=== PATIENT | male | born 1940 | race Caucasian/White ===

== ENCOUNTER 2016-03-19 15:30 | Emergency (ER) | payer MEDICARE ==
[2016-03-19] MEDS ORDERED: FLUTICASONE 50MCG/SPRAY NASAL 16GM EA NOSTRIL STA (16:15)
--- NOTE | 2016-03-19 16:19 | ED ---
ENT HPI - General Chief complaint: ENT Stated complaint: Nose Bleed Time Seen by Provider: 03/19/16 16:05 Source: patient, RN notes reviewed Mode of arrival: ambulatory Limitations: no limitations - History of Present Illness Initial comments: 75 yo male presents to the ER with cc of epistaxis. Patient has had 2 bloody noses today. Patient is on Eliquis. Patient denies any trauma or injury. Patient denies any sickness lately. Patient was able to stop the bloody nose at home the first time but then the second one started. Patient denies any other symptoms at this time. Patient denies any recent fever, chills, shortness of breath, chest pain, back pain, abdominal pain, nausea vomiting, numbness or tingling, dysuria or hematuria, constipation or diarrhea, headaches or visual changes, or any other current symptoms. - Related Data Home Medications Medication Instructions Recorded Confirmed Carvedilol [Coreg*] 12.5 mg PO AC-BID 07/13/13 03/19/16 Isosorbide Mononitrate [Imdur] 30 mg PO BID 07/13/13 03/19/16 Simvastatin [Zocor] 20 mg PO HS 07/13/13 03/19/16 Tiotropium 18 Mcg/Puff [Spiriva] 1 cap INHALATION RT-DAILY 07/13/13 03/19/16 hydrALAZINE HCL 25 mg PO BID 07/13/13 03/19/16 Tetrahydrozoline 0.05% Ophth 1 drop BOTH EYES TID PRN 05/16/14 03/19/16 [Visine Eye Drops] Albuterol Inhaler [Ventolin Hfa 1 - 2 puff INHALATION RT-Q6H PRN 10/08/14 Inhaler] Budesonide-Formot 160-4.5 Mcg 2 puff INHALATION RT-BID 10/08/14 03/19/16 [Symbicort 160-4.5 Mcg Inhaler] Folic Acid 1 mg PO DAILY 10/08/14 03/19/16 Ipratropium-Albuterol Nebulize 3 ml INHALATION RT-QID PRN 10/08/14 03/19/16 [Duoneb 0.5 mg-3 mg/3 ml Soln] Apixaban [Eliquis] 2.5 mg PO BID 03/19/16 03/19/16 Ascorbic Acid [Vitamin C] 250 mg PO DAILY 03/19/16 03/19/16 Aspirin EC [Ecotrin Low Dose] 81 mg PO DAILY 03/19/16 03/19/16 Ferrous Sulfate [Feosol] 325 mg PO TID 03/19/16 03/19/16 Furosemide [Lasix] 40 mg PO BID 03/19/16 03/19/16 Nitroglycerin Sl Tabs [Nitrostat] 0.4 mg SUBLINGUAL Q5M PRN 03/19/16 03/19/16 Polyethylene Glycol 3350 [Miralax] 17 gm PO DAILY 03/19/16 03/19/16 Potassium Chloride ER [K-Dur 20] 20 meq PO DAILY 03/19/16 03/19/16 Previous Rx's Medication Instructions Recorded Spironolactone [Aldactone] 25 mg PO DAILY #30 tab 05/19/14 Docusate [Colace] 100 mg PO BID PRN #0 cap 10/13/14 Psyllium Husk 100% [Metamucil 6 gm PO DAILY PRN #1 10/13/14 Packet] Allergies Allergy/AdvReac Type Severity Reaction Status Date / Time No Known Allergies Allergy Verified 03/19/16 16:12 Review of Systems ROS Statement: Those systems with pertinent positive or pertinent negative responses have been documented in the HPI. ROS Other: All systems not noted in ROS Statement are negative. Past Medical History Past Medical History: Atrial Fibrillation, Coronary Artery Disease (CAD), Heart Failure, COPD, CVA/TIA, Hyperlipidemia, Hypertension, Myocardial Infarction ([place]) , Sleep Apnea/CPAP/BIPAP Additional Past Medical History / Comment(s): blood transfusion/ANEMIA, STOPPED USING HIS CPAP MACHINE YEARS AGO, CONSTIPATION, SMALL SLIDING HIATAL HERNIA AND SMALL POLYP REMOVED.,HX MILD RENAL FAILURE.PT STATED HAS BEEN TRYING TO LOSE WT DOWN FROM 250 TO 236 Last Myocardial Infarction Date:: HAD X2 LAST ONE 2002 History of Any Multi-Drug Resistant Organisms: None Reported Past Surgical History: Appendectomy, Coronary Bypass/CABG Additional Past Surgical History / Comment(s): TRIPLE BYPASS, COLONOSCOPY/EGD Additional Past Anesthesia/Blood Transfusion Reaction / Comment(s): CLAUSTERPHOBIA Past Psychological History: No Psychological Hx Reported Smoking Status: Former smoker Past Alcohol Use History: Occasional Past Drug Use History: None Reported - Past Family History Father Family Medical History: Cancer Additional Family Medical History / Comment(s): OF PANCAREATIC CANER Mother Family Medical History: Diabetes Mellitus Additional Family Medical History / Comment(s): AT AGE 90 WAS IN PRETTY GOOD HEALTH FROM OLD AGE Brother(s) Family Medical History: Diabetes Mellitus Additional Family Medical History / Comment(s): X2 BROTHERS HAVE DIABETES General Exam Limitations: no limitations General appearance: alert, in no apparent distress Head exam: Present: atraumatic, normocephalic, normal inspection ENT exam: Present: normal exam, mucous membranes moist, other (bleeding noted on Kesselbach plexus in left anterior nare) Neck exam: Present: normal inspection. Absent: tenderness, meningismus, lymphadenopathy Respiratory exam: Present: normal lung sounds bilaterally. Absent: respiratory distress, wheezes, rales, rhonchi, stridor Cardiovascular Exam: Present: regular rate Neurological exam: Present: alert, oriented X3, CN II-XII intact. Absent: motor sensory deficit Psychiatric exam: Present: normal affect, normal mood Skin exam: Present: warm, dry, intact, normal color. Absent: rash Course Vital Signs 03/19/16 15:41 Temperature 97.0 F L Pulse Rate 72 Respiratory 18 Rate Blood Pressure 108/55 O2 Sat by Pulse 97 Oximetry Medical Decision Making - Medical Decision Making 75-year-old male presents to the emergency Department chief complaint of left- sided epistaxis. This time patient undergo cleansing of the nose. At this time and the patient knows was clamped and the bleeding did subside. We discussed Follow-Up. We Discussed Return Parameters. We Discussed All the Patient's and Family's Questions. They Stated They Understood. This Time the Patient Will Be Discharged Home. Disposition Clinical Impression: Anterior epistaxis Disposition: HOME SELF-CARE Condition: Stable Instructions: Nosebleed (ED) Additional Instructions: Please use medication as discussed. Please follow up with family doctor if symptoms have not improved over the next two days. Please return to the emergency room if your symptoms increase or worsen or for any other concerns. No touching the nose blowing the nose is no picking the nose and tells Wednesday morning Apply bacitracin and Neosporin or Vaseline to the upper lip just under the nose. If you do develop another nosebleed spray Afrin up each nostril and crampyfor 15 minutes and reassessed you can plan for another 15 minutes as needed. Referrals: Nasim Thacker DO [Primary Care Provider] - 1-2 days Time of Disposition: 17:20
[2016-03-19] MEDS ORDERED: OXYMETAZOLINE 0.05% NASL SPRAY 15 ML NASAL STA (16:22)
[2016-03-19 17:32] VITALS: BP 118/58; PULSE 85; RESP 24; TEMP 97.9
== END 2016-03-19 17:31 | disposition home or self-care (01) ==
LOC: EC 15:30
DX: R04.0 Epistaxis (principal); I48.91 Unspecified atrial fibrillation; E78.5 Hyperlipidemia, unspecified; I50.9 Heart failure, unspecified; J44.9 Chronic obstructive pulmonary disease, unspecified; I10 Essential (primary) hypertension; I25.10 Atherosclerotic heart disease of native coronary artery without angina pectoris; I25.2 Old myocardial infarction; Z99.89 Dependence on other enabling machines and devices; G47.30 Sleep apnea, unspecified; Z79.899 Other long term (current) drug therapy; Z79.51 Long term (current) use of inhaled steroids; Z79.82 Long term (current) use of aspirin; Z79.01 Long term (current) use of anticoagulants; Z86.73 Personal history of transient ischemic attack (TIA), and cerebral infarction without residual deficits; Z87.891 Personal history of nicotine dependence
CPT/HCPCS: 99283

== ENCOUNTER → 2016-04-11 | Outpatient (CLI) | payer MEDICARE ==
--- NOTE | 2016-04-11 10:35 | CT ---
EXAMINATION TYPE: CT chest wo con DATE OF EXAM: 04/11/2016 10:23 AM COMPARISON: 07/14/2010 HISTORY: SOB, Abnormal finding CT DLP: 582.50 mGycm Automated exposure control for dose reduction was used. FINDINGS: The heart is enlarged. Emphysematous changes are noted. Sternotomy noted. Degenerative change of the spine. Within the right upper lobe is a spiculated lesion measuring 1.4 cm. Small malignancy not excluded. R ecommend PET scan correlation. A 6 mm nodule superior segment left lower lobe image 28 may be postinflammatory. Lack of IV contrast limits assessment for adenopathy or mass. There are numerous subpleural nodules m easuring less than centimeter are felt most likely postinflammatory. Image 53 demonstrates a 2 mm rig ht lower lobe pulmonary nodule. Right lung apex. Nonspecific nodularity adrenal glands be seen with adrenal adenoma. There is vascular calcifications and evidence of cholelithiasis. No pleural effusion or pneumothorax. Coronary artery calcification seen. Lack of contrast limits assessment for adenopathy. Calcified subcarinal adenopathy noted. IMPRESSION: COPD WITH NO ACUTE INFILTRATE. HOWEVER, THERE IS A SPICULATED 1.4 CM NODULE. ADDITIONAL TINY NODULARI TY DISCUSSED ABOVE IS TOO SMALL TO CHARACTERIZE. RECOMMEND FOLLOW-UP PET SCAN TO ASSESS FOR MALIGN ZOE. THERE IS A EXOPHYTIC LESION EXTENDING OFF MID POLE RIGHT KIDNEY MEASURING 2.6 CM AND 60 [place] UN ITS DOES NOT MEET THE CRITERIA OF A SIMPLE CYST. WOULD RECOMMEND FOLLOW-UP ULTRASOUND TO ASSESS FOR S OLID MASS.. 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
== END | disposition home or self-care (01) ==
LOC: RADCTMAIN 09:40
PROVIDERS: ATTEND Family Medicine
DX: J44.9 Chronic obstructive pulmonary disease, unspecified (principal); R91.8 Other nonspecific abnormal finding of lung field; I25.10 Atherosclerotic heart disease of native coronary artery without angina pectoris; I51.7 Cardiomegaly
CPT/HCPCS: 71250

== ENCOUNTER 2016-08-09 21:12 | Inpatient (IN) | payer OTHER, MEDICARE ==
[2016-08-09] MEDS ORDERED: MORPHINE SULFATE 2 MG/ML SYRINGE IVP ONE (21:35)
[2016-08-09] MEDS ORDERED: ONDANSETRON 4 MG/2 ML VIAL IM STA (21:35)
[2016-08-09] MEDS ORDERED: SODIUM CHLORIDE 0.9% 1,000 ML IV STA (21:36)
--- NOTE | 2016-08-09 22:05 | XR ---
EXAMINATION TYPE: XR Hip Complete RT DATE OF EXAM: 08/09/2016 9:59 PM COMPARISON: NONE HISTORY: Fell and hit pain TECHNIQUE: 3 views FINDINGS: There is a nondisplaced intratrochanteric fracture of the right femur. There is no dislocat ion. There is atherosclerotic vascular calcification. IMPRESSION: Acute intertrochanteric fracture right femur.
--- NOTE | 2016-08-09 22:07 | XR ---
EXAMINATION TYPE: XR chest 1V DATE OF EXAM: 08/09/2016 9:49 PM COMPARISON: 05/15/2014 HISTORY: Syncope TECHNIQUE: Single frontal view of the chest is obtained. FINDINGS: There is coarsening of interstitial markings. There is no heart failure. There are sternal wires. There is slight blunting of right costophrenic angle. IMPRESSION: No heart failure. Mild pulmonary fibrotic changes. Small right pleural effusion or pleural reaction. This is increased compared to last exam.
--- NOTE | 2016-08-09 22:18 | XR ---
EXAM: XR Right Knee, 1 or 2 views CLINICAL HISTORY: Reason: Status post fall TECHNIQUE: Frontal and lateral views of the right knee. COMPARISON: No relevant prior studies available. FINDINGS: Bones/joints: The bones are mildly demineralized. No acute fracture or dislocation is seen. No joint effusion. There are minor degenerative changes without significant joint space narrowing. Mild smooth, nonaggressive appearing periosteal reaction is seen along the medial margin of the proximal fibular shaft. Soft tissues: Unremarkable. Vasculature: Diffuse arterial vascular calcifications are present. Tiny pretibial phlebolith noted. IMPRESSION: No acute right knee fracture or dislocation is seen, as above. Note, acute nondisplaced fractures may initially be inapparent, and short- term follow-up could be considered if concern or symptoms persist.
[2016-08-09 22:34] LABS: Anisocytosis Slight; Basophils % (A) 0 %; CH 26.8; CHCM 30.9; Eosinophils # (A) 0.1 k/uL (0-0.7); Eosinophils % (A) 1 %; HCT 31.3 % (39.0-53.0); HDW 2.77; HGB 9.8 gm/dL (13.0-17.5); Hypochromasia Moderate; Luc # (Auto) 0.15; Luc % (Auto) 1; Lymphocytes # (A) 1.2 k/uL (1.0-4.8); Lymphocytes % (A) 11 %; MCH 27.1 pg (25.0-35.0); MCHC 31.1 g/dL (31.0-37.0); Mean Platelet Volume 8.5; Monocytes # (A) 0.5 k/uL (0-1.0); Monocytes % (A) 4 %; Neutrophils # (A) 9.4 k/uL (1.3-7.7); Neutrophils % (A) 83 %; RDW 17.2 % (11.5-15.5); WBC 11.3 k/uL (3.8-10.6); WBC (Perox) 11.59
[2016-08-09 22:39] LABS: INR 1.3 (<1.1); Prothrombin Time 12.5 sec (9.0-12.0)
[2016-08-09 22:44] LABS: Calcium 8.7 mg/dL (8.4-10.2); Potassium 4.7 mmol/L (3.5-5.1); Total Bilirubin 0.6 mg/dL (0.2-1.3); Total Protein 6.5 g/dL (6.3-8.2)
--- NOTE | 2016-08-09 23:01 | ED ---
Fall HPI - General Chief Complaint: Fall Stated Complaint: Possible Hip fx Time Seen by Provider: 08/09/16 21:17 Source: patient, EMS Mode of arrival: EMS - History of Present Illness Initial Comments: 75 years old male, got done now with his upper at his son's house in now because he was heading to his own place family dog ran towards him, patient fell and landed on the right buttocks and now complaining about excruciating pain and he has a hard time bearing weight and complaining about some pain in the right knee as he is well no head injury no loss of consciousness, it was an accident there was no prior palpitation or dizziness or chest pain which caused the fall. Review of system is negative otherwise - Related Data Home Medications Medication Instructions Recorded Confirmed Carvedilol [Coreg*] 12.5 mg PO AC-BID 07/13/13 08/09/16 Isosorbide Mononitrate [Imdur] 30 mg PO BID 07/13/13 08/09/16 Tiotropium 18 Mcg/Puff [Spiriva] 1 cap INHALATION RT-DAILY 07/13/13 08/09/16 hydrALAZINE HCL 25 mg PO BID 07/13/13 08/09/16 Albuterol Inhaler [Ventolin Hfa 1 - 2 puff INHALATION RT-Q6H PRN 10/08/14 Inhaler] Budesonide-Formot 160-4.5 Mcg 2 puff INHALATION RT-BID 10/08/14 08/09/16 [Symbicort 160-4.5 Mcg Inhaler] Folic Acid 1 mg PO DAILY 10/08/14 08/09/16 Ipratropium-Albuterol Nebulize 3 ml INHALATION RT-QID PRN 10/08/14 08/09/16 [Duoneb 0.5 mg-3 mg/3 ml Soln] Apixaban [Eliquis] 2.5 mg PO BID 03/19/16 08/09/16 Ascorbic Acid [Vitamin C] 250 mg PO DAILY 03/19/16 08/09/16 Aspirin EC [Ecotrin Low Dose] 81 mg PO DAILY 03/19/16 08/09/16 Ferrous Sulfate [Feosol] 650 mg PO TID 03/19/16 08/09/16 Furosemide [Lasix] 80 mg PO DAILY 03/19/16 08/09/16 Nitroglycerin Sl Tabs [Nitrostat] 0.4 mg SUBLINGUAL Q5M PRN 03/19/16 08/09/16 Polyethylene Glycol 3350 [Miralax] 17 gm PO DAILY 03/19/16 08/09/16 Potassium Chloride ER [K-Dur 20] 20 meq PO QID 03/19/16 08/09/16 Cyanocobalamin (Vitamin B-12) 1,000 mcg PO DAILY 08/09/16 08/09/16 [Vitamin B-12] Sennosides [Senna] 8.6 mg PO DAILY PRN 08/09/16 08/09/16 Simvastatin 40 mg PO HS 08/09/16 08/09/16 Allergies Allergy/AdvReac Type Severity Reaction Status Date / Time No Known Allergies Allergy Verified 08/09/16 21:20 Review of Systems ROS Statement: Those systems with pertinent positive or pertinent negative responses have been documented in the HPI. ROS Other: All systems not noted in ROS Statement are negative. Past Medical History Past Medical History: Atrial Fibrillation, Coronary Artery Disease (CAD), Heart Failure, COPD, CVA/TIA, Hyperlipidemia, Hypertension, Myocardial Infarction ([place]) , Sleep Apnea/CPAP/BIPAP Additional Past Medical History / Comment(s): blood transfusion/ANEMIA, STOPPED USING HIS CPAP MACHINE YEARS AGO, CONSTIPATION, SMALL SLIDING HIATAL HERNIA AND SMALL POLYP REMOVED.,HX MILD RENAL FAILURE.PT STATED HAS BEEN TRYING TO LOSE WT DOWN FROM 250 TO 236 Last Myocardial Infarction Date:: HAD X2 LAST ONE 2002 History of Any Multi-Drug Resistant Organisms: None Reported Past Surgical History: Appendectomy, Coronary Bypass/CABG Additional Past Surgical History / Comment(s): TRIPLE BYPASS, COLONOSCOPY/EGD Additional Past Anesthesia/Blood Transfusion Reaction / Comment(s): CLAUSTERPHOBIA Past Psychological History: No Psychological Hx Reported Smoking Status: Former smoker Past Alcohol Use History: Occasional Past Drug Use History: None Reported - Past Family History Father Family Medical History: Cancer Additional Family Medical History / Comment(s): OF PANCAREATIC CANER Mother Family Medical History: Diabetes Mellitus Additional Family Medical History / Comment(s): AT AGE 90 WAS IN PRETTY GOOD HEALTH FROM OLD AGE Brother(s) Family Medical History: Diabetes Mellitus Additional Family Medical History / Comment(s): X2 BROTHERS HAVE DIABETES General Exam - General Exam Comments Initial Comments: General: The patient is awake and alert, in no distress, he is in pain especially when he moves his Skin: Skin is warm and dry and no rashes or lesions are noted. Eye: Pupils are equal, round and reactive to light, extra-ocular movements are intact; there is normal conjunctiva bilaterally. Ears, nose, mouth and throat: There are moist mucous membranes and no oral lesions. Neck: The neck is supple, there is no tenderness Cardiovascular: There is a regular rate and rhythm. No murmur, rub or gallop is appreciated. The scar from his previous CABG in the sternal area Respiratory: To auscultation bilateral, decreased breath sounds really Gastrointestinal: Soft, non-distended, non-tender abdomen without masses or organomegaly noted. There is no rebound or guarding present. Bowel sounds are unremarkable. Back: There is no tenderness to palpation in the midline. There is no obvious deformity. Musculoskeletal: Right lower extremity he is rolling and external rotation, any movement causes excruciating pain distal lower extremity is intact as well as neurovascular exam is concerned his motor sensory functions are intact Neurological: CN II-XII intact, Cranial nerves III through XII are intact. There are no obvious motor or sensory deficits. Coordination appears grossly intact. Speech is normal. Psychiatric: Cooperative, appropriate mood & affect, normal judgment. Limitations: no limitations Course Vital Signs 08/09/16 21:14 Temperature 97.4 F L Pulse Rate 78 Respiratory 20 Rate Blood Pressure 103/56 O2 Sat by Pulse 97 Oximetry EKG reveals atrial fibrillation ventricular rate of 77 QRS duration is 142 QT/ QTc is 440/497 at the review of this EKG reveals some T-wave inversion in V1 also has some conduction defect in the chest leads V1 and V2 and V3 no ST elevation or ST depression noticed in this EKG Medical Decision Making - Lab Data Result diagrams: 08/09/16 22:23 08/09/16 22:23 Lab Results 08/09/16 08/09/16 08/09/16 Range/Units 22:23 22:23 22:23 WBC 11.3 H (3.8-10.6) k/uL RBC 3.60 L (4.30-5.90) m/uL Hgb 9.8 L (13.0-17.5) gm/dL Hct 31.3 L (39.0-53.0) % MCV 87.0 (80.0-100.0) fL MCH 27.1 (25.0-35.0) pg MCHC 31.1 (31.0-37.0) g/dL RDW 17.2 H (11.5-15.5) % Plt Count 240 (150-450) k/uL Neutrophils % 83 % Lymphocytes % 11 % Monocytes % 4 % Eosinophils % 1 % Basophils % 0 % Neutrophils # 9.4 H (1.3-7.7) k/uL Lymphocytes # 1.2 (1.0-4.8) k/uL Monocytes # 0.5 (0-1.0) k/uL Eosinophils # 0.1 (0-0.7) k/uL Basophils # 0.0 (0-0.2) k/uL Hypochromasia Moderate Anisocytosis Slight PT 12.5 H (9.0-12.0) sec INR 1.3 (<1.1) Sodium 137 (137-145) mmol/L Potassium 4.7 (3.5-5.1) mmol/L Chloride 105 (98-107) mmol/L Carbon Dioxide 25 (22-30) mmol/L Anion Gap 7 mmol/L BUN 23 H (9-20) mg/dL Creatinine 1.80 H (0.66-1.25) mg/dL Est GFR (MDRD) Af Amer 45 (>60 ml/min/1.73 sqM) Est GFR (MDRD) Non-Af 37 (>60 ml/min/1.73 sqM) Glucose 121 H (74-99) mg/dL Calcium 8.7 (8.4-10.2) mg/dL Total Bilirubin 0.6 (0.2-1.3) mg/dL AST 18 (17-59) U/L ALT 25 (21-72) U/L Alkaline Phosphatase 47 (38-126) U/L Total Protein 6.5 (6.3-8.2) g/dL Albumin 3.0 L (3.5-5.0) g/dL Disposition Clinical Impression: Fall, Closed right hip fracture, Contusion of right knee Disposition: ADMITTED IP TO THIS HOSP Referrals: Nasim Thacker DO [Primary Care Provider] - 1-2 days
[2016-08-09] MEDS ORDERED: HYDROmorphone 1 MG/ML 1 ML SYRINGE IV PRN (23:04)
[2016-08-09] MEDS ORDERED: NALOXONE 0.4 MG/ML 1 ML VIAL IV PRN (23:04)
[2016-08-09] MEDS ORDERED: ONDANSETRON 4 MG/2 ML VIAL IVP PRN (23:04)
[2016-08-09 23:09] LABS: Creatine Kinase MB 1.2 ng/mL (0.0-2.4); Troponin I 0.031 ng/mL (0.000-0.034)
[2016-08-09] MEDS ORDERED: ALBUTEROL NEBULIZED 2.5 MG/3 ML INHALATION PRN (23:15)
[2016-08-09] MEDS ORDERED: IPRATROPIUM-ALBUTEROL 3 ML NEB INHALATION PRN (23:15)
[2016-08-09] MEDS ORDERED: NITROGLYCERIN SL TABS 0.4 MG TAB SUBLINGUAL PRN (23:15)
[2016-08-09] MEDS ORDERED: SENNOSIDES 8.6 MG TAB PO PRN (23:15)
[2016-08-10 00:22] VITALS: BMI 27.5
[2016-08-10] MEDS: SODIUM CHLORIDE 0.9% 1,000 ML IV SCH ×2 (01:23→19:56)
[2016-08-10] MEDS: HYDROmorphone 1 MG/ML 1 ML SYRINGE IVP PRN ×3 (04:40→15:14)
[2016-08-10] MEDS: TIOTROPIUM 18 MCG/PUFF INHALER INHALATION SCH (07:18)
[2016-08-10] MEDS ORDERED: SYMBICORT 160-4.5 MCG INHALER INHALATION SCH (08:00)
[2016-08-10] MEDS: ISOSORBIDE MONONITRATE ER 30 MG TAB.ER.24H PO SCH ×2 (08:56→22:31)
[2016-08-10] MEDS: CARVEDILOL 12.5 MG TAB PO SCH ×2 (08:56→17:41)
[2016-08-10] MEDS: hydrALAZINE HCL 25 MG TAB PO SCH ×2 (08:56→22:31)
[2016-08-10] MEDS: POTASSIUM CHLORIDE ER 20 MEQ TAB.ER PO SCH ×5 (08:56→22:33)
[2016-08-10] MEDS: POLYETHYLENE GLYCOL 3350 17 GM POWD.PACK PO SCH (08:57)
--- NOTE | 2016-08-10 10:55 | P.HPOR ---
History of Present Illness H&P Date: 08/10/16 Chief Complaint: Right intertrochanteric hip fracture status post fall Patient is very pleasant 75-year-old male who seen him at the bedside for further evaluation after he sustained a fall yesterday, 08/09/2016, resulting in a right intertrochanteric hip fracture. Patient was brought to [facility] for further evaluation. Patient is seen with his family present at the bedside. Family states a dog was running towards him that he did not see. He was caught off guard, lost his balance, and fell on his buttock resulting in his fracture. Since that time he has had significant pain at the right hip. He has pain with any movement of the right lower extremity and with palpation of the right hip. He states is also had some pain towards the right knee. He has not been able to ambulate since the accident. Patient does have a history of her heart surgery including CABG and a diagnosis of atrial fibrillation. Patient is currently on Eliquis. He did take Eliquis yesterday prior to his fall. Patient also recently had right upper lobe lung surgery performed at [facility] in [place] on 06/22/2016. Family states he just returned home from rehabilitation approximately 10 days ago. Past Medical History Past Medical History: Atrial Fibrillation, Coronary Artery Disease (CAD), Heart Failure, COPD, CVA/TIA, Hyperlipidemia, Hypertension, Myocardial Infarction ([place]) , Sleep Apnea/CPAP/BIPAP Additional Past Medical History / Comment(s): blood transfusion/ANEMIA, STOPPED USING HIS CPAP MACHINE YEARS AGO, CONSTIPATION, SMALL SLIDING HIATAL HERNIA AND SMALL POLYP REMOVED.,HX MILD RENAL FAILURE. Last Myocardial Infarction Date:: HAD X2 LAST ONE 2002 History of Any Multi-Drug Resistant Organisms: None Reported Past Surgical History: Appendectomy, Coronary Bypass/CABG Additional Past Surgical History / Comment(s): TRIPLE BYPASS, COLONOSCOPY/EGD Additional Past Anesthesia/Blood Transfusion Reaction / Comment(s): CLAUSTERPHOBIA Past Psychological History: No Psychological Hx Reported Smoking Status: Former smoker Past Alcohol Use History: Occasional Past Drug Use History: None Reported - Past Family History Father Family Medical History: Cancer Additional Family Medical History / Comment(s): of pancreatic cancer Mother Family Medical History: Diabetes Mellitus Additional Family Medical History / Comment(s): AT AGE 90 WAS IN PRETTY GOOD HEALTH FROM OLD AGE Brother(s) Family Medical History: Diabetes Mellitus Additional Family Medical History / Comment(s): 2 BROTHERS HAVE DIABETES Medications and Allergies Home Medications Medication Instructions Recorded Confirmed Type Carvedilol [Coreg*] 12.5 mg PO AC-BID 07/13/13 08/09/16 History Isosorbide Mononitrate [Imdur] 30 mg PO BID 07/13/13 08/09/16 History Tiotropium 18 Mcg/Puff [Spiriva] 1 cap INHALATION RT-DAILY 07/13/13 08/09/16 History hydrALAZINE HCL 25 mg PO BID 07/13/13 08/09/16 History Albuterol Inhaler [Ventolin Hfa 1 - 2 puff INHALATION RT-Q6H PRN 10/08/14 History Inhaler] Budesonide-Formot 160-4.5 Mcg 2 puff INHALATION RT-BID 10/08/14 08/09/16 History [Symbicort 160-4.5 Mcg Inhaler] Folic Acid 1 mg PO DAILY 10/08/14 08/09/16 History Ipratropium-Albuterol Nebulize 3 ml INHALATION RT-QID PRN 10/08/14 08/09/16 History [Duoneb 0.5 mg-3 mg/3 ml Soln] Apixaban [Eliquis] 2.5 mg PO BID 03/19/16 08/09/16 History Ascorbic Acid [Vitamin C] 250 mg PO DAILY 03/19/16 08/09/16 History Aspirin EC [Ecotrin Low Dose] 81 mg PO DAILY 03/19/16 08/09/16 History Ferrous Sulfate [Feosol] 650 mg PO TID 03/19/16 08/09/16 History Furosemide [Lasix] 80 mg PO DAILY 03/19/16 08/09/16 History Nitroglycerin Sl Tabs [Nitrostat] 0.4 mg SUBLINGUAL Q5M PRN 03/19/16 08/09/16 History Polyethylene Glycol 3350 [Miralax] 17 gm PO DAILY 03/19/16 08/09/16 History Potassium Chloride ER [K-Dur 20] 20 meq PO QID 03/19/16 08/09/16 History Cyanocobalamin (Vitamin B-12) 1,000 mcg PO DAILY 08/09/16 08/09/16 History [Vitamin B-12] Sennosides [Senna] 8.6 mg PO DAILY PRN 08/09/16 08/09/16 History Simvastatin 40 mg PO HS 08/09/16 08/09/16 History Allergies Allergy/AdvReac Type Severity Reaction Status Date / Time No Known Allergies Allergy Verified 08/09/16 21:20 Physical Examination Physical exam: Patient is sleepy but arousable and is able to answer questions appropriately Vital signs stable Good chest excursion with deep inspiration and expiration; patient on O2 nasal cannula Evidence of a well-healed incision over the midline of the sternum Evidence of 3 healing incisions along the right lateral rib cage Abdomen soft nontender Right lower extremity is internally rotated Pain with palpation of the right hip Significant pain with internal and external rotation of the right hip No pain with internal and external rotation of the left hip Neurovascularly intact bilateral lower extremities Dorsiflexion, plantarflexion, and extensor hallucis longus positive sustained bilaterally Calves are soft and supple; No signs or symptoms of DVT; No calf pain Some general swelling with mild bruising of the right knee; significant pain with palpation of the right knee Patient is unable to perform active range of motion of the right knee due to right hip fracture Results Pertinent studies: Complete x-rays right hip: Acute intertrochanteric fracture of the right femur with no evidence of dislocation X-rays the right knee: No acute right knee fracture or dislocation seen; minor degenerative changes without significant joint space narrowing - Labs Labs: Abnormal Lab Results - Last 24 Hours (Table) 08/09/16 08/09/16 08/09/16 Range/Units 22:23 22:23 22:23 WBC 11.3 H (3.8-10.6) k/uL RBC 3.60 L (4.30-5.90) m/uL Hgb 9.8 L (13.0-17.5) gm/dL Hct 31.3 L (39.0-53.0) % RDW 17.2 H (11.5-15.5) % Neutrophils # 9.4 H (1.3-7.7) k/uL PT (9.0-12.0) sec BUN 23 H (9-20) mg/dL Creatinine 1.80 H (0.66-1.25) mg/dL Glucose 121 H (74-99) mg/dL Total Creatine Kinase 43 L (55-170) U/L Albumin 3.0 L (3.5-5.0) g/dL 08/09/16 Range/Units 22:23 WBC (3.8-10.6) k/uL RBC (4.30-5.90) m/uL Hgb (13.0-17.5) gm/dL Hct (39.0-53.0) % RDW (11.5-15.5) % Neutrophils # (1.3-7.7) k/uL PT 12.5 H (9.0-12.0) sec BUN (9-20) mg/dL Creatinine (0.66-1.25) mg/dL Glucose (74-99) mg/dL Total Creatine Kinase (55-170) U/L Albumin (3.5-5.0) g/dL H & H 08/09/16 Range/Units 22:23 Hgb 9.8 L (13.0-17.5) gm/dL Hct 31.3 L (39.0-53.0) % Coagulation 08/09/16 Range/Units 22:23 INR 1.3 (<1.1) Result Diagrams: 08/09/16 22:23 08/09/16 22:23 Assessment and Plan (1) Intertrochanteric fracture of right hip Status: Acute (2) History of heart bypass surgery Status: Acute (3) History of atrial fibrillation Status: Acute (4) History of lung surgery Status: Acute (5) Contusion of right knee Status: Acute (6) Fall Status: Acute Plan: Plan: 1. Patient will continue to be on bed rest and nonweightbearing on the right lower extremity following right intertrochanteric hip fracture. We'll currently planned for consultation by medicine for surgical clearance. Patient has been taking Eliquis. This medicine has been stopped while here in the hospital. If patient is able to get clearance, we'll plan for surgical intervention late tomorrow afternoon, 08/11/2016. He will become nothing by mouth status at midnight on 08/11/2016. At this time he may continue to urinate with a bedside bottle. If he is having difficulty with urination, we will plan to place a Rivera catheter. We will continue pain control with oral and IV pain medications. We'll plan on hold the oral pain medications prior to surgical intervention. He will be able to eat a heart healthy diet today, 08/10. 2. Surgical intervention was discussed in detail with the patient and his family. Upon medical clearance, we will currently planned for ORIF of the right hip with nail fixation for right intertrochanteric hip fracture. I discussed these issues with the patient at length and I answered all of their questions to the best of my ability and the patient understands. The patient would like to proceed forward with surgical intervention and will sign informed consent. 3. Medicine to follow patient in consult for surgical clearance in anticipation for right hip nail fixation for right intertrochanteric hip fracture. 4. We will continue to follow patient closely Time with Patient: Greater than 30
[2016-08-10] MEDS: FUROSEMIDE 40 MG TAB PO SCH (12:29)
--- NOTE | 2016-08-10 13:02 | XR ---
EXAMINATION TYPE: XR chest 1V portable DATE OF EXAM: 08/10/2016 12:56 PM COMPARISON: Yesterday HISTORY: Preop hip fracture TECHNIQUE: Single frontal view of the chest is obtained. FINDINGS: There is some coarsening of interstitial markings. There is no heart failure. Heart is top normal in size. There are no hilar masses. There are sternal wires. There are chest leads. IMPRESSION: There are some pulmonary fibrotic changes. No gross heart failure. No change compared to yesterday. Minimal pleural reaction is unchanged at the right lung base.
[2016-08-10 13:03] LABS: Appearance,Urine Clear (Clear); Bilirubin,Urine Negative (Negative); Glucose,Urine (UA) Negative (Negative); Ketones,Urine Negative (Negative); Leukocyte Esterase,Urine Trace (Negative); Mucus,Urine Rare /hpf; Nitrite,Urine Negative (Negative); PH, Urine 5.5 (5.0-8.0); Particle Count 2623; Protein,Urine Trace (Negative); RBC,Urine 13 /hpf (0-5); Specific Gravity,Urine 1.017 (1.001-1.035); Squamous Epithelial Cell,Urine <1 /hpf (0-4); UA Billing (MACRO vs. MICRO) MICRO; Urobilinogen,Urine <2.0 mg/dL (<2.0); WBC,Urine 2 /hpf (0-5)
[2016-08-10] MEDS ORDERED: ALPRAZolam 0.25 MG TAB PO PRN (14:39)
[2016-08-10] MEDS: IPRATROPIUM 0.5 MG/2.5 ML NEBU INHALATION SCH ×2 (14:55→19:39)
--- NOTE | 2016-08-10 15:44 | CT ---
EXAMINATION TYPE: CT hip RT wo con DATE OF EXAM: 08/10/2016 3:29 PM COMPARISON: NONE HISTORY: Right hip pain after injury. CT DLP: 1095.20 mGycm Automated exposure control for dose reduction was used. FINDINGS: There is a comminuted fracture of the right femoral neck that extends from the superior lateral aspec t of the head to the lesser trochanter. There is no dislocation. The acetabulum appears intact. There is very mild impaction. IMPRESSION: ACUTE MILDLY IMPACTED FRACTURE OF THE INTERTROCHANTERIC RIGHT FEMUR. FRACTURE LINE EXTENDS TO THE FEM ORAL HEAD. NO CHANGE IN POSITION COMPARED TO EXAM YESTERDAY.
[2016-08-10] MEDS: HYDROcodone/APAP 5-325MG 1 EACH TAB PO PRN (19:10)
--- NOTE | 2016-08-10 19:15 | CONS ---
DATE OF CONSULTATION: 08/10/2016 REASON FOR CONSULTATION: Advice regarding atrial fibrillation, chronic obstructive pulmonary disease and other multiple medical issues. Requested by Orthopedic Surgery. HISTORY OF PRESENT ILLNESS: This 75-year-old gentleman with a past medical of atrial fibrillation, CAD, COPD, history of CVA, hypertension, hyperlipidemia, myocardial infarction, appendectomy, CAD, CABG, being followed by Dr. Nasim Thacker in the outpatient setting apparently was knocked down by the dog at his son's house and the patient was subsequently noted to have a right hip fracture and the patient was admitted for further evaluation and treatment. Orthopedics is following the patient closely. There is on history of any fevers or rigors. No history of headache or loss of consciousness or seizures. No chest pain or palpitations. No hematemesis or melena at this time. The patient has seen Dr. Alysha Dunaway in the outpatient setting. The patient was taking Eliquis, the last dose was prior to his fall. The patient also recently had right lower lobe surgery apparently malignancy in the [facility] in early June. There is no history of fevers or rigors. PAST MEDICAL HISTORY: History of atrial fibrillation, history of CAD, COPD, history of CVA, TIA, hypertension, hyperlipidemia, myocardial infarction, history of blood transfusion, history of constipation, history of CAD with CABG, history of claustrophobia, recent surgery as mentioned earlier. Home medications: 1. ( ) 0.6 daily p.r.n. 2. MiraLAX 17 grams daily. 3. Spiriva 1 daily. 4. Simvastatin 40 mg at bedtime. 5. Eliquis 2.5 mg b.i.d. 6. Hydralazine 25 mg b.i.d. 7. K-Dur 20 mEq daily. 8. Imdur 30 mg p.o. daily. 9. Lasix 80 mg daily. 10. Folic acid 1 mg daily. 11. Iron sulfate 62 p.o. t.i.d. 12. Vitamin B12, 1000 mcg daily. 13. Coreg 12.5 mg b.i.d. 14. Ecotrin 8.5 mg b.i.d. 15. Nitrostat sublingual p.r.n. 16. DuoNeb q.i.d. and p.r.n. 17. ( ) 2 puffs b.i.d. 18. Vitamin C, 250 mg daily. ALLERGIES: No known drug allergies. FAMILY HISTORY: History of pancreatic cancer in the family. SOCIAL HISTORY: Previous history of smoking. Occasional alcohol. REVIEW OF SYSTEMS: ENT: No diminishing vision or hearing. CARDIOVASCULAR: As mentioned. GI: As mentioned. : No dysuria or hematuria. NERVOUS SYSTEM: No numbness or weakness. ALLERGIES/IMMUNOLOGY: None. MUSCULOSKELETAL: As mentioned earlier. HEMATOLOGY/ONCOLOGY: As mentioned. PSYCHIATRY: As mentioned. PHYSICAL EXAM: VITAL SIGNS: Alert, oriented x3. Pulse 99, blood pressure 111/64, respirations 18, temperature 98.4, pulse ox 92% on 2 L. HEENT: Conjunctivae normal. Oral mucosa moist. NECK: No JVD. No carotid bruits. CARDIOVASCULAR: S1 and S2 muffled. LUNGS: Breath sounds diminished at the bases. Few scattered rhonchi and crackles. Expiratory wheezing also present. ABDOMEN: Soft, nontender. No masses palpable. EXTREMITIES: Legs, status post right hip fracture. NERVOUS SYSTEM: Higher functions as aforementioned. Moves all extremities equally. No focal deficits. SKIN: No rashes or ulcers. LYMPHATIC: No lymph nodes palpable in the neck, axillae or groin. LABS: WBC 11, hemoglobin is 9.8, creatinine is 1.8. The hip x-ray shows right femoral fracture. ASSESSMENT: 1. Acute right femoral fracture. 2. History of recent right lower lobectomy for possible malignancy. 3. Increased WBC. 4. Anemia, normocytic. 5. Increased creatinine at 1.8, possibly chronic kidney disease stage III. 6. Hypoalbuminemia with mild to moderate protein calorie malnutrition. 7. Atrial fibrillation, on Eliquis. 8. History of coronary artery disease, coronary artery bypass grafting. 9. History of congestive heart failure, ejection fraction unknown. 10. History of chronic obstructive pulmonary disease. 11. CVA/TIA. 12. Hypertension. 13. Hypertension. 14. Myocardial infarction. 15. History of sleep apnea. 16. History of appendectomy. 17. Claustrophobia. 18. Remote history of nicotine dependency. 19. FULL CODE. RECOMMENDATIONS AND DISCUSSION: This 75-year-old gentleman who presented with multiple medical problems. We will monitor the patient closely. Continue with symptomatic treatment. Recommend a chest x-ray on a stat basis, showed some pulmonary fibrotic changes and no acute abnormalities noted. Also recommend to optimize cardiorespiratory status. I would recommend bronchodilators. Monitor creatinine closely. Repeat labs. Resume the home medications. Currently the patient is stable and will be cleared for surgery with some added risk because of the above-mentioned multiple complex medical issues. Currently the patient is stable.
[2016-08-10] MEDS: LEVALBUTEROL NEB (CONC) 1.25 MG/0.5 ML AMP INHALATION SCH (19:39)
[2016-08-10] MEDS: SYMBICORT 160-4.5 MCG INHALER INHALATION SCH (19:39)
[2016-08-10] MEDS ORDERED: TEMAZEPAM 15 MG CAP PO PRN (21:00)
[2016-08-10] MEDS: ATORVASTATIN 20 MG TAB PO SCH (22:04)
[2016-08-11] MEDS: LEVALBUTEROL NEB (CONC) 1.25 MG/0.5 ML AMP INHALATION SCH ×4 (03:41→21:00)
[2016-08-11] MEDS: HYDROmorphone 1 MG/ML 1 ML SYRINGE IVP PRN ×3 (04:32→15:16)
[2016-08-11] MEDS: SODIUM CHLORIDE 0.9% 1,000 ML IV SCH ×3 (06:12→20:09)
[2016-08-11 06:46] LABS: Anisocytosis Slight; Basophils % (A) 0 %; CH 26.1; Eosinophils # (A) 0.3 k/uL (0-0.7); Eosinophils % (A) 4 %; HDW 2.65; HGB 8.5 gm/dL (13.0-17.5); Hypochromasia Marked; Luc # (Auto) 0.17; Luc % (Auto) 2; Lymphocytes # (A) 0.9 k/uL (1.0-4.8); Lymphocytes % (A) 12 %; MCH 26.5 pg (25.0-35.0); MCHC 29.5 g/dL (31.0-37.0); MCV 90.1 fL (80.0-100.0); Mean Platelet Volume 8.6; Monocytes # (A) 0.4 k/uL (0-1.0); Monocytes % (A) 6 %; Neutrophils # (A) 5.8 k/uL (1.3-7.7); Neutrophils % (A) 76 %; RBC 3.22 m/uL (4.30-5.90); RDW 17.1 % (11.5-15.5); WBC 7.6 k/uL (3.8-10.6); WBC (Perox) 7.73
[2016-08-11 07:00] LABS: Anion Gap 4 mmol/L; Blood Urea Nitrogen 25 mg/dL (9-20); Carbon Dioxide 24 mmol/L (22-30); Chloride 108 mmol/L (98-107); Glucose 104 mg/dL (74-99); Non-African American GFR(MDRD) 54 (>60 ml/min/1.73 sqM); Potassium 4.7 mmol/L (3.5-5.1); Sodium 136 mmol/L (137-145)
[2016-08-11] MEDS: TIOTROPIUM 18 MCG/PUFF INHALER INHALATION SCH (07:11)
[2016-08-11] MEDS: IPRATROPIUM 0.5 MG/2.5 ML NEBU INHALATION SCH ×4 (07:11→21:00)
[2016-08-11] MEDS: SYMBICORT 160-4.5 MCG INHALER INHALATION SCH ×2 (07:11→21:00)
[2016-08-11] MEDS: PANTOPRAZOLE 40 MG TABLET PO SCH (09:14)
[2016-08-11] MEDS: FUROSEMIDE 40 MG TAB PO SCH (09:14)
[2016-08-11] MEDS: hydrALAZINE HCL 25 MG TAB PO SCH (09:14)
[2016-08-11] MEDS: POLYETHYLENE GLYCOL 3350 17 GM POWD.PACK PO SCH (09:14)
[2016-08-11] MEDS: POTASSIUM CHLORIDE ER 20 MEQ TAB.ER PO SCH ×4 (09:14→21:27)
[2016-08-11] MEDS: ISOSORBIDE MONONITRATE ER 30 MG TAB.ER.24H PO SCH ×2 (09:14→23:48)
--- NOTE | 2016-08-11 09:15 | P.PN ---
Subjective Principal diagnosis: Right intertrochanteric hip fracture extending into the right femoral head status post fall Patient is a pleasant 75-year-old male who is seen and examined at bedside for follow-up evaluation in regards to his right hip. Patient was seen and examined yesterday by Dr. Jarrod Prajapati as well. Since being seen exam yesterday, a CT of the right hip has been performed. Patient states his symptoms have not had any changes compared to yesterday. He continues to have significant right hip pain that is exacerbated with any movement of the right lower extremity. He continues to have some pain at the right knee but too much less degree as compared to his right hip. He remained on bedrest and nonweightbearing. We discussed we are currently planning for surgical intervention regards to his right hip either today, 08/11/2016, or tomorrow, 08/12/2016. He has been seen and examined by Dr. Gaston and medicine who states in his dictation patient is currently stable and will be cleared for surgery with some added risk because of his multiple complex medical issues. Patient was previously on Eliquis and this medication has been placed on hold. He needs remain off Eliquis for approximately 48 hours before being able to proceed forward with surgical intervention. Patient is currently nothing by mouth status in anticipation for possible surgical intervention today. Objective - Vital Signs Vital signs: Vital Signs Temp 98.0 F 08/11/16 07:00 Pulse 80 08/11/16 07:28 Resp 16 08/11/16 07:00 BP 98/54 08/11/16 07:00 Pulse Ox 98 08/11/16 07:14 Intake & Output 08/10/16 08/11/16 08/11/16 18:59 06:59 18:59 Intake Total 375 900 Output Total 600 120 Balance -225 780 Intake: IV 375 900 Sodium Chloride 0.9% 1, 375 900 000 ml @ 75 mls/hr IV . [id number] NICKOLAS Rx#:[id number] Output: Urine 600 120 Other: Voiding Method Urinal # Voids 2 1 - Exam Physical exam: Patient is sleepy but arousable and is able to answer questions appropriately Vital signs stable Good chest excursion with deep inspiration and expiration; patient on O2 nasal cannula Evidence of a well-healed incision over the midline of the sternum Evidence of 3 healing incisions along the right lateral rib cage Abdomen soft nontender Right lower extremity is internally rotated Pain with palpation of the right hip Significant pain with internal and external rotation of the right hip No pain with internal and external rotation of the left hip Neurovascularly intact bilateral lower extremities Dorsiflexion, plantarflexion, and extensor hallucis longus positive sustained bilaterally Calves are soft and supple; No signs or symptoms of DVT; No calf pain Some general swelling with mild bruising of the right knee; significant pain with palpation of the right knee Patient is unable to perform active range of motion of the right knee due to right hip fracture - Labs CBC & Chem 7: 08/11/16 06:26 08/11/16 06:26 Labs: Abnormal Lab Results - Last 24 Hours (Table) 08/10/16 08/11/16 08/11/16 Range/Units 12:50 06:26 06:26 RBC 3.22 L (4.30-5.90) m/uL Hgb 8.5 L (13.0-17.5) gm/dL Hct 29.0 L (39.0-53.0) % MCHC 29.5 L (31.0-37.0) g/dL RDW 17.1 H (11.5-15.5) % Lymphocytes # 0.9 L (1.0-4.8) k/uL Sodium 136 L (137-145) mmol/L Chloride 108 H (98-107) mmol/L BUN 25 H (9-20) mg/dL Creatinine 1.30 H (0.66-1.25) mg/dL Glucose 104 H (74-99) mg/dL Calcium 8.0 L (8.4-10.2) mg/dL Urine Protein Trace H (Negative) Urine Blood Moderate H (Negative) Ur Leukocyte Esterase Trace H (Negative) Urine RBC 13 H (0-5) /hpf Urine WBC Clumps Rare H (None) /hpf Urine Mucus Rare H (None) /hpf Microbiology - Last 24 Hours (Table) 08/10/16 12:50 Urine Culture - Preliminary Urine,Voided Assessment and Plan (1) Intertrochanteric fracture of right hip Status: Acute (2) History of heart bypass surgery Status: Acute (3) History of atrial fibrillation Status: Acute (4) History of lung surgery Status: Acute (5) Contusion of right knee Status: Acute (6) Fall Status: Acute Plan: Pertinent studies: CT of the right hip: Acute mildly impacted fracture of the intertrochanteric right femur in which the fracture line extends to the femoral head; no change in position as compared to previous x-ray study taken on 08/09/2016 Complete x-rays right hip: Acute intertrochanteric fracture of the right femur with no evidence of dislocation X-rays the right knee: No acute right knee fracture or dislocation seen; minor degenerative changes without significant joint space narrowing Assessment: Right intertrochanteric hip fracture extending into the femoral head Status post fall Recent right upper lobe surgery performed on 06/22/2016 History of heart bypass surgery History of atrial fibrillation Right knee pain Contusion of the right knee Plan: 1. Patient will continue to be on bed rest and nonweightbearing on the right lower extremity following right intertrochanteric hip fracture. Patient has been seen and examined by Dr. Gaston in medicine who states patient is currently stable and will be cleared for surgery with some added risk because of his multiple complex medical issues. Patient was previously taking Eliquis. This medicine has been stopped while here in the hospital. Must remain off this medication for least 48 hours prior to surgical intervention. Following his recent CT the right hip, we will plan to further review this imaging before deciding on proceeding forward with a definitive surgical intervention. He will continue to remain nothing by mouth status in anticipation for possible surgical intervention today. At this time he may continue to urinate with a bedside bottle. If he is having difficulty with urination, we will plan to place a Rivera catheter. We will continue pain control with oral and IV pain medications. We'll plan on hold the oral pain medications prior to surgical intervention. 2. Medicine to follow patient in consult for surgical clearance in anticipation for right hip nail fixation for right intertrochanteric hip fracture. 4. We will continue to follow patient closely Time with Patient: Less than 30
[2016-08-11] MEDS: CARVEDILOL 12.5 MG TAB PO SCH ×2 (10:52→20:15)
--- NOTE | 2016-08-11 12:42 | P.CRDCN ---
History of Present Illness Consult date: 08/11/16 History of present illness: This is a pleasant 75-year-old gentleman who sees Dr. CB Dunaway as an outpatient with a past medical history significant for chronic atrial fibrillation, CAD, hypertension, and dyslipidemia, who was admitted to the hospital after he fell and fractured his right hip. The patient did not lose his consciousness. He did not have any symptoms of chest pain or discomfort or difficulty breathing or heart racing or fluttering. Hemodynamically he continues to be in A. fib with relatively controlled heart rate. The patient was on anticoagulation with Eliquis which was stopped. From the cardiovascular standpoint of view, the patient can proceed with the surgery. I would continue the current medical treatment and continue holding the anticoagulation. We'll continue following up with him. I will obtain an echocardiogram Past Medical History Past Medical History: Atrial Fibrillation, Coronary Artery Disease (CAD), Heart Failure, COPD, CVA/TIA, Hyperlipidemia, Hypertension, Myocardial Infarction ([place]) , Sleep Apnea/CPAP/BIPAP Additional Past Medical History / Comment(s): blood transfusion/ANEMIA, STOPPED USING HIS CPAP MACHINE YEARS AGO, CONSTIPATION, SMALL SLIDING HIATAL HERNIA AND SMALL POLYP REMOVED.,HX MILD RENAL FAILURE. Last Myocardial Infarction Date:: HAD X2 LAST ONE 2002 History of Any Multi-Drug Resistant Organisms: None Reported Past Surgical History: Appendectomy, Coronary Bypass/CABG Additional Past Surgical History / Comment(s): TRIPLE BYPASS, COLONOSCOPY/EGD Additional Past Anesthesia/Blood Transfusion Reaction / Comment(s): CLAUSTERPHOBIA Past Psychological History: No Psychological Hx Reported Smoking Status: Former smoker Past Alcohol Use History: Occasional Past Drug Use History: None Reported - Past Family History Father Family Medical History: Cancer Additional Family Medical History / Comment(s): of pancreatic cancer Mother Family Medical History: Diabetes Mellitus Additional Family Medical History / Comment(s): AT AGE 90 WAS IN PRETTY GOOD HEALTH FROM OLD AGE Brother(s) Family Medical History: Diabetes Mellitus Additional Family Medical History / Comment(s): 2 BROTHERS HAVE DIABETES Medications and Allergies Home Medications Medication Instructions Recorded Confirmed Type Carvedilol [Coreg*] 12.5 mg PO AC-BID 07/13/13 08/09/16 History Isosorbide Mononitrate [Imdur] 30 mg PO BID 07/13/13 08/09/16 History Tiotropium 18 Mcg/Puff [Spiriva] 1 cap INHALATION RT-DAILY 07/13/13 08/09/16 History hydrALAZINE HCL 25 mg PO BID 07/13/13 08/09/16 History Albuterol Inhaler [Ventolin Hfa 1 - 2 puff INHALATION RT-Q6H PRN 10/08/14 History Inhaler] Budesonide-Formot 160-4.5 Mcg 2 puff INHALATION RT-BID 10/08/14 08/09/16 History [Symbicort 160-4.5 Mcg Inhaler] Folic Acid 1 mg PO DAILY 10/08/14 08/09/16 History Ipratropium-Albuterol Nebulize 3 ml INHALATION RT-QID PRN 10/08/14 08/09/16 History [Duoneb 0.5 mg-3 mg/3 ml Soln] Apixaban [Eliquis] 2.5 mg PO BID 03/19/16 08/09/16 History Ascorbic Acid [Vitamin C] 250 mg PO DAILY 03/19/16 08/09/16 History Aspirin EC [Ecotrin Low Dose] 81 mg PO DAILY 03/19/16 08/09/16 History Ferrous Sulfate [Feosol] 650 mg PO TID 03/19/16 08/09/16 History Furosemide [Lasix] 80 mg PO DAILY 03/19/16 08/09/16 History Nitroglycerin Sl Tabs [Nitrostat] 0.4 mg SUBLINGUAL Q5M PRN 03/19/16 08/09/16 History Polyethylene Glycol 3350 [Miralax] 17 gm PO DAILY 03/19/16 08/09/16 History Potassium Chloride ER [K-Dur 20] 20 meq PO QID 03/19/16 08/09/16 History Cyanocobalamin (Vitamin B-12) 1,000 mcg PO DAILY 08/09/16 08/09/16 History [Vitamin B-12] Sennosides [Senna] 8.6 mg PO DAILY PRN 08/09/16 08/09/16 History Simvastatin 40 mg PO HS 08/09/16 08/09/16 History Allergies Allergy/AdvReac Type Severity Reaction Status Date / Time No Known Allergies Allergy Verified 08/09/16 21:20 Physical Exam Vitals: Vital Signs Temp Pulse Pulse Pulse Resp BP Pulse Ox 05/30/17 12:12 82 08/11/16 11:59 82 08/11/16 07:28 80 08/11/16 07:14 86 98 08/11/16 07:00 98.0 F 78 16 98/54 98 08/11/16 00:28 98.1 F 81 16 107/53 98 08/10/16 21:51 79 104/61 08/10/16 20:00 18 08/10/16 19:50 72 08/10/16 19:40 69 97 98/60 96 08/10/16 18:58 98.3 F 83 18 108/53 95 08/10/16 15:03 80 08/10/16 15:00 98.2 F 79 18 100/63 99 08/10/16 14:55 80 Intake and Output 08/10/16 08/11/16 08/11/16 22:59 06:59 14:59 Intake Total 300 600 Output Total 720 Balance -420 600 Intake: IV 300 600 Sodium Chloride 0.9% 1, 300 600 000 ml @ 75 mls/hr IV . [id number] [facility] Rx#:[id number] Output: Urine 720 Other: Voiding Method Urinal # Voids 2 1 Weight 92.079 kg Patient Weight 08/12/16 06:59 Weight 92.079 kg - Constitutional General appearance: no acute distress - Respiratory Respiratory: bilateral: CTA - Cardiovascular Rhythm: irregularly irregular Heart sounds: normal: S1, S2 Results 08/11/16 06:26 08/11/16 06:26 CBC 08/11/16 Range/Units 06:26 WBC 7.6 (3.8-10.6) k/uL RBC 3.22 L (4.30-5.90) m/uL Hgb 8.5 L (13.0-17.5) gm/dL Hct 29.0 L (39.0-53.0) % Plt Count 196 (150-450) k/uL Comprehensive Metabolic Panel 08/11/16 Range/Units 06:26 Sodium 136 L (137-145) mmol/L Potassium 4.7 (3.5-5.1) mmol/L Chloride 108 H (98-107) mmol/L Carbon Dioxide 24 (22-30) mmol/L BUN 25 H (9-20) mg/dL Creatinine 1.30 H (0.66-1.25) mg/dL Glucose 104 H (74-99) mg/dL Calcium 8.0 L (8.4-10.2) mg/dL Current Medications Generic Name Dose Route Start Last Admin Trade Name Freq PRN Reason Stop Dose Admin Hydrocodone Bitart/Acetaminophen 1 each 08/10/16 09:53 [place] 5-325 PO Q6HR PRN Pain 4-6 Hydrocodone Bitart/Acetaminophen 2 each 08/10/16 09:58 08/10/16 19:10 [place] 5-325 PO 2 each Q6HR PRN Administration Pain 7-10 Alprazolam 0.25 mg 08/10/16 14:39 Xanax PO TID PRN Anxiety Atorvastatin Calcium 20 mg 08/10/16 21:00 08/10/16 22:04 Lipitor PO 20 mg HS NICKOLAS Administration Budesonide/Formoterol Fumarate 2 puff 08/10/16 20:00 08/11/16 07:11 Symbicort 160-4.5 Mcg Inhaler INHALATION 2 puff RT-BID NICKOLAS Administration Carvedilol 12.5 mg 08/10/16 07:30 08/11/16 10:52 Coreg PO 12.5 mg AC-BID NICKOLAS Administration Furosemide 80 mg 08/10/16 09:00 08/11/16 09:14 Lasix PO Not Given DAILY NICKOLAS Hydralazine HCl 25 mg 08/10/16 09:00 08/11/16 09:14 Apresoline PO Not Given BID NICKOLAS Hydromorphone HCl 0.5 mg 08/10/16 00:50 08/11/16 10:51 Dilaudid IVP 0.5 mg Q4HR PRN Administration Pain Sodium Chloride 1,000 mls @ 75 mls/hr 08/10/16 01:00 08/11/16 06:12 Saline 0.9% IV 75 mls/hr .[id number] NICKOLAS Administration Ipratropium Kiana 0.5 mg 08/10/16 16:00 08/11/16 11:58 Atrovent Nebulized INHALATION 0.5 mg RT-QID NICKOLAS Administration Isosorbide Mononitrate 30 mg 08/10/16 09:00 08/11/16 09:14 Imdur PO Not Given BID NICKOLAS Levalbuterol HCl 1.25 mg 08/10/16 20:00 08/11/16 11:59 Xopenex Nebulized (Conc) INHALATION 1.25 mg RT-Q6H NICKOLAS Administration Naloxone HCl 0.2 mg 08/09/16 23:04 Narcan IV Q2M PRN Opioid Reversal Nitroglycerin 0.4 mg 08/09/16 23:15 Nitrostat SUBLINGUAL Q5M PRN Chest Pain Ondansetron HCl 4 mg 08/09/16 23:04 Zofran IVP Q8HR PRN Nausea And Vomiting Pantoprazole Sodium 40 mg 08/11/16 07:30 08/11/16 09:14 Protonix PO Not Given AC-BRKFST [facility] Polyethylene Glycol 17 gm 08/10/16 09:00 08/11/16 09:14 Miralax PO Not Given DAILY [facility] Potassium Chloride 20 meq 08/10/16 09:00 08/11/16 09:14 K-Dur 20 PO Not Given QID [facility] Senna 8.6 mg 08/09/16 23:15 Senokot PO DAILY PRN Constipation Temazepam 15 mg 08/10/16 21:00 Restoril PO HS PRN Insomnia Tiotropium [place] 1 puff 08/10/16 08:00 08/11/16 07:11 Spiriva INHALATION 1 puff RT-DAILY NICKOLAS Administration Intake and Output 08/10/16 08/11/16 08/11/16 22:59 06:59 14:59 Intake Total 300 600 Output Total 720 Balance -420 600 Intake: IV 300 600 Sodium Chloride 0.9% 1, 300 600 000 ml @ 75 mls/hr IV . [id number] [facility] Rx#:[id number] Output: Urine 720 Other: Voiding Method Urinal # Voids 2 1 Weight 92.079 kg Patient Weight 08/12/16 06:59 Weight 92.079 kg 08/11/16 06:26 08/11/16 06:26 Assessment and Plan Plan: Assessment Status post fall and right hip fracture Chronic A. fib with controlled heart rate Multiple comorbid conditions Plan The patient can proceed with the surgery Continue following up with him
--- NOTE | 2016-08-11 14:37 | CDI ---
In responding to this query, please exercise your independent professional judgment. The [facility] Coding Staff and Clinical Documentation Specialists appreciate your assistance in clarifying documentation, maintaining compliance with coding guidelines, accurately documenting patients condition and capturing severity of illness. The fact that a question is asked does not imply that any particular answer is desired or expected. Communication forms are a method of clarifying documentation and are not made part of the Legal Health Record. Thank you in advance for your clarification. Last Revision, January 2015 Ann Marie Donohue [address] [place] [address] Documentation Clarification Form Date: 08/11/2016 2:29:00 PM From: Yanely Grier RN, CCDS Admit Date: 08/09/2016 11:12:00 PM Patient Name: Khanh Mahmood Visit Number: [id number] Dr. Beau Gaston A diagnosis of anemia lacks specificity to accurately reflect your patients severity of condition and clarification is needed. Patient history/risk factors: Recent right lower lobectomy for possible malignancy CKD stage 3 moderate protein calorie malnutrition Clinical Indicators: Hemoglobin: 9.8/8.5 Hematocrit: 31.3/29 Treatment: IVF @ 75 cc/hr In order to capture the severity of condition, please clarify the type of anemia and etiology if known: Acute blood loss anemia Acute on chronic blood loss anemia Chronic blood loss anemia Iron deficiency anemia Hemolytic anemia Drug induced anemia Anemia due to malignancy Nutritional anemia Anemia of chronic kidney disease Unable to determine Other, please specify Please document in your progress notes and discharge summary in order to capture severity of illness and risk of mortality. Include clinical findings that support your diagnosis. FYI: Press F11 to launch patient chart. Place X here if this finding has no clinical significance, is not applicable or if you are not able to provide any additional documentation. ELENA
[2016-08-11] MEDS ORDERED: IV FLUID CONTINUATION 1,000 ML IV ONE (15:40)
[2016-08-11] MEDS ORDERED: HYDROmorphone 1 MG/ML 1 ML SYRINGE IVP PRN ×2 (15:49→18:22)
[2016-08-11] MEDS ORDERED: LACTATED RINGERS 1,000 ML IV SCH (16:00)
[2016-08-11] MEDS ORDERED: MIDAZOLAM 2 MG/2 ML VIAL ONE (16:40)
[2016-08-11] MEDS ORDERED: KETAMINE 10 MG/ML 20 ML VIAL ONE (16:40)
[2016-08-11] MEDS ORDERED: diphenhydrAMINE 50 MG/ML 1 ML VIAL ONE (16:40)
[2016-08-11] MEDS ORDERED: fentaNYL (PF) 50 MCG/ML 2 ML AMP ONE (16:40)
[2016-08-11] MEDS ORDERED: SODIUM CHLORIDE 0.9% 50 ML with ceFAZolin 3,000 MG IV ONE ×2 (17:15)
[2016-08-11] MEDS ORDERED: ceFAZolin 3,000 MG in SODIUM CHLORIDE 0.9% IRRIGATIO 3,000 ML IRRIGATION ONE (17:31)
[2016-08-11] MEDS ORDERED: LACTATED RINGERS 1,000 ML IV ONE (17:38)
[2016-08-11] MEDS ORDERED: MAGNESIUM HYDROXIDE 2,400 MG/10 ML CUP PO PRN (18:22)
[2016-08-11] MEDS ORDERED: NALOXONE 0.4 MG/ML 1 ML VIAL IV PRN (18:22)
--- NOTE | 2016-08-11 18:31 | P.OP ---
Date of Procedure: 08/11/16 Preoperative Diagnosis: Right hip femoral intertrochanteric femur fracture with femoral neck extension, acute status post fall Postoperative Diagnosis: Same Procedure(s) Performed: Implants: Anesthesia: spinal Pathology: other (Proximal femur reaming sent to pathology) Condition: stable Disposition: PACU Indications for Procedure: Operative Findings: Description of Procedure: Preoperative diagnosis: Right Intertrochanteric femoral hip fracture with femoral neck extension, acute due to fall Postoperative diagnosis: Same Procedure: intertrochanteric hip screw placement Use of fluoroscopic guidance Closed reduction Surgeon: Dr. Alo Khan.: Sebastien Ferrara who is present that the entire the case persistence during positioning dissection exposure placement of hardware and closure Anesthesia: Spinal anesthesia Estimated blood loss: Approximately 100 mL Components implanted: Staci IM hip screw 130 short with 100 mm proximal lag screw and possible setscrew and distal 35 mm setscrew Disposition: To recovery room in good stable condition Operative indications The patient sustained a injury and suffered a hip fracture at the inter- trochanteric area of his femur which was minimally displaced and had a minimally displaced extension into the femoral neck. We were involved in the case in regard to his hip fracture. The patient has history of atrial fibrillation cardiac issues and was on eloquent which was held at the time of his admission After evaluation it was determined that they would be a candidate for hip closed reduction and internal fixation via surgical intervention with an intramedullary hip screw. This would give them the best chance of mobilization and ambulation. We discussed the range of treatment options from conservative to surgical. They elected proceed with surgical intervention. We answered their questions to the best of our ability healing which they can understand. We discussed with the patient and his family the fact that the injury to the possible femur is quite severe and carry significant morbidity area and we discussed the risks of the injury and the risks of surgical treatment and conservative treatment. We discussed the risks and, occasions including but not limited to the risk of bleeding risk and infection risk and need for further surgery risk of decreased loss of motion loss of function malunion nonunion hardware failure nerve damage decreased function decreased level of ambulation was all explained to them. They signed an informed consent. Operative summary After obtaining informed consent evaluation by anesthesia, preoperative evaluation and clearance for medical service, the patient was identified and prepped Rivera area and the surgical site was marked. There brought to the operating room where the given appropriate anesthesia by the anesthesia department in standard fashion without any complications. Once the anesthesia was established we were able to position the patient. The patient was placed on a fracture table with a well-padded perineal post. The operative side was placed in a foot stone stirrup which was well-padded well molded and placed in gentle in-line traction. The nonoperative leg was placed in a padded stirrup. C-arm was brought in and we performed a closed reduction technique at the hip. We are able to get good alignment good position of the intertrochanteric fracture with gentle reduction techniques and traction utilizing the fracture table. Once patient was well positioned lower extremity was prepped and draped in normal standard sterile fashion. An appropriate keystone protocol and timeout was completed and were able to proceed with surgery. He started point just proximal to the greater trochanter was established and a median incision approximately 2 inches in length approximately to the greater trochanter. I dissected down through the fascia and I was able to expose the tip of the greater trochanter. A sharp starting hole was established at the tip of the greater trochanter near the junction of the anterior and middle third. Positioning was confirmed with C-arm guidance. I was able to start the awl into the bone and then use a guidepin at the starting point establish down to the level of the lesser trochanter at the intramedullary space. I then used a starting reamer for the greater trochanter placed over the guidepin and reamed down appropriately under C-arm guidance. I was unable to place a guidepin into the intramedullary aspect of the femur and then reamed appropriately to the appropriate length. The positioning was confirmed on C-arm guidance. With the femur appropriately reamed I then chose the appropriate size intramedullary rick which was connected to the appropriate jig. The jig was checked for alignment. The area was copiously irrigated and suctioned dry and we're able place the rick at intramedullary space through the starting hole appropriately. It was seated down for appropriate position to align the leg pain into the femoral neck and head. A second incision was established at the site for the placement of the lag screw area and the guide was established at the lateral aspect of the femur and a guidepin was drilled into the femoral neck and head and near center center position. With this appropriate alignment and position where a reamer over the guidepin making sure not to penetrate the articular surface. The position was confirmed on C-arm guidance in AP and lateral positions. With this established we were able to place the appropriate size lag screw after measuring. Lag screw was placed into the femoral neck and head good alignment good position with excellent bony purchase. It was appropriately aligned and we placed a locking screw through the rick appropriately and checked that the position was established. With the area in good position able place a distal locking screw. We utilized the guide sleeve a separate incision was made at the skin. The guide sleeve was placed in the lateral aspect of the femur and the distal locking screw hole was established through the femur and distal locking hole of the intramedullary rick. The inferior lag screw was also placed and I was able get good compression on the leg screw at the fracture site with excellent alignment and position. I was able to drill through a separate sleeve for the distal locking screw. It was measured appropriately and a distal locking screw was placed in good alignment and good position with excellent bony purchase. The position was checked to make sure it was through the appropriate hole in the intramedullary rick. With this established we're able to remove the jig completely from the rick and final images were taken which showed excellent alignment and position of the hardware and the fracture. With the rick in place and the fracture stable, although the incision sites were copiously irrigated and suctioned dry. Good hemostasis was maintained. Deep fascial layers were closed with #1 Vicryl. Subcu tissue was closed with 2-0 Vicryl. Subcuticular tissues closed with 3-0 Vicryl. Was are cleaned and dried with dressed with Mastisol and Steri-Strips Telfa for a force and tape. Drapes were broken down, the hip was held in stable position with the post being removed safely once the positioning was stabilized. The patient was then transferred back to their hospital bed being careful to maintain the hip and C- spine alignment and airway. Once stable to patient was transferred back to the postanesthesia care unit to be readmitted for pain control and DVT prophylaxis medical management and monitoring and mobilization we will continue follow patient closely throughout their postoperative course.
--- NOTE | 2016-08-11 18:37 | XR ---
Fluoroscopy INDICATION: Pain FINDINGS: Fluoroscopy time: 30 seconds. Images obtained: 4. IMPRESSIONS: 1. Documentation of fluoroscopy.
--- NOTE | 2016-08-11 20:21 | PN ---
DATE OF SERVICE: 08/11/2016 This 75-year-old gentleman who was admitted with right femoral fracture is being closely monitored at this time. The patient had atrial fibrillation, also. The patient also had anemia, possibly anemia of chronic disease. The patient is being closely monitored. No chest pain. No palpitation. No fever. On exam, alert and oriented x2. Pulse 87, blood pressure 128/57, respiration 18, temperature 97 degrees, pulse ox 94% on 2 L. HEENT: Conjunctivae normal. Oral mucosa moist. NECK: No jugular venous distention. No carotid bruit. No lymph node enlargement. CARDIOVASCULAR SYSTEM: S1, S2 muffled. RESPIRATORY SYSTEM: Breath sounds diminished at the bases. No rhonchi. No crackles. ABDOMEN: Soft, non-tender. LEGS: Status post hip fracture. NERVOUS SYSTEM: No focal deficit. LABS: WBC 7.6, hemoglobin 8.4. Sodium 136. ASSESSMENT: 1. Acute right femoral fracture. 2. History of recent right lower lobectomy for possible malignancy. 3. Increased white count. 4. Anemia, normocytic; anemia of chronic disease and possibly dilutional as well. 5. Increased creatinine at 1.8, possibly chronic kidney disease, stage III. 6. Hypoalbuminemia with mild to moderate protein-calorie malnutrition. 7. Atrial fibrillation, paroxysmal, on Eliquis. 8. History of coronary artery disease, coronary artery bypass grafting. 9. History of congestive heart failure; ejection fraction unknown. 10. History of chronic obstructive pulmonary disease. 11. History of cerebrovascular accident, transient ischemic attack. 12. Hypertension, essential. 13. Myocardial infarction. 14. History of sleep apnea. 15. History of appendectomy. 16. Claustrophobia. 17. Remote history of nicotine dependence. 18. FULL CODE. RECOMMENDATIONS AND DISCUSSION: In this 75-year-old gentleman who presented with the multiple complex medical problems, as mentioned earlier, I would recommend continuing current medications. Continue symptomatic treatment. Recommend cardiology consultation. Otherwise, I will monitor the hemoglobin closely. The patient is cleared for surgery with some added risk. Otherwise, the patient is stable at this time. Continue to monitor. The ventricular rate is fairly controlled. Further recommendations to follow.
[2016-08-11] MEDS: ATORVASTATIN 20 MG TAB PO SCH (21:26)
[2016-08-11] MEDS: SENNOSIDES-DOCUSATE SODIUM 1 EACH TAB PO SCH (21:29)
[2016-08-11] MEDS: FERROUS SULFATE 325 MG TAB PO SCH (21:30)
[2016-08-11 22:21] LABS: Anisocytosis Slight; Basophils % (A) 0 %; CHCM 27.8; Eosinophils # (A) 0.2 k/uL (0-0.7); Eosinophils % (A) 1 %; HCT 32.9 % (39.0-53.0); HDW 2.62; HGB 9.3 gm/dL (13.0-17.5); Hypochromasia Marked; Luc # (Auto) 0.29; Luc % (Auto) 2; Lymphocytes # (A) 1.3 k/uL (1.0-4.8); Lymphocytes % (A) 10 %; MCH 26.5 pg (25.0-35.0); MCHC 28.3 g/dL (31.0-37.0); MCV 93.7 fL (80.0-100.0); Mean Platelet Volume 8.5; Monocytes # (A) 0.8 k/uL (0-1.0); Monocytes % (A) 6 %; Neutrophils # (A) 10.3 k/uL (1.3-7.7); Neutrophils % (A) 80 %; RBC 3.51 m/uL (4.30-5.90); RDW 16.9 % (11.5-15.5); WBC 12.8 k/uL (3.8-10.6); WBC (Perox) 12.58
[2016-08-12] MEDS: hydrALAZINE HCL 25 MG TAB PO SCH ×3 (01:17→10:47)
[2016-08-12] MEDS: ceFAZolin 3 GM in SODIUM CHLORIDE 0.9% 100 ML IVPB SCH ×2 (01:19→08:19)
[2016-08-12] MEDS: LEVALBUTEROL NEB (CONC) 1.25 MG/0.5 ML AMP INHALATION SCH ×5 (03:15→19:58)
[2016-08-12] MEDS: SYMBICORT 160-4.5 MCG INHALER INHALATION SCH ×2 (07:22→19:58)
[2016-08-12] MEDS: IPRATROPIUM 0.5 MG/2.5 ML NEBU INHALATION SCH ×4 (07:23→19:58)
--- NOTE | 2016-08-12 07:34 | FL ---
Fluoroscopy HISTORY: Right hip nailing 30 seconds fluoroscopy time supplied to the referring clinician. 4 intraoperative C-arm images docum ent the procedure. See dictated report from orthopedic surgery.
[2016-08-12] MEDS: HYDROcodone/APAP 5-325MG 1 EACH TAB PO PRN (08:16)
[2016-08-12] MEDS: FUROSEMIDE 40 MG TAB PO SCH (08:20)
[2016-08-12] MEDS: CARVEDILOL 12.5 MG TAB PO SCH (08:20)
[2016-08-12] MEDS: ASPIRIN 81 MG CHEW PO SCH ×2 (08:21→08:24)
[2016-08-12] MEDS: FOLIC ACID 1 MG TAB PO SCH (08:21)
[2016-08-12] MEDS: PANTOPRAZOLE 40 MG TABLET PO SCH (08:21)
[2016-08-12] MEDS: ASCORBIC ACID 500 MG TAB PO SCH (08:22)
[2016-08-12] MEDS: CYANOCOBALAMIN 500 MCG TAB PO SCH (08:24)
[2016-08-12] MEDS: FERROUS SULFATE 325 MG TAB PO SCH ×3 (08:25→21:26)
[2016-08-12] MEDS: ISOSORBIDE MONONITRATE ER 30 MG TAB.ER.24H PO SCH ×2 (08:25→10:48)
[2016-08-12] MEDS: POTASSIUM CHLORIDE ER 20 MEQ TAB.ER PO SCH ×3 (08:26→21:27)
[2016-08-12] MEDS: POLYETHYLENE GLYCOL 3350 17 GM POWD.PACK PO SCH (08:26)
[2016-08-12] MEDS: SODIUM CHLORIDE 0.9% 1,000 ML IV SCH (08:43)
--- NOTE | 2016-08-12 09:02 | P.PN ---
Subjective Principal diagnosis: Atrial fibrillation This is a pleasant 75-year-old gentleman who sees Dr. CB Dunaway as an outpatient with a past medical history significant for chronic atrial fibrillation, CAD, hypertension, and dyslipidemia, who was admitted to the hospital after he fell and fractured his right hip. The patient did not lose his consciousness. He did not have any symptoms of chest pain or discomfort or difficulty breathing or heart racing or fluttering. Hemodynamically he continues to be in A. fib with relatively controlled heart rate. The patient underwent right hip surgery yesterday which was uneventful. On follow-up with him today, he seems to be doing good and he is asymptomatic from the cardiovascular standpoint overview. He was restarted back on anticoagulation with Eliquis as well as aspirin. Objective - Vital Signs Vital signs: Vital Signs Temp 97.8 F 08/12/16 07:06 Pulse 100 08/12/16 07:37 Resp 16 08/12/16 07:06 BP 110/61 08/12/16 07:06 Pulse Ox 98 08/12/16 07:24 Intake & Output 08/11/16 08/12/16 08/12/16 18:59 06:59 18:59 Intake Total 926 275 Output Total 375 250 Balance 551 25 Weight 92.079 kg Intake: IV 926 275 Sodium Chloride 0.9% 1, 225 000 ml @ 75 mls/hr IV . [id number] [facility] Rx#:[id number] Output: Urine 300 250 Estimated Blood Loss 75 Other: Voiding Method Urinal Urinal - Constitutional General appearance: Present: no acute distress - Respiratory Respiratory: bilateral: diminished - Cardiovascular Rhythm: irregularly irregular - Labs CBC & Chem 7: 08/11/16 21:27 08/11/16 06:26 Labs: Abnormal Lab Results - Last 24 Hours (Table) 08/11/16 Range/Units 21:27 WBC 12.8 H (3.8-10.6) k/uL RBC 3.51 L (4.30-5.90) m/uL Hgb 9.3 L (13.0-17.5) gm/dL Hct 32.9 L (39.0-53.0) % MCHC 28.3 L (31.0-37.0) g/dL RDW 16.9 H (11.5-15.5) % Neutrophils # 10.3 H (1.3-7.7) k/uL Microbiology - Last 24 Hours (Table) 08/10/16 12:50 Urine Culture - Final Urine,Voided Assessment and Plan Plan: Assessment Status post fall and right hip fracture Chronic A. fib with controlled heart rate Multiple comorbid conditions Plan The patient underwent right hip surgery yesterday He is asymptomatic from a cardiovascular standpoint of view. He continues to be hemodynamically stable as well
--- NOTE | 2016-08-12 10:13 | ECHOF ---
Referral Reason:cad MEASUREMENTS -------- HEIGHT: 180.3 cm WEIGHT: 92.1 kg BP: 98/54 RVIDd: 3.4 cm (< 3.3) IVSd: 1.8 cm (0.6 - 1.1) LVIDd: 3.8 cm (3.9 - 5.3) LVPWd: 1.6 cm (0.6 - 1.1) IVSs: 1.6 cm LVIDs: 2.9 cm LVPWs: 1.5 cm LAESV Index (A-L): 24.22 ml/m Ao Diam: 3.1 cm (2.0 - 3.7) AV Cusp: 1.8 cm (1.5 - 2.6) LA Diam: 4.2 cm (2.7 - 3.8) MV EXCURSION: 17.007 mm (> 18.000) MV EF SLOPE: 104 mm/s (70 - 150) EPSS: 0.4 cm MV E Lino: 1.16 m/s MV DecT: 218 ms MV A Lino: 0.73 m/s MV E/A Ratio: 1.58 RAP: 5.00 mmHg RVSP: 38.87 mmHg FINDINGS -------- Sinus rhythm. This was a technically difficult study with suboptimal views. There is moderate concentric left ventricular hypertrophy. Overall left ventricular systolic function is mildly impaired with, an EF between 45 - 50 %. There is paradoxical/dysynergic septal motion consistent with right ventricular volume overload and/or elevated right ventricular end-diastolic pressure. Apical septum LV wall motion is hypokinetic. The right ventricle is mildly enlarged. Normal LA size by volume 22+/-6 ml/m2. The right atrium is normal in size. 1.5mg of Definity was utilized for enhancement of images Aortic valve is trileaflet and is mildly thickened. The mitral valve leaflets are mildly thickened. Mild mitral annular calcification present. Mild mitral regurgitation is present. Moderate tricuspid regurgitation present. There is mild pulmonary hypertension. The right ventricular systolic pressure, as measured by Doppler, is 38.87mmHg. Trace/mild (physiologic) pulmonic regurgitation. The aortic root size is normal. The pericardium is normal. CONCLUSIONS -------- 1. Sinus rhythm. 2. 1.5mg of Definity was utilized for enhancement of images 3. Aortic valve is trileaflet and is mildly thickened. 4. The mitral valve leaflets are mildly thickened. 5. Mild mitral annular calcification present. 6. Mild mitral regurgitation is present. 7. Moderate tricuspid regurgitation present. 8. There is mild pulmonary hypertension. 9. The right ventricular systolic pressure, as measured by Doppler, is 38.87mmHg. 10. Trace/mild (physiologic) pulmonic regurgitation. 11. The aortic root size is normal. 12. This was a technically difficult study with suboptimal views. 13. The pericardium is normal. 14. There is moderate concentric left ventricular hypertrophy. 15. Overall left ventricular systolic function is mildly impaired with, an EF between 45 - 50 %. 16. There is paradoxical/dysynergic septal motion consistent with right ventricular volume overload and/or elevated right ventricular end-diastolic pressure. 17. Apical septum LV wall motion is hypokinetic. 18. The right ventricle is mildly enlarged. 19. Normal LA size by volume 22+/-6 ml/m2. 20. The right atrium is normal in size. [employer]: Emily Montano RDCS
[2016-08-12] MEDS ORDERED: SODIUM CHLORIDE 0.9% 250 ML IV ONE (10:45)
--- NOTE | 2016-08-12 15:19 | P.PN ---
Subjective Principal diagnosis: Right intertrochanteric hip fracture extending into the right femoral head status post fall Patient is a very pleasant 75-year-old male who is seen and examined at the bedside for further evaluation for his right intertrochanteric hip fracture. He is status post right hip intertrochanteric nail fixation performed yesterday , 08/11/2069. He states he does continue to have some discomfort at the right hip but states his pain is better controlled as compared to yesterday. He is resting comfortably in a bedside chair. He has not had much of an appetite postsurgically. He does continue to eat and void without significant difficulty. He is not currently experiencing any abdominal pain. He was given 2 [place] earlier this morning for pain relief. At the time his systolic blood pressure dropped to approximately 75. Medicine and cardiology were notified. His blood pressure medication has since been adjusted. Patient currently has no new complaints. Objective - Vital Signs Vital signs: Vital Signs Temp 98.7 F 08/12/16 13:41 Pulse 95 08/12/16 13:41 Resp 16 08/12/16 13:41 BP 101/57 08/12/16 14:54 Pulse Ox 93 L 08/12/16 14:54 Intake & Output 08/11/16 08/12/16 08/12/16 18:59 06:59 18:59 Intake Total 926 275 250 Output Total 375 250 550 Balance 551 25 -300 Weight 92.079 kg Intake: IV 926 275 Sodium Chloride 0.9% 1, 225 000 ml @ 75 mls/hr IV . [id number] [facility] Rx#:[id number] Oral 250 Output: Urine 300 250 550 Estimated Blood Loss 75 Other: Voiding Method Urinal Urinal Urinal - Exam Physical Exam Intramedullary [place] for Intertrochanteric Fracture: Status post surgical day number 1 Patient is examined lying in bed Patient is awake and alert, and oriented 3 Vital signs stable Good chest excursion with deep inspiration and expiration; patient currently on O2 nasal cannula Abdomen soft nontender No signs or symptoms of DVT; no calf pain Lower extremity cuffs in place bilaterally Dressing of the right hip is clean, dry, and intact; no erythema, purulence, or signs of infection Full range of motion of ankles bilaterally Dorsiflexion, plantarflexion, and extensor hallucis longus positive sustained bilaterally Neurovascularly intact bilateral lower extremities Capillary refill less than 2 seconds bilateral lower extremities - Labs CBC & Chem 7: 08/11/16 21:27 08/11/16 06:26 Labs: Abnormal Lab Results - Last 24 Hours (Table) 08/11/16 Range/Units 21:27 WBC 12.8 H (3.8-10.6) k/uL RBC 3.51 L (4.30-5.90) m/uL Hgb 9.3 L (13.0-17.5) gm/dL Hct 32.9 L (39.0-53.0) % MCHC 28.3 L (31.0-37.0) g/dL RDW 16.9 H (11.5-15.5) % Neutrophils # 10.3 H (1.3-7.7) k/uL Microbiology - Last 24 Hours (Table) 08/10/16 12:50 Urine Culture - Final Urine,Voided Assessment and Plan (1) Intertrochanteric fracture of right hip Status: Acute (2) History of heart bypass surgery Status: Acute (3) History of atrial fibrillation Status: Acute (4) History of lung surgery Status: Acute (5) Contusion of right knee Status: Acute (6) Fall Status: Acute (7) Hypotension Status: Acute Plan: Assessment: Status post right hip reveals fixation for right intertrochanteric hip fracture with extension into the femoral neck Status post fall Hypotension Plan: 1. Patient to remain nonweightbearing on the right lower extremity; patient may work with physical therapy to increase mobility and ambulation 2. Continue pain control 3. Medicine to continue following the patient for his other medical issues; medicine to continue with anticoagulation therapy and monitoring his blood pressure 4. Patient will continue to be followed by cardiology 4. We'll continue to follow the patient. Patient will most likely need rehabilitation placement at the time of discharge. There's been some question whether he will be able to be discharged to a rehabilitation facility as nursing states he only has one day of insurance coverage left for the year at a rehabilitation facility following his recent lung surgery. 5. Patient can follow-up with Sebastien Dalal PA-C or at [facility] in 3 weeks following discharge Time with Patient: Less than 30
[2016-08-12] MEDS: CARVEDILOL 6.25 MG TAB PO SCH (18:40)
[2016-08-12] MEDS: SENNOSIDES-DOCUSATE SODIUM 1 EACH TAB PO SCH (21:26)
[2016-08-12] MEDS: APIXABAN 2.5 MG TABLET PO SCH (21:27)
[2016-08-12] MEDS: ATORVASTATIN 20 MG TAB PO SCH (21:27)
[2016-08-13] MEDS: SODIUM CHLORIDE 0.9% 1,000 ML IV SCH ×2 (01:27→16:39)
[2016-08-13] MEDS: LEVALBUTEROL NEB (CONC) 1.25 MG/0.5 ML AMP INHALATION SCH ×3 (02:34→11:20)
[2016-08-13] MEDS: HYDROcodone/APAP 5-325MG 1 EACH TAB PO PRN (02:46)
[2016-08-13] MEDS: SYMBICORT 160-4.5 MCG INHALER INHALATION SCH ×2 (08:05→20:53)
[2016-08-13] MEDS: IPRATROPIUM 0.5 MG/2.5 ML NEBU INHALATION SCH ×2 (08:05→11:20)
[2016-08-13] MEDS: CARVEDILOL 6.25 MG TAB PO SCH ×2 (08:14→16:39)
[2016-08-13] MEDS: ASCORBIC ACID 500 MG TAB PO SCH (08:15)
[2016-08-13] MEDS: CYANOCOBALAMIN 500 MCG TAB PO SCH (08:16)
[2016-08-13] MEDS: PANTOPRAZOLE 40 MG TABLET PO SCH (08:16)
[2016-08-13] MEDS: APIXABAN 2.5 MG TABLET PO SCH ×2 (08:16→23:12)
[2016-08-13] MEDS: ASPIRIN 81 MG CHEW PO SCH (08:16)
[2016-08-13] MEDS: FOLIC ACID 1 MG TAB PO SCH (08:17)
[2016-08-13] MEDS: FERROUS SULFATE 325 MG TAB PO SCH ×3 (08:17→23:12)
[2016-08-13] MEDS: POTASSIUM CHLORIDE ER 20 MEQ TAB.ER PO SCH ×4 (08:17→23:08)
[2016-08-13] MEDS: POLYETHYLENE GLYCOL 3350 17 GM POWD.PACK PO SCH (08:18)
--- NOTE | 2016-08-13 09:29 | P.PN ---
Subjective Principal diagnosis: Atrial fibrillation This is a pleasant 75-year-old gentleman who sees Dr. CB Dunaway as an outpatient with a past medical history significant for chronic atrial fibrillation, CAD, hypertension, and dyslipidemia, who was admitted to the hospital after he fell and fractured his right hip. The patient did not lose his consciousness. He did not have any symptoms of chest pain or discomfort or difficulty breathing or heart racing or fluttering. Hemodynamically he continues to be in A. fib with relatively controlled heart rate. The patient underwent right hip surgery yesterday which was uneventful. Yesterday he was slightly hypotensive. On follow-up with him today, he seems to be doing better and denies having any chest pain or discomfort. I recommended decreasing the dose of Coreg to 6.25 mg twice a day, I would stop the Imdur and hydralazine, and continue following up with him. Objective - Vital Signs Vital signs: Vital Signs Temp 98.2 F 08/13/16 07:13 Pulse 96 08/13/16 08:07 Resp 16 08/13/16 07:13 BP 117/58 08/13/16 07:13 Pulse Ox 96 08/13/16 08:07 Intake & Output 08/12/16 08/13/16 08/13/16 18:59 06:59 18:59 Intake Total 400 900 Output Total 550 300 Balance -150 600 Intake: Intake, IV Titration 900 Amount Sodium Chloride 0.9% 1, 900 000 ml @ 75 mls/hr IV . [id number] [facility] Rx#:[id number] Oral 400 Output: Urine 550 300 Other: Voiding Method Urinal - Constitutional General appearance: Present: no acute distress - Respiratory Respiratory: bilateral: diminished - Cardiovascular Rhythm: irregularly irregular - Labs CBC & Chem 7: 08/11/16 21:27 08/11/16 06:26 Assessment and Plan Plan: Assessment Status post fall and right hip fracture Chronic A. fib with controlled heart rate Multiple comorbid conditions Plan Decrease the dose of Coreg DC the Imdur DC the hydralazine Follow-up with the patient
--- NOTE | 2016-08-13 10:07 | P.PN ---
Progress Note - Text Postoperative day #2 Patient is seen and examined today at bedside. The patient has some pain around the surgical site as expected. Pain is being controlled with medication. His mobility has been limited. He remains nonweightbearing on the right lower extremity. He denies chest pain or shortness breath. He was able have a bowel movement this morning Physical Exam Afebrile with stable vital signs Abdomen is soft nontender. Chest has good excursion deep and space expiration The incision site is clean dry and intact. No erythema there is no purulence.There is some swelling around his thigh but his thighs soft as is his calf. There is no active drainage. Extremities have not had neurologic change from prior to surgery. He has sustained dorsal flexion plantarflexion and extensor hallucis longus intact. Calves and thighs were soft nontender without evidence of DVT. Assessment/Plan Postoperative day #2 status post right hip intramedullary hip screw for his intertrochanteric femur fracture with femoral neck extension. Patient is progressing as expected from the surgery. He needs to remain nonweightbearing on the right lower extremity to allow appropriate healing We will continue to increase the patient's mobilization with therapy. He is continuing management with the medical service and cardiology as well. From an orthopedic standpoint is okay for him to discharge to long-term facility. He is making arrangements for that with case management he is hoping to go to [facility]. We will continue pain control with oral or IV medications. We'll continue to follow patient closely.
--- NOTE | 2016-08-13 17:37 | P.CONS ---
History of Present Illness - Chief Complaint Walking difficulty due to right hip fracture - History of Present Illness Admitted with history of fall and right hip pain. CT demonstrated impacted intertrochanteric fracture right femur. Chest x-ray fibrotic changes. Seen by Dr. Yao taylor for surgery. Underwent IT screw placement august 11. Started therapy. PT reports two-person assistance for functional mobility. Fatigues quickly. OT reports minimal assistance for upper dressing and total for lower dressing. Maximal assistance for bathing. Total assistance to person for toileting. Previous functional history, as elicited from patient: 75-year-old right-handed white male who is lives in one form with and son. Son works. Patient retired. Describes independent with cooking, driving, sponge bath. does the laundry. Regular doctors Fernando DEWITT. He sees local billing representative, Dr. CB Dunaway. Family history of cancer in father. Review of Systems Review of systems: ENT: Denies sneezes or discharge. Eyes: Denies discharge or photophobia. Cardiac: Denies chest pain or palpitation. Pulmonary: Denies cough or shortness of breath. Gastrointestinal: Denies nausea, emesis, constipation, diarrhea. Genitourinary: Denies discharge or frequency. Musculoskeletal: Intermittent discomfort right hip and leg currently controlled. Neurologic: Denies motor or sensory change. But appears to be generally weak. Endocrine: Denies shakes or sweats. Oncology: Denies cancers. Dermatologic: Denies rash, itching, pruritus. ALLERGY/immunology: Denies sneezes, rashes. Past Medical History Past Medical History: Atrial Fibrillation, Coronary Artery Disease (CAD), Heart Failure, COPD, CVA/TIA, Hyperlipidemia, Hypertension, Myocardial Infarction ([place]) , Sleep Apnea/CPAP/BIPAP Additional Past Medical History / Comment(s): blood transfusion/ANEMIA, STOPPED USING HIS CPAP MACHINE YEARS AGO, CONSTIPATION, SMALL SLIDING HIATAL HERNIA AND SMALL POLYP REMOVED.,HX MILD RENAL FAILURE. Last Myocardial Infarction Date:: HAD X2 LAST ONE 2002 History of Any Multi-Drug Resistant Organisms: None Reported Past Surgical History: Appendectomy, Coronary Bypass/CABG Additional Past Surgical History / Comment(s): TRIPLE BYPASS, COLONOSCOPY/EGD Additional Past Anesthesia/Blood Transfusion Reaction / Comm: CLAUSTERPHOBIA Past Psychological History: No Psychological Hx Reported Smoking Status: Former smoker Past Alcohol Use History: Occasional Past Drug Use History: None Reported - Past Family History Father Family Medical History: Cancer Additional Family Medical History / Comment(s): of pancreatic cancer Mother Family Medical History: Diabetes Mellitus Additional Family Medical History / Comment(s): AT AGE 90 WAS IN PRETTY GOOD HEALTH FROM OLD AGE Brother(s) Family Medical History: Diabetes Mellitus Additional Family Medical History / Comment(s): 2 BROTHERS HAVE DIABETES Medications and Allergies Home Medications Medication Instructions Recorded Confirmed Type Carvedilol [Coreg*] 12.5 mg PO AC-BID 07/13/13 08/09/16 History Isosorbide Mononitrate [Imdur] 30 mg PO BID 07/13/13 08/09/16 History Tiotropium 18 Mcg/Puff [Spiriva] 1 cap INHALATION RT-DAILY 07/13/13 08/09/16 History hydrALAZINE HCL 25 mg PO BID 07/13/13 08/09/16 History Albuterol Inhaler [Ventolin Hfa 1 - 2 puff INHALATION RT-Q6H PRN 10/08/14 History Inhaler] Budesonide-Formot 160-4.5 Mcg 2 puff INHALATION RT-BID 10/08/14 08/09/16 History [Symbicort 160-4.5 Mcg Inhaler] Folic Acid 1 mg PO DAILY 10/08/14 08/09/16 History Ipratropium-Albuterol Nebulize 3 ml INHALATION RT-QID PRN 10/08/14 08/09/16 History [Duoneb 0.5 mg-3 mg/3 ml Soln] Apixaban [Eliquis] 2.5 mg PO BID 03/19/16 08/09/16 History Ascorbic Acid [Vitamin C] 250 mg PO DAILY 03/19/16 08/09/16 History Aspirin EC [Ecotrin Low Dose] 81 mg PO DAILY 03/19/16 08/09/16 History Ferrous Sulfate [Feosol] 650 mg PO TID 03/19/16 08/09/16 History Furosemide [Lasix] 80 mg PO DAILY 03/19/16 08/09/16 History Nitroglycerin Sl Tabs [Nitrostat] 0.4 mg SUBLINGUAL Q5M PRN 03/19/16 08/09/16 History Polyethylene Glycol 3350 [Miralax] 17 gm PO DAILY 03/19/16 08/09/16 History Potassium Chloride ER [K-Dur 20] 20 meq PO QID 03/19/16 08/09/16 History Cyanocobalamin (Vitamin B-12) 1,000 mcg PO DAILY 08/09/16 08/09/16 History [Vitamin B-12] Sennosides [Senna] 8.6 mg PO DAILY PRN 08/09/16 08/09/16 History Simvastatin 40 mg PO HS 08/09/16 08/09/16 History Allergies Allergy/AdvReac Type Severity Reaction Status Date / Time No Known Allergies Allergy Verified 08/09/16 21:20 Physical Exam Vitals: Vital Signs Temp Pulse Pulse Pulse Resp BP Pulse Ox 08/13/16 16:00 68 70 16 08/13/16 14:23 97.6 F 68 16 147/83 95 08/13/16 11:29 80 08/13/16 11:21 80 08/13/16 08:07 96 96 08/13/16 08:00 72 70 16 08/13/16 07:13 98.2 F 72 16 117/58 98 08/13/16 01:00 96.6 F L 70 16 122/55 98 08/12/16 20:13 92 08/12/16 19:58 90 08/12/16 19:55 97.9 F 84 20 100/50 98 Intake and Output 08/13/16 08/13/16 08/13/16 06:59 14:59 22:59 Intake Total 900 Output Total 300 250 Balance 600 -250 Intake: Intake, IV Titration 900 Amount Sodium Chloride 0.9% 1, 900 000 ml @ 75 mls/hr IV . [id number] [facility] Rx#:[id number] Output: Urine 300 250 Other: Voiding Method Urinal Urinal Weight 92.079 kg Patient Weight 08/14/16 06:59 Weight 92.079 kg Skin: Shiny, atrophic, turgor. General: Overweight to obese and comfortable appearance. Head: Normocephalic, atraumatic. Eyes: Symmetric. Pupils equal round. Ears: Symmetric. Hearing within normal limits. Mouth: Clear. Neck: Supple. Carotid without bruit. Cardiac: Regular rate and rhythm. Lungs: Clear anteriorly and posteriorly. Abdomen: Soft active nontender. Extremities: Normal tone. At least 1+ edema forelegs and feet. Wearing soft boots. Neurological: Mental status: Alert, cooperative, pleasant. Cranial nerves: Symmetric facial tone and trapezius. Motor: At best antigravity strength in arms and poor movement in legs. Does actively moves left ankle. Sensation: Intact throughout. DTRs: Symmetric and equal throughout. Mobility: Did not attempt to sit up on my own is obviously requires two-person assist. Results CBC & Chem 7: 08/11/16 21:27 08/11/16 06:26 Assessment and Plan Plan: Impression: 1. Walking difficulty. 2. Right hip IT fracture status post IT nail, 08/11. 3. Right knee contusion. 4. Chronic active fibrillation. 5. Hypertension. 6. Cardiac disease with History of coronary bypass and [place]. 7. Distal edema. 8. History of stroke. 9. COPD. 10. History of sleep apnea. Comments and plan: At this time PT and OT are ongoing. Patient currently multiple person assist for care. Currently fatigues as well. At this time, subacute placement appears be appropriate for a slower paced program.
[2016-08-13 18:09] LABS: Anisocytosis Slight; Basophils % (A) 0 %; CH 26.6; CHCM 31.2; Eosinophils # (A) 0.2 k/uL (0-0.7); Eosinophils % (A) 2 %; HCT 25.1 % (39.0-53.0); HDW 2.98; Hypochromasia Moderate; Luc # (Auto) 0.37; Luc % (Auto) 4; Lymphocytes # (A) 1.1 k/uL (1.0-4.8); Lymphocytes % (A) 13 %; MCH 26.7 pg (25.0-35.0); MCHC 31.2 g/dL (31.0-37.0); Mean Platelet Volume 8.8; Monocytes # (A) 0.8 k/uL (0-1.0); Monocytes % (A) 10 %; Neutrophils # (A) 6.3 k/uL (1.3-7.7); Neutrophils % (A) 72 %; RBC 2.93 m/uL (4.30-5.90); RDW 17.1 % (11.5-15.5); WBC 8.7 k/uL (3.8-10.6); WBC (Perox) 8.88
[2016-08-13 18:13] LABS: HGB 7.8 gm/dL (13.0-17.5); MCV 85.5 fL (80.0-100.0)
[2016-08-13 18:25] LABS: Magnesium 2.2 mg/dL (1.6-2.3); Potassium 5.5 mmol/L (3.5-5.1)
[2016-08-13] MEDS: IPRATROPIUM-ALBUTEROL 3 ML NEB INHALATION SCH (20:53)
[2016-08-13] MEDS ORDERED: SODIUM POLYSTYRENE SULFONATE 15 GM/60 ML BOTTLE PO ONE (21:27)
[2016-08-13] MEDS: ATORVASTATIN 20 MG TAB PO SCH (23:12)
[2016-08-14] MEDS: SENNOSIDES-DOCUSATE SODIUM 1 EACH TAB PO SCH (00:52)
[2016-08-14] MEDS: IPRATROPIUM-ALBUTEROL 3 ML NEB INHALATION SCH ×3 (02:28→15:05)
[2016-08-14] MEDS: HYDROcodone/APAP 5-325MG 1 EACH TAB PO PRN (06:11)
[2016-08-14] MEDS: SODIUM CHLORIDE 0.9% 1,000 ML IV SCH (06:15)
[2016-08-14] MEDS: SYMBICORT 160-4.5 MCG INHALER INHALATION SCH (07:29)
[2016-08-14 07:53] LABS: Anisocytosis Slight; Basophils % (A) 0 %; CH 26.1; CHCM 29.6; Eosinophils # (A) 0.1 k/uL (0-0.7); Eosinophils % (A) 2 %; HCT 23.6 % (39.0-53.0); HDW 2.92; HGB 7.1 gm/dL (13.0-17.5); Hypochromasia Marked; Luc # (Auto) 0.31; Luc % (Auto) 4; Lymphocytes % (A) 13 %; MCH 26.7 pg (25.0-35.0); MCHC 30.1 g/dL (31.0-37.0); MCV 88.6 fL (80.0-100.0); Mean Platelet Volume 9.4; Monocytes # (A) 0.6 k/uL (0-1.0); Monocytes % (A) 8 %; Neutrophils # (A) 5.5 k/uL (1.3-7.7); Neutrophils % (A) 73 %; RBC 2.67 m/uL (4.30-5.90); RDW 17.3 % (11.5-15.5); WBC 7.6 k/uL (3.8-10.6); WBC (Perox) 8.01
[2016-08-14 07:56] LABS: Anion Gap 5 mmol/L; Blood Urea Nitrogen 34 mg/dL (9-20); Calcium 7.8 mg/dL (8.4-10.2); Carbon Dioxide 20 mmol/L (22-30); Chloride 112 mmol/L (98-107); Glucose 98 mg/dL (74-99); Magnesium 2.1 mg/dL (1.6-2.3); Non-African American GFR(MDRD) >60 (>60 ml/min/1.73 sqM); Potassium 4.8 mmol/L (3.5-5.1); Sodium 137 mmol/L (137-145)
[2016-08-14] MEDS: CARVEDILOL 6.25 MG TAB PO SCH (08:10)
[2016-08-14] MEDS: APIXABAN 2.5 MG TABLET PO SCH (08:11)
[2016-08-14] MEDS: PANTOPRAZOLE 40 MG TABLET PO SCH (08:11)
[2016-08-14] MEDS: ASPIRIN 81 MG CHEW PO SCH (08:11)
[2016-08-14] MEDS: CYANOCOBALAMIN 500 MCG TAB PO SCH (08:11)
[2016-08-14] MEDS: FERROUS SULFATE 325 MG TAB PO SCH (08:12)
[2016-08-14] MEDS: FOLIC ACID 1 MG TAB PO SCH (08:12)
[2016-08-14] MEDS: ASCORBIC ACID 500 MG TAB PO SCH (08:12)
[2016-08-14] MEDS: POLYETHYLENE GLYCOL 3350 17 GM POWD.PACK PO SCH (08:13)
--- NOTE | 2016-08-14 09:07 | P.DS ---
Providers Date of admission: 08/09/16 23:12 Expected date of discharge: 08/14/16 Attending physician: Jalil Prajapati Consults: 08/09/16 23:04 Consult Physician Stat Consulting Provider: Beau Gaston Consult Reason/Comments: Medical clearance for right hip surgery Do you want consulting provider notified?: Yes 08/11/16 10:57 Consult Physician Routine Consulting Provider: Augustine Samayoa Consult Reason/Comments: Afib Do you want consulting provider notified?: Yes 08/13/16 12:32 Consult Physician Routine Consulting Provider: Samuel Travis Consult Reason/Comments: Acute rehab eval Do you want consulting provider notified?: Yes Primary care physician: Nasim Thacker - Discharge Diagnosis(es) (1) Intertrochanteric fracture of right hip Current Visit: Yes Status: Acute (2) History of heart bypass surgery Current Visit: Yes Status: Acute (3) History of atrial fibrillation Current Visit: Yes Status: Acute (4) History of lung surgery Current Visit: Yes Status: Acute (5) Contusion of right knee Current Visit: Yes Status: Acute (6) Fall Current Visit: Yes Status: Acute (7) Hypotension Current Visit: Yes Status: Acute Hospital Course: This is a pleasant 75-year-old male who presented with right intertrochanteric hip fracture with extension into the femoral neck status post fall. He admitted for right hip intramedullary nail fixation for right intertrochanteric hip fracture. The patient tolerated the procedure well and did well postoperatively. He did have some difficulty with hypotension postsurgically. He continues to be seen by medicine and cardiology. His medications have been adjusted and his hypotension has improved. He states his pain has been well- controlled. He is remain nonweightbearing on the right lower extremity. He was seen and examined yesterday by Dr. Travis for rehab placement. This seems to have been approved. Patient will most [facility] be [facility] to [facility]. Condition on day of discharge stable. Patient was cleared preoperatively for surgery by Dr. Gaston. Patient currently denies any nausea, vomiting, fever, or chills. Patient is eating and voiding freely without difficulty. He was able to have a bowel movement yesterday. He'll be clear for discharge once cleared by medicine and cardiology. We'll plan for medicine to complete the patient's med rec prior to discharge to rehab. If patient's incision sites over the right hip continue to remain clean, dry, and intact with the next 72 hours, patient may shower without a dressing at that time. He will remain nonweightbearing on the right lower extremity. Patient will be given a prescription for [place] 5 mg/325 mg 1 tablet every 6 hours as needed for pain. Anticoagulation therapy will continue to be monitored and controlled by medicine and cardiology. Patient currently on Eliquis. Patient has a history of atrial fibrillation and previous CABG. Patient also has a history of recent right upper lobe lung surgery performed on 07/02/2016. Physical Exam Intramedullary [place] for Intertrochanteric Fracture: Status post surgical day number 3 Patient is examined lying in bed Patient is awake and alert, and oriented 3 Vital signs stable Good chest excursion with deep inspiration and expiration; patient currently on O2 nasal cannula Abdomen soft nontender No signs or symptoms of DVT; no calf pain Lower extremity cuffs in place bilaterally; abductor pillow intact Dressing of the right hip is clean, dry, and intact; no erythema, purulence, or signs of infection Full range of motion of ankles bilaterally Dorsiflexion, plantarflexion, and extensor hallucis longus positive sustained bilaterally Neurovascularly intact bilateral lower extremities Capillary refill less than 2 seconds bilateral lower extremities Procedures: Right intramedullary nail fixation for right intertrochanteric hip fracture Patient Condition at Discharge: Stable Plan - Discharge Summary New Discharge Prescriptions: New HYDROcodone/APAP 5-325MG [[place] 5] 1 each PO Q6HR PRN #90 tab PRN Reason: Pain No Action Tiotropium 18 Mcg/Puff [Spiriva] 1 cap INHALATION RT-DAILY hydrALAZINE HCL 25 mg PO BID Isosorbide Mononitrate [Imdur] 30 mg PO BID Carvedilol [Coreg*] 12.5 mg PO AC-BID Folic Acid 1 mg PO DAILY Albuterol Inhaler [Ventolin Hfa Inhaler] 1 - 2 puff INHALATION RT-Q6H PRN PRN Reason: Shortness Of Breath Ipratropium-Albuterol Nebulize [Duoneb 0.5 mg-3 mg/3 ml Soln] 3 ml INHALATION RT-QID PRN PRN Reason: Shortness Of Breath Budesonide-Formot 160-4.5 Mcg [Symbicort 160-4.5 Mcg Inhaler] 2 puff INHALATION RT-BID Aspirin EC [Ecotrin Low Dose] 81 mg PO DAILY Furosemide [Lasix] 80 mg PO DAILY Polyethylene Glycol 3350 [Miralax] 17 gm PO DAILY Nitroglycerin Sl Tabs [Nitrostat] 0.4 mg SUBLINGUAL Q5M PRN PRN Reason: Chest Pain Ferrous Sulfate [Feosol] 650 mg PO TID Ascorbic Acid [Vitamin C] 250 mg PO DAILY Apixaban [Eliquis] 2.5 mg PO BID Potassium Chloride ER [K-Dur 20] 20 meq PO QID Simvastatin 40 mg PO HS Cyanocobalamin (Vitamin B-12) [Vitamin B-12] 1,000 mcg PO DAILY Sennosides [Senna] 8.6 mg PO DAILY PRN PRN Reason: Constipation Discharge Medication List Carvedilol [Coreg*] 12.5 mg PO AC-BID 07/13/13 [History] Isosorbide Mononitrate [Imdur] 30 mg PO BID 07/13/13 [History] Tiotropium 18 Mcg/Puff [Spiriva] 1 cap INHALATION RT-DAILY 07/13/13 [History] hydrALAZINE HCL 25 mg PO BID 07/13/13 [History] Albuterol Inhaler [Ventolin Hfa Inhaler] 1 - 2 puff INHALATION RT-Q6H PRN [History] Budesonide-Formot 160-4.5 Mcg [Symbicort 160-4.5 Mcg Inhaler] 2 puff INHALATION RT-BID 10/08/14 [History] Folic Acid 1 mg PO DAILY 10/08/14 [History] Ipratropium-Albuterol Nebulize [Duoneb 0.5 mg-3 mg/3 ml Soln] 3 ml INHALATION RT -QID PRN 10/08/14 [History] Apixaban [Eliquis] 2.5 mg PO BID 03/19/16 [History] Ascorbic Acid [Vitamin C] 250 mg PO DAILY 03/19/16 [History] Aspirin EC [Ecotrin Low Dose] 81 mg PO DAILY 03/19/16 [History] Ferrous Sulfate [Feosol] 650 mg PO TID 03/19/16 [History] Furosemide [Lasix] 80 mg PO DAILY 03/19/16 [History] Nitroglycerin Sl Tabs [Nitrostat] 0.4 mg SUBLINGUAL Q5M PRN 03/19/16 [History] Polyethylene Glycol 3350 [Miralax] 17 gm PO DAILY 03/19/16 [History] Potassium Chloride ER [K-Dur 20] 20 meq PO QID 03/19/16 [History] Cyanocobalamin (Vitamin B-12) [Vitamin B-12] 1,000 mcg PO DAILY 08/09/16 [ History] Sennosides [Senna] 8.6 mg PO DAILY PRN 08/09/16 [History] Simvastatin 40 mg PO HS 08/09/16 [History] HYDROcodone/APAP 5-325MG [[place] 5] 1 each PO Q6HR PRN #90 tab 08/14/16 [Rx] Follow up Appointment(s)/Referral(s): Sebastien Dalal, NAVIN [PHYSICIAN ENGINEERING PROGRAMMER] - 2 Weeks (Patient may follow-up with Sebastien Dalal PA-C or Dr. Jarrod Prajapati at [facility] in 2-3 weeks following discharge. ) Nasim Thacker, [Primary Care Provider] - 1-2 days Activity/Diet/Wound Care/Special Instructions: 1. Remain nonweightbearing on right lower extremity 2. Keep dressing over the right hip clean, dry, intact 3. Apply ice over the incision site as needed for comfort 4. Do not soak in tub 5. If incisions over the right hip remain clean, dry, and intact, patient may shower in 72 hours without dressing over the incisions at that time. Discharge Disposition: TRANSFER TO SNF/ECF
--- NOTE | 2016-08-14 12:59 | P.PN ---
Progress Note - Text This is a pleasant 75-year-old gentleman with chronic atrial fibrillation, CAD, hypertension, and dyslipidemia, who was admitted to the hospital after he fell and fractured his right hip. The patient did not lose his consciousness. He did not have any symptoms of chest pain or discomfort or difficulty breathing or heart racing or fluttering. Hemodynamically he continues to be in A. fib with relatively controlled heart rate. The patient underwent right hip surgery yesterday which was uneventful. On follow-up with him today, he seems to be doing better and denies having any chest pain or discomfort. From the cardiovascular standpoint of view, the patient can be discharged into an extended-care facility for rehab.
[2016-08-14 14:02] VITALS: BP 124/75; RESP 15; TEMP 97.5
[2016-08-14 15:10] VITALS: PULSE 84
--- NOTE | 2016-08-14 20:22 | PN ---
This patient is a 75-year-old admitted with right femoral fracture. Patient was evaluated by Dr. Gaston from medicine perspective. Patient is otherwise clinically doing well; does have a history of atrial fibrillation, minimally depressed ejection fraction. Patient is clinically fairly stable to be discharged to subacute rehabilitation today. I did review the medication reconciliation and changed it accordingly. Patient's hemoglobin is 7.1. Patient is on 2 L of oxygen at this point of time. REVIEW OF SYSTEMS: CARDIOVASCULAR: No chest pain, no orthopnea, no PND, no palpitations. PULMONARY: Denied any shortness of breath. No cough or hemoptysis. GASTROINTESTINAL: No diarrhea, nausea or vomiting. No abdominal pain. Normoactive bowel sounds. NEUROLOGIC: No headaches, no weakness, no numbness. Medications were reviewed. Medication reconciliation was reviewed as well. Appropriate changes were made. PHYSICAL EXAMINATION: VITAL SIGNS: Temperature 97.5, pulse of 84, respiratory rate of 15, blood pressure 124/75. Saturating at 100% on 3 L of oxygen by nasal cannula, which we can cut down. GENERAL: The patient is alert and oriented x3, not in any acute distress. Well developed, well nourished. HEENT: Pupils are round and equally reacting to light. EOMI. No scleral icterus. No conjunctival pallor. Normocephalic, atraumatic. No pharyngeal erythema. No thyromegaly. CARDIOVASCULAR: S1 and S2 present. No murmurs, rubs, or gallops. PULMONARY: Chest is clear to auscultation, no wheezing or crackles. ABDOMEN: Soft, nontender, nondistended, normoactive bowel sounds. No palpable organomegaly. MUSCULOSKELETAL: No joint swelling or deformity. EXTREMITIES: No cyanosis, clubbing, or pedal edema. NEUROLOGICAL: Gross neurological examination did not reveal any focal deficits. SKIN: No rashes. FINAL DIAGNOSES: 1. Right femoral fracture, status post surgical correction. Management as per primary service. Patient is on Eliquis for atrial fibrillation, anticoagulation. 2. Anemia; anemia of chronic disease. 3. Chronic kidney disease, stage II, secondary to hypertensive nephrosclerosis. 4. Paroxysmal atrial fibrillation, rate controlled. 5. Coronary artery disease. 6. Congestive heart failure. Minimally decreased ejection fraction. Not in acute exacerbation. Patient is being discharged on 80 mg of Lasix daily. 7. Hypertension. 8. Myocardial infarction. 9. Sleep apnea. Patient is okay to be discharged from a medical perspective. Thank you for letting me participate in this patient's care. Will sign off at this point of time.
== END 2016-08-14 15:43 | DRG 481 ==
LOC: EC 21:12 → 3SUR 23:12
PROVIDERS: ADMIT Orthopaedic Surgery Orthopaedic Surgery of the Spine; ATTEND Orthopaedic Surgery Orthopaedic Surgery of the Spine
PROC: 0QS606Z Reposition Right Upper Femur with Intramedullary Internal Fixation Device, Open Approach (ICD-10-PCS; principal; 2016-08-11 07:30)
DX: S72.141A Displaced intertrochanteric fracture of right femur, initial encounter for closed fracture (principal); E44.0 Moderate protein-calorie malnutrition; I95.9 Hypotension, unspecified; I13.0 Hypertensive heart and chronic kidney disease with heart failure and stage 1 through stage 4 chronic kidney disease, or unspecified chronic kidney disease; E88.09 Other disorders of plasma-protein metabolism, not elsewhere classified; J44.9 Chronic obstructive pulmonary disease, unspecified; I50.9 Heart failure, unspecified; I48.0 Paroxysmal atrial fibrillation; I48.2 Chronic atrial fibrillation; D63.8 Anemia in other chronic diseases classified elsewhere; S80.01XA Contusion of right knee, initial encounter; N18.3 Chronic kidney disease, stage 3 (moderate); I25.2 Old myocardial infarction; I25.10 Atherosclerotic heart disease of native coronary artery without angina pectoris; E78.5 Hyperlipidemia, unspecified; T50.905A Adverse effect of unspecified drugs, medicaments and biological substances, initial encounter; D72.829 Elevated white blood cell count, unspecified; K59.00 Constipation, unspecified; G47.30 Sleep apnea, unspecified; F40.240 Claustrophobia; K44.9 Diaphragmatic hernia without obstruction or gangrene; R26.2 Difficulty in walking, not elsewhere classified; Z79.01 Long term (current) use of anticoagulants; Z83.3 Family history of diabetes mellitus; Z80.0 Family history of malignant neoplasm of digestive organs; Z86.010 Personal history of colon polyps; Z85.118 Personal history of other malignant neoplasm of bronchus and lung; Z90.2 Acquired absence of lung [part of]; Z90.49 Acquired absence of other specified parts of digestive tract; Z95.1 Presence of aortocoronary bypass graft; Z87.891 Personal history of nicotine dependence; Z79.51 Long term (current) use of inhaled steroids; Z79.899 Other long term (current) drug therapy; Z86.73 Personal history of transient ischemic attack (TIA), and cerebral infarction without residual deficits; Z79.82 Long term (current) use of aspirin; Z71.3 Dietary counseling and surveillance; Z68.27 Body mass index [BMI] 27.0-27.9, adult; W01.0XXA Fall on same level from slipping, tripping and stumbling without subsequent striking against object, initial encounter
CPT/HCPCS: 36415; 71010; 73502; 80048; 80053; 81001; 82550; 82553; 83735; 84132; 84484; 85025; 85610; 86850; 86900; 86901; 87086; 88304; 88311; 93005; 93306; 94640; 94760

== ENCOUNTER 2016-10-02 21:05 | Inpatient (IN) | payer MEDICARE, OTHER ==
[2016-10-02 22:26] LABS: Appearance,Urine Clear (Clear); Bilirubin,Urine Negative (Negative); Glucose,Urine (UA) Negative (Negative); Ketones,Urine Negative (Negative); Leukocyte Esterase,Urine Negative (Negative); Nitrite,Urine Negative (Negative); Particle Count 238; Protein,Urine Negative (Negative); RBC,Urine 6 /hpf (0-5); Specific Gravity,Urine 1.005 (1.001-1.035); UA Billing (MACRO vs. MICRO) MICRO; Urobilinogen,Urine <2.0 mg/dL (<2.0)
[2016-10-02 22:28] LABS: ALT 28 U/L (21-72); AST 13 U/L (17-59); Alkaline Phosphatase 54 U/L (38-126); Anion Gap 8 mmol/L; Blood Urea Nitrogen 20 mg/dL (9-20); Calcium 8.4 mg/dL (8.4-10.2); Carbon Dioxide 30 mmol/L (22-30); Chloride 105 mmol/L (98-107); Glucose 96 mg/dL (74-99); Magnesium 2.1 mg/dL (1.6-2.3); Non-African American GFR(MDRD) >60 (>60 ml/min/1.73 sqM); Potassium 4.2 mmol/L (3.5-5.1); Sodium 143 mmol/L (137-145); Total Bilirubin 0.5 mg/dL (0.2-1.3); Total Protein 6.6 g/dL (6.3-8.2)
[2016-10-02 22:35] LABS: Basophils % (A) 0 %; CH 28.8; CHCM 30.5; Eosinophils # (A) 0.3 k/uL (0-0.7); Eosinophils % (A) 3 %; HCT 30.9 % (39.0-53.0); HDW 2.62; Hypochromasia Moderate; INR 1.2 (<1.2); Luc # (Auto) 0.26; Luc % (Auto) 3; Lymphocytes # (A) 1.1 k/uL (1.0-4.8); Lymphocytes % (A) 13 %; MCH 29.4 pg (25.0-35.0); MCV 94.6 fL (80.0-100.0); Mean Platelet Volume 8.4; Monocytes # (A) 0.6 k/uL (0-1.0); Monocytes % (A) 7 %; Neutrophils # (A) 6.2 k/uL (1.3-7.7); Neutrophils % (A) 74 %; Partial Thromboplastin Time 24.7 sec (22.0-30.0); Prothrombin Time 12.2 sec (9.0-12.0); RBC 3.26 m/uL (4.30-5.90); RDW 15.7 % (11.5-15.5); WBC 8.4 k/uL (3.8-10.6); WBC (Perox) 8.38
--- NOTE | 2016-10-02 22:35 | XR ---
EXAM: XR Chest, 2 Views CLINICAL HISTORY: Reason: difficulty breathing TECHNIQUE: Frontal and lateral views of the chest. COMPARISON: No relevant prior studies available. FINDINGS: Lungs: Small right pleural effusion. Mild vascular congestion. Diffuse interstitial prominence may represent pulmonary edema. Diffuse interstitial thickening. No dense consolidation, other pleural effusion or pneumothorax. Pleural space: See above. Heart: Suggestion of mild cardiomegaly. Mediastinum: Unremarkable. Bones/joints: Evidence of prior coronary artery revascularization surgery. Intact sternotomy wires. No unusual lytic or sclerotic lesions of bone. IMPRESSION: Findings may represent mild congestive heart failure exacerbation In the right clinical setting. No other evidence for acute cardiopulmonary disease.
[2016-10-02 22:36] LABS: Creatine Kinase <20 U/L (55-170); HGB 9.6 gm/dL (13.0-17.5)
[2016-10-02 22:50] LABS: Creatine Kinase MB 0.9 ng/mL (0.0-2.4); Troponin I 0.033 ng/mL (0.000-0.034)
[2016-10-02] MEDS ORDERED: FUROSEMIDE 10 MG/ML 4 ML VIAL IV STA (23:53)
[2016-10-02] MEDS ORDERED: ASPIRIN 325 MG TAB PO STA (23:53)
[2016-10-02] MEDS ORDERED: NALOXONE 0.4 MG/ML 1 ML VIAL IV PRN (23:54)
--- NOTE | 2016-10-03 00:04 | ED ---
General Adult HPI - General Chief complaint: Shortness of Breath Stated complaint: RAYMON Time Seen by Provider: 10/02/16 21:14 Source: patient, family, RN notes reviewed Mode of arrival: EMS Limitations: no limitations - History of Present Illness Initial comments: 75-year-old male with history of itchy fibrillation, coronary artery disease, congestive heart failure, and CVA presents with three-day history of worsening bilateral lower extremity swelling and shortness of breath. Patient denies chest pain. States he has had a mild cough with yellow sputum. Denies fever. Patient is currently on Lasix and spironolactone for congestive heart failure and lower extremity swelling. He is also on our requests for atrial fibrillation. Denies any recent medication changes. Denies significant salt intake. Denies nausea vomiting or diarrhea. - Related Data Home Medications Medication Instructions Recorded Confirmed Isosorbide Mononitrate [Imdur] 30 mg PO BID 07/13/13 10/02/16 Tiotropium 18 Mcg/Puff [Spiriva] 1 cap INHALATION RT-DAILY 07/13/13 10/02/16 hydrALAZINE HCL 25 mg PO BID 07/13/13 10/02/16 Albuterol Inhaler [Ventolin Hfa 1 - 2 puff INHALATION RT-Q6H PRN 10/08/14 Inhaler] Budesonide-Formot 160-4.5 Mcg 2 puff INHALATION RT-BID 10/08/14 10/02/16 [Symbicort 160-4.5 Mcg Inhaler] Folic Acid 1 mg PO DAILY 10/08/14 10/02/16 Apixaban [Eliquis] 2.5 mg PO BID 03/19/16 10/02/16 Ascorbic Acid [Vitamin C] 250 mg PO DAILY 03/19/16 10/02/16 Aspirin EC [Ecotrin Low Dose] 81 mg PO DAILY 03/19/16 10/02/16 Ferrous Sulfate [Feosol] 325 mg PO TID 03/19/16 10/02/16 Furosemide [Lasix] 80 mg PO DAILY 03/19/16 10/02/16 Nitroglycerin Sl Tabs [Nitrostat] 0.4 mg SUBLINGUAL Q5M PRN 03/19/16 10/02/16 Polyethylene Glycol 3350 [Miralax] 17 gm PO DAILY 03/19/16 10/02/16 Potassium Chloride ER [K-Dur 20] 20 meq PO QID 03/19/16 10/02/16 Cyanocobalamin (Vitamin B-12) 1,000 mcg PO DAILY 08/09/16 10/02/16 [Vitamin B-12] Sennosides [Senna] 8.6 mg PO DAILY PRN 08/09/16 10/02/16 Simvastatin 40 mg PO HS 08/09/16 10/02/16 Allergies Allergy/AdvReac Type Severity Reaction Status Date / Time No Known Allergies Allergy Verified 10/02/16 22:46 Review of Systems ROS Statement: Those systems with pertinent positive or pertinent negative responses have been documented in the HPI. ROS Other: All systems not noted in ROS Statement are negative. Past Medical History Past Medical History: Atrial Fibrillation, Coronary Artery Disease (CAD), Heart Failure, COPD, CVA/TIA, Hyperlipidemia, Hypertension, Myocardial Infarction ([place]) , Sleep Apnea/CPAP/BIPAP Additional Past Medical History / Comment(s): blood transfusion/ANEMIA, STOPPED USING HIS CPAP MACHINE YEARS AGO, CONSTIPATION, SMALL SLIDING HIATAL HERNIA AND SMALL POLYP REMOVED.,HX MILD RENAL FAILURE. Last Myocardial Infarction Date:: HAD X2 LAST ONE 2002 History of Any Multi-Drug Resistant Organisms: None Reported Past Surgical History: Appendectomy, Coronary Bypass/CABG Additional Past Surgical History / Comment(s): TRIPLE BYPASS, COLONOSCOPY/EGD Additional Past Anesthesia/Blood Transfusion Reaction / Comment(s): CLAUSTERPHOBIA Past Psychological History: No Psychological Hx Reported Smoking Status: Former smoker Past Alcohol Use History: Occasional Past Drug Use History: None Reported - Past Family History Father Family Medical History: Cancer Additional Family Medical History / Comment(s): of pancreatic cancer Mother Family Medical History: Diabetes Mellitus Additional Family Medical History / Comment(s): AT AGE 90 WAS IN PRETTY GOOD HEALTH FROM OLD AGE Brother(s) Family Medical History: Diabetes Mellitus Additional Family Medical History / Comment(s): 2 BROTHERS HAVE DIABETES General Exam Limitations: no limitations General appearance: alert, in no apparent distress Head exam: Present: atraumatic, normocephalic Eye exam: Present: normal appearance, PERRL ENT exam: Present: mucous membranes moist Neck exam: Present: normal inspection, full ROM Respiratory exam: Present: rales Cardiovascular Exam: Present: regular rate, irregular rhythm GI/Abdominal exam: Present: soft. Absent: distended, tenderness Extremities exam: Present: pedal edema (3+ pitting edema bilaterally) Neurological exam: Present: alert, oriented X3 Psychiatric exam: Present: normal affect, normal mood Skin exam: Present: warm, dry. Absent: cyanosis Course Vital Signs 10/02/16 10/02/16 21:06 23:21 Temperature 97.8 F Pulse Rate 61 87 Respiratory 24 18 Rate Blood Pressure 101/51 114/60 O2 Sat by Pulse 97 99 Oximetry EKG Findings - EKG Comments: EKG Findings:: EKG shows atrial fibrillation with PVCs, ventricular rate of 77, QRS duration 128, QTC is 502 Medical Decision Making - Medical Decision Making 75-year-old male presenting with worsening bilateral lower artery swelling and difficult to breathing. Patient does have a history of congestive heart failure. Denies any medication changes. Denies chest pain. He is on eliqus for atrial fibrillation. Chest x-ray shows pulmonary vascular congestion, pulmonary auscultation does reveal bilateral Rales, there is 3+ pitting edema in the lower extremities. Patient will be admitted for further diuresis and cardiology evaluation. Diagnosis: Congestive heart failure exacerbation - Lab Data Result diagrams: 10/02/16 22:02 10/02/16 22:02 Lab Results 10/02/16 10/02/16 10/02/16 Range/Units 22:02 22:02 22:02 WBC 8.4 (3.8-10.6) k/uL RBC 3.26 L (4.30-5.90) m/uL Hgb 9.6 L D (13.0-17.5) gm/dL Hct 30.9 L (39.0-53.0) % MCV 94.6 (80.0-100.0) fL MCH 29.4 (25.0-35.0) pg MCHC 31.0 (31.0-37.0) g/dL RDW 15.7 H (11.5-15.5) % Plt Count 256 (150-450) k/uL Neutrophils % 74 % Lymphocytes % 13 % Monocytes % 7 % Eosinophils % 3 % Basophils % 0 % Neutrophils # 6.2 (1.3-7.7) k/uL Lymphocytes # 1.1 (1.0-4.8) k/uL Monocytes # 0.6 (0-1.0) k/uL Eosinophils # 0.3 (0-0.7) k/uL Basophils # 0.0 (0-0.2) k/uL Hypochromasia Moderate PT (9.0-12.0) sec INR (<1.2) APTT (22.0-30.0) sec Sodium 143 (137-145) mmol/L Potassium 4.2 (3.5-5.1) mmol/L Chloride 105 (98-107) mmol/L Carbon Dioxide 30 (22-30) mmol/L Anion Gap 8 mmol/L BUN 20 (9-20) mg/dL Creatinine 1.10 (0.66-1.25) mg/dL Est GFR (MDRD) Af Amer >60 (>60 ml/min/1.73 sqM) Est GFR (MDRD) Non-Af >60 (>60 ml/min/1.73 sqM) Glucose 96 (74-99) mg/dL Calcium 8.4 (8.4-10.2) mg/dL Magnesium 2.1 (1.6-2.3) mg/dL Total Bilirubin 0.5 (0.2-1.3) mg/dL AST 13 L (17-59) U/L ALT 28 (21-72) U/L Alkaline Phosphatase 54 (38-126) U/L Total Creatine Kinase <20 L (55-170) U/L CK-MB (CK-2) 0.9 (0.0-2.4) ng/mL CK-MB (CK-2) Rel Index 0.0 Troponin I 0.033 (0.000-0.034) ng/mL NT-Pro-B Natriuret Pep pg/mL Total Protein 6.6 (6.3-8.2) g/dL Albumin 2.9 L (3.5-5.0) g/dL Urine Color Urine Appearance (Clear) Urine pH (5.0-8.0) Ur Specific Harrison (1.001-1.035) Urine Protein (Negative) Urine Glucose (UA) (Negative) Urine Ketones (Negative) Urine Blood (Negative) Urine Nitrite (Negative) Urine Bilirubin (Negative) Urine Urobilinogen (<2.0) mg/dL Ur Leukocyte Esterase (Negative) Urine RBC (0-5) /hpf Hyaline Casts (0-2) /lpf 10/02/16 10/02/16 10/02/16 Range/Units 22:02 22:02 22:02 WBC (3.8-10.6) k/uL RBC (4.30-5.90) m/uL Hgb (13.0-17.5) gm/dL Hct (39.0-53.0) % MCV (80.0-100.0) fL MCH (25.0-35.0) pg MCHC (31.0-37.0) g/dL RDW (11.5-15.5) % Plt Count (150-450) k/uL Neutrophils % % Lymphocytes % % Monocytes % % Eosinophils % % Basophils % % Neutrophils # (1.3-7.7) k/uL Lymphocytes # (1.0-4.8) k/uL Monocytes # (0-1.0) k/uL Eosinophils # (0-0.7) k/uL Basophils # (0-0.2) k/uL Hypochromasia PT 12.2 H (9.0-12.0) sec INR 1.2 H (<1.2) APTT 24.7 (22.0-30.0) sec Sodium (137-145) mmol/L Potassium (3.5-5.1) mmol/L Chloride (98-107) mmol/L Carbon Dioxide (22-30) mmol/L Anion Gap mmol/L BUN (9-20) mg/dL Creatinine (0.66-1.25) mg/dL Est GFR (MDRD) Af Amer (>60 ml/min/1.73 sqM) Est GFR (MDRD) Non-Af (>60 ml/min/1.73 sqM) Glucose (74-99) mg/dL Calcium (8.4-10.2) mg/dL Magnesium (1.6-2.3) mg/dL Total Bilirubin (0.2-1.3) mg/dL AST (17-59) U/L ALT (21-72) U/L Alkaline Phosphatase (38-126) U/L Total Creatine Kinase (55-170) U/L CK-MB (CK-2) (0.0-2.4) ng/mL CK-MB (CK-2) Rel Index Troponin I (0.000-0.034) ng/mL NT-Pro-B Natriuret Pep 997 pg/mL Total Protein (6.3-8.2) g/dL Albumin (3.5-5.0) g/dL Urine Color Colorless Urine Appearance Clear (Clear) Urine pH 7.0 (5.0-8.0) Ur Specific Harrison 1.005 (1.001-1.035) Urine Protein Negative (Negative) Urine Glucose (UA) Negative (Negative) Urine Ketones Negative (Negative) Urine Blood Small H (Negative) Urine Nitrite Negative (Negative) Urine Bilirubin Negative (Negative) Urine Urobilinogen <2.0 (<2.0) mg/dL Ur Leukocyte Esterase Negative (Negative) Urine RBC 6 H (0-5) /hpf Hyaline Casts 1 (0-2) /lpf Disposition Clinical Impression: Congestive heart failure Disposition: ADMITTED IP TO THIS [facility] Condition: Stable Referrals: Nasim Thacker DO [Primary Care Provider] - 1-2 days Decision to Admit Reason: Admit from EC Decision Date: 10/03/16 Decision Time: 00:04
[2016-10-03 02:05] VITALS: BMI 30.6
[2016-10-03 04:56] LABS: Basophils % (A) 0 %; CH 28.3; CHCM 29.8; Eosinophils # (A) 0.2 k/uL (0-0.7); Eosinophils % (A) 3 %; HCT 28.6 % (39.0-53.0); HDW 2.59; HGB 8.9 gm/dL (13.0-17.5); Hypochromasia Marked; Luc # (Auto) 0.23; Luc % (Auto) 4; Lymphocytes # (A) 0.9 k/uL (1.0-4.8); Lymphocytes % (A) 15 %; MCH 29.6 pg (25.0-35.0); MCV 95.3 fL (80.0-100.0); Mean Platelet Volume 7.7; Monocytes # (A) 0.4 k/uL (0-1.0); Monocytes % (A) 7 %; Neutrophils # (A) 4.5 k/uL (1.3-7.7); Neutrophils % (A) 71 %; RDW 15.7 % (11.5-15.5); WBC 6.3 k/uL (3.8-10.6); WBC (Perox) 7.04
[2016-10-03 05:06] LABS: Anion Gap 8 mmol/L; Blood Urea Nitrogen 19 mg/dL (9-20); Calcium 8.1 mg/dL (8.4-10.2); Carbon Dioxide 28 mmol/L (22-30); Chloride 106 mmol/L (98-107); Glucose 84 mg/dL (74-99); Non-African American GFR(MDRD) >60 (>60 ml/min/1.73 sqM); Sodium 142 mmol/L (137-145)
[2016-10-03 05:16] LABS: Creatine Kinase <20 U/L (55-170)
[2016-10-03 05:30] LABS: Creatine Kinase MB 0.7 ng/mL (0.0-2.4); Troponin I 0.018 ng/mL (0.000-0.034)
[2016-10-03] MEDS: APIXABAN 2.5 MG TABLET PO SCH ×2 (08:50→20:11)
[2016-10-03] MEDS: FUROSEMIDE 10 MG/ML 2 ML VIAL IV SCH ×2 (08:50→20:12)
--- NOTE | 2016-10-03 09:46 | P.CRDCN ---
History of Present Illness Consult date: 10/03/16 Requesting physician: Anne Marie Powers Consult reason: congestive heart failure Chief complaint: Shortness of breath and bilateral leg swelling History of present illness: This is a 75-year-old gentleman who follows regularly with Dr. Rossana Dunaway in the office. He has a known history of coronary artery disease with prior bypass surgery, hypertension, hyperlipidemia, sleep apnea, prior CVA, chronic anemia, chronic persistent atrial fibrillation, most recent echocardiogram with Doppler study was performed in July of this year which revealed an ejection fraction of 45-50%. He presents to the hospital with symptoms of 3-4 day duration of worsening shortness of breath and worsening bilateral peripheral edema. Positive PND, denies any orthopnea, he states he sleeps in a lazy boy chair. Chest x-ray on admission reveals mild congestive heart failure exacerbation. EKG shows atrial fibrillation with a controlled ventricular response. Blood pressure 103/50 with a heart rate in the 60s. 97% on 2 L of oxygen. Hemoglobin 8.9, platelet count 222, calcium 4.0, BUN 19, creatinine 1.0. Troponin 0.033, 0.018. BNP 997. Patient was initiated on IV Lasix in the emergency room, diuresed 1700 through the night last night. At the time of my examination this morning, he does state that his breathing is mildly improved this morning, continues to have significant bilateral peripheral edema. Collins wraps in place. Past Medical History Past Medical History: Atrial Fibrillation, Coronary Artery Disease (CAD), Heart Failure, COPD, CVA/TIA, Hyperlipidemia, Hypertension, Myocardial Infarction ([place]) , Sleep Apnea/CPAP/BIPAP Additional Past Medical History / Comment(s): blood transfusion/ANEMIA, STOPPED USING HIS CPAP MACHINE YEARS AGO, CONSTIPATION, SMALL SLIDING HIATAL HERNIA AND SMALL POLYP REMOVED.,HX MILD RENAL FAILURE. Last Myocardial Infarction Date:: HAD X2 LAST ONE 2002 History of Any Multi-Drug Resistant Organisms: None Reported Past Surgical History: Appendectomy, Coronary Bypass/CABG, Orthopedic Surgery Additional Past Surgical History / Comment(s): TRIPLE BYPASS, COLONOSCOPY/EGD, R hip sx Additional Past Anesthesia/Blood Transfusion Reaction / Comment(s): CLAUSTERPHOBIA Past Psychological History: No Psychological Hx Reported Smoking Status: Former smoker Past Alcohol Use History: Occasional Past Drug Use History: None Reported - Past Family History Father Family Medical History: Cancer Additional Family Medical History / Comment(s): of pancreatic cancer Mother Family Medical History: Diabetes Mellitus Additional Family Medical History / Comment(s): AT AGE 90 WAS IN PRETTY GOOD HEALTH FROM OLD AGE Brother(s) Family Medical History: Diabetes Mellitus Additional Family Medical History / Comment(s): 2 BROTHERS HAVE DIABETES Medications and Allergies Home Medications Medication Instructions Recorded Confirmed Type Isosorbide Mononitrate [Imdur] 30 mg PO BID 07/13/13 10/02/16 History Tiotropium 18 Mcg/Puff [Spiriva] 1 cap INHALATION RT-DAILY 07/13/13 10/02/16 History hydrALAZINE HCL 25 mg PO BID 07/13/13 10/02/16 History Albuterol Inhaler [Ventolin Hfa 1 - 2 puff INHALATION RT-Q6H PRN 10/08/14 History Inhaler] Budesonide-Formot 160-4.5 Mcg 2 puff INHALATION RT-BID 10/08/14 10/02/16 History [Symbicort 160-4.5 Mcg Inhaler] Folic Acid 1 mg PO DAILY 10/08/14 10/02/16 History Apixaban [Eliquis] 2.5 mg PO BID 03/19/16 10/02/16 History Ascorbic Acid [Vitamin C] 250 mg PO DAILY 03/19/16 10/02/16 History Aspirin EC [Ecotrin Low Dose] 81 mg PO DAILY 03/19/16 10/02/16 History Ferrous Sulfate [Feosol] 325 mg PO TID 03/19/16 10/02/16 History Furosemide [Lasix] 80 mg PO DAILY 03/19/16 10/02/16 History Nitroglycerin Sl Tabs [Nitrostat] 0.4 mg SUBLINGUAL Q5M PRN 03/19/16 10/02/16 History Polyethylene Glycol 3350 [Miralax] 17 gm PO DAILY 03/19/16 10/02/16 History Potassium Chloride ER [K-Dur 20] 20 meq PO QID 03/19/16 10/02/16 History Cyanocobalamin (Vitamin B-12) 1,000 mcg PO DAILY 08/09/16 10/02/16 History [Vitamin B-12] Sennosides [Senna] 8.6 mg PO DAILY PRN 08/09/16 10/02/16 History Simvastatin 40 mg PO HS 08/09/16 10/02/16 History Allergies Allergy/AdvReac Type Severity Reaction Status Date / Time No Known Allergies Allergy Verified 10/02/16 22:46 Physical Exam Vitals: Vital Signs Temp Pulse Pulse Resp BP BP Pulse Ox 10/03/16 08:47 97.8 F 66 20 103/55 97 10/03/16 04:00 72 18 110/53 99 10/03/16 01:37 97.2 F L 67 20 108/52 99 10/03/16 01:00 72 18 99/50 99 10/02/16 23:21 87 18 114/60 99 10/02/16 21:06 97.8 F 61 24 101/51 97 Intake and Output 10/02/16 10/03/16 10/03/16 22:59 06:59 14:59 Output Total 1750 Balance -1750 Output: Urine 1750 Other: # Voids 1 Weight 95.254 kg 102.5 kg PHYSICAL EXAMINATION: HEENT: Head is atraumatic, normocephalic. Pupils equal, round. Neck is supple. There is no elevated jugular venous pressure. HEART EXAMINATION: S1 and S2 irregularly irregular systolic murmur is heard. CHEST EXAMINATION: Circulation with mild diminished air entry to bilateral bases. ABDOMEN: Soft, nontender. Bowel sounds are heard. No organomegaly noted. EXTREMITIES: 1+ peripheral pulses with 2+ evidence of peripheral edema and no calf tenderness noted. NEUROLOGIC patient is awake, alert and oriented -3. . Results 10/03/16 04:46 10/03/16 04:46 Cardiac Enzymes 10/02/16 10/02/16 10/03/16 Range/Units 22:02 22:02 04:46 AST 13 L (17-59) U/L CK-MB (CK-2) 0.9 0.7 (0.0-2.4) ng/mL Troponin I 0.033 0.018 (0.000-0.034) ng/mL Coagulation 10/02/16 Range/Units 22:02 PT 12.2 H (9.0-12.0) sec APTT 24.7 (22.0-30.0) sec CBC 10/02/16 10/03/16 Range/Units 22:02 04:46 WBC 8.4 6.3 (3.8-10.6) k/uL RBC 3.26 L 3.00 L (4.30-5.90) m/uL Hgb 9.6 L D 8.9 L (13.0-17.5) gm/dL Hct 30.9 L 28.6 L (39.0-53.0) % Plt Count 256 222 (150-450) k/uL Comprehensive Metabolic Panel 10/02/16 10/03/16 Range/Units 22:02 04:46 Sodium 143 142 (137-145) mmol/L Potassium 4.2 4.0 (3.5-5.1) mmol/L Chloride 105 106 (98-107) mmol/L Carbon Dioxide 30 28 (22-30) mmol/L BUN 20 19 (9-20) mg/dL Creatinine 1.10 1.02 (0.66-1.25) mg/dL Glucose 96 84 (74-99) mg/dL Calcium 8.4 8.1 L (8.4-10.2) mg/dL AST 13 L (17-59) U/L ALT 28 (21-72) U/L Alkaline Phosphatase 54 (38-126) U/L Total Protein 6.6 (6.3-8.2) g/dL Albumin 2.9 L (3.5-5.0) g/dL Current Medications Generic Name Dose Route Start Last Admin Trade Name Freq PRN Reason Stop Dose Admin Apixaban 2.5 mg 10/03/16 09:00 10/03/16 08:50 Eliquis PO 2.5 mg BID NICKOLAS Administration Atorvastatin Calcium 20 mg 10/03/16 21:00 Lipitor PO HS NICKOLAS Furosemide 20 mg 10/03/16 09:00 10/03/16 08:50 Lasix IV 20 mg Q12HR NICKOLAS Administration Hydralazine HCl 25 mg 10/03/16 09:00 Apresoline PO BID NICKOLAS Naloxone HCl 0.2 mg 10/02/16 23:54 Narcan IV Q2M PRN Opioid Reversal Intake and Output 10/02/16 10/03/16 10/03/16 22:59 06:59 14:59 Output Total 1750 Balance -1750 Output: Urine 1750 Other: # Voids 1 Weight 95.254 kg 102.5 kg 10/03/16 04:46 10/03/16 04:46 EKG Interpretations (text) EKG shows atrial fibrillation with a controlled ventricular response. Assessment and Plan Plan: Assessment and plan #1 diastolic congestive heart failure acute on chronic #2 chronic persistent atrial fibrillation, on Eliquis for anticoagulation #3 known history of coronary artery disease and prior bypass surgery #4 history of hypertension # 5 hyperlipidemia #6 sleep apnea #7 mildly COPD #8 chronic anemia Plan We will continue current dose of IV Lasix. Add beta everton, COLLINS inhibitor, and Aldactone to the medication regime. Monitor intake and output and daily weights. Patient did recently have an echo performed in July we will not repeat an echo on this admission. Further recommendations to follow. DNP note has been reviewed, I agree with a documented findings and plan of care. Patient was seen and examined.
[2016-10-03 12:05] LABS: Creatine Kinase <20 U/L (55-170)
[2016-10-03] MEDS: hydrALAZINE HCL 25 MG TAB PO SCH ×2 (12:11→23:02)
[2016-10-03] MEDS: CARVEDILOL 3.125 MG TAB PO SCH ×2 (12:12→18:44)
[2016-10-03] MEDS: SPIRONOLACTONE 25 MG TAB PO SCH (12:12)
[2016-10-03 12:17] LABS: Creatine Kinase MB 0.8 ng/mL (0.0-2.4); Troponin I 0.026 ng/mL (0.000-0.034)
[2016-10-03] MEDS ORDERED: SENNOSIDES 8.6 MG TAB PO PRN (14:59)
--- NOTE | 2016-10-03 14:59 | P.HPIM ---
History of Present Illness H&P Date: 10/03/16 Chief Complaint: Difficulty breathing This is a 75-year-old gentleman with known history of congestive heart failure with ejection fraction around 45-50%, the hospital with progressive worsening of lower extremity edema and worsening in shortness of breath. Patient states that he does have PND and orthopnea. Patient also has a history of atrial fibrillation currently maintained on and multiple anticoagulant Patient was noted to have fluid overload on chest x-ray. Patient also was noted to have elevated BNP around 97. Patient was given a dose of IV Lasix Patient was brought in to the hospital for ongoing care This morning patient was noted to have a nosebleed which is controlled 5 denies having any headaches blurry vision nausea vomiting abdominal pain diarrhea urinary urgency or frequency at this time Review of Systems All systems: negative (Noted in HPI) Past Medical History Past Medical History: Atrial Fibrillation, Coronary Artery Disease (CAD), Heart Failure, COPD, CVA/TIA, Hyperlipidemia, Hypertension, Myocardial Infarction ([place]) , Sleep Apnea/CPAP/BIPAP Additional Past Medical History / Comment(s): blood transfusion/ANEMIA, STOPPED USING HIS CPAP MACHINE YEARS AGO, CONSTIPATION, SMALL SLIDING HIATAL HERNIA AND SMALL POLYP REMOVED.,HX MILD RENAL FAILURE. Last Myocardial Infarction Date:: HAD X2 LAST ONE 2002 History of Any Multi-Drug Resistant Organisms: None Reported Past Surgical History: Appendectomy, Coronary Bypass/CABG, Orthopedic Surgery Additional Past Surgical History / Comment(s): TRIPLE BYPASS, COLONOSCOPY/EGD, R hip sx Additional Past Anesthesia/Blood Transfusion Reaction / Comment(s): CLAUSTERPHOBIA Past Psychological History: No Psychological Hx Reported Smoking Status: Former smoker Past Alcohol Use History: Occasional Past Drug Use History: None Reported - Past Family History Father Family Medical History: Cancer Additional Family Medical History / Comment(s): of pancreatic cancer Mother Family Medical History: Diabetes Mellitus Additional Family Medical History / Comment(s): AT AGE 90 WAS IN PRETTY GOOD HEALTH FROM OLD AGE Brother(s) Family Medical History: Diabetes Mellitus Additional Family Medical History / Comment(s): 2 BROTHERS HAVE DIABETES Medications and Allergies Home Medications Medication Instructions Recorded Confirmed Type Isosorbide Mononitrate [Imdur] 30 mg PO BID 07/13/13 10/02/16 History Tiotropium 18 Mcg/Puff [Spiriva] 1 cap INHALATION RT-DAILY 07/13/13 10/02/16 History hydrALAZINE HCL 25 mg PO BID 07/13/13 10/02/16 History Albuterol Inhaler [Ventolin Hfa 1 - 2 puff INHALATION RT-Q6H PRN 10/08/14 History Inhaler] Budesonide-Formot 160-4.5 Mcg 2 puff INHALATION RT-BID 10/08/14 10/02/16 History [Symbicort 160-4.5 Mcg Inhaler] Folic Acid 1 mg PO DAILY 10/08/14 10/02/16 History Apixaban [Eliquis] 2.5 mg PO BID 03/19/16 10/02/16 History Ascorbic Acid [Vitamin C] 250 mg PO DAILY 03/19/16 10/02/16 History Aspirin EC [Ecotrin Low Dose] 81 mg PO DAILY 03/19/16 10/02/16 History Ferrous Sulfate [Feosol] 325 mg PO TID 03/19/16 10/02/16 History Furosemide [Lasix] 80 mg PO DAILY 03/19/16 10/02/16 History Nitroglycerin Sl Tabs [Nitrostat] 0.4 mg SUBLINGUAL Q5M PRN 03/19/16 10/02/16 History Polyethylene Glycol 3350 [Miralax] 17 gm PO DAILY 03/19/16 10/02/16 History Potassium Chloride ER [K-Dur 20] 20 meq PO QID 03/19/16 10/02/16 History Cyanocobalamin (Vitamin B-12) 1,000 mcg PO DAILY 08/09/16 10/02/16 History [Vitamin B-12] Sennosides [Senna] 8.6 mg PO DAILY PRN 08/09/16 10/02/16 History Simvastatin 40 mg PO HS 08/09/16 10/02/16 History Allergies Allergy/AdvReac Type Severity Reaction Status Date / Time No Known Allergies Allergy Verified 10/02/16 22:46 Physical Exam Vitals: Vital Signs Temp Pulse Pulse Resp BP BP Pulse Ox 10/03/16 12:00 97.3 F L 68 16 121/60 100 10/03/16 08:47 97.8 F 66 20 103/55 97 10/03/16 04:00 72 18 110/53 99 10/03/16 01:37 97.2 F L 67 20 108/52 99 10/03/16 01:00 72 18 99/50 99 10/02/16 23:21 87 18 114/60 99 10/02/16 21:06 97.8 F 61 24 101/51 97 Intake and Output 10/02/16 10/03/16 10/03/16 22:59 06:59 14:59 Output Total 1750 300 Balance -1750 -300 Output: Urine 1750 300 Other: Voiding Method Urinal # Voids 1 Weight 95.254 kg 102.5 kg Physical exam Gen. appearance oriented 3 in no distress Neck is supple no JVD Lungs movement is noted crackles at the bases Nose dried blood in the left nostril 2+ pitting edema in the lower extremities Heart S1-S2 heard regular rate and rhythm no murmurs appreciated Abdomen is soft nontender no organomegaly bowel sounds are intact Neurologically cranial nerves II-12 grossly intact no focal motor or sensory deficits noted Skin no abnormalities appreciated Results CBC & Chem 7: 10/03/16 04:46 10/03/16 04:46 Labs: Abnormal Lab Results - Last 24 Hours (Table) 10/02/16 10/02/16 10/02/16 Range/Units 22:02 22:02 22:02 RBC 3.26 L (4.30-5.90) m/uL Hgb 9.6 L D (13.0-17.5) gm/dL Hct 30.9 L (39.0-53.0) % RDW 15.7 H (11.5-15.5) % Lymphocytes # (1.0-4.8) k/uL PT (9.0-12.0) sec INR (<1.2) Calcium (8.4-10.2) mg/dL AST 13 L (17-59) U/L Total Creatine Kinase <20 L (55-170) U/L Albumin 2.9 L (3.5-5.0) g/dL Urine Blood (Negative) Urine RBC (0-5) /hpf 10/02/16 10/02/16 10/03/16 Range/Units 22:02 22:02 04:46 RBC (4.30-5.90) m/uL Hgb (13.0-17.5) gm/dL Hct (39.0-53.0) % RDW (11.5-15.5) % Lymphocytes # (1.0-4.8) k/uL PT 12.2 H (9.0-12.0) sec INR 1.2 H (<1.2) Calcium (8.4-10.2) mg/dL AST (17-59) U/L Total Creatine Kinase <20 L (55-170) U/L Albumin (3.5-5.0) g/dL Urine Blood Small H (Negative) Urine RBC 6 H (0-5) /hpf 10/03/16 10/03/16 10/03/16 Range/Units 04:46 04:46 10:49 RBC 3.00 L (4.30-5.90) m/uL Hgb 8.9 L (13.0-17.5) gm/dL Hct 28.6 L (39.0-53.0) % RDW 15.7 H (11.5-15.5) % Lymphocytes # 0.9 L (1.0-4.8) k/uL PT (9.0-12.0) sec INR (<1.2) Calcium 8.1 L (8.4-10.2) mg/dL AST (17-59) U/L Total Creatine Kinase <20 L (55-170) U/L Albumin (3.5-5.0) g/dL Urine Blood (Negative) Urine RBC (0-5) /hpf Thrombosis Risk Factor Assmnt - Choose All That Apply Any of the Below Risk Factors Present?: Yes Each Factor Represents 1 point: Swollen legs (current) Each Risk Factor Represents 3 Points: Age 75 years or older Thrombosis Risk Factor Assessment Total Risk Factor Score: 4 Thrombosis Risk Factor Assessment Level: Moderate Risk Assessment and Plan Plan: 1 acute exacerbation of diastolic heart failure #2 COPD that is stable #3 CAD #4 acute nosebleed which is controlled #5 essential hypertension #6 chronic atrial fibrillation #7 obstructive sleep apnea #8 chronic anemia due to chronic disease #9 dyslipidemia Plan Continue diuretics Strict I's and O's Daily weights Discontinue oxygen If needed use oxygen with humidity Continue current medication
[2016-10-03] MEDS ORDERED: FUROSEMIDE 10 MG/ML 4 ML VIAL IV STA (15:00)
[2016-10-03] MEDS: FERROUS SULFATE 325 MG TAB PO SCH (15:57)
[2016-10-03] MEDS: SYMBICORT 160-4.5 MCG INHALER INHALATION SCH (19:11)
[2016-10-03] MEDS ORDERED: ATORVASTATIN 20 MG TAB PO SCH (21:00)
[2016-10-04 06:35] LABS: Anisocytosis Slight; Aty Lym Flag Slight; Basophils % (A) 1 %; CH 29.1; CHCM 30.2; Eosinophils # (A) 0.2 k/uL (0-0.7); Eosinophils % (A) 3 %; HGB 8.7 gm/dL (13.0-17.5); Hypochromasia Marked; Luc # (Auto) 0.25; Luc % (Auto) 5; Lymphocytes # (A) 0.9 k/uL (1.0-4.8); Lymphocytes % (A) 17 %; MCV 96.7 fL (80.0-100.0); Mean Platelet Volume 8.2; Monocytes # (A) 0.4 k/uL (0-1.0); Monocytes % (A) 7 %; Neutrophils # (A) 3.6 k/uL (1.3-7.7); Neutrophils % (A) 68 %; RBC 2.89 m/uL (4.30-5.90); RDW 16.2 % (11.5-15.5); WBC 5.3 k/uL (3.8-10.6); WBC (Perox) 5.72
[2016-10-04 06:58] LABS: ALT 22 U/L (21-72); AST 20 U/L (17-59); Alkaline Phosphatase 42 U/L (38-126); Anion Gap 7 mmol/L; Blood Urea Nitrogen 21 mg/dL (9-20); Calcium 7.9 mg/dL (8.4-10.2); Carbon Dioxide 28 mmol/L (22-30); Chloride 103 mmol/L (98-107); Glucose 76 mg/dL (74-99); Non-African American GFR(MDRD) >60 (>60 ml/min/1.73 sqM); Sodium 138 mmol/L (137-145); Total Bilirubin 0.7 mg/dL (0.2-1.3); Total Protein 5.8 g/dL (6.3-8.2)
[2016-10-04] MEDS: CARVEDILOL 3.125 MG TAB PO SCH (07:10)
[2016-10-04] MEDS: FUROSEMIDE 10 MG/ML 2 ML VIAL IV SCH (08:52)
[2016-10-04] MEDS: SPIRONOLACTONE 25 MG TAB PO SCH (08:52)
[2016-10-04] MEDS: APIXABAN 2.5 MG TABLET PO SCH (08:52)
[2016-10-04] MEDS: FERROUS SULFATE 325 MG TAB PO SCH (08:52)
[2016-10-04] MEDS: POLYETHYLENE GLYCOL 3350 17 GM POWD.PACK PO SCH ×2 (08:53→12:38)
[2016-10-04] MEDS ORDERED: ASPIRIN 81 MG CHEW PO SCH (09:00)
[2016-10-04] MEDS ORDERED: FOLIC ACID 1 MG TAB PO SCH (12:00)
[2016-10-04] MEDS ORDERED: FUROSEMIDE 10 MG/ML 4 ML VIAL IV STA (12:08)
[2016-10-04] MEDS: hydrALAZINE HCL 25 MG TAB PO SCH (12:15)
[2016-10-04 12:16] VITALS: BP 111/53; PULSE 64; RESP 16; TEMP 97.2
[2016-10-04] MEDS: SYMBICORT 160-4.5 MCG INHALER INHALATION SCH (13:36)
--- NOTE | 2016-10-04 14:55 | P.DS ---
Providers Date of admission: 10/02/16 23:54 Attending physician: Anne Marie Powers Consults: 10/02/16 23:55 Consult Physician Urgent Consulting Provider: Saad Hair Consult Reason/Comments: Congestive heart failure Do you want consulting provider notified?: Yes, Notify in am Primary care physician: [place] [facility] Course: This is a 75-year-old gentleman with known history of congestive heart failure with ejection fraction around 45-50%, the hospital with progressive worsening of lower extremity edema and worsening in shortness of breath. Patient states that he does have PND and orthopnea. Patient also has a history of atrial fibrillation currently maintained on and multiple anticoagulant Patient was noted to have fluid overload on chest x-ray. Patient also was noted to have elevated BNP around 97. Patient was given a dose of IV Lasix Patient was brought in to the hospital for ongoing care This morning patient was noted to have a nosebleed which is controlled 5 denies having any headaches blurry vision nausea vomiting abdominal pain diarrhea urinary urgency or frequency at this time 10/04/2016 Patient states to be doing significantly better As orthopnea, PND, chest pain, difficulty breathing, nausea, vomiting, diarrhea , lower extremity edema is significantly improved \ Physical exam Gen. appearance oriented 3 in no distress Neck is supple no JVD Lungs movement is noted crackles at the bases Nose dried blood in the left nostril 1+ pitting edema in the lower extremities Heart S1-S2 heard regular rate and rhythm no murmurs appreciated Abdomen is soft nontender no organomegaly bowel sounds are intact Neurologically cranial nerves II-12 grossly intact no focal motor or sensory deficits noted Skin no abnormalities appreciated Assessment and Plan Plan: 1 acute exacerbation of diastolic heart failure, improved #2 COPD that is stable #3 CAD #4 acute nosebleed which is controlled #5 essential hypertension #6 chronic atrial fibrillation #7 obstructive sleep apnea #8 chronic anemia due to chronic disease #9 dyslipidemia We'll discharge the patient on oral diuretics and metolazone 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 Carvedilol [Coreg] 3.125 mg PO BID-W/MEALS #60 tab Furosemide [Lasix] 40 mg PO BID@0900,1600 #60 tab Lisinopril [Prinivil] 5 mg PO DAILY #30 tablet Spironolactone [Aldactone] 25 mg PO DAILY #30 tab Metolazone [Zaroxolyn] 2.5 mg PO DAILY #30 tablet No Action Tiotropium 18 Mcg/Puff [Spiriva] 1 cap INHALATION RT-DAILY hydrALAZINE HCL 25 mg PO BID Isosorbide Mononitrate [Imdur] 30 mg PO BID Folic Acid 1 mg PO DAILY Albuterol Inhaler [Ventolin Hfa Inhaler] 1 - 2 puff INHALATION RT-Q6H PRN PRN Reason: Shortness Of Breath Budesonide-Formot 160-4.5 Mcg [Symbicort 160-4.5 Mcg Inhaler] 2 puff INHALATION RT-BID Aspirin EC [Ecotrin Low Dose] 81 mg PO DAILY Furosemide [Lasix] 80 mg PO DAILY Polyethylene Glycol 3350 [Miralax] 17 gm PO DAILY Nitroglycerin Sl Tabs [Nitrostat] 0.4 mg SUBLINGUAL Q5M PRN PRN Reason: Chest Pain Ferrous Sulfate [Feosol] 325 mg PO TID Ascorbic Acid [Vitamin C] 250 mg PO DAILY Apixaban [Eliquis] 2.5 mg PO BID Potassium Chloride ER [K-Dur 20] 20 meq PO QID Simvastatin 40 mg PO HS Cyanocobalamin (Vitamin B-12) [Vitamin B-12] 1,000 mcg PO DAILY Sennosides [Senna] 8.6 mg PO DAILY PRN PRN Reason: Constipation Discharge Medication List Isosorbide Mononitrate [Imdur] 30 mg PO BID 07/13/13 [History] Tiotropium 18 Mcg/Puff [Spiriva] 1 cap INHALATION RT-DAILY 07/13/13 [History] hydrALAZINE HCL 25 mg PO BID 07/13/13 [History] Albuterol Inhaler [Ventolin Hfa Inhaler] 1 - 2 puff INHALATION RT-Q6H PRN [History] Budesonide-Formot 160-4.5 Mcg [Symbicort 160-4.5 Mcg Inhaler] 2 puff INHALATION RT-BID 10/08/14 [History] Folic Acid 1 mg PO DAILY 10/08/14 [History] Apixaban [Eliquis] 2.5 mg PO BID 03/19/16 [History] Ascorbic Acid [Vitamin C] 250 mg PO DAILY 03/19/16 [History] Aspirin EC [Ecotrin Low Dose] 81 mg PO DAILY 03/19/16 [History] Ferrous Sulfate [Feosol] 325 mg PO TID 03/19/16 [History] Furosemide [Lasix] 80 mg PO DAILY 03/19/16 [History] Nitroglycerin Sl Tabs [Nitrostat] 0.4 mg SUBLINGUAL Q5M PRN 03/19/16 [History] Polyethylene Glycol 3350 [Miralax] 17 gm PO DAILY 03/19/16 [History] Potassium Chloride ER [K-Dur 20] 20 meq PO QID 03/19/16 [History] Cyanocobalamin (Vitamin B-12) [Vitamin B-12] 1,000 mcg PO DAILY 08/09/16 [ History] Sennosides [Senna] 8.6 mg PO DAILY PRN 08/09/16 [History] Simvastatin 40 mg PO HS 08/09/16 [History] Aspirin [Adult Low Dose Aspirin EC] 81 mg PO DAILY #30 tablet. 10/04/16 [Rx] Carvedilol [Coreg] 3.125 mg PO BID-W/MEALS #60 tab 10/04/16 [Rx] Furosemide [Lasix] 40 mg PO BID@0900,1600 #60 tab 10/04/16 [Rx] Lisinopril [Prinivil] 5 mg PO DAILY #30 tablet 10/04/16 [Rx] Metolazone [Zaroxolyn] 2.5 mg PO DAILY #30 tablet 10/04/16 [Rx] Spironolactone [Aldactone] 25 mg PO DAILY #30 tab 10/04/16 [Rx] Follow up Appointment(s)/Referral(s): Nasim Thacker DO [Primary Care Provider] - 1-2 days (PLEASE CALL WEDNESDAY AM TO OBTAIN APPOINTMENT TIME) Priyank Chamorro MD [STAFF PHYSICIAN] - 1 Week (PLEASE CALL WEDNESDAY AM TO OBTAIN APPOINTMENT TIME) Patient Instructions/Handouts: Heart Failure ([place]) Discharge Disposition: HOME SELF-CARE
[2016-10-04] MEDS ORDERED: FUROSEMIDE 40 MG TAB PO SCH (16:00)
--- NOTE | 2016-10-05 12:04 | PN ---
Mr. Mahmood is a 75 -year-old gentleman with history of coronary artery disease with previous bypass surgery, hypertension, hyperlipidemia, prior CVA, chronic anemia and also persistent atrial fibrillation who was admitted to the hospital with complaints of increasing shortness of breath and peripheral edema. His chest x-ray was suggestive of mild CHF. BNP is mildly elevated. The patient was treated with IV Lasix along with Aldactone. The patient responded very well. He seemed to be much more comfortable and in fact wants to go home today. His blood pressure is about 100/53. Pulse rate is 64. Afebrile. Respirations 16. His lab values showed hemoglobin 8.7, electrolytes are normal. Physical examination showed no JVD. Lungs appear to be clear. Heart is irregular. FINAL IMPRESSION: 1. Congestive heart failure exacerbation which seems to be responding very well. 2. Anemia, chronic. 3. Atrial fibrillation. 4. Coronary artery disease. 5. Mild Cardiomyopathy. PLAN: Continue current medical therapy. Increase activity. Possible discharge within the next 24 to 48 hours. MTDD
== END 2016-10-04 15:37 | disposition home health service (06) | DRG 292 ==
LOC: EC 21:05 → 6SEL 23:54
PROVIDERS: ADMIT Internal Medicine; ATTEND Internal Medicine
DX: I11.0 Hypertensive heart disease with heart failure (principal); I48.1 Persistent atrial fibrillation; I42.9 Cardiomyopathy, unspecified; I50.33 Acute on chronic diastolic (congestive) heart failure; J44.9 Chronic obstructive pulmonary disease, unspecified; D63.8 Anemia in other chronic diseases classified elsewhere; R04.0 Epistaxis; I25.10 Atherosclerotic heart disease of native coronary artery without angina pectoris; Z86.73 Personal history of transient ischemic attack (TIA), and cerebral infarction without residual deficits; E78.5 Hyperlipidemia, unspecified; I25.2 Old myocardial infarction; G47.33 Obstructive sleep apnea (adult) (pediatric); K59.00 Constipation, unspecified; K44.9 Diaphragmatic hernia without obstruction or gangrene; F40.240 Claustrophobia; Z79.01 Long term (current) use of anticoagulants; Z79.82 Long term (current) use of aspirin; Z79.51 Long term (current) use of inhaled steroids; Z79.899 Other long term (current) drug therapy; Z95.1 Presence of aortocoronary bypass graft; Z87.891 Personal history of nicotine dependence
CPT/HCPCS: 36415; 71020; 80048; 80053; 81001; 82550; 82553; 83735; 83880; 84484; 85025; 85610; 85730; 93005; 94640; 96374; 99285

== ENCOUNTER → 2016-10-14 | Outpatient (CLI) | payer MEDICARE, OTHER ==
[2016-10-14 13:18] LABS: Calcium 8.8 mg/dL (8.4-10.2); Potassium 4.4 mmol/L (3.5-5.1)
== END | disposition home or self-care (01) ==
LOC: LABWHC1 12:04
PROVIDERS: ATTEND Nurse Practitioner Adult Health
DX: I50.22 Chronic systolic (congestive) heart failure (principal)
CPT/HCPCS: 36415; 80048

== ENCOUNTER → 2016-11-09 | Outpatient (CLI) | payer MEDICARE, OTHER ==
[2016-11-09 11:32] LABS: Anisocytosis Slight; CH 29.8; CHCM 30.9; HCT 25.7 % (39.0-53.0); HDW 2.51; HGB 7.7 gm/dL (13.0-17.5); Hypochromasia Slight; MCV 96.9 fL (80.0-100.0); Macrocytosis Slight; Mean Platelet Volume 8.2; RBC 2.65 m/uL (4.30-5.90); RDW 16.4 % (11.5-15.5); WBC 8.6 k/uL (3.8-10.6)
[2016-11-09 12:04] LABS: Calcium 8.4 mg/dL (8.4-10.2)
== END | disposition home or self-care (01) ==
LOC: LABWHC1 10:54
PROVIDERS: ATTEND Nurse Practitioner Adult Health
DX: I48.2 Chronic atrial fibrillation (principal); I50.32 Chronic diastolic (congestive) heart failure
CPT/HCPCS: 36415; 80048; 85027

== ENCOUNTER 2016-11-20 11:49 | Inpatient (IN) | payer OTHER, MEDICARE ==
--- NOTE | 2016-11-20 12:21 | ED ---
General Adult HPI - General Chief complaint: Recheck/Abnormal Lab/Rx Stated complaint: Hypotension. Sent by Time Seen by Provider: 11/20/16 11:55 Source: patient, family, RN notes reviewed Mode of arrival: wheelchair Limitations: no limitations - History of Present Illness Initial comments: This is a 76-year-old male who presents to the emergency department because he is weak and lightheaded. Patient had his blood pressure taken today at home by a visiting nurse and his blood pressure was systolic 84. Patient states he felt lightheaded but did not have any near syncopal episodes. Patient states he is been drinking water enough recently but is not eating and has lost quite a bit of weight since he had his hip surgery in July. Patient states this weakness is been since July and has been getting progressively worse. Patient also states they did find one small area of lung cancer last year on biopsy. Patient denies any chest pain difficulty breathing or shortness of breath. Patient denies any palpitations. Patient states she does have a history of atrial fibrillation. Patient denies any abdominal pain patient denies nausea vomiting or diarrhea. Patient denies any black or bloody stools. Patient denies any recent injury or fall. - Related Data Home Medications Medication Instructions Recorded Confirmed Tiotropium 18 Mcg/Puff [Spiriva] 1 cap INHALATION RT-DAILY 07/13/13 11/20/16 Albuterol Inhaler [Ventolin Hfa 1 - 2 puff INHALATION RT-Q6H PRN 10/08/14 Inhaler] Budesonide-Formot 160-4.5 Mcg 2 puff INHALATION RT-BID 10/08/14 11/20/16 [Symbicort 160-4.5 Mcg Inhaler] Folic Acid 1 mg PO DAILY 10/08/14 11/20/16 Apixaban [Eliquis] 2.5 mg PO BID 03/19/16 11/20/16 Ascorbic Acid [Vitamin C] 250 mg PO DAILY 03/19/16 11/20/16 Aspirin EC [Ecotrin Low Dose] 81 mg PO DAILY 03/19/16 11/20/16 Ferrous Sulfate [Feosol] 325 mg PO TID 03/19/16 11/20/16 Nitroglycerin Sl Tabs [Nitrostat] 0.4 mg SUBLINGUAL Q5M PRN 03/19/16 11/20/16 Polyethylene Glycol 3350 [Miralax] 17 gm PO DAILY 03/19/16 11/20/16 Potassium Chloride ER [K-Dur 20] 20 meq PO QID 03/19/16 11/20/16 Cyanocobalamin (Vitamin B-12) 1,000 mcg PO DAILY 08/09/16 11/20/16 [Vitamin B-12] Sennosides [Senna] 8.6 mg PO DAILY PRN 08/09/16 11/20/16 Simvastatin 40 mg PO HS 08/09/16 11/20/16 Lisinopril [Prinivil] 2.5 mg PO DAILY 11/20/16 11/20/16 Previous Rx's Medication Instructions Recorded Carvedilol [Coreg] 3.125 mg PO BID-W/MEALS #60 tab 10/04/16 Furosemide [Lasix] 40 mg PO BID@0900,1600 #60 tab 10/04/16 Metolazone [Zaroxolyn] 2.5 mg PO DAILY #30 tablet 10/04/16 Spironolactone [Aldactone] 25 mg PO DAILY #30 tab 10/04/16 Allergies Allergy/AdvReac Type Severity Reaction Status Date / Time No Known Allergies Allergy Verified 11/20/16 12:41 Review of Systems ROS Statement: Those systems with pertinent positive or pertinent negative responses have been documented in the HPI. ROS Other: All systems not noted in ROS Statement are negative. Past Medical History Past Medical History: Atrial Fibrillation, Coronary Artery Disease (CAD), Heart Failure, COPD, CVA/TIA, Hyperlipidemia, Hypertension, Myocardial Infarction ([place]) , Sleep Apnea/CPAP/BIPAP Additional Past Medical History / Comment(s): blood transfusion/ANEMIA, STOPPED USING HIS CPAP MACHINE YEARS AGO, CONSTIPATION, SMALL SLIDING HIATAL HERNIA AND SMALL POLYP REMOVED.,HX MILD RENAL FAILURE. Last Myocardial Infarction Date:: HAD X2 LAST ONE 2002 History of Any Multi-Drug Resistant Organisms: None Reported Past Surgical History: Appendectomy, Coronary Bypass/CABG, Orthopedic Surgery Additional Past Surgical History / Comment(s): TRIPLE BYPASS, COLONOSCOPY/EGD, R hip sx Additional Past Anesthesia/Blood Transfusion Reaction / Comment(s): CLAUSTERPHOBIA Past Psychological History: No Psychological Hx Reported Smoking Status: Former smoker Past Alcohol Use History: Occasional Past Drug Use History: None Reported - Past Family History Father Family Medical History: Cancer Additional Family Medical History / Comment(s): of pancreatic cancer Mother Family Medical History: Diabetes Mellitus Additional Family Medical History / Comment(s): AT AGE 90 WAS IN PRETTY GOOD HEALTH FROM OLD AGE Brother(s) Family Medical History: Diabetes Mellitus Additional Family Medical History / Comment(s): 2 BROTHERS HAVE DIABETES General Exam - General Exam Comments Initial Comments: GENERAL: Patient is well-developed and well-nourished. Patient is nontoxic and well- hydrated and is in mild distress. ENT: Neck is soft and supple. No significant lymphadenopathy is noted. Oropharynx is clear. Moist mucous membranes. Neck has full range of motion without eliciting any pain. EYES: The sclera were anicteric and conjunctiva were pink and moist. Extraocular movements were intact and pupils were equal round and reactive to light. Eyelids were unremarkable. PULMONARY: Unlabored respirations. Good breath sounds bilaterally. No audible rales rhonchi or wheezing was noted. CARDIOVASCULAR: There is a regular rate and rhythm without any murmurs gallops or rubs. ABDOMEN: Soft and nontender with normal bowel sounds. No palpable organomegaly was noted. There is no palpable pulsatile mass. SKIN: Skin is clear with no lesions or rashes and otherwise unremarkable. NEUROLOGIC: Patient is alert and oriented x3. Cranial nerves II through XII are grossly intact. Motor and sensory are also intact. Normal speech, volume and content. Symmetrical smile. MUSCULOSKELETAL: Normal extremities with adequate strength and full range of motion. No lower extremity swelling or edema. No calf tenderness. LYMPHATICS: No significant lymphadenopathy is noted PSYCHIATRIC: Normal psychiatric evaluation. Normal interpersonal interactions appears functionally intact in deals appropriately with others. Limitations: no limitations Course Vital Signs 11/20/16 11/20/16 11/20/16 11:52 13:01 14:40 Temperature 98.0 F 97.0 F L Pulse Rate 81 79 Pulse Rate [ 75 Sitting] Pulse Rate [ 85 Standing] Pulse Rate [ 75 Supine] Respiratory 20 17 17 Rate Blood Pressure 86/50 118/80 Blood Pressure 96/48 [Sitting] Blood Pressure 93/43 [Standing] Blood Pressure 84/43 [Supine] O2 Sat by Pulse 98 100 97 Oximetry 11/20/16 15:05 Temperature Pulse Rate 86 Pulse Rate [ Sitting] Pulse Rate [ Standing] Pulse Rate [ Supine] Respiratory 17 Rate Blood Pressure 90/54 Blood Pressure [Sitting] Blood Pressure [Standing] Blood Pressure [Supine] O2 Sat by Pulse 100 Oximetry Medical Decision Making - Medical Decision Making EKG shows atrial fibrillation at 70 bpm QRS 106 QT interval 438 QTC is 499. EKG was compared to an old EKG no new changes was noted. A right bundle branch block - Lab Data Result diagrams: 11/20/16 12:10 11/20/16 12:10 Lab Results 11/20/16 11/20/16 11/20/16 Range/Units 12:10 12:10 12:10 WBC 9.0 (3.8-10.6) k/uL RBC 2.56 L (4.30-5.90) m/uL Hgb 7.7 L (13.0-17.5) gm/dL Hct 24.3 L (39.0-53.0) % MCV 94.9 (80.0-100.0) fL MCH 30.2 (25.0-35.0) pg MCHC 31.8 (31.0-37.0) g/dL RDW 17.0 H (11.5-15.5) % Plt Count 240 (150-450) k/uL Neutrophils % 75 % Lymphocytes % 15 % Monocytes % 6 % Eosinophils % 1 % Basophils % 0 % Neutrophils # 6.7 (1.3-7.7) k/uL Lymphocytes # 1.3 (1.0-4.8) k/uL Monocytes # 0.5 (0-1.0) k/uL Eosinophils # 0.1 (0-0.7) k/uL Basophils # 0.0 (0-0.2) k/uL Hypochromasia Slight Anisocytosis Slight PT (9.0-12.0) sec INR (<1.2) APTT (22.0-30.0) sec Sodium 136 L (137-145) mmol/L Potassium 4.9 (3.5-5.1) mmol/L Chloride 105 (98-107) mmol/L Carbon Dioxide 20 L (22-30) mmol/L Anion Gap 11 mmol/L BUN 31 H (9-20) mg/dL Creatinine 1.62 H (0.66-1.25) mg/dL Est GFR (MDRD) Af Amer 50 (>60 ml/min/1.73 sqM) Est GFR (MDRD) Non-Af 42 (>60 ml/min/1.73 sqM) Glucose 103 H (74-99) mg/dL Calcium 8.6 (8.4-10.2) mg/dL Magnesium 2.1 (1.6-2.3) mg/dL Total Bilirubin 0.4 (0.2-1.3) mg/dL AST 14 L (17-59) U/L ALT 15 L (21-72) U/L Alkaline Phosphatase 39 (38-126) U/L Total Creatine Kinase <20 L (55-170) U/L CK-MB (CK-2) 0.9 (0.0-2.4) ng/mL CK-MB (CK-2) Rel Index Troponin I 0.025 (0.000-0.034) ng/mL Total Protein 6.4 (6.3-8.2) g/dL Albumin 3.2 L (3.5-5.0) g/dL Urine Color Urine Appearance (Clear) Urine pH (5.0-8.0) Ur Specific [place] (1.001-1.035) Urine Protein (Negative) Urine Glucose (UA) (Negative) Urine Ketones (Negative) Urine Blood (Negative) Urine Nitrite (Negative) Urine Bilirubin (Negative) Urine Urobilinogen (<2.0) mg/dL Ur Leukocyte Esterase (Negative) Urine RBC (0-5) /hpf Urine WBC (0-5) /hpf Urine Bacteria (None) /hpf Hyaline Casts (0-2) /lpf 11/20/16 11/20/16 Range/Units 12:10 14:30 WBC (3.8-10.6) k/uL RBC (4.30-5.90) m/uL Hgb (13.0-17.5) gm/dL Hct (39.0-53.0) % MCV (80.0-100.0) fL MCH (25.0-35.0) pg MCHC (31.0-37.0) g/dL RDW (11.5-15.5) % Plt Count (150-450) k/uL Neutrophils % % Lymphocytes % % Monocytes % % Eosinophils % % Basophils % % Neutrophils # (1.3-7.7) k/uL Lymphocytes # (1.0-4.8) k/uL Monocytes # (0-1.0) k/uL Eosinophils # (0-0.7) k/uL Basophils # (0-0.2) k/uL Hypochromasia Anisocytosis PT 11.5 (9.0-12.0) sec INR 1.2 H (<1.2) APTT 21.8 L (22.0-30.0) sec Sodium (137-145) mmol/L Potassium (3.5-5.1) mmol/L Chloride (98-107) mmol/L Carbon Dioxide (22-30) mmol/L Anion Gap mmol/L BUN (9-20) mg/dL Creatinine (0.66-1.25) mg/dL Est GFR (MDRD) Af Amer (>60 ml/min/1.73 sqM) Est GFR (MDRD) Non-Af (>60 ml/min/1.73 sqM) Glucose (74-99) mg/dL Calcium (8.4-10.2) mg/dL Magnesium (1.6-2.3) mg/dL Total Bilirubin (0.2-1.3) mg/dL AST (17-59) U/L ALT (21-72) U/L Alkaline Phosphatase (38-126) U/L Total Creatine Kinase (55-170) U/L CK-MB (CK-2) (0.0-2.4) ng/mL CK-MB (CK-2) Rel Index Troponin I (0.000-0.034) ng/mL Total Protein (6.3-8.2) g/dL Albumin (3.5-5.0) g/dL Urine Color Yellow Urine Appearance Clear (Clear) Urine pH 5.5 (5.0-8.0) Ur Specific [place] 1.007 (1.001-1.035) Urine Protein Negative (Negative) Urine Glucose (UA) Negative (Negative) Urine Ketones Negative (Negative) Urine Blood Small H (Negative) Urine Nitrite Negative (Negative) Urine Bilirubin Negative (Negative) Urine Urobilinogen <2.0 (<2.0) mg/dL Ur Leukocyte Esterase Negative (Negative) Urine RBC 11 H (0-5) /hpf Urine WBC <1 (0-5) /hpf Urine Bacteria Rare H (None) /hpf Hyaline Casts 7 H (0-2) /lpf Disposition Clinical Impression: Anemia, Renal insufficiency, Hypotension Disposition: ADMITTED IP TO THIS HOSP Referrals: Nasim Thacker DO [Primary Care Provider] - 1-2 days Time of Disposition: 15:25
[2016-11-20 12:37] LABS: Anisocytosis Slight; Basophils % (A) 0 %; CH 30.4; CHCM 32.3; Eosinophils # (A) 0.1 k/uL (0-0.7); Eosinophils % (A) 1 %; HCT 24.3 % (39.0-53.0); HDW 2.84; HGB 7.7 gm/dL (13.0-17.5); Hypochromasia Slight; Luc # (Auto) 0.28; Luc % (Auto) 3; Lymphocytes # (A) 1.3 k/uL (1.0-4.8); Lymphocytes % (A) 15 %; MCH 30.2 pg (25.0-35.0); MCHC 31.8 g/dL (31.0-37.0); MCV 94.9 fL (80.0-100.0); Mean Platelet Volume 8.4; Monocytes # (A) 0.5 k/uL (0-1.0); Monocytes % (A) 6 %; Neutrophils # (A) 6.7 k/uL (1.3-7.7); Neutrophils % (A) 75 %; RBC 2.56 m/uL (4.30-5.90); WBC (Perox) 8.83
[2016-11-20 12:47] LABS: Calcium 8.6 mg/dL (8.4-10.2); Magnesium 2.1 mg/dL (1.6-2.3); Potassium 4.9 mmol/L (3.5-5.1); Total Bilirubin 0.4 mg/dL (0.2-1.3); Total Protein 6.4 g/dL (6.3-8.2)
--- NOTE | 2016-11-20 12:48 | XR ---
EXAMINATION TYPE: XR chest 2V DATE OF EXAM: 11/20/2016 COMPARISON: Chest x-ray October 02, 2016. CT chest April 11, 2016. HISTORY: Weakness and hypoxia. TECHNIQUE: Frontal and lateral views of the chest are obtained. FINDINGS: Post CABG changes with mediastinal clips and sternal wires is redemonstrated. Underlying em physematous change is present. There is persistent small right pleural effusion. There is new patchy left basilar atelectasis and/or infiltrate. No sizable pneumothorax is seen bilaterally. The cardiac silhouette size is stable and upper limits of normal. Degenerative change bilateral acromioclavicular joints is present. IMPRESSION: Underlying emphysematous change and small right pleural effusion are redemonstrated. Ther e is new patchy left basilar atelectasis and/or infiltrate noted.
[2016-11-20 12:55] LABS: INR 1.2 (<1.2); Prothrombin Time 11.5 sec (9.0-12.0)
[2016-11-20 13:06] LABS: Creatine Kinase <20 U/L (55-170)
[2016-11-20 13:09] LABS: Partial Thromboplastin Time 21.8 sec (22.0-30.0)
[2016-11-20 13:17] LABS: Creatine Kinase MB 0.9 ng/mL (0.0-2.4); Troponin I 0.025 ng/mL (0.000-0.034)
[2016-11-20] MEDS ORDERED: SODIUM CHLORIDE 0.9% 500 ML IV STA (14:09)
[2016-11-20 14:41] LABS: Appearance,Urine Clear (Clear); Bacteria,Urine Rare /hpf; Bilirubin,Urine Negative (Negative); Glucose,Urine (UA) Negative (Negative); Ketones,Urine Negative (Negative); Leukocyte Esterase,Urine Negative (Negative); Nitrite,Urine Negative (Negative); PH, Urine 5.5 (5.0-8.0); Particle Count 1641; Protein,Urine Negative (Negative); RBC,Urine 11 /hpf (0-5); Specific Gravity,Urine 1.007 (1.001-1.035); UA Billing (MACRO vs. MICRO) MICRO; Urobilinogen,Urine <2.0 mg/dL (<2.0); WBC,Urine <1 /hpf (0-5)
[2016-11-20] MEDS ORDERED: SODIUM CHLORIDE 0.9% 1,000 ML IV ONE (15:25)
[2016-11-20 16:08] LABS: Anisocytosis Slight; Basophils % (A) 0 %; CH 30.2; CHCM 32.3; Eosinophils # (A) 0.1 k/uL (0-0.7); Eosinophils % (A) 1 %; HCT 22.7 % (39.0-53.0); HDW 2.86; HGB 7.2 gm/dL (13.0-17.5); Hypochromasia Slight; Luc # (Auto) 0.23; Luc % (Auto) 3; Lymphocytes # (A) 1.3 k/uL (1.0-4.8); Lymphocytes % (A) 15 %; MCH 29.9 pg (25.0-35.0); MCHC 31.8 g/dL (31.0-37.0); MCV 94.1 fL (80.0-100.0); Mean Platelet Volume 8.2; Monocytes # (A) 0.5 k/uL (0-1.0); Monocytes % (A) 6 %; Neutrophils # (A) 6.6 k/uL (1.3-7.7); Neutrophils % (A) 75 %; RBC 2.41 m/uL (4.30-5.90); RDW 16.7 % (11.5-15.5); WBC 8.8 k/uL (3.8-10.6); WBC (Perox) 8.98
[2016-11-20 17:43] VITALS: BMI 57.6
[2016-11-20] MEDS ORDERED: SENNOSIDES 8.6 MG TAB PO PRN (18:08)
[2016-11-20] MEDS ORDERED: NITROGLYCERIN SL TABS 0.4 MG TAB SUBLINGUAL PRN (18:08)
[2016-11-20] MEDS ORDERED: ALBUTEROL NEBULIZED 2.5 MG/3 ML INHALATION PRN (18:08)
[2016-11-20] MEDS ORDERED: ALPRAZolam 0.25 MG TAB PO PRN (18:15)
[2016-11-20] MEDS: SODIUM CHLORIDE 0.9% 1,000 ML IV SCH (20:26)
[2016-11-20] MEDS: HYDROcodone/APAP 5-325MG 1 EACH TAB PO PRN (20:26)
[2016-11-20 20:29] LABS: Glucose,Whole Blood 126 mg/dL (75-99)
[2016-11-20] MEDS: PANTOPRAZOLE 40 MG/10 ML VIAL IVP SCH (20:29)
[2016-11-20] MEDS: ATORVASTATIN 20 MG TAB PO SCH (20:34)
[2016-11-20] MEDS: POTASSIUM CHLORIDE ER 20 MEQ TAB.ER PO SCH (20:34)
[2016-11-20] MEDS: MELATONIN 3 MG TABLET PO SCH (20:34)
[2016-11-20] MEDS: SYMBICORT 160-4.5 MCG INHALER INHALATION SCH (21:14)
[2016-11-21 02:37] LABS: Anisocytosis Slight; Basophils % (A) 0 %; CH 29.1; CHCM 30.2; Eosinophils # (A) 0.1 k/uL (0-0.7); Eosinophils % (A) 2 %; HCT 21.3 % (39.0-53.0); Hypochromasia Marked; Luc # (Auto) 0.24; Luc % (Auto) 4; Lymphocytes # (A) 1.2 k/uL (1.0-4.8); Lymphocytes % (A) 19 %; MCH 30.1 pg (25.0-35.0); MCHC 31.1 g/dL (31.0-37.0); MCV 96.9 fL (80.0-100.0); Macrocytosis Slight; Monocytes # (A) 0.4 k/uL (0-1.0); Monocytes % (A) 6 %; Neutrophils # (A) 4.4 k/uL (1.3-7.7); Neutrophils % (A) 69 %; RBC 2.19 m/uL (4.30-5.90); RDW 16.3 % (11.5-15.5); WBC 6.4 k/uL (3.8-10.6); WBC (Perox) 6.74
[2016-11-21 02:45] LABS: HGB 6.6 gm/dL (13.0-17.5)
[2016-11-21] MEDS: HYDROcodone/APAP 5-325MG 1 EACH TAB PO PRN ×3 (05:30→20:28)
[2016-11-21] MEDS: CYANOCOBALAMIN 500 MCG TAB PO SCH (07:30)
[2016-11-21] MEDS: POTASSIUM CHLORIDE ER 20 MEQ TAB.ER PO SCH ×4 (07:30→21:07)
[2016-11-21] MEDS: CARVEDILOL 3.125 MG TAB PO SCH ×3 (07:30→12:03)
[2016-11-21] MEDS: PANTOPRAZOLE 40 MG/10 ML VIAL IVP SCH ×2 (07:30→21:07)
[2016-11-21] MEDS: POLYETHYLENE GLYCOL 3350 17 GM POWD.PACK PO SCH (07:31)
[2016-11-21] MEDS ORDERED: LISINOPRIL 2.5 MG TAB PO SCH (09:00)
[2016-11-21] MEDS ORDERED: SPIRONOLACTONE 25 MG TAB PO SCH (09:00)
[2016-11-21] MEDS ORDERED: METOLAZONE 2.5 MG TAB PO SCH (09:00)
[2016-11-21] MEDS ORDERED: FUROSEMIDE 40 MG TAB PO SCH (09:00)
[2016-11-21] MEDS: SYMBICORT 160-4.5 MCG INHALER INHALATION SCH ×2 (09:06→20:02)
[2016-11-21] MEDS: TIOTROPIUM 18 MCG/PUFF INHALER INHALATION SCH (09:06)
[2016-11-21 09:29] LABS: Anisocytosis Slight; Basophils % (A) 0 %; CH 28.4; CHCM 30.1; Eosinophils # (A) 0.2 k/uL (0-0.7); Eosinophils % (A) 2 %; HCT 23.3 % (39.0-53.0); HDW 2.86; HGB 7.3 gm/dL (13.0-17.5); Hypochromasia Marked; Luc # (Auto) 0.27; Luc % (Auto) 4; Lymphocytes # (A) 1.2 k/uL (1.0-4.8); Lymphocytes % (A) 19 %; MCH 29.8 pg (25.0-35.0); MCHC 31.3 g/dL (31.0-37.0); MCV 95.3 fL (80.0-100.0); Mean Platelet Volume 7.5; Monocytes # (A) 0.5 k/uL (0-1.0); Monocytes % (A) 8 %; Neutrophils # (A) 4.1 k/uL (1.3-7.7); Neutrophils % (A) 66 %; RBC 2.45 m/uL (4.30-5.90); RDW 16.9 % (11.5-15.5); WBC 6.2 k/uL (3.8-10.6); WBC (Perox) 6.74
--- NOTE | 2016-11-21 10:55 | P.CRDCN ---
History of Present Illness Consult date: 11/21/16 Consult reason: atrial fibrillation History of present illness: 76-year-old gentleman with history of coronary artery disease chronic atrial fibrillation and anemia comes in to Hospital with severe symptomatic anemia. He had a physiotherapist at home over found that he was on well sent him to Hospital where his CBC revealed profound anemia patient underwent blood transfusion in his symptoms have improved. He is an anticoagulant for his atrial fibrillation. The exact source for his blood loss is unclear. I'm going to hold anticoagulant at this time. Patient is otherwise doing well denies chest pain difficulty in breathing palpitations Review of Systems Constitutional: Denies chills. Denies fever. Patient feels fatigued and tired Eyes: Denies blurred vision. Denies pain. Ears, nose, mouth and throat: Denies headache. Denies sore throat. Cardiovascular: Denies chest pain. Denies shortness of breath. Respiratory: Denies cough. Gastrointestinal: Denies abdominal pain. Denies diarrhea. Denies nausea. Denies vomiting. Musculoskeletal: Denies myalgias. Integumentary: Denies pruritus. Denies rash. Neurological: Denies numbness. Denies weakness. Psychiatric: Denies anxiety. Denies depression. Endocrine: Denies fatigue. Denies weight change. Genitourinary: Denies burning, hematuria, frequency of urination. Hematological: acute anemia or excess bleeding. Past Medical History Past Medical History: Atrial Fibrillation, Coronary Artery Disease (CAD), Heart Failure, COPD, CVA/TIA, Hyperlipidemia, Hypertension, Myocardial Infarction ([place]) , Sleep Apnea/CPAP/BIPAP Additional Past Medical History / Comment(s): blood transfusion/ANEMIA, STOPPED USING HIS CPAP MACHINE YEARS AGO, CONSTIPATION, SMALL SLIDING HIATAL HERNIA AND SMALL POLYP REMOVED.,HX MILD RENAL FAILURE. Last Myocardial Infarction Date:: HAD X2 LAST ONE 2002 History of Any Multi-Drug Resistant Organisms: None Reported Past Surgical History: Appendectomy, Coronary Bypass/CABG, Orthopedic Surgery Additional Past Surgical History / Comment(s): TRIPLE BYPASS, COLONOSCOPY/EGD, R hip sx Additional Past Anesthesia/Blood Transfusion Reaction / Comment(s): CLAUSTERPHOBIA Past Psychological History: No Psychological Hx Reported Smoking Status: Former smoker Past Alcohol Use History: Occasional Past Drug Use History: None Reported - Past Family History Father Family Medical History: Cancer Additional Family Medical History / Comment(s): of pancreatic cancer Mother Family Medical History: Diabetes Mellitus Additional Family Medical History / Comment(s): AT AGE 90 WAS IN PRETTY GOOD HEALTH FROM OLD AGE Brother(s) Family Medical History: Diabetes Mellitus Additional Family Medical History / Comment(s): 2 BROTHERS HAVE DIABETES Medications and Allergies Home Medications Medication Instructions Recorded Confirmed Type Tiotropium 18 Mcg/Puff [Spiriva] 1 cap INHALATION RT-DAILY 07/13/13 11/20/16 History Albuterol Inhaler [Ventolin Hfa 1 - 2 puff INHALATION RT-Q6H PRN 10/08/14 History Inhaler] Budesonide-Formot 160-4.5 Mcg 2 puff INHALATION RT-BID 10/08/14 11/20/16 History [Symbicort 160-4.5 Mcg Inhaler] Folic Acid 1 mg PO DAILY 10/08/14 11/20/16 History Apixaban [Eliquis] 2.5 mg PO BID 03/19/16 11/20/16 History Ascorbic Acid [Vitamin C] 250 mg PO DAILY 03/19/16 11/20/16 History Aspirin EC [Ecotrin Low Dose] 81 mg PO DAILY 03/19/16 11/20/16 History Ferrous Sulfate [Feosol] 325 mg PO TID 03/19/16 11/20/16 History Nitroglycerin Sl Tabs [Nitrostat] 0.4 mg SUBLINGUAL Q5M PRN 03/19/16 11/20/16 History Polyethylene Glycol 3350 [Miralax] 17 gm PO DAILY 03/19/16 11/20/16 History Potassium Chloride ER [K-Dur 20] 20 meq PO QID 03/19/16 11/20/16 History Cyanocobalamin (Vitamin B-12) 1,000 mcg PO DAILY 08/09/16 11/20/16 History [Vitamin B-12] Sennosides [Senna] 8.6 mg PO DAILY PRN 08/09/16 11/20/16 History Simvastatin 40 mg PO HS 08/09/16 11/20/16 History Carvedilol [Coreg] 3.125 mg PO BID-W/MEALS #60 tab 10/04/16 11/20/16 Rx Furosemide [Lasix] 40 mg PO BID@0900,1600 #60 tab 10/04/16 11/20/16 Rx Metolazone [Zaroxolyn] 2.5 mg PO DAILY #30 tablet 10/04/16 11/20/16 Rx Spironolactone [Aldactone] 25 mg PO DAILY #30 tab 10/04/16 11/20/16 Rx Lisinopril [Prinivil] 2.5 mg PO DAILY 11/20/16 11/20/16 History Allergies Allergy/AdvReac Type Severity Reaction Status Date / Time No Known Allergies Allergy Verified 11/20/16 12:41 Physical Exam Vitals: Vital Signs Temp Pulse Pulse Pulse Pulse Pulse Resp 11/21/16 09:09 11/21/16 08:37 98.1 F 67 16 11/21/16 06:51 98.2 F 69 16 11/21/16 05:18 98.3 F 69 16 11/21/16 05:08 98 F 70 16 11/21/16 04:48 98.1 F 69 16 11/21/16 04:38 98.1 F 65 16 11/21/16 03:41 81 16 11/20/16 23:00 97.2 F L 73 16 11/20/16 19:45 97 F L 87 89 73 16 11/20/16 17:22 97.1 F L 79 18 11/20/16 16:44 74 17 11/20/16 15:05 86 17 11/20/16 14:40 79 17 11/20/16 13:01 97.0 F L 75 85 75 17 11/20/16 11:52 98.0 F 81 20 BP BP BP BP Pulse Ox 11/21/16 09:09 98 11/21/16 08:37 95/54 96 11/21/16 06:51 104/52 96 11/21/16 05:18 92/52 96 11/21/16 05:08 103/51 98 11/21/16 04:48 95/48 98 11/21/16 04:38 95/49 95 11/21/16 03:41 85/45 97 11/20/16 23:00 94/50 99 11/20/16 19:45 99/50 102/43 107/46 100 11/20/16 17:22 94/52 93 L 11/20/16 16:44 95/46 95 11/20/16 15:05 90/54 100 11/20/16 14:40 118/80 97 11/20/16 13:01 96/48 93/43 84/43 100 11/20/16 11:52 86/50 98 Intake and Output 11/20/16 11/21/16 11/21/16 22:59 06:59 14:59 Intake Total 1400 550 310 Balance 1400 550 310 Intake: Amount of Fluid Infused ( 800 ml) Intake, IV Titration 400 400 Amount Sodium Chloride 0.9% 1, 400 400 000 ml @ 50 mls/hr IV . Q20H [facility] Rx#:[id number] Oral 200 Blood Product 150 310 Rc As-1 Unit 0 310 [id number] Other: # Voids 1 1 Weight 86.5 kg 201 kg General: The patient is awake and alert, in no distress, and does not appear acutely ill. Skin: Skin is warm and dry and no rashes or lesions are noted. Eye: Pupils are equal, round and reactive to light, extra-ocular movements are intact; there is normal conjunctiva bilaterally. Ears, nose, mouth and throat: There are moist mucous membranes and no oral lesions. Neck: The neck is supple, there is no tenderness or JVD. Cardiovascular: Irregular systolic murmur at the apex Respiratory: Lungs are clear to auscultation, respirations are non-labored, breath sounds are equal. Gastrointestinal: Soft, non-distended, non-tender abdomen without masses or organomegaly noted. There is no rebound or guarding present. Bowel sounds are unremarkable. Back: There is no tenderness to palpation in the midline. There is no obvious deformity. Musculoskeletal: Normal ROM, no tenderness, There is no pedal edema. There is no calf tenderness or swelling. Extremities: Mild edema Vascular: Femoral pulse is normal. Posterior tibial pulses are normal .Dorsalis pedis is palpable. Neurological: CN II-XII intact. There are no obvious motor or sensory deficits. Speech is normal. Psychiatric: Cooperative, appropriate mood & affect, normal judgment. Results 11/21/16 09:11/20/16 12:10 Cardiac Enzymes 11/20/16 11/20/16 Range/Units 12:10 12:10 AST 14 L (17-59) U/L CK-MB (CK-2) 0.9 (0.0-2.4) ng/mL Troponin I 0.025 (0.000-0.034) ng/mL Coagulation 11/20/16 Range/Units 12:10 PT 11.5 (9.0-12.0) sec APTT 21.8 L (22.0-30.0) sec CBC 11/20/16 11/20/16 11/21/16 Range/Units 12:10 15:58 02:22 WBC 9.0 8.8 6.4 (3.8-10.6) k/uL RBC 2.56 L 2.41 L 2.19 L (4.30-5.90) m/uL Hgb 7.7 L 7.2 L 6.6 L* (13.0-17.5) gm/dL Hct 24.3 L 22.7 L 21.3 L (39.0-53.0) % Plt Count 240 243 195 (150-450) k/uL 11/21/16 Range/Units 09:17 WBC 6.2 (3.8-10.6) k/uL RBC 2.45 L (4.30-5.90) m/uL Hgb 7.3 L (13.0-17.5) gm/dL Hct 23.3 L (39.0-53.0) % Plt Count 193 (150-450) k/uL Comprehensive Metabolic Panel 11/20/16 Range/Units 12:10 Sodium 136 L (137-145) mmol/L Potassium 4.9 (3.5-5.1) mmol/L Chloride 105 (98-107) mmol/L Carbon Dioxide 20 L (22-30) mmol/L BUN 31 H (9-20) mg/dL Creatinine 1.62 H (0.66-1.25) mg/dL Glucose 103 H (74-99) mg/dL Calcium 8.6 (8.4-10.2) mg/dL AST 14 L (17-59) U/L ALT 15 L (21-72) U/L Alkaline Phosphatase 39 (38-126) U/L Total Protein 6.4 (6.3-8.2) g/dL Albumin 3.2 L (3.5-5.0) g/dL Current Medications Generic Name Dose Route Start Last Admin Trade Name Freq PRN Reason Stop Dose Admin Hydrocodone Bitart/Acetaminophen 1 each 11/20/16 19:58 11/21/16 05:30 [place] 5-325 PO 1 each Q6HR PRN Administration Moderate Pain Albuterol Sulfate 2.5 mg 11/20/16 18:08 Ventolin Nebulized INHALATION RT-Q6H PRN Shortness Of Breath Alprazolam 0.25 mg 11/20/16 18:15 Xanax PO TID PRN Anxiety Atorvastatin Calcium 20 mg 11/20/16 21:00 11/20/16 20:34 Lipitor PO 20 mg HS [facility] Administration Budesonide/Formoterol Fumarate 2 puff 11/20/16 20:00 11/21/16 09:06 Symbicort 160-4.5 Mcg Inhaler INHALATION 2 puff RT-BID [facility] Administration Carvedilol 3.125 mg 11/21/16 07:30 11/21/16 07:38 Coreg PO Not Given BID-W/MEALS [facility] Cyanocobalamin 1,000 mcg 11/21/16 09:00 11/21/16 07:30 Vitamin B-12 PO 1,000 mcg DAILY [facility] Administration Folic Acid 1 mg 11/21/16 12:00 Folic Acid PO DAILY@1200 [facility] Sodium Chloride 1,000 mls @ 50 mls/hr 11/20/16 18:15 11/20/16 20:26 Saline 0.9% IV 50 mls/hr .Q20H [facility] Administration Melatonin 3 mg 11/20/16 21:00 11/20/16 20:34 Melatonin PO 3 mg HS [facility] Administration Nitroglycerin 0.4 mg 11/20/16 18:08 Nitrostat SUBLINGUAL Q5M PRN Chest Pain Pantoprazole Sodium 40 mg 11/20/16 21:00 11/21/16 07:30 Protonix IVP 40 mg BID [facility] Administration Polyethylene Glycol 17 gm 11/21/16 09:00 11/21/16 07:31 Miralax PO 17 gm DAILY [facility] Administration Potassium Chloride 20 meq 11/20/16 22:00 11/21/16 07:30 K-Dur 20 PO 20 meq QID [facility] Administration Senna 8.6 mg 11/20/16 18:08 Senokot PO DAILY PRN Constipation Tiotropium [place] 1 puff 11/21/16 08:00 11/21/16 09:06 Spiriva INHALATION 1 puff RT-DAILY [facility] Administration Intake and Output 11/20/16 11/21/16 11/21/16 22:59 06:59 14:59 Intake Total 1400 550 310 Balance 1400 550 310 Intake: Amount of Fluid Infused ( 800 ml) Intake, IV Titration 400 400 Amount Sodium Chloride 0.9% 1, 400 400 000 ml @ 50 mls/hr IV . Q20H [facility] Rx#:[id number] Oral 200 Blood Product 150 310 Rc As-1 Unit 0 310 [id number] Other: # Voids 1 1 Weight 86.5 kg 201 kg 11/21/16 09:17 11/20/16 12:10 EKG Interpretations (text) Atrial fibrillation with nonspecific ST-T wave changes Assessment and Plan Plan: Chronic atrial fibrillation Coronary artery disease Symptomatic anemia I will stop the anticoagulant. etiology for anemia is unclear but does not seem to be related to blood loss. MCV is elevated. I will continue the Coreg and Lipitor at this time. Given the anticoagulant once he anywhere issues improve
--- NOTE | 2016-11-21 11:03 | HP ---
HISTORY AND PHYSICAL DATE OF SERVICE: 11/20/2016 CHIEF COMPLAINT: Weakness and hypotension. HISTORY OF PRESENT ILLNESS: This 76-year-old gentleman with a past medical history of multiple medical problems including atrial fibrillation, history of CAD, COPD, CVA, TIA, hypertension, history myocardial infarction, history of blood transfusion, anemia being followed by Dr. Thacker and [facility] was noted to have tiredness and weakness by the visiting nurse and the PT, OT. The patient was found to have hypotension with blood pressure in the 80s and the patient was taken to [facility] for evaluation and treatment. Patient had some dehydration. Creatinine is only 1.62. The baseline creatinine values were fluctuating between 1.06 and 1.50. The patient was also taking less p.o. food especially because of lack of appetite at this time. There is no history of fever or rigors. No history of headache, loss of consciousness or seizure. The hemoglobin is 7.2 at this time. PAST MEDICAL HISTORY: History of atrial fibrillation, history of CHF, history of CVA, TIA, hypertension, hyperlipidemia, myocardial infarction, blood transfusion because of anemia. MEDICATIONS: Medications prior to admission include medications are: 1. Spiriva 1 puff a day. 2. Aldactone 25 mg p.o. daily. 3. Simvastatin 40 mg q.h.s. 4. Senna 8.6 mg daily p.r.n. 5. K-Dur 20 mEq q.i.d. 6. MiraLAX 17 grams daily. 7. Nitrostat 0.4 sublingual q5 p.r.n. 8. Zaroxolyn 2.5 mg daily. 9. Prinivil 2.5 mg. 10.Lasix 40 mg p.o. b.i.d. 11.Folic acid 1 mg p.o. daily. 12.Iron sulfate 325 mg daily. 13.Vitamin B12, 1000 mcg p.o. daily. 14.Coreg 3.125 mg b.i.d. 15.Symbicort 160/4.5 two puffs b.i.d. 16.Ecotrin 81 mg p.o. daily. 17.Vitamin C 250 mg p.o. daily. 18.Eliquis 2.5 mg b.i.d. 19.Albuterol 1 to 2 puffs q.6 p.r.n. ALLERGIES: None. FAMILY HISTORY: History of pancreatic cancer. SOCIAL HISTORY: Previous history of smoking, no history of alcohol intake. REVIEW OF SYSTEMS: ENT: Diminished hearing and diminished vision. CARDIOVASCULAR: No angina. RESPIRATORY: As mentioned earlier. GI: No nausea. : No dysuria. NERVOUS SYSTEM: No numbness otherwise as mentioned earlier. ALLERGIES/IMMUNOLOGY: No asthma or hayfever. MUSCULOSKELETAL: As mentioned earlier. HEMATOLOGY/ONCOLOGY: As mentioned earlier anemia. ENDOCRINE: No history of diabetes mellitus and/or hypothyroidism. CONSTITUTIONAL: As mentioned earlier. DERMATOLOGY: Negative. RHEUMATOLOGY: Negative. PSYCHIATRY: As mentioned earlier. PHYSICAL EXAMINATION: The patient is alert and oriented x3. Pulse is 79, blood pressure 94/52, respiration 18, temperature 97.1, pulse ox 92% on room air. HEENT: Conjunctivae pale. Oral mucosa moist. Neck is no jugular venous distention. No carotid bruit. No lymphadenopathy. CARDIOVASCULAR: S1 and S2 muffled. Ejection systolic murmur. RESPIRATORY: Breath sounds diminished at the bases. A few scattered rhonchi, no crackles. ABDOMEN: Soft, nontender. No mass palpable. LEGS: Minimal bilateral leg edema. NERVOUS SYSTEM: Higher function as mentioned. Moves all 4 limbs. No focal motor or sensory deficit. LYMPHATICS: No lymphadenopathy of the neck, axillae or groin. SKIN: No ulcers, rashes or bleeding. LABS: WBC 9, hemoglobin 7.7. INR 1.2. Creatinine 1.62. ASSESSMENT: 1. Weakness and hypotension. 2. Dehydration. 3. Acute on chronic renal failure with baseline chronic kidney disease stage 2. 4. Anemia normocytic anemia of chronic disease, rule out acute gastrointestinal bleed. 5. Atrial fibrillation. 6. History of congestive heart failure with chronic diastolic dysfunction. 7. History of chronic obstructive pulmonary disease. 8. History of cerebrovascular accident, transient ischemic attack. 9. Hypertension. 10.Hyperlipidemia. 11.Sleep apnea. 12.History of coronary artery disease, CABG. 13.History of claustrophobia. RECOMMENDATION AND DISCUSSION: This 76-year-old gentleman who presented with multiple complex medical issues. Will monitor the patient closely. Continue the current medications. Continue symptomatic treatment. Otherwise at this time I would recommend to continue with current medications. We will monitor blood pressure closely, hemoglobin closely, GI consultation and cardiology consultation. Guarded prognosis because of multiple complex medical issues. Further recommendations to follow. Copy of dictation forwarded to Dr. Thacker who is the primary physician. See orders for further details. MMODL / IJN: [id number] /
[2016-11-21] MEDS: FOLIC ACID 1 MG TAB PO SCH (12:04)
[2016-11-21] MEDS: SODIUM CHLORIDE 0.9% 1,000 ML IV SCH (12:43)
--- NOTE | 2016-11-21 14:36 | P.CONS ---
History of Present Illness - Reason for Consult Consult date: 11/21/16 - History of Present Illness The patient is a 76-year-old male with history of coronary artery disease, chronic atrial fibrillation and anemia was admitted to the hospital with severe symptomatic anemia. He is on anticoagulant for his atrial fibrillation. The patient was evaluated by our service in May 2014 because of symptomatic anemia. An upper endoscopy showed small sliding hiatal hernia and mild gastritis and duodenitis and his colonoscopy showed a small polyp in the right colon which was snared but no large polyps or cancer. At that time his Hemoccult was negative and asked why we kept capsule endoscopy as a contingency based on his course. Other medical history includes prior myocardial infarction , congestive heart failure, CVA as well as as obstructive sleep apnea. He denied any abdominal symptoms, change in bowel habits or any overt bleeding. Review of Systems Constitutional: Denies fever, chills, sweats, weight gain, or loss. HEENT: Negative for migraines, blurred vision or loss, earaches, drainage, tinnitus, oral mucosal lesions, dysphagia, or odynophagia. Cardiac: See PI above. Respiratory: Negative for shortness of breath, hemoptysis, cough, or sputum production. Has history of obstructive sleep apnea. Gastrointestinal: See HPI for pertinent findings. Genitourinary: Negative for hematuria, urgency, frequency, polyuria, dysuria, or penile discharge. Musculoskeletal: Negative for muscle aches, swelling, arthritis, and arthralgias. Neurologic: See PI above. Endocrine: Negative for thyroid problems. Skin: Negative for rash or itching. Psychiatric: Negative history for depression and anxiety Past Medical History Past Medical History: Atrial Fibrillation, Coronary Artery Disease (CAD), Heart Failure, COPD, CVA/TIA, Hyperlipidemia, Hypertension, Myocardial Infarction ([place]) , Sleep Apnea/CPAP/BIPAP Additional Past Medical History / Comment(s): blood transfusion/ANEMIA, STOPPED USING HIS CPAP MACHINE YEARS AGO, CONSTIPATION, SMALL SLIDING HIATAL HERNIA AND SMALL POLYP REMOVED.,HX MILD RENAL FAILURE. Last Myocardial Infarction Date:: HAD X2 LAST ONE 2002 History of Any Multi-Drug Resistant Organisms: None Reported Past Surgical History: Appendectomy, Coronary Bypass/CABG, Orthopedic Surgery Additional Past Surgical History / Comment(s): TRIPLE BYPASS, COLONOSCOPY/EGD, R hip sx Additional Past Anesthesia/Blood Transfusion Reaction / Comm: CLAUSTERPHOBIA Past Psychological History: No Psychological Hx Reported Smoking Status: Former smoker Past Alcohol Use History: Occasional Past Drug Use History: None Reported - Past Family History Father Family Medical History: Cancer Additional Family Medical History / Comment(s): of pancreatic cancer Mother Family Medical History: Diabetes Mellitus Additional Family Medical History / Comment(s): AT AGE 90 WAS IN PRETTY GOOD HEALTH FROM OLD AGE Brother(s) Family Medical History: Diabetes Mellitus Additional Family Medical History / Comment(s): 2 BROTHERS HAVE DIABETES Medications and Allergies Home Medications Medication Instructions Recorded Confirmed Type Tiotropium 18 Mcg/Puff [Spiriva] 1 cap INHALATION RT-DAILY 07/13/13 11/20/16 History Albuterol Inhaler [Ventolin Hfa 1 - 2 puff INHALATION RT-Q6H PRN 10/08/14 History Inhaler] Budesonide-Formot 160-4.5 Mcg 2 puff INHALATION RT-BID 10/08/14 11/20/16 History [Symbicort 160-4.5 Mcg Inhaler] Folic Acid 1 mg PO DAILY 10/08/14 11/20/16 History Apixaban [Eliquis] 2.5 mg PO BID 03/19/16 11/20/16 History Ascorbic Acid [Vitamin C] 250 mg PO DAILY 03/19/16 11/20/16 History Aspirin EC [Ecotrin Low Dose] 81 mg PO DAILY 03/19/16 11/20/16 History Ferrous Sulfate [Feosol] 325 mg PO TID 03/19/16 11/20/16 History Nitroglycerin Sl Tabs [Nitrostat] 0.4 mg SUBLINGUAL Q5M PRN 03/19/16 11/20/16 History Polyethylene Glycol 3350 [Miralax] 17 gm PO DAILY 03/19/16 11/20/16 History Potassium Chloride ER [K-Dur 20] 20 meq PO QID 03/19/16 11/20/16 History Cyanocobalamin (Vitamin B-12) 1,000 mcg PO DAILY 08/09/16 11/20/16 History [Vitamin B-12] Sennosides [Senna] 8.6 mg PO DAILY PRN 08/09/16 11/20/16 History Simvastatin 40 mg PO HS 08/09/16 11/20/16 History Carvedilol [Coreg] 3.125 mg PO BID-W/MEALS #60 tab 10/04/16 11/20/16 Rx Furosemide [Lasix] 40 mg PO BID@0900,1600 #60 tab 10/04/16 11/20/16 Rx Metolazone [Zaroxolyn] 2.5 mg PO DAILY #30 tablet 10/04/16 11/20/16 Rx Spironolactone [Aldactone] 25 mg PO DAILY #30 tab 10/04/16 11/20/16 Rx Lisinopril [Prinivil] 2.5 mg PO DAILY 11/20/16 11/20/16 History Allergies Allergy/AdvReac Type Severity Reaction Status Date / Time No Known Allergies Allergy Verified 11/20/16 12:41 Physical Exam Vitals: Vital Signs Temp Pulse Pulse Pulse Pulse Pulse Resp 11/21/16 09:09 11/21/16 08:37 98.1 F 67 16 11/21/16 06:51 98.2 F 69 16 11/21/16 05:18 98.3 F 69 16 11/21/16 05:08 98 F 70 16 11/21/16 04:48 98.1 F 69 16 11/21/16 04:38 98.1 F 65 16 11/21/16 03:41 81 16 11/20/16 23:00 97.2 F L 73 16 11/20/16 19:45 97 F L 87 89 73 16 11/20/16 17:22 97.1 F L 79 18 11/20/16 16:44 74 17 11/20/16 15:05 86 17 11/20/16 14:40 79 17 BP BP BP BP Pulse Ox 11/21/16 09:09 98 11/21/16 08:37 95/54 96 11/21/16 06:51 104/52 96 11/21/16 05:18 92/52 96 11/21/16 05:08 103/51 98 11/21/16 04:48 95/48 98 11/21/16 04:38 95/49 95 11/21/16 03:41 85/45 97 11/20/16 23:00 94/50 99 11/20/16 19:45 99/50 102/43 107/46 100 11/20/16 17:22 94/52 93 L 11/20/16 16:44 95/46 95 11/20/16 15:05 90/54 100 11/20/16 14:40 118/80 97 Intake and Output 11/20/16 11/21/16 11/21/16 22:59 06:59 14:59 Intake Total 1400 550 710 Output Total 900 Balance 1400 550 -190 Intake: Amount of Fluid Infused ( 800 ml) Intake, IV Titration 400 400 400 Amount Sodium Chloride 0.9% 1, 400 400 400 000 ml @ 50 mls/hr IV . Q20H NIKCOLAS Rx#:[id number] Oral 200 Blood Product 150 310 Rc As-1 Unit 0 310 [id number] Output: Urine 900 Other: # Voids 1 1 Weight 86.5 kg 201 kg General appearance: The patient is alert, oriented, in no acute distress. HET: Head is normocephalic and atraumatic. Pupils are equal and reactive. Sclerae anicteric. Oropharynx is clear without lesions. Neck: Supple without lymphadenopathy. Trachea midline. Heart: Irregular. No abnormal sounds murmurs or friction rubs. Lungs: No crackles or wheezes are heard. Abdomen: Soft, nondistended with bowel sounds. No peritoneal signs. No palpable organomegaly or masses. Extremities: Normal skin color and turgor. No cyanosis, rash, ulceration, clubbing, or edema. Radial and pedal pulses are 2/4 bilaterally. Neurological: No focal deficits. Strength and sensation are grossly intact. Results CBC & Chem 7: 11/21/16 09:11/20/16 12:10 Labs: Abnormal Lab Results - Last 24 Hours (Table) 11/20/16 11/20/16 11/20/16 Range/Units 14:30 15:58 20:23 RBC 2.41 L (4.30-5.90) m/uL Hgb 7.2 L (13.0-17.5) gm/dL Hct 22.7 L (39.0-53.0) % RDW 16.7 H (11.5-15.5) % POC Glucose (mg/dL) 126 H (75-99) mg/dL Urine Blood Small H (Negative) Urine RBC 11 H (0-5) /hpf Urine Bacteria Rare H (None) /hpf Hyaline Casts 7 H (0-2) /lpf Crossmatch 11/21/16 11/21/16 11/21/16 Range/Units 02:22 02:22 09:17 RBC 2.19 L 2.45 L (4.30-5.90) m/uL Hgb 6.6 L* 7.3 L (13.0-17.5) gm/dL Hct 21.3 L 23.3 L (39.0-53.0) % RDW 16.3 H 16.9 H (11.5-15.5) % POC Glucose (mg/dL) (75-99) mg/dL Urine Blood (Negative) Urine RBC (0-5) /hpf Urine Bacteria (None) /hpf Hyaline Casts (0-2) /lpf Crossmatch See Detail Assessment and Plan Plan: 76-year-old male with symptomatic anemia but no overt bleeding. His Coumadin has been held by cardiology after admission. Prior GI workup as noted above. Consideration can be given for repeat workup including capsule endoscopy especially if we find evidence of occult blood in his stools. I will discuss with you and follow with you with interest. I did not schedule any studies at this time yet.
--- NOTE | 2016-11-21 18:15 | PN ---
PROGRESS NOTE DATE OF SERVICE: 11/21/2016 This 76-year-old gentleman who was admitted with weakness and hypotension also had some dehydration. Patient is on IV fluids. The patient also had acute renal failure. Patient's hemoglobin went down to 6.6. The creatinine was found to be 1.62. Dr. Klein has seen the patient and recommend a capsule endoscopy at this time. No chest pain or palpitation. PAST MEDICAL HISTORY: Reviewed. REVIEW OF SYSTEMS: CARDIOVASCULAR: No angina. RESPIRATORY: As mentioned earlier. GI: As mentioned earlier. : No dysuria. NERVOUS SYSTEM: As mentioned earlier. MEDICATIONS: Current medications are reviewed and include: 1. Maurice 5 mg q.6 p.r.n. 2. Ventolin. 3. Xanax 0.25 t.i.d. 4. Lipitor. 5. Symbicort 160/4.5 b.i.d. 6. Coreg 3.125 mg b.i.d. 7. Vitamin B12. 8. Folic acid. 9. Melatonin. 10.Nitrostat. 11.Protonix. 12.MiraLAX. 13.Senokot. 14.Spiriva. PHYSICAL EXAM: Patient is alert, oriented x3. Pulse is 80, blood pressure is 102/56, respiration 18, temperature 98 degrees, pulse ox 100% on room air. HEENT: Conjunctivae pale. Oral mucosa moist. Neck is no jugular venous distention. No thyroid enlargement. No carotid bruit. No lymph node enlargement. CARDIOVASCULAR SYSTEM: S1, S2 muffled. No S3, no S4. RESPIRATORY: Breath sounds diminished at the bases. No rhonchi, no crackles. ABDOMEN: Soft, nontender. No mass palpable. LEGS: No edema. No swelling. NERVOUS SYSTEM: Higher functions as mentioned. Moves all 4 limbs. No focal motor deficits. LYMPHATICS: No lymphadenopathy of the neck, axillae or groin. SKIN: No ulcers, rashes or mass. LABS: WBC 6.4, hemoglobin 6.6, and creatinine was 1.62. ASSESSMENT: 1. Weakness and hypotension possibly secondary to possibly gastrointestinal bleed and acute blood loss anemia and possibly medication induced. 2. Dehydration, present on admission. 3. Acute on chronic renal failure with baseline chronic kidney disease stage 2, possible secondary to dehydration, prerenal factors and acute tubular necrosis. 4. Anemia possibly acute gastrointestinal bleed. 5. Atrial fibrillation. 6. Was on Coumadin, off Coumadin now. 7. History of congestive heart failure with chronic diastolic dysfunction. 8. History of chronic obstructive pulmonary disease. 9. Cerebrovascular accident, transient ischemic attack. 10.Hypertension, history. 11.Hyperlipidemia. 12.History of sleep apnea. 13.History of coronary artery disease, CABG. 14.History of claustrophobia. 15.FULL CODE. RECOMMENDATION AND DISCUSSION: Recommend to continue current medications, continue with monitoring and symptomatic treatment. Otherwise, at this time transfusion has been arranged. The patient will be off Eliquis at this time. Will hold the Eliquis per cardiology recommendations. Otherwise repeat labs. No antiplatelets or NSAIDs. possible capsule endoscopy. Continue the rest of the medications. Repeat labs and monitor renal functions closely. Further recommendations to follow. Prognosis guarded. ARJUN / KATE: [id number] / ELENA
[2016-11-21] MEDS: ATORVASTATIN 20 MG TAB PO SCH (20:22)
[2016-11-21] MEDS: MELATONIN 3 MG TABLET PO SCH (21:07)
[2016-11-22 06:53] LABS: Anisocytosis Slight; Basophils % (A) 0 %; CH 29.1; CHCM 30.5; Eosinophils # (A) 0.2 k/uL (0-0.7); Eosinophils % (A) 3 %; HCT 24.7 % (39.0-53.0); HDW 2.98; HGB 7.6 gm/dL (13.0-17.5); Hypochromasia Marked; Luc # (Auto) 0.18; Luc % (Auto) 3; Lymphocytes % (A) 14 %; MCH 29.4 pg (25.0-35.0); MCHC 30.5 g/dL (31.0-37.0); MCV 96.3 fL (80.0-100.0); Macrocytosis Slight; Mean Platelet Volume 8.2; Monocytes # (A) 0.6 k/uL (0-1.0); Monocytes % (A) 8 %; Neutrophils # (A) 5.4 k/uL (1.3-7.7); Neutrophils % (A) 73 %; RBC 2.57 m/uL (4.30-5.90); RDW 17.5 % (11.5-15.5); WBC 7.3 k/uL (3.8-10.6); WBC (Perox) 7.06
[2016-11-22] MEDS: SYMBICORT 160-4.5 MCG INHALER INHALATION SCH ×2 (07:26→21:11)
[2016-11-22] MEDS: TIOTROPIUM 18 MCG/PUFF INHALER INHALATION SCH (07:27)
[2016-11-22 07:41] LABS: Anion Gap 6 mmol/L; Blood Urea Nitrogen 23 mg/dL (9-20); Carbon Dioxide 16 mmol/L (22-30); Chloride 113 mmol/L (98-107); Glucose 81 mg/dL (74-99); Non-African American GFR(MDRD) 59 (>60 ml/min/1.73 sqM); Potassium 5.8 mmol/L (3.5-5.1); Sodium 135 mmol/L (137-145)
[2016-11-22] MEDS: POLYETHYLENE GLYCOL 3350 17 GM POWD.PACK PO SCH (08:13)
[2016-11-22] MEDS: CYANOCOBALAMIN 500 MCG TAB PO SCH (08:13)
[2016-11-22] MEDS: PANTOPRAZOLE 40 MG/10 ML VIAL IVP SCH ×2 (08:13→20:43)
[2016-11-22] MEDS: POTASSIUM CHLORIDE ER 20 MEQ TAB.ER PO SCH (08:13)
[2016-11-22] MEDS: SODIUM CHLORIDE 0.9% 1,000 ML IV SCH (08:14)
[2016-11-22 12:46] LABS: Potassium 5.7 mmol/L (3.5-5.1)
[2016-11-22] MEDS: FOLIC ACID 1 MG TAB PO SCH (12:52)
[2016-11-22] MEDS: HYDROcodone/APAP 5-325MG 1 EACH TAB PO PRN (12:58)
--- NOTE | 2016-11-22 13:52 | ECHOF ---
Referral Reason:CAD MEASUREMENTS -------- HEIGHT: 182.9 cm WEIGHT: 87.1 kg BP: RVIDd: 3.4 cm (< 3.3) IVSd: 1.2 cm (0.6 - 1.1) LVIDd: 4.5 cm (3.9 - 5.3) LVPWd: 1.3 cm (0.6 - 1.1) IVSs: 1.5 cm LVIDs: 3.1 cm LVPWs: 1.6 cm LA Diam: 4.8 cm (2.7 - 3.8) LAESV Index (A-L): 55.67 ml/m Ao Diam: 3.3 cm (2.0 - 3.7) AV Cusp: 1.5 cm (1.5 - 2.6) LA Diam: 5.3 cm (2.7 - 3.8) MV EXCURSION: 23.948 mm (> 18.000) MV EF SLOPE: 78 mm/s (70 - 150) EPSS: 0.3 cm MV E Lino: 0.85 m/s MV DecT: 148 ms MV A Lino: 0.34 m/s MV E/A Ratio: 2.48 RAP: 5.00 mmHg RVSP: 63.43 mmHg FINDINGS -------- Undetermined rhythm. There is mild concentric left ventricular hypertrophy. Overall left ventricular systolic function is low-normal with, an EF between 50 - 55 %. The right ventricle is normal in size. The right ventricular septal wall is flattened in diastole and systole which is consistent with right ventricular volume and pressure overload. LA is severely dilated >40 ml/m2 The right atrial size is normal. 1.5MG OF DEFINITY UTLIZED: 2 OR MORE WALL SEGMENTS NOT VISUALIZED. There is mild aortic valve sclerosis. There is no evidence of aortic regurgitation. Mild mitral annular calcification present. Mild mitral regurgitation is present. Mild tricuspid regurgitation present. There is moderate pulmonary hypertension. The right ventricular systolic pressure, as measured by Doppler, is 63.43mmHg. There is no pulmonic regurgitation present. The aortic root size is normal. IVC Not well visulized. There is no pericardial effusion. CONCLUSIONS -------- 1. There is mild concentric left ventricular hypertrophy. 2. There is moderate pulmonary hypertension. 3. The right ventricular systolic pressure, as measured by Doppler, is 63.43mmHg. 4. There is no pulmonic regurgitation present. 5. IVC Not well visulized. 6. There is no pericardial effusion. 7. Overall left ventricular systolic function is low-normal with, an EF between 50 - 55 %. 8. The right ventricular septal wall is flattened in diastole and systole which is consistent with right ventricular volume and pressure overload. 9. LA is severely dilated >40 ml/m2 10. 1.5MG OF DEFINITY UTLIZED: 2 OR MORE WALL SEGMENTS NOT VISUALIZED. 11. There is mild aortic valve sclerosis. 12. Mild mitral annular calcification present. 13. Mild mitral regurgitation is present. 14. Mild tricuspid regurgitation present. MARKETING DATABASE ANALYST: Zara Evans RDCS
[2016-11-22] MEDS ORDERED: SODIUM POLYSTYRENE SULFONATE 15 GM/60 ML BOTTLE PO ONE (17:23)
[2016-11-22] MEDS: ATORVASTATIN 20 MG TAB PO SCH (20:43)
[2016-11-22] MEDS: MELATONIN 3 MG TABLET PO SCH (20:44)
--- NOTE | 2016-11-22 21:12 | PN ---
PROGRESS NOTE DATE OF SERVICE: 11/22/2006 This is a progress note. INTERVAL HISTORY: This 76-year-old gentleman who was admitted with hypertension, also had a suspected GI bleed. The patient had multiple evaluations previously. Eliquis is on hold at this time. Capsule endoscopy has been suggested by gastroenterology. No chest pain. No palpitations. No fever. EXAM: Alert and oriented times three. Pulse 88, blood pressure 130/60, pulse 67, not much orthostatic changes. Pulse ox 99% on room air. HEENT: Conjunctivae normal. Neck no jugular venous distention. Cardiovascular : S1, S2 muffled. Respiratory: Breath sounds diminished in the bases. A few scattered rhonchi. No crackles. ABDOMEN: Soft, nontender. No mass palpable. Legs are no edema. No swelling. central nervous system: No focal deficits. LABS: WBC 7.2, hemoglobin 7.7, potassium 5.7. ASSESSMENT: 1. Weakness and hypotension possibly secondary to gastrointestinal bleed and acute blood loss anemia with possibly medication induced as well hypotension. 2. Dehydration present on admission. 3. Acute on chronic renal failure with baseline chronic kidney disease stage 2. 4. Possibly secondary dehydration prerenal factors acute tubular necrosis. 5. Anemia possibly acute gastrointestinal bleed. 6. Atrial fibrillation proximal. 7. elaquis_is off now. 8. History of congestive heart failure with chronic diastolic dysfunction. 9. History of chronic obstructive pulmonary disease. 10.Cerebrovascular accident, transient ischemic attack. 11.History of hypertension. 12.Hyperlipidemia. 13.Sleep apnea. 14.History of coronary artery disease, coronary artery bypass grafting. 15.History of claustrophobia. 16.FULL CODE. RECOMMENDATIONS AND DISCUSSION: Recommend to continue current management, continue current medications, symptomatic treatment. Otherwise at this time I recommend continue with current medications. Continue symptomatic treatment. Monitor hemoglobin closely. Follow closely with Gastroenterology. Monitor blood pressure closely. The prognosis guarded because of multiple complex medical issues. Further recommendations to follow. MMODL / IJN: [id number] / MTDD
[2016-11-23 07:18] LABS: Anisocytosis Slight; Basophils % (A) 0 %; CH 29.4; CHCM 31.5; Eosinophils # (A) 0.1 k/uL (0-0.7); Eosinophils % (A) 2 %; HCT 23.3 % (39.0-53.0); HDW 2.86; HGB 7.2 gm/dL (13.0-17.5); Hypochromasia Slight; Luc # (Auto) 0.15; Luc % (Auto) 2; Lymphocytes # (A) 0.9 k/uL (1.0-4.8); Lymphocytes % (A) 14 %; MCHC 30.8 g/dL (31.0-37.0); Mean Platelet Volume 9.4; Monocytes # (A) 0.5 k/uL (0-1.0); Monocytes % (A) 7 %; Neutrophils # (A) 4.9 k/uL (1.3-7.7); Neutrophils % (A) 75 %; RBC 2.48 m/uL (4.30-5.90); WBC 6.5 k/uL (3.8-10.6); WBC (Perox) 6.78
[2016-11-23 07:38] LABS: Anion Gap 6 mmol/L; Blood Urea Nitrogen 18 mg/dL (9-20); Calcium 7.9 mg/dL (8.4-10.2); Carbon Dioxide 21 mmol/L (22-30); Chloride 111 mmol/L (98-107); Glucose 86 mg/dL (74-99); Non-African American GFR(MDRD) >60 (>60 ml/min/1.73 sqM); Potassium 4.9 mmol/L (3.5-5.1); Sodium 138 mmol/L (137-145)
[2016-11-23] MEDS: PANTOPRAZOLE 40 MG/10 ML VIAL IVP SCH (08:13)
[2016-11-23] MEDS: POLYETHYLENE GLYCOL 3350 17 GM POWD.PACK PO SCH (08:13)
[2016-11-23] MEDS: CYANOCOBALAMIN 500 MCG TAB PO SCH (08:13)
--- NOTE | 2016-11-23 09:59 | P.PN ---
Subjective This is a 76-year-old male with history of CAD with chronic atrial fibrillation on terminal manager anticoagulation with Eliquis, COPD, HTN, HLD and anemia. He presented to the hospital with symptomatic anemia. He underwent blood transfusion and has only showed mild improvement. He follows regularly with Dr. CB Dunaway as an outpatient. Echocardiogram done on this admission indicates low- normal EF 50-55%, severely dilated LA, mild aortic valve sclerosis, mild LVH, moderated pulmonary hypertension, RV septal wall flattened consistent with right ventricular volume and pressure overload. His eliquis has been on hold since admission. He is currently in atrial fibrillation with a controlled ventricular response. Hgb today 7.2, platelets 177, potassium 4.9, BUN 18, Cr 1.17. Objective - Vital Signs Vital signs: Vital Signs Temp 98.2 F 11/23/16 07:00 Pulse 78 11/23/16 09:37 Resp 16 11/23/16 08:00 BP 93/45 11/23/16 09:37 Pulse Ox 96 11/23/16 07:00 Intake & Output 11/22/16 11/23/16 11/23/16 18:59 06:59 18:59 Intake Total 400 640 Output Total 540 400 Balance -140 240 Weight 95 kg Intake: Intake, IV Titration 400 400 Amount Sodium Chloride 0.9% 1, 400 400 000 ml @ 50 mls/hr IV . Q20H NICKOLAS Rx#:[id number] Oral 240 Output: Urine 540 400 Other: # Voids 2 3 # Bowel Movements 1 - Exam GENERAL: Well-appearing, well-nourished and in no acute distress. NECK: Supple without JVD or thyromegaly. LUNGS: Breath sounds clear to auscultation bilaterally. Respiration equal and unlabored. No wheezes, rales or rhonchi. HEART: Irregular rate and rhythm with systolic ejection murmur at the base, no rubs or gallops. S1 and S2 heard. EXTREMITIES: Normal range of motion, no edema. No clubbing or cyanosis. Peripheral pulses intact and strong. - Labs CBC & Chem 7: 11/23/16 06:55 11/23/16 06:55 Labs: Abnormal Lab Results - Last 24 Hours (Table) 11/22/16 11/23/16 11/23/16 Range/Units 12:19 06:55 06:55 RBC 2.48 L (4.30-5.90) m/uL Hgb 7.2 L (13.0-17.5) gm/dL Hct 23.3 L (39.0-53.0) % MCHC 30.8 L (31.0-37.0) g/dL RDW 17.0 H (11.5-15.5) % Lymphocytes # 0.9 L (1.0-4.8) k/uL Sodium 133 L (137-145) mmol/L Potassium 5.7 H (3.5-5.1) mmol/L Chloride 108 H 111 H (98-107) mmol/L Carbon Dioxide 19 L 21 L (22-30) mmol/L Calcium 7.9 L (8.4-10.2) mg/dL Assessment and Plan Plan: ASSESSMENT 1. Chronic persistent atrial fibrillation 2. Stable coronary artery disease 3. Symptomatic anemia 4. HTN 5. HLD PLAN Continue to hold anticoagulation until medically appropriate. Consult hematology Dr. Reyes to evaluate source of anemia. We will continue to see this pt on an as needed basis. Thank you kindly for this consultation. Please feel free to call with any questions or concerns moving forward. Nurse Practitioner note has been reviewed, I agree with a documented findings and plan of care. Patient was seen and examined.
[2016-11-23] MEDS: FOLIC ACID 1 MG TAB PO SCH (12:24)
[2016-11-23] MEDS: SYMBICORT 160-4.5 MCG INHALER INHALATION SCH (12:46)
[2016-11-23] MEDS: TIOTROPIUM 18 MCG/PUFF INHALER INHALATION SCH (12:46)
[2016-11-23] MEDS ORDERED: FUROSEMIDE 10 MG/ML 2 ML VIAL IV ONE (14:42)
[2016-11-23 14:51] VITALS: RESP 18
[2016-11-23 15:17] VITALS: BP 106/52; PULSE 84; TEMP 97.9
--- NOTE | 2016-11-23 15:58 | P.DS ---
Providers Date of admission: 11/20/16 15:25 Attending physician: Beau Gaston Consults: 11/20/16 18:14 Consult Physician Routine Consulting Provider: Bertha Chamorro Consult Reason/Comments: anemia, anorexia-peptic ulcer? Do you want consulting provider notified?: Yes 11/20/16 18:15 Consult Physician Routine Consulting Provider: Saad aHir Consult Reason/Comments: cad Do you want consulting provider notified?: Yes 11/23/16 09:22 Consult Physician Routine Consulting Provider: Dick Reyes Consult Reason/Comments: non blood loss anemia Do you want consulting provider notified?: Yes Primary care physician: [facility] Course: This 76-year-old gentleman was admitted with weakness and hypotension and features of acute GI bleed. Patient treated with the blood transfusions. Patient also had hypotension which is also improved with the treatment. Patient also has some dehydration pressure admission. Patient was also seen by gastroneurology during the hospitalization for consult. GI recommended the outpatient capsule enteroscopy since the patient already had EGD and colonoscopy done recently. Patient improved significantly. Patient be discharged in a stable condition with guarded prognosis On exam vitals stable. S1-S2 normal. Respirator system. Prostration. Abdomen soft nontender. Final diagnosis 1. Weakness hypotension possibly secondary to acute GI bleed with acute blood loss anemia as well as secondary to medications causing hypotension. 2. Dehydration present on admission improved. 3. Acute on chronic renal failure with baseline chronic kidney disease stage II. Possibly secondary to dehydration prerenal factors and acute tubular necrosis. 4. Anemia possibly acute GI bleed. Next in 5. Atrial fibrillation proximal. 6. eloqius is off now. 7. History of CHF with chronic basilar dysfunction. 8. History of COPD. 9. History of CVA TIA. 10. History of hypertension. 7. Hyperlipidemia. 12. Sleep apnea. 13. History of CAD CABG. 14. History of claustrophobia. 15. Full code. . Plan - Discharge Summary New Discharge Prescriptions: No Action Tiotropium 18 Mcg/Puff [Spiriva] 1 cap INHALATION RT-DAILY Folic Acid 1 mg PO DAILY Albuterol Inhaler [Ventolin Hfa Inhaler] 1 - 2 puff INHALATION RT-Q6H PRN PRN Reason: Shortness Of Breath Budesonide-Formot 160-4.5 Mcg [Symbicort 160-4.5 Mcg Inhaler] 2 puff INHALATION RT-BID Aspirin EC [Ecotrin Low Dose] 81 mg PO DAILY Polyethylene Glycol 3350 [Miralax] 17 gm PO DAILY Nitroglycerin Sl Tabs [Nitrostat] 0.4 mg SUBLINGUAL Q5M PRN PRN Reason: Chest Pain Ferrous Sulfate [Feosol] 325 mg PO TID Ascorbic Acid [Vitamin C] 250 mg PO DAILY Apixaban [Eliquis] 2.5 mg PO BID Potassium Chloride ER [K-Dur 20] 20 meq PO QID Simvastatin 40 mg PO HS Cyanocobalamin (Vitamin B-12) [Vitamin B-12] 1,000 mcg PO DAILY Sennosides [Senna] 8.6 mg PO DAILY PRN PRN Reason: Constipation Carvedilol [Coreg] 3.125 mg PO BID-W/MEALS #60 tab Furosemide [Lasix] 40 mg PO BID@0900,1600 #60 tab Spironolactone [Aldactone] 25 mg PO DAILY #30 tab Metolazone [Zaroxolyn] 2.5 mg PO DAILY #30 tablet Lisinopril [Prinivil] 2.5 mg PO DAILY Discharge Medication List Tiotropium 18 Mcg/Puff [Spiriva] 1 cap INHALATION RT-DAILY 07/13/13 [History] Albuterol Inhaler [Ventolin Hfa Inhaler] 1 - 2 puff INHALATION RT-Q6H PRN [History] Budesonide-Formot 160-4.5 Mcg [Symbicort 160-4.5 Mcg Inhaler] 2 puff INHALATION RT-BID 10/08/14 [History] Folic Acid 1 mg PO DAILY 10/08/14 [History] Apixaban [Eliquis] 2.5 mg PO BID 03/19/16 [History] Ascorbic Acid [Vitamin C] 250 mg PO DAILY 03/19/16 [History] Aspirin EC [Ecotrin Low Dose] 81 mg PO DAILY 03/19/16 [History] Ferrous Sulfate [Feosol] 325 mg PO TID 03/19/16 [History] Nitroglycerin Sl Tabs [Nitrostat] 0.4 mg SUBLINGUAL Q5M PRN 03/19/16 [History] Polyethylene Glycol 3350 [Miralax] 17 gm PO DAILY 03/19/16 [History] Potassium Chloride ER [K-Dur 20] 20 meq PO QID 03/19/16 [History] Cyanocobalamin (Vitamin B-12) [Vitamin B-12] 1,000 mcg PO DAILY 08/09/16 [ History] Sennosides [Senna] 8.6 mg PO DAILY PRN 08/09/16 [History] Simvastatin 40 mg PO HS 08/09/16 [History] Carvedilol [Coreg] 3.125 mg PO BID-W/MEALS #60 tab 10/04/16 [Rx] Furosemide [Lasix] 40 mg PO BID@0900,1600 #60 tab 10/04/16 [Rx] Metolazone [Zaroxolyn] 2.5 mg PO DAILY #30 tablet 10/04/16 [Rx] Spironolactone [Aldactone] 25 mg PO DAILY #30 tab 10/04/16 [Rx] Lisinopril [Prinivil] 2.5 mg PO DAILY 11/20/16 [History] Follow up Appointment(s)/Referral(s): Dick Reyes MD [STAFF PHYSICIAN] - 1 Week Morris Klein MD [STAFF PHYSICIAN] - 1 Week (Endoscopy capsule) Shaan Brown MD [STAFF PHYSICIAN] - 1 Week ( please schedule appointment prior to DC( if hematuria persists)) Nasim Thacker DO [Primary Care Provider] - 3 Days Priyank Chamorro MD [STAFF PHYSICIAN] - 1 Week
--- NOTE | 2016-11-23 20:09 | P.PN ---
Subjective The patient is a 76-year-old male with history of coronary artery disease, chronic atrial fibrillation and anemia was admitted to the hospital with severe symptomatic anemia. He is on anticoagulant for his atrial fibrillation. The patient was evaluated by our service in May 2014 because of symptomatic anemia. An upper endoscopy showed small sliding hiatal hernia and mild gastritis and duodenitis and his colonoscopy showed a small polyp in the right colon which was snared but no large polyps or cancer. At that time his Hemoccult was negative and asked why we kept capsule endoscopy as a contingency based on his course. Other medical history includes prior myocardial infarction , congestive heart failure, CVA as well as as obstructive sleep apnea. Patient feels fine today. He denied any abdominal symptoms, change in bowel habits or any overt bleeding. Hb 7.3 after transfusing 1 unit of packed cells. Today 7.2 Objective - Vital Signs Vital signs: Vital Signs Temp 98.2 F 11/23/16 07:00 Pulse 78 11/23/16 09:37 Resp 16 11/23/16 08:00 BP 93/45 11/23/16 09:37 Pulse Ox 96 11/23/16 07:00 Intake & Output 11/22/16 11/23/16 11/23/16 18:59 06:59 18:59 Intake Total 400 640 Output Total 540 400 200 Balance -140 240 -200 Weight 95 kg Intake: Intake, IV Titration 400 400 Amount Sodium Chloride 0.9% 1, 400 400 000 ml @ 50 mls/hr IV . [facility] Rx#:[id number] Oral 240 Output: Urine 540 400 200 Other: # Voids 2 3 # Bowel Movements 1 - Exam General appearance: The patient is alert, oriented, in no acute distress. HET: Head is normocephalic and atraumatic. Pupils are equal and reactive. Sclerae anicteric. Oropharynx is clear without lesions. Neck: Supple without lymphadenopathy. Trachea midline. Heart: Irregular. No abnormal sounds murmurs or friction rubs. Lungs: No crackles or wheezes are heard. Abdomen: Soft, nondistended with bowel sounds. No peritoneal signs. No palpable organomegaly or masses. Extremities: Normal skin color and turgor. No cyanosis, rash, ulceration, clubbing, or edema. Radial and pedal pulses are 2/4 bilaterally. Neurological: No focal deficits. Strength and sensation are grossly intact. - Labs CBC & Chem 7: 11/23/16 06:55 11/23/16 06:55 Labs: Abnormal Lab Results - Last 24 Hours (Table) 11/21/16 11/23/16 11/23/16 Range/Units 02:22 06:55 06:55 RBC 2.48 L (4.30-5.90) m/uL Hgb 7.2 L (13.0-17.5) gm/dL Hct 23.3 L (39.0-53.0) % MCHC 30.8 L (31.0-37.0) g/dL RDW 17.0 H (11.5-15.5) % Lymphocytes # 0.9 L (1.0-4.8) k/uL Chloride 111 H (98-107) mmol/L Carbon Dioxide 21 L (22-30) mmol/L Calcium 7.9 L (8.4-10.2) mg/dL Crossmatch See Detail Assessment and Plan Plan: 76-year-old male with symptomatic anemia but no overt bleeding. His Coumadin has been held by cardiology after admission. Prior GI workup as noted above. Discussed with Dr. Gaston today. We will proceed and schedule for capsule endoscopy as outpatient. Further plans will then be made based on his findings.
== END 2016-11-23 18:35 | disposition home or self-care (01) | DRG 683 ==
LOC: EC 11:49 → 5MS5E 15:25
PROVIDERS: ADMIT Hospitalist; ATTEND Hospitalist
PROC: 30233N1 Transfusion of Nonautologous Red Blood Cells into Peripheral Vein, Percutaneous Approach (ICD-10-PCS; principal; 2016-11-21)
DX: N17.0 Acute kidney failure with tubular necrosis (principal); I48.1 Persistent atrial fibrillation; I27.2 Other secondary pulmonary hypertension; D62 Acute posthemorrhagic anemia; I13.0 Hypertensive heart and chronic kidney disease with heart failure and stage 1 through stage 4 chronic kidney disease, or unspecified chronic kidney disease; I50.32 Chronic diastolic (congestive) heart failure; E86.0 Dehydration; I48.2 Chronic atrial fibrillation; K92.2 Gastrointestinal hemorrhage, unspecified; I95.2 Hypotension due to drugs; J44.9 Chronic obstructive pulmonary disease, unspecified; D63.8 Anemia in other chronic diseases classified elsewhere; I25.10 Atherosclerotic heart disease of native coronary artery without angina pectoris; T50.905A Adverse effect of unspecified drugs, medicaments and biological substances, initial encounter; N18.2 Chronic kidney disease, stage 2 (mild); E78.5 Hyperlipidemia, unspecified; G47.33 Obstructive sleep apnea (adult) (pediatric); I25.2 Old myocardial infarction; I35.8 Other nonrheumatic aortic valve disorders; K29.70 Gastritis, unspecified, without bleeding; K44.9 Diaphragmatic hernia without obstruction or gangrene; H54.7 Unspecified visual loss; H91.90 Unspecified hearing loss, unspecified ear; R63.4 Abnormal weight loss; K59.00 Constipation, unspecified; K29.80 Duodenitis without bleeding; I45.10 Unspecified right bundle-branch block; F40.240 Claustrophobia; Z95.1 Presence of aortocoronary bypass graft; Z86.73 Personal history of transient ischemic attack (TIA), and cerebral infarction without residual deficits; Z79.899 Other long term (current) drug therapy; Z79.51 Long term (current) use of inhaled steroids; Z79.01 Long term (current) use of anticoagulants; Z87.891 Personal history of nicotine dependence; Z80.0 Family history of malignant neoplasm of digestive organs; Z83.3 Family history of diabetes mellitus; Z79.82 Long term (current) use of aspirin; Z90.49 Acquired absence of other specified parts of digestive tract; Z86.010 Personal history of colon polyps; Z85.118 Personal history of other malignant neoplasm of bronchus and lung; Z91.19 Patient's noncompliance with other medical treatment and regimen
CPT/HCPCS: 36415; 71020; 80048; 80051; 80053; 81001; 82550; 82553; 83735; 84484; 85025; 85610; 85730; 86850; 86900; 86901; 86920; 93005; 93306; 94640; 94760; 96360; 96361; 99285

== ENCOUNTER 2016-12-16 12:32 | Emergency (ER) | payer MEDICARE, OTHER ==
--- NOTE | 2016-12-16 13:06 | ED ---
General Adult HPI - General Chief complaint: Dizziness Stated complaint: Low Blood Pressure Time Seen by Provider: 12/16/16 12:55 Source: patient, family, RN notes reviewed Mode of arrival: wheelchair Limitations: no limitations - History of Present Illness Initial comments: Patient is a pleasant 76-year-old male presenting to the emergency Department with concerns regarding blood pressure. Patient did recently have his blood pressure medication decreased. Patient states normally his blood pressure is around 120. Patient did have his therapist called today and check blood pressure at 73. Patient does have occasional dizziness however this is somewhat chronic for him and essentially unchanged. Patient has no specific acute complaints. Patient did have right hip surgery done 5 months ago. - Related Data Home Medications Medication Instructions Recorded Confirmed Tiotropium 18 Mcg/Puff [Spiriva] 1 cap INHALATION RT-DAILY 07/13/13 12/16/16 Albuterol Inhaler [Ventolin Hfa 1 - 2 puff INHALATION RT-Q6H PRN 10/08/14 Inhaler] Budesonide-Formot 160-4.5 Mcg 2 puff INHALATION RT-BID 10/08/14 12/16/16 [Symbicort 160-4.5 Mcg Inhaler] Folic Acid 1 mg PO DAILY 10/08/14 12/16/16 Ascorbic Acid [Vitamin C] 250 mg PO DAILY 03/19/16 12/16/16 Nitroglycerin Sl Tabs [Nitrostat] 0.4 mg SUBLINGUAL Q5M PRN 03/19/16 12/16/16 Polyethylene Glycol 3350 [Miralax] 17 gm PO DAILY 03/19/16 12/16/16 Cyanocobalamin (Vitamin B-12) 1,000 mcg PO DAILY 08/09/16 12/16/16 [Vitamin B-12] Sennosides [Senna] 8.6 mg PO DAILY PRN 08/09/16 12/16/16 Simvastatin 40 mg PO HS 08/09/16 12/16/16 Carvedilol [Coreg] 1.56 mg PO BID-W/MEALS 12/16/16 12/16/16 Lisinopril [Zestril] 1.25 mg PO DAILY 12/16/16 12/16/16 Previous Rx's Medication Instructions Recorded Furosemide [Lasix] 40 mg PO DAILY #60 tab 11/23/16 Pantoprazole Sodium [Protonix] 40 mg PO DAILY #30 tablet. 11/23/16 Allergies Allergy/AdvReac Type Severity Reaction Status Date / Time No Known Allergies Allergy Verified 12/16/16 13:00 Review of Systems ROS Statement: Those systems with pertinent positive or pertinent negative responses have been documented in the HPI. ROS Other: All systems not noted in ROS Statement are negative. Constitutional: Denies: fever Eyes: Denies: eye pain ENT: Denies: ear pain Respiratory: Denies: cough Cardiovascular: Denies: chest pain Endocrine: Denies: fatigue Gastrointestinal: Denies: abdominal pain Genitourinary: Denies: dysuria Musculoskeletal: Denies: back pain Skin: Denies: rash Neurological: Denies: weakness Past Medical History Past Medical History: Atrial Fibrillation, Coronary Artery Disease (CAD), Heart Failure, COPD, CVA/TIA, Hyperlipidemia, Hypertension, Myocardial Infarction (ID) , Sleep Apnea/CPAP/BIPAP Additional Past Medical History / Comment(s): blood transfusion/ANEMIA, STOPPED USING HIS CPAP MACHINE YEARS AGO, CONSTIPATION, SMALL SLIDING HIATAL HERNIA AND SMALL POLYP REMOVED.,HX MILD RENAL FAILURE. Last Myocardial Infarction Date:: HAD X2 LAST ONE 2002 History of Any Multi-Drug Resistant Organisms: None Reported Past Surgical History: Appendectomy, Coronary Bypass/CABG, Orthopedic Surgery Additional Past Surgical History / Comment(s): TRIPLE BYPASS, COLONOSCOPY/EGD, R hip sx Additional Past Anesthesia/Blood Transfusion Reaction / Comment(s): CLAUSTERPHOBIA Past Psychological History: No Psychological Hx Reported Smoking Status: Former smoker Past Alcohol Use History: Occasional Past Drug Use History: None Reported - Past Family History Father Family Medical History: Cancer Additional Family Medical History / Comment(s): of pancreatic cancer Mother Family Medical History: Diabetes Mellitus Additional Family Medical History / Comment(s): AT AGE 90 WAS IN PRETTY GOOD HEALTH FROM OLD AGE Brother(s) Family Medical History: Diabetes Mellitus Additional Family Medical History / Comment(s): 2 BROTHERS HAVE DIABETES General Exam Limitations: no limitations General appearance: alert, in no apparent distress Head exam: Present: atraumatic Eye exam: Present: normal appearance, PERRL ENT exam: Present: normal oropharynx Neck exam: Present: normal inspection Respiratory exam: Present: normal lung sounds bilaterally Cardiovascular Exam: Present: regular rate, irregular rhythm Expanded Peripheral pulses: 0: Radial (L) (Previous arterial graft), 2+: Radial (R), Posterior Tibialis (R), Posterior Tibialis (L) GI/Abdominal exam: Present: soft. Absent: tenderness Extremities exam: Present: normal inspection. Absent: pedal edema, calf tenderness Neurological exam: Present: alert, CN II-XII intact. Absent: motor sensory deficit Expanded Motor strength exam: RUE: 5, LUE: 5, RLE: 5, LLE: 5 Psychiatric exam: Present: normal affect, normal mood Skin exam: Present: normal color Course Vital Signs 12/16/16 12/16/16 12/16/16 12:37 13:00 14:54 Temperature 97.2 F L 97.8 F Pulse Rate 90 69 Respiratory 18 17 Rate Blood Pressure 89/51 101/55 Blood Pressure 103/59 [Left Arm] Blood Pressure 105/51 [Right Arm Sitting] O2 Sat by Pulse 100 99 Oximetry 12/16/16 16:20 Temperature Pulse Rate 69 Respiratory 16 Rate Blood Pressure 102/54 Blood Pressure [Left Arm] Blood Pressure [Right Arm Sitting] O2 Sat by Pulse 100 Oximetry EKG Findings - EKG Comments: EKG Findings:: A. fib with rate of 75. QRS 140. QTc 440. QTc 491. Left axis. Right bundle branch block. Left anterior fascicular block. Q wave in lead V2 and V3. No acute ST change. Medical Decision Making - Medical Decision Making Patient reexamined and symptom-free. Blood pressure stable. Patient provided small fluid bolus. Patient requesting discharge home. Patient updated on results and need for follow-up. - Lab Data Result diagrams: 12/16/16 13:55 12/16/16 13:55 Lab Results 12/16/16 12/16/16 12/16/16 Range/Units 13:55 13:55 13:55 WBC 9.5 (3.8-10.6) k/uL RBC 3.62 L (4.30-5.90) m/uL Hgb 10.2 L D (13.0-17.5) gm/dL Hct 33.0 L (39.0-53.0) % MCV 91.0 (80.0-100.0) fL MCH 28.1 (25.0-35.0) pg MCHC 30.8 L (31.0-37.0) g/dL RDW 15.8 H (11.5-15.5) % Plt Count 255 (150-450) k/uL Neutrophils % 74 % Lymphocytes % 15 % Monocytes % 6 % Eosinophils % 2 % Basophils % 0 % Neutrophils # 7.0 (1.3-7.7) k/uL Lymphocytes # 1.4 (1.0-4.8) k/uL Monocytes # 0.6 (0-1.0) k/uL Eosinophils # 0.2 (0-0.7) k/uL Basophils # 0.0 (0-0.2) k/uL Hypochromasia Moderate PT (9.0-12.0) sec INR (<1.2) APTT (22.0-30.0) sec Sodium 134 L (137-145) mmol/L Potassium 5.2 H (3.5-5.1) mmol/L Chloride 99 (98-107) mmol/L Carbon Dioxide 25 (22-30) mmol/L Anion Gap 10 mmol/L BUN 35 H (9-20) mg/dL Creatinine 2.10 H (0.66-1.25) mg/dL Est GFR (MDRD) Af Amer 37 (>60 ml/min/1.73 sqM) Est GFR (MDRD) Non-Af 31 (>60 ml/min/1.73 sqM) Glucose 94 (74-99) mg/dL Calcium 8.7 (8.4-10.2) mg/dL Total Bilirubin 0.4 (0.2-1.3) mg/dL AST 17 (17-59) U/L ALT 18 L (21-72) U/L Alkaline Phosphatase 43 (38-126) U/L Total Creatine Kinase <20 L (55-170) U/L CK-MB (CK-2) 0.9 (0.0-2.4) ng/mL CK-MB (CK-2) Rel Index Troponin I 0.032 (0.000-0.034) ng/mL Total Protein 6.9 (6.3-8.2) g/dL Albumin 3.2 L (3.5-5.0) g/dL Urine Color Urine Appearance (Clear) Urine pH (5.0-8.0) Ur Specific [place] (1.001-1.035) Urine Protein (Negative) Urine Glucose (UA) (Negative) Urine Ketones (Negative) Urine Blood (Negative) Urine Nitrite (Negative) Urine Bilirubin (Negative) Urine Urobilinogen (<2.0) mg/dL Ur Leukocyte Esterase (Negative) Urine RBC (0-5) /hpf Urine WBC (0-5) /hpf Hyaline Casts (0-2) /lpf Urine Mucus (None) /hpf 12/16/16 12/16/16 Range/Units 13:55 15:27 WBC (3.8-10.6) k/uL RBC (4.30-5.90) m/uL Hgb (13.0-17.5) gm/dL Hct (39.0-53.0) % MCV (80.0-100.0) fL MCH (25.0-35.0) pg MCHC (31.0-37.0) g/dL RDW (11.5-15.5) % Plt Count (150-450) k/uL Neutrophils % % Lymphocytes % % Monocytes % % Eosinophils % % Basophils % % Neutrophils # (1.3-7.7) k/uL Lymphocytes # (1.0-4.8) k/uL Monocytes # (0-1.0) k/uL Eosinophils # (0-0.7) k/uL Basophils # (0-0.2) k/uL Hypochromasia PT 11.1 (9.0-12.0) sec INR 1.1 (<1.2) APTT 22.8 (22.0-30.0) sec Sodium (137-145) mmol/L Potassium (3.5-5.1) mmol/L Chloride (98-107) mmol/L Carbon Dioxide (22-30) mmol/L Anion Gap mmol/L BUN (9-20) mg/dL Creatinine (0.66-1.25) mg/dL Est GFR (MDRD) Af Amer (>60 ml/min/1.73 sqM) Est GFR (MDRD) Non-Af (>60 ml/min/1.73 sqM) Glucose (74-99) mg/dL Calcium (8.4-10.2) mg/dL Total Bilirubin (0.2-1.3) mg/dL AST (17-59) U/L ALT (21-72) U/L Alkaline Phosphatase (38-126) U/L Total Creatine Kinase (55-170) U/L CK-MB (CK-2) (0.0-2.4) ng/mL CK-MB (CK-2) Rel Index Troponin I (0.000-0.034) ng/mL Total Protein (6.3-8.2) g/dL Albumin (3.5-5.0) g/dL Urine Color Yellow Urine Appearance Clear (Clear) Urine pH 6.5 (5.0-8.0) Ur Specific [place] 1.007 (1.001-1.035) Urine Protein Trace H (Negative) Urine Glucose (UA) Negative (Negative) Urine Ketones Negative (Negative) Urine Blood Large H (Negative) Urine Nitrite Negative (Negative) Urine Bilirubin Negative (Negative) Urine Urobilinogen <2.0 (<2.0) mg/dL Ur Leukocyte Esterase Negative (Negative) Urine RBC 46 H (0-5) /hpf Urine WBC 3 (0-5) /hpf Hyaline Casts 6 H (0-2) /lpf Urine Mucus Rare H (None) /hpf - Radiology Data Radiology results: image reviewed (Chest x-ray shows chronic changes. Patchy atelectasis versus early infiltrate) Disposition Clinical Impression: Dehydration Disposition: HOME SELF-CARE Condition: Stable Instructions: Dehydration (ED) Additional Instructions: Please follow-up with your doctor this week. Return for low blood pressure, weakness, worsening symptoms or other concerns. Referrals: Nasim Thacker DO [Primary Care Provider] - 1-2 days Time of Disposition: 17:37
[2016-12-16] MEDS ORDERED: SODIUM CHLORIDE 0.9% 1,000 ML IV STA (14:11)
[2016-12-16 14:32] LABS: Calcium 8.7 mg/dL (8.4-10.2); Potassium 5.2 mmol/L (3.5-5.1); Total Bilirubin 0.4 mg/dL (0.2-1.3); Total Protein 6.9 g/dL (6.3-8.2)
[2016-12-16 14:34] LABS: Basophils % (A) 0 %; CH 27.6; CHCM 30.4; Eosinophils # (A) 0.2 k/uL (0-0.7); Eosinophils % (A) 2 %; HDW 2.68; Hypochromasia Moderate; Luc % (Auto) 3; Lymphocytes # (A) 1.4 k/uL (1.0-4.8); Lymphocytes % (A) 15 %; MCH 28.1 pg (25.0-35.0); MCHC 30.8 g/dL (31.0-37.0); Mean Platelet Volume 7.9; Monocytes # (A) 0.6 k/uL (0-1.0); Monocytes % (A) 6 %; Neutrophils % (A) 74 %; RBC 3.62 m/uL (4.30-5.90); RDW 15.8 % (11.5-15.5); WBC 9.5 k/uL (3.8-10.6); WBC (Perox) 9.63
[2016-12-16 14:37] LABS: INR 1.1 (<1.2)
--- NOTE | 2016-12-16 14:38 | XR ---
EXAMINATION TYPE: XR chest 2V DATE OF EXAM: 12/16/2016 COMPARISON: 11/20/2016 HISTORY: 76-year-old male with weakness TECHNIQUE: AP and lateral views FINDINGS: The heart is normal size. At this chronic arch calcifications. Median sternotomy wires with post-CABG clips. There is a staple line along the right upper lobe suggesting prior wedge resection. Interstit ial prominence and mild hyperinflation. Some subtle patchy peripheral right midlung opacity. No pleur al effusion. IMPRESSION: 1. Chronic changes, possible underlying COPD. There appears to be prior wedge resection in the right upper lobe. 2. Some subtle patchy atelectasis or early infiltrate at the peripheral right midlung.
[2016-12-16 14:39] LABS: HGB 10.2 gm/dL (13.0-17.5)
[2016-12-16] MEDS ORDERED: SODIUM CHLORIDE 0.9% 500 ML IV STA (14:40)
[2016-12-16 14:41] LABS: Prothrombin Time 11.1 sec (9.0-12.0)
[2016-12-16 14:42] LABS: Partial Thromboplastin Time 22.8 sec (22.0-30.0)
[2016-12-16 14:47] LABS: Creatine Kinase <20 U/L (55-170)
[2016-12-16 14:55] VITALS: TEMP 97.8
[2016-12-16 15:00] LABS: Creatine Kinase MB 0.9 ng/mL (0.0-2.4); Troponin I 0.032 ng/mL (0.000-0.034)
[2016-12-16 15:38] LABS: Appearance,Urine Clear (Clear); Bilirubin,Urine Negative (Negative); Glucose,Urine (UA) Negative (Negative); Ketones,Urine Negative (Negative); Leukocyte Esterase,Urine Negative (Negative); Mucus,Urine Rare /hpf; Nitrite,Urine Negative (Negative); PH, Urine 6.5 (5.0-8.0); Particle Count 1229; Protein,Urine Trace (Negative); RBC,Urine 46 /hpf (0-5); Specific Gravity,Urine 1.007 (1.001-1.035); UA Billing (MACRO vs. MICRO) MICRO; Urobilinogen,Urine <2.0 mg/dL (<2.0); WBC,Urine 3 /hpf (0-5)
[2016-12-16 17:33] VITALS: BP 101/51; PULSE 74; RESP 17
== END 2016-12-16 17:57 | disposition home or self-care (01) ==
LOC: EC 12:32
DX: E86.0 Dehydration (principal); I48.91 Unspecified atrial fibrillation; I25.10 Atherosclerotic heart disease of native coronary artery without angina pectoris; I11.0 Hypertensive heart disease with heart failure; I50.9 Heart failure, unspecified; J44.9 Chronic obstructive pulmonary disease, unspecified; E78.5 Hyperlipidemia, unspecified; I25.2 Old myocardial infarction; Z87.891 Personal history of nicotine dependence; Z79.01 Long term (current) use of anticoagulants; Z79.51 Long term (current) use of inhaled steroids; Z79.899 Other long term (current) drug therapy
CPT/HCPCS: 36415; 71020; 80053; 81001; 82550; 82553; 84484; 85025; 85610; 85730; 93005; 96360; 96361; 99284

== ENCOUNTER → 2017-04-12 | Outpatient (CLI) | payer MEDICARE ==
[2017-04-12 14:41] LABS: Calcium 9.4 mg/dL (8.4-10.2); Potassium 3.1 mmol/L (3.5-5.1)
== END | disposition home or self-care (01) ==
LOC: LABWHC1 13:43
PROVIDERS: ATTEND Nurse Practitioner Adult Health
DX: I50.33 Acute on chronic diastolic (congestive) heart failure (principal)
CPT/HCPCS: 36415; 80048

== ENCOUNTER → 2017-04-30 | Outpatient (CLI) | payer MEDICARE ==
[2017-04-30 14:19] LABS: HCT 38.7 % (39.0-53.0); HGB 11.9 gm/dL (13.0-17.5); MCH 30.4 pg (25.0-35.0); MCHC 30.7 g/dL (31.0-37.0); Mean Platelet Volume 7.2; Platelet Count 203 k/uL (150-450); RBC 3.91 m/uL (4.30-5.90); WBC 6.4 k/uL (3.8-10.6)
[2017-04-30 14:40] LABS: Calcium 8.9 mg/dL (8.4-10.2); Potassium 3.2 mmol/L (3.5-5.1)
== END | disposition home or self-care (01) ==
LOC: LABWHC1 13:53
PROVIDERS: ATTEND Internal Medicine Interventional Cardiology
DX: I25.10 Atherosclerotic heart disease of native coronary artery without angina pectoris (principal); I50.9 Heart failure, unspecified
CPT/HCPCS: 36415; 80048; 85027

== ENCOUNTER → 2017-05-20 | Outpatient (CLI) | payer MEDICARE ==
[2017-05-20 12:27] LABS: Calcium 9.1 mg/dL (8.4-10.2)
[2017-05-20 12:44] LABS: Potassium 2.9 mmol/L (3.5-5.1)
== END | disposition home or self-care (01) ==
LOC: LABWHC1 11:26
PROVIDERS: ATTEND Internal Medicine Interventional Cardiology
DX: E87.6 Hypokalemia (principal)
CPT/HCPCS: 36415; 80048

== ENCOUNTER → 2017-05-31 | Outpatient (CLI) | payer MEDICARE ==
[2017-05-31 12:23] LABS: Calcium 8.9 mg/dL (8.4-10.2); Potassium 4.7 mmol/L (3.5-5.1)
== END | disposition home or self-care (01) ==
LOC: LABWHC1 11:20
PROVIDERS: ATTEND Internal Medicine Interventional Cardiology
DX: I48.2 Chronic atrial fibrillation (principal)
CPT/HCPCS: 36415; 80048

== ENCOUNTER 2017-11-09 19:09 | Emergency (ER) | payer MEDICARE, OTHER ==
[2017-11-09 19:15] VITALS: TEMP 98.1
[2017-11-09] MEDS ORDERED: SODIUM CHLORIDE 0.9% 1,000 ML IV STA (19:32)
--- NOTE | 2017-11-09 19:36 | ED ---
General Adult HPI - General Chief complaint: Weakness Stated complaint: lethargic Time Seen by Provider: 11/09/17 19:27 Source: patient, family, RN notes reviewed Mode of arrival: wheelchair Limitations: no limitations - History of Present Illness Initial comments: Patient is a pleasant 77-year-old male presenting to the emergency Department with complaints of drowsiness. Patient has been sleeping more more over the past couple of weeks. Patient states he feels like he can sleep all the time. Patient does get good sleep when he is sleeping. Patient does not wake up short of breath or choking. has not noticed abnormal sleep patterns. No confusion. No weakness. Patient has been somewhat fatigued. Patient did have similar symptoms many years ago associated with anemia. Patient denies any bleeding or lack tarry stools. - Related Data Home Medications Medication Instructions Recorded Confirmed Tiotropium 18 Mcg/Puff [Spiriva] 1 cap INHALATION RT-DAILY 07/13/13 11/09/17 Albuterol Inhaler [Ventolin Hfa 1 - 2 puff INHALATION RT-Q6H PRN 10/08/14 Inhaler] Budesonide-Formot 160-4.5 Mcg 2 puff INHALATION RT-BID 10/08/14 11/09/17 [Symbicort 160-4.5 Mcg Inhaler] Folic Acid 1 mg PO DAILY 10/08/14 11/09/17 Ascorbic Acid [Vitamin C] 250 mg PO DAILY 03/19/16 11/09/17 Nitroglycerin Sl Tabs [Nitrostat] 0.4 mg SUBLINGUAL Q5M PRN 03/19/16 11/09/17 Simvastatin 40 mg PO HS 08/09/16 11/09/17 Carvedilol [Coreg] 6.25 mg PO BID 11/09/17 11/09/17 Colchicine 0.6 mg PO DAILY PRN 11/09/17 11/09/17 Cyanocobalamin 100mcg 100 mcg PO DAILY 11/09/17 11/09/17 Docusate [Colace] 100 mg PO BID 11/09/17 11/09/17 Ferrous Sulfate [Iron] 325 mg PO TID 11/09/17 11/09/17 Ipratropium-Albuterol Nebulize 3 ml INHALATION RT-QID 11/09/17 11/09/17 [Duoneb 0.5 mg-3 mg/3 ml Soln] Isosorbide Mononitrate [Isosorbide 30 mg PO DAILY 11/09/17 11/09/17 Mononitrate ER] Metolazone [Zaroxolyn] 2.5 mg PO DAILY 11/09/17 11/09/17 Potassium Chloride [Klor-Con 20] 20 meq PO QID 11/09/17 11/09/17 Tamsulosin [Flomax] 0.4 mg PO DAILY 11/09/17 11/09/17 Previous Rx's Medication Instructions Recorded Furosemide [Lasix] 40 mg PO DAILY #60 tab 11/23/16 Pantoprazole Sodium [Protonix] 40 mg PO DAILY #30 tablet. 11/23/16 Allergies Allergy/AdvReac Type Severity Reaction Status Date / Time No Known Allergies Allergy Verified 11/09/17 19:39 Review of Systems ROS Statement: Those systems with pertinent positive or pertinent negative responses have been documented in the HPI. ROS Other: All systems not noted in ROS Statement are negative. Constitutional: Denies: fever Eyes: Denies: eye pain ENT: Denies: ear pain Respiratory: Denies: cough Cardiovascular: Denies: chest pain Endocrine: Reports: fatigue Gastrointestinal: Denies: abdominal pain Genitourinary: Denies: dysuria Musculoskeletal: Denies: back pain Skin: Denies: rash Neurological: Denies: headache Past Medical History Past Medical History: Atrial Fibrillation, Coronary Artery Disease (CAD), Heart Failure, COPD, CVA/TIA, Hyperlipidemia, Hypertension, Myocardial Infarction ([place]) , Sleep Apnea/CPAP/BIPAP Additional Past Medical History / Comment(s): blood transfusion/ANEMIA, STOPPED USING HIS CPAP MACHINE YEARS AGO, CONSTIPATION, SMALL SLIDING HIATAL HERNIA AND SMALL POLYP REMOVED.,HX MILD RENAL FAILURE. Last Myocardial Infarction Date:: HAD X2 LAST ONE 2002 History of Any Multi-Drug Resistant Organisms: None Reported Past Surgical History: Appendectomy, Coronary Bypass/CABG, Orthopedic Surgery Additional Past Surgical History / Comment(s): TRIPLE BYPASS, COLONOSCOPY/EGD, R hip sx Additional Past Anesthesia/Blood Transfusion Reaction / Comment(s): CLAUSTERPHOBIA Past Psychological History: No Psychological Hx Reported Smoking Status: Former smoker Past Alcohol Use History: None Reported Past Drug Use History: None Reported - Past Family History Father Family Medical History: Cancer Additional Family Medical History / Comment(s): of pancreatic cancer Mother Family Medical History: Diabetes Mellitus Additional Family Medical History / Comment(s): AT AGE 90 WAS IN PRETTY GOOD HEALTH FROM OLD AGE Brother(s) Family Medical History: Diabetes Mellitus Additional Family Medical History / Comment(s): 2 BROTHERS HAVE DIABETES General Exam Limitations: no limitations General appearance: alert, in no apparent distress Head exam: Present: atraumatic Eye exam: Present: normal appearance, PERRL, EOMI. Absent: nystagmus ENT exam: Present: normal oropharynx Neck exam: Present: normal inspection. Absent: tenderness, meningismus Respiratory exam: Present: normal lung sounds bilaterally Cardiovascular Exam: Present: regular rate, irregular rhythm GI/Abdominal exam: Present: soft. Absent: distended, tenderness, guarding, rebound, rigid, pulsatile mass Extremities exam: Present: normal inspection, full ROM. Absent: pedal edema, calf tenderness Neurological exam: Present: alert, oriented X3, CN II-XII intact. Absent: motor sensory deficit Expanded Neurological exam: Present: protecting the airway Patient oriented to: Present: person, place, time Speech: Present: fluid speech Cranial nerves: EOM's Intact: Normal, Facial Sensation: Normal Sensory exam: Upper Extremity Light Touch: Normal, Lower Extremity Light Touch: Normal Motor strength exam: RUE: 5, LUE: 5, RLE: 5, LLE: 5 Eye Response: (4) open spontaneously Motor Response: (6) obeys commands Verbal Response: (5) oriented Psychiatric exam: Present: normal affect, normal mood Skin exam: Present: normal color Course Vital Signs 11/09/17 11/09/17 19:12 21:02 Temperature 98.1 F Pulse Rate 69 61 Respiratory 18 16 Rate Blood Pressure 137/61 111/59 O2 Sat by Pulse 95 96 Oximetry EKG Findings - EKG Comments: EKG Findings:: A. fib with rate of 64. QRS 152. QT 458. QTC 472. [place] indeterminate. Right bundle branch block. No acute ST change. Medical Decision Making - Medical Decision Making Patient reevaluated and resting comfortably in bed. Patient is alert and appropriate. Patient and family updated on results and need for follow-up. - Lab Data Result diagrams: 11/09/17 19:55 11/09/17 19:55 Lab Results 11/09/17 11/09/17 11/09/17 Range/Units 19:55 19:55 19:55 WBC 7.2 (3.8-10.6) k/uL RBC 4.11 L (4.30-5.90) m/uL Hgb 12.8 L (13.0-17.5) gm/dL Hct 40.1 (39.0-53.0) % MCV 97.5 (80.0-100.0) fL MCH 31.2 (25.0-35.0) pg MCHC 32.0 (31.0-37.0) g/dL RDW 14.0 (11.5-15.5) % Plt Count 178 (150-450) k/uL Neutrophils % 68 % Lymphocytes % 19 % Monocytes % 6 % Eosinophils % 4 % Basophils % 0 % Neutrophils # 4.9 (1.3-7.7) k/uL Lymphocytes # 1.4 (1.0-4.8) k/uL Monocytes # 0.5 (0-1.0) k/uL Eosinophils # 0.3 (0-0.7) k/uL Basophils # 0.0 (0-0.2) k/uL PT (9.0-12.0) sec INR (<1.2) APTT (22.0-30.0) sec Sodium 140 (137-145) mmol/L Potassium 4.4 (3.5-5.1) mmol/L Chloride 107 (98-107) mmol/L Carbon Dioxide 26 (22-30) mmol/L Anion Gap 7 mmol/L BUN 25 H (9-20) mg/dL Creatinine 1.20 (0.66-1.25) mg/dL Est GFR (CKD-EPI)AfAm 67 (>60 ml/min/1.73 sqM) Est GFR (CKD-EPI)NonAf 58 (>60 ml/min/1.73 sqM) Glucose 115 H (74-99) mg/dL Plasma Lactic Acid [place] (0.7-2.0) mmol/L Calcium 8.6 (8.4-10.2) mg/dL Magnesium 2.0 (1.6-2.3) mg/dL Total Bilirubin 0.8 (0.2-1.3) mg/dL AST 21 (17-59) U/L ALT 23 (21-72) U/L Alkaline Phosphatase 33 L (38-126) U/L Total Creatine Kinase <20 L (55-170) U/L CK-MB (CK-2) 0.8 (0.0-2.4) ng/mL CK-MB (CK-2) Rel Index Troponin I 0.026 (0.000-0.034) ng/mL Total Protein 6.4 (6.3-8.2) g/dL Albumin 3.1 L (3.5-5.0) g/dL TSH 1.820 (0.465-4.680) mIU/L Free T4 1.27 (0.78-2.19) ng/dL Free T3 pg/mL 3.7 (2.8-5.3) pg/ml Urine Color Urine Appearance (Clear) Urine pH (5.0-8.0) Ur Specific [place] (1.001-1.035) Urine Protein (Negative) Urine Glucose (UA) (Negative) Urine Ketones (Negative) Urine Blood (Negative) Urine Nitrite (Negative) Urine Bilirubin (Negative) Urine Urobilinogen (<2.0) mg/dL Ur Leukocyte Esterase (Negative) 11/09/17 11/09/17 11/09/17 Range/Units 19:55 19:55 21:39 WBC (3.8-10.6) k/uL RBC (4.30-5.90) m/uL Hgb (13.0-17.5) gm/dL Hct (39.0-53.0) % MCV (80.0-100.0) fL MCH (25.0-35.0) pg MCHC (31.0-37.0) g/dL RDW (11.5-15.5) % Plt Count (150-450) k/uL Neutrophils % % Lymphocytes % % Monocytes % % Eosinophils % % Basophils % % Neutrophils # (1.3-7.7) k/uL Lymphocytes # (1.0-4.8) k/uL Monocytes # (0-1.0) k/uL Eosinophils # (0-0.7) k/uL Basophils # (0-0.2) k/uL PT 11.6 (9.0-12.0) sec INR 1.2 H (<1.2) APTT 24.2 (22.0-30.0) sec Sodium (137-145) mmol/L Potassium (3.5-5.1) mmol/L Chloride (98-107) mmol/L Carbon Dioxide (22-30) mmol/L Anion Gap mmol/L BUN (9-20) mg/dL Creatinine (0.66-1.25) mg/dL Est GFR (CKD-EPI)AfAm (>60 ml/min/1.73 sqM) Est GFR (CKD-EPI)NonAf (>60 ml/min/1.73 sqM) Glucose (74-99) mg/dL Plasma Lactic Acid [place] 1.3 (0.7-2.0) mmol/L Calcium (8.4-10.2) mg/dL Magnesium (1.6-2.3) mg/dL Total Bilirubin (0.2-1.3) mg/dL AST (17-59) U/L ALT (21-72) U/L Alkaline Phosphatase (38-126) U/L Total Creatine Kinase (55-170) U/L CK-MB (CK-2) (0.0-2.4) ng/mL CK-MB (CK-2) Rel Index Troponin I (0.000-0.034) ng/mL Total Protein (6.3-8.2) g/dL Albumin (3.5-5.0) g/dL TSH (0.465-4.680) mIU/L Free T4 (0.78-2.19) ng/dL Free T3 pg/mL (2.8-5.3) pg/ml Urine Color Yellow Urine Appearance Clear (Clear) Urine pH 6.5 (5.0-8.0) Ur Specific [place] 1.017 (1.001-1.035) Urine Protein Negative (Negative) Urine Glucose (UA) Negative (Negative) Urine Ketones Negative (Negative) Urine Blood Negative (Negative) Urine Nitrite Negative (Negative) Urine Bilirubin Negative (Negative) Urine Urobilinogen 2.0 (<2.0) mg/dL Ur Leukocyte Esterase Negative (Negative) - Radiology Data Radiology results: report reviewed (Computed tomography scan of the brain shows atrophy and chronic small vessel ischemia. No acute intercranial abnormality.) , image reviewed (Chest x-ray shows COPD, no acute process) Disposition Clinical Impression: Fatigue Disposition: HOME SELF-CARE Condition: Stable Instructions: Fatigue (ED) Additional Instructions: Please follow-up with primary care physician in the next day or 2 for recheck. Please also consider following up with your grab operator. Return for confusion , weakness, fevers, worsening or change in symptoms or other concerns. Is patient prescribed a controlled substance at d/c from ED?: No Referrals: [facility],Clinic [Primary Care Provider] - 1-2 days Time of Disposition: 22:00
[2017-11-09 20:13] LABS: Basophils % (A) 0 %; Eosinophils # (A) 0.3 k/uL (0-0.7); Eosinophils % (A) 4 %; HCT 40.1 % (39.0-53.0); HGB 12.8 gm/dL (13.0-17.5); Lymphocytes # (A) 1.4 k/uL (1.0-4.8); Lymphocytes % (A) 19 %; MCH 31.2 pg (25.0-35.0); MCV 97.5 fL (80.0-100.0); Mean Platelet Volume 7.5; Monocytes # (A) 0.5 k/uL (0-1.0); Monocytes % (A) 6 %; Neutrophils # (A) 4.9 k/uL (1.3-7.7); Neutrophils % (A) 68 %; Platelet Count 178 k/uL (150-450); RBC 4.11 m/uL (4.30-5.90); WBC 7.2 k/uL (3.8-10.6)
[2017-11-09 20:14] LABS: INR 1.2 (<1.2); Partial Thromboplastin Time 24.2 sec (22.0-30.0); Prothrombin Time 11.6 sec (9.0-12.0)
[2017-11-09 20:15] LABS: Albumin 3.1 g/dL (3.5-5.0); Calcium 8.6 mg/dL (8.4-10.2); Potassium 4.4 mmol/L (3.5-5.1); Total Bilirubin 0.8 mg/dL (0.2-1.3); Total Protein 6.4 g/dL (6.3-8.2)
[2017-11-09 20:19] LABS: Creatine Kinase <20 U/L (55-170)
[2017-11-09 20:31] LABS: T4, Free (Free Thyroxine) 1.27 ng/dL (0.78-2.19)
[2017-11-09 20:32] LABS: Creatine Kinase MB 0.8 ng/mL (0.0-2.4); Troponin I 0.026 ng/mL (0.000-0.034)
--- NOTE | 2017-11-09 20:46 | XR ---
EXAMINATION TYPE: XR chest 2V DATE OF EXAM: 11/09/2017 COMPARISON: 12/16/2016 HISTORY: 77-year-old male with weakness TECHNIQUE: PA and lateral views FINDINGS: The heart is normal size. Aorta within normal limits. Some stranding and scarring redemonstrated julio pheral right upper lobe. Diffuse interstitial prominence is unchanged. Hyperinflation with flattening of the hemidiaphragms. Some patchy density at the right apex is also unchanged suggesting scarring. IMPRESSION: COPD with chronic parenchymal changes. No acute process seen.
--- NOTE | 2017-11-09 21:03 | CT ---
EXAMINATION TYPE: CT brain wo con DATE OF EXAM: 11/09/2017 COMPARISON: None HISTORY: 77-year-old male with WEAKNESS TECHNIQUE: Examination was done in axial plane without intravenous contrast. Coronal and sagittal r econstructions performed. CT DLP: 1153 mGycm Automated exposure control for dose reduction was used. FINDINGS: There is no evidence of acute intracranial hemorrhage, acute ischemic changes, mass, mass-effect, or extra-axial fluid collection. There is no effacement of cerebral sulci or basal subarachnoid cister ns. There is no hydrocephalus. There is no midline shift. Grover-white matter distinction is preserv ed. Moderate generalized supratentorial volume loss. Mild patchy periventricular white matter hypodensity suggests changes of chronic small vessel ischemic disease. Paranasal sinuses and mastoid air cells well pneumatized. Orbits and globes are intact. IMPRESSION: Mild generalized atrophy and changes of chronic small vessel ischemic disease. No acute intracranial abnormality seen.
[2017-11-09 21:04] VITALS: RESP 16
[2017-11-09 21:46] LABS: Appearance,Urine Clear (Clear); Bilirubin,Urine Negative (Negative); Blood,Urine Negative (Negative); Color,Urine Yellow; Glucose,Urine (UA) Negative (Negative); Ketones,Urine Negative (Negative); Leukocyte Esterase,Urine Negative (Negative); Nitrite,Urine Negative (Negative); PH, Urine 6.5 (5.0-8.0); Protein,Urine Negative (Negative); Specific Gravity,Urine 1.017 (1.001-1.035)
[2017-11-09 22:10] VITALS: BP 125/58; PULSE 55
== END 2017-11-09 22:11 | disposition home or self-care (01) ==
LOC: EC 19:09
DX: R53.83 Other fatigue (principal); R40.0 Somnolence; I48.91 Unspecified atrial fibrillation; I25.10 Atherosclerotic heart disease of native coronary artery without angina pectoris; J44.9 Chronic obstructive pulmonary disease, unspecified; I11.0 Hypertensive heart disease with heart failure; I50.9 Heart failure, unspecified; I25.2 Old myocardial infarction; D64.9 Anemia, unspecified; Z86.73 Personal history of transient ischemic attack (TIA), and cerebral infarction without residual deficits; Z87.891 Personal history of nicotine dependence; Z95.1 Presence of aortocoronary bypass graft; Z90.49 Acquired absence of other specified parts of digestive tract; Z98.890 Other specified postprocedural states; Z79.51 Long term (current) use of inhaled steroids; Z79.899 Other long term (current) drug therapy
CPT/HCPCS: 36415; 70450; 71046; 80053; 81003; 82550; 82553; 83605; 83735; 84439; 84443; 84481; 84484; 85025; 85610; 85730; 96360; 96361; 99285

== ENCOUNTER → 2017-12-13 | Outpatient (CLI) | payer MEDICARE, OTHER ==
[2017-12-13 13:46] LABS: Calcium 8.4 mg/dL (8.4-10.2); Potassium 4.1 mmol/L (3.5-5.1)
== END | disposition home or self-care (01) ==
LOC: LABWHC1 11:31
PROVIDERS: ATTEND Internal Medicine Interventional Cardiology
DX: I50.32 Chronic diastolic (congestive) heart failure (principal)
CPT/HCPCS: 36415; 80048

== ENCOUNTER 2018-01-01 14:33 | Emergency (ER) | payer MEDICARE, OTHER ==
[2018-01-01 14:45] VITALS: RESP 18; TEMP 97.8
--- NOTE | 2018-01-01 14:45 | ED ---
Fall HPI - General Stated Complaint: Fall Time Seen by Provider: 01/01/18 14:38 - History of Present Illness Initial Comments: This is a 77-year-old male the ER for evaluation. Patient has presented today for evaluation of pain after falling. Patient a fall from standing mechanical fall. Patient is on blood thinners. Patient does have left upper extremity abrasion some knee pain he did hit his head denies headache or neck pain. No loss of consciousness noted. MD Complaint: fall -: hour(s) (1) Fall From: standing When Fall Occurred: unsure Fall Witnessed: no Place Fall Occurred: home Loss of Consciousness: none Prolonged Down Time?: no Symptoms Prior to Fall: none Location: head Location - Extremities: Left: Arm, Knee Severity: moderate Severity scale (1-10): 1 Quality: burning Context: tripped/slipped Associated Symptoms: denies - Related Data Home Medications Medication Instructions Recorded Confirmed Tiotropium 18 Mcg/Puff [Spiriva] 1 cap INHALATION RT-DAILY 07/13/13 01/01/18 Albuterol Inhaler [Ventolin Hfa 1 - 2 puff INHALATION RT-Q6H PRN 10/08/14 Inhaler] Budesonide-Formot 160-4.5 Mcg 2 puff INHALATION RT-BID 10/08/14 01/01/18 [Symbicort 160-4.5 Mcg Inhaler] Folic Acid 1 mg PO DAILY 10/08/14 01/01/18 Ascorbic Acid [Vitamin C] 250 mg PO DAILY 03/19/16 01/01/18 Nitroglycerin Sl Tabs [Nitrostat] 0.4 mg SUBLINGUAL Q5M PRN 03/19/16 01/01/18 Carvedilol [Coreg] 6.25 mg PO BID 11/09/17 01/01/18 Colchicine 0.6 mg PO DAILY PRN 11/09/17 01/01/18 Cyanocobalamin 100mcg 100 mcg PO DAILY 11/09/17 01/01/18 Docusate [Colace] 100 mg PO BID 11/09/17 01/01/18 Ferrous Sulfate [Iron] 325 mg PO TID 11/09/17 01/01/18 Ipratropium-Albuterol Nebulize 3 ml INHALATION RT-QID 11/09/17 01/01/18 [Duoneb 0.5 mg-3 mg/3 ml Soln] Isosorbide Mononitrate [Isosorbide 30 mg PO BID 11/09/17 01/01/18 Mononitrate ER] Tamsulosin [Flomax] 0.4 mg PO DAILY 11/09/17 01/01/18 Simvastatin [Zocor] 20 mg PO HS 01/01/18 01/01/18 Previous Rx's Medication Instructions Recorded Furosemide [Lasix] 40 mg PO DAILY #60 tab 11/23/16 Pantoprazole Sodium [Protonix] 40 mg PO DAILY #30 tablet. 11/23/16 Allergies Allergy/AdvReac Type Severity Reaction Status Date / Time No Known Allergies Allergy Verified 01/01/18 15:36 Review of Systems ROS Statement: Those systems with pertinent positive or pertinent negative responses have been documented in the HPI. ROS Other: All systems not noted in ROS Statement are negative. Past Medical History Past Medical History: Atrial Fibrillation, Coronary Artery Disease (CAD), Heart Failure, COPD, CVA/TIA, Hyperlipidemia, Hypertension, Myocardial Infarction ([place]) , Sleep Apnea/CPAP/BIPAP Additional Past Medical History / Comment(s): blood transfusion/ANEMIA, STOPPED USING HIS CPAP MACHINE YEARS AGO, CONSTIPATION, SMALL SLIDING HIATAL HERNIA AND SMALL POLYP REMOVED.,HX MILD RENAL FAILURE. Last Myocardial Infarction Date:: HAD X2 LAST ONE 2002 History of Any Multi-Drug Resistant Organisms: None Reported Past Surgical History: Appendectomy, Coronary Bypass/CABG, Orthopedic Surgery Additional Past Surgical History / Comment(s): TRIPLE BYPASS, COLONOSCOPY/EGD, R hip sx Additional Past Anesthesia/Blood Transfusion Reaction / Comment(s): CLAUSTERPHOBIA Past Psychological History: No Psychological Hx Reported Smoking Status: Former smoker Past Alcohol Use History: None Reported Past Drug Use History: None Reported - Past Family History Father Family Medical History: Cancer Additional Family Medical History / Comment(s): of pancreatic cancer Mother Family Medical History: Diabetes Mellitus Additional Family Medical History / Comment(s): AT AGE 90 WAS IN PRETTY GOOD HEALTH FROM OLD AGE Brother(s) Family Medical History: Diabetes Mellitus Additional Family Medical History / Comment(s): 2 BROTHERS HAVE DIABETES General Exam - General Exam Comments Initial Comments: Left upper extremity abrasion General appearance: alert, in no apparent distress Head exam: Present: atraumatic, normocephalic, normal inspection Eye exam: Present: normal appearance, PERRL, EOMI. Absent: scleral icterus, conjunctival injection, periorbital swelling ENT exam: Present: normal exam, mucous membranes moist Neck exam: Present: normal inspection. Absent: tenderness, meningismus, lymphadenopathy Respiratory exam: Present: normal lung sounds bilaterally. Absent: respiratory distress, wheezes, rales, rhonchi, stridor Cardiovascular Exam: Present: regular rate, normal rhythm, normal heart sounds. Absent: systolic murmur, diastolic murmur, rubs, gallop, clicks GI/Abdominal exam: Present: soft, normal bowel sounds. Absent: distended, tenderness, guarding, rebound, rigid Extremities exam: Present: normal inspection, full ROM, normal capillary refill. Absent: tenderness, pedal edema, joint swelling, calf tenderness Back exam: Present: normal inspection Neurological exam: Present: alert, oriented X3, CN II-XII intact Psychiatric exam: Present: normal affect, normal mood Skin exam: Present: warm, dry, intact, normal color. Absent: rash Course Vital Signs 01/01/18 14:38 Temperature 97.8 F Pulse Rate 82 Respiratory 18 Rate Blood Pressure 122/78 O2 Sat by Pulse 96 Oximetry - Reevaluation(s) Reevaluation #1: 01/01/18 16:00 Medical record is reviewed Reevaluation #2: 01/01/18 16:00 Abrasion is cleaned and bandaged Medical Decision Making - Medical Decision Making 77 male the ER status post fall. Patient has left upper extremity abrasion CT brain C-spine and x-rays are negative for traumatic injury - Radiology Data Radiology results: report reviewed (ET brain C-spine x-ray elbow knee are negative for acute disease), image reviewed Disposition Clinical Impression: Fall, Head injury, Abrasion Disposition: ADMITTED IP TO THIS [facility] Condition: Good Instructions: Fall Prevention for Older Adults (ED) Is patient prescribed a controlled substance at d/c from ED?: No Referrals: [facility],Clinic [Primary Care Provider] - 1-2 days
--- NOTE | 2018-01-01 15:39 | CT ---
EXAMINATION TYPE: CT brain [place] wo con DATE OF EXAM: 01/01/2018 COMPARISON: Brain 11/09/2017 HISTORY: 77-year-old male with pain after Fall. CT DLP: 976 mGycm Automated exposure control for dose reduction was used. Technique: Examination of the head was done in axial plane without intravenous contrast. Coronal and sagittal reconstructions performed. CT of the cervical spine was obtained in axial plane without intravenous injection of contrast mater ial. Coronal and sagittal reformatted images were obtained from the axial views for evaluation of f ractures, spinal alignment and canal. FINDINGS: Head: There is no evidence of acute intracranial hemorrhage, acute ischemic changes, mass, mass-effect, or extra-axial fluid collection. There is no effacement of cerebral sulci or basal subarachnoid cister ns. There is no hydrocephalus. There is no midline shift. Grover-white matter distinction is preserv ed. Redemonstrated mild generalized supratentorial volume loss. Mild patchy periventricular white matter hypodensities. Paranasal sinuses and mastoid air cells are well pneumatized. Orbits and globes are intact. No calvar ial fracture. Cervical spine: Emphysematous change visualized upper lungs. No craniocervical junction abnormality, predental space widening, or prevertebral soft tissue swellin g. Preserved alignment of the cervical spine. No acute fracture identified. Posterior discussed effect complexes are present at C3-C4 and C5-C6 mildly narrowing the spinal canal . Additional facet arthropathy particularly on the right. At C3-C4, changes result in moderate right and mild left neural foraminal stenosis. At C5-C6, changes result in mild to moderate right neuroforaminal stenosis. Sagittal and coronal reformatted images confirm above findings. COMBINED IMPRESSION: 1. Stable brain with mild atrophy and changes of chronic small vessel ischemic disease. No acute intr acranial abnormality seen. 2. Mild to moderate multilevel spondylotic changes of the cervical spine. No acute fracture or malali gnment.
--- NOTE | 2018-01-01 15:55 | XR ---
EXAMINATION TYPE: XR elbow complete 3 views LT, XR knee complete 3 views LT DATE OF EXAM: 01/01/2018 COMPARISON: NONE HISTORY: 77-year-old male pain after fall today FINDINGS: Left elbow: Some bony spurring is present at both medial and lateral epicondyles. Surgical clips along the proxim al volar forearm. Vascular calcifications underlying diabetes and her chronic kidney disease. No elbo w joint effusion. No acute fracture, subluxation, or dislocation seen. Left knee: Mild tricompartmental degenerative spurring. Extensor mechanism is intact. No significant knee joint effusion. Atherosclerotic arterial calcifications posteriorly. No acute fracture, subluxation, or dis location. IMPRESSION: Left elbow and knee without acute osseous abnormality seen. There are bony changes at the elbow sugge sting chronic common extensor and flexor tendinopathy. Mild tricompartmental degenerative spurring at the knee.
[2018-01-01 16:34] VITALS: BP 117/82; PULSE 68
== END 2018-01-01 16:33 | disposition other institution (70) ==
LOC: EC 14:33
DX: S40.812A Abrasion of left upper arm, initial encounter (principal); S09.90XA Unspecified injury of head, initial encounter; M25.562 Pain in left knee; J44.9 Chronic obstructive pulmonary disease, unspecified; I48.91 Unspecified atrial fibrillation; E78.5 Hyperlipidemia, unspecified; I25.10 Atherosclerotic heart disease of native coronary artery without angina pectoris; I11.0 Hypertensive heart disease with heart failure; I50.9 Heart failure, unspecified; D64.9 Anemia, unspecified; I25.2 Old myocardial infarction; Z87.891 Personal history of nicotine dependence; Z79.01 Long term (current) use of anticoagulants; Z79.51 Long term (current) use of inhaled steroids; Z79.899 Other long term (current) drug therapy; Z95.1 Presence of aortocoronary bypass graft; W01.0XXA Fall on same level from slipping, tripping and stumbling without subsequent striking against object, initial encounter; Y92.838 Other recreation area as the place of occurrence of the external cause
CPT/HCPCS: 70450; 72125; 99285

== ENCOUNTER 2018-01-04 14:21 | Emergency (ER) | payer OTHER, MEDICARE ==
[2018-01-04 14:48] VITALS: BP 100/50; PULSE 68; RESP 18; TEMP 98.5
--- NOTE | 2018-01-04 15:35 | ED ---
Wound/Laceration HPI - General Chief Complaint: Wound/Laceration Stated Complaint: Fall, bleeding Elbow, on blood thiners Time Seen by Provider: 01/04/18 14:59 Source: patient, RN notes reviewed Mode of arrival: wheelchair Limitations: no limitations - History of Present Illness Initial Comments: This is a 77-year-old male who presents to the emergency department with chief complaint of bleeding wound. Patient was seen here on January 01 after a fall. Patient sustained a skin tear to the left elbow. He states that since Wednesday it has continued to bleed. He is on Eliquis. Patient is accompanied by his . She states that patient did not take his dose of Eliquis this morning. She states that she was able to buy Coban and bandage it up. She states that he has been continuing to bleed through the bandages. He does have a follow-up appointment scheduled with his primary care provider on . Patient denies any fevers or chills, chest pain or shortness of breath, abdominal pain, nausea or vomiting. - Related Data Home Medications Medication Instructions Recorded Confirmed Tiotropium 18 Mcg/Puff [Spiriva] 1 cap INHALATION RT-DAILY 07/13/13 01/01/18 Albuterol Inhaler [Ventolin Hfa 1 - 2 puff INHALATION RT-Q6H PRN 10/08/14 Inhaler] Budesonide-Formot 160-4.5 Mcg 2 puff INHALATION RT-BID 10/08/14 01/01/18 [Symbicort 160-4.5 Mcg Inhaler] Folic Acid 1 mg PO DAILY 10/08/14 01/01/18 Ascorbic Acid [Vitamin C] 250 mg PO DAILY 03/19/16 01/01/18 Nitroglycerin Sl Tabs [Nitrostat] 0.4 mg SUBLINGUAL Q5M PRN 03/19/16 01/01/18 Carvedilol [Coreg] 6.25 mg PO BID 11/09/17 01/01/18 Colchicine 0.6 mg PO DAILY PRN 11/09/17 01/01/18 Cyanocobalamin 100mcg 100 mcg PO DAILY 11/09/17 01/01/18 Docusate [Colace] 100 mg PO BID 11/09/17 01/01/18 Ferrous Sulfate [Iron] 325 mg PO TID 11/09/17 01/01/18 Ipratropium-Albuterol Nebulize 3 ml INHALATION RT-QID 11/09/17 01/01/18 [Duoneb 0.5 mg-3 mg/3 ml Soln] Isosorbide Mononitrate [Isosorbide 30 mg PO BID 11/09/17 01/01/18 Mononitrate ER] Tamsulosin [Flomax] 0.4 mg PO DAILY 11/09/17 01/01/18 Simvastatin [Zocor] 20 mg PO HS 01/01/18 01/01/18 Previous Rx's Medication Instructions Recorded Furosemide [Lasix] 40 mg PO DAILY #60 tab 11/23/16 Pantoprazole Sodium [Protonix] 40 mg PO DAILY #30 tablet. 11/23/16 Cephalexin [Keflex] 500 mg PO Q12HR #10 cap 01/04/18 Allergies Allergy/AdvReac Type Severity Reaction Status Date / Time No Known Allergies Allergy Verified 01/04/18 14:48 Review of Systems ROS Statement: Those systems with pertinent positive or pertinent negative responses have been documented in the HPI. ROS Other: All systems not noted in ROS Statement are negative. Past Medical History Past Medical History: Atrial Fibrillation, Coronary Artery Disease (CAD), Heart Failure, COPD, CVA/TIA, Hyperlipidemia, Hypertension, Myocardial Infarction ([place]) , Sleep Apnea/CPAP/BIPAP Additional Past Medical History / Comment(s): blood transfusion/ANEMIA, STOPPED USING HIS CPAP MACHINE YEARS AGO, CONSTIPATION, SMALL SLIDING HIATAL HERNIA AND SMALL POLYP REMOVED.,HX MILD RENAL FAILURE. Last Myocardial Infarction Date:: HAD X2 LAST ONE 2002 History of Any Multi-Drug Resistant Organisms: None Reported Past Surgical History: Appendectomy, Coronary Bypass/CABG, Orthopedic Surgery Additional Past Surgical History / Comment(s): TRIPLE BYPASS, COLONOSCOPY/EGD, R hip sx Additional Past Anesthesia/Blood Transfusion Reaction / Comment(s): CLAUSTERPHOBIA Past Psychological History: No Psychological Hx Reported Smoking Status: Former smoker Past Alcohol Use History: None Reported Past Drug Use History: None Reported - Past Family History Father Family Medical History: Cancer Additional Family Medical History / Comment(s): of pancreatic cancer Mother Family Medical History: Diabetes Mellitus Additional Family Medical History / Comment(s): AT AGE 90 WAS IN PRETTY GOOD HEALTH FROM OLD AGE Brother(s) Family Medical History: Diabetes Mellitus Additional Family Medical History / Comment(s): 2 BROTHERS HAVE DIABETES General Exam - General Exam Comments Initial Comments: General: Awake and alert, well-developed; in no apparent distress. is at bedside. HEENT: Head atraumatic, normocephalic. Pupils are equal, round and reactive to light. Extraocular movements intact. Oropharynx moist without erythema or exudate. Neck: Supple. Normal ROM. Cardiovascular: Regular rate and rhythm. No murmurs, rubs or gallops. Chest symmetrical. Respiratory: Lungs clear to auscultation bilaterally. No wheezes, rales or rhonchi. Normal respiratory effort with no use of accessory muscles. Musculoskeletal: Generalized ecchymosis of the left forearm. Patient does have normal range of motion of the left upper extremity. Sensation is intact. Radial pulses are 2+ equal and palpable bilaterally. Skin: Linear skin tear with underlying swelling to the left elbow. No evidence of infection, no significant erythema or warmth. Minimal bleeding is noted. Neurological: Alert and oriented x3. CN II-XII grossly intact. Speech is fluent and answers are appropriate. No focal neuro deficits. Psychiatric: Normal mood and affect. No overt signs of depression or anxiety noted. Limitations: no limitations Course Vital Signs 01/04/18 14:44 Temperature 98.5 F Pulse Rate 68 Respiratory 18 Rate Blood Pressure 100/50 O2 Sat by Pulse 95 Oximetry Medical Decision Making - Medical Decision Making This is a 77-year-old male who presents to the emergency department with chief complaint of wound bleeding. Patient sustained a skin tear on Wednesday after a fall. The wound was bandaged and patient was discharged home. Patient is currently on Eliquis. Since Wednesday the wound has continued to bleed. On physical examination, there is a linear skin tear to the left elbow with underlying swelling. No evidence of infection. Patient is neurovascularly intact. The wound was cleansed and a new bandage was placed using Coban. Recommended that patient's primary care provider reevaluate the wound on during his follow-up appointment. Patient will be started on a short course of Keflex in case of any infection, although there are no significant signs at this time. It is difficult to assess for surrounding erythema as the entire left forearm is diffusely purple with ecchymosis. Patient's vital signs are stable and he is in no acute distress. He will be discharged home at this time. He is in agreement with plan and voices understanding. All questions have been answered. Disposition Clinical Impression: Skin tear Disposition: HOME SELF-CARE Condition: Good Instructions: Abrasion (ED), Skin Tear (ED) Additional Instructions: As discussed, please have your primary care provider reevaluate the abrasion during follow-up appointment on . Please take medications as prescribed. Please follow up with primary care provider within 1-2 days. Return to emergency department if symptoms should worsen or any concerns arise. Prescriptions: Cephalexin [Keflex] 500 mg PO Q12HR #10 cap Is patient prescribed a controlled substance at d/c from ED?: No Referrals: [facility],Clinic [Primary Care Provider] - 1-2 days Time of Disposition: 15:37
== END 2018-01-04 15:48 | disposition home or self-care (01) ==
LOC: EC 14:21
DX: S51.012D Laceration without foreign body of left elbow, subsequent encounter (principal); I48.91 Unspecified atrial fibrillation; I25.10 Atherosclerotic heart disease of native coronary artery without angina pectoris; I11.0 Hypertensive heart disease with heart failure; I50.9 Heart failure, unspecified; J44.9 Chronic obstructive pulmonary disease, unspecified; E78.5 Hyperlipidemia, unspecified; I25.2 Old myocardial infarction; G47.30 Sleep apnea, unspecified; Z99.89 Dependence on other enabling machines and devices; Z86.73 Personal history of transient ischemic attack (TIA), and cerebral infarction without residual deficits; Z87.448 Personal history of other diseases of urinary system; Z79.51 Long term (current) use of inhaled steroids; Z79.899 Other long term (current) drug therapy; Z79.01 Long term (current) use of anticoagulants; Z95.1 Presence of aortocoronary bypass graft; W19.XXXD Unspecified fall, subsequent encounter
CPT/HCPCS: 99282

== ENCOUNTER 2018-01-12 20:43 | Emergency (ER) | payer MEDICARE, OTHER ==
[2018-01-12 20:53] VITALS: BP 140/62; PULSE 82; RESP 18; TEMP 98.3
--- NOTE | 2018-01-12 21:08 | ED ---
Upper Extremity HPI - General Chief Complaint: Extremity Injury, Upper Stated Complaint: Poss Blood clot Time Seen by Provider: 01/12/18 20:54 Source: patient Mode of arrival: wheelchair Limitations: no limitations - History of Present Illness Initial Comments: 77-year-old male past medical history of atrial fibrillation, [place], lung cancer presenting today for hard bump on hands b/l. Pt states that he feel last week, he was evaluated here where all imaging was negative he was put on antibiotics for abrasion of the left forearm. Pt had significant bruising following the fall because he is on eliquis. Pt states that the abrasion is healing well, there is no surrounding erythema, drainage, warmth or increasing pain. Pt states that he was examining his hands with his grandkids who were looking at the bruising when they noticed hard knot like small bump mid hand in line with index fingers, pt denies any pain, warmth or redness of the area but he was concerned that the bump were blood clots and presented for evaluation. Pt states that he does miss a dose of his eliquis. Patient denies any recent fever , chills, shortness of breath, chest pain, back pain, calf pain, abdominal pain , nausea or vomiting, numbness or tingling, dysuria or hematuria, constipation or diarrhea, headaches or visual changes, or any other complaints. Pt vs within acceptable limits upon arrival at the ER this evening, pt appears well. - Related Data Home Medications Medication Instructions Recorded Confirmed Tiotropium 18 Mcg/Puff [Spiriva] 1 cap INHALATION RT-DAILY 07/13/13 01/04/18 Albuterol Inhaler [Ventolin Hfa 1 - 2 puff INHALATION RT-Q6H PRN 10/08/14 Inhaler] Budesonide-Formot 160-4.5 Mcg 2 puff INHALATION RT-BID 10/08/14 01/04/18 [Symbicort 160-4.5 Mcg Inhaler] Folic Acid 1 mg PO DAILY 10/08/14 01/04/18 Ascorbic Acid [Vitamin C] 250 mg PO DAILY 03/19/16 01/04/18 Nitroglycerin Sl Tabs [Nitrostat] 0.4 mg SUBLINGUAL Q5M PRN 03/19/16 01/04/18 Carvedilol [Coreg] 6.25 mg PO BID 11/09/17 01/04/18 Colchicine 0.6 mg PO DAILY PRN 11/09/17 01/04/18 Cyanocobalamin 100mcg 100 mcg PO DAILY 11/09/17 01/04/18 Docusate [Colace] 100 mg PO BID 11/09/17 01/04/18 Ferrous Sulfate [Iron] 325 mg PO TID 11/09/17 01/04/18 Ipratropium-Albuterol Nebulize 3 ml INHALATION RT-QID 11/09/17 01/04/18 [Duoneb 0.5 mg-3 mg/3 ml Soln] Isosorbide Mononitrate [Isosorbide 30 mg PO BID 11/09/17 01/04/18 Mononitrate ER] Tamsulosin [Flomax] 0.4 mg PO DAILY 11/09/17 01/04/18 Simvastatin [Zocor] 20 mg PO HS 01/01/18 01/04/18 Apixaban [Eliquis] 2.5 mg PO BID 01/04/18 01/04/18 Previous Rx's Medication Instructions Recorded Furosemide [Lasix] 40 mg PO DAILY #60 tab 11/23/16 Pantoprazole Sodium [Protonix] 40 mg PO DAILY #30 tablet. 11/23/16 Cephalexin [Keflex] 500 mg PO Q12HR #10 cap 01/04/18 Allergies Allergy/AdvReac Type Severity Reaction Status Date / Time No Known Allergies Allergy Verified 01/12/18 20:53 Review of Systems ROS Statement: Those systems with pertinent positive or pertinent negative responses have been documented in the HPI. ROS Other: All systems not noted in ROS Statement are negative. Constitutional: Denies: fever, chills, night sweats ENT: Denies: ear pain, throat pain Respiratory: Denies: cough, dyspnea Cardiovascular: Denies: chest pain, palpitations Endocrine: Denies: fatigue Gastrointestinal: Denies: abdominal pain, nausea, vomiting, diarrhea, constipation Genitourinary: Denies: as per HPI, urgency, dysuria Musculoskeletal: Denies: back pain Skin: Reports: as per HPI (knot like small bumps on the hands b/l in same position, they are mid hand in line with the index finger) Neurological: Denies: as per HPI, headache, weakness, numbness, paresthesias, confusion Psychiatric: Denies: anxiety, depression Past Medical History Past Medical History: Atrial Fibrillation, Coronary Artery Disease (CAD), Heart Failure, COPD, CVA/TIA, Hyperlipidemia, Hypertension, Myocardial Infarction ([place]) , Sleep Apnea/CPAP/BIPAP Additional Past Medical History / Comment(s): blood transfusion/ANEMIA, STOPPED USING HIS CPAP MACHINE YEARS AGO, CONSTIPATION, SMALL SLIDING HIATAL HERNIA AND SMALL POLYP REMOVED.,HX MILD RENAL FAILURE. Last Myocardial Infarction Date:: HAD X2 LAST ONE 2002 History of Any Multi-Drug Resistant Organisms: None Reported Past Surgical History: Appendectomy, Coronary Bypass/CABG, Orthopedic Surgery Additional Past Surgical History / Comment(s): TRIPLE BYPASS, COLONOSCOPY/EGD, R hip sx Additional Past Anesthesia/Blood Transfusion Reaction / Comment(s): CLAUSTERPHOBIA Past Psychological History: No Psychological Hx Reported Smoking Status: Former smoker Past Alcohol Use History: None Reported Past Drug Use History: None Reported - Past Family History Father Family Medical History: Cancer Additional Family Medical History / Comment(s): of pancreatic cancer Mother Family Medical History: Diabetes Mellitus Additional Family Medical History / Comment(s): AT AGE 90 WAS IN PRETTY GOOD HEALTH FROM OLD AGE Brother(s) Family Medical History: Diabetes Mellitus Additional Family Medical History / Comment(s): 2 BROTHERS HAVE DIABETES General Exam - General Exam Comments Initial Comments: General: The patient is awake and alert, in no distress, and does not appear acutely ill. Eye: Pupils are equal, round and reactive to light, extra-ocular movements are intact. No nystagmus. There is normal conjunctiva bilaterally. No signs of icterus. Ears, nose, mouth and throat: There are moist mucous membranes and no oral lesions. Neck: The neck is supple, there is no tenderness or JVD. Cardiovascular: There is a regular rate and rhythm. No murmur, rub or gallop is appreciated. Respiratory: Lungs are clear to auscultation, respirations are non-labored, breath sounds are equal. No wheezes, stridor, rales, or rhonchi. Musculoskeletal: Normal inspection of the hands b/l no swelling, erythema, ecchymosis, warmth or masses noted. Hands are equal bilaterally Normal ROM at the MCP, DIP and PIP joints, no tenderness to palpation of the hands. Patient has palpable flexor tendon of the index fingers, when palpated there is flexion of the index finger (pt states that is that bump he feels) Strength 5/5. Sensation intact. Radial and ulnar pulses equal bilaterally 2+. Neurological: A&O x 3. CN II-XII intact, There are no obvious motor or sensory deficits. Coordination appears grossly intact. Speech is normal. Skin: Skin is warm and dry and no rashes or lesions are noted. Psychiatric: Cooperative, appropriate mood & affect, normal judgment. Limitations: no limitations Course Vital Signs 01/12/18 20:48 Temperature 98.3 F Pulse Rate 82 Respiratory 18 Rate Blood Pressure 140/62 O2 Sat by Pulse 99 Oximetry Medical Decision Making - Medical Decision Making Knots that patient stated that he was palpating in the hands bilaterally were his flexor tendons, there is flexion of the index finger with palpation of the tendon. Patient denies any other associated symptoms. I explained all findings with patient stating that this is a normal physical exam finding. He verbalized understanding. There are no signs of superficial vasculitis at this time. There is no hand swelling concerning for deep venous thrombosis. There is no pain along the deep venous systems of the arms bilaterally. Patient is complaining of this eliquis. Patient does have bruising along the left upper extremity, patient states this resolving. The abrasion of the left foot proximal forearm appears to be healing well, no signs of secondary infection at this time. Patient is on an antibiotic for infection prophylaxis. At this time I feel patient exam findings are normal, patient denies any other complaints. Patient is stable for discharge. All findings were discussed with Dr. Rajput who agrees with impression and plan. Patient was discharged in stable condition. Patient was instructed to follow-up with primary care provider for any additional concerns. Disposition Clinical Impression: Ecchymosis on examination, Normal exam Disposition: HOME SELF-CARE Condition: Good Instructions: Ecchymosis (ED) Additional Instructions: Please follow-up with family doctor in the next 2 days for any additional concerns. Please return to emergency room if the symptoms increase or worsen or for any other concerns. Is patient prescribed a controlled substance at d/c from ED?: No Referrals: [facility],Clinic [Primary Care Provider] - 1-2 days Time of Disposition: 21:07
== END 2018-01-12 21:15 | disposition home or self-care (01) ==
LOC: EC 20:43
DX: S40.022D Contusion of left upper arm, subsequent encounter (principal); S90.812D Abrasion, left foot, subsequent encounter; S50.812D Abrasion of left forearm, subsequent encounter; R22.31 Localized swelling, mass and lump, right upper limb; I48.91 Unspecified atrial fibrillation; E78.5 Hyperlipidemia, unspecified; I11.0 Hypertensive heart disease with heart failure; I50.9 Heart failure, unspecified; I25.10 Atherosclerotic heart disease of native coronary artery without angina pectoris; I25.2 Old myocardial infarction; J44.9 Chronic obstructive pulmonary disease, unspecified; D64.9 Anemia, unspecified; Z87.891 Personal history of nicotine dependence; Z79.01 Long term (current) use of anticoagulants; Z79.51 Long term (current) use of inhaled steroids; Z79.899 Other long term (current) drug therapy; Z86.73 Personal history of transient ischemic attack (TIA), and cerebral infarction without residual deficits; Z87.19 Personal history of other diseases of the digestive system; Z95.1 Presence of aortocoronary bypass graft; W19.XXXD Unspecified fall, subsequent encounter
CPT/HCPCS: 99283

== ENCOUNTER 2018-03-22 17:14 | Inpatient (IN) | payer OTHER, MEDICARE ==
[2018-03-22] MEDS ORDERED: IPRATROPIUM-ALBUTEROL 3 ML NEB INHALATION STA (17:35)
[2018-03-22] MEDS ORDERED: FUROSEMIDE 10 MG/ML 4 ML VIAL IV STA (17:35)
--- NOTE | 2018-03-22 17:41 | ED ---
SOB HPI - General Chief Complaint: Shortness of Breath Stated Complaint: RAYMON, SWELLING IN FEET Time Seen by Provider: 03/22/18 17:30 Source: patient Mode of arrival: wheelchair Limitations: no limitations - History of Present Illness Initial Comments: This is a 77-year-old male history of A. fib CHF COPD who presents today with complaints of shortness of breath which is been going on for past for 5 days getting progressively worse he has exertional dyspnea orthopnea no overt fevers chills or sweats. He states his feet are getting more swollen. He has gained weight from about 200 pounds at 215 pounds in that period time. He denies any chest pain at this time but states he did have some pain to the left chest 3/10 severity but he points to his left costochondral margin. no fevers again no chills no phlegm production when he coughs. Complaint: shortness of breath - Related Data Home Medications Medication Instructions Recorded Confirmed Tiotropium 18 Mcg/Puff [Spiriva] 1 cap INHALATION RT-DAILY 07/13/13 03/22/18 Albuterol Inhaler [Ventolin Hfa 1 - 2 puff INHALATION RT-Q6H PRN 10/08/14 Inhaler] Budesonide-Formot 160-4.5 Mcg 2 puff INHALATION RT-BID 10/08/14 03/22/18 [Symbicort 160-4.5 Mcg Inhaler] Folic Acid 1 mg PO DAILY 10/08/14 03/22/18 Nitroglycerin Sl Tabs [Nitrostat] 0.4 mg SUBLINGUAL Q5M PRN 03/19/16 03/22/18 Cyanocobalamin 100mcg 100 mcg PO DAILY 11/09/17 03/22/18 Docusate [Colace] 100 mg PO BID 11/09/17 03/22/18 Ferrous Sulfate [Iron] 325 mg PO TID 11/09/17 03/22/18 Isosorbide Mononitrate [Isosorbide 30 mg PO BID 11/09/17 03/22/18 Mononitrate ER] Tamsulosin [Flomax] 0.4 mg PO DAILY 11/09/17 03/22/18 Simvastatin [Zocor] 20 mg PO HS 01/01/18 03/22/18 Apixaban [Eliquis] 2.5 mg PO BID 01/04/18 03/22/18 Ascorbic Acid [Vitamin C] 250 mg PO DAILY 03/22/18 03/22/18 Carvedilol [Coreg] 12.5 mg PO BID 03/22/18 03/22/18 Furosemide [Lasix] 80 mg PO BID 03/22/18 03/22/18 Ipratropium-Albuterol Nebulize 3 ml INHALATION RT-QID 03/22/18 03/22/18 [Duoneb 0.5 mg-3 mg/3 ml Soln] Sennosides [Senna] 8.6 mg PO BID PRN 03/22/18 03/22/18 Warfarin [Coumadin] 5 mg PO HS 03/22/18 03/22/18 Previous Rx's Medication Instructions Recorded Pantoprazole Sodium [Protonix] 40 mg PO DAILY #30 tablet. 11/23/16 Allergies Allergy/AdvReac Type Severity Reaction Status Date / Time No Known Allergies Allergy Verified 03/22/18 18:40 Review of Systems ROS Statement: Those systems with pertinent positive or pertinent negative responses have been documented in the HPI. ROS Other: All systems not noted in ROS Statement are negative. Past Medical History Past Medical History: Atrial Fibrillation, Coronary Artery Disease (CAD), Heart Failure, COPD, CVA/TIA, Hyperlipidemia, Hypertension, Myocardial Infarction (OR) , Sleep Apnea/CPAP/BIPAP Additional Past Medical History / Comment(s): blood transfusion/ANEMIA, STOPPED USING HIS CPAP MACHINE YEARS AGO, CONSTIPATION, SMALL SLIDING HIATAL HERNIA AND SMALL POLYP REMOVED.,HX MILD RENAL FAILURE. Last Myocardial Infarction Date:: HAD X2 LAST ONE 2002 History of Any Multi-Drug Resistant Organisms: None Reported Past Surgical History: Appendectomy, Coronary Bypass/CABG, Orthopedic Surgery Additional Past Surgical History / Comment(s): TRIPLE BYPASS, COLONOSCOPY/EGD, R hip sx Additional Past Anesthesia/Blood Transfusion Reaction / Comment(s): CLAUSTERPHOBIA Past Psychological History: No Psychological Hx Reported Smoking Status: Former smoker Past Alcohol Use History: None Reported Past Drug Use History: None Reported - Past Family History Father Family Medical History: Cancer Additional Family Medical History / Comment(s): of pancreatic cancer Mother Family Medical History: Diabetes Mellitus Additional Family Medical History / Comment(s): AT AGE 90 WAS IN PRETTY GOOD HEALTH FROM OLD AGE Brother(s) Family Medical History: Diabetes Mellitus Additional Family Medical History / Comment(s): 2 BROTHERS HAVE DIABETES General Exam - General Exam Comments Initial Comments: This a well-developed well-nourished awake alert oriented 3 male Limitations: no limitations General appearance: alert, in distress Head exam: Present: atraumatic, normocephalic, normal inspection Eye exam: Present: normal appearance, PERRL, EOMI. Absent: scleral icterus, conjunctival injection, periorbital swelling ENT exam: Present: normal exam, mucous membranes moist Neck exam: Present: normal inspection, other (No strider equivocal JVD). Absent : tenderness, meningismus, lymphadenopathy Respiratory exam: Present: respiratory distress, rales, chest wall tenderness, accessory muscle use, decreased breath sounds. Absent: wheezes, rhonchi, stridor Cardiovascular Exam: Present: irregular rhythm. Absent: systolic murmur, diastolic murmur, rubs, gallop, clicks GI/Abdominal exam: Present: soft, normal bowel sounds. Absent: distended, tenderness, guarding, rebound, rigid Extremities exam: Present: normal inspection, full ROM, normal capillary refill , pedal edema (Bilateral edema). Absent: tenderness, joint swelling, calf tenderness Back exam: Present: normal inspection Neurological exam: Present: alert, oriented X3, CN II-XII intact Psychiatric exam: Present: normal affect, normal mood Skin exam: Present: warm, dry, intact, normal color. Absent: rash Course Vital Signs 03/22/18 03/22/18 03/22/18 17:17 18:34 18:40 Temperature 97.7 F Pulse Rate 70 73 72 Respiratory 18 Rate Blood Pressure 126/67 O2 Sat by Pulse 90 L Oximetry 03/22/18 19:03 Temperature Pulse Rate 74 Respiratory 17 Rate Blood Pressure 124/70 O2 Sat by Pulse 95 Oximetry - Reevaluation(s) Reevaluation #1: 03/22/18 20:12 Minimal improvement from the initial treatment thus far. I did discuss findings with the patient and his family as well as with Dr. Maurice who was in the emergency department. Patient will be admitted Medical Decision Making - Medical Decision Making I did discuss findings with patient family patient be admitted he does have evidence pneumonia as well as clinical evidence of CHF and COPD exacerbation. Patient will be placed on treatment for the above - Lab Data Result diagrams: 03/22/18 17:51 03/22/18 17:51 Lab Results 03/22/18 03/22/18 03/22/18 Range/Units 17:51 17:51 17:51 WBC 10.5 (3.8-10.6) k/uL RBC 3.99 L (4.30-5.90) m/uL Hgb 12.6 L (13.0-17.5) gm/dL Hct 39.1 (39.0-53.0) % MCV 98.1 (80.0-100.0) fL MCH 31.7 (25.0-35.0) pg MCHC 32.3 (31.0-37.0) g/dL RDW 14.4 (11.5-15.5) % Plt Count 168 (150-450) k/uL Neutrophils % 83 % Lymphocytes % 8 % Monocytes % 6 % Eosinophils % 1 % Basophils % 0 % Neutrophils # 8.7 H (1.3-7.7) k/uL Lymphocytes # 0.8 L (1.0-4.8) k/uL Monocytes # 0.6 (0-1.0) k/uL Eosinophils # 0.1 (0-0.7) k/uL Basophils # 0.0 (0-0.2) k/uL PT (9.0-12.0) sec INR (<1.2) APTT (22.0-30.0) sec Sodium 140 (137-145) mmol/L Potassium 3.9 (3.5-5.1) mmol/L Chloride 105 (98-107) mmol/L Carbon Dioxide 28 (22-30) mmol/L Anion Gap 7 mmol/L BUN 32 H (9-20) mg/dL Creatinine 1.28 H (0.66-1.25) mg/dL Est GFR (CKD-EPI)AfAm 62 (>60 ml/min/1.73 sqM) Est GFR (CKD-EPI)NonAf 54 (>60 ml/min/1.73 sqM) Glucose 100 H (74-99) mg/dL Calcium 8.4 (8.4-10.2) mg/dL Magnesium 2.2 (1.6-2.3) mg/dL Total Bilirubin 1.8 H (0.2-1.3) mg/dL AST 17 (17-59) U/L ALT 18 L (21-72) U/L Alkaline Phosphatase 38 (38-126) U/L Total Creatine Kinase 24 L (55-170) U/L CK-MB (CK-2) 0.9 (0.0-2.4) ng/mL CK-MB (CK-2) Rel Index 3.8 Troponin I 0.034 (0.000-0.034) ng/mL NT-Pro-B Natriuret Pep pg/mL Total Protein 6.4 (6.3-8.2) g/dL Albumin 3.0 L (3.5-5.0) g/dL 03/22/18 03/22/18 Range/Units 17:51 17:51 WBC (3.8-10.6) k/uL RBC (4.30-5.90) m/uL Hgb (13.0-17.5) gm/dL Hct (39.0-53.0) % MCV (80.0-100.0) fL MCH (25.0-35.0) pg MCHC (31.0-37.0) g/dL RDW (11.5-15.5) % Plt Count (150-450) k/uL Neutrophils % % Lymphocytes % % Monocytes % % Eosinophils % % Basophils % % Neutrophils # (1.3-7.7) k/uL Lymphocytes # (1.0-4.8) k/uL Monocytes # (0-1.0) k/uL Eosinophils # (0-0.7) k/uL Basophils # (0-0.2) k/uL PT 12.2 H (9.0-12.0) sec INR 1.2 H (<1.2) APTT 27.9 (22.0-30.0) sec Sodium (137-145) mmol/L Potassium (3.5-5.1) mmol/L Chloride (98-107) mmol/L Carbon Dioxide (22-30) mmol/L Anion Gap mmol/L BUN (9-20) mg/dL Creatinine (0.66-1.25) mg/dL Est GFR (CKD-EPI)AfAm (>60 ml/min/1.73 sqM) Est GFR (CKD-EPI)NonAf (>60 ml/min/1.73 sqM) Glucose (74-99) mg/dL Calcium (8.4-10.2) mg/dL Magnesium (1.6-2.3) mg/dL Total Bilirubin (0.2-1.3) mg/dL AST (17-59) U/L ALT (21-72) U/L Alkaline Phosphatase (38-126) U/L Total Creatine Kinase (55-170) U/L CK-MB (CK-2) (0.0-2.4) ng/mL CK-MB (CK-2) Rel Index Troponin I (0.000-0.034) ng/mL NT-Pro-B Natriuret Pep 829 pg/mL Total Protein (6.3-8.2) g/dL Albumin (3.5-5.0) g/dL - EKG Data -: EKG Interpreted by Me (Atrial flutter with variable AV block rate was 77 QRS 158 QT since QTC 448/) - Radiology Data Radiology results: report reviewed (I did review the imaging and report or is evidence of bilateral lower lobe infiltrates suggestive of pneumonia.), image reviewed Critical Care Time Critical Care Time: Yes Critical Care Time: The patient has critical care time 39 minutes which includes initial presentation with history physical labs x-rays multiple reevaluation the patient discussed with the patient and family regarding the findings discussed with the beta physician admission orders and documentation of the above this also includes review of old charting that was available Disposition Clinical Impression: Pneumonia, Congestive heart failure (CHF), Acute exacerbation of chronic obstructive airways disease, Adult respiratory distress syndrome, Peripheral edema Disposition: ADMITTED IP TO THIS HOSP Condition: Serious Referrals: [facility],Clinic [Primary Care Provider] - 1-2 days
[2018-03-22 18:20] LABS: Basophils % (A) 0 %; Eosinophils # (A) 0.1 k/uL (0-0.7); Eosinophils % (A) 1 %; HCT 39.1 % (39.0-53.0); HGB 12.6 gm/dL (13.0-17.5); Lymphocytes # (A) 0.8 k/uL (1.0-4.8); Lymphocytes % (A) 8 %; MCH 31.7 pg (25.0-35.0); MCHC 32.3 g/dL (31.0-37.0); MCV 98.1 fL (80.0-100.0); Mean Platelet Volume 8.4; Monocytes # (A) 0.6 k/uL (0-1.0); Monocytes % (A) 6 %; Neutrophils # (A) 8.7 k/uL (1.3-7.7); Neutrophils % (A) 83 %; Platelet Count 168 k/uL (150-450); RBC 3.99 m/uL (4.30-5.90); RDW 14.4 % (11.5-15.5); WBC 10.5 k/uL (3.8-10.6)
[2018-03-22 18:22] LABS: INR 1.2 (<1.2); Partial Thromboplastin Time 27.9 sec (22.0-30.0); Prothrombin Time 12.2 sec (9.0-12.0)
[2018-03-22 18:30] LABS: Calcium 8.4 mg/dL (8.4-10.2); Magnesium 2.2 mg/dL (1.6-2.3); Potassium 3.9 mmol/L (3.5-5.1); Total Bilirubin 1.8 mg/dL (0.2-1.3); Total Protein 6.4 g/dL (6.3-8.2)
[2018-03-22 18:55] LABS: Creatine Kinase MB 0.9 ng/mL (0.0-2.4); Troponin I 0.034 ng/mL (0.000-0.034)
--- NOTE | 2018-03-22 20:02 | XR ---
EXAMINATION: XR chest 2V DATE AND TIME: 03/22/2018 6:16 PM CLINICAL INDICATION: PHH; difficulty breathing TECHNIQUE: Departmental protocol COMPARISON: 11/09/2017 FINDINGS: The lungs show bibasilar infiltrative opacity, right greater than left. These findings suggest bibasi lar bronchopneumonia. The pleural spaces are negative. The cardiac silhouette is mildly enlarged. Sternal sutures and mediastinal clips and EKG leads noted. The remainder of the mediastinal silhouette is unremarkable. The skeletal structures and soft tissues are negative for acute findings. IMPRESSION: FINDINGS SUGGEST BIBASILAR BRONCHOPNEUMONIA, RIGHT GREATER LEFT. Six-week follow-up radiographs recommended to prove resolution of the findings.
[2018-03-22] MEDS ORDERED: PNEUMONIA PROTOCOL UTILIZED 1 EACH MISC PO PRN (20:16)
[2018-03-22] MEDS ORDERED: methylPREDNISolone SOD SUCCI 125 MG/2 ML VIAL IV STA (20:16)
[2018-03-22] MEDS ORDERED: AZITHROMYCIN 500 MG in SODIUM CHLORIDE 0.9% 250 ML IVPB STA (20:16)
[2018-03-22] MEDS ORDERED: NITROGLYCERIN SL TABS 0.4 MG TAB SUBLINGUAL PRN (20:18)
[2018-03-22] MEDS ORDERED: SENNOSIDES 8.6 MG TAB PO PRN (20:18)
[2018-03-22] MEDS ORDERED: FUROSEMIDE 40 MG TAB PO SCH (21:00)
[2018-03-22] MEDS ORDERED: WARFARIN 5 MG TAB PO SCH (21:00)
[2018-03-22] MEDS: ATORVASTATIN 10 MG TAB PO SCH (22:24)
[2018-03-22] MEDS: DOCUSATE 100 MG CAP PO SCH (22:24)
[2018-03-22] MEDS: FERROUS SULFATE 325 MG TAB PO SCH (22:24)
[2018-03-22] MEDS: ISOSORBIDE MONONITRATE ER 30 MG TAB.ER.24H PO SCH (22:24)
[2018-03-22] MEDS: FUROSEMIDE 10 MG/ML 4 ML VIAL IV SCH (22:25)
[2018-03-22] MEDS: APIXABAN 2.5 MG TABLET PO SCH (22:25)
--- NOTE | 2018-03-22 22:52 | P.HPIM ---
History of Present Illness H&P Date: 03/22/18 Chief Complaint: Shortness of breath Patient is a 77-year-old male with a known history of chronic atrial fibrillation on anticoagulation, and coronary artery disease, obstructive sleep apnea currently not using CPAP, hypertension, hyperlipidemia, history of CABG and CA came to ER with complaints of shortness of breath getting worse for the past 1 week. The patient has been having worsening leg swelling, orthopnea and shortness of breath. Patient otherwise denied any history of congestive heart failure. No fever no chills. Patient did complain of sharp costochondral chest pain with deep breathing as well. No fever no chills. No cough or sputum production. Denied any recent illnesses. No recent travel. No sick contacts at home. Patient says that he gained weight from about 200 pounds at 215 pounds in that period time. Patient does have a history of smoking. Chest x-ray showed findings suggestive of bibasilar bronchopneumonia. Right greater than left. EKG showed atrial fibrillation BNP 829 Troponin 1 negative Review of Systems Constitutional: Patient denies any fever or chills . No generalized weakness or weight loss. Abdomen: Patient denied nausea vomiting and diarrhea and abdominal pain. Cardiovascular: Patient denied any chest pain. Patient does have shortness of breath and leg swelling. No palpitations.. Respiratory: patient denied any cough is from production. No shortness of breath Neurologic: Patient denied any numbness or tingling headache. Musculoskeletal: Patient denies any complaints of joint swelling or deformity. Skin: Negative Psychiatric: Negative Endocrine: No heat or cold intolerance. No recent weight gain. Genitourinary: No dysuria or hematuria. All other 14 point ROS negative except the above Past Medical History Past Medical History: Atrial Fibrillation, Coronary Artery Disease (CAD), Heart Failure, COPD, CVA/TIA, Hyperlipidemia, Hypertension, Myocardial Infarction ([place]) , Sleep Apnea/CPAP/BIPAP Additional Past Medical History / Comment(s): blood transfusion/ANEMIA, STOPPED USING HIS CPAP MACHINE YEARS AGO, CONSTIPATION, SMALL SLIDING HIATAL HERNIA AND SMALL POLYP REMOVED.,HX MILD RENAL FAILURE. Last Myocardial Infarction Date:: HAD X2 LAST ONE 2002 History of Any Multi-Drug Resistant Organisms: None Reported Past Surgical History: Appendectomy, Coronary Bypass/CABG, Orthopedic Surgery Additional Past Surgical History / Comment(s): TRIPLE BYPASS, COLONOSCOPY/EGD, R hip sx Additional Past Anesthesia/Blood Transfusion Reaction / Comment(s): CLAUSTERPHOBIA Past Psychological History: No Psychological Hx Reported Smoking Status: Former smoker Past Alcohol Use History: None Reported Past Drug Use History: None Reported - Past Family History Father Family Medical History: Cancer Additional Family Medical History / Comment(s): of pancreatic cancer Mother Family Medical History: Diabetes Mellitus Additional Family Medical History / Comment(s): AT AGE 90 WAS IN PRETTY GOOD HEALTH FROM OLD AGE Brother(s) Family Medical History: Diabetes Mellitus Additional Family Medical History / Comment(s): 2 BROTHERS HAVE DIABETES Medications and Allergies Home Medications Medication Instructions Recorded Confirmed Type Tiotropium 18 Mcg/Puff [Spiriva] 1 cap INHALATION RT-DAILY 07/13/13 03/22/18 History Albuterol Inhaler [Ventolin Hfa 1 - 2 puff INHALATION RT-Q6H PRN 10/08/14 History Inhaler] Budesonide-Formot 160-4.5 Mcg 2 puff INHALATION RT-BID 10/08/14 03/22/18 History [Symbicort 160-4.5 Mcg Inhaler] Folic Acid 1 mg PO DAILY 10/08/14 03/22/18 History Nitroglycerin Sl Tabs [Nitrostat] 0.4 mg SUBLINGUAL Q5M PRN 03/19/16 03/22/18 History Pantoprazole Sodium [Protonix] 40 mg PO DAILY #30 tablet. 11/23/16 03/22/18 Rx Cyanocobalamin 100mcg 100 mcg PO DAILY 11/09/17 03/22/18 History Docusate [Colace] 100 mg PO BID 11/09/17 03/22/18 History Ferrous Sulfate [Iron] 325 mg PO TID 11/09/17 03/22/18 History Isosorbide Mononitrate [Isosorbide 30 mg PO BID 11/09/17 03/22/18 History Mononitrate ER] Tamsulosin [Flomax] 0.4 mg PO DAILY 11/09/17 03/22/18 History Simvastatin [Zocor] 20 mg PO HS 01/01/18 03/22/18 History Apixaban [Eliquis] 2.5 mg PO BID 01/04/18 03/22/18 History Ascorbic Acid [Vitamin C] 250 mg PO DAILY 03/22/18 03/22/18 History Carvedilol [Coreg] 12.5 mg PO BID 03/22/18 03/22/18 History Furosemide [Lasix] 80 mg PO BID 03/22/18 03/22/18 History Ipratropium-Albuterol Nebulize 3 ml INHALATION RT-QID 03/22/18 03/22/18 History [Duoneb 0.5 mg-3 mg/3 ml Soln] Sennosides [Senna] 8.6 mg PO BID PRN 03/22/18 03/22/18 History Allergies Allergy/AdvReac Type Severity Reaction Status Date / Time No Known Allergies Allergy Verified 03/22/18 18:40 Physical Exam Vitals: Vital Signs Temp Pulse Resp BP Pulse Ox 03/22/18 21:05 87 18 129/66 88 L 03/22/18 19:03 74 17 124/70 95 03/22/18 18:40 72 03/22/18 18:34 73 03/22/18 17:17 97.7 F 70 18 126/67 90 L Intake and Output 03/22/18 03/22/18 03/22/18 06:59 14:59 22:59 Other: Weight 97.522 kg PHYSICAL EXAMINATION: Patient is lying in the bed comfortably, no acute distress, awake alert and oriented.. HEENT: Normocephalic. Neck is supple. Pupils reactive. Nostrils clear. Oral cavity is moist. Ears reveal no drainage. Neck reveals no JVD, carotid bruits, or thyromegaly. CHEST EXAMINATION: Trachea is central. Symmetrical expansion. Bibasilar crackles and rhonchi. Diminished air entry and no wheezing. CARDIAC: Normal S1, S2 with no gallops. No murmurs ABDOMEN: Soft. Bowel sounds normal. No organomegaly. No abdominal bruits. Extremities: 2+ pitting edema. No clubbing or cyanosis Neurologically awake, alert, oriented x3 with well-coordinated movements. No focal deficits noted Skin: No rash or skin lesions. Psychiatric: Coperative. Nonsuicidal Musculoskeletal: No joint swelling or deformity. Normal range of motion. Results CBC & Chem 7: 03/22/18 17:51 03/22/18 17:51 Labs: Abnormal Lab Results - Last 24 Hours (Table) 03/22/18 03/22/18 03/22/18 Range/Units 17:51 17:51 17:51 RBC 3.99 L (4.30-5.90) m/uL Hgb 12.6 L (13.0-17.5) gm/dL Neutrophils # 8.7 H (1.3-7.7) k/uL Lymphocytes # 0.8 L (1.0-4.8) k/uL PT (9.0-12.0) sec INR (<1.2) BUN 32 H (9-20) mg/dL Creatinine 1.28 H (0.66-1.25) mg/dL Glucose 100 H (74-99) mg/dL Total Bilirubin 1.8 H (0.2-1.3) mg/dL ALT 18 L (21-72) U/L Total Creatine Kinase 24 L (55-170) U/L Albumin 3.0 L (3.5-5.0) g/dL 03/22/18 Range/Units 17:51 RBC (4.30-5.90) m/uL Hgb (13.0-17.5) gm/dL Neutrophils # (1.3-7.7) k/uL Lymphocytes # (1.0-4.8) k/uL PT 12.2 H (9.0-12.0) sec INR 1.2 H (<1.2) BUN (9-20) mg/dL Creatinine (0.66-1.25) mg/dL Glucose (74-99) mg/dL Total Bilirubin (0.2-1.3) mg/dL ALT (21-72) U/L Total Creatine Kinase (55-170) U/L Albumin (3.5-5.0) g/dL Assessment and Plan Assessment: Acute CHF with ejection fraction unknown Bibasilar bronchopneumonia Chronic atrial fibrillation on anticoagulation with Eliquis. Coronary artery disease and history of CABG History of CVA/TIA COPD. Not in exacerbation Previous history of smoking Hypertension Hyperlipidemia History of CA Obstructive sleep apnea not on CPAP at home. Patient stopped using. Small hiatal hernia Chronic kidney disease stage III BPH continue with Coreg and statins. Cardiology was consulted. Plan: Patient will be continued on IV diuresis with Lasix 40 mg twice a day. Continue with antibiotics in the form of ceftriaxone and azithromycin. Cardiology will be consulted. We will order 2-D echocardiogram. Denied current management and further recommendations based on the clinical course. Prognosis is guarded with multiple medical problems and comorbid conditions. Monitor renal function. Discussed with the family in detail at bedside. Past Drug Use History: None Reported Time with Patient: Greater than 30
[2018-03-22] MEDS ORDERED: IPRATROPIUM-ALBUTEROL 3 ML NEB ONE (23:58)
[2018-03-23] MEDS: IPRATROPIUM-ALBUTEROL 3 ML NEB INHALATION SCH ×6 (06:26→20:27)
--- NOTE | 2018-03-23 08:53 | XR ---
EXAMINATION TYPE: XR chest 2V DATE OF EXAM: 03/23/2018 COMPARISON: 03/22/2018 TECHNIQUE: PA and lateral views submitted. HISTORY: Cough possible pneumonia FINDINGS: The lungs show bibasilar infiltrative opacity, right greater than left. These findings suggest bibasi lar bronchopneumonia. The pleural spaces are negative. The cardiac silhouette is mildly enlarged. Jeramie rnal sutures and mediastinal clips and EKG leads noted. The remainder of the mediastinal silhouette i s unremarkable. Arthropathy of the shoulders and hypertrophic change of the spine. IMPRESSION: 1. Diffuse interstitial pattern with small bilateral effusion and basilar infiltrate. 2. There is a nodular appearing density at the right lung base. Measures 2.4 cm. This may represent i ntrapulmonary mass. Recommend CT scan chest. Report called to patient's nurse.
[2018-03-23 08:58] LABS: Basophils % (A) 0 %; Eosinophils % (A) 0 %; HCT 38.8 % (39.0-53.0); HGB 12.6 gm/dL (13.0-17.5); Lymphocytes # (A) 0.5 k/uL (1.0-4.8); Lymphocytes % (A) 5 %; MCH 32.2 pg (25.0-35.0); MCHC 32.5 g/dL (31.0-37.0); Mean Platelet Volume 8.3; Monocytes # (A) 0.2 k/uL (0-1.0); Monocytes % (A) 2 %; Neutrophils # (A) 8.2 k/uL (1.3-7.7); Neutrophils % (A) 92 %; Platelet Count 177 k/uL (150-450); RBC 3.92 m/uL (4.30-5.90); RDW 14.3 % (11.5-15.5); WBC 8.9 k/uL (3.8-10.6)
[2018-03-23 09:27] LABS: Calcium 8.3 mg/dL (8.4-10.2); Potassium 4.4 mmol/L (3.5-5.1)
[2018-03-23] MEDS: TAMSULOSIN 0.4 MG CAP.ER.24H PO SCH (10:51)
[2018-03-23] MEDS: DOCUSATE 100 MG CAP PO SCH ×2 (10:51→22:33)
[2018-03-23] MEDS: ISOSORBIDE MONONITRATE ER 30 MG TAB.ER.24H PO SCH ×2 (10:51→22:34)
[2018-03-23] MEDS: FOLIC ACID 1 MG TAB PO SCH (10:51)
[2018-03-23] MEDS: CYANOCOBALAMIN 500 MCG TAB PO SCH (10:51)
[2018-03-23] MEDS: ASCORBIC ACID 500 MG TAB PO SCH (10:52)
[2018-03-23] MEDS: CARVEDILOL 12.5 MG TAB PO SCH ×2 (10:55→18:40)
[2018-03-23] MEDS: FERROUS SULFATE 325 MG TAB PO SCH ×3 (10:55→22:33)
[2018-03-23] MEDS: APIXABAN 2.5 MG TABLET PO SCH ×2 (10:55→22:34)
[2018-03-23] MEDS: PANTOPRAZOLE 40 MG TABLET PO SCH (10:55)
[2018-03-23] MEDS: FUROSEMIDE 10 MG/ML 4 ML VIAL IV SCH ×2 (10:56→22:34)
[2018-03-23] MEDS ORDERED: VANCOMYCIN 1,000 MG in SODIUM CHLORIDE 0.9% 250 ML IVPB STA (17:10)
[2018-03-23] MEDS ORDERED: VANCOMYCIN IV PER PHARMACY 1 EACH MISC MISCELLANE PRN (17:13)
--- NOTE | 2018-03-23 17:16 | CONS ---
CONSULTATION PULMONARY CRITICAL CARE CONSULTATION: DATE OF SERVICE: 03/23/2018 This is a 77-year-old male with a history of atrial fibrillation, heart failure , COPD, who presented to the emergency room on March 22 with complaints of increasing shortness of breath going on for the last 4 or 5 days prior to admission. It got progressively worse. He had exertional dyspnea. He had orthopnea. He was not coughing or producing any phlegm. No fever or chills, although he did state he always feels cold. He blames that on the fact that he is on blood thinners. He also states that his feet were getting more and more swollen and he gained about 15 pounds over that course of time. He was seen in the emergency room and admitted with a diagnosis of congestive heart failure. In addition, his chest x-ray suggested the possibility of lower lobe pneumonia, but he does not appear to have pneumonic symptoms. Finally, he did mention to us that a year or so ago he had a limited resection of the right lung; I think right upper lobe; maybe a segmentectomy or a wedge resection for lung cancer. He did not require any chemotherapy or radiation therapy. Anyway, currently he is feeling a bit better, less short of breath. Still short of breath, though, and the swelling is still present. He is in the room with his and daughter. HOME MEDICATIONS: His home medications include: 1. Spiriva Handihaler. 2. Albuterol. 3. Symbicort. 4. Folic acid. 5. Nitroglycerin. 6. Vitamin B12. 7. Colace. 8. Iron. 9. Imdur. 10.Flomax. 11.Zocor. 12.Eliquis. 13.Vitamin C. 14.Coreg. 15.Lasix. 16.DuoNeb. 17.Senna. 18.Coumadin. 19.He also was on Protonix at some time. ALLERGIES: DENIED. PAST MEDICAL HISTORY: His past medical history includes: 1. Chronic atrial fibrillation, for which he is on medication and anticoagulation. 2. CAD. 3. Heart failure. 4. COPD. 5. CVA, TIA. 6. Hyperlipidemia. 7. Hypertension. 8. Myocardial infarction. 9. Sleep apnea, currently on CPAP. 10.Anemia. 11.Constipation. 12.Small hiatal hernia. 13.Some mild renal insufficiency. SURGICAL HISTORY: His surgical history includes, among other things: 1. Appendectomy. 2. Bypass grafting. 3. Right hip surgery. 4. Some other orthopedic procedures. SOCIAL HISTORY: Positive for previous heavy tobacco use. He does not smoke currently. Denies any alcohol use or illicit drug use. FAMILY HISTORY: Positive for pancreatic cancer and diabetes. REVIEW OF SYSTEMS: CONSTITUTIONAL: Weakness and fatigue. NEUROLOGIC: Negative. HEENT: Negative. CARDIOVASCULAR: Negative. PULMONARY: Shortness of breath, chest congestion. GI/: Negative. RHEUMATOLOGIC/IMMUNOLOGIC: Negative. DERMATOLOGIC: Negative. ENDOCRINOLOGIC: Negative. PHYSICAL EXAMINATION: Current vital signs are reviewed. Temperature 98.4, heart rate 72, respiratory rate 20, blood pressure 130/66, mean 87, room-air saturation 94%. Two-liter saturation 97 %. Appears in no acute distress. HEENT examination is grossly unremarkable. Mucous membranes are moist. Nasal oxygen noted. NECK: Supple. Full range of motion. No adenopathy or thyromegaly. Neck veins are flat. Cardiovascular examination reveals a regular rhythm and rate. Heart rate in the 80s. S1, S2 normal. No distinct murmur noted. LUNGS: Some bibasilar crackles. No wheezes. A few scattered coarse rhonchi are noted. Breath sounds are diminished throughout. ABDOMEN: Soft. Bowel sounds are heard. Extremities are intact. There is no cyanosis or clubbing. There is 2+ pedal and pretibial edema. Skin is without rash. There are multiple areas of ecchymoses. Neurologic examination is brief but nonfocal. IMAGING: Chest x-ray shows a diffuse interstitial pattern and small bilateral effusions consistent with fluid overload. There is also a nodular-appearing density at the right lung base. It measures 2.4 cm. Given his previous history of lung cancer, this will have to be eventually evaluated. LABS: Reviewed. White count 8.9, hemoglobin 12.6, hematocrit 38.8, platelet count 177 ,000. PT 12.2, INR 1.2, PTT 27.9. Sodium, potassium, chloride, CO2 all normal. Anion gap normal. BUN and creatinine were 35 and 1.28. The patient's N-terminal proBNP was 829. The patient's troponin was 0.034. Albumin 3. Microbiology is negative. Assessment 1. Acute hypoxemic respiratory failure secondary to acute CHF 2. History of atrial fibrillation 3. CAD 4. COPD 5. Hyperlipidemia 6. Hypertension 7. Myocardial Infarction 8. OSAS 9. Possible acute pneumonia Medications are reviewed. The patient is on Zithromax and Rocephin. The patient is also on updrafts. The patient is not on Symbicort. I will add back Symbicort. I do not believe the patient needs steroids. He is currently not on any. Additional recommendations and suggestions are forthcoming. Cardiology should be consulted. No additional recommendations are made. Will make sure that once he is discharged from the hospital, we continue to work up the potential lesion in the right lower lobe. A CT scan at this time would be risky, given his BUN and creatinine. Again, this is not an emergency. His heart failure needs to be addressed initially. Additional recommendations and suggestions are forthcoming. Prognosis is guarded. ARJUN / KAROLN: [id number] / MTDD
[2018-03-23] MEDS ORDERED: VANCOMYCIN 2,000 MG in SODIUM CHLORIDE 0.9% 500 ML 500 ML IVPB ONE (18:00)
[2018-03-23] MEDS: SYMBICORT 160-4.5 MCG INHALER INHALATION SCH (20:27)
[2018-03-23] MEDS: ATORVASTATIN 10 MG TAB PO SCH (22:33)
[2018-03-23] MEDS: AZITHROMYCIN 500 MG TAB PO SCH (22:43)
--- NOTE | 2018-03-23 23:21 | P.PN ---
Subjective Progress Note Date: 03/23/18 Principal diagnosis: Bilateral basilar pneumonia Acute CHF with ejection fraction unknown Patient is a 77-year-old male with a known history of chronic atrial fibrillation on anticoagulation, and coronary artery disease, obstructive sleep apnea currently not using CPAP, hypertension, hyperlipidemia, history of CABG and [place] came to ER with complaints of shortness of breath getting worse for the past 1 week. The patient has been having worsening leg swelling, orthopnea and shortness of breath. Patient otherwise denied any history of congestive heart failure. No fever no chills. Patient did complain of sharp costochondral chest pain with deep breathing as well. No fever no chills. No cough or sputum production. Denied any recent illnesses. No recent travel. No sick contacts at home. Patient says that he gained weight from about 200 pounds at 215 pounds in that period time. Patient does have a history of smoking. Chest x-ray showed findings suggestive of bibasilar bronchopneumonia. Right greater than left. EKG showed atrial fibrillation BNP 829 Troponin 1 negative 03/23/2018 Patient says that his breathing is better today. Patient is being continued on IV Lasix 40 mg twice daily. Patient had repeat chest x-ray showed possible underlying pulmonary nodule. CT chest with contrast as outpatient was heart failure recently stabilized.. Pulmonary and cardiology is following. 2-D echo was done as well. No complains of fever or chills. No nausea vomiting or abdominal pain. No diarrhea. No cough plus of chest pain. No other acute overnight issues. Pro-Calcitonin 0.71 elevated. Chest x-ray showed diffuse interstitial pattern with small bilateral effusion and basilar infiltrate. There is nodular appearing density at the right lung base. 2.4 cm may represent intrapulmonary mass. Current medications. Active Medications Albuterol/Ipratropium (Duoneb 0.5 Mg-3 Mg/3 Ml Soln) 3 ml INHALATION RT-Q4H [facility] Last Admin: 03/23/18 20:27 Dose: 3 ml Apixaban (Eliquis) 2.5 mg PO BID [facility] Last Admin: 03/23/18 22:34 Dose: 2.5 mg Ascorbic Acid (Vitamin C) 250 mg PO DAILY [facility] Last Admin: 03/23/18 10:52 Dose: 250 mg Atorvastatin Calcium (Lipitor) 10 mg PO HS [facility] Last Admin: 03/23/18 22:33 Dose: 10 mg Azithromycin (Zithromax) 500 mg PO Q24H [facility] Last Admin: 03/23/18 22:43 Dose: 500 mg Budesonide/Formoterol Fumarate (Symbicort 160-4.5 Mcg Inhaler) 2 puff INHALATION RT-BID [facility] Last Admin: 03/23/18 20:27 Dose: 2 puff Carvedilol (Coreg) 12.5 mg PO BID-W/MEALS [facility] Last Admin: 03/23/18 18:40 Dose: 12.5 mg Cyanocobalamin (Vitamin B-12) 250 mcg PO DAILY [facility] Last Admin: 03/23/18 10:51 Dose: 250 mcg Docusate Sodium (Colace) 100 mg PO BID [facility] Last Admin: 03/23/18 22:33 Dose: 100 mg Ferrous Sulfate (Feosol) 325 mg PO TID [facility] Last Admin: 03/23/18 22:33 Dose: 325 mg Folic Acid (Folic Acid) 1 mg PO DAILY@1200 [facility] Last Admin: 03/23/18 10:51 Dose: 1 mg Furosemide (Lasix) 40 mg IV Q12HR [facility] Last Admin: 03/23/18 22:34 Dose: 40 mg Ceftriaxone Sodium 1,000 mg/ (Sodium Chloride) 50 mls @ 100 mls/hr IVPB Q24HR [facility] Stop: 03/26/18 09:01 Last Admin: 03/23/18 15:16 Dose: 100 mls/hr Vancomycin HCl 1,750 mg/ (Sodium Chloride) 500 mls @ 167 mls/hr IVPB Q16H [facility] Isosorbide Mononitrate (Imdur) 30 mg PO BID [facility] Last Admin: 03/23/18 22:34 Dose: 30 mg Miscellaneous Information (Pneumonia Protocol Utilized) 1 each PO ONCE PRN PRN Reason: Per Protocol Miscellaneous Information (Pharmacy To Dose Iv Vancomycin) 1 each MISCELLANE DIRECTED PRN PRN Reason: Per Protocol Nitroglycerin (Nitrostat) 0.4 mg SUBLINGUAL Q5M PRN PRN Reason: Chest Pain Pantoprazole Sodium (Protonix) 40 mg PO AC-BRKFST [facility] Last Admin: 03/23/18 10:55 Dose: 40 mg Senna (Senokot) 8.6 mg PO BID PRN PRN Reason: Constipation Tamsulosin HCl (Flomax) 0.4 mg PO DAILY [facility] Last Admin: 03/23/18 10:51 Dose: 0.4 mg Objective - Vital Signs Vital signs: Vital Signs Temp 98.4 F 03/23/18 20:28 Pulse 72 03/23/18 20:39 Resp 16 03/23/18 20:39 BP 125/66 03/23/18 20:28 Pulse Ox 94 L 03/23/18 20:28 Intake & Output 03/23/18 03/23/18 03/24/18 06:59 18:59 06:59 Intake Total 350 Output Total 425 425 Balance -75 -425 Intake: Intake, IV Titration 300 Amount Azithromycin 500 mg In 250 Sodium Chloride 0.9% 250 ml @ 250 mls/hr IVPB ONCE STA Rx#:[id number] cefTRIAXone 1,000 mg In 50 Sodium Chloride 0.9% 50 ml @ 100 mls/hr IVPB Q24HR [facility] Rx#:[id number] Oral 50 Output: Urine 425 425 Other: Voiding Method Urinal # Voids 3 - Exam PHYSICAL EXAMINATION: Patient is lying in the bed comfortably, no acute distress, awake alert and oriented.. HEENT: Normocephalic. Neck is supple. Pupils reactive. Nostrils clear. Oral cavity is moist. Ears reveal no drainage. Neck reveals no JVD, carotid bruits, or thyromegaly. CHEST EXAMINATION: Trachea is central. Symmetrical expansion. Bibasilar crackles and coarse breath sounds.. CARDIAC: Normal S1, S2 with no gallops. No murmurs ABDOMEN: Soft. Bowel sounds normal. No organomegaly. No abdominal bruits. Extremities: 2+ edema. No clubbing or cyanosis Neurologically awake, alert, oriented x3 with well-coordinated movements. No focal deficits noted Skin: No rash or skin lesions. Psychiatric: Coperative. Nonsuicidal Musculoskeletal: No joint swelling or deformity. Normal range of motion. - Labs CBC & Chem 7: 03/23/18 08:02 03/23/18 08:02 Labs: Abnormal Lab Results - Last 24 Hours (Table) 03/23/18 03/23/18 03/23/18 Range/Units 08:02 08:02 08:02 RBC 3.92 L (4.30-5.90) m/uL Hgb 12.6 L (13.0-17.5) gm/dL Hct 38.8 L (39.0-53.0) % Neutrophils # 8.2 H (1.3-7.7) k/uL Lymphocytes # 0.5 L (1.0-4.8) k/uL BUN 35 H (9-20) mg/dL Creatinine 1.28 H (0.66-1.25) mg/dL Glucose 148 H (74-99) mg/dL Calcium 8.3 L (8.4-10.2) mg/dL Procalcitonin 0.71 H (0.02-0.09) ng/mL Microbiology - Last 24 Hours (Table) 03/22/18 21:15 Blood Culture Gram Stain - Preliminary Blood 03/22/18 21:15 Blood Culture - Final Blood Assessment and Plan Assessment: Acute CHF with ejection fraction unknown Bibasilar bronchopneumonia Right lower lung suspect lung nodule per chest x-ray. CT chest as outpatient. Chronic atrial fibrillation on anticoagulation with Eliquis. Coronary artery disease and history of CABG History of CVA/TIA COPD. Not in exacerbation Previous history of smoking Hypertension Hyperlipidemia History of [place] Obstructive sleep apnea not on CPAP at home. Patient stopped using. Small hiatal hernia Chronic kidney disease stage III BPH continue with Coreg and statins. Cardiology was consulted. Plan: Patient will be continued on IV diuresis with Lasix 40 mg twice a day. Continue with antibiotics in the form of ceftriaxone and azithromycin. Cardiology and pulmonary is following. o2-D echocardiogram was done.. Continue current management and further recommendations based on the clinical course. Prognosis is guarded with multiple medical problems and comorbid conditions. Monitor renal function. Discussed with the family in detail at bedside. Time with Patient: Greater than 30
[2018-03-24] MEDS: IPRATROPIUM-ALBUTEROL 3 ML NEB INHALATION SCH ×7 (01:18→23:52)
[2018-03-24] MEDS ORDERED: VANCOMYCIN 1,750 MG in SODIUM CHLORIDE 0.9% 500 ML 500 ML IVPB SCH (08:00)
[2018-03-24] MEDS: SYMBICORT 160-4.5 MCG INHALER INHALATION SCH ×2 (08:25→20:51)
[2018-03-24 08:44] LABS: Potassium 4.2 mmol/L (3.5-5.1)
[2018-03-24] MEDS: APIXABAN 2.5 MG TABLET PO SCH ×2 (09:44→21:10)
[2018-03-24] MEDS: FUROSEMIDE 10 MG/ML 4 ML VIAL IV SCH (09:44)
[2018-03-24] MEDS: ISOSORBIDE MONONITRATE ER 30 MG TAB.ER.24H PO SCH ×2 (09:44→21:10)
[2018-03-24] MEDS: CYANOCOBALAMIN 500 MCG TAB PO SCH (09:44)
[2018-03-24] MEDS: ASCORBIC ACID 500 MG TAB PO SCH (09:45)
[2018-03-24] MEDS: TAMSULOSIN 0.4 MG CAP.ER.24H PO SCH (09:48)
[2018-03-24] MEDS: FERROUS SULFATE 325 MG TAB PO SCH ×3 (09:48→21:10)
[2018-03-24] MEDS: PANTOPRAZOLE 40 MG TABLET PO SCH (09:49)
[2018-03-24] MEDS: DOCUSATE 100 MG CAP PO SCH ×2 (09:49→21:10)
[2018-03-24] MEDS: CARVEDILOL 12.5 MG TAB PO SCH ×2 (09:49→16:57)
--- NOTE | 2018-03-24 09:58 | P.CRDCN ---
History of Present Illness History of present illness: This is a pleasant 77-year-old male past medical history significant for coronary artery disease status post bypass grafting with KNOWLES to LAD, KATY to RCA and free radial to OM performed in 1999, chronic persistent atrial fibrillation on long-term anticoagulation, ischemic cardiomyopathy, chronic systolic heart failure, hypertension, dyslipidemia and COPD. He follows with Dr. Dunaway in the office. We have asked to see him in consultation secondary to shortness of breath. He presented to the hospital with complaints of increased shortness of breath, lower extremity edema and a 15 pound weight gain over the previous 7-10 days. Chest x-ray on admission reveals bibasilar bronchopneumonia right greater than left. He has been started on IV antibiotics as well as IV Lasix and IV steroids. Repeat chest x-ray this morning reveals diffuse interstitial pattern with small bilateral effusions and basilar infiltrates there is also a nodular-appearing density at the right lung base measuring 2.4 cm possibly representing an intrapulmonary mass recommend computed tomography scan of the chest. EKG reveals atrial fibrillation right bundle branch block heart rate of 77. Laboratory data reviewed, WBC 10.5, hemoglobin 12.6, platelets 168, sodium 140, potassium 3.9, creatinine 1.28, magnesium 2.2, cardiac enzymes negative 1, NT proBNP 829. Current cardiac medications include Lasix 80 mg twice a day, Imdur 30 mg twice a day, simvastatin 20 mg daily, Eliquis 2.5 mg twice a day and carvedilol 12.5 mg twice a day. Most recent echocardiogram obtained in the office November 2016 reveals ejection fraction 52%, mild tricuspid regurgitation mild atrial regurgitation, right ventricular septal wall flattening in diastole and systole consistent with right ventricular volume and pressure overload. At the time of my exam: CONSTITUTIONAL: Denies fever. Denies chills. EYES: Denies blurred vision. Denies vision changes. Denies eye pain. EARS, NOSE, MOUTH & THROAT: Denies headache. Denies sore throat. Denies ear pain. CARDIOVASCULAR: Denies chest pain. Complains of shortness of breath. Denies orthopnea. Denies PND. Denies palpitations. RESPIRATORY: Denies cough. GASTROINTESTINAL: Denies abdominal pain. Denies diarrhea. Denies constipation. Denies nausea. Denies vomiting. MUSCULOSKELETAL: Denies myalgias. INTEGUMENTARY: Denies pruitis. Denies rash. NEUROLOGIC: Denies numbness. Denies tingling. Denies weakness. PSYCHIATRIC: Denies anxiety. Denies depression. ENDOCRINE: Denies fatigue. Denies weight change. Denies polydipsia. Denies polyurina. GENITOURINARY: Denies burning, hematuria or urgency with micturation. HEMATOLOGIC: Denies history of anemia. Denies bleeding. Blood pressure 125/68 heart rate 86 afebrile maintaining oxygen saturation on nasal cannula GENERAL: This is a 77-year-old male in no apparent distress at the time of my examination. HEENT: Head is atraumatic, normocephalic. Pupils are equal, round. Sclerae anicteric. Conjunctivae are clear. Mucous membranes of the mouth are moist. Neck is supple. There is no jugular venous distention. No carotid bruit is heard. LUNGS: Diminished bilaterally. No chest wall tenderness is noted on palpation or with deep breathing. Course rhonchi noted throughout with faint expiratory wheezes. No rales. HEART: Irregular rate and rhythm without murmurs, rubs or gallops. S1 and S2 heard. ABDOMEN: Soft, nontender. Bowel sounds are heard. No organomegaly noted. EXTREMITIES: Trace lower extremity non-pitting of peripheral edema and no calf tenderness noted. VASCULAR: Radial and dorsalis pedis pulses palpated, no evidence of clubbing. NEUROLOGIC: Patient is awake, alert and oriented x3. ASSESSMENT Shortness of breath, multi-factorial due to pneumonia, COPD and bacteremia. No heart failure clinically with normal BNP. Chronic persistent atrial fibrillation on long-term anticoagulation History of coronary artery disease status post bypass grafting, ischemic cardiomyopathy History of systolic heart failure, currently euvolemic Hypertension Dyslipidemia COPD PLAN Obtain 2-D echocardiogram and Doppler study to assess cardiac structure and function. Continue with antibiotics. Place on home dose of lasix [address] to follow up on xray reports of possible lung nodule. Thank you kindly for this consultation. Nurse Practitioner note has been reviewed, I agree with a documented findings and plan of care. Patient was seen and examined. Past Medical History Past Medical History: Atrial Fibrillation, Coronary Artery Disease (CAD), Heart Failure, COPD, CVA/TIA, Hyperlipidemia, Hypertension, Myocardial Infarction (IA) , Sleep Apnea/CPAP/BIPAP Additional Past Medical History / Comment(s): blood transfusion/ANEMIA, STOPPED USING HIS CPAP MACHINE YEARS AGO, CONSTIPATION, SMALL SLIDING HIATAL HERNIA AND SMALL POLYP REMOVED.,HX MILD RENAL FAILURE. Last Myocardial Infarction Date:: HAD X2 LAST ONE 2002 History of Any Multi-Drug Resistant Organisms: None Reported Past Surgical History: Appendectomy, Coronary Bypass/CABG, Orthopedic Surgery Additional Past Surgical History / Comment(s): TRIPLE BYPASS, COLONOSCOPY/EGD, R hip sx Additional Past Anesthesia/Blood Transfusion Reaction / Comment(s): CLAUSTERPHOBIA Past Psychological History: No Psychological Hx Reported Smoking Status: Former smoker Past Alcohol Use History: None Reported Past Drug Use History: None Reported - Past Family History Father Family Medical History: Cancer Additional Family Medical History / Comment(s): of pancreatic cancer Mother Family Medical History: Diabetes Mellitus Additional Family Medical History / Comment(s): AT AGE 90 WAS IN PRETTY GOOD HEALTH FROM OLD AGE Brother(s) Family Medical History: Diabetes Mellitus Additional Family Medical History / Comment(s): 2 BROTHERS HAVE DIABETES Medications and Allergies Home Medications Medication Instructions Recorded Confirmed Type Tiotropium 18 Mcg/Puff [Spiriva] 1 cap INHALATION RT-DAILY 07/13/13 03/22/18 History Albuterol Inhaler [Ventolin Hfa 1 - 2 puff INHALATION RT-Q6H PRN 10/08/14 History Inhaler] Budesonide-Formot 160-4.5 Mcg 2 puff INHALATION RT-BID 10/08/14 03/22/18 History [Symbicort 160-4.5 Mcg Inhaler] Folic Acid 1 mg PO DAILY 10/08/14 03/22/18 History Nitroglycerin Sl Tabs [Nitrostat] 0.4 mg SUBLINGUAL Q5M PRN 03/19/16 03/22/18 History Pantoprazole Sodium [Protonix] 40 mg PO DAILY #30 tablet. 11/23/16 03/22/18 Rx Cyanocobalamin 100mcg 100 mcg PO DAILY 11/09/17 03/22/18 History Docusate [Colace] 100 mg PO BID 11/09/17 03/22/18 History Ferrous Sulfate [Iron] 325 mg PO TID 11/09/17 03/22/18 History Isosorbide Mononitrate [Isosorbide 30 mg PO BID 11/09/17 03/22/18 History Mononitrate ER] Tamsulosin [Flomax] 0.4 mg PO DAILY 11/09/17 03/22/18 History Simvastatin [Zocor] 20 mg PO HS 01/01/18 03/22/18 History Apixaban [Eliquis] 2.5 mg PO BID 01/04/18 03/22/18 History Ascorbic Acid [Vitamin C] 250 mg PO DAILY 03/22/18 03/22/18 History Carvedilol [Coreg] 12.5 mg PO BID 03/22/18 03/22/18 History Furosemide [Lasix] 80 mg PO BID 03/22/18 03/22/18 History Ipratropium-Albuterol Nebulize 3 ml INHALATION RT-QID 03/22/18 03/22/18 History [Duoneb 0.5 mg-3 mg/3 ml Soln] Sennosides [Senna] 8.6 mg PO BID PRN 03/22/18 03/22/18 History Allergies Allergy/AdvReac Type Severity Reaction Status Date / Time No Known Allergies Allergy Verified 03/22/18 18:40 Physical Exam Vitals: Vital Signs Temp Pulse Pulse Resp BP BP Pulse Ox 03/23/18 08:38 80 03/23/18 08:29 84 03/23/18 00:50 18 03/22/18 21:52 99.3 F 86 20 125/68 98 03/22/18 21:05 87 18 129/66 88 L 03/22/18 19:03 74 17 124/70 95 03/22/18 18:40 72 03/22/18 18:34 73 03/22/18 17:17 97.7 F 70 18 126/67 90 L Intake and Output 03/22/18 03/23/18 03/23/18 22:59 06:59 14:59 Intake Total 50 300 Output Total 425 Balance -375 300 Intake: Intake, IV Titration 50 250 Amount Azithromycin 500 mg In 250 Sodium Chloride 0.9% 250 ml @ 250 mls/hr IVPB ONCE STA Rx#:[id number] cefTRIAXone 1,000 mg In 50 Sodium Chloride 0.9% 50 ml @ 100 mls/hr IVPB Q24HR NICKOL[facility] Rx#:[id number] Oral 50 Output: Urine 425 Other: Voiding Method Urinal # Voids 2 3 Weight 97.522 kg Results 03/23/18 08:02 03/24/18 07:19 Cardiac Enzymes 03/22/18 03/22/18 Range/Units 17:51 17:51 AST 17 (17-59) U/L CK-MB (CK-2) 0.9 (0.0-2.4) ng/mL Troponin I 0.034 (0.000-0.034) ng/mL Coagulation 03/22/18 Range/Units 17:51 PT 12.2 H (9.0-12.0) sec APTT 27.9 (22.0-30.0) sec CBC 03/22/18 Range/Units 17:51 WBC 10.5 (3.8-10.6) k/uL RBC 3.99 L (4.30-5.90) m/uL Hgb 12.6 L (13.0-17.5) gm/dL Hct 39.1 (39.0-53.0) % Plt Count 168 (150-450) k/uL Comprehensive Metabolic Panel 03/22/18 Range/Units 17:51 Sodium 140 (137-145) mmol/L Potassium 3.9 (3.5-5.1) mmol/L Chloride 105 (98-107) mmol/L Carbon Dioxide 28 (22-30) mmol/L BUN 32 H (9-20) mg/dL Creatinine 1.28 H (0.66-1.25) mg/dL Glucose 100 H (74-99) mg/dL Calcium 8.4 (8.4-10.2) mg/dL AST 17 (17-59) U/L ALT 18 L (21-72) U/L Alkaline Phosphatase 38 (38-126) U/L Total Protein 6.4 (6.3-8.2) g/dL Albumin 3.0 L (3.5-5.0) g/dL Current Medications Generic Name Dose Route Start Last Admin Trade Name Freq PRN Reason Stop Dose Admin Albuterol/Ipratropium 3 ml 03/23/18 00:00 03/23/18 08:29 Duoneb 0.5 Mg-3 Mg/3 Ml Soln INHALATION 3 ml RT-Q4H NICKOLAS Administration Apixaban 2.5 mg 03/22/18 21:00 03/22/18 22:25 Eliquis PO 2.5 mg BID [facility] Administration Ascorbic Acid 250 mg 03/23/18 09:00 Vitamin C PO DAILY [facility] Atorvastatin Calcium 10 mg 03/22/18 21:00 03/22/18 22:24 Lipitor PO 10 mg HS [facility] Administration Azithromycin 500 mg 03/23/18 18:00 Zithromax PO Q24H [facility] Carvedilol 12.5 mg 03/23/18 07:30 Coreg PO BID-W/MEALS [facility] Cyanocobalamin 250 mcg 03/23/18 09:00 Vitamin B-12 PO DAILY [facility] Docusate Sodium 100 mg 03/22/18 21:00 03/22/18 22:24 Colace PO 100 mg BID [facility] Administration Ferrous Sulfate 325 mg 03/22/18 22:00 03/22/18 22:24 Feosol PO 325 mg TID [facility] Administration Folic Acid 1 mg 03/23/18 12:00 Folic Acid PO DAILY@1200 [facility] Furosemide 40 mg 03/22/18 21:00 03/22/18 22:25 Lasix IV 40 mg Q12HR [facility] Administration Ceftriaxone Sodium 1,000 mg/ 50 mls @ 100 mls/hr 03/23/18 09:00 Sodium Chloride IVPB 03/26/18 09:01 Q24HR [facility] Isosorbide Mononitrate 30 mg 03/22/18 21:00 03/22/18 22:24 Imdur PO 30 mg BID [facility] Administration Miscellaneous Information 1 each 03/22/18 20:16 Pneumonia Protocol Utilized PO ONCE PRN Per Protocol Nitroglycerin 0.4 mg 03/22/18 20:18 Nitrostat SUBLINGUAL Q5M PRN Chest Pain Pantoprazole Sodium 40 mg 03/23/18 07:30 Protonix PO AC-BRKFST [facility] Senna 8.6 mg 03/22/18 20:18 Senokot PO BID PRN Constipation Tamsulosin HCl 0.4 mg 03/23/18 09:00 Flomax PO DAILY [facility] Intake and Output 03/22/18 03/23/18 03/23/18 22:59 06:59 14:59 Intake Total 50 300 Output Total 425 Balance -375 300 Intake: Intake, IV Titration 50 250 Amount Azithromycin 500 mg In 250 Sodium Chloride 0.9% 250 ml @ 250 mls/hr IVPB ONCE STA Rx#:[id number] cefTRIAXone 1,000 mg In 50 Sodium Chloride 0.9% 50 ml @ 100 mls/hr IVPB Q24HR [facility] Rx#:[id number] Oral 50 Output: Urine 425 Other: Voiding Method Urinal # Voids 2 3 Weight 97.522 kg 03/22/18 17:51 03/22/18 17:51
[2018-03-24] MEDS: FOLIC ACID 1 MG TAB PO SCH (11:54)
--- NOTE | 2018-03-24 12:26 | ECHOF ---
Referral Reason:sob, hx ischem cm MEASUREMENTS -------- HEIGHT: 182.9 cm WEIGHT: 97.5 kg BP: 125/68 RVIDd: 3.2 cm (< 3.3) IVSd: 1.4 cm (0.6 - 1.1) LVIDd: 4.6 cm (3.9 - 5.3) LVPWd: 1.2 cm (0.6 - 1.1) IVSs: 1.7 cm LVIDs: 2.7 cm LVPWs: 1.8 cm LA Diam: 5.4 cm (2.7 - 3.8) LAESV Index (A-L): 55.62 ml/m Ao Diam: 3.0 cm (2.0 - 3.7) AV Cusp: 1.9 cm (1.5 - 2.6) LA Diam: 6.0 cm (2.7 - 3.8) MV EXCURSION: 24.338 mm (> 18.000) MV EF SLOPE: 58 mm/s (70 - 150) EPSS: 0.3 cm MV E Lino: 1.16 m/s MV DecT: 182 ms MV A Lino: 0.38 m/s MV E/A Ratio: 3.04 RAP: 5.00 mmHg RVSP: 34.93 mmHg FINDINGS -------- Sinus rhythm. This was a techncally difficult study with suboptimal views, , Lumason utilized for enhancement of im ages. The left ventricular size is normal. There is mild concentric left ventricular hypertrophy. Overa ll left ventricular systolic function is mildly impaired with, an EF between 45 - 50 %. Apical sept um LV wall motion is hypokinetic. Septal Hypokinesis The right ventricle is normal in size. The left atrium is markedly dilated. LA is severely dilated >40 ml/m2 The right atrial size is normal. 5.0mg OF Lumason UTLIZED: 2 OR MORE WALL SEGMENTS NOT VISUALIZED. The aortic valve is trileaflet, and appears structurally normal. No aortic stenosis or regurgitation. Mild mitral annular calcification present. Mild mitral regurgitation is present. Mild tricuspid regurgitation present. There is mild pulmonary hypertension. The right ventricular systolic pressure, as measured by Doppler, is 34.93mmHg. There is no pulmonic regurgitation present. The aortic root size is normal. There is no pericardial effusion. CONCLUSIONS -------- 1. This was a techncally difficult study with suboptimal views, , Lumason utilized for enhancement of images. 2. The left ventricular size is normal. 3. There is mild concentric left ventricular hypertrophy. 4. Apical septum LV wall motion is hypokinetic. 5. Septal Hypokinesis 6. The right ventricle is normal in size. 7. The left atrium is markedly dilated. 8. LA is severely dilated >40 ml/m2 9. The right atrial size is normal. 10. 5.0mg OF Lumason UTLIZED: 2 OR MORE WALL SEGMENTS NOT VISUALIZED. 11. The aortic valve is trileaflet, and appears structurally normal. No aortic stenosis or regurgitat ion. 12. Mild mitral annular calcification present. 13. Mild mitral regurgitation is present. 14. Mild tricuspid regurgitation present. 15. There is mild pulmonary hypertension. 16. The right ventricular systolic pressure, as measured by Doppler, is 34.93mmHg. 17. There is no pulmonic regurgitation present. 18. The aortic root size is normal. 19. There is no pericardial effusion. DOCUMENTATION LIAISON: Zara Evans RDCS
--- NOTE | 2018-03-24 12:55 | P.PN ---
Subjective This is a pleasant 77-year-old male past medical history significant for coronary artery disease status post bypass grafting with KNOWLES to LAD, KATY to RCA and free radial to OM performed in 1999, chronic persistent atrial fibrillation on long-term anticoagulation, ischemic cardiomyopathy, chronic systolic heart failure, hypertension, dyslipidemia and COPD. He follows with Dr. Dunaway in the office. Echocardiogram obtained reveals mildly impaired left ventricular systolic function with ejection fraction 45-50%, severely dilated left atrium, mild tricuspid regurgitation, mild mitral regurgitation and mild pulmonary hypertension with an RVSP of 34 mmHg. Blood pressure 124/66 heart rate 57 afebrile maintaining oxygen saturation on nasal cannula. Laboratory data reviewed, sodium 143, potassium 4.2, creatinine 1.23. He continues to be maintained on vancomycin and rocephin as well as breathing treatments. He continues to feel short of breath at rest with little improvement since admission. He denies chest pain, dizziness or palpitaiton. IV lasix has been changed to oral. GENERAL: This is a 77-year-old male in no apparent distress at the time of my examination. HEENT: Head is atraumatic, normocephalic. Pupils are equal, round. Sclerae anicteric. Conjunctivae are clear. Mucous membranes of the mouth are moist. Neck is supple. There is no jugular venous distention. No carotid bruit is heard. LUNGS: Diminished bilaterally. No chest wall tenderness is noted on palpation or with deep breathing. Course rhonchi noted throughout with faint expiratory wheezes. No rales. HEART: Irregular rate and rhythm without murmurs, rubs or gallops. S1 and S2 heard. EXTREMITIES: Trace lower extremity non-pitting of peripheral edema and no calf tenderness noted. ASSESSMENT Shortness of breath, multi-factorial due to pneumonia, COPD and bacteremia. No heart failure clinically with normal BNP. Chronic persistent atrial fibrillation on long-term anticoagulation History of coronary artery disease status post bypass grafting, ischemic cardiomyopathy History of systolic heart failure, currently euvolemic Hypertension Dyslipidemia COPD PLAN Clinically no overt heart failure appreciated. Ongoing medical management. We will continue to follow as needed, please feel free to call with further questions or concerns. Follow up with Dr. Dunaway upon discharge. Nurse Practitioner note has been reviewed, I agree with a documented findings and plan of care. Patient was seen and examined. Objective - Vital Signs Vital signs: Vital Signs Temp 97.8 F 03/24/18 06:58 Pulse 76 03/24/18 12:02 Resp 16 03/24/18 06:58 BP 124/66 03/24/18 06:58 Pulse Ox 95 03/24/18 06:58 Intake & Output 03/23/18 03/24/18 03/24/18 18:59 06:59 18:59 Intake Total 390 Output Total 425 950 250 Balance -425 -950 140 Intake: Oral 390 Output: Urine 425 950 250 Other: Voiding Method Urinal - Labs CBC & Chem 7: 03/23/18 08:02 03/24/18 07:19 Labs: Abnormal Lab Results - Last 24 Hours (Table) 03/23/18 03/24/18 Range/Units 08:02 07:19 Chloride 108 H (98-107) mmol/L BUN 39 H (9-20) mg/dL Glucose 120 H (74-99) mg/dL Calcium 8.0 L (8.4-10.2) mg/dL Procalcitonin 0.71 H (0.02-0.09) ng/mL Microbiology - Last 24 Hours (Table) 03/22/18 21:15 Blood Culture Gram Stain - Preliminary Blood Blood Culture - Preliminary Coagulase Negative Staph 03/22/18 21:15 Blood Culture - Final Blood
[2018-03-24 15:23] VITALS: BMI 29.1
--- NOTE | 2018-03-24 15:26 | P.PN ---
Subjective Progress Note Date: 03/24/18 Principal diagnosis: Shortness of breath, orthopnea, extremity swelling. This is a 77-year-old white male patient [facility] [place], with past medical history of atrial fibrillation, congestive heart failure, COPD, previous history of CVA, hypertension, hyperlipidemia, previous episode of myocardial infarction, sleep apnea on CPAP therapy, chronic anemia, small hiatal hernia, chronic kidney disease, was admitted to the hospital on 03/22/2018 after he came in for evaluation of worsening shortness of breath, orthopnea, exertional dyspnea, and increasing swelling in his lower extremities. He denied any cough, or phlegm production, denied any fever or chills. He was was feeling cold, but she blamed it on that his blood thinners. She did have a weight gain of about 15 pounds in the short course of time. Patient had a previous wedge resection in his right upper lobe for lung cancer, reportedly in June 2017 at a [facility] in [place]. Patient denied getting any radiation or chemotherapy afterward. We requested those records from Dr. Thacker's office, and were told those records about his right upper lobe wedge resection were not available from there, and the [facility] to [facility] [place]. Awaiting response. Admission chest x- ray showed bibasilar bronchopneumonia, right greater than left. She also has previous history of bypass grafting in 1999, ischemic cardiomyopathy, chronic systolic heart failure, follows with Dr. CB Duna[facility]. ProBNP was 829, troponin was 0.034. Was seen by cardiology who did not feel he is in overt heart failure. Her calcitonin came back elevated at 0.71, suggesting bacterial infection. Blood culture from a 03/22/2018 showed coagulase-negative staph, click contaminated specimen. Lab work has been negative for leukocytosis, patient hasn't had any fever or chills, his labs have been reviewed, and showed sodium of 143, potassium is 4.2, Court is 108, BUN is 39 creatinine is 1.23. Antibiotics include Zithromax, and Rocephin. She has not been able to produce a sputum specimen for culture, we started him on nebulized bronchodilators, Symbicort. Vancomycin was added to his antibiotics today. He is on oral Lasix 8080 mg twice daily. He is feeling better today, yesterday's chest x-ray was reviewed with Dr. Herring, showed diffuse interstitial pattern with small bilateral effusions and basilar infiltrates, and nodular appearing density at the right lung base measuring 2.4 cm, possibly representing intrapulmonary mass. Patient is maintaining good oxygenation on 2 L per nasal cannula his pulse ox is 95%, he is afebrile. Objective - Vital Signs Vital signs: Vital Signs Temp 97.8 F 03/24/18 06:58 Pulse 76 03/24/18 12:02 Resp 16 03/24/18 06:58 BP 124/66 03/24/18 06:58 Pulse Ox 95 03/24/18 06:58 Intake & Output 03/23/18 03/24/18 03/24/18 18:59 06:59 18:59 Intake Total 670 Output Total 425 950 250 Balance -425 -950 420 Intake: Oral 670 Output: Urine 425 950 250 Other: Voiding Method Urinal - Exam GENERAL EXAM: Alert, pleasant, 77-year-old white male, currently on 2 L per nasal cannula, with a pulse ox of 95% comfortable in no apparent distress. HEAD: Normocephalic/atraumatic. EYES: Normal reaction of pupils, equal size. Conjunctiva pink, sclera white. NOSE: Clear with pink turbinates. THROAT: No erythema or exudates. NECK: No masses, no JVD, no thyroid enlargement, no adenopathy. CHEST: No chest wall deformity. Symmetrical expansion. LUNGS: Diminished breath sounds bilaterally, with a few scattered rhonchi, and end expiratory wheezes CVS: Regular rate and rhythm, normal S1 and S2, no gallops, no murmurs, no rubs ABDOMEN: Soft, nontender. No hepatosplenomegaly, normal bowel sounds, no guarding or rigidity. EXTREMITIES: No clubbing, no edema, no cyanosis, 2+ pulses and upper and lower extremities. MUSCULOSKELETAL: Muscle strength and tone normal. SPINE: No scoliosis or deformity SKIN: No rashes CENTRAL NERVOUS SYSTEM: Alert and oriented -3. No focal deficits, tone is normal in all 4 extremities. PSYCHIATRIC: Alert and oriented -3. Appropriate affect. Intact judgment and insight. - Labs CBC & Chem 7: 03/23/18 08:02 03/24/18 07:19 Labs: Abnormal Lab Results - Last 24 Hours (Table) 03/23/18 03/24/18 Range/Units 08:02 07:19 Chloride 108 H (98-107) mmol/L BUN 39 H (9-20) mg/dL Glucose 120 H (74-99) mg/dL Calcium 8.0 L (8.4-10.2) mg/dL Procalcitonin 0.71 H (0.02-0.09) ng/mL Microbiology - Last 24 Hours (Table) 03/22/18 21:15 Blood Culture Gram Stain - Preliminary Blood Blood Culture - Preliminary Coagulase Negative Staph 03/22/18 21:15 Blood Culture - Final Blood Assessment and Plan Plan: Assessment: #1. Acute hypoxemic respiratory failure, secondary to acute exacerbation of chronic congestive heart failure, although proBNP was within normal limits, chest x-ray showed diffuse interstitial pattern and small bilateral pleural effusions consistent with fluid overload. #2. Elevated pro-calcitonin suggesting possibility of bacterial infection, could be related to underlying pneumonia, community acquired #3. History of chronic and persistent atrial fibrillation on chronic anticoagulation #4. COPD #5. History of right upper lobe wedge resection according to the patient, was done in June 2017 for lung cancer, and the details are not available to us at this time, request was sent to the [facility] in [place]. Patient did not receive any chemo or radiation following the resection #6. Hypertension, hyperlipidemia #7. Previous myocardial infarction #8. Obstructive sleep apnea, on CPAP therapy #9. Coronary artery disease, with history of previous bypass surgery Plan: Continue with current antibiotic coverage, continue with nebulized bronchodilators, CPAP at his home settings, procalcitonin level was noted, could be related to underlying pneumonia. Although patient clinically presented with symptoms more consistent with acute exacerbation of congestive heart failure, has no cough, no phlegm production, no fever or chills no leukocytosis. Awaiting records from the [facility] facility in [place] regarding his right upper lobe wedge resection for history of lung cancer. Continue nebulized bronchodilators, steroids, we'll continue to follow I performed a history & physical examination of the patient and discussed their management with my nurse practitioner, Marie Mahmood. I reviewed the nurse practitioner's note and agree with the documented findings and plan of care. Lung sounds are few scattered end expiratory wheezes, and rhonchi. The findings and the impression was discussed with the patient. I attest to the documentation by the nurse practitioner. Time with Patient: Less than 30
[2018-03-24] MEDS: FUROSEMIDE 80 MG TAB PO SCH (16:57)
[2018-03-24] MEDS: AZITHROMYCIN 500 MG TAB PO SCH (17:48)
[2018-03-24 20:22] LABS: Glucose,Whole Blood 119 mg/dL (75-99)
[2018-03-24] MEDS: ATORVASTATIN 10 MG TAB PO SCH (21:10)
--- NOTE | 2018-03-24 23:58 | CONS ---
CONSULTATION DATE OF SERVICE: 03/24/2018. REASON FOR CONSULTATION: 1. Positive blood culture. 2. Pneumonia. HISTORY OF PRESENT ILLNESS: The patient is a 77-year-old male presenting to the ER at [facility] 03/22/2018 with chief complaint of increasing shortness of breath has been progressively getting worse over the last 5 days before he presented to the hospital. The patient denies having any chest pain. He did have some cough which is dry in nature. Denies having any URI symptoms. Some chills but denies any high-grade fever or rigors. No nausea, vomiting, abdominal pain or any diarrhea. With these symptoms, the patient was evaluated by the ER physician. The patient did have a chest x-ray on presentation, which showed bronchopneumonia, right greater than the left. Patient has been admitted to the hospital. The patient did not have any high-grade fever. Highest temperature has been 99.3. His white count has been normal at 10.5. His procalcitonin level is elevated at 0.71. The patient has been treated with Rocephin and Zithromax. He did have blood cultures drawn, which came back positive gram-positive cocci the prompted this infectious diseases consultation. Vancomycin has been added, however, the patient did mention overall improvement in his breathing. No nausea, vomiting, and no diarrhea. REVIEW OF SYSTEMS: Positive points have been mentioned in HPI. The rest of his systems have been negative. PAST MEDICAL HISTORY: Atrial fibrillation, coronary artery disease, heart failure, COPD, CVA, TIA, hypertension, hyperlipidemia, NH, sleep apnea. PAST SURGICAL HISTORY: Coronary artery bypass grafting, appendectomy, colonoscopy, EGD. SOCIAL HISTORY: Remote history of smoking. No drinking or drug use. FAMILY HISTORY: Father is of pancreatic cancer. Mother with diabetes mellitus. ALLERGIES: No known drug allergies. MEDICATIONS: Medications include the patient is currently on: 1. Vancomycin 1750 every 6 hours. 2. Flomax. 3. Senokot. 4. Protonix. 5. Nitrostat. 6. Imdur. 7. Lasix. 8. Folic acid. 9. Iron sulfate. 10.Colace. 11.Rocephin 1 g daily. 12.Coreg. 13.Zithromax. 14.Lipitor. 15.Vitamins C. 16.Eliquis. 17.DuoNeb. PHYSICAL EXAMINATION: Blood pressure is 122/61 with a pulse of 69, temperature 97.4, he is 97% on room air. GENERAL DESCRIPTION: An elderly male up in the chair in no distress. No tachypnea or accessory muscle of respiration use. HEENT: Shows no pallor or scleral icterus. Oral mucosa is dry. No pharyngeal erythema or thrush. NECK: Trachea central. No thyromegaly. LUNGS: Unlabored breathing. Decreased breath sounds. No wheeze. HEART: S1, S2. Regular rate and rhythm. ABDOMEN: Soft, no tenderness. No guarding or rigidity. EXTREMITIES: No edema of the feet. SKIN: No rash or mass palpable. NEUROLOGIC: The patient is awake, alert, oriented x3. Mood and affect normal. LABS: BUN of 39, creatinine is 1.23, white count of 8.9, hemoglobin of 12.6, 0.71. Blood culture 1 out of 2 positive organisms. . Chest x-ray report as mentioned above. DIAGNOSTIC IMPRESSION AND PLAN: 1. Patient with a positive blood culture with coagulase-negative staphylococcus, likely skin contamination. Clinically doubt source of any infection. Would recommend to discontinue vancomycin to decrease risk of toxicity. 2. The patient with increasing shortness of breath, which is likely multifactorial, underlying pneumonia not entirely excluded, likely community-acquired. PLAN: 1. Discontinue vancomycin. 2. Will try to obtain sputum for Gram stain, culture and sensitivity. 3. Patient to continue with Rocephin 1 g daily and Zithromax. Will follow clinical condition. Will continue to further adjust medication as needed. Thank you for this consultation. Will follow this patient along with you. MMODL / IJN: [id number] /
--- NOTE | 2018-03-25 00:08 | P.PN ---
Subjective Progress Note Date: 03/24/18 Principal diagnosis: Bilateral basilar pneumonia Acute CHF with ejection fraction unknown Patient is a 77-year-old male with a known history of chronic atrial fibrillation on anticoagulation, and coronary artery disease, obstructive sleep apnea currently not using CPAP, hypertension, hyperlipidemia, history of CABG and AR came to ER with complaints of shortness of breath getting worse for the past 1 week. The patient has been having worsening leg swelling, orthopnea and shortness of breath. Patient otherwise denied any history of congestive heart failure. No fever no chills. Patient did complain of sharp costochondral chest pain with deep breathing as well. No fever no chills. No cough or sputum production. Denied any recent illnesses. No recent travel. No sick contacts at home. Patient says that he gained weight from about 200 pounds at 215 pounds in that period time. Patient does have a history of smoking. Chest x-ray showed findings suggestive of bibasilar bronchopneumonia. Right greater than left. EKG showed atrial fibrillation BNP 829 Troponin 1 negative 03/23/2018 Patient says that his breathing is better today. Patient is being continued on IV Lasix 40 mg twice daily. Patient had repeat chest x-ray showed possible underlying pulmonary nodule. CT chest with contrast as outpatient was heart failure recently stabilized.. Pulmonary and cardiology is following. 2-D echo was done as well. No complains of fever or chills. No nausea vomiting or abdominal pain. No diarrhea. No cough plus of chest pain. No other acute overnight issues. Pro-Calcitonin 0.71 elevated. Chest x-ray showed diffuse interstitial pattern with small bilateral effusion and basilar infiltrate. There is nodular appearing density at the right lung base. 2.4 cm may represent intrapulmonary mass. 03/24/2018 Patient is currently sitting in the chair comfortably. Leg swelling is much improved. Patient was started back on home dose of Lasix 80 mg twice a day. Patient was found have positive blood cultures and which grew coagulase- negative staph aureus. Vancomycin has been discontinued. ID has seen the patient as well. Patient is symptomatically improving otherwise. No fever no chills. Still requiring O2 via nausea cannula. Continued on antibiotics in the form of ceftriaxone and azithromycin for pneumonia. Anticipate discharge in next 24 hours with more clinical improvement. No other acute overnight issues. Current medications. Active Medications Active Medications Albuterol/Ipratropium (Duoneb 0.5 Mg-3 Mg/3 Ml Soln) 3 ml INHALATION RT-Q4H [facility] Last Admin: 03/24/18 23:52 Dose: 3 ml Apixaban (Eliquis) 2.5 mg PO BID [facility] Last Admin: 03/24/18 21:10 Dose: 2.5 mg Ascorbic Acid (Vitamin C) 250 mg PO DAILY [facility] Last Admin: 03/24/18 09:45 Dose: 250 mg Atorvastatin Calcium (Lipitor) 10 mg PO HS [facility] Last Admin: 03/24/18 21:10 Dose: 10 mg Azithromycin (Zithromax) 500 mg PO Q24H [facility] Last Admin: 03/24/18 17:48 Dose: 500 mg Budesonide/Formoterol Fumarate (Symbicort 160-4.5 Mcg Inhaler) 2 puff INHALATION RT-BID [facility] Last Admin: 03/24/18 20:51 Dose: 2 puff Carvedilol (Coreg) 12.5 mg PO BID-W/MEALS [facility] Last Admin: 03/24/18 16:57 Dose: 12.5 mg Cyanocobalamin (Vitamin B-12) 250 mcg PO DAILY [facility] Last Admin: 03/24/18 09:44 Dose: 250 mcg Docusate Sodium (Colace) 100 mg PO BID [facility] Last Admin: 03/24/18 21:10 Dose: 100 mg Ferrous Sulfate (Feosol) 325 mg PO TID [facility] Last Admin: 03/24/18 21:10 Dose: 325 mg Folic Acid (Folic Acid) 1 mg PO DAILY@1200 [facility] Last Admin: 03/24/18 11:54 Dose: 1 mg Furosemide (Lasix) 80 mg PO BID@0900,1600 [facility] Last Admin: 03/24/18 16:57 Dose: 80 mg Ceftriaxone Sodium 1,000 mg/ (Sodium Chloride) 50 mls @ 100 mls/hr IVPB Q24HR [facility] Stop: 03/26/18 09:01 Last Admin: 03/24/18 13:30 Dose: 100 mls/hr Isosorbide Mononitrate (Imdur) 30 mg PO BID [facility] Last Admin: 03/24/18 21:10 Dose: 30 mg Miscellaneous Information (Pneumonia Protocol Utilized) 1 each PO ONCE PRN PRN Reason: Per Protocol Nitroglycerin (Nitrostat) 0.4 mg SUBLINGUAL Q5M PRN PRN Reason: Chest Pain Pantoprazole Sodium (Protonix) 40 mg PO AC-BRKFST [facility] Last Admin: 03/24/18 09:49 Dose: 40 mg Senna (Senokot) 8.6 mg PO BID PRN PRN Reason: Constipation Tamsulosin HCl (Flomax) 0.4 mg PO DAILY [facility] Last Admin: 03/24/18 09:48 Dose: 0.4 mg Objective - Vital Signs Vital signs: Vital Signs Temp 97.4 F L 03/24/18 15:00 Pulse 78 03/24/18 20:59 Resp 16 03/24/18 16:10 BP 122/61 03/24/18 15:00 Pulse Ox 97 03/24/18 16:13 Intake & Output 03/24/18 03/24/18 03/25/18 06:59 18:59 06:59 Intake Total 1266 Output Total 950 250 Balance -950 1016 Weight 97.522 kg Intake: Oral 1266 Output: Urine 950 250 Other: Voiding Method Urinal - Exam PHYSICAL EXAMINATION: Patient is lying in the bed comfortably, no acute distress, awake alert and oriented.. HEENT: Normocephalic. Neck is supple. Pupils reactive. Nostrils clear. Oral cavity is moist. Ears reveal no drainage. Neck reveals no JVD, carotid bruits, or thyromegaly. CHEST EXAMINATION: Trachea is central. Symmetrical expansion. Bibasilar coarse breath sounds. No wheezing crackles.. CARDIAC: Normal S1, S2 with no gallops. No murmurs ABDOMEN: Soft. Bowel sounds normal. No organomegaly. No abdominal bruits. Extremities: Trace edema. No clubbing or cyanosis Neurologically awake, alert, oriented x3 with well-coordinated movements. No focal deficits noted Skin: No rash or skin lesions. Psychiatric: Coperative. Nonsuicidal Musculoskeletal: No joint swelling or deformity. Normal range of motion. - Labs CBC & Chem 7: 03/23/18 08:02 03/24/18 07:19 Labs: Abnormal Lab Results - Last 24 Hours (Table) 03/24/18 03/24/18 Range/Units 07:19 20:21 Chloride 108 H (98-107) mmol/L BUN 39 H (9-20) mg/dL Glucose 120 H (74-99) mg/dL POC Glucose (mg/dL) 119 H (75-99) mg/dL Calcium 8.0 L (8.4-10.2) mg/dL Microbiology - Last 24 Hours (Table) 03/22/18 21:15 Blood Culture Gram Stain - Preliminary Blood Blood Culture - Preliminary Coagulase Negative Staph 03/22/18 21:15 Blood Culture - Final Blood Assessment and Plan Assessment: Acute CHF with systolic dysfunction. Ejection fraction mildly reduced 45-50% Bibasilar bronchopneumonia Coagulase-negative staph bacteremia. Possible contaminant. Vancomycin has been discontinued. Right lower lung suspect lung nodule per chest x-ray. CT chest as outpatient. History of wedge resection right lung lobe. Obtain records from [facility] Chronic atrial fibrillation on anticoagulation with Eliquis. Coronary artery disease and history of CABG History of CVA/TIA COPD. Not in exacerbation Previous history of smoking Hypertension Hyperlipidemia History of AR Obstructive sleep apnea not on CPAP at home. Patient stopped using. Small hiatal hernia Chronic kidney disease stage III BPH continue with Coreg and statins. Cardiology was consulted. Plan: Patient was continued on IV Lasix 40 mg twice a day. Changed back to Lasix 80 mg twice a day by mouth.. Continue with antibiotics in the form of ceftriaxone and azithromycin. Cardiology and pulmonary is following. o2-D echocardiogram was done.. Continue current management and further recommendations based on the clinical course. Prognosis is guarded with multiple medical problems and comorbid conditions. Monitor renal function. Discussed with the family in detail at bedside. Time with Patient: Greater than 30
[2018-03-25] MEDS: IPRATROPIUM-ALBUTEROL 3 ML NEB INHALATION SCH ×4 (03:18→16:07)
[2018-03-25] MEDS: SYMBICORT 160-4.5 MCG INHALER INHALATION SCH (06:53)
[2018-03-25 07:45] VITALS: BP 119/63; RESP 18; TEMP 98.7
[2018-03-25 08:33] LABS: Basophils % (A) 0 %; Eosinophils # (A) 0.1 k/uL (0-0.7); Eosinophils % (A) 1 %; HCT 37.9 % (39.0-53.0); HGB 12.3 gm/dL (13.0-17.5); Lymphocytes # (A) 0.8 k/uL (1.0-4.8); Lymphocytes % (A) 9 %; MCH 32.1 pg (25.0-35.0); MCHC 32.3 g/dL (31.0-37.0); MCV 99.2 fL (80.0-100.0); Mean Platelet Volume 8.2; Monocytes # (A) 0.7 k/uL (0-1.0); Monocytes % (A) 8 %; Neutrophils # (A) 6.6 k/uL (1.3-7.7); Neutrophils % (A) 79 %; Platelet Count 192 k/uL (150-450); RBC 3.83 m/uL (4.30-5.90); RDW 13.9 % (11.5-15.5); WBC 8.3 k/uL (3.8-10.6)
[2018-03-25 08:43] LABS: Potassium 3.8 mmol/L (3.5-5.1)
[2018-03-25] MEDS: ASCORBIC ACID 500 MG TAB PO SCH (10:15)
[2018-03-25] MEDS: APIXABAN 2.5 MG TABLET PO SCH (10:15)
[2018-03-25] MEDS: FERROUS SULFATE 325 MG TAB PO SCH (10:15)
[2018-03-25] MEDS: TAMSULOSIN 0.4 MG CAP.ER.24H PO SCH (10:16)
[2018-03-25] MEDS: FOLIC ACID 1 MG TAB PO SCH (10:16)
[2018-03-25] MEDS: PANTOPRAZOLE 40 MG TABLET PO SCH (10:16)
[2018-03-25] MEDS: CARVEDILOL 12.5 MG TAB PO SCH (10:16)
[2018-03-25] MEDS: FUROSEMIDE 80 MG TAB PO SCH (10:16)
[2018-03-25] MEDS: CYANOCOBALAMIN 500 MCG TAB PO SCH (10:16)
[2018-03-25] MEDS: DOCUSATE 100 MG CAP PO SCH (10:16)
[2018-03-25] MEDS: ISOSORBIDE MONONITRATE ER 30 MG TAB.ER.24H PO SCH (10:16)
[2018-03-25 11:02] VITALS: PULSE 64
--- NOTE | 2018-03-25 15:38 | PN ---
PROGRESS NOTE DATE OF SERVICE: 03/25/2018 REASON FOR FOLLOWUP: 1. Leukocytosis, possible. 2. Pneumonia. INTERVAL HISTORY: The patient is currently afebrile. He is breathing more comfortably. Denies having any chest pain. Occasional cough. No abdominal pain and no diarrhea. PHYSICAL EXAMINATION: Blood pressure is 119/53, pulse of 52, temperature 98.7, he is 93% on room air. The patient is a elderly male, up in the bed in no distress. RESPIRATORY SYSTEM: Unlabored breathing clear to auscultation anteriorly. HEART: S1, S2. Regular rate and rhythm. ABDOMEN: Soft, no tenderness. LABS: Hemoglobin 12.2, white count 8.3 with a BUN of 36, creatinine 1.08. Blood culture repeat has been negative. DIAGNOSTIC IMPRESSION AND PLAN: 1. Patient with a positive blood culture with Escherichia coli. 2. Likely skin contamination, no need for any therapy for the same. 3. Patient with pneumonia, possible community-acquired, overall improvement also with the patient to finish therapy with a course of oral Ceftin 500 mg b.i.d. for about 5 days. Plan of care was discussed with the admitting physician. MMANNALISEL / KATE: [id number] /
--- NOTE | 2018-03-25 22:16 | P.DS ---
Providers Date of admission: 03/22/18 20:16 Expected date of discharge: 03/25/18 Attending physician: Bridget Maurice Consults: 03/22/18 20:16 Consult Physician Routine Consulting Provider: Ravi Dunaway Consult Reason/Comments: CHF, atrial flutter Do you want consulting provider notified?: Yes 03/23/18 17:29 Consult Physician Routine Consulting Provider: Fior Olivo Consult Reason/Comments: POSITIVE BLOOD CULTURE Do you want consulting provider notified?: Yes Primary care physician: [facility] Hospital Course: Discharge diagnosis Acute CHF with systolic dysfunction. Ejection fraction mildly reduced 45-50%. Given IV Lasix. Bibasilar bronchopneumonia Coagulase-negative staph bacteremia. Possible contaminant. Vancomycin has been discontinued. Right lower lung suspect lung nodule per chest x-ray. CT chest as outpatient. History of wedge resection right lung lobe. Obtain records from [facility] Chronic atrial fibrillation on anticoagulation with Eliquis. Coronary artery disease and history of CABG History of CVA/TIA COPD. Not in exacerbation Previous history of smoking Hypertension Hyperlipidemia History of IA Obstructive sleep apnea not on CPAP at home. Patient stopped using. Small hiatal hernia Chronic kidney disease stage III BPH Hospital course Patient is a 77-year-old male with a known history of chronic atrial fibrillation on anticoagulation, and coronary artery disease, obstructive sleep apnea currently not using CPAP, hypertension, hyperlipidemia, history of CABG and IA came to ER with complaints of shortness of breath getting worse for the past 1 week. The patient has been having worsening leg swelling, orthopnea and shortness of breath. Patient otherwise denied any history of congestive heart failure. No fever no chills. Patient did complain of sharp costochondral chest pain with deep breathing as well. No fever no chills. No cough or sputum production. Denied any recent illnesses. No recent travel. No sick contacts at home. Patient says that he gained weight from about 200 pounds at 215 pounds in that period time. Patient does have a history of smoking. Chest x-ray showed findings suggestive of bibasilar bronchopneumonia. Right greater than left. EKG showed atrial fibrillation BNP 829 Troponin 1 negative 03/23/2018 Patient says that his breathing is better today. Patient is being continued on IV Lasix 40 mg twice daily. Patient had repeat chest x-ray showed possible underlying pulmonary nodule. CT chest with contrast as outpatient was heart failure recently stabilized.. Pulmonary and cardiology is following. 2-D echo was done as well. No complains of fever or chills. No nausea vomiting or abdominal pain. No diarrhea. No cough plus of chest pain. No other acute overnight issues. Pro-Calcitonin 0.71 elevated. Chest x-ray showed diffuse interstitial pattern with small bilateral effusion and basilar infiltrate. There is nodular appearing density at the right lung base. 2.4 cm may represent intrapulmonary mass. 03/24/2018 Patient is currently sitting in the chair comfortably. Leg swelling is much improved. Patient was started back on home dose of Lasix 80 mg twice a day. Patient was found have positive blood cultures and which grew coagulase- negative staph aureus. Vancomycin has been discontinued. ID has seen the patient as well. Patient is symptomatically improving otherwise. No fever no chills. Still requiring O2 via nausea cannula. Continued on antibiotics in the form of ceftriaxone and azithromycin for pneumonia. Anticipate discharge in next 24 hours with more clinical improvement. 03/25/2018 Patient denied a complaints of chest pain or shortness of breath today. No fever no chills. No acute overnight issues. Symptomatically much improved. Stable to be discharged home. Patient was recommended to follow with [facility] for further management. Discharge physical examination was done PHYSICAL EXAMINATION: Patient is lying in the bed comfortably, no acute distress, awake alert and oriented.. HEENT: Normocephalic. Neck is supple. Pupils reactive. Nostrils clear. Oral cavity is moist. Ears reveal no drainage. Neck reveals no JVD, carotid bruits, or thyromegaly. CHEST EXAMINATION: Trachea is central. Symmetrical expansion. Bibasilar coarse breath sounds. No wheezing crackles.. CARDIAC: Normal S1, S2 with no gallops. No murmurs ABDOMEN: Soft. Bowel sounds normal. No organomegaly. No abdominal bruits. Extremities: Trace edema. No clubbing or cyanosis Neurologically awake, alert, oriented x3 with well-coordinated movements. No focal deficits noted Skin: No rash or skin lesions. Psychiatric: Coperative. Nonsuicidal Musculoskeletal: No joint swelling or deformity. Normal range of motion. Vital Signs - 24 hr 03/24/18 03/24/18 03/25/18 23:05 23:55 00:07 Temperature 97.7 F Pulse Rate 70 70 Pulse Rate [ 61 Pulse Oximetery ] Respiratory 17 Rate Blood Pressure 128/70 [Left Arm] O2 Sat by Pulse 96 Oximetry 03/25/18 03/25/18 03/25/18 00:20 06:53 07:07 Temperature Pulse Rate 63 68 Pulse Rate [ 61 Pulse Oximetery ] Respiratory Rate Blood Pressure [Left Arm] O2 Sat by Pulse 93 L Oximetry 03/25/18 03/25/18 03/25/18 07:37 10:55 11:06 Temperature 98.7 F Pulse Rate 64 64 Pulse Rate [ 62 Pulse Oximetery ] Respiratory 17 Rate Blood Pressure 119/63 [Left Arm] O2 Sat by Pulse 93 L Oximetry Patient Condition at Discharge: Serious Plan - Discharge Summary Discharge Rx Participant: No New Discharge Prescriptions: New Cefuroxime Axetil [Ceftin] 500 mg PO BID 4 Days #8 tab Continue Tiotropium 18 Mcg/Puff [Spiriva] 1 cap INHALATION RT-DAILY Folic Acid 1 mg PO DAILY Albuterol Inhaler [Ventolin Hfa Inhaler] 1 - 2 puff INHALATION RT-Q6H PRN PRN Reason: Shortness Of Breath Budesonide-Formot 160-4.5 Mcg [Symbicort 160-4.5 Mcg Inhaler] 2 puff INHALATION RT-BID Nitroglycerin Sl Tabs [Nitrostat] 0.4 mg SUBLINGUAL Q5M PRN PRN Reason: Chest Pain Pantoprazole Sodium [Protonix] 40 mg PO DAILY #30 tablet.dr Docusate [Colace] 100 mg PO BID Ferrous Sulfate [Iron] 325 mg PO TID Isosorbide Mononitrate [Isosorbide Mononitrate ER] 30 mg PO BID Tamsulosin [Flomax] 0.4 mg PO DAILY Cyanocobalamin 100mcg 100 mcg PO DAILY Simvastatin [Zocor] 20 mg PO HS Apixaban [Eliquis] 2.5 mg PO BID Ascorbic Acid [Vitamin C] 250 mg PO DAILY Sennosides [Senna] 8.6 mg PO BID PRN PRN Reason: Constipation Ipratropium-Albuterol Nebulize [Duoneb 0.5 mg-3 mg/3 ml Soln] 3 ml INHALATION RT-QID Furosemide [Lasix] 80 mg PO BID Carvedilol [Coreg] 12.5 mg PO BID Discharge Medication List Tiotropium 18 Mcg/Puff [Spiriva] 1 cap INHALATION RT-DAILY 07/13/13 [History] Albuterol Inhaler [Ventolin Hfa Inhaler] 1 - 2 puff INHALATION RT-Q6H PRN [History] Budesonide-Formot 160-4.5 Mcg [Symbicort 160-4.5 Mcg Inhaler] 2 puff INHALATION RT-BID 10/08/14 [History] Folic Acid 1 mg PO DAILY 10/08/14 [History] Nitroglycerin Sl Tabs [Nitrostat] 0.4 mg SUBLINGUAL Q5M PRN 03/19/16 [History] Pantoprazole Sodium [Protonix] 40 mg PO DAILY #30 tablet. 11/23/16 [Rx] Cyanocobalamin 100mcg 100 mcg PO DAILY 11/09/17 [History] Docusate [Colace] 100 mg PO BID 11/09/17 [History] Ferrous Sulfate [Iron] 325 mg PO TID 11/09/17 [History] Isosorbide Mononitrate [Isosorbide Mononitrate ER] 30 mg PO BID 11/09/17 [ History] Tamsulosin [Flomax] 0.4 mg PO DAILY 11/09/17 [History] Simvastatin [Zocor] 20 mg PO HS 01/01/18 [History] Apixaban [Eliquis] 2.5 mg PO BID 01/04/18 [History] Ascorbic Acid [Vitamin C] 250 mg PO DAILY 03/22/18 [History] Carvedilol [Coreg] 12.5 mg PO BID 03/22/18 [History] Furosemide [Lasix] 80 mg PO BID 03/22/18 [History] Ipratropium-Albuterol Nebulize [Duoneb 0.5 mg-3 mg/3 ml Soln] 3 ml INHALATION RT -QID 03/22/18 [History] Sennosides [Senna] 8.6 mg PO BID PRN 03/22/18 [History] Cefuroxime Axetil [Ceftin] 500 mg PO BID 4 Days #8 tab 03/25/18 [Rx] Follow up Appointment(s)/Referral(s): Ravi Dunaway MD [STAFF PHYSICIAN] - 2 Weeks (Please call and schedule per family request.) [facility] [Primary Care Provider] - 03/31/18 3:00 pm (had existing appointment) Patient Instructions/Handouts: Pneumonia (DC) Discharge Disposition: HOME SELF-CARE
== END 2018-03-25 16:09 | disposition home or self-care (01) | DRG 291 ==
LOC: EC 17:14 → 4SSUR 20:16
PROVIDERS: ADMIT Internal Medicine; ATTEND Internal Medicine
DX: I13.0 Hypertensive heart and chronic kidney disease with heart failure and stage 1 through stage 4 chronic kidney disease, or unspecified chronic kidney disease (principal); I50.23 Acute on chronic systolic (congestive) heart failure; J18.0 Bronchopneumonia, unspecified organism; J96.01 Acute respiratory failure with hypoxia; I48.1 Persistent atrial fibrillation; I48.92 Unspecified atrial flutter; J44.0 Chronic obstructive pulmonary disease with (acute) lower respiratory infection; J44.1 Chronic obstructive pulmonary disease with (acute) exacerbation; E78.5 Hyperlipidemia, unspecified; G47.33 Obstructive sleep apnea (adult) (pediatric); I25.2 Old myocardial infarction; I25.10 Atherosclerotic heart disease of native coronary artery without angina pectoris; I27.20 Pulmonary hypertension, unspecified; I45.10 Unspecified right bundle-branch block; I48.2 Chronic atrial fibrillation; K44.9 Diaphragmatic hernia without obstruction or gangrene; K59.00 Constipation, unspecified; N18.3 Chronic kidney disease, stage 3 (moderate); N40.0 Benign prostatic hyperplasia without lower urinary tract symptoms; Z79.01 Long term (current) use of anticoagulants; Z79.51 Long term (current) use of inhaled steroids; Z79.899 Other long term (current) drug therapy; Z80.0 Family history of malignant neoplasm of digestive organs; Z83.3 Family history of diabetes mellitus; Z85.118 Personal history of other malignant neoplasm of bronchus and lung; Z86.73 Personal history of transient ischemic attack (TIA), and cerebral infarction without residual deficits; Z87.891 Personal history of nicotine dependence; Z95.1 Presence of aortocoronary bypass graft; I25.5 Ischemic cardiomyopathy; I08.3 Combined rheumatic disorders of mitral, aortic and tricuspid valves; R91.1 Solitary pulmonary nodule; Z90.2 Acquired absence of lung [part of]; Z86.010 Personal history of colon polyps
CPT/HCPCS: 36415; 71046; 80048; 80053; 82550; 82553; 83735; 83880; 84145; 84484; 85025; 85610; 85730; 87040; 93005; 93306; 94640; 94760; 96374; 96375; 99291

== ENCOUNTER → 2018-05-21 | Outpatient (CLI) | payer OTHER, MEDICARE ==
--- NOTE | 2018-05-23 16:19 | PE ---
EXAMINATION TYPE: PET CT fusion skull to thigh DATE OF EXAM: 05/21/2018 COMPARISON: Chest x-ray dated 03/23/2018 HISTORY: Lung cancer. Surgical resection for right sided lung cancer. No chemotherapy or radiation tr eatment. TECHNIQUE: Following the intravenous administration of 14.67 mCi of F-18 FDG, whole body images are performed from the skull base to the midthigh. Images are reviewed on the computer in the coronal, a xial, and sagittal planes. Reconstructed rotating images are created on independent workstation and reviewed on the computer. A localization and attenuation correction CT is performed in conjunction with the PET scan. SCAN: Initial treatment strategy. FINDINGS: Thoracic background: 2.32 Abdominal background: 3.55 SKULL BASE AND NECK: No suspicious hypermetabolic uptake. CHEST, MEDIASTINUM, AND HILAR REGION: No suspicious hypermetabolic uptake. ABDOMEN AND PELVIS: No suspicious hypermetabolic uptake. OSSEOUS STRUCTURES: Multifocal uptake is not above mediastinal background OTHER CT: Mild centrilobular emphysematous changes are noted. There has been surgical resection with partial lobectomy of the right upper lobe. Punctate 2 mm pulmonary nodule along the right upper lobe anteriorly on series 3 image 90 is below the threshold of PET CT. The previously suspected mass on th e recent chest radiograph does not persist. Multifocal subsegmental atelectasis is noted. Pleural par enchymal thickening posteriorly along the left lower lobe is not hypermetabolic. Post-CABG changes the chest are noted. Extensive calcific atheromatous change of the thoracic aorta i s present. The pulmonary arteries are enlarged, that may clinically correlate with underlying pulmona ry arterial hypertension. Moderate hiatal hernia is noted. There is a nodular contour of the liver with suspected underlying hepatocellular disease. Cholelithia sis is noted. Numerous colonic diverticula are present without pericolonic fat stranding. Right renal cyst is exophytic. Smaller left regional lesion is too small to accurately characterize. Extensive a therosclerosis is seen of the abdominal aorta and its branches. Right postsurgical change of the righ t hip creates spray artifact and partially obscures direct surrounding visualization. There is a nonspecific right iliac sclerotic focus and degenerative changes of the spine. IMPRESSION: 1. Partial lobectomy of the right upper lobe. No hypermetabolic activity to suggest metastasis within the chest, abdomen, or pelvis. 2. Nodular contour the liver is seen with suspicion for underlying hepatocellular disease. 3. 2 mm right upper lobe pulmonary nodule is below the threshold of PET CT and short-term surveillanc e in this high-risk patient is recommended in 6 months.
== END | disposition home or self-care (01) ==
LOC: RADPETMAIN 11:10
PROVIDERS: ATTEND Physician Assistant Medical
DX: C34.91 Malignant neoplasm of unspecified part of right bronchus or lung (principal); Z98.890 Other specified postprocedural states
CPT/HCPCS: 78815; A9552

== ENCOUNTER 2018-06-03 09:49 | Emergency (ER) | payer OTHER, MEDICARE ==
[2018-06-03] MEDS ORDERED: MORPHINE SULFATE 4 MG/ML SYRINGE IM STA (10:16)
--- NOTE | 2018-06-03 10:42 | ED ---
General Adult HPI - General Chief complaint: Abdominal Pain Stated complaint: Abd Pain-constipated Time Seen by Provider: 06/03/18 10:00 Source: patient, RN notes reviewed, old records reviewed Mode of arrival: wheelchair Limitations: no limitations - History of Present Illness Initial comments: 77-year-old male with multiple medical problems presenting for evaluation of constipation, decreased stool output and rectal pain. Patient's states that over the past 3 days he has had no bowel movement. Prior to this he had difficulty passing stool. He does report some mild lower anterior abdominal pain associated with this. No dysuria or hematuria. No vomiting. No fever or chills. Pain is predominantly located to his rectum. He denies any testicular pain or swelling. - Related Data Home Medications Medication Instructions Recorded Confirmed Tiotropium 18 Mcg/Puff [Spiriva] 1 cap INHALATION RT-DAILY 07/13/13 06/03/18 Albuterol Inhaler [Ventolin Hfa 1 - 2 puff INHALATION RT-Q6H PRN 10/08/14 06/03/18 Inhaler] Budesonide-Formot 160-4.5 Mcg 2 puff INHALATION RT-BID 10/08/14 06/03/18 [Symbicort 160-4.5 Mcg Inhaler] Folic Acid 1 mg PO DAILY 10/08/14 06/03/18 Nitroglycerin Sl Tabs [Nitrostat] 0.4 mg SUBLINGUAL Q5M PRN 03/19/16 06/03/18 Cyanocobalamin 100mcg 100 mcg PO DAILY 11/09/17 06/03/18 Ferrous Sulfate [Iron] 325 mg PO TID 11/09/17 06/03/18 Isosorbide Mononitrate [Isosorbide 30 mg PO BID 11/09/17 06/03/18 Mononitrate ER] Simvastatin [Zocor] 20 mg PO HS 01/01/18 06/03/18 Ascorbic Acid [Vitamin C] 250 mg PO DAILY 03/22/18 06/03/18 Carvedilol [Coreg] 12.5 mg PO BID 03/22/18 06/03/18 Furosemide [Lasix] 80 mg PO BID 03/22/18 06/03/18 Ipratropium-Albuterol Nebulize 3 ml INHALATION RT-QID 03/22/18 06/03/18 [Duoneb 0.5 mg-3 mg/3 ml Soln] Sennosides [Senna] 8.6 mg PO BID PRN 03/22/18 06/03/18 Metolazone [Zaroxolyn] 2.5 mg PO Q48H 06/03/18 06/03/18 Warfarin [Coumadin] 5 mg PO DAILY 06/03/18 06/03/18 Previous Rx's Medication Instructions Recorded Docusate [Colace] 100 mg PO BID #60 capsule 06/03/18 Allergies Allergy/AdvReac Type Severity Reaction Status Date / Time No Known Allergies Allergy Verified 06/03/18 10:33 Review of Systems ROS Statement: Those systems with pertinent positive or pertinent negative responses have been documented in the HPI. ROS Other: All systems not noted in ROS Statement are negative. Past Medical History Past Medical History: Atrial Fibrillation, Coronary Artery Disease (CAD), Heart Failure, COPD, CVA/TIA, Hyperlipidemia, Hypertension, Myocardial Infarction (AR), Sleep Apnea/CPAP/BIPAP Additional Past Medical History / Comment(s): blood transfusion/ANEMIA, STOPPED USING HIS CPAP MACHINE YEARS AGO, CONSTIPATION, SMALL SLIDING HIATAL HERNIA AND SMALL POLYP REMOVED.,HX MILD RENAL FAILURE. Last Myocardial Infarction Date:: HAD X2 LAST ONE 2002 History of Any Multi-Drug Resistant Organisms: None Reported Past Surgical History: Appendectomy, Coronary Bypass/CABG, Orthopedic Surgery Additional Past Surgical History / Comment(s): TRIPLE BYPASS, COLONOSCOPY/EGD, R hip sx Additional Past Anesthesia/Blood Transfusion Reaction / Comment(s): CLAUSTERPHOBIA Past Psychological History: No Psychological Hx Reported Smoking Status: Former smoker Past Alcohol Use History: None Reported Past Drug Use History: None Reported - Past Family History Father Family Medical History: Cancer Additional Family Medical History / Comment(s): of pancreatic cancer Mother Family Medical History: Diabetes Mellitus Additional Family Medical History / Comment(s): AT AGE 90 WAS IN PRETTY GOOD HEALTH FROM OLD AGE Brother(s) Family Medical History: Diabetes Mellitus Additional Family Medical History / Comment(s): 2 BROTHERS HAVE DIABETES General Exam Limitations: no limitations General appearance: alert, in no apparent distress Head exam: Present: atraumatic, normocephalic Eye exam: Present: normal appearance, PERRL ENT exam: Present: normal exam Neck exam: Present: normal inspection. Absent: tenderness, meningismus Respiratory exam: Present: normal lung sounds bilaterally. Absent: respiratory distress, wheezes Cardiovascular Exam: Present: regular rate, normal rhythm GI/Abdominal exam: Present: soft, distended (Mild generalized tenderness to palpation, no rebound or guarding). Absent: tenderness, guarding, rebound Rectal exam: Present: normal inspection, normal rectal tone. Absent: fecal impaction, hemorrhoids Neurological exam: Present: alert, oriented X3. Absent: motor sensory deficit Psychiatric exam: Present: normal affect, normal mood Course Vital Signs 06/03/18 09:55 Temperature 97.9 F Pulse Rate 75 Respiratory 16 Rate Blood Pressure 144/69 O2 Sat by Pulse 96 Oximetry Medical Decision Making - Medical Decision Making 77-year-old male presenting with chief complaint constipation and rectal pain. There is no stool in the rectal vault on examination. Patient given an enema in the emergency department. Has basketball sized bowel movement. He feels completely better, no pain. Patient is eager for discharge. Disposition Clinical Impression: Constipation Disposition: HOME SELF-CARE Condition: Good Instructions (If sedation given, give patient instructions): Constipation (ED) Prescriptions: Docusate [Colace] 100 mg PO BID #60 capsule Is patient prescribed a controlled substance at d/c from ED?: No Referrals: [facility] [Primary Care Provider] - 1-2 days Time of Disposition: 11:57
[2018-06-03 12:17] VITALS: BP 142/86; PULSE 73; RESP 18; TEMP 97.2
== END 2018-06-03 12:17 | disposition home or self-care (01) ==
LOC: EC 09:49
DX: K59.00 Constipation, unspecified (principal); K62.89 Other specified diseases of anus and rectum; I48.91 Unspecified atrial fibrillation; I25.10 Atherosclerotic heart disease of native coronary artery without angina pectoris; I11.0 Hypertensive heart disease with heart failure; I50.9 Heart failure, unspecified; J44.9 Chronic obstructive pulmonary disease, unspecified; I25.2 Old myocardial infarction; D64.9 Anemia, unspecified; Z87.891 Personal history of nicotine dependence; Z79.01 Long term (current) use of anticoagulants; Z79.51 Long term (current) use of inhaled steroids; Z79.899 Other long term (current) drug therapy; Z86.73 Personal history of transient ischemic attack (TIA), and cerebral infarction without residual deficits; Z90.49 Acquired absence of other specified parts of digestive tract; Z95.1 Presence of aortocoronary bypass graft; Z86.010 Personal history of colon polyps; Z98.890 Other specified postprocedural states; Z80.0 Family history of malignant neoplasm of digestive organs
CPT/HCPCS: 99284; 96372; J2270

== ENCOUNTER → 2018-06-14 | Outpatient (CLI) | payer MEDICARE ==
--- NOTE | 2018-06-14 08:30 | US ---
EXAMINATION TYPE: US liver DATE OF EXAM: 06/14/2018 COMPARISON: PET CLINICAL HISTORY: K76.9 abnormal finding of liver disease; patient stated has lung CA EXAM MEASUREMENTS: US imaging is technically limited due to overlying bowel gas Liver Length: 12.1 cm Gallbladder Wall: 0.6 cm CBD: 0.3 cm Right Kidney: 10.5 x 6.3 x 4.9 cm Pancreas: Limited by overlying bowel gas Liver: limitedly seen in supine, LLD and intercostal assessments Gallbladder: abnormally thickened wall, fundal wall polyp noted = 0.4 x 0.3 x 0.3cm; multiple, hyper echoic, shadowing foci seen in neck of gallbladder in supine position. Evidence for sonographic Oakes's sign: no CBD: wnl Right Kidney: No hydronephrosis or masses seen; exophytic cyst not seen due to above limitations. IMPRESSION: 1. Limited exam demonstrates a thickened gallbladder wall measuring 6 mm. Gallbladder polyp noted the re are multiple gallstones. Correlate for cholelithiasis with cholecystitis.
== END | disposition home or self-care (01) ==
LOC: RADUSWWP 07:28
DX: K80.20 Calculus of gallbladder without cholecystitis without obstruction (principal); K82.8 Other specified diseases of gallbladder
CPT/HCPCS: 76705

== ENCOUNTER 2018-09-27 20:18 | Observation (INO) | payer OTHER, MEDICARE ==
[2018-09-27] MEDS ORDERED: ASPIRIN 81 MG PO STA (21:09)
[2018-09-27 21:20] LABS: Basophils % (A) 0 %; Eosinophils # (A) 0.3 k/uL (0-0.7); Eosinophils % (A) 3 %; HCT 40.2 % (39.0-53.0); HGB 13.2 gm/dL (13.0-17.5); Lymphocytes # (A) 1.1 k/uL (1.0-4.8); Lymphocytes % (A) 13 %; MCH 31.1 pg (25.0-35.0); MCHC 32.8 g/dL (31.0-37.0); MCV 95.1 fL (80.0-100.0); Mean Platelet Volume 8.2; Monocytes # (A) 0.5 k/uL (0-1.0); Monocytes % (A) 6 %; Neutrophils # (A) 6.4 k/uL (1.3-7.7); Neutrophils % (A) 75 %; Platelet Count 153 k/uL (150-450); RBC 4.23 m/uL (4.30-5.90); RDW 14.7 % (11.5-15.5); WBC 8.5 k/uL (3.8-10.6)
--- NOTE | 2018-09-27 21:33 | XR ---
EXAMINATION: XR chest 2V DATE AND TIME: 09/27/2018 9:26 PM CLINICAL INDICATION: PHH; Pain TECHNIQUE: Departmental protocol COMPARISON: 03/23/2018 FINDINGS: Sternal sutures and mediastinal clips and EKG leads noted. The lungs are clear. The pleural spaces are negative. The cardiac silhouette is mildly enlarged. The remainder of the mediastinal silhouette is unremarkabl e. The skeletal structures and soft tissues are negative for acute findings. IMPRESSION: NO ACUTE PROCESS.
[2018-09-27 21:57] LABS: Calcium 9.1 mg/dL (8.4-10.2)
--- NOTE | 2018-09-27 22:09 | ED ---
SOB HPI - General Chief Complaint: Shortness of Breath Stated Complaint: SOB Time Seen by Provider: 09/27/18 20:55 Source: patient Mode of arrival: wheelchair Limitations: physical limitation - History of Present Illness Initial Comments: Patient is a 77-year-old male presents with a chief complaint of shortness of breath. Patient states that this happened suddenly while at a grocery store. He states his symptoms are worse with exertion, alleviated with rest. Timing is constant. Patient cannot identify inciting incident. He states that he has had this before but never this abrupt. - Related Data Home Medications Medication Instructions Recorded Confirmed Tiotropium 18 Mcg/Puff [Spiriva] 1 cap INHALATION RT-DAILY 07/13/13 09/27/18 Albuterol Inhaler [Ventolin Hfa 1 - 2 puff INHALATION RT-Q6H PRN 10/08/14 09/27/18 Inhaler] Budesonide-Formot 160-4.5 Mcg 2 puff INHALATION RT-BID 10/08/14 09/27/18 [Symbicort 160-4.5 Mcg Inhaler] Folic Acid 1 mg PO DAILY 10/08/14 09/27/18 Nitroglycerin Sl Tabs [Nitrostat] 0.4 mg SUBLINGUAL Q5M PRN 03/19/16 09/27/18 Cyanocobalamin 100mcg 100 mcg PO DAILY 11/09/17 09/27/18 Ferrous Sulfate [Iron] 325 mg PO TID 11/09/17 09/27/18 Isosorbide Mononitrate [Isosorbide 30 mg PO BID 11/09/17 09/27/18 Mononitrate ER] Simvastatin [Zocor] 20 mg PO HS 01/01/18 09/27/18 Ascorbic Acid [Vitamin C] 250 mg PO DAILY 03/22/18 09/27/18 Carvedilol [Coreg] 6.25 mg PO BID 03/22/18 09/27/18 Furosemide [Lasix] 80 mg PO BID 03/22/18 09/27/18 Ipratropium-Albuterol Nebulize 3 ml INHALATION RT-QID 03/22/18 09/27/18 [Duoneb 0.5 mg-3 mg/3 ml Soln] Sennosides [Senna] 8.6 mg PO BID PRN 03/22/18 09/27/18 Metolazone [Zaroxolyn] 2.5 mg PO Q48H 06/03/18 09/27/18 Apixaban [Eliquis] 2.5 mg PO BID 09/27/18 09/27/18 Allergies Allergy/AdvReac Type Severity Reaction Status Date / Time No Known Allergies Allergy Verified 09/27/18 20:50 Review of Systems ROS Statement: Those systems with pertinent positive or pertinent negative responses have been documented in the HPI. ROS Other: All systems not noted in ROS Statement are negative. Cardiovascular: Reports: dyspnea on exertion Past Medical History Past Medical History: Atrial Fibrillation, Coronary Artery Disease (CAD), Heart Failure, COPD, CVA/TIA, Hyperlipidemia, Hypertension, Myocardial Infarction ([place]), Sleep Apnea/CPAP/BIPAP Additional Past Medical History / Comment(s): blood transfusion/ANEMIA, STOPPED USING HIS CPAP MACHINE YEARS AGO, CONSTIPATION, SMALL SLIDING HIATAL HERNIA AND SMALL POLYP REMOVED.,HX MILD RENAL FAILURE. Last Myocardial Infarction Date:: HAD X2 LAST ONE 2002 History of Any Multi-Drug Resistant Organisms: None Reported Past Surgical History: Appendectomy, Coronary Bypass/CABG, Orthopedic Surgery Additional Past Surgical History / Comment(s): TRIPLE BYPASS, COLONOSCOPY/EGD, R hip sx Additional Past Anesthesia/Blood Transfusion Reaction / Comment(s): CLAUSTERPHOBIA Past Psychological History: No Psychological Hx Reported Smoking Status: Former smoker Past Alcohol Use History: None Reported Past Drug Use History: None Reported - Past Family History Father Family Medical History: Cancer Additional Family Medical History / Comment(s): of pancreatic cancer Mother Family Medical History: Diabetes Mellitus Additional Family Medical History / Comment(s): AT AGE 90 WAS IN PRETTY GOOD HEALTH FROM OLD AGE Brother(s) Family Medical History: Diabetes Mellitus Additional Family Medical History / Comment(s): 2 BROTHERS HAVE DIABETES General Exam Limitations: physical limitation General appearance: alert, in no apparent distress Head exam: Present: atraumatic, normocephalic Eye exam: Present: normal appearance, PERRL ENT exam: Present: normal exam Neck exam: Present: normal inspection Respiratory exam: Present: decreased breath sounds. Absent: respiratory distress, wheezes Cardiovascular Exam: Present: regular rate, normal rhythm GI/Abdominal exam: Present: soft, distended. Absent: tenderness Rectal exam: Present: deferred Extremities exam: Present: pedal edema Back exam: Present: normal inspection, full ROM Neurological exam: Present: alert, oriented X3 Psychiatric exam: Present: normal affect, normal mood Skin exam: Present: warm, dry, intact Course Vital Signs 09/27/18 09/27/18 09/27/18 20:34 21:07 21:08 Temperature 97.9 F Pulse Rate 66 65 Respiratory 18 22 22 Rate Blood Pressure 149/68 126/62 O2 Sat by Pulse 95 98 Oximetry 09/27/18 22:39 Temperature 98 F Pulse Rate 52 L Respiratory 20 Rate Blood Pressure 133/64 O2 Sat by Pulse 99 Oximetry Medical Decision Making - Medical Decision Making Patient presents with a chief complaint of shortness of breath. On initial evaluation, vital signs are stable, patient is in no acute distress. He is currently on 2 L of oxygen normally does not wear any at home. Patient states that his symptoms came on abruptly, he says he takes eliquis twice daily, PE as a cause of his symptoms don't be less likely. EKG performed at 2056 shows atrial fibrillation with a right bundle branch block, ventricular rate 67 bpm, segments are otherwise within normal limits. Compared to previous EKG performed on March 22 of this year, patient was in atrial flutter but right bundle branch block was present at that time. Waveforms are not significantly different. Patient to be evaluated with basic labs including cardiac enzymes and chest x-ray. 11:11 PM Evaluation this patient is unremarkable, chest x-ray shows no acute process. On reevaluation, the patient remains comfortable, is in no distress. Case is discussed with Dr. Powers who accepts admission for further cardiac evaluation. Dr. Dunaway placed on consult. Patient family are agreeable with this care plan. - Lab Data Result diagrams: 09/27/18 21:03 09/27/18 21:03 Lab Results 09/27/18 09/27/18 09/27/18 Range/Units 21:03 21: 21:03 WBC 8.5 (3.8-10.6) k/uL RBC 4.23 L (4.30-5.90) m/uL Hgb 13.2 (13.0-17.5) gm/dL Hct 40.2 (39.0-53.0) % MCV 95.1 (80.0-100.0) fL MCH 31.1 (25.0-35.0) pg MCHC 32.8 (31.0-37.0) g/dL RDW 14.7 (11.5-15.5) % Plt Count 153 (150-450) k/uL Neutrophils % 75 % Lymphocytes % 13 % Monocytes % 6 % Eosinophils % 3 % Basophils % 0 % Neutrophils # 6.4 (1.3-7.7) k/uL Lymphocytes # 1.1 (1.0-4.8) k/uL Monocytes # 0.5 (0-1.0) k/uL Eosinophils # 0.3 (0-0.7) k/uL Basophils # 0.0 (0-0.2) k/uL Sodium 141 (137-145) mmol/L Potassium 4.0 (3.5-5.1) mmol/L Chloride 103 (98-107) mmol/L Carbon Dioxide 29 (22-30) mmol/L Anion Gap 9 mmol/L BUN 23 H (9-20) mg/dL Creatinine 1.32 H (0.66-1.25) mg/dL Est GFR (CKD-EPI)AfAm 60 (>60 ml/min/1.73 sqM) Est GFR (CKD-EPI)NonAf 52 (>60 ml/min/1.73 sqM) Glucose 120 H (74-99) mg/dL Calcium 9.1 (8.4-10.2) mg/dL Troponin I (0.000-0.034) ng/mL NT-Pro-B Natriuret Pep 1280 pg/mL 09/27/18 Range/Units 21:03 WBC (3.8-10.6) k/uL RBC (4.30-5.90) m/uL Hgb (13.0-17.5) gm/dL Hct (39.0-53.0) % MCV (80.0-100.0) fL MCH (25.0-35.0) pg MCHC (31.0-37.0) g/dL RDW (11.5-15.5) % Plt Count (150-450) k/uL Neutrophils % % Lymphocytes % % Monocytes % % Eosinophils % % Basophils % % Neutrophils # (1.3-7.7) k/uL Lymphocytes # (1.0-4.8) k/uL Monocytes # (0-1.0) k/uL Eosinophils # (0-0.7) k/uL Basophils # (0-0.2) k/uL Sodium (137-145) mmol/L Potassium (3.5-5.1) mmol/L Chloride (98-107) mmol/L Carbon Dioxide (22-30) mmol/L Anion Gap mmol/L BUN (9-20) mg/dL Creatinine (0.66-1.25) mg/dL Est GFR (CKD-EPI)AfAm (>60 ml/min/1.73 sqM) Est GFR (CKD-EPI)NonAf (>60 ml/min/1.73 sqM) Glucose (74-99) mg/dL Calcium (8.4-10.2) mg/dL Troponin I 0.018 (0.000-0.034) ng/mL NT-Pro-B Natriuret Pep pg/mL Disposition Clinical Impression: Shortness of breath, Moderate risk chest pain, Dyspnea on exertion, LORRAINE (acute kidney injury) Disposition: ADMITTED IP TO THIS HOSP Condition: Good Referrals: [facility],Clinic [Primary Care Provider] - 1-2 days Decision to Admit Reason: Admit from EC - Out of Hospital Transfer - Req. Specs Out of Hospital Transfer - Requested Specifics: Telemetry Unit
[2018-09-27] MEDS ORDERED: NALOXONE 0.4 MG/ML 1 ML VIAL IV PRN (23:08)
[2018-09-28 05:36] LABS: Basophils % (A) 0 %; Eosinophils # (A) 0.3 k/uL (0-0.7); Eosinophils % (A) 3 %; HCT 39.1 % (39.0-53.0); HGB 12.7 gm/dL (13.0-17.5); Lymphocytes # (A) 1.1 k/uL (1.0-4.8); Lymphocytes % (A) 15 %; MCH 30.9 pg (25.0-35.0); MCHC 32.3 g/dL (31.0-37.0); MCV 95.7 fL (80.0-100.0); Mean Platelet Volume 8.1; Monocytes # (A) 0.4 k/uL (0-1.0); Monocytes % (A) 5 %; Neutrophils # (A) 5.5 k/uL (1.3-7.7); Neutrophils % (A) 74 %; Platelet Count 133 k/uL (150-450); RBC 4.09 m/uL (4.30-5.90); RDW 14.7 % (11.5-15.5); WBC 7.4 k/uL (3.8-10.6)
[2018-09-28 05:45] LABS: Calcium 8.6 mg/dL (8.4-10.2); Potassium 4.2 mmol/L (3.5-5.1)
[2018-09-28] MEDS ORDERED: FUROSEMIDE 10 MG/ML 10 ML VIAL IV STA (08:46)
[2018-09-28] MEDS ORDERED: FUROSEMIDE 40 MG TAB PO SCH (09:00)
[2018-09-28] MEDS ORDERED: METOLAZONE 2.5 MG TAB PO SCH (09:00)
[2018-09-28] MEDS: CARVEDILOL 6.25 MG TAB PO SCH ×2 (09:31→17:29)
[2018-09-28] MEDS: ISOSORBIDE MONONITRATE ER 30 MG TAB.ER.24H PO SCH ×2 (09:31→19:50)
[2018-09-28] MEDS: APIXABAN 2.5 MG TABLET PO SCH ×2 (09:31→19:50)
[2018-09-28] MEDS ORDERED: ALBUTEROL NEBULIZED 2.5 MG/3 ML INHALATION PRN (11:35)
[2018-09-28] MEDS ORDERED: SENNOSIDES 8.6 MG TAB PO PRN (11:35)
[2018-09-28] MEDS ORDERED: NITROGLYCERIN SL TABS 0.4 MG TAB SUBLINGUAL PRN (11:35)
--- NOTE | 2018-09-28 12:14 | ECHOF ---
Referral Reason:sob MEASUREMENTS -------- HEIGHT: 182.9 cm WEIGHT: 95.3 kg BP: 136/74 RVIDd: 3.3 cm (< 3.3) IVSd: 1.5 cm (0.6 - 1.1) LVIDd: 4.3 cm (3.9 - 5.3) LVPWd: 1.5 cm (0.6 - 1.1) IVSs: 1.7 cm LVIDs: 2.9 cm LVPWs: 1.7 cm LA Diam: 4.2 cm (2.7 - 3.8) LAESV Index (A-L): 36.18 ml/m Ao Diam: 2.8 cm (2.0 - 3.7) AV Cusp: 1.8 cm (1.5 - 2.6) MV EXCURSION: 14.642 mm (> 18.000) MV EF SLOPE: 81 mm/s (70 - 150) EPSS: 0.4 cm MV E Lino: 1.70 m/s MV DecT: 125 ms MV A Lino: 0.50 m/s MV E/A Ratio: 3.41 AV maxP.86 mmHg AV meanP.04 mmHg RAP: 5.00 mmHg RVSP: 69.53 mmHg FINDINGS -------- Undetermined rhythm. This was a technically difficult study with suboptimal views. The left ventricular size is normal. There is moderate concentric left ventricular hypertrophy. O verall left ventricular systolic function is mildly impaired with, an EF between 45 - 50 %. Apical anterior LV wall motion is hypokinetic. 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 LA is moderately dilated 34-39 ml/m2 The right atrium was not well visualized. 5 ml of Lumason was utilized for enhancement of images. Interatrial and interventricular septum intact. There is mild aortic valve sclerosis. The mitral valve leaflets are mildly thickened. Mild mitral annular calcification present. Mild m itral regurgitation is present. Moderate tricuspid regurgitation present. There is severe pulmonary hypertension. The right ventr icular systolic pressure, as measured by Doppler, is 69.53mmHg. Moderate pulmonic regurgitation. The aortic root size is normal. The inferior vena cava is dilated with no significant inspiratory collapse which is consistent estima latia right atrial pressure of >15 mmHg. There is no pericardial effusion. CONCLUSIONS -------- 1. Undetermined rhythm. 2. This was a technically difficult study with suboptimal views. 3. The left ventricular size is normal. 4. There is moderate concentric left ventricular hypertrophy. 5. Overall left ventricular systolic function is mildly impaired with, an EF between 45 - 50 %. 6. Apical anterior LV wall motion is hypokinetic. 7. 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 The right ventricle is mildly enlarged. 9. LA is moderately dilated 34-39 ml/m2 10. The right atrium was not well visualized. 11. 5 ml of Lumason was utilized for enhancement of images. 12. Interatrial and interventricular septum intact. 13. There is mild aortic valve sclerosis. 14. The mitral valve leaflets are mildly thickened. 15. Mild mitral annular calcification present. 16. Mild mitral regurgitation is present. 17. Moderate tricuspid regurgitation present. 18. There is severe pulmonary hypertension. 19. The right ventricular systolic pressure, as measured by Doppler, is 69.53mmHg. 20. Moderate pulmonic regurgitation. 21. The aortic root size is normal. 22. The inferior vena cava is dilated with no significant inspiratory collapse which is consistent es timated right atrial pressure of >15 mmHg. 23. There is no pericardial effusion. PNEUMATIC TOOL REPAIRER: Delmi Jang RDCS
--- NOTE | 2018-09-28 12:40 | P.HPIM ---
History of Present Illness 77-year-old pleasant male came in with compensative shortness of breath exertional. Denied any chest pain. Troponins are negative EKG did not show any significant abnormality patient does have orthopnea proximal nocturnal dyspnea a nd patient is supposed to take Lasix at home. Taking Lasix Prevacid patient had normal ejection fraction the past present echocardiac demonstrated ejection fraction of around 45-50% BNP is not highly elevated. Although patient is obese. BNP is around 400. Patient does have pedal edema does have elevated JVD is found to have a pulmonary hypertension moderate to severe. Patient is also noncompliant with diet and patient is any fever chills denied any cough d-dimer is negative Review of Systems REVIEW OF SYSTEMS: CONSTITUTIONAL: No fever, no malaise, no fatigue. HEENT: No recent visual problems or hearing problems. Denied any sore throat. CARDIOVASCULAR: No chest pain, no palpitations, no syncope. PULMONARY: no cough, no hemoptysis. GASTROINTESTINAL: No diarrhea, no nausea, no vomiting, no abdominal pain. NEUROLOGICAL: No headaches, no weakness, no numbness. HEMATOLOGICAL: Denies any bleeding or petechiae. GENITOURINARY: Denies any burning micturition, frequency, or urgency. MUSCULOSKELETAL/RHEUMATOLOGICAL: Denies any joint pain, swelling, or any muscle pain. ENDOCRINE: Denies any polyuria or polydipsia. The rest of the 14-point review of systems is negative. Past Medical History Past Medical History: Atrial Fibrillation, Coronary Artery Disease (CAD), Heart Failure, COPD, CVA/TIA, Hyperlipidemia, Hypertension, Myocardial Infarction ([place]), Sleep Apnea/CPAP/BIPAP Additional Past Medical History / Comment(s): blood transfusion/ANEMIA, STOPPED USING HIS CPAP MACHINE YEARS AGO, CONSTIPATION, SMALL SLIDING HIATAL HERNIA AND SMALL POLYP REMOVED.,HX MILD RENAL FAILURE. Last Myocardial Infarction Date:: HAD X2 LAST ONE 2002 History of Any Multi-Drug Resistant Organisms: None Reported Past Surgical History: Appendectomy, Coronary Bypass/CABG, Orthopedic Surgery Additional Past Surgical History / Comment(s): TRIPLE BYPASS, COLONOSCOPY/EGD, R hip sx Additional Past Anesthesia/Blood Transfusion Reaction / Comment(s): CLAUSTERPHOBIA Smoking Status: Former smoker - Past Family History Father Family Medical History: Cancer Additional Family Medical History / Comment(s): of pancreatic cancer Mother Family Medical History: Diabetes Mellitus Additional Family Medical History / Comment(s): AT AGE 90 WAS IN PRETTY GOOD HEALTH FROM OLD AGE Brother(s) Family Medical History: Diabetes Mellitus Additional Family Medical History / Comment(s): 2 BROTHERS HAVE DIABETES Medications and Allergies Home Medications Medication Instructions Recorded Confirmed Type Tiotropium 18 Mcg/Puff [Spiriva] 1 cap INHALATION RT-DAILY 07/13/13 09/27/18 History Albuterol Inhaler [Ventolin Hfa 1 - 2 puff INHALATION RT-Q6H PRN 10/08/14 09/27/18 History Inhaler] Budesonide-Formot 160-4.5 Mcg 2 puff INHALATION RT-BID 10/08/14 09/27/18 History [Symbicort 160-4.5 Mcg Inhaler] Folic Acid 1 mg PO DAILY 10/08/14 09/27/18 History Nitroglycerin Sl Tabs [Nitrostat] 0.4 mg SUBLINGUAL Q5M PRN 03/19/16 09/27/18 History Cyanocobalamin 100mcg 100 mcg PO DAILY 11/09/17 09/27/18 History Ferrous Sulfate [Iron] 325 mg PO TID 11/09/17 09/27/18 History Isosorbide Mononitrate [Isosorbide 30 mg PO BID 11/09/17 09/27/18 History Mononitrate ER] Simvastatin [Zocor] 20 mg PO HS 01/01/18 09/27/18 History Ascorbic Acid [Vitamin C] 250 mg PO DAILY 03/22/18 09/27/18 History Carvedilol [Coreg] 6.25 mg PO BID 03/22/18 09/27/18 History Furosemide [Lasix] 80 mg PO BID 03/22/18 09/27/18 History Ipratropium-Albuterol Nebulize 3 ml INHALATION RT-QID 03/22/18 09/27/18 History [Duoneb 0.5 mg-3 mg/3 ml Soln] Sennosides [Senna] 8.6 mg PO BID PRN 03/22/18 09/27/18 History Metolazone [Zaroxolyn] 2.5 mg PO Q48H 06/03/18 09/27/18 History Apixaban [Eliquis] 2.5 mg PO BID 09/27/18 09/27/18 History Allergies Allergy/AdvReac Type Severity Reaction Status Date / Time aspirin Allergy Swelling Verified 09/28/18 00:13 Physical Exam Vitals: Vital Signs Temp Pulse Pulse Resp BP BP BP 09/28/18 10:11 125/65 09/28/18 10:08 119/54 09/28/18 10:04 09/28/18 07:40 98.6 F 65 18 09/28/18 03:23 97.9 F 61 16 09/28/18 03:10 18 09/28/18 00:10 97.5 F L 62 18 09/28/18 00:00 18 09/27/18 22:39 98 F 52 L 20 133/64 09/27/18 21:08 22 09/27/18 21:07 65 22 126/62 09/27/18 20:34 97.9 F 66 18 149/68 BP BP Pulse Ox 09/28/18 10:11 09/28/18 10:08 09/28/18 10:04 110/57 09/28/18 07:40 136/74 100 09/28/18 03:23 131/62 99 09/28/18 03:10 09/28/18 00:10 136/70 98 09/28/18 00:00 09/27/18 22:39 99 09/27/18 21:08 09/27/18 21:07 98 09/27/18 20:34 95 Intake and Output 09/27/18 09/28/18 09/28/18 22:59 06:59 14:59 Intake Total 300 Output Total 1325 Balance -1025 Intake: Oral 300 Output: Urine 1325 Other: Voiding Method Urinal # Voids 4 Weight 95.254 kg PHYSICAL EXAMINATION: GENERAL: The patient is alert and oriented x3, not in any acute distress. Well developed, well nourished. HEENT: Pupils are round and equally reacting to light. EOMI. No scleral icterus. No conjunctival pallor. Normocephalic, atraumatic. No pharyngeal erythema. No thyromegaly. CARDIOVASCULAR: S1 and S2 present. No murmurs, rubs, or gallops. Does have elevated JVD PULMONARY: Chest is clear to auscultation, no wheezing or crackles. ABDOMEN: Soft, nontender, nondistended, normoactive bowel sounds. No palpable organomegaly. MUSCULOSKELETAL: No joint swelling or deformity. EXTREMITIES: No cyanosis, clubbing, or does have 2+ pitting pedal edema extending above the ankles NEUROLOGICAL: Gross neurological examination did not reveal any focal deficits. SKIN: No rashes. Results CBC & Chem 7: 09/28/18 05:16 09/28/18 05:16 Labs: Abnormal Lab Results - Last 24 Hours (Table) 09/27/18 09/27/18 09/28/18 Range/Units 21:03 21:03 05:16 RBC 4.23 L 4.09 L (4.30-5.90) m/uL Hgb 12.7 L (13.0-17.5) gm/dL Plt Count 133 L (150-450) k/uL BUN 23 H (9-20) mg/dL Creatinine 1.32 H (0.66-1.25) mg/dL Glucose 120 H (74-99) mg/dL 09/28/18 Range/Units 05:16 RBC (4.30-5.90) m/uL Hgb (13.0-17.5) gm/dL Plt Count (150-450) k/uL BUN 23 H (9-20) mg/dL Creatinine 1.27 H (0.66-1.25) mg/dL Glucose 101 H (74-99) mg/dL Thrombosis Risk Factor Assmnt - Choose All That Apply Each Risk Factor Represents 3 Points: Age 75 years or older Thrombosis Risk Factor Assessment Total Risk Factor Score: 3 Thrombosis Risk Factor Assessment Level: Moderate Risk Assessment and Plan Plan: Shortness of breath probably secondary to heart failure chronic diastolic dysfunction with contribution from some systolic dysfunction along with the right-sided heart failure from cor pulmonale and pulmonary hypertension, continue with IV Lasix dietary counseling will be provided ideation will be consulted I's and O's. Check BMP tomorrow morning. -COPD without any acute exacerbation patient will be resumed on the inhaled steroids and inhalational treatments. -Severe pulmonary hypertension -Acute renal failure with baseline creatinine around 1, probably secondary to prerenal azotemia from congestive heart failure -Hyperlipidemia -Coronary artery disease -Hypertension -Sleep apnea and uses CPAP machine at home -Atrial fibrillation presently rate controlled on anticoagulation with the Eliquis which will be continued
--- NOTE | 2018-09-28 12:57 | P.CRDCN ---
History of Present Illness History of present illness: This is a pleasant 77-year-old male past medical history significant for coronary artery disease status post bypass grafting with KNOWLES to LAD, KATY to RCA and free radial to OM performed in 1999, chronic persistent atrial fibrillation on long-term anticoagulation, ischemic cardiomyopathy, chronic systolic heart failure, hypertension, dyslipidemia and COPD. He follows in the office with Dr. Dunaway. We've been asked to see him in consultation secondary to shortness of breath. He states he was shopping at the store with his when it to the bathroom to urinate and upon exiting he came up he felt extremely lightheaded like he was going to pass out. He he also became acutely short of breath. He sat down in a chair that was return talked with him play of the store for about 10 minutes until he started to feel better. He was able to walk to his car his was waiting she drove him to the emergency department. He denies any associated chest discomfort, palpitations, nausea, vomiting or diaphoresis. He is seen and examined and mildly dyspneic. He states he is s omewhat noncompliant with his diuretic secondary to increased urination. EKG reveals right bundle branch block pattern with nonspecific ST abnormalities in lateral leads. Chest x-ray is negative for acute cardiopulmonary process. Laboratory data reviewed, WBC 7.4, hemoglobin 12.7, platelets 133, d-dimer 0.35, sodium 140, potassium 4.2, creatinine 1.27, cardiac enzymes negative 3, proBNP 1280. Current cardiac medications include Eliquis 2.5 mg twice a day, carvedilol 6.25 mg twice a day, Lasix 80 mg by mouth twice a day, Imdur 30 mg twice a day, Zaroxolyn 2.5 mg every other day and simvastatin 20 mg daily. Most recent echocardiogram change in urinary 2019 reveals impaired LV systolic function with ejection fraction 45-50%, apical septal LV wall motion hypokinesia, severely dilated left atrium, mild mitral regurgitation, mild tricuspid regurgitation and mild pulmonary hypertension with an RVSP of 34 mmHg. At the time of my exam: CONSTITUTIONAL: Denies fever. Denies chills. EYES: Denies blurred vision. Denies vision changes. Denies eye pain. EARS, NOSE, MOUTH & THROAT: Denies headache. Denies sore throat. Denies ear pain. CARDIOVASCULAR: Denies chest pain. Denies shortness of breath. Denies orthopnea. Denies PND. Denies palpitations. RESPIRATORY: Denies cough. GASTROINTESTINAL: Denies abdominal pain. Denies diarrhea. Denies constipation. Denies nausea. Denies vomiting. MUSCULOSKELETAL: Denies myalgias. INTEGUMENTARY: Denies pruitis. Denies rash. NEUROLOGIC: Denies numbness. Denies tingling. Denies weakness. PSYCHIATRIC: Denies anxiety. Denies depression. ENDOCRINE: Denies fatigue. Denies weight change. Denies polydipsia. Denies polyurina. GENITOURINARY: Denies burning, hematuria or urgency with micturation. HEMATOLOGIC: Denies history of anemia. Denies bleeding. Blood pressure 125/65 heart rate 65 afebrile maintaining oxygen saturation on nasal cannula GENERAL: This is a 77-year-old male in mild respiratory distress at the time of my examination. HEENT: Head is atraumatic, normocephalic. Pupils are equal, round. Sclerae anicteric. Conjunctivae are clear. Mucous membranes of the mouth are moist. Neck is supple. There is no jugular venous distention. No carotid bruit is heard. LUNGS: Bibasilar rales, no wheezes or rhonchi. No chest wall tenderness is noted on palpation or with deep breathing. HEART: Irregular rate and rhythm without murmurs, rubs or gallops. S1 and S2 heard. ABDOMEN: Soft, nontender. Bowel sounds are heard. No organomegaly noted. EXTREMITIES: 1+ bilateral lower extremity pitting edema and no calf tenderness noted. VASCULAR: Radial and dorsalis pedis pulses palpated, no evidence of clubbing. NEUROLOGIC: Patient is awake, alert and oriented x3. ASSESSMENT Acute on chronic systolic heart failure Pulmonary hypertension, severe RVSP 69 Tricuspid regurgitation, moderate Chronic ischemic cardiomyopathy History of coronary artery disease status post bypass grafting Chronic kidney disease, stage IIIa Hypertension Chronic atrial fibrillation on long-term anticoagulation Dyslipidemia COPD Noncompliance with diuretic therapy and diet PLAN An acute coronary event has been ruled out. Initiate on Lasix 60 mg IV twice a day. Repeat 2-D echocardiogram and Doppler study to assess cardiac structure and function. D-dimer requested and obtained. Check for orthostatic changes. Document intake and output every shift along with daily weight. Follow kidney function and electrolytes in the morning. We will continue to follow make recommendations accordingly. Thank you kindly for this consultation. Nurse Practitioner note has been reviewed, I agree with a documented findings and plan of care. Patient was seen and examined. Past Medical History Past Medical History: Atrial Fibrillation, Coronary Artery Disease (CAD), Heart Failure, COPD, CVA/TIA, Hyperlipidemia, Hypertension, Myocardial Infarction (CT), Sleep Apnea/CPAP/BIPAP Additional Past Medical History / Comment(s): blood transfusion/ANEMIA, STOPPED USING HIS CPAP MACHINE YEARS AGO, CONSTIPATION, SMALL SLIDING HIATAL HERNIA AND SMALL POLYP REMOVED.,HX MILD RENAL FAILURE. Last Myocardial Infarction Date:: HAD X2 LAST ONE 2002 History of Any Multi-Drug Resistant Organisms: None Reported Past Surgical History: Appendectomy, Coronary Bypass/CABG, Orthopedic Surgery Additional Past Surgical History / Comment(s): TRIPLE BYPASS, COLONOSCOPY/EGD, R hip sx Additional Past Anesthesia/Blood Transfusion Reaction / Comment(s): CLAUSTERPHOBIA Smoking Status: Former smoker - Past Family History Father Family Medical History: Cancer Additional Family Medical History / Comment(s): of pancreatic cancer Mother Family Medical History: Diabetes Mellitus Additional Family Medical History / Comment(s): AT AGE 90 WAS IN PRETTY GOOD HEALTH FROM OLD AGE Brother(s) Family Medical History: Diabetes Mellitus Additional Family Medical History / Comment(s): 2 BROTHERS HAVE DIABETES Medications and Allergies Home Medications Medication Instructions Recorded Confirmed Type Tiotropium 18 Mcg/Puff [Spiriva] 1 cap INHALATION RT-DAILY 07/13/13 09/27/18 History Albuterol Inhaler [Ventolin Hfa 1 - 2 puff INHALATION RT-Q6H PRN 10/08/14 09/27/18 History Inhaler] Budesonide-Formot 160-4.5 Mcg 2 puff INHALATION RT-BID 10/08/14 09/27/18 History [Symbicort 160-4.5 Mcg Inhaler] Folic Acid 1 mg PO DAILY 10/08/14 09/27/18 History Nitroglycerin Sl Tabs [Nitrostat] 0.4 mg SUBLINGUAL Q5M PRN 03/19/16 09/27/18 History Cyanocobalamin 100mcg 100 mcg PO DAILY 11/09/17 09/27/18 History Ferrous Sulfate [Iron] 325 mg PO TID 11/09/17 09/27/18 History Isosorbide Mononitrate [Isosorbide 30 mg PO BID 11/09/17 09/27/18 History Mononitrate ER] Simvastatin [Zocor] 20 mg PO HS 01/01/18 09/27/18 History Ascorbic Acid [Vitamin C] 250 mg PO DAILY 03/22/18 09/27/18 History Carvedilol [Coreg] 6.25 mg PO BID 03/22/18 09/27/18 History Furosemide [Lasix] 80 mg PO BID 03/22/18 09/27/18 History Ipratropium-Albuterol Nebulize 3 ml INHALATION RT-QID 03/22/18 09/27/18 History [Duoneb 0.5 mg-3 mg/3 ml Soln] Sennosides [Senna] 8.6 mg PO BID PRN 03/22/18 09/27/18 History Metolazone [Zaroxolyn] 2.5 mg PO Q48H 06/03/18 09/27/18 History Apixaban [Eliquis] 2.5 mg PO BID 09/27/18 09/27/18 History Allergies Allergy/AdvReac Type Severity Reaction Status Date / Time aspirin Allergy Swelling Verified 09/28/18 00:13 Physical Exam Vitals: Vital Signs Temp Pulse Pulse Resp BP BP Pulse Ox 09/28/18 07:40 98.6 F 65 18 136/74 100 09/28/18 03:23 97.9 F 61 16 131/62 99 09/28/18 03:10 18 09/28/18 00:10 97.5 F L 62 18 136/70 98 09/28/18 00:00 18 09/27/18 22:39 98 F 52 L 20 133/64 99 09/27/18 21:08 22 09/27/18 21:07 65 22 126/62 98 09/27/18 20:34 97.9 F 66 18 149/68 95 Intake and Output 09/27/18 09/28/18 09/28/18 22:59 06:59 14:59 Other: Weight 95.254 kg Results 09/28/18 05:16 09/28/18 05:16 Cardiac Enzymes 09/27/18 09/28/18 09/28/18 Range/Units 21:03 01:08 05:16 Troponin I 0.018 0.023 0.026 (0.000-0.034) ng/mL CBC 09/27/18 09/28/18 Range/Units 21:03 05:16 WBC 8.5 7.4 (3.8-10.6) k/uL RBC 4.23 L 4.09 L (4.30-5.90) m/uL Hgb 13.2 12.7 L (13.0-17.5) gm/dL Hct 40.2 39.1 (39.0-53.0) % Plt Count 153 133 L (150-450) k/uL Comprehensive Metabolic Panel 09/27/18 09/28/18 Range/Units 21:03 05:16 Sodium 141 140 (137-145) mmol/L Potassium 4.0 4.2 (3.5-5.1) mmol/L Chloride 103 104 (98-107) mmol/L Carbon Dioxide 29 30 (22-30) mmol/L BUN 23 H 23 H (9-20) mg/dL Creatinine 1.32 H 1.27 H (0.66-1.25) mg/dL Glucose 120 H 101 H (74-99) mg/dL Calcium 9.1 8.6 (8.4-10.2) mg/dL Current Medications Generic Name Dose Route Start Last Admin Trade Name Kevinq PRN Reason Stop Dose Admin Naloxone HCl 0.2 mg 09/27/18 23:08 Narcan IV Q2M PRN Opioid Reversal Intake and Output 09/27/18 09/28/18 09/28/18 22:59 06:59 14:59 Other: Weight 95.254 kg 09/28/18 05:16 09/28/18 05:16
[2018-09-28 14:21] VITALS: BMI 28.5
[2018-09-28] MEDS: SYMBICORT 160-4.5 MCG INHALER INHALATION SCH (18:35)
[2018-09-28] MEDS: FUROSEMIDE 10 MG/ML 10 ML VIAL IV SCH (19:50)
[2018-09-28] MEDS ORDERED: ATORVASTATIN 10 MG TAB PO SCH (21:00)
[2018-09-29 06:11] LABS: Calcium 9.3 mg/dL (8.4-10.2); Potassium 3.2 mmol/L (3.5-5.1)
[2018-09-29] MEDS ORDERED: POTASSIUM CHLORIDE ER 20 MEQ TAB.ER PO STA (07:21)
[2018-09-29] MEDS: IPRATROPIUM 0.5 MG/2.5 ML NEBU INHALATION SCH ×2 (07:37→11:06)
[2018-09-29] MEDS: SYMBICORT 160-4.5 MCG INHALER INHALATION SCH (07:37)
[2018-09-29] MEDS: APIXABAN 2.5 MG TABLET PO SCH (08:20)
[2018-09-29] MEDS: CARVEDILOL 6.25 MG TAB PO SCH (08:20)
[2018-09-29] MEDS: ISOSORBIDE MONONITRATE ER 30 MG TAB.ER.24H PO SCH (08:20)
[2018-09-29] MEDS: FUROSEMIDE 10 MG/ML 10 ML VIAL IV SCH (08:20)
[2018-09-29] MEDS ORDERED: CYANOCOBALAMIN 500 MCG TAB PO SCH (09:00)
[2018-09-29] MEDS ORDERED: SPIRONOLACTONE 25 MG TAB PO SCH (10:30)
[2018-09-29 11:58] VITALS: BP 103/62; PULSE 66; TEMP 98.3
[2018-09-29 12:25] VITALS: RESP 18
--- NOTE | 2018-09-29 13:31 | P.DS ---
Providers Date of admission: 09/27/18 23:08 Attending physician: Anne Marie Powers Consults: 09/27/18 23:09 Consult Physician Routine Consulting Provider: Ravi Dunaway Consult Reason/Comments: acute dyspnea on exertion, Do you want consulting provider notified?: Yes Primary care physician: [facility] Course: 77-year-old pleasant male came in with compensative shortness of breath exer tional. Denied any chest pain. Troponins are negative EKG did not show any significant abnormality patient does have orthopnea proximal nocturnal dyspnea and patient is supposed to take Lasix at home. Taking Lasix Prevacid patient had normal ejection fraction the past present echocardiac demonstrated ejection fraction of around 45-50% BNP is not highly elevated. Although patient is obese. BNP is around 400. Patient does have pedal edema does have elevated JVD is found to have a pulmonary hypertension moderate to severe. Patient is also noncompliant with diet and patient is any fever chills denied any cough d-dimer is negative. 09/21/2018 Patient's patient's symptoms of shortness of breath improved significantly after Lasix patient will resume the Lasix at counseling was provided patient will be discharged today. PHYSICAL EXAMINATION: GENERAL: The patient is alert and oriented x3, not in any acute distress. Well developed, well nourished. HEENT: Pupils are round and equally reacting to light. EOMI. No scleral icterus. No conjunctival pallor. Normocephalic, atraumatic. No pharyngeal erythema. No thyromegaly. CARDIOVASCULAR: S1 and S2 present. No murmurs, rubs, or gallops. Improved JVD PULMONARY: Chest is clear to auscultation, no wheezing or crackles. ABDOMEN: Soft, nontender, nondistended, normoactive bowel sounds. No palpable organomegaly. MUSCULOSKELETAL: No joint swelling or deformity. EXTREMITIES: No cyanosis, clubbing, improved pedal edema NEUROLOGICAL: Gross neurological examination did not reveal any focal deficits. SKIN: No rashes. Assessment and Plan Plan: Shortness of breath probably secondary to heart failure chronic diastolic dysfunction with contribution from some systolic dysfunction along with the right-sided heart failure from cor pulmonale and pulmonary hypertension, -COPD without any acute exacerbation patient will be resumed on the inhaled steroids and inhalational treatments. -Severe pulmonary hypertension -Acute renal failure with baseline creatinine around 1, probably secondary to prerenal azotemia from congestive heart failure -Hyperlipidemia -Coronary artery disease -Hypertension -Sleep apnea and uses CPAP machine at home -Atrial fibrillation presently rate controlled on anticoagulation with the Eliquis which will be continued Patient Condition at Discharge: Good Plan - Discharge Summary New Discharge Prescriptions: New Spironolactone [Aldactone] 12.5 mg PO DAILY #30 tab Continue Tiotropium 18 Mcg/Puff [Spiriva] 1 cap INHALATION RT-DAILY Folic Acid 1 mg PO DAILY Albuterol Inhaler [Ventolin Hfa Inhaler] 1 - 2 puff INHALATION RT-Q6H PRN PRN Reason: Shortness Of Breath Budesonide-Formot 160-4.5 Mcg [Symbicort 160-4.5 Mcg Inhaler] 2 puff INHALATION RT-BID Nitroglycerin Sl Tabs [Nitrostat] 0.4 mg SUBLINGUAL Q5M PRN PRN Reason: Chest Pain Ferrous Sulfate [Iron] 325 mg PO TID Isosorbide Mononitrate [Isosorbide Mononitrate ER] 30 mg PO BID Cyanocobalamin 100mcg 100 mcg PO DAILY Simvastatin [Zocor] 20 mg PO HS Ascorbic Acid [Vitamin C] 250 mg PO DAILY Sennosides [Senna] 8.6 mg PO BID PRN PRN Reason: Constipation Ipratropium-Albuterol Nebulize [Duoneb 0.5 mg-3 mg/3 ml Soln] 3 ml INHALATION RT-QID Furosemide [Lasix] 80 mg PO BID Carvedilol [Coreg] 6.25 mg PO BID Metolazone [Zaroxolyn] 2.5 mg PO Q48H Apixaban [Eliquis] 2.5 mg PO BID Discharge Medication List Tiotropium 18 Mcg/Puff [Spiriva] 1 cap INHALATION RT-DAILY 07/13/13 [History] Albuterol Inhaler [Ventolin Hfa Inhaler] 1 - 2 puff INHALATION RT-Q6H PRN 10/08/14 [History] Budesonide-Formot 160-4.5 Mcg [Symbicort 160-4.5 Mcg Inhaler] 2 puff INHALATION RT-BID 10/08/14 [History] Folic Acid 1 mg PO DAILY 10/08/14 [History] Nitroglycerin Sl Tabs [Nitrostat] 0.4 mg SUBLINGUAL Q5M PRN 03/19/16 [History] Cyanocobalamin 100mcg 100 mcg PO DAILY 11/09/17 [History] Ferrous Sulfate [Iron] 325 mg PO TID 11/09/17 [History] Isosorbide Mononitrate [Isosorbide Mononitrate ER] 30 mg PO BID 11/09/17 [History] Simvastatin [Zocor] 20 mg PO HS 01/01/18 [History] Ascorbic Acid [Vitamin C] 250 mg PO DAILY 03/22/18 [History] Carvedilol [Coreg] 6.25 mg PO BID 03/22/18 [History] Furosemide [Lasix] 80 mg PO BID 03/22/18 [History] Ipratropium-Albuterol Nebulize [Duoneb 0.5 mg-3 mg/3 ml Soln] 3 ml INHALATION RT-QID 03/22/18 [History] Sennosides [Senna] 8.6 mg PO BID PRN 03/22/18 [History] Metolazone [Zaroxolyn] 2.5 mg PO Q48H 06/03/18 [History] Apixaban [Eliquis] 2.5 mg PO BID 09/27/18 [History] Spironolactone [Aldactone] 12.5 mg PO DAILY #30 tab 09/29/18 [Rx] Follow up Appointment(s)/Referral(s): Ravi Dunaway MD [STAFF PHYSICIAN] - 10/10/18 2:00 pm [facility],Clinic [Primary Care Provider] - 3 Days Ambulatory/Diagnostic Orders: Basic Metabolic Panel [LAB.AMB] Time Frame: 3 Days, Location: None Selected Patient Instructions/Handouts: Heart Failure (GEN) Discharge Disposition: HOME SELF-CARE
--- NOTE | 2018-09-29 13:43 | P.PN ---
Subjective This is a pleasant 77-year-old male past medical history significant for coronary artery disease status post bypass grafting with KNOWLES to LAD, KATY to RCA and free radial to OM performed in 1999, chronic persistent atrial fibrillation on long-term anticoagulation, ischemic cardiomyopathy, chronic systolic heart failure, hypertension, dyslipidemia and COPD. He follows in the office with Dr. Dunaway. We've been asked to see him in consultation secondary to shortness of breath. He states he was shopping at the store with his when it to the bathroom to urinate and upon exiting he came up he felt extremely lightheaded like he was going to pass out. He he also became acutely short of breath. He sat down in a chair that was return talked with him play of the store for about 10 minutes until he started to feel better. He was able to walk to his car his was waiting she drove him to the emergency department. He denies any associated chest discomfort, palpitations, nausea, vomiting or diaphoresis. He is seen and examined and mildly dyspneic. He states he is somewhat noncompliant with his diuretic secondary to increased urination. 09/29/2018 Pt is seen and examined sitting up in bed in no acute distress. He states he is feeling better from a breathing aspect but not completely back to baseline. He is not requiring oxygen. He has been using the urinal and hasn't been up out of bed much since admission. Maintaining a negative fluid balance. Blood pressure 103/62 heart rate 66. Laboratory data reviewed, sodium 139, potassium 3.2, creatinine 1.36. GENERAL: This is a 77-year-old male in mild respiratory distress at the time of my examination. HEENT: Head is atraumatic, normocephalic. Pupils are equal, round. Sclerae anicteric. Conjunctivae are clear. Mucous membranes of the mouth are moist. Neck is supple. There is no jugular venous distention. No carotid bruit is heard. LUNGS: Bibasilar rales, no wheezes or rhonchi. No chest wall tenderness is noted on palpation or with deep breathing. HEART: Irregular rate and rhythm without murmurs, rubs or gallops. S1 and S2 heard. EXTREMITIES: 1+ bilateral lower extremity pitting edema and no calf tenderness noted. ASSESSMENT Acute on chronic systolic heart failure Pulmonary hypertension, severe RVSP 69 Tricuspid regurgitation, moderate Chronic ischemic cardiomyopathy History of coronary artery disease status post bypass grafting Chronic kidney disease, stage IIIa Hypertension Chronic atrial fibrillation on long-term anticoagulation Dyslipidemia COPD Noncompliance with diuretic therapy and diet PLAN Replace potassium. Initiate on small dose of aldactone. Repeat renal function in the morning. Nurse Practitioner note has been reviewed, I agree with a documented findings and plan of care. Patient was seen and examined. Objective - Vital Signs Vital signs: Vital Signs Temp 98.3 F 09/29/18 11:56 Pulse 66 09/29/18 11:56 Resp 18 09/29/18 12:00 BP 103/62 09/29/18 11:56 Pulse Ox 91 L 09/29/18 11:56 Intake & Output 09/28/18 09/29/18 09/29/18 18:59 06:59 18:59 Intake Total 1000 420 Output Total 2925 1925 825 Balance -1925 -1925 -405 Weight 95.254 kg Intake: Oral 1000 420 Output: Urine 2925 1925 825 Other: Voiding Method Urinal Urinal Urinal # Voids 1 1 - Labs CBC & Chem 7: 09/28/18 05:16 09/29/18 05:42 Labs: Abnormal Lab Results - Last 24 Hours (Table) 09/29/18 Range/Units 05:42 Potassium 3.2 L (3.5-5.1) mmol/L Chloride 96 L (98-107) mmol/L Carbon Dioxide 35 H (22-30) mmol/L BUN 28 H (9-20) mg/dL Creatinine 1.36 H (0.66-1.25) mg/dL Glucose 101 H (74-99) mg/dL
[2018-09-30] MEDS ORDERED: SPIRONOLACTONE 25 MG TAB PO SCH (09:00)
== END 2018-09-29 01:17 | disposition home or self-care (01) ==
LOC: EC 20:18 → 1SOBS 23:08
PROVIDERS: ADMIT Internal Medicine; ATTEND Internal Medicine
DX: R06.02 Shortness of breath (principal); I50.43 Acute on chronic combined systolic (congestive) and diastolic (congestive) heart failure; I27.29 Other secondary pulmonary hypertension; N17.9 Acute kidney failure, unspecified; I50.810 Right heart failure, unspecified; I27.81 Cor pulmonale (chronic); I13.0 Hypertensive heart and chronic kidney disease with heart failure and stage 1 through stage 4 chronic kidney disease, or unspecified chronic kidney disease; N18.3 Chronic kidney disease, stage 3 (moderate); J44.9 Chronic obstructive pulmonary disease, unspecified; I45.10 Unspecified right bundle-branch block; I48.1 Persistent atrial fibrillation; E78.5 Hyperlipidemia, unspecified; I25.5 Ischemic cardiomyopathy; I25.10 Atherosclerotic heart disease of native coronary artery without angina pectoris; G47.30 Sleep apnea, unspecified; Z99.89 Dependence on other enabling machines and devices; Z91.11 Patient's noncompliance with dietary regimen; Z91.14 Patient's other noncompliance with medication regimen; I48.2 Chronic atrial fibrillation; I08.3 Combined rheumatic disorders of mitral, aortic and tricuspid valves; F40.240 Claustrophobia; K59.00 Constipation, unspecified; K44.9 Diaphragmatic hernia without obstruction or gangrene; D64.9 Anemia, unspecified; E66.9 Obesity, unspecified; Z68.28 Body mass index [BMI] 28.0-28.9, adult; Z79.51 Long term (current) use of inhaled steroids; Z79.01 Long term (current) use of anticoagulants; Z79.899 Other long term (current) drug therapy; Z86.73 Personal history of transient ischemic attack (TIA), and cerebral infarction without residual deficits; I25.2 Old myocardial infarction; Z95.1 Presence of aortocoronary bypass graft; Z90.49 Acquired absence of other specified parts of digestive tract; Z87.891 Personal history of nicotine dependence; Z83.3 Family history of diabetes mellitus; Z80.0 Family history of malignant neoplasm of digestive organs
CPT/HCPCS: 96374; 96376 ×2; 99285; 36415; 94640 ×3; 94760; 93005; 93306; 85379; 83880; 80048 ×3; 84484 ×2; 85025 ×2; 71046; G0378 ×3; J1940 ×2; Q9950

== ENCOUNTER 2018-11-08 12:36 | Emergency (ER) | payer OTHER, MEDICARE ==
[2018-11-08 13:09] VITALS: BP 89/48; PULSE 51; RESP 16; TEMP 98.3
[2018-11-08] MEDS ORDERED: Acetaminophen-Codeine 300-30mg TAB PO STA (13:30)
[2018-11-08] MEDS ORDERED: SODIUM CHLORIDE 0.9% 1,000 ML IV STA (13:50)
--- NOTE | 2018-11-08 14:07 | XR ---
EXAMINATION TYPE: XR shoulder complete RT DATE OF EXAM: 11/08/2018 CLINICAL HISTORY: Pain. TECHNIQUE: Three views of the right shoulder are obtained. COMPARISON: PET CT May 21, 2018. FINDINGS: Demineralization is present. There is no acute fracture/dislocation evident in the right sh oulder. Moderate to severe narrowing with mild to moderate spurring acromioclavicular joint. Glenohum eral joint is maintained. The visualized ribs are intact and unremarkable. Surgical shiva in the [facility] upper lung are redemonstrated. IMPRESSION: As above.
--- NOTE | 2018-11-08 14:08 | XR ---
EXAMINATION TYPE: XR cervical spine comp DATE OF EXAM: 11/08/2018 TECHNIQUE: Frontal, lateral, oblique, and open mouth view of the cervical spine are obtained. HISTORY: Pain COMPARISON: PET/CT May 21, 2018. FINDINGS: The cervical spine is visualized in its entirety from C1 thru the top of T1 level,. There is exaggerated cervical curvature without evidence of acute fracture or dislocation. The pre-vertebr al soft tissue appears within normal limits. The C1-C2 articulation is within normal limits on the o pen mouth view. Vertebral body heights and disc space heights are fairly well maintained . The obliqu e images are within normal limits. Moderate to severe vascular calcification bilateral carotid bulb l evel is redemonstrated. Partial visualization of sternal wires and mediastinal clips. IMPRESSION: As above.
--- NOTE | 2018-11-08 14:58 | ED ---
General Adult HPI - General Chief complaint: Extremity Injury, Upper Stated complaint: right shoulder / neck pain Time Seen by Provider: 11/08/18 13:16 Source: patient Mode of arrival: ambulatory Limitations: no limitations - History of Present Illness Initial comments: Patient is 78-year-old male presents emergency Department with a chief complaint right shoulder pain. Patient reports the symptoms gradually started on 4 days ago and has since increased in severity. Patient denies trauma to the shoulder. Patient reports pain with abduction of her shoulder above 90. Patient denies any numbness or tingling. Patient reports the pain is an 8 and sharp in nature. Patient reports the pain exacerbated with palpation as well. Patient reports resting the arm an adducted position alleviates the pain. Patient reports taking Tylenol minimal improvement. Patient denies chest pain, shortness of breath, nausea vomiting, blurry vision, dizziness or lightheadedness. Patient reports going to the chiropractor 2 days ago which temporarily improved his symptoms but has since increased in severity. - Related Data Home Medications Medication Instructions Recorded Confirmed Tiotropium 18 Mcg/Puff [Spiriva] 1 cap INHALATION RT-DAILY 07/13/13 11/08/18 Albuterol Inhaler [Ventolin Hfa 1 - 2 puff INHALATION RT-Q6H PRN 10/08/14 11/08/18 Inhaler] Budesonide-Formot 160-4.5 Mcg 2 puff INHALATION RT-BID 10/08/14 11/08/18 [Symbicort 160-4.5 Mcg Inhaler] Folic Acid 1 mg PO DAILY 10/08/14 11/08/18 Nitroglycerin Sl Tabs [Nitrostat] 0.4 mg SUBLINGUAL Q5M PRN 03/19/16 11/08/18 Ferrous Sulfate [Iron] 325 mg PO TID 11/09/17 11/08/18 Isosorbide Mononitrate [Isosorbide 30 mg PO BID 11/09/17 11/08/18 Mononitrate ER] Simvastatin [Zocor] 20 mg PO HS 01/01/18 11/08/18 Ascorbic Acid [Vitamin C] 250 mg PO DAILY 03/22/18 11/08/18 Carvedilol [Coreg] 6.25 mg PO BID 03/22/18 11/08/18 Furosemide [Lasix] 80 mg PO BID 03/22/18 11/08/18 Ipratropium-Albuterol Nebulize 3 ml INHALATION RT-QID 03/22/18 11/08/18 [Duoneb 0.5 mg-3 mg/3 ml Soln] Sennosides [Senna] 8.6 mg PO BID PRN 03/22/18 11/08/18 Metolazone [Zaroxolyn] 2.5 mg PO Q48H 06/03/18 11/08/18 Apixaban [Eliquis] 2.5 mg PO BID 09/27/18 11/08/18 Cyanocobalamin (Vitamin B-12) 1,000 mcg PO DAILY 11/08/18 11/08/18 [Vitamin B-12] Previous Rx's Medication Instructions Recorded Potassium Chloride ER [K-Dur 20] 20 meq PO DAILY #30 tab 09/29/18 Spironolactone [Aldactone] 12.5 mg PO DAILY #30 tab 09/29/18 Allergies Allergy/AdvReac Type Severity Reaction Status Date / Time aspirin Allergy Swelling Verified 11/08/18 13:23 Review of Systems ROS Statement: Those systems with pertinent positive or pertinent negative responses have been documented in the HPI. ROS Other: All systems not noted in ROS Statement are negative. Past Medical History Past Medical History: Atrial Fibrillation, Coronary Artery Disease (CAD), Heart Failure, COPD, CVA/TIA, Hyperlipidemia, Hypertension, Myocardial Infarction ([place]), Sleep Apnea/CPAP/BIPAP Additional Past Medical History / Comment(s): blood transfusion/ANEMIA, STOPPED USING HIS CPAP MACHINE YEARS AGO, CONSTIPATION, SMALL SLIDING HIATAL HERNIA AND SMALL POLYP REMOVED.,HX MILD RENAL FAILURE. Last Myocardial Infarction Date:: HAD X2 LAST ONE 2002 History of Any Multi-Drug Resistant Organisms: None Reported Past Surgical History: Appendectomy, Coronary Bypass/CABG, Orthopedic Surgery Additional Past Surgical History / Comment(s): TRIPLE BYPASS, COLONOSCOPY/EGD, R hip sx Additional Past Anesthesia/Blood Transfusion Reaction / Comment(s): CLAUSTERPHOBIA Past Psychological History: No Psychological Hx Reported Smoking Status: Former smoker Past Alcohol Use History: None Reported Past Drug Use History: None Reported - Past Family History Father Family Medical History: Cancer Additional Family Medical History / Comment(s): of pancreatic cancer Mother Family Medical History: Diabetes Mellitus Additional Family Medical History / Comment(s): AT AGE 90 WAS IN PRETTY GOOD HEALTH FROM OLD AGE Brother(s) Family Medical History: Diabetes Mellitus Additional Family Medical History / Comment(s): 2 BROTHERS HAVE DIABETES General Exam Limitations: no limitations General appearance: alert, in no apparent distress Head exam: Present: atraumatic, normocephalic, normal inspection Eye exam: Present: normal appearance, PERRL, EOMI Pupils: Present: normal accommodation ENT exam: Present: normal exam, mucous membranes moist, normal external ear exam Neck exam: Present: normal inspection, tenderness (Tenderness along the right trapezius with palpation. No cervical spine tenderness.), full ROM. Absent: lymphadenopathy Respiratory exam: Present: normal lung sounds bilaterally Cardiovascular Exam: Present: regular rate, normal rhythm, normal heart sounds GI/Abdominal exam: Present: soft, normal bowel sounds. Absent: tenderness, guarding Extremities exam: Present: normal inspection, tenderness (Tenderness along the lateral aspect of her right shoulder), normal capillary refill, other (+2 ulnar radial pulses bilaterally.). Absent: full ROM (A range of motion with abduction above 90 and right shoulder.) Back exam: Present: normal inspection, full ROM. Absent: tenderness, CVA tenderness (R), CVA tenderness (L) Neurological exam: Present: alert, oriented X3 Psychiatric exam: Present: normal affect, normal mood Skin exam: Present: warm, intact, normal color Course Vital Signs 11/08/18 13:03 Temperature 98.3 F Pulse Rate 51 L Respiratory 16 Rate Blood Pressure 89/48 O2 Sat by Pulse 95 Oximetry Medical Decision Making - Medical Decision Making Patient is 70-year-old male presents emergency Department with chief complaint right shoulder pain. X-ray shoulder is negative for acute fracture or dislocations. X-ray of cervical spine is unremarkable. based on physical examination patient appears to have tenderness along the right trapezius and right shoulder. I suspect the patient to have suffered right shoulder strain. Patient advised to alternate between Tylenol and ibuprofen for pain control. Patient given a Tylenol 3 starter pack. Patient also given a Tylenol 3 dose here patient reports he feels better on discharge. Repeat vitals reveal a blood pressure within normal limits. Patient was to follow with orthopedics if symptoms do not improve. Strict return parameters were thoroughly discussed the patient is understanding and agreeable. Case discussed with physician. Disposition Clinical Impression: Shoulder pain, right Disposition: HOME SELF-CARE Condition: Stable Instructions (If sedation given, give patient instructions): Shoulder Sprain (ED) Additional Instructions: Please follow with orthopedics. Please see prescribe medication as directed. Do not drive or operate heavy machinery when taking medication. Please return to emergency department if symptoms worsen. Is patient prescribed a controlled substance at d/c from ED?: No Referrals: [facility],Clinic [Primary Care Provider] - 1-2 days Gabriel Oakes MD [STAFF PHYSICIAN] - 1-2 days Time of Disposition: 14:55
[2018-11-08] MEDS ORDERED: ACET/COD 300 MG/30 MG STARTER PACK 6 TAB BTL PO STA (15:18)
== END 2018-11-08 15:40 | disposition home or self-care (01) ==
LOC: EC 12:36
DX: M25.511 Pain in right shoulder (principal); I48.91 Unspecified atrial fibrillation; I25.10 Atherosclerotic heart disease of native coronary artery without angina pectoris; I11.0 Hypertensive heart disease with heart failure; I50.9 Heart failure, unspecified; I25.2 Old myocardial infarction; E78.5 Hyperlipidemia, unspecified; J44.9 Chronic obstructive pulmonary disease, unspecified; Z79.51 Long term (current) use of inhaled steroids; Z79.02 Long term (current) use of antithrombotics/antiplatelets; Z79.01 Long term (current) use of anticoagulants; Z79.899 Other long term (current) drug therapy; Z88.6 Allergy status to analgesic agent; Z87.891 Personal history of nicotine dependence; Z95.1 Presence of aortocoronary bypass graft; Z86.73 Personal history of transient ischemic attack (TIA), and cerebral infarction without residual deficits
CPT/HCPCS: 72050; 99283

== ENCOUNTER 2018-11-18 17:45 | Emergency (ER) | payer OTHER, MEDICARE ==
[2018-11-18 17:52] VITALS: BP 147/78; PULSE 69; RESP 18; TEMP 97.4
[2018-11-18] MEDS ORDERED: methylPREDNISolone SOD SUCCI 125 MG/2 ML VIAL IM ONE (18:26)
[2018-11-18] MEDS ORDERED: ACET/COD 300 MG/30 MG STARTER PACK 6 TAB BTL PO STA (18:26)
--- NOTE | 2018-11-18 18:29 | ED ---
Upper Extremity HPI - General Source: patient Mode of arrival: ambulatory Limitations: no limitations <Jenise Cody - Last Filed: 11/18/18 18:58> <Svetlana Andrade - Last Filed: 11/21/18 23:55> - General Chief Complaint: Extremity Injury, Upper Stated Complaint: shoulder pain Time Seen by Provider: 11/18/18 18:05 - History of Present Illness Initial Comments: 78-year-old male patient presents to the emergency department today for evaluation of right shoulder pain. Patient states he has had this pain for a little over a week. Denies any known injury. States he woke from sleep and the pain was present. Patient states he has increased pain with movement of the right shoulder. States the pain worsens at approximately 90 abduction. Patient states the pain improves any rest and an abducted position. Denies any numbness or tingling in the arm or hand. States the pain travels up into his neck and down to about his elbow. Patient states he has had similar symptoms in the past and had receive a joint injection. Patient denies fever or chills. Denies chest pain or shortness of breath. Patient denies any headache, back pain, dizziness, weakness, abdominal pain, nausea, vomiting, or difficulties with bowel movements or urination. (Jenise Cody) - Related Data Home Medications Medication Instructions Recorded Confirmed Tiotropium 18 Mcg/Puff [Spiriva] 1 cap INHALATION RT-DAILY 07/13/13 11/08/18 Albuterol Inhaler [Ventolin Hfa 1 - 2 puff INHALATION RT-Q6H PRN 10/08/14 11/08/18 Inhaler] Budesonide-Formot 160-4.5 Mcg 2 puff INHALATION RT-BID 10/08/14 11/08/18 [Symbicort 160-4.5 Mcg Inhaler] Folic Acid 1 mg PO DAILY 10/08/14 11/08/18 Nitroglycerin Sl Tabs [Nitrostat] 0.4 mg SUBLINGUAL Q5M PRN 03/19/16 11/08/18 Ferrous Sulfate [Iron] 325 mg PO TID 11/09/17 11/08/18 Isosorbide Mononitrate [Isosorbide 30 mg PO BID 11/09/17 11/08/18 Mononitrate ER] Simvastatin [Zocor] 20 mg PO HS 01/01/18 11/08/18 Ascorbic Acid [Vitamin C] 250 mg PO DAILY 03/22/18 11/08/18 Carvedilol [Coreg] 6.25 mg PO BID 03/22/18 11/08/18 Furosemide [Lasix] 80 mg PO BID 03/22/18 11/08/18 Ipratropium-Albuterol Nebulize 3 ml INHALATION RT-QID 03/22/18 11/08/18 [Duoneb 0.5 mg-3 mg/3 ml Soln] Sennosides [Senna] 8.6 mg PO BID PRN 03/22/18 11/08/18 Metolazone [Zaroxolyn] 2.5 mg PO Q48H 06/03/18 11/08/18 Apixaban [Eliquis] 2.5 mg PO BID 09/27/18 11/08/18 Cyanocobalamin (Vitamin B-12) 1,000 mcg PO DAILY 11/08/18 11/08/18 [Vitamin B-12] Previous Rx's Medication Instructions Recorded Potassium Chloride ER [K-Dur 20] 20 meq PO DAILY #30 tab 09/29/18 Spironolactone [Aldactone] 12.5 mg PO DAILY #30 tab 09/29/18 Acetaminophen-Codeine 300-30mg 1 tab PO Q6H PRN #12 tablet 11/18/18 [Tylenol #3] predniSONE 50 mg PO DAILY #5 tablet 11/18/18 Allergies Allergy/AdvReac Type Severity Reaction Status Date / Time No Known Allergies Allergy Verified 11/18/18 18:59 Review of Systems ROS Other: All systems not noted in ROS Statement are negative. <Jenise Cody - Last Filed: 11/18/18 18:58> ROS Other: All systems not noted in ROS Statement are negative. <Svetlana Andrade - Last Filed: 11/21/18 23:55> ROS Statement: Those systems with pertinent positive or pertinent negative responses have been documented in the HPI. Past Medical History Past Medical History: Atrial Fibrillation, Coronary Artery Disease (CAD), Heart Failure, COPD, CVA/TIA, Hyperlipidemia, Hypertension, Myocardial Infarction ([place]), Sleep Apnea/CPAP/BIPAP Additional Past Medical History / Comment(s): blood transfusion/ANEMIA, STOPPED USING HIS CPAP MACHINE YEARS AGO, CONSTIPATION, SMALL SLIDING HIATAL HERNIA AND SMALL POLYP REMOVED.,HX MILD RENAL FAILURE. Last Myocardial Infarction Date:: HAD X2 LAST ONE 2002 History of Any Multi-Drug Resistant Organisms: None Reported Past Surgical History: Appendectomy, Coronary Bypass/CABG, Orthopedic Surgery Additional Past Surgical History / Comment(s): TRIPLE BYPASS, COLONOSCOPY/EGD, R hip sx Additional Past Anesthesia/Blood Transfusion Reaction / Comment(s): CLAUSTERPHOBIA Past Psychological History: No Psychological Hx Reported Smoking Status: Former smoker Past Alcohol Use History: None Reported Past Drug Use History: None Reported - Past Family History Father Family Medical History: Cancer Additional Family Medical History / Comment(s): of pancreatic cancer Mother Family Medical History: Diabetes Mellitus Additional Family Medical History / Comment(s): AT AGE 90 WAS IN PRETTY GOOD HEALTH FROM OLD AGE Brother(s) Family Medical History: Diabetes Mellitus Additional Family Medical History / Comment(s): 2 BROTHERS HAVE DIABETES <Jenise Cody M - Last Filed: 11/18/18 18:58> General Exam Limitations: no limitations General appearance: alert, in no apparent distress, other Eye exam: Present: normal appearance, PERRL, EOMI. Absent: scleral icterus, con junctival injection, periorbital swelling ENT exam: Present: normal exam, normal oropharynx, mucous membranes moist Respiratory exam: Present: normal lung sounds bilaterally. Absent: respiratory distress, wheezes, rales, rhonchi, stridor Cardiovascular Exam: Present: regular rate, normal rhythm, normal heart sounds. Absent: systolic murmur, diastolic murmur, rubs, gallop, clicks GI/Abdominal exam: Present: soft, normal bowel sounds. Absent: distended, tenderness, guarding, rebound, rigid Extremities exam: Present: full ROM (Increased pain with movement), normal capillary refill, other (Skin to the right upper extremity is pink, warm, dry. Cap refills less than 3 seconds. Radial pulses 2+ and equal bilaterally.). Absent: normal inspection, tenderness, pedal edema, joint swelling, calf tenderness Neurological exam: Present: alert, oriented X3, CN II-XII intact Psychiatric exam: Present: normal affect, normal mood Skin exam: Present: warm, dry, intact, normal color. Absent: rash <Jenise Cody - Last Filed: 11/18/18 18:58> Course Vital Signs 11/18/18 17:49 Temperature 97.4 F L Pulse Rate 69 Respiratory 18 Rate Blood Pressure 147/78 O2 Sat by Pulse 97 Oximetry Medical Decision Making <Jenise Cody - Last Filed: 11/18/18 18:58> <Svetlana Andrade - Last Filed: 11/21/18 23:55> - Medical Decision Making 78-year-old male patient presents to the emergency department today for evaluation of right shoulder pain. Physical examination is unremarkable. Skin is intact with no erythema or swelling. No fever or chills. No chest pain or shortness of breath. Neurovascular status is intact. Patient's of his are consistent with arthritis exacerbation. Patient will be given a prescription for steroids. Fozia for pain medication. Is instructed to follow-up with orthopedics in his primary care physician on Wednesday. Return parameters were discussed in detail. He verbalizes understanding and agrees with this plan. (Jenise Cody) I was available for consultation in the emergency department. The history and physical exam was done by the midlevel provider. I was consulted for this patient's care. I reviewed the case with the midlevel provider and based on their presentation of the patient, I agree with the assessment, medical decision making and plan of care as documented. (Svetlana Andrade) Disposition Is patient prescribed a controlled substance at d/c from ED?: Yes When asked, does pt state using other controlled substances?: No If prescribed controlled substance>3 days was MAPS reviewed?: Prescribed <3 Days If opioid is for acute pain is fill amount 7 days or less?: Yes If Rx opioid, was Start Talking consent form obtained?: Yes Time of Disposition: 18:29 <Jenise Cody - Last Filed: 11/18/18 18:58> <Svetlana Andrade - Last Filed: 11/21/18 23:55> Clinical Impression: Degenerative arthritis of right shoulder region Disposition: HOME SELF-CARE Condition: Good Instructions (If sedation given, give patient instructions): Osteoarthritis (ED), Shoulder Pain (ED) Additional Instructions: Try applying warm moist heat to the right shoulder. Take medications as directed. Apply pain cream three times daily to the right shoulder (approximately every 8 hours). Call aviation operations specialist for an appointment on Wednesday. Follow up with your primary care physician for recheck in 1-2 days. Return to the emergency department immediately for any new, worsening, or concerning symptoms. Prescriptions: predniSONE 50 mg PO DAILY #5 tablet Acetaminophen-Codeine 300-30mg [Tylenol #3] 1 tab PO Q6H PRN #12 tablet PRN Reason: Pain Referrals: [facility],Clinic [Primary Care Provider] - 1-2 days Derian Christianson MD [STAFF PHYSICIAN] - 1-2 days
[2018-11-18] MEDS ORDERED: DICLOFENAC SODIUM GEL 100 GM TUBE TOPICAL STA (18:31)
== END 2018-11-18 19:03 | disposition home or self-care (01) ==
LOC: EC 17:45
DX: M19.011 Primary osteoarthritis, right shoulder (principal); M54.2 Cervicalgia; M25.521 Pain in right elbow; I48.91 Unspecified atrial fibrillation; I25.10 Atherosclerotic heart disease of native coronary artery without angina pectoris; I11.0 Hypertensive heart disease with heart failure; I50.9 Heart failure, unspecified; J44.9 Chronic obstructive pulmonary disease, unspecified; E78.5 Hyperlipidemia, unspecified; I25.2 Old myocardial infarction; D64.9 Anemia, unspecified; Z87.891 Personal history of nicotine dependence; Z79.01 Long term (current) use of anticoagulants; Z79.51 Long term (current) use of inhaled steroids; Z79.899 Other long term (current) drug therapy; Z86.73 Personal history of transient ischemic attack (TIA), and cerebral infarction without residual deficits; Z87.448 Personal history of other diseases of urinary system; Z95.1 Presence of aortocoronary bypass graft
CPT/HCPCS: 99283; 96372; J2930

== ENCOUNTER → 2019-01-30 | Outpatient (CLI) | payer OTHER ==
--- NOTE | 2019-01-30 17:52 | CT ---
EXAMINATION TYPE: CT chest wo con DATE OF EXAM: 01/30/2019 COMPARISON: 04/11/2016 HISTORY: Difficulty breathing. History of lung cancer. CT DLP: [address] of the chest was performed with lung and mediastinal window settings submitted. The la ck of contrast limits evaluation of the vascular, mediastinal and parenchymal structures including th e upper abdomen. LUNGS: Partial right upper lobe lobectomy noted. Previously noted spiculated nodule has been removed. Parenchymal scarring and pleural parenchymal density right upper lobe without evidence for recurrent mass. No concerning nodule or mass is appreciated. Hyperinflation compatible with COPD. MEDIASTINUM/SHANNON: Thoracic aorta is of normal caliber with limited evaluation given lack of contrast . The heart is not enlarged. No evidence for mediastinal mass. No lymph nodes greater than 1cm. UPPER ABDOMEN: Simple appearing cyst right kidney 3.2 cm. Gallstones identified. OTHER: No significant other abnormality. IMPRESSION: 1. Postsurgical changes right upper lobe. No concerning nodule or pulmonary mass.
== END | disposition home or self-care (01) ==
LOC: RADCTMAIN 16:45
PROVIDERS: ATTEND Internal Medicine Pulmonary Disease
DX: J44.9 Chronic obstructive pulmonary disease, unspecified (principal); I48.91 Unspecified atrial fibrillation; E66.9 Obesity, unspecified; G47.33 Obstructive sleep apnea (adult) (pediatric); K21.9 Gastro-esophageal reflux disease without esophagitis; Z98.890 Other specified postprocedural states
CPT/HCPCS: 71250

== ENCOUNTER 2019-03-21 21:15 | Emergency (ER) | payer OTHER ==
[2019-03-21 21:31] VITALS: BP 139/74; PULSE 85; RESP 18; TEMP 98
[2019-03-21] MEDS ORDERED: LIDOCAINE URO-JET JELLY 2% 5 ML KIT URETHRAL ONE (22:19)
--- NOTE | 2019-03-21 22:23 | ED ---
Male Urogenital HPI - General Chief complaint: Urogenital Stated complaint: UTI Time Seen by Provider: 03/21/19 21:47 Source: patient, EMS Mode of arrival: EMS - History of Present Illness Initial comments: This patient is a 78-year-old man who presents with complaint that "since yesterday morning I can't pee." The patient states that he feels he has urge to urinate. He feels suprapubic pressure. Complaint: other (Urinary retention) Onset/Timin -: hour(s) Location: abdomen Radiation: none Severity: moderate Quality: other (Pressure) Consistency: constant Improves with: none Worsens with: none Reports: urinary retention - Related Data Home Medications Medication Instructions Recorded Confirmed Tiotropium 18 Mcg/Puff [Spiriva] 1 cap INHALATION RT-DAILY 07/13/13 03/21/19 Nitroglycerin Sl Tabs [Nitrostat] 0.4 mg SUBLINGUAL Q5M PRN 03/19/16 03/21/19 Ferrous Sulfate [Iron] 325 mg PO TID 11/09/17 03/21/19 Isosorbide Mononitrate [Isosorbide 30 mg PO BID 11/09/17 03/21/19 Mononitrate ER] Simvastatin [Zocor] 20 mg PO HS 01/01/18 03/21/19 Carvedilol [Coreg] 12.5 mg PO BID 03/22/18 03/21/19 Furosemide [Lasix] 80 mg PO DAILY 03/22/18 03/21/19 Ipratropium-Albuterol Nebulize 3 ml INHALATION RT-QID 03/22/18 03/21/19 [Duoneb 0.5 mg-3 mg/3 ml Soln] Metolazone [Zaroxolyn] 2.5 mg PO DAILY 06/03/18 03/21/19 Apixaban [Eliquis] 2.5 mg PO BID 09/27/18 03/21/19 Cholecalciferol (Vitamin D3) 2,000 unit PO DAILY 03/21/19 03/21/19 [Vitamin D3] Previous Rx's Medication Instructions Recorded Potassium Chloride ER [K-Dur 20] 20 meq PO DAILY #30 tab 09/29/18 Ciprofloxacin HCl [Cipro] 500 mg PO Q12HR 7 Days #14 tab 03/25/19 Allergies Allergy/AdvReac Type Severity Reaction Status Date / Time No Known Allergies Allergy Verified 03/27/19 14:10 Review of Systems ROS Statement: Those systems with pertinent positive or pertinent negative responses have been documented in the HPI. ROS Other: All systems not noted in ROS Statement are negative. Constitutional: Denies: fever, chills Respiratory: Denies: cough, dyspnea Cardiovascular: Denies: chest pain, palpitations, edema Gastrointestinal: Reports: as per HPI, abdominal pain. Denies: nausea, vomiting, diarrhea, constipation Genitourinary: Reports: dysuria, other (Urinary retention). Denies: frequency, hematuria, discharge, testicular pain, testicular mass Musculoskeletal: Denies: back pain Skin: Denies: rash Neurological: Denies: headache Past Medical History Past Medical History: Atrial Fibrillation, Coronary Artery Disease (CAD), Heart Failure, COPD, CVA/TIA, Hyperlipidemia, Hypertension, Myocardial Infarction ([place]), Sleep Apnea/CPAP/BIPAP Additional Past Medical History / Comment(s): blood transfusion/ANEMIA, STOPPED USING HIS CPAP MACHINE YEARS AGO, CONSTIPATION, SMALL SLIDING HIATAL HERNIA AND SMALL POLYP REMOVED.,HX MILD RENAL FAILURE. Last Myocardial Infarction Date:: HAD X2 LAST ONE 2002 History of Any Multi-Drug Resistant Organisms: None Reported Past Surgical History: Appendectomy, Coronary Bypass/CABG, Orthopedic Surgery Additional Past Surgical History / Comment(s): TRIPLE BYPASS, COLONOSCOPY/EGD, R hip sx Additional Past Anesthesia/Blood Transfusion Reaction / Comment(s): CLAUSTERPHOBIA Past Psychological History: No Psychological Hx Reported Smoking Status: Former smoker Past Alcohol Use History: None Reported Past Drug Use History: None Reported - Past Family History Father Family Medical History: Cancer Additional Family Medical History / Comment(s): of pancreatic cancer Mother Family Medical History: Diabetes Mellitus Additional Family Medical History / Comment(s): AT AGE 90 WAS IN PRETTY GOOD HEALTH FROM OLD AGE Brother(s) Family Medical History: Diabetes Mellitus Additional Family Medical History / Comment(s): 2 BROTHERS HAVE DIABETES General Exam General appearance: alert, in no apparent distress Head exam: Present: atraumatic, normocephalic Respiratory exam: Present: normal lung sounds bilaterally. Absent: respiratory distress, wheezes, rales, rhonchi, stridor Cardiovascular Exam: Present: regular rate, normal rhythm, normal heart sounds. Absent: systolic murmur, diastolic murmur, rubs, gallop GI/Abdominal exam: Present: soft, tenderness (Suprapubic, mild tenderness), guarding (Suprapubic), mass (There is fullness in the suprapubic area). Absent: distended, rebound, rigid, pulsatile mass, hernia exam: Present: normal inspection Back exam: Present: normal inspection. Absent: CVA tenderness (R), CVA ten derness (L) Neurological exam: Present: alert Skin exam: Present: warm, dry, intact, normal color. Absent: rash Course Vital Signs 03/21/19 21:27 Temperature 98 F Pulse Rate 85 Respiratory 18 Rate Blood Pressure 139/74 O2 Sat by Pulse 96 Oximetry Medical Decision Making - Medical Decision Making Patient is 78-year-old man presenting to be evaluated for urinary retention. He did have a Rivera catheter placement by nursing staff with drainage of moderate amount of urine. Patient to follow with his physician/urology. Discussed return parameters - Lab Data Lab Results 03/21/19 Range/Units 22:53 Urine Color Yellow Urine Appearance Clear (Clear) Urine pH 6.5 (5.0-8.0) Ur Specific [place] 1.017 (1.001-1.035) Urine Protein Negative (Negative) Urine Glucose (UA) Negative (Negative) Urine Ketones Negative (Negative) Urine Blood Negative (Negative) Urine Nitrite Negative (Negative) Urine Bilirubin Negative (Negative) Urine Urobilinogen 4.0 (<2.0) mg/dL Ur Leukocyte Esterase Negative (Negative) Disposition Clinical Impression: Urinary retention Disposition: HOME SELF-CARE Condition: Good Instructions (If sedation given, give patient instructions): Urinary Retention in Men (ED) Is patient prescribed a controlled substance at d/c from ED?: No Referrals: Nasim Thacker DO [Primary Care Provider] - 1-2 days Ebenezer Montague MD [STAFF PHYSICIAN] - 1-2 days
[2019-03-21 23:24] LABS: Appearance,Urine Clear (Clear); Bilirubin,Urine Negative (Negative); Blood,Urine Negative (Negative); Color,Urine Yellow; Glucose,Urine (UA) Negative (Negative); Ketones,Urine Negative (Negative); Leukocyte Esterase,Urine Negative (Negative); Nitrite,Urine Negative (Negative); PH, Urine 6.5 (5.0-8.0); Protein,Urine Negative (Negative); Specific Gravity,Urine 1.017 (1.001-1.035)
== END 2019-03-22 00:30 | disposition home or self-care (01) ==
LOC: EC 21:15
DX: R33.9 Retention of urine, unspecified (principal); R10.30 Lower abdominal pain, unspecified; I48.91 Unspecified atrial fibrillation; I25.10 Atherosclerotic heart disease of native coronary artery without angina pectoris; I11.0 Hypertensive heart disease with heart failure; I50.9 Heart failure, unspecified; I25.2 Old myocardial infarction; E78.5 Hyperlipidemia, unspecified; J44.9 Chronic obstructive pulmonary disease, unspecified; G47.30 Sleep apnea, unspecified; Z79.01 Long term (current) use of anticoagulants; Z79.02 Long term (current) use of antithrombotics/antiplatelets; Z79.899 Other long term (current) drug therapy; Z79.51 Long term (current) use of inhaled steroids; Z87.891 Personal history of nicotine dependence; Z95.1 Presence of aortocoronary bypass graft; Z86.73 Personal history of transient ischemic attack (TIA), and cerebral infarction without residual deficits; Z99.89 Dependence on other enabling machines and devices
CPT/HCPCS: 51702; 81003; 99283

== ENCOUNTER 2019-03-23 16:19 | Emergency (ER) | payer OTHER ==
[2019-03-23 16:51] VITALS: BP 101/57; PULSE 82; RESP 20; TEMP 97.5
--- NOTE | 2019-03-23 18:02 | ED ---
Recheck HPI - General Chief Complaint: Recheck/Abnormal Lab/Rx Stated Complaint: plugged catheter Time Seen by Provider: 03/23/19 16:59 Source: patient Mode of arrival: ambulatory Limitations: no limitations - History of Present Illness Initial Comments: Patient is 78-year-old male presenting to the emergency department with a chief complaint of obstructed Rivera catheter. Patient states she was in the ED yesterday for urinary obstruction and was administered a Rivera catheter. Patient reports he felt great relief after was inserted. Patient reports today he was able to drain a bag with urine. He reports waking up in the morning patient states he went to follow-up with his primary care at the [facility] who told him to come back to the ED for a possible Rivera malfunction. Patient states there is urine in the catheter, however the bag is now following up. Denies increased urinary, bladder pressure. - Related Data Home Medications Medication Instructions Recorded Confirmed Tiotropium 18 Mcg/Puff [Spiriva] 1 cap INHALATION RT-DAILY 07/13/13 03/21/19 Nitroglycerin Sl Tabs [Nitrostat] 0.4 mg SUBLINGUAL Q5M PRN 03/19/16 03/21/19 Ferrous Sulfate [Iron] 325 mg PO TID 11/09/17 03/21/19 Isosorbide Mononitrate [Isosorbide 30 mg PO BID 11/09/17 03/21/19 Mononitrate ER] Simvastatin [Zocor] 20 mg PO HS 01/01/18 03/21/19 Carvedilol [Coreg] 12.5 mg PO BID 03/22/18 03/21/19 Furosemide [Lasix] 80 mg PO DAILY 03/22/18 03/21/19 Ipratropium-Albuterol Nebulize 3 ml INHALATION RT-QID 03/22/18 03/21/19 [Duoneb 0.5 mg-3 mg/3 ml Soln] Metolazone [Zaroxolyn] 2.5 mg PO DAILY 06/03/18 03/21/19 Apixaban [Eliquis] 2.5 mg PO BID 09/27/18 03/21/19 Cholecalciferol (Vitamin D3) 2,000 unit PO DAILY 03/21/19 03/21/19 [Vitamin D3] Previous Rx's Medication Instructions Recorded Potassium Chloride ER [K-Dur 20] 20 meq PO DAILY #30 tab 09/29/18 Allergies Allergy/AdvReac Type Severity Reaction Status Date / Time No Known Allergies Allergy Verified 03/23/19 16:51 Review of Systems ROS Statement: Those systems with pertinent positive or pertinent negative responses have been documented in the HPI. ROS Other: All systems not noted in ROS Statement are negative. Past Medical History Past Medical History: Atrial Fibrillation, Coronary Artery Disease (CAD), Heart Failure, COPD, CVA/TIA, Hyperlipidemia, Hypertension, Myocardial Infarction ([place]), Sleep Apnea/CPAP/BIPAP Additional Past Medical History / Comment(s): blood transfusion/ANEMIA, STOPPED USING HIS CPAP MACHINE YEARS AGO, CONSTIPATION, SMALL SLIDING HIATAL HERNIA AND SMALL POLYP REMOVED.,HX MILD RENAL FAILURE. Last Myocardial Infarction Date:: HAD X2 LAST ONE 2002 History of Any Multi-Drug Resistant Organisms: None Reported Past Surgical History: Appendectomy, Coronary Bypass/CABG, Orthopedic Surgery Additional Past Surgical History / Comment(s): TRIPLE BYPASS, COLONOSCOPY/EGD, R hip sx Additional Past Anesthesia/Blood Transfusion Reaction / Comment(s): CLAUSTERPHOBIA Past Psychological History: No Psychological Hx Reported Smoking Status: Former smoker Past Alcohol Use History: None Reported Past Drug Use History: None Reported - Past Family History Father Family Medical History: Cancer Additional Family Medical History / Comment(s): of pancreatic cancer Mother Family Medical History: Diabetes Mellitus Additional Family Medical History / Comment(s): AT AGE 90 WAS IN PRETTY GOOD HEALTH FROM OLD AGE Brother(s) Family Medical History: Diabetes Mellitus Additional Family Medical History / Comment(s): 2 BROTHERS HAVE DIABETES General Exam Limitations: no limitations General appearance: alert, in no apparent distress Head exam: Present: atraumatic, normocephalic, normal inspection Eye exam: Present: normal appearance, PERRL, EOMI Pupils: Present: normal accommodation ENT exam: Present: normal exam, normal oropharynx, mucous membranes moist, TM's normal bilaterally, normal external ear exam Neck exam: Present: normal inspection, full ROM Respiratory exam: Present: normal lung sounds bilaterally Cardiovascular Exam: Present: regular rate, normal rhythm, normal heart sounds GI/Abdominal exam: Present: soft, tenderness (Suprapubic tenderness, mild.). Absent: guarding, rebound exam: Present: normal inspection Extremities exam: Present: normal inspection, full ROM Back exam: Present: normal inspection, full ROM Neurological exam: Present: alert, oriented X3 Psychiatric exam: Present: normal affect, normal mood Skin exam: Present: warm, dry, intact, normal color Course Vital Signs 03/23/19 16:47 Temperature 97.5 F L Pulse Rate 82 Respiratory 20 Rate Blood Pressure 101/57 O2 Sat by Pulse 99 Oximetry Medical Decision Making - Medical Decision Making Patient is 78-year-old male presenting to emergency Department with a chief complaint of urinary obstruction. Patient had a Rivera catheter inserted yesterday in the ED. On physical examination it appears the bag is not draining urine although there is urine in the catheter. I suspect it could be a possible blockage at that catheter bag junction. The bag was replaced and the patient had full urine flow afterwards. Bladder scan indicates 57 mL. Strict return p arameters were thoroughly discussed patient was understanding and agreeable. Patient advised to follow-up with a urologist. Case discussed with physician. Disposition Clinical Impression: Malfunction of Rivera catheter Disposition: HOME SELF-CARE Condition: Stable Instructions (If sedation given, give patient instructions): Rivera Catheter Placement and Care (ED) Additional Instructions: Please follow with the urologist. Please return to emergency department if symptoms worsen. Follow proper Rivera care. Is patient prescribed a controlled substance at d/c from ED?: No Referrals: [facility],Clinic [Primary Care Provider] - 1-2 days Ebenezer Montague MD [STAFF PHYSICIAN] - 1-2 days Time of Disposition: 18:02
== END 2019-03-23 18:12 | disposition home or self-care (01) ==
LOC: EC 16:19
DX: T83.098A Other mechanical complication of other urinary catheter, initial encounter (principal); I48.91 Unspecified atrial fibrillation; I25.10 Atherosclerotic heart disease of native coronary artery without angina pectoris; I11.0 Hypertensive heart disease with heart failure; I50.9 Heart failure, unspecified; J44.9 Chronic obstructive pulmonary disease, unspecified; E78.5 Hyperlipidemia, unspecified; I25.2 Old myocardial infarction; D64.9 Anemia, unspecified; G47.30 Sleep apnea, unspecified; Z99.89 Dependence on other enabling machines and devices; Z86.73 Personal history of transient ischemic attack (TIA), and cerebral infarction without residual deficits; Z95.1 Presence of aortocoronary bypass graft; Z87.891 Personal history of nicotine dependence; Z79.01 Long term (current) use of anticoagulants; Z79.899 Other long term (current) drug therapy
CPT/HCPCS: 99283

== ENCOUNTER 2019-03-25 13:11 | Emergency (ER) | payer MEDICARE, OTHER ==
[2019-03-25 13:17] VITALS: BP 140/73; PULSE 66; RESP 16; TEMP 97.5
[2019-03-25] MEDS ORDERED: LIDOCAINE URO-JET JELLY 2% 5 ML KIT URETHRAL ONE (14:03)
[2019-03-25] MEDS ORDERED: CIPROFLOXACIN HCL 500 MG TAB PO STA (15:09)
--- NOTE | 2019-03-25 15:09 | ED ---
Male Urogenital HPI - General Chief complaint: Urogenital Stated complaint: Urogenital Time Seen by Provider: 03/25/19 13:35 Source: patient, RN notes reviewed, old records reviewed Mode of arrival: ambulatory Limitations: no limitations - History of Present Illness Initial comments: This Patient is a 78-year-old male presents emergency department today with urethral meatus pain. Patient reports that he had a Hopkins catheter placed for acute urinary retention after taking the decongestant medicine earlier this past week. [facility] the Hopkins next week but do not know when the hopkins is to be removed. Patient reports that he has some darker urine coming from the Hopkins bag as of today but he has not been drinking as much and was only been drinking soda NT. Patient states that he has no back pain. Denies any fevers or chills. - Related Data Home Medications Medication Instructions Recorded Confirmed Tiotropium 18 Mcg/Puff [Spiriva] 1 cap INHALATION RT-DAILY 07/13/13 03/21/19 Nitroglycerin Sl Tabs [Nitrostat] 0.4 mg SUBLINGUAL Q5M PRN 03/19/16 03/21/19 Ferrous Sulfate [Iron] 325 mg PO TID 11/09/17 03/21/19 Isosorbide Mononitrate [Isosorbide 30 mg PO BID 11/09/17 03/21/19 Mononitrate ER] Simvastatin [Zocor] 20 mg PO HS 01/01/18 03/21/19 Carvedilol [Coreg] 12.5 mg PO BID 03/22/18 03/21/19 Furosemide [Lasix] 80 mg PO DAILY 03/22/18 03/21/19 Ipratropium-Albuterol Nebulize 3 ml INHALATION RT-QID 03/22/18 03/21/19 [Duoneb 0.5 mg-3 mg/3 ml Soln] Metolazone [Zaroxolyn] 2.5 mg PO DAILY 06/03/18 03/21/19 Apixaban [Eliquis] 2.5 mg PO BID 09/27/18 03/21/19 Cholecalciferol (Vitamin D3) 2,000 unit PO DAILY 03/21/19 03/21/19 [Vitamin D3] Previous Rx's Medication Instructions Recorded Potassium Chloride ER [K-Dur 20] 20 meq PO DAILY #30 tab 09/29/18 Ciprofloxacin HCl [Cipro] 500 mg PO Q12HR 7 Days #14 tab 03/25/19 Allergies Allergy/AdvReac Type Severity Reaction Status Date / Time No Known Allergies Allergy Verified 03/23/19 16:51 Review of Systems ROS Statement: Those systems with pertinent positive or pertinent negative responses have been documented in the HPI. ROS Other: All systems not noted in ROS Statement are negative. Past Medical History Past Medical History: Atrial Fibrillation, Coronary Artery Disease (CAD), Heart Failure, COPD, CVA/TIA, Hyperlipidemia, Hypertension, Myocardial Infarction ([place]), Sleep Apnea/CPAP/BIPAP Additional Past Medical History / Comment(s): blood transfusion/ANEMIA, STOPPED USING HIS CPAP MACHINE YEARS AGO, CONSTIPATION, SMALL SLIDING HIATAL HERNIA AND SMALL POLYP REMOVED.,HX MILD RENAL FAILURE. Last Myocardial Infarction Date:: HAD X2 LAST ONE 2002 History of Any Multi-Drug Resistant Organisms: None Reported Past Surgical History: Appendectomy, Coronary Bypass/CABG, Orthopedic Surgery Additional Past Surgical History / Comment(s): TRIPLE BYPASS, COLONOSCOPY/EGD, R hip sx Additional Past Anesthesia/Blood Transfusion Reaction / Comment(s): CLAUSTERPHOBIA Past Psychological History: No Psychological Hx Reported Smoking Status: Former smoker Past Alcohol Use History: None Reported Past Drug Use History: None Reported - Past Family History Father Family Medical History: Cancer Additional Family Medical History / Comment(s): of pancreatic cancer Mother Family Medical History: Diabetes Mellitus Additional Family Medical History / Comment(s): AT AGE 90 WAS IN PRETTY GOOD HEALTH FROM OLD AGE Brother(s) Family Medical History: Diabetes Mellitus Additional Family Medical History / Comment(s): 2 BROTHERS HAVE DIABETES General Exam - General Exam Comments Initial Comments: Alert and oriented 78-year-old male. No significant distress. Here with his . Limitations: no limitations General appearance: alert, in no apparent distress Head exam: Present: atraumatic, normocephalic, normal inspection Eye exam: Present: normal appearance, PERRL, EOMI. Absent: scleral icterus, conjunctival injection, periorbital swelling ENT exam: Present: normal exam, mucous membranes moist Neck exam: Present: normal inspection. Absent: tenderness, meningismus, lymphadenopathy Respiratory exam: Present: normal lung sounds bilaterally. Absent: respiratory distress, wheezes, rales, rhonchi, stridor Cardiovascular Exam: Present: regular rate, normal rhythm, normal heart sounds. Absent: systolic murmur, diastolic murmur, rubs, gallop, clicks exam: Present: normal inspection. Absent: urethral discharge (Patient has some erythema around the urethral meatus.Discharge. Indwelling Hopkins catheter is noted. Patient reports tenderness to palpation over the urethral meatus. ) Extremities exam: Present: normal inspection, full ROM, normal capillary refill. Absent: tenderness, pedal edema, joint swelling, calf tenderness Back exam: Present: normal inspection Neurological exam: Present: alert, oriented X3, CN II-XII intact Psychiatric exam: Present: normal affect, normal mood Course Vital Signs 03/25/19 13:13 Temperature 97.5 F L Pulse Rate 66 Respiratory 16 Rate Blood Pressure 140/73 O2 Sat by Pulse 93 L Oximetry Medical Decision Making - Medical Decision Making Patient is a 70-year-old male who presents with urethral meatus pain from indwelling Hopkins catheter. This time he does have some tenderness, and erythema around the urethral meatus. Patient has no significant discharge. A urine sample was completed from his Hopkins catheter does show some concern for infection. He states he does have an upcoming appointment to have the catheter removed. He had a small amount of Urojet applied to the end of the urethral meatus and did have improvement of his discomfort and symptoms. Patient was offered to remove the Hopkins bag, but he would have recurrent retention discussed. Asked to place another Hopkins in. He stated that that was very painful and he does not want to have it removed unless a urologist or the appropriate follow-up with urology to have the Hopkins removed. I discussed that he can have the Hopkins in and follow-up with urology early next week as scheduled and to contact the CT for his appointment times for the Hopkins removal. In the meantime urinalysis did show some concern for infection with numerous red blood cells likely from the traumatic cath as well as some white blood cells were noted. Urine culture will be completed. Did start the Patient on Cipro and w ill continue this course. - Lab Data Lab Results 03/25/19 Range/Units 14:02 Urine Color Dark Brown Urine Appearance Turbid (Clear) Urine pH 5.5 (5.0-8.0) Ur Specific [place] 1.023 (1.001-1.035) Urine Protein 1+ H (Negative) Urine Glucose (UA) Negative (Negative) Urine Ketones Negative (Negative) Urine Blood Large H (Negative) Urine Nitrite Negative (Negative) Urine Bilirubin Negative (Negative) Urine Urobilinogen 2.0 (<2.0) mg/dL Ur Leukocyte Esterase Small H (Negative) Urine RBC >182 H (0-5) /hpf Urine WBC 57 H (0-5) /hpf Urine Bacteria Rare H (None) /hpf Urine Mucus Many H (None) /hpf Disposition Clinical Impression: Urethral meatus pain, UTI (urinary tract infection), Indwelling Hopkins catheter present Disposition: HOME SELF-CARE Condition: Good Instructions (If sedation given, give patient instructions): Urinary Tract Infection in Men (ED) Additional Instructions: Patient condition continues a thin amount of the Urojet to the tip of the urethral meatus. Patient advised to a follow-up with urology on Wednesday to have the catheter removed. Take the medication as prescribed. Prescriptions: Ciprofloxacin HCl [Cipro] 500 mg PO Q12HR 7 Days #14 tab Is patient prescribed a controlled substance at d/c from ED?: No Referrals: [facility],Clinic [Primary Care Provider] - 1-2 days Ebenezer Montague MD [STAFF PHYSICIAN] - 1-2 days Time of Disposition: 15:09
[2019-03-25 15:15] LABS: Appearance,Urine Turbid (Clear); Bacteria,Urine Rare /hpf; Bilirubin,Urine Negative (Negative); Blood,Urine Large (Negative); Color,Urine Dark Brown; Glucose,Urine (UA) Negative (Negative); Ketones,Urine Negative (Negative); Leukocyte Esterase,Urine Small (Negative); Mucus,Urine Many /hpf; Nitrite,Urine Negative (Negative); PH, Urine 5.5 (5.0-8.0); Protein,Urine 1+ (Negative); RBC,Urine >182 /hpf (0-5); Specific Gravity,Urine 1.023 (1.001-1.035); WBC,Urine 57 /hpf (0-5)
== END 2019-03-25 15:44 | disposition home or self-care (01) ==
LOC: EC 13:11
DX: T83.518A Infection and inflammatory reaction due to other urinary catheter, initial encounter (principal); N39.0 Urinary tract infection, site not specified; I48.91 Unspecified atrial fibrillation; I25.10 Atherosclerotic heart disease of native coronary artery without angina pectoris; I11.0 Hypertensive heart disease with heart failure; I50.9 Heart failure, unspecified; J44.9 Chronic obstructive pulmonary disease, unspecified; E78.5 Hyperlipidemia, unspecified; I25.2 Old myocardial infarction; D64.9 Anemia, unspecified; Z87.891 Personal history of nicotine dependence; Z79.01 Long term (current) use of anticoagulants; Z79.899 Other long term (current) drug therapy; Z95.1 Presence of aortocoronary bypass graft; Z53.29 Procedure and treatment not carried out because of patient's decision for other reasons
CPT/HCPCS: 81001; 87077; 87086; 87186; 99284

== ENCOUNTER 2019-03-27 14:07 | Emergency (ER) | payer MEDICARE, OTHER ==
[2019-03-27 14:13] VITALS: BP 130/68; PULSE 72; RESP 18; TEMP 97.8
--- NOTE | 2019-03-27 15:46 | ED ---
Recheck HPI - General Source: patient Mode of arrival: ambulatory Limitations: no limitations <Ana Luisa Camacho - Last Filed: 03/27/19 16:39> <Tam Tirado - Last Filed: 03/27/19 16:48> - General Chief Complaint: Recheck/Abnormal Lab/Rx Stated Complaint: Catheter removal Time Seen by Provider: 03/27/19 14:15 - History of Present Illness Initial Comments: 78-year-old male presenting today for chief complaint of catheter removal. Patient stated urinary retention one week ago and he had a Hopkins catheter placed. He attempted to make follow-up by urology however they stated they could not get the patient in right away he states he is having irritation at the meatus and would like this removed. Patient denies any fevers denies abdominal pain and has no other complaints denies any blood in the urinary catheter bag. Patient presented to the ER as rectal examination by the outpatient neurology clinic for removal of Hopkins catheter. Patient appears well on arrival no signs of acute distress afebrile nontoxic in appearance (Ana Luisa Camacho) - Related Data Home Medications Medication Instructions Recorded Confirmed Tiotropium 18 Mcg/Puff [Spiriva] 1 cap INHALATION RT-DAILY 07/13/13 03/21/19 Nitroglycerin Sl Tabs [Nitrostat] 0.4 mg SUBLINGUAL Q5M PRN 03/19/16 03/21/19 Ferrous Sulfate [Iron] 325 mg PO TID 11/09/17 03/21/19 Isosorbide Mononitrate [Isosorbide 30 mg PO BID 11/09/17 03/21/19 Mononitrate ER] Simvastatin [Zocor] 20 mg PO HS 01/01/18 03/21/19 Carvedilol [Coreg] 12.5 mg PO BID 03/22/18 03/21/19 Furosemide [Lasix] 80 mg PO DAILY 03/22/18 03/21/19 Ipratropium-Albuterol Nebulize 3 ml INHALATION RT-QID 03/22/18 03/21/19 [Duoneb 0.5 mg-3 mg/3 ml Soln] Metolazone [Zaroxolyn] 2.5 mg PO DAILY 06/03/18 03/21/19 Apixaban [Eliquis] 2.5 mg PO BID 09/27/18 03/21/19 Cholecalciferol (Vitamin D3) 2,000 unit PO DAILY 03/21/19 03/21/19 [Vitamin D3] Previous Rx's Medication Instructions Recorded Potassium Chloride ER [K-Dur 20] 20 meq PO DAILY #30 tab 09/29/18 Ciprofloxacin HCl [Cipro] 500 mg PO Q12HR 7 Days #14 tab 03/25/19 Allergies Allergy/AdvReac Type Severity Reaction Status Date / Time No Known Allergies Allergy Verified 03/27/19 14:10 Review of Systems ROS Other: All systems not noted in ROS Statement are negative. <Ana Luisa Camacho - Last Filed: 03/27/19 16:39> ROS Other: All systems not noted in ROS Statement are negative. <Tam Tirado - Last Filed: 03/27/19 16:48> ROS Statement: Those systems with pertinent positive or pertinent negative responses have been documented in the HPI. Past Medical History Past Medical History: Atrial Fibrillation, Coronary Artery Disease (CAD), Heart Failure, COPD, CVA/TIA, Hyperlipidemia, Hypertension, Myocardial Infarction ([place]), Sleep Apnea/CPAP/BIPAP Additional Past Medical History / Comment(s): blood transfusion/ANEMIA, STOPPED USING HIS CPAP MACHINE YEARS AGO, CONSTIPATION, SMALL SLIDING HIATAL HERNIA AND SMALL POLYP REMOVED.,HX MILD RENAL FAILURE. Last Myocardial Infarction Date:: HAD X2 LAST ONE 2002 History of Any Multi-Drug Resistant Organisms: None Reported Past Surgical History: Appendectomy, Coronary Bypass/CABG, Orthopedic Surgery Additional Past Surgical History / Comment(s): TRIPLE BYPASS, COLONOSCOPY/EGD, R hip sx Additional Past Anesthesia/Blood Transfusion Reaction / Comment(s): CLAUSTERPHOBIA Past Psychological History: No Psychological Hx Reported Smoking Status: Former smoker Past Alcohol Use History: None Reported Past Drug Use History: None Reported - Past Family History Father Family Medical History: Cancer Additional Family Medical History / Comment(s): of pancreatic cancer Mother Family Medical History: Diabetes Mellitus Additional Family Medical History / Comment(s): AT AGE 90 WAS IN PRETTY GOOD HEALTH FROM OLD AGE Brother(s) Family Medical History: Diabetes Mellitus Additional Family Medical History / Comment(s): 2 BROTHERS HAVE DIABETES <Ana Luisa Camacho - Last Filed: 03/27/19 16:39> General Exam Limitations: no limitations <Ana Luisa Camacho Last Filed: 03/27/19 16:39> - General Exam Comments Initial Comments: General: The patient is awake and alert, in no distress, and does not appear acutely ill. Eye: +3 mm pupils are equal, round and reactive to light, extra-ocular movements are intact. No nystagmus. There is normal conjunctiva bilaterally. No signs of icterus. Cardiovascular: There is a regular rate and rhythm. No murmur, rub or gallop is appreciated. Respiratory: Lungs are clear to auscultation, respirations are non-labored, breath sounds are equal. No wheezes, stridor, rales, or rhonchi. Gastrointestinal: Soft, non-distended, non-tender abdomen without masses or organomegaly noted. There is no rebound or guarding present. Circumcised penis, hopkins catheter in place. Musculoskeletal: Normal ROM, no tenderness. Strength 5/5. Sensation intact. Pulses equal bilaterally 2+. Neurological: A&O x 3. CN II-XII intact grossly, There are no obvious motor or sensory deficits. Coordination appears grossly intact. Speech is normal. Skin: Skin is warm and dry and no rashes or lesions are noted. Psychiatric: Cooperative, appropriate mood & affect, normal judgment. (Ana Luisa Camacho) Course <Tam Tirado - Last Filed: 03/27/19 16:48> Vital Signs 03/27/19 03/27/19 14:10 16:45 Temperature 97.8 F Pulse Rate 72 Respiratory 18 18 Rate Blood Pressure 130/68 O2 Sat by Pulse 95 Oximetry - Reevaluation(s) Reevaluation #1: 03/27/19 16:48 PA supervision: I personally evaluate this case and observe the patient patient is here and does have his catheter removed. He is instructed to follow-up and return if needed. I do agree with the assessment and plan. (Tam Tirado) Medical Decision Making <Ana Luisa Camacho - Last Filed: 03/27/19 16:39> - Medical Decision Making 78yo male presenting for catheter removal. Patient was instructed by urology to come for removal. Patient has only 180 mL on bladder scan. He stated tonight to attempt void at home. Patient denies abdominal pain denies any other complaints. Patient appears well. Return parameters including abdominal distention or inability to urinate by this evening were discussed he must return for reinsertion of Hopkins catheter. Patient verbalized understanding was discharged appearing well. Discussed case attending provider Dr. Tirado who is agreeable to plan at discharge at this time. (Ana Luisa Camacho) Disposition Is patient prescribed a controlled substance at d/c from ED?: No Time of Disposition: 16:34 <Ana Luisa Camacho - Last Filed: 03/27/19 16:39> <Tam Tirado - Last Filed: 03/27/19 16:48> Clinical Impression: Encounter for Hopkins catheter removal Disposition: HOME SELF-CARE Condition: Good Additional Instructions: Please use medication as discussed. Please follow-up with family doctor in the next 2 days, and urology in next week. Please return to emergency room if the symptoms increase or worsen or for any other concerns. Referrals: [facility],Clinic [Primary Care Provider] - 1-2 days Shaan Brown MD [STAFF PHYSICIAN] - 1-2 days
== END 2019-03-27 16:45 | disposition home or self-care (01) ==
LOC: EC 14:07
DX: Z46.6 Encounter for fitting and adjustment of urinary device (principal); I48.91 Unspecified atrial fibrillation; I25.10 Atherosclerotic heart disease of native coronary artery without angina pectoris; I11.0 Hypertensive heart disease with heart failure; I50.9 Heart failure, unspecified; J44.9 Chronic obstructive pulmonary disease, unspecified; E78.5 Hyperlipidemia, unspecified; I25.2 Old myocardial infarction; D64.9 Anemia, unspecified; Z87.891 Personal history of nicotine dependence; Z79.01 Long term (current) use of anticoagulants; Z79.899 Other long term (current) drug therapy; Z86.73 Personal history of transient ischemic attack (TIA), and cerebral infarction without residual deficits; Z95.1 Presence of aortocoronary bypass graft
CPT/HCPCS: 99283

== ENCOUNTER 2019-09-02 17:02 | Emergency (ER) | payer OTHER, MEDICARE ==
[2019-09-02] MEDS ORDERED: DIPH,PERTUS(ACELL)TETVAC-LF 0.5 ML VIAL IM ONE (17:07)
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
[2019-09-02 17:30] VITALS: TEMP 97.6
[2019-09-02 17:44] LABS: Basophils % (A) 0 %; Eosinophils # (A) 0.1 k/uL (0-0.7); Eosinophils % (A) 2 %; HCT 40.7 % (39.0-53.0); HGB 13.7 gm/dL (13.0-17.5); Lymphocytes # (A) 1.2 k/uL (1.0-4.8); Lymphocytes % (A) 16 %; MCH 32.7 pg (25.0-35.0); MCHC 33.5 g/dL (31.0-37.0); MCV 97.7 fL (80.0-100.0); Mean Platelet Volume 8.2; Monocytes # (A) 0.5 k/uL (0-1.0); Monocytes % (A) 7 %; Neutrophils # (A) 5.5 k/uL (1.3-7.7); Neutrophils % (A) 73 %; Platelet Count 174 k/uL (150-450); RBC 4.17 m/uL (4.30-5.90); RDW 13.7 % (11.5-15.5); WBC 7.5 k/uL (3.8-10.6)
[2019-09-02 17:59] LABS: Albumin 3.1 g/dL (3.5-5.0); Calcium 8.8 mg/dL (8.4-10.2); Total Bilirubin 1.3 mg/dL (0.2-1.3); Total Protein 6.8 g/dL (6.3-8.2)
[2019-09-02 18:00] LABS: INR 1.2 (<1.2); Partial Thromboplastin Time 24.2 sec (22.0-30.0); Prothrombin Time 12.3 sec (9.0-12.0)
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
[2019-09-02] MEDS ORDERED: POTASSIUM CHLORIDE ER 20 MEQ TAB.ER PO STA (19:49)
[2019-09-02 20:40] VITALS: BP 121/51; PULSE 66; RESP 20
== END 2019-09-02 20:37 | disposition home or self-care (01) ==
LOC: EC 17:02
DX: S20.219A Contusion of unspecified front wall of thorax, initial encounter (principal); S80.02XA Contusion of left knee, initial encounter; S80.01XA Contusion of right knee, initial encounter; S51.011A Laceration without foreign body of right elbow, initial encounter; S61.512A Laceration without foreign body of left wrist, initial encounter; M54.2 Cervicalgia; E87.6 Hypokalemia; I48.91 Unspecified atrial fibrillation; I25.10 Atherosclerotic heart disease of native coronary artery without angina pectoris; I11.0 Hypertensive heart disease with heart failure; I50.9 Heart failure, unspecified; J44.9 Chronic obstructive pulmonary disease, unspecified; E78.5 Hyperlipidemia, unspecified; I25.2 Old myocardial infarction; G47.30 Sleep apnea, unspecified; Z86.73 Personal history of transient ischemic attack (TIA), and cerebral infarction without residual deficits; Z99.89 Dependence on other enabling machines and devices; Z95.1 Presence of aortocoronary bypass graft; Z87.891 Personal history of nicotine dependence; Z79.01 Long term (current) use of anticoagulants; Z79.899 Other long term (current) drug therapy; Z53.8 Procedure and treatment not carried out for other reasons; V43.52XA Car driver injured in collision with other type car in traffic accident, initial encounter; Y92.410 Unspecified street and highway as the place of occurrence of the external cause
CPT/HCPCS: 99285; 36415; 93005; 80053; 84484; 85025; 85610; 85730; 73562; 72125; 70450; 71260; 74177; Q9967

== ENCOUNTER 2019-09-25 17:48 | Inpatient (IN) | payer OTHER, MEDICARE ==
--- NOTE | 2019-09-25 18:30 | ED ---
Recheck HPI - General Chief Complaint: Extremity Problem,Nontraumatic Stated Complaint: leg swelling sent by pcp Time Seen by Provider: 09/25/19 18:06 Source: patient, RN notes reviewed, old records reviewed Mode of arrival: wheelchair Limitations: physical limitation - History of Present Illness Initial Comments: this is a 70-year-old male DF for evaluation of significant bilateral lower extremity edema worse on the right than the left significant redness and drainage on the right states legs are both very itchy states his problems been going on for about a year but is progressively worsening, denying chest pain shortness of breath no abdominal pain. Patient states he was sent in by his primary care for further evaluation management MD Complaint: other (Recheck of lower extremity edema, swelling, right lower extremity redness) -: year(s) Returns Today for: cellulitis follow-up, persistent/worsening pain related to initial visit Symptoms Since Prior Visit: worsening pain, worsening swelling, worsening redness Associated Symptoms: none - Related Data Home Medications Medication Instructions Recorded Confirmed Tiotropium 18 Mcg/Puff [Spiriva] 1 cap INHALATION RT-DAILY 07/13/13 03/21/19 Nitroglycerin Sl Tabs [Nitrostat] 0.4 mg SUBLINGUAL Q5M PRN 03/19/16 03/21/19 Ferrous Sulfate [Iron] 325 mg PO TID 11/09/17 03/21/19 Isosorbide Mononitrate [Isosorbide 30 mg PO BID 11/09/17 03/21/19 Mononitrate ER] Simvastatin [Zocor] 20 mg PO HS 01/01/18 03/21/19 Carvedilol [Coreg] 12.5 mg PO BID 03/22/18 03/21/19 Furosemide [Lasix] 80 mg PO DAILY 03/22/18 03/21/19 Ipratropium-Albuterol Nebulize 3 ml INHALATION RT-QID 03/22/18 03/21/19 [Duoneb 0.5 mg-3 mg/3 ml Soln] Metolazone [Zaroxolyn] 2.5 mg PO DAILY 06/03/18 03/21/19 Apixaban [Eliquis] 2.5 mg PO BID 09/27/18 03/21/19 Cholecalciferol (Vitamin D3) 2,000 unit PO DAILY 03/21/19 03/21/19 [Vitamin D3] Previous Rx's Medication Instructions Recorded Potassium Chloride ER [K-Dur 20] 20 meq PO DAILY #30 tab 09/29/18 Ciprofloxacin HCl [Cipro] 500 mg PO Q12HR 7 Days #14 tab 03/25/19 Allergies Allergy/AdvReac Type Severity Reaction Status Date / Time No Known Allergies Allergy Verified 09/25/19 17:58 Review of Systems ROS Statement: Those systems with pertinent positive or pertinent negative responses have been documented in the HPI. ROS Other: All systems not noted in ROS Statement are negative. Past Medical History Past Medical History: Atrial Fibrillation, Coronary Artery Disease (CAD), Heart Failure, COPD, CVA/TIA, Hyperlipidemia, Hypertension, Myocardial Infarction ([place]), Sleep Apnea/CPAP/BIPAP Additional Past Medical History / Comment(s): blood transfusion/ANEMIA, STOPPED USING HIS CPAP MACHINE YEARS AGO, CONSTIPATION, SMALL SLIDING HIATAL HERNIA AND SMALL POLYP REMOVED.,HX MILD RENAL FAILURE. Last Myocardial Infarction Date:: HAD X2 LAST ONE 2002 History of Any Multi-Drug Resistant Organisms: None Reported Past Surgical History: Appendectomy, Coronary Bypass/CABG, Orthopedic Surgery Additional Past Surgical History / Comment(s): TRIPLE BYPASS, COLONOSCOPY/EGD, R hip sx Additional Past Anesthesia/Blood Transfusion Reaction / Comment(s): CLAUST ERPHOBIA Past Psychological History: No Psychological Hx Reported Smoking Status: Former smoker Past Alcohol Use History: None Reported Past Drug Use History: None Reported - Past Family History Father Family Medical History: Cancer Additional Family Medical History / Comment(s): of pancreatic cancer Mother Family Medical History: Diabetes Mellitus Additional Family Medical History / Comment(s): AT AGE 90 WAS IN PRETTY GOOD HEALTH FROM OLD AGE Brother(s) Family Medical History: Diabetes Mellitus Additional Family Medical History / Comment(s): 2 BROTHERS HAVE DIABETES General Exam Limitations: physical limitation General appearance: alert, in no apparent distress Head exam: Present: atraumatic, normocephalic, normal inspection Eye exam: Present: normal appearance, PERRL, EOMI. Absent: scleral icterus, conjunctival injection, periorbital swelling ENT exam: Present: normal exam, mucous membranes moist Neck exam: Present: normal inspection. Absent: tenderness, meningismus, lymphadenopathy Respiratory exam: Present: normal lung sounds bilaterally. Absent: respiratory distress, wheezes, rales, rhonchi, stridor Cardiovascular Exam: Present: regular rate, normal rhythm, normal heart sounds. Absent: systolic murmur, diastolic murmur, rubs, gallop, clicks GI/Abdominal exam: Present: soft, normal bowel sounds. Absent: distended, tenderness, guarding, rebound, rigid Extremities exam: Present: normal inspection, full ROM, normal capillary refill. Absent: tenderness, pedal edema, joint swelling, calf tenderness Back exam: Present: normal inspection Neurological exam: Present: alert, oriented X3, CN II-XII intact Psychiatric exam: Present: normal affect, normal mood Skin exam: Present: warm, dry, intact, normal color. Absent: rash Course Vital Signs 09/25/19 09/25/19 09/25/19 17:55 19:01 19:26 Temperature 98.2 F 97.7 F Pulse Rate 72 65 72 Respiratory 18 16 18 Rate Blood Pressure 104/54 115/58 119/53 O2 Sat by Pulse 97 98 98 Oximetry - Reevaluation(s) Reevaluation #1: 09/25/19 18:34 Medical records reviewed Reevaluation #2: 09/25/19 19:45 Patient with no significant improvement still pain in both legs weeping from the right leg - Consultations Consultation #1: Spoke with PMH were agreeable to admit patient Medical Decision Making - Medical Decision Making 70 male DF for evaluation of significant lower extremity edema, patient was placed on diuresis as well as antibiotics for significant right low salicylate is drainage, patient will be admitted for further evaluation management - Lab Data Result diagrams: 09/25/19 18:38 09/25/19 18:38 Lab Results 09/25/19 09/25/19 09/25/19 Range/Units 18:38 18:38 18:38 WBC 7.0 (3.8-10.6) k/uL RBC 3.34 L (4.30-5.90) m/uL Hgb 11.7 L (13.0-17.5) gm/dL Hct 33.2 L (39.0-53.0) % MCV 99.5 (80.0-100.0) fL MCH 35.0 (25.0-35.0) pg MCHC 35.2 (31.0-37.0) g/dL RDW 14.2 (11.5-15.5) % Plt Count 173 (150-450) k/uL Neutrophils % 74 % Lymphocytes % 12 % Monocytes % 9 % Eosinophils % 2 % Basophils % 0 % Neutrophils # 5.1 (1.3-7.7) k/uL Lymphocytes # 0.8 L (1.0-4.8) k/uL Monocytes # 0.6 (0-1.0) k/uL Eosinophils # 0.2 (0-0.7) k/uL Basophils # 0.0 (0-0.2) k/uL Sodium 137 (137-145) mmol/L Potassium 3.4 L (3.5-5.1) mmol/L Chloride 99 (98-107) mmol/L Carbon Dioxide 30 (22-30) mmol/L Anion Gap 8 mmol/L BUN 21 H (9-20) mg/dL Creatinine 1.07 (0.66-1.25) mg/dL Est GFR (CKD-EPI)AfAm 77 (>60 ml/min/1.73 sqM) Est GFR (CKD-EPI)NonAf 67 (>60 ml/min/1.73 sqM) Glucose 109 H (74-99) mg/dL Calcium 8.2 L (8.4-10.2) mg/dL Phosphorus 2.9 (2.5-4.5) mg/dL Magnesium 1.9 (1.6-2.3) mg/dL Total Bilirubin 1.6 H (0.2-1.3) mg/dL AST 29 (17-59) U/L ALT 13 (4-49) U/L Alkaline Phosphatase 60 (38-126) U/L Troponin I 0.025 (0.000-0.034) ng/mL NT-Pro-B Natriuret Pep pg/mL Total Protein 5.9 L (6.3-8.2) g/dL Albumin 2.9 L (3.5-5.0) g/dL 09/25/19 Range/Units 18:38 WBC (3.8-10.6) k/uL RBC (4.30-5.90) m/uL Hgb (13.0-17.5) gm/dL Hct (39.0-53.0) % MCV (80.0-100.0) fL MCH (25.0-35.0) pg MCHC (31.0-37.0) g/dL RDW (11.5-15.5) % Plt Count (150-450) k/uL Neutrophils % % Lymphocytes % % Monocytes % % Eosinophils % % Basophils % % Neutrophils # (1.3-7.7) k/uL Lymphocytes # (1.0-4.8) k/uL Monocytes # (0-1.0) k/uL Eosinophils # (0-0.7) k/uL Basophils # (0-0.2) k/uL Sodium (137-145) mmol/L Potassium (3.5-5.1) mmol/L Chloride (98-107) mmol/L Carbon Dioxide (22-30) mmol/L Anion Gap mmol/L BUN (9-20) mg/dL Creatinine (0.66-1.25) mg/dL Est GFR (CKD-EPI)AfAm (>60 ml/min/1.73 sqM) Est GFR (CKD-EPI)NonAf (>60 ml/min/1.73 sqM) Glucose (74-99) mg/dL Calcium (8.4-10.2) mg/dL Phosphorus (2.5-4.5) mg/dL Magnesium (1.6-2.3) mg/dL Total Bilirubin (0.2-1.3) mg/dL AST (17-59) U/L ALT (4-49) U/L Alkaline Phosphatase (38-126) U/L Troponin I (0.000-0.034) ng/mL NT-Pro-B Natriuret Pep 707 pg/mL Total Protein (6.3-8.2) g/dL Albumin (3.5-5.0) g/dL - EKG Data -: EKG Interpreted by Me (EKG is A. fib 63 QRS 156 QTC 499) - Radiology Data Radiology results: report reviewed (Chest x-ray is negative for acute disease), image reviewed Disposition Clinical Impression: Congestive heart failure, Peripheral edema, Cellulitis of right leg Disposition: ADMITTED IP TO THIS HOSP Condition: Fair Is patient prescribed a controlled substance at d/c from ED?: No Referrals: [facility],Clinic [Primary Care Provider] - 1-2 days
[2019-09-25 18:59] LABS: Basophils % (A) 0 %; Eosinophils # (A) 0.2 k/uL (0-0.7); Eosinophils % (A) 2 %; HCT 33.2 % (39.0-53.0); HGB 11.7 gm/dL (13.0-17.5); Lymphocytes # (A) 0.8 k/uL (1.0-4.8); Lymphocytes % (A) 12 %; MCHC 35.2 g/dL (31.0-37.0); MCV 99.5 fL (80.0-100.0); Mean Platelet Volume 8.2; Monocytes # (A) 0.6 k/uL (0-1.0); Monocytes % (A) 9 %; Neutrophils # (A) 5.1 k/uL (1.3-7.7); Neutrophils % (A) 74 %; Platelet Count 173 k/uL (150-450); RBC 3.34 m/uL (4.30-5.90); RDW 14.2 % (11.5-15.5)
[2019-09-25 19:14] LABS: Albumin 2.9 g/dL (3.5-5.0); Calcium 8.2 mg/dL (8.4-10.2); Magnesium 1.9 mg/dL (1.6-2.3); Phosphorus 2.9 mg/dL (2.5-4.5); Potassium 3.4 mmol/L (3.5-5.1); Total Bilirubin 1.6 mg/dL (0.2-1.3); Total Protein 5.9 g/dL (6.3-8.2)
[2019-09-25] MEDS: FUROSEMIDE 10 MG/ML 4 ML VIAL IV SCH (20:03)
--- NOTE | 2019-09-25 20:23 | XR ---
EXAMINATION TYPE: XR chest 2V DATE OF EXAM: 09/25/2019 COMPARISON: Chest x-ray September 27, 2018. CT September 02, 2019. HISTORY: Shortness of breath and CHF. TECHNIQUE: Frontal and lateral views of the chest are obtained. FINDINGS: There is chronic emphysematous change without suspicious new focal air space opacity, pleu ral effusion, or pneumothorax seen. The cardiac silhouette size is stable and within normal limits. Overlying sternal wires and mediastinal clips are redemonstrated The osseous structures remains some what demineralized.. IMPRESSION: Cardiomegaly and chronic emphysematous change without acute pulmonary process. No new pl eural effusions..
[2019-09-26] MEDS: FUROSEMIDE 10 MG/ML 4 ML VIAL IV SCH ×4 (03:39→23:36)
[2019-09-26] MEDS ORDERED: NITROGLYCERIN SL TABS 0.4 MG TAB SUBLINGUAL PRN (13:01)
--- NOTE | 2019-09-26 14:26 | P.HPIM ---
History of Present Illness This is a pleasant 70-year-old male came in with bilateral lower extremity edema has been worsening patient have significant redness particularly in the right leg. Patient has an was having pain denied any fever chills patient does have local is of temperature patient appears to have some colitis in that leg. Patient does have history of heart failure with EF of around 45-50% along with moderate concentric left ventricular hypertrophy, possible diastolic dysfunction and severe pulmonary hypertension. Patient uses 80 mg of Lasix twice a day along with metolazone. Patient denied any shortness of breath orthopnea or proximal nocturnal dyspnea patient lives at home with his . Patient doesn't have any fever or leukocytosis denied any cough. Chest x-ray did not show any pulmonary edema pneumonia Review of Systems REVIEW OF SYSTEMS: CONSTITUTIONAL: No fever, no malaise, no fatigue. HEENT: No recent visual problems or hearing problems. Denied any sore throat. CARDIOVASCULAR: No chest pain, orthopnea, PND, no palpitations, no syncope. PULMONARY: No shortness of breath, no cough, no hemoptysis. GASTROINTESTINAL: No diarrhea, no nausea, no vomiting, no abdominal pain. NEUROLOGICAL: No headaches, no weakness, no numbness. HEMATOLOGICAL: Denies any bleeding or petechiae. GENITOURINARY: Denies any burning micturition, frequency, or urgency. MUSCULOSKELETAL/RHEUMATOLOGICAL: Denies any joint pain, swelling, or any muscle pain. ENDOCRINE: Denies any polyuria or polydipsia. The rest of the 14-point review of systems is negative. Past Medical History Past Medical History: Atrial Fibrillation, Coronary Artery Disease (CAD), Cancer, Heart Failure, COPD, Hyperlipidemia, Hypertension, Myocardial Infarction ([place]), Renal Disease, Sleep Apnea/CPAP/BIPAP Additional Past Medical History / Comment(s): R lung cancer with wedge resection, severe pulmonary HTN, pt denies PERCY as documented in previous medical record, CKD stage III, anemia, pt denies BPH as documented in previous medical record, pt denies CVA/tia as documented in previous medical record, hiatal hernia, constipation/benign polyp, bradycardia. Last Myocardial Infarction Date:: 2002 History of Any Multi-Drug Resistant Organisms: None Reported Past Surgical History: Appendectomy, Coronary Bypass/CABG, Heart Catheterization, Orthopedic Surgery Additional Past Surgical History / Comment(s): 2002 CABG 3 vessel, cardiac angioplasty, R lung wedge resection, R hip closed reduction/ORIF with IT nail, EGD, colonoscopies/polypectgomies. Additional Past Anesthesia/Blood Transfusion Reaction / Comment(s): CLAUSTERPHOBIA. Pt has received blood in past without reaction. Smoking Status: Former smoker - Past Family History Father Family Medical History: Cancer Additional Family Medical History / Comment(s): of pancreatic cancer Mother Family Medical History: Diabetes Mellitus Additional Family Medical History / Comment(s): AT AGE 90 WAS IN [facility] FROM OLD AGE Brother(s) Family Medical History: Diabetes Mellitus Additional Family Medical History / Comment(s): 2 BROTHERS HAVE DIABETES Medications and Allergies Home Medications Medication Instructions Recorded Confirmed Type Tiotropium 18 Mcg/Puff [Spiriva] 1 cap INHALATION RT-DAILY 07/13/13 09/25/19 History Nitroglycerin Sl Tabs [Nitrostat] 0.4 mg SUBLINGUAL Q5M PRN 03/19/16 09/25/19 History Ferrous Sulfate [Iron] 325 mg PO TID 11/09/17 09/25/19 History Isosorbide Mononitrate [Isosorbide 30 mg PO BID 11/09/17 09/25/19 History Mononitrate ER] Simvastatin [Zocor] 20 mg PO HS 01/01/18 09/25/19 History Carvedilol [Coreg] 12.5 mg PO BID 03/22/18 09/25/19 History Furosemide [Lasix] 80 mg PO BID 03/22/18 09/25/19 History Ipratropium-Albuterol Nebulize 3 ml INHALATION RT-QID 03/22/18 09/25/19 History [Duoneb 0.5 mg-3 mg/3 ml Soln] Metolazone [Zaroxolyn] 2.5 mg PO Q48H 06/03/18 09/25/19 History Apixaban [Eliquis] 2.5 mg PO BID 09/27/18 09/25/19 History Cholecalciferol (Vitamin D3) 2,000 unit PO DAILY 03/21/19 09/25/19 History [Vitamin D3] Ascorbic Acid 25mg 250 mg PO DAILY 09/25/19 09/25/19 History Budesonide-Formot 160-4.5 Mcg 2 puff INHALATION RT-BID 09/25/19 09/25/19 History [Symbicort 160-4.5 Mcg Inhaler] Folic Acid 1 mg PO DAILY 09/25/19 09/25/19 History Allergies Allergy/AdvReac Type Severity Reaction Status Date / Time No Known Allergies Allergy Verified 09/25/19 19:54 Physical Exam Vitals: Vital Signs Temp Pulse Pulse Resp BP BP Pulse Ox 09/26/19 07:00 97.5 F L 70 18 103/55 92 L 09/26/19 02:10 67 15 115/67 97 09/26/19 01:04 97.4 F L 67 18 116/57 99 09/25/19 20:00 63 18 120/53 97 09/25/19 19:26 97.7 F 72 18 119/53 98 09/25/19 19:01 65 16 115/58 98 09/25/19 17:55 98.2 F 72 18 104/54 97 Intake and Output 09/25/19 09/26/19 09/26/19 22:59 06:59 14:59 Output Total 950 400 Balance -950 -400 Output: Urine 950 400 Other: Voiding Method Urinal # Voids 1 Weight 88.904 kg 88.904 kg PHYSICAL EXAMINATION: GENERAL: The patient is alert and oriented x3, not in any acute distress. Well developed, well nourished. HEENT: Pupils are round and equally reacting to light. EOMI. No scleral icterus. No conjunctival pallor. Normocephalic, atraumatic. No pharyngeal erythema. No thyromegaly. CARDIOVASCULAR: S1 and S2 present. No murmurs, rubs, or gallops. Does have elevated JVD PULMONARY: Chest is clear to auscultation, no wheezing or crackles. ABDOMEN: Soft, nontender, nondistended, normoactive bowel sounds. No palpable organomegaly. MUSCULOSKELETAL: No joint swelling or deformity. EXTREMITIES: No cyanosis, clubbing, as have 3+ pitting pedal edema extending up to the midthigh area NEUROLOGICAL: Gross neurological examination did not reveal any focal deficits. 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 Results CBC & Chem 7: 09/25/19 18:38 09/25/19 18:38 Labs: Abnormal Lab Results - Last 24 Hours (Table) 09/25/19 09/25/19 Range/Units 18:38 18:38 RBC 3.34 L (4.30-5.90) m/uL Hgb 11.7 L (13.0-17.5) gm/dL Hct 33.2 L (39.0-53.0) % Lymphocytes # 0.8 L (1.0-4.8) k/uL Potassium 3.4 L (3.5-5.1) mmol/L BUN 21 H (9-20) mg/dL Glucose 109 H (74-99) mg/dL Calcium 8.2 L (8.4-10.2) mg/dL Total Bilirubin 1.6 H (0.2-1.3) mg/dL Total Protein 5.9 L (6.3-8.2) g/dL Albumin 2.9 L (3.5-5.0) g/dL Thrombosis Risk Factor Assmnt - Choose All That Apply Any of the Below Risk Factors Present?: Yes Each Factor Represents 1 point: Acute LA, History of:, Swollen legs (current) Other Risk Factors: Yes Each Risk Factor Represents 2 Points: Malignancy Each Risk Factor Represents 3 Points: Age 75 years or older Other congenital or acquired thrombophilia - If yes, enter type in comment: No Thrombosis Risk Factor Assessment Total Risk Factor Score: 8 Thrombosis Risk Factor Assessment Level: High Risk Assessment and Plan Plan: -Excessive bilateral lower limb edema: Patient to possibly has heart failure exacerbation predominantly right-sided heart failure there may be some diastolic dysfunction as well as systolic dysfunction with acute exacerbation patient was started on Lasix 80 mg 3 times daily which will be continued. Continue to monitor his kidney function and electrolytes closely cardiology was consulted. -Cellulitis of the right lower extremity with some small ulcerations: Patient will be started on ceftezole and infectious disease will be consulted -COPD without any acute exacerbation -Hyperlipidemia -Could not disease -Hypertension -Sleep apnea uses CPAP machine at home -Atrial fibrillation presently rate controlled on Eliquis which will be continue d
[2019-09-26] MEDS: IPRATROPIUM-ALBUTEROL 3 ML NEB INHALATION SCH ×2 (15:44→20:48)
[2019-09-26] MEDS: CARVEDILOL 12.5 MG TAB PO SCH (16:36)
[2019-09-26] MEDS: SYMBICORT 160-4.5 MCG INHALER INHALATION SCH (20:48)
[2019-09-26] MEDS ORDERED: ATORVASTATIN 10 MG TAB PO SCH (21:00)
[2019-09-26] MEDS: ISOSORBIDE MONONITRATE ER 30 MG TAB.ER.24H PO SCH (21:29)
[2019-09-26] MEDS: APIXABAN 2.5 MG TABLET PO SCH (21:30)
[2019-09-26 23:01] VITALS: RESP 18
[2019-09-27 07:46] LABS: Calcium 8.5 mg/dL (8.4-10.2)
[2019-09-27 07:55] LABS: Potassium 2.6 mmol/L (3.5-5.1)
[2019-09-27] MEDS ORDERED: NON FORMULARY DRUG (Tiotropium 18 Mcg/Puff 1 CAP) INHALATION SCH (08:00)
[2019-09-27] MEDS ORDERED: Potassium Replacement Protocol 1 EACH MISC MISCELLANE PRN ×2 (08:07→08:09)
[2019-09-27] MEDS ORDERED: POTASSIUM CHLORIDE ER 20 MEQ TAB.ER PO STA ×2 (08:10→15:18)
[2019-09-27] MEDS: ISOSORBIDE MONONITRATE ER 30 MG TAB.ER.24H PO SCH (08:34)
[2019-09-27] MEDS: APIXABAN 2.5 MG TABLET PO SCH (08:34)
[2019-09-27] MEDS: CARVEDILOL 12.5 MG TAB PO SCH (08:34)
[2019-09-27] MEDS ORDERED: FOLIC ACID 1 MG TAB PO SCH (09:00)
[2019-09-27] MEDS: IPRATROPIUM-ALBUTEROL 3 ML NEB INHALATION SCH ×3 (09:00→15:31)
[2019-09-27] MEDS: SYMBICORT 160-4.5 MCG INHALER INHALATION SCH (09:00)
--- NOTE | 2019-09-27 10:07 | P.CONS ---
History of Present Illness - Reason for Consult Consult date: 09/26/19 right leg cellulitis Requesting physician: Anne Marie Powers - Chief Complaint swelling and redness to legs x few days - History of Present Illness Patient is a 78-year-old male presenting to the ER last evening with chief complaints of increasing bilateral lower extremity swelling which has been worse on the right than on the left leg patient symptom has been going on for few days before presentation to the hospital patient complaining of more redness to the right leg and is also complaining of pain to the leg to be more of a dull aching at times sharp about 5 out of 10 no radiation patient currently do not have any skin breakdown or any drainage did have some chills but denies high- grade fever with this symptom the patient was evaluated by the ER physician on arrival to the ER the patient has been afebrile patient did have a normal white count: scott PCR was negative blood cultures so far negative he did have a chest x-ray which shows cardiomegaly with chronic emphysematous changes without acute pulmonary process patient has been diagnosed with right lower extremity cellulitis patient received a dose of Rocephin in the ER subsequently biotic has been switched over to cefepime cefazolin 2 g every 8 hourly infectious he was consulted for further management of antibiotic therapy. Review of Systems Positive point has been mentioned HPI rest of the systems negative Past Medical History Past Medical History: Atrial Fibrillation, Coronary Artery Disease (CAD), Cancer, Heart Failure, COPD, Hyperlipidemia, Hypertension, Myocardial Infarction ([place]), Renal Disease, Sleep Apnea/CPAP/BIPAP Additional Past Medical History / Comment(s): R lung cancer with wedge resection, severe pulmonary HTN, pt denies PERCY as documented in previous medical record, CKD stage III, anemia, pt denies BPH as documented in previous medical record, pt denies CVA/tia as documented in previous medical record, hiatal hernia, constipation/benign polyp, bradycardia. Last Myocardial Infarction Date:: 2002 History of Any Multi-Drug Resistant Organisms: None Reported Past Surgical History: Appendectomy, Coronary Bypass/CABG, Heart Catheterization, Orthopedic Surgery Additional Past Surgical History / Comment(s): 2002 CABG 3 vessel, cardiac angioplasty, R lung wedge resection, R hip closed reduction/ORIF with IT nail, EGD, colonoscopies/polypectgomies. Additional Past Anesthesia/Blood Transfusion Reaction / Comm: CLAUSTERPHOBIA. Pt has received blood in past without reaction. Smoking Status: Former smoker - Past Family History Father Family Medical History: Cancer Additional Family Medical History / Comment(s): of pancreatic cancer Mother Family Medical History: Diabetes Mellitus Additional Family Medical History / Comment(s): AT AGE 90 [facility] OLD AGE Brother(s) Family Medical History: Diabetes Mellitus Additional Family Medical History / Comment(s): 2 BROTHERS HAVE DIABETES Medications and Allergies Home Medications Medication Instructions Recorded Confirmed Type Tiotropium 18 Mcg/Puff [Spiriva] 1 cap INHALATION RT-DAILY 07/13/13 09/25/19 History Nitroglycerin Sl Tabs [Nitrostat] 0.4 mg SUBLINGUAL Q5M PRN 03/19/16 09/25/19 History Ferrous Sulfate [Iron] 325 mg PO TID 11/09/17 09/25/19 History Isosorbide Mononitrate [Isosorbide 30 mg PO BID 11/09/17 09/25/19 History Mononitrate ER] Simvastatin [Zocor] 20 mg PO HS 01/01/18 09/25/19 History Carvedilol [Coreg] 12.5 mg PO BID 03/22/18 09/25/19 History Furosemide [Lasix] 80 mg PO BID 03/22/18 09/25/19 History Ipratropium-Albuterol Nebulize 3 ml INHALATION RT-QID 03/22/18 09/25/19 History [Duoneb 0.5 mg-3 mg/3 ml Soln] Metolazone [Zaroxolyn] 2.5 mg PO Q48H 06/03/18 09/25/19 History Apixaban [Eliquis] 2.5 mg PO BID 09/27/18 09/25/19 History Cholecalciferol (Vitamin D3) 2,000 unit PO DAILY 03/21/19 09/25/19 History [Vitamin D3] Ascorbic Acid 25mg 250 mg PO DAILY 09/25/19 09/25/19 History Budesonide-Formot 160-4.5 Mcg 2 puff INHALATION RT-BID 09/25/19 09/25/19 History [Symbicort 160-4.5 Mcg Inhaler] Folic Acid 1 mg PO DAILY 09/25/19 09/25/19 History Allergies Allergy/AdvReac Type Severity Reaction Status Date / Time No Known Allergies Allergy Verified 09/25/19 19:54 Physical Exam Vitals: Vital Signs Temp Pulse Pulse Resp BP BP Pulse Ox 09/26/19 07:00 97.5 F L 70 18 103/55 92 L 09/26/19 02:10 67 15 115/67 97 09/26/19 01:04 97.4 F L 67 18 116/57 99 09/25/19 20:00 63 18 120/53 97 09/25/19 19:26 97.7 F 72 18 119/53 98 09/25/19 19:01 65 16 115/58 98 09/25/19 17:55 98.2 F 72 18 104/54 97 Intake and Output 09/25/19 09/26/19 09/26/19 22:59 06:59 14:59 Output Total 950 400 Balance -950 -400 Output: Urine 950 400 Other: Voiding Method Urinal # Voids 1 Weight 88.904 kg 88.904 kg GENERAL DESCRIPTION: Elderly male lying in bed, no distress. No tachypnea or accessory muscle of respiration use. HEENT: Shows Pallor , no scleral icterus. Oral mucous membrane is dry. No pharyngeal erythema or thrush NECK: Trachea central, no thyromegaly. LUNGS: Unlabored breathing. Clear to auscultation anteriorly. No wheeze or crackle. HEART: S1, S2, regular rate and rhythm. No loud murmur ABDOMEN: Soft, no tenderness , guarding or rigidity, no organomegaly EXTREMITIES: Diffuse swelling bilateral extremity right greater than left with erythema slightly warm to touch no drainage. SKIN: No rash, no masses palpable. NEUROLOGICAL: The patient is awake, alert, oriented x3, mood and affect normal. Results CBC & Chem 7: 09/25/19 18:38 09/27/19 06:34 Labs: Abnormal Lab Results - Last 24 Hours (Table) 09/25/19 09/25/19 Range/Units 18:38 18:38 RBC 3.34 L (4.30-5.90) m/uL Hgb 11.7 L (13.0-17.5) gm/dL Hct 33.2 L (39.0-53.0) % Lymphocytes # 0.8 L (1.0-4.8) k/uL Potassium 3.4 L (3.5-5.1) mmol/L BUN 21 H (9-20) mg/dL Glucose 109 H (74-99) mg/dL Calcium 8.2 L (8.4-10.2) mg/dL Total Bilirubin 1.6 H (0.2-1.3) mg/dL Total Protein 5.9 L (6.3-8.2) g/dL Albumin 2.9 L (3.5-5.0) g/dL Assessment and Plan Assessment: -patient with acute right lower extremity cellulitis in this patient did have diffuse swelling to both lower extremity with more swelling to the right leg likely representing streptococcal cellulitis clinically doubt MRSA or gram- negative infection (1) Cellulitis of right leg Current Visit: Yes Status: Acute Code(s): L03.115 - CELLULITIS OF RIGHT LOWER LIMB SNOMED Code(s): 093408195 Plan: 1-cefazolin 2 g every 8 hour 2-light Collins wrap to the leg from just above the toe to below the knee We will follow on clinical condition and cultures to further adjust medication if needed Thank you for this consultation will follow this patient along with you
[2019-09-27] MEDS: POTASSIUM CHLORIDE ER 20 MEQ TAB.ER PO SCH ×3 (10:14→15:17)
[2019-09-27] MEDS: FUROSEMIDE 10 MG/ML 4 ML VIAL IV SCH (10:14)
[2019-09-27 10:42] VITALS: BMI 25.2
[2019-09-27 14:36] VITALS: BP 109/64; TEMP 97.5
--- NOTE | 2019-09-27 15:21 | PN ---
PROGRESS NOTE DATE OF SERVICE: 09/27/2019 REASON FOR FOLLOWUP: Right lower extremity cellulitis. INTERVAL HISTORY: The patient is currently afebrile. The patient is breathing comfortably. The patient denies having any chest pain or shortness of breath or cough. Overall swelling and redness of the right leg have decreased. PHYSICAL EXAMINATION: Blood pressure 108/57, pulse of 77, temperature 98.4. He is 97% on room air. General description is an elderly male lying in bed in no distress. RESPIRATORY SYSTEM: Unlabored breathing. Clear to auscultation anteriorly. HEART: S1, S2. Regular rate and rhythm. ABDOMEN: Soft. No tenderness. Right leg swelling and redness have slightly decreased. LABS: White count 7.0. Creatinine is 1.11. DIAGNOSTIC IMPRESSION AND PLAN: Patient with acute right lower extremity cellulitis with diffuse tenderness. Patient is clinically responding to the cefazolin; to continue along with Collins wrap, finishing therapy with oral Keflex. Continue with supportive care. MMODL / IJN: [id number] /
--- NOTE | 2019-09-27 15:23 | P.DS ---
Providers Date of admission: 09/27/19 10:14 Attending physician: Beau Gaston Consults: 09/26/19 14:22 Consult Physician Routine Consulting Provider: Fior Olivo Consult Reason/Comments: Cellultis Do you want consulting provider notified?: Yes Primary care physician: [facility] Course: 70-year-old male came in with bilateral lower extremity edema has been worsening patient have significant redness particularly in the right leg. Patient has an was having pain denied any fever chills patient does have local is of temperature patient appears to have some colitis in that leg. Patient does have history of heart failure with EF of around 45-50% along with moderate concentric left ventricular hypertrophy, possible diastolic dysfunction and severe pulmonary hypertension. Patient uses 80 mg of Lasix twice a day along with metolazone. Patient denied any shortness of breath orthopnea or proximal nocturnal dyspnea patient lives at home with his . Patient doesn't have any fever or leukocytosis denied any cough. Chest x-ray did not show any pulmonary edema pneumonia. 09/27/2019 Patient swelling since pain improved. Patient's allied as improved as well patient will be discharged on Keflex today. She and potassium is extremely low which will be replaced before his discharge and patient will be given discussion for potassium as well. PHYSICAL EXAMINATION: GENERAL: The patient is alert and oriented x3, not in any acute distress. Well developed, well nourished. HEENT: Pupils are round and equally reacting to light. EOMI. No scleral icterus. No conjunctival pallor. Normocephalic, atraumatic. No pharyngeal erythema. No thyromegaly. CARDIOVASCULAR: S1 and S2 present. No murmurs, rubs, or gallops. Does have elevated JVD PULMONARY: Chest is clear to auscultation, no wheezing or crackles. ABDOMEN: Soft, nontender, nondistended, normoactive bowel sounds. No palpable organomegaly. MUSCULOSKELETAL: No joint swelling or deformity. EXTREMITIES: No cyanosis, clubbing, as have 3+ pitting pedal edema extending up to the midthigh area NEUROLOGICAL: Gross neurological examination did not reveal any focal deficits. 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 Assessment and Plan Plan: -Bilateral lower extremity edema: Patient to possibly has heart failure exacerbation predominantly right-sided heart failure there may be some diastolic dysfunction as well as systolic dysfunction with acute exacerbation improved now. Patient kidney for she is bit worse -Cellulitis of the right lower extremity with some small ulcerations: Patient will need wound care patient will be discharged on Keflex for 7 days -COPD without any acute exacerbation -Hyperlipidemia -Could not disease -Hypertension -Sleep apnea uses CPAP machine at home -Atrial fibrillation presently rate controlled on Eliquis which will be continued Patient Condition at Discharge: Fair Plan - Discharge Summary Discharge Rx Participant: No New Discharge Prescriptions: New Potassium Chloride ER [K-Dur 20] 20 meq PO BID #60 tab Cephalexin [Keflex] 500 mg PO Q8HR 7 Days #21 cap Continue Tiotropium 18 Mcg/Puff [Spiriva] 1 cap INHALATION RT-DAILY Nitroglycerin Sl Tabs [Nitrostat] 0.4 mg SUBLINGUAL Q5M PRN PRN Reason: Chest Pain Ferrous Sulfate [Iron] 325 mg PO TID Isosorbide Mononitrate [Isosorbide Mononitrate ER] 30 mg PO BID Simvastatin [Zocor] 20 mg PO HS Ipratropium-Albuterol Nebulize [Duoneb 0.5 mg-3 mg/3 ml Soln] 3 ml INHALATION RT-QID Furosemide [Lasix] 80 mg PO BID Carvedilol [Coreg] 12.5 mg PO BID Metolazone [Zaroxolyn] 2.5 mg PO Q48H Apixaban [Eliquis] 2.5 mg PO BID Cholecalciferol (Vitamin D3) [Vitamin D3] 2,000 unit PO DAILY Budesonide-Formot 160-4.5 Mcg [Symbicort 160-4.5 Mcg Inhaler] 2 puff I NHALATION RT-BID Ascorbic Acid 25mg 250 mg PO DAILY Folic Acid 1 mg PO DAILY Discharge Medication List Tiotropium 18 Mcg/Puff [Spiriva] 1 cap INHALATION RT-DAILY 07/13/13 [History] Nitroglycerin Sl Tabs [Nitrostat] 0.4 mg SUBLINGUAL Q5M PRN 03/19/16 [History] Ferrous Sulfate [Iron] 325 mg PO TID 11/09/17 [History] Isosorbide Mononitrate [Isosorbide Mononitrate ER] 30 mg PO BID 11/09/17 [History] Simvastatin [Zocor] 20 mg PO HS 01/01/18 [History] Carvedilol [Coreg] 12.5 mg PO BID 03/22/18 [History] Furosemide [Lasix] 80 mg PO BID 03/22/18 [History] Ipratropium-Albuterol Nebulize [Duoneb 0.5 mg-3 mg/3 ml Soln] 3 ml INHALATION RT-QID 03/22/18 [History] Metolazone [Zaroxolyn] 2.5 mg PO Q48H 06/03/18 [History] Apixaban [Eliquis] 2.5 mg PO BID 09/27/18 [History] Cholecalciferol (Vitamin D3) [Vitamin D3] 2,000 unit PO DAILY 03/21/19 [History] Ascorbic Acid 25mg 250 mg PO DAILY 09/25/19 [History] Budesonide-Formot 160-4.5 Mcg [Symbicort 160-4.5 Mcg Inhaler] 2 puff INHALATION RT-BID 09/25/19 [History] Folic Acid 1 mg PO DAILY 09/25/19 [History] Cephalexin [Keflex] 500 mg PO Q8HR 7 Days #21 cap 09/27/19 [Rx] Potassium Chloride ER [K-Dur 20] 20 meq PO BID #60 tab 09/27/19 [Rx] Follow up Appointment(s)/Referral(s): Fior Olivo MD [STAFF PHYSICIAN] - 1 Week [facility],Clinic [Primary Care Provider] - 3 Days Ambulatory/Diagnostic Orders: Basic Metabolic Panel [LAB.AMB] Time Frame: 3 Days, Location: None Selected Patient Instructions/Handouts: Heart Failure (DC), Cellulitis (DC) Discharge Disposition: HOME WITH HOME HEALTH SERVICES
[2019-09-27] MEDS ORDERED: FUROSEMIDE 40 MG TAB PO SCH (16:00)
[2019-09-27 17:17] VITALS: PULSE 72
[2019-09-28] MEDS ORDERED: METOLAZONE 2.5 MG TAB PO SCH (08:30)
--- NOTE | 2019-09-28 10:49 | CDI ---
Documentation Clarification Form Date: 09/28/19 From: Lisa Parada CCS Phone: If you have a question about this query, please contact Di Haddad, [place] at [phone] between 8am and 5pm. Admit Date: 09/27/19 Discharge Date:09/27/19 Patient Name: Khanh Mahmood Visit Number: [id number] ATTENTION: The Clinical Documentation Specialists (CDI) and [facility] Coding Staff appreciate your assistance in clarifying documentation. Please respond to the clarification below the line at the bottom and electronically sign. The CDI & [facility] Coding staff will review the response and follow-up if needed. Please note: Queries are made part of the Legal Health Record. If you have any questions, please contact the author of this message via ITS. Dear Dr. Powers, Atrial Fibrillation is documented in the ED, H&P, Consult, DS. History/Risk Factors: CAD, CHF, HTN, CKD Clinical Indicators: AFIB EKG/telemetry: AFIB, RBBB Treatment: Eliquis 2.5 mg PO BID In your professional opinion, can you please clarify the type of Atrial Fibrillation, if known? Chronic/Permanent Paroxysmal Persistent Other, please specify Unable to determine Unable to determine MTDD
== END 2019-09-27 16:47 | disposition home health service (06) | DRG 291 ==
LOC: EC 17:48 → 4SSUR 19:43 → OBSVTOIN 09-27 10:14
PROVIDERS: ADMIT Hospitalist; ATTEND Hospitalist
DX: I13.0 Hypertensive heart and chronic kidney disease with heart failure and stage 1 through stage 4 chronic kidney disease, or unspecified chronic kidney disease (principal); I50.43 Acute on chronic combined systolic (congestive) and diastolic (congestive) heart failure; L03.115 Cellulitis of right lower limb; L97.919 Non-pressure chronic ulcer of unspecified part of right lower leg with unspecified severity; Z11.59 Encounter for screening for other viral diseases; I27.29 Other secondary pulmonary hypertension; D63.1 Anemia in chronic kidney disease; N18.3 Chronic kidney disease, stage 3 (moderate); Z79.01 Long term (current) use of anticoagulants; Z95.1 Presence of aortocoronary bypass graft; J44.9 Chronic obstructive pulmonary disease, unspecified; I48.91 Unspecified atrial fibrillation; I25.10 Atherosclerotic heart disease of native coronary artery without angina pectoris; G47.30 Sleep apnea, unspecified; E78.5 Hyperlipidemia, unspecified; K44.9 Diaphragmatic hernia without obstruction or gangrene; I87.2 Venous insufficiency (chronic) (peripheral); I25.2 Old myocardial infarction; Z71.3 Dietary counseling and surveillance; Z79.51 Long term (current) use of inhaled steroids; Z79.899 Other long term (current) drug therapy; Z86.73 Personal history of transient ischemic attack (TIA), and cerebral infarction without residual deficits; Z86.010 Personal history of colon polyps; Z90.49 Acquired absence of other specified parts of digestive tract; Z87.891 Personal history of nicotine dependence; Z98.890 Other specified postprocedural states; Z85.118 Personal history of other malignant neoplasm of bronchus and lung; Z90.2 Acquired absence of lung [part of]; Z80.0 Family history of malignant neoplasm of digestive organs; Z83.3 Family history of diabetes mellitus
CPT/HCPCS: 36415; 71046; 80048; 80053; 83735; 83880; 84100; 84132; 84484; 85025; 87040; 93005; 94640; 96365; 96366; 96375; 96376; 99285

== ENCOUNTER 2019-12-06 08:31 | Day surgery (SDC) | payer MEDICARE, OTHER ==
[~2019-12-06 08:31] MED LIST: DEXAMETHASONE SOD PHOSPHATE 10 MG/ML 1 ML VIAL IV ONE; LACTATED RINGERS 1,000 ML IV SCH; MOXIFLOXACIN HCL 0.5% DROPS 3 ML BTL OP ONE; ONDANSETRON 4 MG/2 ML VIAL IVP ONE; TETRACAINE 0.5% OPHTH (PF) DROPS 4 ML BTL OP ONE; TIMOLOL 0.5% OPHTH DROPS 5 ML BTL OP ONE; fentaNYL (PF) 50 MCG/ML 2 ML AMP IV PRN; fentaNYL (PF) 50 MCG/ML 2 ML AMP IVP PRN
[2019-12-06 09:03] VITALS: RESP 16; TEMP 97.5
[2019-12-06] MEDS: CYCLOPENTOLATE 1% OPHTH SOLN 2 ML BTL OP ONE ×3 (09:07→09:23)
[2019-12-06] MEDS: PHENYLEPHRINE 2.5% OPHTH DRP 2ML OP NR ×3 (09:10→09:26)
[2019-12-06] MEDS ORDERED: LIDOCAINE 1% (10MG/ML) FOR IV START INTRADERMA ONE (09:19)
[2019-12-06] MEDS ORDERED: IV FLUID CONTINUATION 1,000 ML IV ONE (09:36)
[2019-12-06] MEDS ORDERED: EPINEPHrine (PF) 0.3 ML in BALANCED SALT IRRIG SOLN COMB2 500 ML IRRIGATION ONE (09:40)
[2019-12-06] MEDS ORDERED: LIDOCAINE 1% (PF) 10MG/ML VIAL SQ ONE (09:59)
[2019-12-06] MEDS ORDERED: DUOVISC KIT (GREEN BOX) INTRAOCULA ONE (09:59)
[2019-12-06] MEDS ORDERED: BALANCED SALT IRRIG SOLN COMB2 15 ML IRRIG.SOLN IRRIGATION ONE (09:59)
--- NOTE | 2019-12-06 10:04 | P.OP ---
Date of Procedure: 12/06/19 Preoperative Diagnosis: NS & cs Postoperative Diagnosis: same Procedure(s) Performed: PIOL OS Implants: MX60 24.00 Anesthesia: MAC Surgeon: Charanjit Hernández Pathology: none sent Condition: stable Disposition: same day Indications for Procedure: blurry vision Operative Findings: No complications
[2019-12-06 10:33] VITALS: BP 116/63; PULSE 69
--- NOTE | 2019-12-07 06:33 | OP ---
OPERATIVE REPORT DATE OF SERVICE: 12/06/2019 PREOPERATIVE DIAGNOSIS: Nuclear sclerosis and cortical sclerosis. POSTOPERATIVE DIAGNOSIS: Nuclear sclerosis and cortical sclerosis. OPERATION: Phacoemulsification of cataract and Bausch and Lomb implant of the left eye. NARRATIVE: After obtaining the appropriate consent, the patient was brought to the operating room. There the patient was placed under cardiac monitoring, prepped and draped in the usual sterile manner. The patient was approached from the left temporal side. The mm Yin ring inked in gentian davy was placed centrally on the cornea. At the 11 o'clock position, a 1.1 mm keratome was used to create a paracentesis port. Through this opening, 1% Xylocaine MPF 50/50 mix with balanced salt solution was injected into the anterior chamber. This was followed by stabilization of the anterior chamber with Duovisc viscoelastic. At the 9 o'clock position, a 2.75 mm amanda keratome was used to create a self-scaling corneal flap incision in a Langerman fashion. Through this opening, a cystotome was introduced to begin a continuous tear capsulorrhexis which was completed using the Utrata forceps. Care was taken to ensure that the capsulorrhexis was at least the size of the oriana on the anterior cornea. Hydrodissection and hydrodelineation of the lens was accomplished with balanced salt solution. Phacoemulsification of the lens utilizing phaco chop was accomplished in 21.12 Seconds at 19% power. Addition Xylocaine MPF was instilled into the anterior chamber. This was followed by removal of the remaining cortex under irrigation and aspiration along with careful polishing of the posterior capsule in a capsule vacuum mode. Additional Duovisc viscoelastic was then used to stabilize the capsular bag, and the Bausch and Lomb [id number] 24.0 diopters intraocular lens was injected into the capsular bag without difficulty. The lens was rotated 270 degrees so that the haptics resided at the 6 and 12 o'clock positions, and all remaining viscoelastic was then removed from within the capsular bag and around the anterior chamber. The eye was brought to normal intraocular pressure through the paracentesis port along with slight hydration of the incision sites. Watertight integrity was confirmed using a fluorescein strip. The patient then received 2 drops of 0.5% timolol followed by 2 drops of Vigamox and 2 drops of 1% atropine. The patient was then lightly patched and shielded in the usual manner. There was no complications from the procedure. The patient tolerated the procedure well and was returned to outpatient recovery in good condition. ARJUN / KATE: [id number] /
== END 2019-12-06 10:59 | disposition home or self-care (01) ==
LOC: OR 08:31
PROVIDERS: ATTEND Ophthalmology
DX: H25.13 Age-related nuclear cataract, bilateral (principal); H25.013 Cortical age-related cataract, bilateral; H16.143 Punctate keratitis, bilateral; H52.03 Hypermetropia, bilateral; H52.223 Regular astigmatism, bilateral; H52.4 Presbyopia; I25.10 Atherosclerotic heart disease of native coronary artery without angina pectoris; I48.91 Unspecified atrial fibrillation; M35.01 Sjogren syndrome with keratoconjunctivitis; G47.33 Obstructive sleep apnea (adult) (pediatric); J43.9 Emphysema, unspecified; Z85.118 Personal history of other malignant neoplasm of bronchus and lung; Z79.02 Long term (current) use of antithrombotics/antiplatelets; Z79.01 Long term (current) use of anticoagulants; Z79.899 Other long term (current) drug therapy; Z95.1 Presence of aortocoronary bypass graft; Z90.49 Acquired absence of other specified parts of digestive tract; I10 Essential (primary) hypertension; Z83.3 Family history of diabetes mellitus; Z82.49 Family history of ischemic heart disease and other diseases of the circulatory system; Z83.518 Family history of other specified eye disorder; Z97.3 Presence of spectacles and contact lenses
CPT/HCPCS: 66984; C1780; J0171; J2001

== ENCOUNTER 2019-12-27 08:28 | Day surgery (SDC) | payer OTHER ==
[2019-12-26 14:03] VITALS: BMI 25.3
[~2019-12-27 08:28] MED LIST changes: -DEXAMETHASONE SOD PHOSPHATE 10 MG/ML 1 ML VIAL IV ONE; +LIDOCAINE 1% (10MG/ML) FOR IV START INTRADERMA PRN; -MOXIFLOXACIN HCL 0.5% DROPS 3 ML BTL OP ONE; -ONDANSETRON 4 MG/2 ML VIAL IVP ONE; -TIMOLOL 0.5% OPHTH DROPS 5 ML BTL OP ONE; -fentaNYL (PF) 50 MCG/ML 2 ML AMP IV PRN; -fentaNYL (PF) 50 MCG/ML 2 ML AMP IVP PRN
[2019-12-27] MEDS: CYCLOPENTOLATE 1% OPHTH SOLN 2 ML BTL OP ONE ×3 (09:39→10:00)
[2019-12-27] MEDS: PHENYLEPHRINE 2.5% OPHTH DRP 2ML OP NR ×3 (09:47→10:06)
[2019-12-27 10:15] VITALS: TEMP 97.2
[2019-12-27] MEDS: TIMOLOL 0.5% OPHTH DROPS 5 ML BTL OP ONE ×2 (10:20→11:08)
[2019-12-27] MEDS: MOXIFLOXACIN HCL 0.5% DROPS 3 ML BTL OP ONE ×2 (10:20→11:08)
[2019-12-27] MEDS ORDERED: HYALURONATE SODIUM INTRAOCULAR 1 EACH SYRINGE (12MG/ML) INTRAOCULA ONE ×2 (10:20→11:07)
[2019-12-27] MEDS ORDERED: BALANCED SALT IRRIG SOLN COMB2 15 ML IRRIG.SOLN IRRIGATION ONE ×2 (10:20→11:07)
[2019-12-27] MEDS ORDERED: LIDOCAINE 1% (PF) 10MG/ML VIAL MISCELLANE ONE ×2 (10:20→11:08)
[2019-12-27] MEDS ORDERED: MIDAZOLAM 2 MG/2 ML VIAL ONE (10:41)
[2019-12-27] MEDS ORDERED: fentaNYL (PF) 50 MCG/ML 2 ML AMP ONE (10:41)
[2019-12-27] MEDS ORDERED: DUOVISC KIT (GREEN BOX) INTRAOCULA ONE ×2 (10:42→11:08)
[2019-12-27] MEDS ORDERED: EPINEPHrine (PF) 0.3 ML in BALANCED SALT IRRIG SOLN COMB2 500 ML IRRIGATION ONE (11:06)
--- NOTE | 2019-12-27 11:16 | P.OP ---
Date of Procedure: 12/27/19 Preoperative Diagnosis: NS Postoperative Diagnosis: same Procedure(s) Performed: PIOL, OD Implants: MC60 24.00 Anesthesia: MAC Surgeon: Charanjit Hernández Pathology: none sent Condition: stable Disposition: same day Indications for Procedure: blurry vision Operative Findings: no complications
[2019-12-27 11:35] VITALS: BP 144/63; PULSE 62; RESP 18
--- NOTE | 2019-12-27 17:32 | OP ---
OPERATIVE REPORT DATE OF SURGERY: 12/27/2019 PROCEDURES: Phacoemulsification of cataract and intraocular lens implant of the right eye. PREOPERATIVE DIAGNOSIS: Nuclear sclerosis and cortical sclerosis. ESTIMATED BLOOD LOSS: Zero. SPECIMEN TAKEN: None. NARRATIVE: After obtaining the appropriate consent, the patient was brought to the Operating Room where the patient was placed under cardiac monitoring and prepped and draped in the usual sterile manner. At the 11 o'clock position a 15 degree super sharp blade was used to create a paracentesis followed by instillation of 1% Xylocaine MPF 50:50 mix with BSS into the anterior chamber. This was followed by Duovisc to stabilize the anterior chamber. At the 9 o'clock position a self-sealing corneal flap incision was created using 2.8 mm amanda keratome. A cystotome was used to initiate a continuous tear capsulorrhexis which was completed with the Utrata forceps. A Binkhorst cannula was used to hydrodissect the lens nucleus followed by hydrodelineation. Phacoemulsification of the lens was performed utilizing phacochop in 19.87 seconds at 15% power. The remaining cortical material was removed using the irrigation aspiration mode followed by additional 1% Xylocaine MPF into the anterior chamber followed by viscoelastic to stabilize the capsular bag. A Bausch and Lomb MX 60 E 24.0 diopters posterior chamber lens was placed into the capsular bag without difficulty. The remaining viscoelastic material was removed from the anterior chamber with the irrigation/aspiration. Balanced salt solution was used to normalize the intraocular pressure. The incision was checked for watertight integrity. The patient then received two drops of 0.5% timolol followed by two drops Vigamox, was lightly patched and shielded in the usual manner. There were no complications from the procedure. The patient tolerated the procedure well and was returned to recovery in good condition. MMODL / IJN: [id number] /
== END 2019-12-27 12:11 | disposition home or self-care (01) ==
LOC: OR 08:28
PROVIDERS: ATTEND Ophthalmology
DX: H25.11 Age-related nuclear cataract, right eye (principal); H25.011 Cortical age-related cataract, right eye; Z98.42 Cataract extraction status, left eye; Z96.1 Presence of intraocular lens; M35.01 Sjogren syndrome with keratoconjunctivitis; H16.143 Punctate keratitis, bilateral; H52.03 Hypermetropia, bilateral; H52.4 Presbyopia; H52.223 Regular astigmatism, bilateral; I11.0 Hypertensive heart disease with heart failure; I50.9 Heart failure, unspecified; I48.91 Unspecified atrial fibrillation; I25.10 Atherosclerotic heart disease of native coronary artery without angina pectoris; J43.9 Emphysema, unspecified; Z79.01 Long term (current) use of anticoagulants; Z79.899 Other long term (current) drug therapy; Z97.3 Presence of spectacles and contact lenses; Z83.3 Family history of diabetes mellitus; Z82.49 Family history of ischemic heart disease and other diseases of the circulatory system; Z83.518 Family history of other specified eye disorder
CPT/HCPCS: 66984; C1780; J2250; J0171; J3010; J2001

== ENCOUNTER 2020-02-09 10:10 | Inpatient (IN) | payer OTHER, MEDICARE ==
[2020-02-09] MEDS ORDERED: MORPHINE SULFATE 4 MG/ML SYRINGE IVP STA (11:19)
[2020-02-09] MEDS ORDERED: PIPERACILLIN-TAZOBACTAM 3.375 GM in SODIUM CHLORIDE 0.9% 100 ML IVPB STA (11:19)
--- NOTE | 2020-02-09 11:24 | ED ---
Abdominal Pain HPI - General Chief Complaint: Abdominal Pain Stated Complaint: Pain in rectum Time Seen by Provider: 02/09/20 10:33 Source: patient, RN notes reviewed, old records reviewed Mode of arrival: wheelchair Limitations: physical limitation - History of Present Illness Initial Comments: This patient's a 79-year-old male who presents emergency department today after being dropped off by and daughter. He complains of pain in his rectum and buttocks. Patient is a general poor historian and I did contact patient's son. Patient reportedly has some visiting home nurses who been seeing him for multiple reasons. His son reports that he seems to be extremely difficult to motivated to get out of his chair at home and also states that he's been taking laxatives and sitting in his stool in his chair. Patient reports that he had a bowel movement today. Patient has a history of CHF. Reportedly Patient has been quite mean and aggressive towards his whom dropped him off to ER and is not available for discussion. - Related Data Home Medications Medication Instructions Recorded Confirmed Tiotropium 18 Mcg/Puff [Spiriva] 1 cap INHALATION RT-DAILY 07/13/13 02/09/20 Nitroglycerin Sl Tabs [Nitrostat] 0.4 mg SUBLINGUAL Q5M PRN 03/19/16 02/09/20 Ferrous Sulfate [Iron] 325 mg PO TID 11/09/17 02/09/20 Isosorbide Mononitrate [Isosorbide 30 mg PO BID 11/09/17 02/09/20 Mononitrate ER] Simvastatin [Zocor] 20 mg PO HS 01/01/18 02/09/20 Carvedilol [Coreg] 12.5 mg PO BID 03/22/18 02/09/20 Furosemide [Lasix] 80 mg PO BID 03/22/18 02/09/20 Ipratropium-Albuterol Nebulize 3 ml INHALATION RT-QID PRN 03/22/18 02/09/20 [Duoneb 0.5 mg-3 mg/3 ml Soln] metOLazone [Zaroxolyn] 2.5 mg PO Q48H 06/03/18 02/09/20 Apixaban [Eliquis] 2.5 mg PO BID 09/27/18 02/09/20 Budesonide-Formot 160-4.5 Mcg 2 puff INHALATION RT-BID 09/25/19 02/09/20 [Symbicort 160-4.5 Mcg Inhaler] Folic Acid 1 mg PO DAILY 09/25/19 02/09/20 Ascorbic Acid [Vitamin C] 250 mg PO DAILY 02/09/20 02/09/20 Multivitamins, Thera [Multivitamin 1 tab PO DAILY 02/09/20 02/09/20 (formulary)] Potassium Chloride ER [K-Dur 20] 20 meq PO DAILY 02/09/20 02/09/20 cycloSPORINE 0.05% OPHTH SOLN 1 applicator BOTH EYES Q12H 02/09/20 02/09/20 [Restasis] Allergies Allergy/AdvReac Type Severity Reaction Status Date / Time No Known Allergies Allergy Verified 02/09/20 11:20 Review of Systems ROS Statement: Those systems with pertinent positive or pertinent negative responses have been documented in the HPI. ROS Other: All systems not noted in ROS Statement are negative. Past Medical History Past Medical History: Atrial Fibrillation, Coronary Artery Disease (CAD), Cancer, Heart Failure, COPD, Hyperlipidemia, Hypertension, Myocardial Infarction (CA), Renal Disease Additional Past Medical History / Comment(s): R lung cancer with wedge resection-no chemo or radiation, severe pulmonary HTN, CKD stage III, anemia,hiatal hernia, constipation/benign polyp, bradycardia. Last Myocardial Infarction Date:: 2002 History of Any Multi-Drug Resistant Organisms: None Reported Past Surgical History: Appendectomy, Coronary Bypass/CABG, Heart Catheterization, Orthopedic Surgery Additional Past Surgical History / Comment(s): 2002 CABG 3 vessel, cardiac angioplasty, R lung wedge resection, R hip closed reduction/ORIF, EGD, colonoscopies/polypectgomies. Past Anesthesia/Blood Transfusion Reactions: No Reported Reaction Additional Past Anesthesia/Blood Transfusion Reaction / Comment(s): CLAUSTERPHOBIA. Pt has received blood in past without reaction. Past Psychological History: No Psychological Hx Reported Smoking Status: Former smoker - Past Family History Father Family Medical History: Cancer Additional Family Medical History / Comment(s): of pancreatic cancer Mother Family Medical History: Diabetes Mellitus Additional Family Medical History / Comment(s): AT AGE 90 WAS IN PRETTY GOOD HEALTH FROM OLD AGE Brother(s) Family Medical History: Diabetes Mellitus Additional Family Medical History / Comment(s): 2 BROTHERS HAVE DIABETES General Exam - General Exam Comments Initial Comments: 79-year-old male. Limitations: physical limitation General appearance: alert, in no apparent distress Head exam: Present: atraumatic, normocephalic, normal inspection Eye exam: Present: normal appearance, PERRL, EOMI. Absent: scleral icterus, conjunctival injection, periorbital swelling ENT exam: Present: normal exam, mucous membranes moist Neck exam: Present: normal inspection. Absent: tenderness, meningismus, lymphadenopathy Respiratory exam: Present: normal lung sounds bilaterally. Absent: respiratory distress, wheezes, rales, rhonchi, stridor Cardiovascular Exam: Present: regular rate, normal rhythm, normal heart sounds. Absent: systolic murmur, diastolic murmur, rubs, gallop, clicks GI/Abdominal exam: Present: soft Rectal exam: Present: other ( has ulcerations as described and back exam. He was covered in dried stool. ) Extremities exam: Present: normal inspection, full ROM, normal capillary refill, other (Bilateral peripheral edema). Absent: tenderness, pedal edema, joint swelling, calf tenderness Back exam: Present: normal inspection, other (Patient has a large this stage II pressure ulcer over the sacrum and coccyx. There is areas of skin breakdown leading to stage 3 ulceration.) Neurological exam: Present: alert, oriented X3, CN II-XII intact Psychiatric exam: Present: normal affect, normal mood Skin exam: Present: warm, dry, intact, normal color. Absent: rash Course Vital Signs 02/09/20 02/09/20 10:26 11:27 Temperature 97.2 F L Pulse Rate 52 L 42 L Respiratory 18 16 Rate Blood Pressure 119/49 136/49 O2 Sat by Pulse 99 96 Oximetry Medical Decision Making - Medical Decision Making 79-year-old male with multiple comorbidities including CHF since returned today with complaints of rectal pain. He has been sitting in dried stool and has evidence of a stage II and stage III decubitus ulcer. When contacting patient's son son states that he is unable to take care of himself at home and has poor motivation to get up out of the chair. Patient was cleaned and was started on IV Zosyn for the concern for secondary infection from wound. Patient labwork obtained. This time be hypokalemic. Patient was started on potassium replacement protocol. EKG did show A. fib with slow ventricular sounds heart rates of 5244 and beats per minute. Patient denies any chest pain. I discussed the case with Dr. Tirado and discuss these with Dr. she agrees to admit the Patient. I did discuss the Patient will likely need long-term rehab placement for a decubitus wound. [facility] at in the past. - Lab Data Result diagrams: 02/09/20 11:02/09/20 11: Lab Results 02/09/20 02/09/20 02/09/20 Range/Units 11: 11: 11: WBC 8.6 (3.8-10.6) k/uL RBC 4.17 L (4.30-5.90) m/uL Hgb 12.6 L (13.0-17.5) gm/dL Hct 39.9 (39.0-53.0) % MCV 95.7 (80.0-100.0) fL MCH 30.2 (25.0-35.0) pg MCHC 31.5 (31.0-37.0) g/dL RDW 15.2 (11.5-15.5) % Plt Count 211 (150-450) k/uL MPV 8.3 Neutrophils % 78 % Lymphocytes % 13 % Monocytes % 6 % Eosinophils % 1 % Basophils % 0 % Neutrophils # 6.7 (1.3-7.7) k/uL Lymphocytes # 1.1 (1.0-4.8) k/uL Monocytes # 0.5 (0-1.0) k/uL Eosinophils # 0.1 (0-0.7) k/uL Basophils # 0.0 (0-0.2) k/uL Sodium 141 (137-145) mmol/L Potassium 2.7 L* (3.5-5.1) mmol/L Chloride 105 (98-107) mmol/L Carbon Dioxide 29 (22-30) mmol/L Anion Gap 7 mmol/L BUN 19 (9-20) mg/dL Creatinine 1.08 (0.66-1.25) mg/dL Est GFR (CKD-EPI)AfAm 75 (>60 ml/min/1.73 sqM) Est GFR (CKD-EPI)NonAf 65 (>60 ml/min/1.73 sqM) Glucose 111 H (74-99) mg/dL Calcium 8.8 (8.4-10.2) mg/dL Magnesium (1.6-2.3) mg/dL Urine Color Urine Appearance (Clear) Urine pH (5.0-8.0) Ur Specific Wal[place] (1.001-1.035) Urine Protein (Negative) Urine Glucose (UA) (Negative) Urine Ketones (Negative) Urine Blood (Negative) Urine Nitrite (Negative) Urine Bilirubin (Negative) Urine Urobilinogen (<2.0) mg/dL Ur Leukocyte Esterase (Negative) Stool Occult Blood Positive (Negative) 02/09/20 02/09/20 Range/Units 11:29 11:30 WBC (3.8-10.6) k/uL RBC (4.30-5.90) m/uL Hgb (13.0-17.5) gm/dL Hct (39.0-53.0) % MCV (80.0-100.0) fL MCH (25.0-35.0) pg MCHC (31.0-37.0) g/dL RDW (11.5-15.5) % Plt Count (150-450) k/uL MPV Neutrophils % % Lymphocytes % % Monocytes % % Eosinophils % % Basophils % % Neutrophils # (1.3-7.7) k/uL Lymphocytes # (1.0-4.8) k/uL Monocytes # (0-1.0) k/uL Eosinophils # (0-0.7) k/uL Basophils # (0-0.2) k/uL Sodium (137-145) mmol/L Potassium (3.5-5.1) mmol/L Chloride (98-107) mmol/L Carbon Dioxide (22-30) mmol/L Anion Gap mmol/L BUN (9-20) mg/dL Creatinine (0.66-1.25) mg/dL Est GFR (CKD-EPI)AfAm (>60 ml/min/1.73 sqM) Est GFR (CKD-EPI)NonAf (>60 ml/min/1.73 sqM) Glucose (74-99) mg/dL Calcium (8.4-10.2) mg/dL Magnesium 2.0 (1.6-2.3) mg/dL Urine Color Dark Yellow Urine Appearance Clear (Clear) Urine pH 5.5 (5.0-8.0) Ur Specific [place] 1.027 (1.001-1.035) Urine Protein Trace H (Negative) Urine Glucose (UA) Negative (Negative) Urine Ketones Negative (Negative) Urine Blood Negative (Negative) Urine Nitrite Negative (Negative) Urine Bilirubin 1+ H (Negative) Urine Urobilinogen 6.0 (<2.0) mg/dL Ur Leukocyte Esterase Negative (Negative) Stool Occult Blood (Negative) 02/09/20 12:31 EKG shows atrial fibrillation with slow ventricular response. Right bundle branch block. Left anterior fascicular block. Septal infarct age- indeterminate. Possible lateral infarct age undetermined. T-wave and medicated sterile inferior ischemia. Ventricular rate of 44 bpm. Verbal noninjected. Respirations 154 ms. QT QTc 6:30/538 ms. - Radiology Data Radiology results: report reviewed Emphysematous change. No focal airspace opacity. Disposition Clinical Impression: Decubitus ulcer of sacral area, Debilitated patient, Hypokalemia, Bradycardia Disposition: ADMITTED IP TO THIS HOSP Condition: Stable Is patient prescribed a controlled substance at d/c from ED?: No Referrals: [facility],Clinic [Primary Care Provider] - 1-2 days
[2020-02-09 11:46] LABS: Appearance,Urine Clear (Clear); Bilirubin,Urine 1+ (Negative); Blood,Urine Negative (Negative); Color,Urine Dark Yellow; Glucose,Urine (UA) Negative (Negative); Ketones,Urine Negative (Negative); Leukocyte Esterase,Urine Negative (Negative); Nitrite,Urine Negative (Negative); PH, Urine 5.5 (5.0-8.0); Protein,Urine Trace (Negative); Specific Gravity,Urine 1.027 (1.001-1.035)
[2020-02-09 11:49] LABS: Basophils % (A) 0 %; Eosinophils # (A) 0.1 k/uL (0-0.7); Eosinophils % (A) 1 %; HCT 39.9 % (39.0-53.0); HGB 12.6 gm/dL (13.0-17.5); Lymphocytes # (A) 1.1 k/uL (1.0-4.8); Lymphocytes % (A) 13 %; MCH 30.2 pg (25.0-35.0); MCHC 31.5 g/dL (31.0-37.0); MCV 95.7 fL (80.0-100.0); Mean Platelet Volume 8.3; Monocytes # (A) 0.5 k/uL (0-1.0); Monocytes % (A) 6 %; Neutrophils # (A) 6.7 k/uL (1.3-7.7); Neutrophils % (A) 78 %; Platelet Count 211 k/uL (150-450); RBC 4.17 m/uL (4.30-5.90); RDW 15.2 % (11.5-15.5); WBC 8.6 k/uL (3.8-10.6)
[2020-02-09 11:53] LABS: Calcium 8.8 mg/dL (8.4-10.2)
[2020-02-09 12:06] LABS: Potassium 2.7 mmol/L (3.5-5.1)
[2020-02-09] MEDS ORDERED: POTASSIUM CHLORIDE ER 20 MEQ TAB.ER PO STA (12:13)
[2020-02-09] MEDS ORDERED: Potassium Replacement Protocol 1 EACH MISC MISCELLANE PRN ×2 (12:30→15:39)
[2020-02-09] MEDS ORDERED: MAGNESIUM SULFATE-D5W PMX 1 GM in DEXTROSE/WATER 1 100ML.BAG IVPB ONE (13:02)
--- NOTE | 2020-02-09 13:04 | XR ---
EXAMINATION TYPE: XR chest 1V DATE OF EXAM: 02/09/2020 CLINICAL HISTORY: pain. TECHNIQUE: Portable frontal view of the chest. COMPARISON: 09/25/[address] chest 09/02/2019. FINDINGS: Sternotomy wires. The cardiomediastinal silhouette is within normal limits for size. Promi nent right pulmonary artery redemonstrated, which may represent pulmonary arterial hypertension. Coar sened interstitial lung markings and emphysematous changes appear similar to 09/25/2019. There is no f ocal air space opacity, pleural effusion, or pneumothorax seen. No displaced osseous fracture seen. IMPRESSION: 1. Emphysematous change. 2. No focal airspace opacity.
[2020-02-09] MEDS: POTASSIUM CHLORIDE 10 MEQ in WATER FOR INJECTION 1 100ML.BAG IVPB SCH ×6 (13:10→22:12)
[2020-02-09] MEDS ORDERED: NALOXONE 0.4 MG/ML 1 ML VIAL IV PRN (13:47)
[2020-02-09] MEDS ORDERED: MORPHINE SULFATE 4 MG/ML SYRINGE IV PRN (13:47)
[2020-02-09] MEDS ORDERED: IBUPROFEN 400 MG TAB PO PRN (13:47)
[2020-02-09] MEDS ORDERED: LORazepam 2 MG/ML INJ IV PRN (13:47)
[2020-02-09] MEDS ORDERED: ACETAMINOPHEN TAB 325 MG TAB PO PRN (13:47)
[2020-02-09] MEDS ORDERED: IPRATROPIUM-ALBUTEROL 3 ML NEB INHALATION PRN (13:49)
[2020-02-09] MEDS ORDERED: NITROGLYCERIN SL TABS 0.4 MG TAB SUBLINGUAL PRN ×2 (13:49→14:12)
[2020-02-09] MEDS: SODIUM CHLORIDE 0.9% 1,000 ML IV SCH (14:28)
[2020-02-09 14:56] LABS: INR 1.2 (<1.2); Partial Thromboplastin Time 23.6 sec (22.0-30.0); Prothrombin Time 12.3 sec (9.0-12.0)
[2020-02-09] MEDS ORDERED: Magnesium Replacement Protocol 1 EACH MISC MISCELLANE PRN (15:39)
[2020-02-09] MEDS: carvediloL 12.5 MG TAB PO SCH (15:46)
[2020-02-09] MEDS: FUROSEMIDE 80 MG TAB PO SCH (15:54)
[2020-02-09] MEDS: FERROUS SULFATE 325 MG TAB PO SCH (15:54)
[2020-02-09 17:39] LABS: Albumin 2.8 g/dL (3.5-5.0); Calcium 8.3 mg/dL (8.4-10.2); Potassium 3.3 mmol/L (3.5-5.1); Total Bilirubin 1.8 mg/dL (0.2-1.3); Total Protein 6.5 g/dL (6.3-8.2)
[2020-02-09] MEDS ORDERED: ALPRAZolam 0.25 MG TAB PO PRN (19:19)
--- NOTE | 2020-02-09 20:13 | HP ---
HISTORY AND PHYSICAL DATE OF SERVICE: 02/09/2020 CHIEF COMPLAINTS: Abdominal pain and back pain. HISTORY OF PRESENT ILLNESS: This 79-year-old gentleman with a past medical history of multiple medical problems, including atrial fibrillation, CAD, CHF, COPD, hypertension, hyperlipidemia, being followed by Dr. Thacker in the [facility], was living living with family. Apparently the patient is lazy and does not move from the chair, according to the family. The patient was getting progressively weak and developed ulcers and sores in the buttock area and the rectum area. The patient was complaining of severe pain. Patient also some poor hygiene and the patient is a poor historian. Patient was taken to [facility] and was admitted for evaluation and treatment. There is no history of any fever, rigor, chills. There is no history of trauma. A detailed history could not be taken from the patient. Most of the history is taken from my discussion with staff and discussion with the ER physician and review of the chart at this time. The patient also had atrial fibrillation with bradycardia on telemetry. PAST MEDICAL HISTORY: History of atrial fibrillation, CAD, CHF, COPD, hypertension, hyperlipidemia, history of myocardial infarction. HOME MEDICATIONS: Cyclosporin, multivitamins, Spiriva, Zocor, K-Dur, Lasix, folic acid, Coreg, vitamin C, Zaroxolyn, Nitrostat, Imdur, DuoNeb, iron, Symbicort, Eliquis. ALLERGIES: NONE. FAMILY HISTORY: History of pancreatic cancer. SOCIAL HISTORY: History of occasional alcohol previously. Previous history of nicotine dependence. REVIEW OF SYSTEMS: ENT: Diminished hearing. Diminished vision. CARDIOVASCULAR SYSTEM: No angina, palpitations. RESPIRATORY SYSTEM: As mentioned earlier. GI: As mentioned earlier. : As mentioned earlier. NERVOUS SYSTEM: As mentioned earlier. ALLERGY/IMMUNOLOGY: No asthma, hayfever. MUSCULOSKELETAL: As mentioned earlier. HEMATOLOGY/ONCOLOGY: No history of anemia. ENDOCRINE: As mentioned earlier. CONSTITUTIONAL: As mentioned earlier. DERMATOLOGY: Negative. RHEUMATOLOGY: Negative. PSYCHIATRY: As mentioned earlier. PHYSICAL EXAMINATION: Patient alert and oriented x2. Pulse is 40. Blood pressure 120/52, respirations 16, temperature normal, pulse ox 96% on room air. HEENT: Conjunctivae normal. Oral mucosa moist. NECK: No jugular venous distention. CARDIOVASCULAR SYSTEM: S1, S2 irregular and bradycardic. RESPIRATORY SYSTEM: Breath sounds diminished at the bases. A few scattered rhonchi and crackles. Expiratory wheezing. ABDOMEN: Soft, non-tender. No mass palpable. LEGS: No edema. No swelling. NERVOUS SYSTEM: Higher functions as mentioned earlier. Moves all 4 limbs. No focal motor or sensory deficit. LYMPHATICS: No lymph node palpable in neck, axillae or groin. SKIN: No ulcer, rash, bleeding. JOINTS: No active deforming arthropathy. LABS: Hemoglobin 12.6, potassium 2.7. Magnesium is 2. Troponin 0.073 and 0.066. ASSESSMENT: 1. Multiple sacral decubitus ulcers with severe pain and surrounding cellulitis. 2. Change in mental status, acute metabolic encephalopathy, multifactorial, with possible sepsis. 3. Atrial fibrillation with bradycardia. 4. Severe hypokalemia. 5. Generalized asthenia. 6. Gait dysfunction. 7. Troponin 0.073; rule out acute [id number]-elevation myocardial infarction. 8. Hypokalemia. 9. Increased bilirubin. 10.Anemia, normocytic; possibly nutritional. 11.History of atrial fibrillation, chronic. 12.History of coronary artery disease. 13.History of congestive heart failure. 14.Chronic obstructive pulmonary disease. 15.Hypertension. 16.Hyperlipidemia. 17.History of myocardial infarction. 18.History of right lung cancer with wedge resection. 19.Severe pulmonary hypertension. 20.Chronic kidney disease, stage 3. 21.History of coronary artery disease, coronary artery bypass grafting. 22.Claustrophobia. 23.Remote history of nicotine dependence. 24.FULL CODE. RECOMMENDATIONS AND DISCUSSION: In this 79-year-old gentleman who presented with multiple complex medical issues, we will monitor the patient closely, continue the current medications, continue with symptomatic treatment. Otherwise at this time I would initiate broad-spectrum IV antibiotics and dietary consultation for nutrition, and will limit the IV fluids. The chest x-ray was reviewed personally by me and showed some increased bronchovascular markings. Otherwise, the NT proBNP is only 954. I would also recommend PT/OT evaluation and work with the case management social worker and case management social worker team to evaluate the home situation and arrange for possible ECF rehab. Prognosis is extremely guarded because of multiple complex medical issues, as mentioned earlier. Further recommendations to follow. A copy of this dictation is being forwarded to Dr. Thacker, who is the primary physician. Stool OB is positive. MMODL / IJN: [id number] /
[2020-02-09] MEDS: ISOSORBIDE MONONITRATE ER 30 MG TAB.ER.24H PO SCH (23:17)
[2020-02-09] MEDS: ATORVASTATIN 10 MG TAB PO SCH (23:17)
[2020-02-09] MEDS: APIXABAN 2.5 MG TABLET PO SCH (23:18)
[2020-02-10] MEDS: FERROUS SULFATE 325 MG TAB PO SCH ×4 (00:57→21:20)
[2020-02-10] MEDS: HYDROcodone/APAP 5-325MG 1 EACH TAB PO PRN (00:57)
[2020-02-10] MEDS: PIPERACILLIN-TAZOBACTAM 3.375 GM in SODIUM CHLORIDE 0.9% 100 ML IVPB SCH ×4 (00:59→23:19)
[2020-02-10] MEDS: SODIUM CHLORIDE 0.9% 1,000 ML IV SCH ×2 (01:09→15:51)
[2020-02-10] MEDS: cycloSPORINE 0.05% OPHTH 0.4 ML DROPERETTE BOTH EYES SCH ×3 (01:27→21:20)
[2020-02-10] MEDS: HYDROmorphone 0.5 MG/0.5 ML SYRINGE IVP PRN ×2 (04:44→12:15)
[2020-02-10] MEDS: carvediloL 12.5 MG TAB PO SCH (06:31)
[2020-02-10] MEDS: POTASSIUM CHLORIDE ER 20 MEQ TAB.ER PO SCH ×4 (08:09→16:29)
[2020-02-10] MEDS: PANTOPRAZOLE 40 MG/10 ML VIAL IV SCH (08:09)
[2020-02-10] MEDS: APIXABAN 2.5 MG TABLET PO SCH ×2 (08:09→21:20)
[2020-02-10] MEDS: IPRATROPIUM 0.5 MG/2.5 ML NEBU INHALATION SCH ×4 (08:09→19:45)
[2020-02-10] MEDS: FOLIC ACID 1 MG TAB PO SCH (08:09)
[2020-02-10] MEDS: FUROSEMIDE 80 MG TAB PO SCH ×2 (08:09→16:29)
[2020-02-10] MEDS: ASCORBIC ACID 500 MG TAB PO SCH (08:09)
[2020-02-10] MEDS: ISOSORBIDE MONONITRATE ER 30 MG TAB.ER.24H PO SCH ×2 (08:09→21:20)
[2020-02-10] MEDS: SYMBICORT 160-4.5 MCG INHALER INHALATION SCH ×4 (08:09→19:45)
[2020-02-10] MEDS: MULTIVITAMINS, THERA 1 EACH TAB PO SCH (08:09)
[2020-02-10] MEDS ORDERED: metOLazone 2.5 MG TAB PO SCH (08:30)
[2020-02-10 09:22] LABS: Basophils % (A) 0 %; Eosinophils # (A) 0.1 k/uL (0-0.7); Eosinophils % (A) 1 %; HCT 33.6 % (39.0-53.0); HGB 10.7 gm/dL (13.0-17.5); Lymphocytes # (A) 0.9 k/uL (1.0-4.8); Lymphocytes % (A) 10 %; MCH 31.1 pg (25.0-35.0); MCHC 31.9 g/dL (31.0-37.0); MCV 97.5 fL (80.0-100.0); Mean Platelet Volume 8.4; Monocytes # (A) 0.4 k/uL (0-1.0); Monocytes % (A) 5 %; Neutrophils # (A) 7.3 k/uL (1.3-7.7); Neutrophils % (A) 82 %; Platelet Count 195 k/uL (150-450); RBC 3.45 m/uL (4.30-5.90); RDW 15.2 % (11.5-15.5); WBC 8.9 k/uL (3.8-10.6)
[2020-02-10 09:31] LABS: African American GFR (CKD) >90 (>60 ml/min/1.73 sqM); Anion Gap 4 mmol/L; Blood Urea Nitrogen 15 mg/dL (9-20); Carbon Dioxide 22 mmol/L (22-30); Chloride 116 mmol/L (98-107); Cholesterol 63 mg/dL (<200); Glucose 109 mg/dL (74-99); HDL Cholesterol 21 mg/dL (40-60); LDL Cholesterol,Calculated 33 mg/dL (0-99); Magnesium 1.4 mg/dL (1.6-2.3); Non-African American GFR(CKD) 83 (>60 ml/min/1.73 sqM); Sodium 142 mmol/L (137-145); Triglycerides 45 mg/dL (<150)
[2020-02-10 10:07] LABS: Calcium 5.7 mg/dL (8.4-10.2); Potassium 2.9 mmol/L (3.5-5.1)
[2020-02-10] MEDS ORDERED: Potassium Replacement Protocol 1 EACH MISC MISCELLANE PRN ×2 (10:13→10:21)
[2020-02-10] MEDS ORDERED: CALCIUM GLUCONATE 1 GM in SODIUM CHLORIDE 0.9% 100 ML IVPB ONE (11:00)
[2020-02-10] MEDS: THIAMINE 100 MG TAB PO SCH (12:17)
[2020-02-10 13:06] LABS: Potassium 3.5 mmol/L (3.5-5.1)
--- NOTE | 2020-02-10 13:39 | P.CRDCN ---
History of Present Illness Consult date: 02/10/20 History of present illness: CHIEF COMPLAINT: Bradycardia HISTORY OF PRESENT ILLNESS: This is a 79-year old male with a past medical history significant for atrial fibrillation, COPD, hypertension, hyperlipidemia, and coronary artery disease with previous CABG 3 in 2002. It is unknown if the patient follows with a finish carpenter. We have been asked to see the patient in consultation for bradycardia and elevated troponin. Patient examined this morning at the bedside. Patient denies chest pain or pressure. He reports mild shortness of breath. Denies dizziness or lightheadedness. Patient's EKG upon arrival revealed atrial fibrillation with a heart rate in the 40s. Patient is prescribed Coreg 12.5 mg twice a day at home. DIAGNOSTICS: EKG reveals atrial fibrillation. Heart rate 44 Chest xray emphysematous change. No focal airspace opacity. Laboratory data: W BC 8.9. Hemoglobin 10.7. Platelet count 195. Sodium 140. Potassium 3.5. BUN 15. Creatinine 0.84. Magnesium 1.4. Troponin 0.073. 0.066. 0.066. Current home cardiac medications include Zocor 20 mg daily, Lasix 80 mg twice a day, Coreg 12.5mg twice a day, Zaroxolyn 2.5 mg every 48 hours, Imdur 30 mg twice a day, and Eliquis 2.5 mg twice a day Echocardiogram completed in 2019 reveals EF 45-50%, moderate tricuspid regurgit ation and severe pulmonary hypertension REVIEW OF SYSTEMS: At the time of my exam: CONSTITUTIONAL: Denies fever or chills. HEENT: Denies blurred vision, vision changes, or eye pain. Denies hemoptysis CARDIOVASCULAR: Denies chest pain, orthopnea, PND or palpitations RESPIRATORY: No shortness of breath. GASTROINTESTINAL: Denies abdominal pain. Denies nausea or vomiting. HEMATOLOGIC: Denies bleeding disorders. GENITOURINARY: Denies any blood in urine. SKIN: Denies pruitis. Denies rash. PHYSICAL EXAM: VITAL SIGNS: Reviewed. GENERAL: Well-developed in no acute distress. HEENT: Head is normocephalic. Pupils are equal, round. Sclerae anicteric. Mucous membranes of the mouth are moist. Neck supple. No JVD or thyromegaly LUNGS: Respirations even and unlabored. Lungs essentially clear to auscultation bilaterally. HEART: Bradycardic. Irregular rate and rhythm. S1 and S2 heard. ABDOMEN: Soft. Nondistended. Nontender. EXTREMITIES: Normal range of motion. No clubbing or cyanosis. Peripheral pulses intact. No lower extremity edema NEUROLOGIC: Awake and alert. Oriented x 2. ASSESSMENT: Asymptomatic bradycardia Hypokalemia Hypomagnesemia Chronic persistent atrial fibrillation Elevated troponins, no evidence of acute coronary syndrome Chronic diastolic congestive heart failure, EF 50% Coronary artery disease with previous CABG 3 Hypertension Hyperlipidemia COPD PLAN: Resume home cardiac medications Replace potassium and magnesium per protocol Obtain 2-D echo to assess cardiac structure and function Resume beta everton. However decreased dose to 3.125 mg twice a day and hold for heart rate less than 50 Further recommendations pending patient's course Nurse practitioner note has been reviewed by physician. Signing provider agrees with the documented findings, assessment, and plan of care. Past Medical History Past Medical History: Atrial Fibrillation, Coronary Artery Disease (CAD), Cancer, Heart Failure, COPD, Hyperlipidemia, Hypertension, Myocardial Infarction ([place]), Renal Disease Additional Past Medical History / Comment(s): R lung cancer with wedge resection-no chemo or radiation, severe pulmonary HTN, CKD stage III, anemia,hiatal hernia, constipation/benign polyp, bradycardia. Last Myocardial Infarction Date:: 2002 History of Any Multi-Drug Resistant Organisms: None Reported Past Surgical History: Appendectomy, Coronary Bypass/CABG, Heart Catheterization, Orthopedic Surgery Additional Past Surgical History / Comment(s): 2002 CABG 3 vessel, cardiac angioplasty, R lung wedge resection, R hip closed reduction/ORIF, EGD, colonoscopies/polypectgomies. Past Anesthesia/Blood Transfusion Reactions: No Reported Reaction Additional Past Anesthesia/Blood Transfusion Reaction / Comment(s): CLAUSTERPHOBIA. Pt has received blood in past without reaction. Smoking Status: Former smoker - Past Family History Father Family Medical History: Cancer Additional Family Medical History / Comment(s): of pancreatic cancer Mother Family Medical History: Diabetes Mellitus Additional Family Medical History / Comment(s): AT AGE 90 WAS IN PRETTY GOOD HEALTH FROM OLD AGE Brother(s) Family Medical History: Diabetes Mellitus Additional Family Medical History / Comment(s): 2 BROTHERS HAVE DIABETES Medications and Allergies Home Medications Medication Instructions Recorded Confirmed Type Tiotropium 18 Mcg/Puff [Spiriva] 1 cap INHALATION RT-DAILY 07/13/13 02/09/20 History Nitroglycerin Sl Tabs [Nitrostat] 0.4 mg SUBLINGUAL Q5M PRN 03/19/16 02/09/20 History Ferrous Sulfate [Iron] 325 mg PO TID 11/09/17 02/09/20 History Isosorbide Mononitrate [Isosorbide 30 mg PO BID 11/09/17 02/09/20 History Mononitrate ER] Simvastatin [Zocor] 20 mg PO HS 01/01/18 02/09/20 History Carvedilol [Coreg] 12.5 mg PO BID 03/22/18 02/09/20 History Furosemide [Lasix] 80 mg PO BID 03/22/18 02/09/20 History Ipratropium-Albuterol Nebulize 3 ml INHALATION RT-QID PRN 03/22/18 02/09/20 History [Duoneb 0.5 mg-3 mg/3 ml Soln] metOLazone [Zaroxolyn] 2.5 mg PO Q48H 06/03/18 02/09/20 History Apixaban [Eliquis] 2.5 mg PO BID 09/27/18 02/09/20 History Budesonide-Formot 160-4.5 Mcg 2 puff INHALATION RT-BID 09/25/19 02/09/20 History [Symbicort 160-4.5 Mcg Inhaler] Folic Acid 1 mg PO DAILY 09/25/19 02/09/20 History Ascorbic Acid [Vitamin C] 250 mg PO DAILY 02/09/20 02/09/20 History Multivitamins, Thera [Multivitamin 1 tab PO DAILY 02/09/20 02/09/20 History (formulary)] Potassium Chloride ER [K-Dur 20] 20 meq PO DAILY 02/09/20 02/09/20 History cycloSPORINE 0.05% OPHTH SOLN 1 applicator BOTH EYES Q12H 02/09/20 02/09/20 History [Restasis] Allergies Allergy/AdvReac Type Severity Reaction Status Date / Time No Known Allergies Allergy Verified 02/09/20 11:20 Physical Exam Vitals: Vital Signs Temp Pulse Pulse Pulse Resp BP BP 02/10/20 11:04 97.5 F L 64 20 135/98 02/10/20 08:15 98 F 44 L 18 119/55 02/10/20 08:10 40 L 02/10/20 04:00 97.5 F L 54 L 18 122/60 02/09/20 23:43 97.3 F L 48 L 16 145/56 02/09/20 22:00 44 L 16 131/54 02/09/20 20:00 97.7 F 48 L 48 L 18 128/60 02/09/20 19:00 50 L 137/62 02/09/20 18:00 52 L 16 02/09/20 17:00 49 L 16 02/09/20 15:58 40 L 16 129/52 02/09/20 15:00 39 L 16 112/60 02/09/20 14:00 43 L 16 92/74 Pulse Ox 02/10/20 11:04 93 L 02/10/20 08:15 95 02/10/20 08:10 02/10/20 04:00 93 L 02/09/20 23:43 95 02/09/20 22:00 95 02/09/20 20:00 94 L 02/09/20 19:00 96 02/09/20 18:00 96 02/09/20 17:00 96 02/09/20 15:58 96 02/09/20 15:00 96 02/09/20 14:00 96 Intake and Output 02/09/20 02/10/20 02/10/20 22:59 06:59 14:59 Intake Total 520 Output Total 250 Balance 270 Intake: Intake, IV Titration 500 Amount Piperacillin-Tazobactam 3 100 .375 gm In Sodium Chloride 0.9% 100 ml @ 25 mls/hr IVPB Q8HR [facility] Rx# :[id number] Sodium Chloride 0.9% 1, 400 000 ml @ 100 mls/hr IV . Q10H [facility] Rx#:[id number] Oral 20 Output: Urine 250 Other: Voiding Method Urinal Urinal Urinal # Voids 1 # Bowel Movements 1 Weight 85.7 kg 85.7 kg Results 02/10/20 08:03 02/10/20 12:25 Cardiac Enzymes 02/09/20 02/09/20 02/09/20 Range/Units 11:29 14:51 17:09 AST (17-59) U/L Troponin I 0.073 H* 0.066 H* 0.066 H* (0.000-0.034) ng/mL 02/09/20 Range/Units 17:09 AST 30 (17-59) U/L Troponin I (0.000-0.034) ng/mL Coagulation 02/09/20 Range/Units 14:28 PT 12.3 H (9.0-12.0) sec APTT 23.6 (22.0-30.0) sec Lipids 02/10/20 Range/Units 08:03 Triglycerides 45 (<150) mg/dL Cholesterol 63 (<200) mg/dL HDL Cholesterol 21 L (40-60) mg/dL CBC 02/10/20 Range/Units 08:03 WBC 8.9 (3.8-10.6) k/uL RBC 3.45 L (4.30-5.90) m/uL Hgb 10.7 L (13.0-17.5) gm/dL Hct 33.6 L (39.0-53.0) % Plt Count 195 (150-450) k/uL Comprehensive Metabolic Panel 02/09/20 02/10/20 02/10/20 Range/Units 17:09 08:03 12:25 Sodium 137 142 140 (137-145) mmol/L Potassium 3.3 L 2.9 L 3.5 (3.5-5.1) mmol/L Chloride 104 116 H 103 (98-107) mmol/L Carbon Dioxide 27 22 31 H (22-30) mmol/L BUN 19 15 (9-20) mg/dL Creatinine 1.08 0.84 (0.66-1.25) mg/dL Glucose 123 H 109 H (74-99) mg/dL Calcium 8.3 L 5.7 L* (8.4-10.2) mg/dL AST 30 (17-59) U/L ALT 14 (4-49) U/L Alkaline Phosphatase 35 L (38-126) U/L Total Protein 6.5 (6.3-8.2) g/dL Albumin 2.8 L (3.5-5.0) g/dL Current Medications Generic Name Dose Route Start Last Admin Trade Name Freq PRN Reason Stop Dose Admin Acetaminophen 650 mg 02/09/20 13:47 Acetaminophen Tab 325 Mg Tab PO Q6HR PRN Mild Pain or Fever > 100.5 Hydrocodone Bitart/Acetaminophen 1 each 02/09/20 19:19 02/10/20 00:57 Hydrocodone/Apap 5-325mg 1 Each Tab PO 1 each Q6HR PRN Administration Pain Albuterol/Ipratropium 3 ml 02/09/20 13:49 Ipratropium-Albuterol 3 Ml Neb INHALATION RT-QID PRN Shortness Of Breath Alprazolam 0.25 mg 02/09/20 19:19 Alprazolam 0.25 Mg Tab PO TID PRN Anxiety Apixaban 2.5 mg 02/09/20 21:00 02/10/20 08:09 Apixaban 2.5 Mg Tablet PO 2.5 mg BID [facility] Administration Ascorbic Acid 250 mg 02/10/20 09:00 02/10/20 08:09 Ascorbic Acid 500 Mg Tab PO 250 mg DAILY [facility] Administration Atorvastatin Calcium 10 mg 02/09/20 21:00 02/09/20 23:17 Atorvastatin 10 Mg Tab PO 10 mg HS [facility] Administration Budesonide/Formoterol Fumarate 2 puff 02/09/20 20:00 02/10/20 00:00 Symbicort 160-4.5 Mcg Inhaler INHALATION Not Given RT-BID [facility] Carvedilol 3.125 mg 02/10/20 17:30 Carvedilol 3.125 Mg Tab PO BID-W/MEALS [facility] Cyclosporine 1 drops 02/09/20 21:00 02/10/20 08:10 Cyclosporine 0.05% Ophth 0.4 Ml [place] BOTH EYES 1 drops Q12HR [facility] Administration Ferrous Sulfate 325 mg 02/09/20 16:00 02/10/20 08:09 Ferrous Sulfate 325 Mg Tab PO 325 mg TID [facility] Administration Folic Acid 1 mg 02/10/20 09:00 02/10/20 08:09 Folic Acid 1 Mg Tab PO 1 mg DAILY [facility] Administration Furosemide 80 mg 02/09/20 16:00 02/10/20 08:09 Furosemide 80 Mg Tab PO 80 mg BID@0900,1600 [facility] Administration Hydromorphone HCl 0.5 mg 02/09/20 13:47 02/10/20 12:15 Hydromorphone 0.5 Mg/0.5 Ml Syringe IVP 0.5 mg Q3HR PRN Administration Moderate Pain Sodium Chloride 1,000 mls @ 100 mls/hr 02/09/20 14:00 02/10/20 01:09 Saline 0.9% IV 100 mls/hr .Q10H [facility] Administration Piperacillin Sod/Tazobactam 100 mls @ 25 mls/hr 02/10/20 00:00 02/10/20 08:10 Sod 3.375 gm/ Sodium Chloride IVPB 25 mls/hr Q8HR [facility] Administration Ibuprofen 400 mg 02/09/20 13:47 Ibuprofen 400 Mg Tab PO Q6HR PRN Mild Pain or Fever > 100.5 Ipratropium [place] 0.5 mg 02/10/20 08:00 02/10/20 08:09 Ipratropium 0.5 Mg/2.5 Ml Nebu INHALATION 0.5 mg RT-QID [facility] Administration Isosorbide Mononitrate 30 mg 02/09/20 21:00 02/10/20 08:09 Isosorbide Mononitrate Er 30 Mg Tab.Er.24h PO 30 mg BID [facility] Administration Lorazepam 0.5 mg 02/09/20 13:47 Lorazepam 2 Mg/Ml Inj IV Q6HR PRN Anxiety Metolazone 2.5 mg 02/10/20 08:30 02/10/20 08:10 Metolazone 2.5 Mg Tab PO 2.5 mg Q48H [facility] Administration Miscellaneous Information 1 each 02/09/20 12:30 Potassium Replacement Protocol 1 Each Misc MISCELLANE DAILY PRN Per Protocol Protocol Miscellaneous Information 1 each 02/09/20 15:39 Magnesium Replacement Protocol 1 Each Misc MISCELLANE DAILY PRN Per Protocol Protocol Miscellaneous Information 1 each 02/09/20 15:39 Potassium Replacement Protocol 1 Each Misc MISCELLANE DAILY PRN Per Protocol Protocol Miscellaneous Information 1 each 02/10/20 10:13 Potassium Replacement Protocol 1 Each Misc MISCELLANE DAILY PRN Per Protocol Protocol Miscellaneous Information 1 each 02/10/20 10:21 Potassium Replacement Protocol 1 Each Misc MISCELLANE DAILY PRN Per Protocol Protocol Morphine Sulfate 4 mg 02/09/20 13:47 Morphine Sulfate 4 Mg/Ml Syringe IV Q4HR PRN Severe Pain Multivitamins 1 each 02/10/20 09:00 02/10/20 08:09 Multivitamins, Thera 1 Each Tab PO 1 each DAILY [facility] Administration Naloxone HCl 0.2 mg 02/09/20 13:47 Naloxone 0.4 Mg/Ml 1 Ml Vial IV Q2M PRN Opioid Reversal Nitroglycerin 0.4 mg 02/09/20 13:49 Nitroglycerin Sl Tabs 0.4 Mg Tab SUBLINGUAL Q5M PRN Chest Pain Pantoprazole Sodium 40 mg 02/10/20 09:00 02/10/20 08:09 Pantoprazole 40 Mg/10 Ml Vial IV 40 mg DAILY [facility] Administration Potassium Chloride 20 meq 02/10/20 09:00 02/10/20 08:09 Potassium Chloride Er 20 Meq Tab.Er PO 20 meq DAILY [facility] Administration Thiamine HCl 100 mg 02/10/20 12:00 02/10/20 12:17 Thiamine 100 Mg Tab PO 100 mg DAILY@1200 [facility] Administration Intake and Output 02/09/20 02/10/20 02/10/20 22:59 06:59 14:59 Intake Total 520 Output Total 250 Balance 270 Intake: Intake, IV Titration 500 Amount Piperacillin-Tazobactam 3 100 .375 gm In Sodium Chloride 0.9% 100 ml @ 25 mls/hr IVPB Q8HR [facility] Rx# :[id number] Sodium Chloride 0.9% 1, 400 000 ml @ 100 mls/hr IV . Q10H [facility] Rx#:[id number] Oral 20 Output: Urine 250 Other: Voiding Method Urinal Urinal Urinal # Voids 1 # Bowel Movements 1 Weight 85.7 kg 85.7 kg Patient Weight 02/11/20 06:59 Weight 85.7 kg 02/10/20 08:03 02/10/20 12:25
[2020-02-10] MEDS: carvediloL 3.125 MG TAB PO SCH (16:36)
[2020-02-10] MEDS: ATORVASTATIN 10 MG TAB PO SCH (21:20)
--- NOTE | 2020-02-10 21:58 | PN ---
PROGRESS NOTE DATE OF SERVICE: 02/10/2020 This 79-year-old gentleman admitted with significant multiple sacral decubitus ulcers also has significant hypokalemia also. The patient was also seen by Cardiology for bradycardia which is asymptomatic. A 2D echo with Doppler has been recommended. No chest pain. No palpitations. PAST MEDICAL HISTORY: Reviewed. REVIEW OF SYSTEMS: CARDIOVASCULAR: As mentioned earlier. RESPIRATORY: As mentioned earlier. GI: As mentioned earlier. : No dysuria. NERVOUS SYSTEM: No numbness or weakness. CURRENT MEDICATIONS: Include Tylenol, [place] 5 mg, DuoNeb, Xanax, Eliquis, vitamin C, Lipitor, Symbicort, Coreg. Doses reviewed. PHYSICAL EXAM: Patient is alert, oriented x3. Pulse is 46, blood pressure 111/57, respiration 18, temperature 97.7 cm. HEENT: Conjunctivae normal. Oral mucosa moist. NECK: No jugular venous distention. No lymph node enlargement. CARDIOVASCULAR: S1, S2, muffled. No S3, no S4, RESPIRATORY: Diminished breath sounds at the bases. Bilateral scattered rhonchi and crackles. ABDOMEN: Soft, nontender. LEGS: No edema, no swelling. NERVOUS SYSTEM: No focal motor or sensory deficits. LABS: WBC 8.2, hemoglobin 10.7. Potassium is 2.9 and 3.5 and calcium is 5.7 and HCT is 21. ASSESSMENT: 1. Multiple sacral decubitus ulcers with severe pain and surrounding cellulitis. 2. Change in mental status, acute metabolic encephalopathy, multifactorial with possible sepsis. 3. Gait dysfunction. 4. Atrial fibrillation with bradycardia. 5. Severe hypokalemia. 6. Generalized asthenia. 7. Gait dysfunction. 8. Troponin 0.07. Rule out acute sgy-GH-wiwezla-elevation myocardial infarction. 9. Hypokalemia. 10.Increased bilirubin. 11.Anemia, normocytic, possibly nutrition. 12.History atrial fibrillation chronic. 13.History of CAD. 14.History of CHF. 15.History of COPD. 16.Hypertension. 17.Hyperlipidemia. 18.History of myocardial infarction. 19.History of right lung cancer with wedge resection. 20.Severe pulmonary hypertension. 21.Chronic kidney stage 3. 22.History of coronary artery disease, coronary artery bypass grafting. 23.Claustrophobia. 24.Remote history of nicotine dependence. 25.FULL CODE. RECOMMENDATIONS AND DISCUSSION: Recommend to continue current management and symptomatic treatment. Otherwise, closely follow with Cardiology, antibiotics, replace potassium, recheck lytes. Guarded prognosis because of multiple complex medical issues. Further recommendations to follow. MMODL / IJN: [id number] /
[2020-02-11] MEDS: carvediloL 3.125 MG TAB PO SCH (06:25)
[2020-02-11] MEDS: IPRATROPIUM 0.5 MG/2.5 ML NEBU INHALATION SCH ×4 (07:25→19:52)
[2020-02-11] MEDS: SYMBICORT 160-4.5 MCG INHALER INHALATION SCH ×2 (07:25→19:52)
[2020-02-11 08:09] LABS: Basophils # (A) 0.1 k/uL (0-0.2); Basophils % (A) 1 %; Eosinophils # (A) 0.1 k/uL (0-0.7); Eosinophils % (A) 1 %; HCT 38.9 % (39.0-53.0); HGB 12.8 gm/dL (13.0-17.5); Lymphocytes # (A) 1.1 k/uL (1.0-4.8); Lymphocytes % (A) 9 %; MCH 31.2 pg (25.0-35.0); MCV 94.6 fL (80.0-100.0); Mean Platelet Volume 8.1; Monocytes # (A) 0.9 k/uL (0-1.0); Monocytes % (A) 7 %; Neutrophils # (A) 9.9 k/uL (1.3-7.7); Neutrophils % (A) 80 %; Platelet Count 209 k/uL (150-450); RBC 4.11 m/uL (4.30-5.90); RDW 14.7 % (11.5-15.5); WBC 12.3 k/uL (3.8-10.6)
[2020-02-11] MEDS ORDERED: VANCOMYCIN IV PER PHARMACY 1 EACH MISC MISCELLANE PRN (08:21)
[2020-02-11 08:22] LABS: Potassium 3.3 mmol/L (3.5-5.1)
[2020-02-11 08:24] LABS: Calcium 8.8 mg/dL (8.4-10.2)
[2020-02-11] MEDS: PANTOPRAZOLE 40 MG/10 ML VIAL IV SCH (08:49)
[2020-02-11] MEDS: PIPERACILLIN-TAZOBACTAM 3.375 GM in SODIUM CHLORIDE 0.9% 100 ML IVPB SCH ×3 (08:49→23:18)
[2020-02-11] MEDS: ASCORBIC ACID 500 MG TAB PO SCH (08:49)
[2020-02-11] MEDS: FOLIC ACID 1 MG TAB PO SCH (08:50)
[2020-02-11] MEDS: FERROUS SULFATE 325 MG TAB PO SCH ×3 (08:50→21:16)
[2020-02-11] MEDS: APIXABAN 2.5 MG TABLET PO SCH ×2 (08:50→21:16)
[2020-02-11] MEDS: POTASSIUM CHLORIDE ER 20 MEQ TAB.ER PO SCH ×3 (08:50→13:11)
[2020-02-11] MEDS: ISOSORBIDE MONONITRATE ER 30 MG TAB.ER.24H PO SCH ×2 (08:50→21:16)
[2020-02-11] MEDS: MULTIVITAMINS, THERA 1 EACH TAB PO SCH (08:50)
[2020-02-11] MEDS: FUROSEMIDE 80 MG TAB PO SCH (08:50)
[2020-02-11] MEDS: cycloSPORINE 0.05% OPHTH 0.4 ML DROPERETTE BOTH EYES SCH ×2 (08:51→21:16)
[2020-02-11] MEDS ORDERED: Potassium Replacement Protocol 1 EACH MISC MISCELLANE PRN (09:19)
[2020-02-11] MEDS ORDERED: VANCOMYCIN 1,750 MG in SODIUM CHLORIDE 0.9% 500 ML 500 ML IVPB ONE (10:00)
[2020-02-11] MEDS: THIAMINE 100 MG TAB PO SCH (11:19)
--- NOTE | 2020-02-11 11:20 | ECHOF ---
Referral Reason:lv function, elevated troponin MEASUREMENTS -------- HEIGHT: 177.8 cm WEIGHT: 85.3 kg BP: IVSd: 1.2 cm (0.6 - 1.1) LVIDd: 4.3 cm (3.9 - 5.3) LVPWd: 1.3 cm (0.6 - 1.1) EDV(Teich): 82 ml IVSs: 1.7 cm LVIDs: 2.3 cm LVPWs: 1.9 cm %IVS Thck: 38 % ESV(Teich): 18 ml EF(Teich): 77 % %FS: 46 % SV(Teich): 63 ml Ao Diam: 2.6 cm (2.0 - 3.7) LA Diam: 3.0 cm (2.7 - 3.8) AV Cusp: 1.2 cm (1.5 - 2.6) MV E Lino: 1.10 m/s MV DecT: 185 ms MV Dec [place]: 5.9 m/s MV A Lino: 0.43 m/s MV E/A Ratio: 2.57 MV PHT: 54 ms MR Vmax: 1.90 m/s MR maxP.39 mmHg AV Vmax: 0.89 m/s AV maxP.15 mmHg TR Vmax: 1.21 m/s TR maxP.82 mmHg RAP: 5.00 mmHg RVSP: 10.82 mmHg FINDINGS -------- This was a technically difficult study with suboptimal views. The left ventricular size is normal. There is mild concentric left ventricular hypertrophy. Overa ll left ventricular systolic function is low-normal with, an EF between 50 - 55 %. The RV was not well visualized. The left atrium was not well visualized. The right atrium was not well visualized. Lumason used The aortic valve was not well visualized. The mitral valve was not well visualized. The tricuspid valve was not well visualized. Trace tricuspid regurgitation present. Right ventric ular systolic pressure is normal at < 35 mmHg. The pulmonic valve was not well visualized. IVC Not well visulized. CONCLUSIONS -------- 1. The left ventricular size is normal. 2. There is mild concentric left ventricular hypertrophy. 3. Overall left ventricular systolic function is low-normal with, an EF between 50 - 55 %. 4. Trace tricuspid regurgitation present. RN PRIMARY CARE: Emily Montano RDCS
[2020-02-11] MEDS: HYDROcodone/APAP 5-325MG 1 EACH TAB PO PRN (11:50)
[2020-02-11] MEDS: IOPAMIDOL CONTRAST (ORAL USE) VIAL PO PRN ×2 (13:58→15:11)
--- NOTE | 2020-02-11 14:35 | P.PN ---
Subjective Progress Note Date: 02/11/20 CHIEF COMPLAINT: Bradycardia HISTORY OF PRESENT ILLNESS: This is a 79-year old male with a past medical history significant for atrial fibrillation, COPD, hypertension, hyperlipidemia, and coronary artery disease with previous CABG 3 in 2002. 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 We have been asked to see the patient in consultation for bradycardia and elevated troponin. Patient examined this morning at the bedside. Patient denies chest pain or pressure. He reports mild shortness of breath. Denies dizziness or lightheadedness. Patient's EKG upon arrival revealed atrial fibrillation with a heart rate in the 40s. Patient is prescribed Coreg 12.5 mg twice a day at home. 02/11/2020 Patient examined this morning at the bedside. He denies chest pain or pressure. Denies shortness of breath. Denies dizziness or lightheadedness. Patient's heart rate remains in the 30s and 40s. Echocardiogram reveals EF 50-55%. Creatinine 1.50. PHYSICAL EXAM: VITAL SIGNS: Reviewed. GENERAL: Well-developed in no acute distress. HEENT: Head is normocephalic. Pupils are equal, round. Sclerae anicteric. Mucous membranes of the mouth are moist. Neck supple. No JVD or thyromegaly LUNGS: Respirations even and unlabored. Lungs essentially clear to auscultation bilaterally. HEART: Bradycardic. Irregular rate and rhythm. S1 and S2 heard. ABDOMEN: Soft. Nondistended. Nontender. EXTREMITIES: Normal range of motion. No clubbing or cyanosis. Peripheral pulses intact. No lower extremity edema NEUROLOGIC: Awake and alert. Oriented x 2. ASSESSMENT: Asymptomatic bradycardia Hypokalemia Hypomagnesemia Chronic persistent atrial fibrillation Elevated troponins, no evidence of acute coronary syndrome Chronic diastolic congestive heart failure, EF 50% Coronary artery disease with previous CABG 3 Hypertension Hyperlipidemia COPD Acute kidney injury PLAN: Continue to hold beta blockers Discontinue IV Lasix. Begin oral Lasix 40 mg twice a day Patient not a candidate for PPM per Dr. Hair Further recommendations pending patient's course Nurse practitioner note has been reviewed by physician. Signing provider agrees with the documented findings, assessment, and plan of care. Objective - Vital Signs Vital signs: Vital Signs Temp 97.3 F L 02/11/20 11:53 Pulse 38 L 02/11/20 11:53 Resp 18 02/11/20 11:53 BP 109/80 02/11/20 11:53 Pulse Ox 95 02/11/20 11:53 Intake & Output 02/10/20 02/11/20 02/11/20 18:59 06:59 18:59 Intake Total 660 Output Total 250 900 Balance 410 -900 Weight 85.7 kg 83.7 kg Intake: Intake, IV Titration 500 Amount Piperacillin-Tazobactam 3 100 .375 gm In Sodium Chloride 0.9% 100 ml @ 25 mls/hr IVPB Q8HR [facility] Rx# :[id number] Sodium Chloride 0.9% 1, 400 000 ml @ 100 mls/hr IV . Q10H [facility] Rx#:[id number] Oral 160 Output: Urine 250 900 Other: Voiding Method Urinal Urinal Urinal # Voids 4 5 # Bowel Movements 2 - Labs CBC & Chem 7: 02/11/20 07:49 02/11/20 07:49 Labs: Abnormal Lab Results - Last 24 Hours (Table) 02/11/20 02/11/20 Range/Units 07:49 07:49 WBC 12.3 H (3.8-10.6) k/uL RBC 4.11 L (4.30-5.90) m/uL Hgb 12.8 L (13.0-17.5) gm/dL Hct 38.9 L (39.0-53.0) % Neutrophils # 9.9 H (1.3-7.7) k/uL Potassium 3.3 L (3.5-5.1) mmol/L Carbon Dioxide 34 H (22-30) mmol/L BUN 22 H (9-20) mg/dL Creatinine 1.50 H (0.66-1.25) mg/dL Glucose 130 H (74-99) mg/dL Microbiology - Last 24 Hours (Table) 02/09/20 11:48 Blood Culture - Preliminary Blood No Growth after 48 hours 02/10/20 04:00 Gram Stain - Preliminary Buttock Wound Culture - Preliminary Presumptive MRSA
[2020-02-11] MEDS: FUROSEMIDE 40 MG TAB PO SCH (15:12)
--- NOTE | 2020-02-11 16:10 | CT ---
EXAMINATION TYPE: CT abdomen pelvis wo con DATE OF EXAM: 02/11/2020 COMPARISON: 09/02/2019 HISTORY: Abdomnal pain CT DLP: 654.5 mGycm Automated exposure control for dose reduction was used. Lung bases are clear of consolidation. There is no pleural effusion. There is small hiatal hernia. He art size is normal. Liver is intact. The bile ducts are not dilated. There are multiple small calcified gallstones. Splee n is intact. There is no pancreatic mass. There is no adrenal mass. Kidneys have normal size. There is no hydronephrosis. There is 3 cm cortica l cyst lateral right kidney. The ureters are not dilated. There is no retroperitoneal adenopathy. Abd ominal aorta is atheromatous. Bladder distends smoothly. Prostate is enlarged and measures 5.3 cm. There is no inguinal hernia. There is retained fecal materi al in the rectum that measures 8 cm. There is no mesenteric edema. There is no ascites or free air. There is no intestinal wall thickening . There is L5 spondylolysis with minimal first-degree L5-S1 spondylolisthesis. There is no lumbar compr ession fracture. There is no evidence of any significant lumbar spinal stenosis. There is osteopenia. There is right hip nailing. I see no acute fracture. The pelvic ring is intact. Appendix is not seen . There is no sign of thickened appendix. IMPRESSION: Small hiatal hernia increased compared to old exam. Cholelithiasis unchanged. Atherosclerotic vascular disease. Rectal fecal impaction appears increased compared to old exam.
--- NOTE | 2020-02-11 16:11 | PN ---
PROGRESS NOTE DATE OF SERVICE: 02/11/2020 This 79-year-old gentleman who was admitted with multiple sacral decubitus ulcers is also complaining of rectal pain. The patient has some change in mental status. Patient also had some gait dysfunction. The patient being closely monitored. The patient also had hypokalemia. Multiple consultants are following the patient including Cardiology. 2 D echo with Doppler was done which showed ejection fraction about 50-55 percent and multiple chambers are not well visualized. Past medical history reviewed. REVIEW OF SYSTEMS: Cardiovascular system: S1, S2 muffled. GI: As mentioned earlier. no dysuria. NERVOUS SYSTEM: No numbness or weakness. CURRENT MEDICATIONS: Reviewed and include: Tylenol, [place], DuoNeb, Xanax, Eliquis, vitamin C, Lipitor, Symbicort, cyclosporine, iron sulfate, folic acid, Lasix, Dilaudid, Motrin. PHYSICAL EXAM: Patient is alert, oriented x3. Pulse is 38, blood pressure 109/80, respirations 18, temperature 99, pulse ox 94% on room air. HEENT: Conjunctivae normal. NECK: No JVD. CARDIOVASCULAR: S1, S2 muffled. RESPIRATORY SYSTEM: Breath sounds diminished at the bases. A few scattered rhonchi. ABDOMEN: Soft, nontender. LEGS are no edema, no swelling. NERVOUS SYSTEM: No focal deficits. LAB STUDIES: WBC 12.5, hemoglobin 12.8, sodium 143, potassium 3.3, calcium is 8.8 today. ASSESSMENT: 1. Multiple sacral decubitus with severe pain and surrounding cellulitis. 2. Rectal pain. 3. Change in mental status acute metabolic encephalopathy multifactorial with possible sepsis. 4. Gait dysfunction. 5. Atrial fibrillation with bradycardia. 6. Severe hypokalemia. 7. Generalized asthenia. 8. Troponin 0.07, rule out acute pbf-[id number]-vsrdiaa-elevation myocardial infarction. 9. Hypokalemia. 10.Increased bilirubin. 11.Anemia, normocytic possibly nutritional. 12.History of atrial fibrillation, chronic. 13.History of coronary artery disease. 14.History of congestive heart failure with chronic diastolic dysfunction. 15.History of chronic obstructive pulmonary disease, asthma. 16.History of hypertension. 17.Hyperlipidemia. 18.History of myocardial infarction. 19.History of right lung cancer with wedge resection. 20.History of severe pulmonary hypertension. 21.Chronic kidney stage 3. 22.History of coronary artery disease, coronary artery bypass grafting. 23.Claustrophobia. 24.Remote history of nicotine dependence. 25.Acute renal failure. 26.FULL CODE. RECOMMENDATIONS AND DISCUSSION: Recommend to continue current medications, symptomatic treatment. Otherwise at this time. I would also recommend a CT scan of the abdomen and pelvis to complete the workup. Creatinine has worsened to 1.5. I would recommend monitor creatinine closely. Coreg has been stopped per Cardiology. We will closely continue to monitor. Monitor creatinine closely. Guarded prognosis because of multiple complex medical issues. The calcium is improved significantly. Obtain the CT scan without any IV contrast. Further recommendations to follow. MMODL / IJN: [id number] /
[2020-02-11] MEDS: ATORVASTATIN 10 MG TAB PO SCH (21:16)
[2020-02-12] MEDS: VANCOMYCIN 1,500 MG in SODIUM CHLORIDE 0.9% 250 ML IVPB SCH ×2 (02:26→18:04)
--- NOTE | 2020-02-12 05:19 | XR ---
EXAM: XR Chest, 1 View CLINICAL HISTORY: ITS.REASON XR Reason: decreased O2 sats, diminished lungs, SOB TECHNIQUE: Frontal view of the chest. COMPARISON: 02/09/2020 FINDINGS: Lungs: No focal consolidation. The pulmonary vasculature demonstrates no significant radiographic abnormality. Pleural space: Unremarkable. No pneumothorax. No large pleural effusion. Heart: Cardiac silhouette is within normal limits. Mediastinum: Extensive mediastinal clips are stable from the previous examination. No tracheal deviation. Stable at this chronic calcification of the aorta without aortic enlargement. Bones/joints: Intact sternotomy wires. No acute osseous abnormality. IMPRESSION: No focal consolidation, acute cardiopulmonary process or significant alteration from the previous examination.
[2020-02-12] MEDS: FUROSEMIDE 40 MG TAB PO SCH (08:29)
[2020-02-12] MEDS: MULTIVITAMINS, THERA 1 EACH TAB PO SCH (08:29)
[2020-02-12] MEDS: PANTOPRAZOLE 40 MG TABLET PO SCH (08:29)
[2020-02-12] MEDS: APIXABAN 2.5 MG TABLET PO SCH ×2 (08:30→20:33)
[2020-02-12] MEDS: FOLIC ACID 1 MG TAB PO SCH (08:30)
[2020-02-12] MEDS: ISOSORBIDE MONONITRATE ER 30 MG TAB.ER.24H PO SCH ×2 (08:30→20:33)
[2020-02-12] MEDS: FERROUS SULFATE 325 MG TAB PO SCH ×3 (08:30→20:33)
[2020-02-12] MEDS: ASCORBIC ACID 500 MG TAB PO SCH (08:30)
[2020-02-12] MEDS: PIPERACILLIN-TAZOBACTAM 3.375 GM in SODIUM CHLORIDE 0.9% 100 ML IVPB SCH ×3 (08:30→23:29)
[2020-02-12] MEDS: cycloSPORINE 0.05% OPHTH 0.4 ML DROPERETTE BOTH EYES SCH ×2 (08:31→20:33)
[2020-02-12] MEDS: POTASSIUM CHLORIDE ER 20 MEQ TAB.ER PO SCH ×4 (08:35→23:29)
[2020-02-12] MEDS: SYMBICORT 160-4.5 MCG INHALER INHALATION SCH ×2 (08:49→20:16)
[2020-02-12] MEDS: IPRATROPIUM 0.5 MG/2.5 ML NEBU INHALATION SCH ×4 (08:49→20:16)
[2020-02-12 09:10] LABS: Basophils % (A) 0 %; Eosinophils # (A) 0.1 k/uL (0-0.7); Eosinophils % (A) 1 %; HCT 37.4 % (39.0-53.0); HGB 12.4 gm/dL (13.0-17.5); Lymphocytes # (A) 1.4 k/uL (1.0-4.8); Lymphocytes % (A) 9 %; MCH 31.1 pg (25.0-35.0); MCHC 33.1 g/dL (31.0-37.0); MCV 94.1 fL (80.0-100.0); Mean Platelet Volume 8.4; Monocytes % (A) 6 %; Neutrophils % (A) 82 %; Platelet Count 194 k/uL (150-450); RBC 3.98 m/uL (4.30-5.90); RDW 14.9 % (11.5-15.5); WBC 15.8 k/uL (3.8-10.6)
[2020-02-12 09:30] LABS: Calcium 8.3 mg/dL (8.4-10.2)
[2020-02-12] MEDS ORDERED: Potassium Replacement Protocol 1 EACH MISC MISCELLANE PRN (10:00)
[2020-02-12] MEDS ORDERED: Magnesium Replacement Protocol 1 EACH MISC MISCELLANE PRN (10:01)
[2020-02-12] MEDS: POTASSIUM CHLORIDE 10 MEQ in WATER FOR INJECTION 1 100ML.BAG IVPB SCH ×4 (10:06→15:42)
[2020-02-12] MEDS: THEOPHYLLINE 24 HOUR 200 MG CAP.ER.24H PO SCH (10:09)
[2020-02-12] MEDS: MAGNESIUM SULFATE-D5W PMX 1 GM in DEXTROSE/WATER 1 100ML.BAG IVPB SCH ×3 (11:12→15:09)
[2020-02-12] MEDS: THIAMINE 100 MG TAB PO SCH (11:14)
--- NOTE | 2020-02-12 12:55 | P.CONS ---
History of Present Illness - Reason for Consult Consult date: 02/12/20 wound care - History of Present Illness his is a 79-year-old pleasant gentleman who lives at home with his . Being seen by the wound care center for a nonhealing ulceration to the right gluteus. Patient states that the ulceration has been there for approximately 3 weeks. patient's past medical history significant for atrial fibrillation, coronary artery disease, COPD, hypertension, hyperlipidemia, right lung cancer with wedge resection and chemoradiation, severe pulmonary hypertension, chronic kidney disease stage III. Review of Systems Review Of Systems: Constitutional: No fever, no chills, no night sweats. No weight change. No weakness, fatigue or lethargy. No daytime sleepiness. Integumentary:reports wounds, no lesions. No rash or pruritus. No unusual brui sing. No change in hair or nails. Past Medical History Past Medical History: Atrial Fibrillation, Coronary Artery Disease (CAD), Cancer, Heart Failure, COPD, Hyperlipidemia, Hypertension, Myocardial Infarction (DC), Renal Disease Additional Past Medical History / Comment(s): R lung cancer with wedge resection-no chemo or radiation, severe pulmonary HTN, CKD stage III, anemia,hiatal hernia, constipation/benign polyp, bradycardia. Last Myocardial Infarction Date:: 2002 History of Any Multi-Drug Resistant Organisms: None Reported Past Surgical History: Appendectomy, Coronary Bypass/CABG, Heart Catheterization, Orthopedic Surgery Additional Past Surgical History / Comment(s): 2002 CABG 3 vessel, cardiac angioplasty, R lung wedge resection, R hip closed reduction/ORIF, EGD, colonoscopies/polypectgomies. Past Anesthesia/Blood Transfusion Reactions: No Reported Reaction Additional Past Anesthesia/Blood Transfusion Reaction / Comm: CLAUSTERPHOBIA. Pt has received blood in past without reaction. Smoking Status: Former smoker - Past Family History Father Family Medical History: Cancer Additional Family Medical History / Comment(s): of pancreatic cancer Mother Family Medical History: Diabetes Mellitus Additional Family Medical History / Comment(s): AT AGE 90 WAS IN [facility] FROM OLD AGE Brother(s) Family Medical History: Diabetes Mellitus Additional Family Medical History / Comment(s): 2 BROTHERS HAVE DIABETES Medications and Allergies Home Medications Medication Instructions Recorded Confirmed Type Tiotropium 18 Mcg/Puff [Spiriva] 1 cap INHALATION RT-DAILY 07/13/13 02/09/20 History Nitroglycerin Sl Tabs [Nitrostat] 0.4 mg SUBLINGUAL Q5M PRN 03/19/16 02/09/20 History Ferrous Sulfate [Iron] 325 mg PO TID 11/09/17 02/09/20 History Isosorbide Mononitrate [Isosorbide 30 mg PO BID 11/09/17 02/09/20 History Mononitrate ER] Simvastatin [Zocor] 20 mg PO HS 01/01/18 02/09/20 History Carvedilol [Coreg] 12.5 mg PO BID 03/22/18 02/09/20 History Furosemide [Lasix] 80 mg PO BID 03/22/18 02/09/20 History Ipratropium-Albuterol Nebulize 3 ml INHALATION RT-QID PRN 03/22/18 02/09/20 History [Duoneb 0.5 mg-3 mg/3 ml Soln] metOLazone [Zaroxolyn] 2.5 mg PO Q48H 06/03/18 02/09/20 History Apixaban [Eliquis] 2.5 mg PO BID 09/27/18 02/09/20 History Budesonide-Formot 160-4.5 Mcg 2 puff INHALATION RT-BID 09/25/19 02/09/20 History [Symbicort 160-4.5 Mcg Inhaler] Folic Acid 1 mg PO DAILY 09/25/19 02/09/20 History Ascorbic Acid [Vitamin C] 250 mg PO DAILY 02/09/20 02/09/20 History Multivitamins, Thera [Multivitamin 1 tab PO DAILY 02/09/20 02/09/20 History (formulary)] Potassium Chloride ER [K-Dur 20] 20 meq PO DAILY 02/09/20 02/09/20 History cycloSPORINE 0.05% OPHTH SOLN 1 applicator BOTH EYES Q12H 02/09/20 02/09/20 Hi story [Restasis] Allergies Allergy/AdvReac Type Severity Reaction Status Date / Time No Known Allergies Allergy Verified 02/09/20 11:20 Physical Exam Vitals: Vital Signs Temp Pulse Pulse Pulse Resp BP Pulse Ox 02/12/20 12:15 20 02/12/20 11:34 97.5 F L 37 L 20 113/55 100 02/12/20 08:57 48 L 11/30/20 08:51 45 L 02/12/20 08:25 97.9 F 42 L 18 121/71 99 02/12/20 08:00 18 02/12/20 04:15 94 L 02/12/20 04:00 45 L 18 91/65 88 L 02/12/20 02:00 45 L 18 02/12/20 00:00 97.7 F 39 L 18 112/43 99 02/11/20 20:02 59 L 02/11/20 20:00 97.3 F L 45 L 18 121/56 96 02/11/20 19:54 56 L 02/11/20 16:17 54 L 02/11/20 16:08 56 L 02/11/20 15:25 97.3 F L 52 L 16 125/64 94 L 02/11/20 14:00 16 Intake and Output 02/11/20 02/12/20 02/12/20 22:59 06:59 14:59 Intake Total 60 0 Output Total 400 945 450 Balance -340 -945 -450 Intake: Oral 60 0 Output: Urine 400 945 450 Other: Voiding Method Urinal Urinal Urinal # Voids 1 3 # Bowel Movements 1 Weight 83.3 kg Physical exam: General Appearance: Alert, cooperative, no distress, appears stated age. Skin: full thickness pressure ulcer stage II the right gluteus measuring approximately 0.2 x 0.2 x 0.1 cm granulation seen throughout the wound bed with minimal slough, periwound shows maceration all other Skin color, texture, tugor normal, no rashes or lesions. Neurologic: Alert oriented x3 Results CBC & Chem 7: 02/12/20 08:29 02/12/20 08:29 Labs: Abnormal Lab Results - Last 24 Hours (Table) 02/12/20 02/12/20 02/12/20 Range/Units 08:29 08:29 08:29 WBC 15.8 H (3.8-10.6) k/uL RBC 3.98 L (4.30-5.90) m/uL Hgb 12.4 L (13.0-17.5) gm/dL Hct 37.4 L (39.0-53.0) % Neutrophils # 13.0 H (1.3-7.7) k/uL Potassium 3.0 L (3.5-5.1) mmol/L Carbon Dioxide 33 H (22-30) mmol/L BUN 26 H (9-20) mg/dL Creatinine 1.54 H (0.66-1.25) mg/dL Calcium 8.3 L (8.4-10.2) mg/dL Magnesium 1.5 L (1.6-2.3) mg/dL Microbiology - Last 24 Hours (Table) 02/10/20 04:00 Gram Stain - Final Buttock Wound Culture - Final Methicillin resist S. aureus 02/09/20 11:48 Blood Culture - Preliminary Blood No Growth after 48 hours Assessment and Plan (1) Pressure ulcer of sacral region, stage 2 Current Visit: Yes Status: Acute Code(s): L89.152 - PRESSURE ULCER OF SACRAL REGION, STAGE 2 SNOMED Code(s): 728948524 Plan: apply zinc barrier cream to the site daily. Thank you for the consultation any questions please contact the wound care center DNP note has been reviewed and discussed with Dr. Lemus and the impression and plan of care has been directed as dictated.
--- NOTE | 2020-02-12 13:00 | P.GSCN ---
History of Present Illness Consult date: 02/12/20 History of present illness: CHIEF COMPLAINT: Rectal pain and fecal impaction HISTORY OF PRESENT ILLNESS: This is a 79-year-old male with a past medical history of atrial fibrillation, coronary artery disease status post CABG, CHF, COPD, hypertension, hyperlipidemia. Patient presented to the emergency room with complaints of abdominal pain and back pain. He had been weak and developed ulcers and sores on his buttocks and rectum area. He has been complaining of re ctal pain. Patient is being followed by wound care service in regards to his sacral decubitus ulcers. Patient is also followed by cardiology in regards to bradycardia. Apparently heart rate is running in the 30s to 40s. Per cardiology patient is not a candidate for pacemaker placement. We have been consulted in regards to patient's fecal impaction. He had a computed tomography scan of the abdomen and pelvis showing a small hiatal hernia increased compared to old exam. Cholelithiasis unchanged. Atherosclerotic vascular disease. Rectal fecal impaction appears increased compared to old exam. PAST MEDICAL HISTORY: See list. PAST SURGICAL HISTORY: See list. MEDICATIONS: See list. ALLERGIES: See list. SOCIAL HISTORY: No illicit drug use. REVIEW OF SYSTEMS: CONSTITUTIONAL: Denies fever or chills. HEENT: Denies blurred vision, vision changes, or eye pain. Denies hemoptysis CARDIOVASCULAR: Denies chest pain or pressure. RESPIRATORY: No shortness of breath. GASTROINTESTINAL: See HPI for pertinent findings HEMATOLOGIC: Denies bleeding disorders. GENITOURINARY: Denies any blood in urine or increased urinary frequency. SKIN: Denies pruitis. Denies rash. PHYSICAL EXAM: VITAL SIGNS: Reviewed GENERAL: Well-developed in no acute distress. HEENT: No sclera icterus. Extraocular movements grossly intact. Moist buccal mucosa. Head is atraumatic, normocephalic. No nasal drainage. ABDOMEN: Soft. Nontender. Nondistended. NEUROLOGIC: Alert and oriented. Cranial nerves II through XII grossly intact. LABORATORY DATA: WBC 15.8 hemoglobin 12.4 platelets 194 sodium 142 potassium 3.0 creatinine 1.54 TSH 0.853 IMAGING: computed tomography scan of the abdomen and pelvis showing a small hiatal hernia increased compared to old exam. Cholelithiasis unchanged. Atherosclerotic vascular disease. Rectal fecal impaction appears increased compared to old exam. ASSESSMENT: 1. Rectal fecal impaction with rectal pain 2. Multiple sacral decubitus ulcers followed by wound care service 3. Bradycardia followed by cardiology 4. Acute kidney injury PLAN: -We'll give soapsuds enemas 3 and monitor for rectal fecal impaction -Continue supportive care Thank you for this consultation Physician Brim Curler note has been reviewed by physician. Signing provider agrees with the documented findings, assessment, and plan of care. Past Medical History Past Medical History: Atrial Fibrillation, Coronary Artery Disease (CAD), Ca ncer, Heart Failure, COPD, Hyperlipidemia, Hypertension, Myocardial Infarction (SD), Renal Disease Additional Past Medical History / Comment(s): R lung cancer with wedge resec tion-no chemo or radiation, severe pulmonary HTN, CKD stage III, anemia,hiatal hernia, constipation/benign polyp, bradycardia. Last Myocardial Infarction Date:: 2002 History of Any Multi-Drug Resistant Organisms: None Reported Past Surgical History: Appendectomy, Coronary Bypass/CABG, Heart Catheterization, Orthopedic Surgery Additional Past Surgical History / Comment(s): 2002 CABG 3 vessel, cardiac angioplasty, R lung wedge resection, R hip closed reduction/ORIF, EGD, colonoscopies/polypectgomies. Past Anesthesia/Blood Transfusion Reactions: No Reported Reaction Additional Past Anesthesia/Blood Transfusion Reaction / Comm: CLAUSTERPHOBIA. P t has received blood in past without reaction. Smoking Status: Former smoker - Past Family History Father Family Medical History: Cancer Additional Family Medical History / Comment(s): of pancreatic cancer Mother Family Medical History: Diabetes Mellitus Additional Family Medical History / Comment(s): AT AGE 90 WAS IN [facility] FROM OLD AGE Brother(s) Family Medical History: Diabetes Mellitus Additional Family Medical History / Comment(s): 2 BROTHERS HAVE DIABETES Medications and Allergies Home Medications Medication Instructions Recorded Confirmed Type Tiotropium 18 Mcg/Puff [Spiriva] 1 cap INHALATION RT-DAILY 07/13/13 02/09/20 History Nitroglycerin Sl Tabs [Nitrostat] 0.4 mg SUBLINGUAL Q5M PRN 03/19/16 02/09/20 History Ferrous Sulfate [Iron] 325 mg PO TID 11/09/17 02/09/20 History Isosorbide Mononitrate [Isosorbide 30 mg PO BID 11/09/17 02/09/20 History Mononitrate ER] Simvastatin [Zocor] 20 mg PO HS 01/01/18 02/09/20 History Carvedilol [Coreg] 12.5 mg PO BID 03/22/18 02/09/20 History Furosemide [Lasix] 80 mg PO BID 03/22/18 02/09/20 History Ipratropium-Albuterol Nebulize 3 ml INHALATION RT-QID PRN 03/22/18 02/09/20 History [Duoneb 0.5 mg-3 mg/3 ml Soln] metOLazone [Zaroxolyn] 2.5 mg PO Q48H 06/03/18 02/09/20 History Apixaban [Eliquis] 2.5 mg PO BID 09/27/18 02/09/20 History Budesonide-Formot 160-4.5 Mcg 2 puff INHALATION RT-BID 09/25/19 02/09/20 History [Symbicort 160-4.5 Mcg Inhaler] Folic Acid 1 mg PO DAILY 09/25/19 02/09/20 History Ascorbic Acid [Vitamin C] 250 mg PO DAILY 02/09/20 02/09/20 History Multivitamins, Thera [Multivitamin 1 tab PO DAILY 02/09/20 02/09/20 History (formulary)] Potassium Chloride ER [K-Dur 20] 20 meq PO DAILY 02/09/20 02/09/20 History cycloSPORINE 0.05% OPHTH SOLN 1 applicator BOTH EYES Q12H 02/09/20 02/09/20 History [Restasis] Allergies Allergy/AdvReac Type Severity Reaction Status Date / Time No Known Allergies Allergy Verified 02/09/20 11:20 Surgical - Exam Vital Signs Temp Pulse Resp BP Pulse Ox 97.2 F L 52 L 18 119/49 99 02/09/20 10:26 02/09/20 10:26 02/09/20 10:26 02/09/20 10:26 02/09/20 10:26 Results - Labs 02/12/20 08:29 02/12/20 08:29 Abnormal Lab Results - Last 24 Hours (Table) 02/12/20 02/12/20 02/12/20 Range/Units 08:29 08:29 08:29 WBC 15.8 H (3.8-10.6) k/uL RBC 3.98 L (4.30-5.90) m/uL Hgb 12.4 L (13.0-17.5) gm/dL Hct 37.4 L (39.0-53.0) % Neutrophils # 13.0 H (1.3-7.7) k/uL Potassium 3.0 L (3.5-5.1) mmol/L Carbon Dioxide 33 H (22-30) mmol/L BUN 26 H (9-20) mg/dL Creatinine 1.54 H (0.66-1.25) mg/dL Calcium 8.3 L (8.4-10.2) mg/dL Magnesium 1.5 L (1.6-2.3) mg/dL Microbiology - Last 24 Hours (Table) 02/10/20 04:00 Gram Stain - Final Buttock Wound Culture - Final Methicillin resist S. aureus 02/09/20 11:48 Blood Culture - Preliminary Blood No Growth after 48 hours Diabetes panel 02/12/20 Range/Units 08:29 Sodium 142 (137-145) mmol/L Potassium 3.0 L (3.5-5.1) mmol/L Chloride 101 (98-107) mmol/L Carbon Dioxide 33 H (22-30) mmol/L BUN 26 H (9-20) mg/dL Creatinine 1.54 H (0.66-1.25) mg/dL Glucose 99 (74-99) mg/dL Calcium 8.3 L (8.4-10.2) mg/dL Thyroid panel 02/12/20 Range/Units 08:29 TSH 0.853 (0.465-4.680) mIU/L Calcium panel 02/12/20 Range/Units 08:29 Calcium 8.3 L (8.4-10.2) mg/dL Pituitary panel 02/12/20 Range/Units 08:29 Sodium 142 (137-145) mmol/L Potassium 3.0 L (3.5-5.1) mmol/L Chloride 101 (98-107) mmol/L Carbon Dioxide 33 H (22-30) mmol/L BUN 26 H (9-20) mg/dL Creatinine 1.54 H (0.66-1.25) mg/dL Glucose 99 (74-99) mg/dL Calcium 8.3 L (8.4-10.2) mg/dL TSH 0.853 (0.465-4.680) mIU/L Adrenal panel 02/12/20 Range/Units 08:29 Sodium 142 (137-145) mmol/L Potassium 3.0 L (3.5-5.1) mmol/L Chloride 101 (98-107) mmol/L Carbon Dioxide 33 H (22-30) mmol/L BUN 26 H (9-20) mg/dL Creatinine 1.54 H (0.66-1.25) mg/dL Glucose 99 (74-99) mg/dL Calcium 8.3 L (8.4-10.2) mg/dL
[2020-02-12] MEDS ORDERED: RX INFO: IV CONTRAST WAS GIVEN 1 EACH MISC MISCELLANE PRN (14:37)
[2020-02-12] MEDS ORDERED: MAGNESIUM OXIDE 400 MG TAB PO SCH (14:37)
--- NOTE | 2020-02-12 16:59 | PN ---
PROGRESS NOTE DATE OF SERVICE: 02/12/2020 This is a 79-year-old gentleman who was admitted with multiple sacral decubitus ulcers, also had rectal pain. The patient is found to have significant constipation. The patient also had multiple episodes of ventricular tachycardia, also the patient will be closely monitored. Cardiology following the patient closely. Cholelithiasis noted in the CAT scan. The patient is also seen in the wound care and as well as surgical consultation, also. The patient also has some bradycardia. The patient is being closely monitored. Patient continues to be mildly confused. PAST MEDICAL HISTORY: Reviewed. REVIEW OF SYSTEM: Could not be taken. CURRENT MEDICATIONS: Reviewed and include: Tylenol, [place] 10 mg., DuoNeb, Xanax, Eliquis, vitamin C, Lipitor, Symbicort, cyclosporine, folic acid, Dilaudid, Imdur, Ativan replacement protocol. PHYSICAL EXAM: Patient is alert and oriented x3, pulse is 48, blood pressure 113/50, respiration 20, temperature is 97.2, pulse ox 100% on 2 L. HEENT: Conjunctivae normal. NECK: No jugular venous distension. CARDIOVASCULAR: S1, S2, muffled. RESPIRATION: Breath sounds diminished a the bases, a few scattered rhonchi, no crackles. ABDOMEN: Soft, nontender. LEGS: No edema, swelling. NERVOUS SYSTEM: No focal deficits. LABS: At this time shows WBC 15.8, hemoglobin 12.4, sodium 142, potassium 3, magnesium is 1.5. ASSESSMENT: 1. Multiple sacral decubitus with severe pain with surrounding cellulitis. 2. Atrial fibrillation with bradycardia. 3. Nonsustained ventricular tachycardia. 4. Rectal pain and fecal impaction. 5. Change in mental status with acute metabolic encephalopathy, multifactorial with possible sepsis. 6. Gait dysfunction. 7. Atrial fibrillation with bradycardia. 8. Severe hypokalemia. 9. Severe hypomagnesemia. 10.Generalized asthenia. 11.Troponin 0.07, rule out acute min-PC-lhhjdvy-elevation myocardial infarction. 12.Hypokalemia. 13.Increased bilirubin. 14.Anemia, normocytic possibly nutritional. 15.History of atrial fibrillation, chronic. 16.CAD. 17.CHF with chronic diastolic dysfunction. 18.COPD. 19.Asthma. 20.Hypertension. 21.Hyperlipidemia. 22.History of myocardial infarction. 23.History of right lung cancer with wedge resection. 24.History of severe pulmonary hypertension. 25.Chronic kidney disease, stage 3. 26.History of CAD, CABG. 27.Claustrophobia. 28.Remote history of nicotine dependence. 29.Acute renal failure. 30.FULL CODE. RECOMMENDATION: In this 79-year-old gentleman who presented with multiple complex medical issues, at this time I recommend to continue the current management and symptomatic treatment. Otherwise, at this time, supplement potassium, magnesium and repeat labs. Calcium is improved at this time. Closely follow with Cardiology. Guarded prognosis because will put around the clock magnesium as well. Otherwise, follow closely with Cardiology. Antibiotics. Surgical evaluation. Guarded prognosis. Further recommendations to follow. Patient has PT, OT evaluation, to evaluate for ECF rehab. Overall prognosis extremely guarded because of multiple complex medical issues as detailed above. MMODL / IJN: [id number] /
--- NOTE | 2020-02-12 17:06 | P.PN ---
Subjective Progress Note Date: 02/12/20 This is a 79-year-old gentleman with history of ischemic heart disease and previous bypass surgery was dropped off by family because patient was aggressive and difficult to manage at home. He is also has history of atrial fibrillation. He was on beta evreton in the form of Coreg. Coreg was held and patient continued to have bradycardia arrhythmias with rates in the range of 35-45. Patient is not having any dizziness or syncopal episodes. He is having significant sacral ulcers and diabetes, ulcers. In view of ongoing infections, etc. felt that patient is not a good candidate for permanent pacemaker. Today patient has been having episodes of nonsustained V. tach in the form of polymorphic V. tach. His QT interval is prolonged. His potassium levels are low, in spite of potassium replacement. Magnesium level is slightly low. I discussed briefly with the patient about pacemaker. Patient doesn't want to have any pacemaker. If patient continues to have these nonsustained polymorphic V. tach in spite of potassium and magnesium supplements, may consider temporary pacemaker. However, his prognosis is poor, considering multiple issues. Patient is also suffering from fecal impaction and has been sitting on the toilet most of the time. Objective - Vital Signs Vital signs: Vital Signs Temp 98.0 F 02/12/20 16:00 Pulse 35 L 02/12/20 16:00 Resp 20 02/12/20 16:00 BP 114/42 02/12/20 16:00 Pulse Ox 100 02/12/20 16:00 Intake & Output 02/11/20 02/12/20 02/12/20 18:59 06:59 18:59 Intake Total 530 0 Output Total 350 1345 450 Balance 180 -1345 -450 Weight 83.3 kg Intake: Intake, IV Titration 350 Amount Piperacillin-Tazobactam 3 100 .375 gm In Sodium Chloride 0.9% 100 ml @ 25 mls/hr IVPB Q8HR [facility] Rx# :[id number] Vancomycin 1,500 mg In 250 Sodium Chloride 0.9% 250 ml @ 125 mls/hr IVPB Q16H [facility] Rx#:[id number] Oral 180 0 Output: Urine 350 1345 450 Other: Voiding Method Urinal Urinal Urinal # Voids 3 # Bowel Movements 1 - Exam GENERAL EXAM: Patient is alert and oriented and appears to be in distress because of abdominal discomfort. HEENT: Normocephalic. NECK: No masses, no nuchal rigidity. CHEST: No chest wall deformity. LUNGS: Equal air entry with no crackles or wheeze. HEART: S1 and S2 normal. Regular heart sounds ABDOMEN: As per surgical exam SKIN: No rashes CENTRAL NERVOUS SYSTEM: No focal deficits. EXTREMITIES: No cyanosis, clubbing or edema. - Labs CBC & Chem 7: 02/12/20 08:29 02/12/20 08:29 Labs: Abnormal Lab Results - Last 24 Hours (Table) 02/12/20 02/12/20 02/12/20 Range/Units 08:29 08:29 08:29 WBC 15.8 H (3.8-10.6) k/uL RBC 3.98 L (4.30-5.90) m/uL Hgb 12.4 L (13.0-17.5) gm/dL Hct 37.4 L (39.0-53.0) % Neutrophils # 13.0 H (1.3-7.7) k/uL Potassium 3.0 L (3.5-5.1) mmol/L Carbon Dioxide 33 H (22-30) mmol/L BUN 26 H (9-20) mg/dL Creatinine 1.54 H (0.66-1.25) mg/dL Calcium 8.3 L (8.4-10.2) mg/dL Magnesium 1.5 L (1.6-2.3) mg/dL Microbiology - Last 24 Hours (Table) 02/09/20 11:48 Blood Culture - Preliminary Blood No Growth after 72 hours 02/10/20 04:00 Gram Stain - Final Buttock Wound Culture - Final Methicillin resist S. aureus Assessment and Plan (1) Fecal impaction Current Visit: Yes Status: Acute Code(s): K56.41 - FECAL IMPACTION SNOMED Code(s): 33853155 (2) Bradycardia Current Visit: Yes Status: Acute Code(s): R00.1 - BRADYCARDIA, UNSPECIFIED SNOMED Code(s): 59417222 (3) Debilitated patient Current Visit: Yes Status: Acute Code(s): R53.81 - OTHER MALAISE SNOMED Code(s): 84728680 (4) Decubitus ulcer of sacral area Current Visit: Yes Status: Acute Code(s): L89.159 - PRESSURE ULCER OF SACRAL REGION, UNSPECIFIED STAGE SNOMED Code(s): 363334921 (5) Hypokalemia Current Visit: Yes Status: Acute Code(s): E87.6 - HYPOKALEMIA SNOMED Code(s): 05559300 (6) Ventricular tachycardia Current Visit: Yes Status: Acute Code(s): I47.2 - VENTRICULAR TACHYCARDIA SNOMED Code(s): 60722766 Plan: This patient is having significant problem with fecal impaction. He is also having significant hypokalemia. I is continued IV diuretics and also metolazone. We will continue to replace potassium and magnesium. Hopefully, that will correct his QT prolongation and stop the nonsustained V. tach which are polymorphic. If necessary, may consider temporary pacemaker. Patient is not a good candidate for permanent pacemaker because of decubitus ulcers and infection. Patient however doesn't want to have a pacemaker. Prognosis is poor.
--- NOTE | 2020-02-12 18:40 | CT ---
EXAMINATION TYPE: CT brain wo con DATE OF EXAM: 02/12/2020 COMPARISON: Prior CT brain 09/02/2019 HISTORY: Weakness and altered mental status. Abnormal head CT CT DLP: 1178.4 mGycm Automated exposure control for dose reduction was used. FINDINGS: Periventricular white matter shows patchy low attenuation. Focal low attenuation in the head of the c audate is again noted. Ventricles show a stable appearance. There is no hemorrhage. Calvarium is inta ct. Cortical atrophy again seen. IMPRESSION: NO ACUTE ABNORMALITY. AGE-RELATED CHANGES OF ATROPHY AND CHRONIC SMALL VESSEL ISCHEMIA. Consider brai n MRI.
[2020-02-12 20:23] LABS: Magnesium 2.4 mg/dL (1.6-2.3)
[2020-02-12] MEDS: ATORVASTATIN 10 MG TAB PO SCH (20:33)
[2020-02-12] MEDS: MAGNESIUM OXIDE 400 MG TAB PO SCH (20:33)
[2020-02-13] MEDS: IPRATROPIUM 0.5 MG/2.5 ML NEBU INHALATION SCH ×4 (08:03→20:24)
[2020-02-13] MEDS: SYMBICORT 160-4.5 MCG INHALER INHALATION SCH ×2 (08:03→20:24)
[2020-02-13] MEDS: FOLIC ACID 1 MG TAB PO SCH (08:17)
[2020-02-13] MEDS: MULTIVITAMINS, THERA 1 EACH TAB PO SCH (08:17)
[2020-02-13] MEDS: ISOSORBIDE MONONITRATE ER 30 MG TAB.ER.24H PO SCH ×2 (08:17→20:40)
[2020-02-13] MEDS: POTASSIUM CHLORIDE ER 20 MEQ TAB.ER PO SCH ×2 (08:17→20:39)
[2020-02-13] MEDS: FERROUS SULFATE 325 MG TAB PO SCH ×3 (08:17→20:39)
[2020-02-13] MEDS: APIXABAN 2.5 MG TABLET PO SCH ×2 (08:17→20:40)
[2020-02-13] MEDS: MAGNESIUM OXIDE 400 MG TAB PO SCH ×2 (08:17→20:39)
[2020-02-13] MEDS: THEOPHYLLINE 24 HOUR 200 MG CAP.ER.24H PO SCH (08:18)
[2020-02-13] MEDS: cycloSPORINE 0.05% OPHTH 0.4 ML DROPERETTE BOTH EYES SCH ×2 (08:18→20:39)
[2020-02-13] MEDS: PANTOPRAZOLE 40 MG TABLET PO SCH (08:18)
[2020-02-13] MEDS: ASCORBIC ACID 500 MG TAB PO SCH (08:18)
[2020-02-13] MEDS: PIPERACILLIN-TAZOBACTAM 3.375 GM in SODIUM CHLORIDE 0.9% 100 ML IVPB SCH ×3 (08:19→23:35)
[2020-02-13] MEDS ORDERED: VANCOMYCIN TROUGH DUE 1 EACH MISC MISCELLANE ONE (09:00)
[2020-02-13 09:03] LABS: Magnesium 2.2 mg/dL (1.6-2.3); Potassium 3.2 mmol/L (3.5-5.1)
[2020-02-13] MEDS: THIAMINE 100 MG TAB PO SCH (11:19)
[2020-02-13] MEDS: SPIRONOLACTONE 25 MG TAB PO SCH (11:19)
--- NOTE | 2020-02-13 11:23 | P.PN ---
Subjective Progress Note Date: 02/13/20 This is a 79-year-old gentleman with history of ischemic heart disease and prior bypass surgery, who was initially dropped off at the hospital because of aggressive behavior, and being difficult to manage at home. Patient does have a history of atrial fibrillation and was on beta everton in the form of Coreg. The Coreg was held because of significant bradycardia arrhythmias. This morning he continues to have a heart rate in the mid to high 40s. He is not having any dizziness or syncope. He does have significant sacral ulcers as well as diabetes. In view of the infections patient is not a good candidate for pacemaker, and he actually refuses any form of pacemaker. Patient was also having runs of nonsustained ventricular tachycardia, in the last 24 hours he is having some PVCs but no runs of ventricular tachycardia. Patient also has a low potassium, which continues to be low in spite of replacement. It is 3.2 this morning. His magnesium level is much improved today. Patient is getting more potassium supplementation, we will also add Aldactone to his medication regime and recommended consultation with nephrology. Objective - Vital Signs Vital signs: Vital Signs Temp 97.9 F 02/13/20 11:16 Pulse 42 L 02/13/20 11:16 Resp 16 02/13/20 11:16 BP 123/43 02/13/20 11:16 Pulse Ox 97 02/13/20 11:16 Intake & Output 02/12/20 02/13/20 02/13/20 18:59 06:59 18:59 Intake Total 0 120 Output Total 450 1000 Balance -450 -880 Weight 84.7 kg Intake: Oral 0 120 Output: Urine 450 1000 Other: Voiding Method Urinal Urinal Urinal # Bowel Movements 0 - Exam GENERAL EXAM: Patient is alert and oriented and appears to be in distress because of abdominal discomfort. HEENT: Normocephalic. NECK: No masses, no nuchal rigidity. CHEST: No chest wall deformity. LUNGS: Equal air entry with no crackles or wheeze. HEART: S1 and S2 normal. Regular heart sounds ABDOMEN: As per surgical exam SKIN: No rashes CENTRAL NERVOUS SYSTEM: No focal deficits. EXTREMITIES: No cyanosis, clubbing or edema. - Labs CBC & Chem 7: 02/12/20 08:29 02/13/20 07:40 Labs: Abnormal Lab Results - Last 24 Hours (Table) 02/12/20 02/13/20 Range/Units 20:02 07:40 Potassium 3.0 L 3.2 L (3.5-5.1) mmol/L Creatinine 1.33 H (0.66-1.25) mg/dL Magnesium 2.4 H (1.6-2.3) mg/dL Microbiology - Last 24 Hours (Table) 02/09/20 11:48 Blood Culture - Preliminary Blood No Growth after 72 hours 02/10/20 04:00 Gram Stain - Final Buttock Wound Culture - Final Methicillin resist S. aureus Assessment and Plan Plan: Assessment and plan #1 sinus bradycardia, patient not a candidate for pacemaker implantation because of infections. Patient refuses any implantation of a pacemaker anyway. #2 hypokalemia, persistent in spite of replacement therapy #3 hypomagnesemia, replaced #4 persistent atrial fibrillation #5 diastolic congestive heart failure acute on chronic #6 nonsustained ventricular tachycardiac, likely related to hypokalemia, no further V. tach in the past 12 hours #7 coronary artery disease with prior bypass surgery #8 hypertension #9 hyperlipidemia #10 COPD Plan We will add Aldactone to the patient's medication regime, continue to replace potassium. We will also request nephrology to see the patient for the persistent hypokalemia. DNP note has been reviewed, I agree with a documented findings and plan of care. Patient was seen and examined.
[2020-02-13] MEDS ORDERED: Potassium Replacement Protocol 1 EACH MISC MISCELLANE PRN (12:26)
--- NOTE | 2020-02-13 12:39 | P.PN ---
Subjective Progress Note Date: 02/13/20 CHIEF COMPLAINT: Rectal pain and fecal impaction HISTORY OF PRESENT ILLNESS: Patient is being followed for fecal impaction. He was given soapsuds enemas yesterday and did have a soft bowel movement. Patient reports his rectal pain has resolved. He denies any nausea or vomiting. He is tolerating diet. He is followed by cardiology for his bradycardia. Afebrile. WBC 15.8 potassium 3.2 PHYSICAL EXAM: VITAL SIGNS: Reviewed. GENERAL: Well-developed in no acute distress. HEENT: No sclera icterus. Extraocular movements grossly intact. Moist buccal mucosa. Head is atraumatic, normocephalic. ABDOMEN: Soft. Nondistended. Nontender. NEUROLOGIC: Alert and oriented. Cranial nerves II through XII grossly intact. ASSESSMENT: 1. Rectal fecal impaction with rectal pain showing improvement 2. Multiple sacral decubitus ulcers followed by wound care service 3. Bradycardia followed by cardiology 4. Acute kidney injury 5. Hypokalemia patient receiving supplement 6. Hypomagnesemia resolved PLAN: -We'll give lactulose 30 mL one every hour 4 -Continue supportive care Physician Freight Adjuster note has been reviewed by physician. Signing provider agrees with the documented findings, assessment, and plan of care. Objective - Vital Signs Vital signs: Vital Signs Temp 97.9 F 02/13/20 11:16 Pulse 42 L 02/13/20 11:16 Resp 16 02/13/20 11:16 BP 123/43 02/13/20 11:16 Pulse Ox 97 02/13/20 11:16 Intake & Output 02/12/20 02/13/20 02/13/20 18:59 06:59 18:59 Intake Total 0 120 Output Total 450 1000 Balance -450 -880 Weight 84.7 kg Intake: Oral 0 120 Output: Urine 450 1000 Other: Voiding Method Urinal Urinal Urinal # Bowel Movements 0 - Labs CBC & Chem 7: 02/12/20 08:29 02/13/20 07:40 Labs: Abnormal Lab Results - Last 24 Hours (Table) 02/12/20 02/13/20 Range/Units 20:02 07:40 Potassium 3.0 L 3.2 L (3.5-5.1) mmol/L Creatinine 1.33 H (0.66-1.25) mg/dL Magnesium 2.4 H (1.6-2.3) mg/dL Microbiology - Last 24 Hours (Table) 02/09/20 11:48 Blood Culture - Preliminary Blood No Growth after 72 hours 02/10/20 04:00 Gram Stain - Final Buttock Wound Culture - Final Methicillin resist S. aureus
--- NOTE | 2020-02-13 12:42 | P.NPCON ---
History of Present Illness - Reason for Consult acute renal failure - History of Present Illness Reason for consultation: Acute kidney injury and electrolyte imbalance History of present illness: Patient is a 79-year-old male seen in renal consultation for acute kidney injury and electrolyte imbalance. Patient presented to the hospital on 02/09/2020 due to pain in his rectum and buttocks. Patient had been quite weak at home. His potassium was 2.7 on admission which was being replaced. It is 3.2 this morning. He was taking Lasix as well as metolazone at home and his oral intake had been poor prior to admission. Lasix was stopped 2 days ago and he is now on spironolactone. He is also maintained on oral potassium supplementation. Blood pressure is stable. Echocardiogram revealed preserved ejection fraction. Denies edema. Has been voiding. Patient does have a wound on his buttock with culture positive for MRSA. He is maintained on vancomycin. Vancomycin level this morning was 24.7. Patient's baseline creatinine is near 1 and peaked at 1.54 this admission. It is 1.33 today. He denies regular use of nonsteroidals. No history of diabetes. No acute abnormality noted on CAT scan. Vital signs are stable. General: The patient appeared well nourished and normally developed. HEENT: Head exam is unremarkable. Neck is without jugular venous distension. LUNGS: Breath sounds decreased. HEART: Rate and Rhythm are regular. ABDOMEN: Soft, nontender. EXTREMITITES: No edema. Past Medical History Past Medical History: Atrial Fibrillation, Coronary Artery Disease (CAD), Cancer, Heart Failure, COPD, Hyperlipidemia, Hypertension, Myocardial Infarction ([place]), Renal Disease Additional Past Medical History / Comment(s): R lung cancer with wedge resection-no chemo or radiation, severe pulmonary HTN, CKD stage III, anemia ,hiatal hernia, constipation/benign polyp, bradycardia. Last Myocardial Infarction Date:: 2002 History of Any Multi-Drug Resistant Organisms: MRSA Date of last positivie culture/infection: 02/10/20 MDRO Source:: Buttock Past Surgical History: Appendectomy, Coronary Bypass/CABG, Heart Catheterization, Orthopedic Surgery Additional Past Surgical History / Comment(s): 2002 CABG 3 vessel, cardiac angioplasty, R lung wedge resection, R hip closed reduction/ORIF, EGD, colonoscopies/polypectgomies. Past Anesthesia/Blood Transfusion Reactions: No Reported Reaction Additional Past Anesthesia/Blood Transfusion Reaction / Comment(s): CLAUSTERPHOBIA. Pt has received blood in past without reaction. Smoking Status: Former smoker - Past Family History Father Family Medical History: Cancer Additional Family Medical History / Comment(s): of pancreatic cancer Mother Family Medical History: Diabetes Mellitus Additional Family Medical History / Comment(s): AT AGE 90 WAS IN PRETTY GOOD HEALTH FROM OLD AGE Brother(s) Family Medical History: Diabetes Mellitus Additional Family Medical History / Comment(s): 2 BROTHERS HAVE DIABETES Medications and Allergies Home Medications Medication Instructions Recorded Confirmed Type Tiotropium 18 Mcg/Puff [Spiriva] 1 cap INHALATION RT-DAILY 07/13/13 02/09/20 History Nitroglycerin Sl Tabs [Nitrostat] 0.4 mg SUBLINGUAL Q5M PRN 03/19/16 02/09/20 History Ferrous Sulfate [Iron] 325 mg PO TID 11/09/17 02/09/20 History Isosorbide Mononitrate [Isosorbide 30 mg PO BID 11/09/17 02/09/20 History Mononitrate ER] Simvastatin [Zocor] 20 mg PO HS 01/01/18 02/09/20 History Carvedilol [Coreg] 12.5 mg PO BID 03/22/18 02/09/20 History Furosemide [Lasix] 80 mg PO BID 03/22/18 02/09/20 History Ipratropium-Albuterol Nebulize 3 ml INHALATION RT-QID PRN 03/22/18 02/09/20 His tory [Duoneb 0.5 mg-3 mg/3 ml Soln] metOLazone [Zaroxolyn] 2.5 mg PO Q48H 06/03/18 02/09/20 History Apixaban [Eliquis] 2.5 mg PO BID 09/27/18 02/09/20 History Budesonide-Formot 160-4.5 Mcg 2 puff INHALATION RT-BID 09/25/19 02/09/20 History [Symbicort 160-4.5 Mcg Inhaler] Folic Acid 1 mg PO DAILY 09/25/19 02/09/20 History Ascorbic Acid [Vitamin C] 250 mg PO DAILY 02/09/20 02/09/20 History Multivitamins, Thera [Multivitamin 1 tab PO DAILY 02/09/20 02/09/20 History (formulary)] Potassium Chloride ER [K-Dur ] 20 meq PO DAILY 02/09/20 02/09/20 History cycloSPORINE 0.05% OPHTH SOLN 1 applicator BOTH EYES Q12H 02/09/20 02/09/20 History [Restasis] Allergies Allergy/AdvReac Type Severity Reaction Status Date / Time No Known Allergies Allergy Verified 02/09/20 11:20 Physical Exam Vitals: Vital Signs Temp Pulse Pulse Pulse Resp BP Pulse Ox 02/13/20 11:16 97.9 F 42 L 16 123/43 97 02/13/20 08:12 97.7 F 44 L 18 123/56 96 02/13/20 08:04 40 L 02/13/20 08:00 44 L 18 02/13/20 04:00 96.9 F L 38 L 18 119/55 97 02/13/20 02:00 36 L 18 02/13/20 00:00 96.8 F L 36 L 18 111/56 98 02/12/20 20:25 60 02/12/20 20:16 50 L 02/12/20 20:00 96.7 F L 44 L 44 L 18 135/60 100 02/12/20 16:00 98.0 F 35 L 20 114/42 100 02/12/20 15:41 46 L 02/12/20 15:32 46 L Intake and Output 02/12/20 02/13/20 02/13/20 22:59 06:59 14:59 Intake Total 120 Output Total 400 600 Balance -280 -600 Intake: Oral 120 Output: Urine 400 600 Other: Voiding Method Urinal Urinal Urinal # Bowel Movements 0 Weight 84.7 kg Results - Lab Results Most recent lab results Calcium 8.3 mg/dL (8.4-10.2) L 02/12/20 08:29 Magnesium 2.2 mg/dL (1.6-2.3) 02/13/20 07:40 02/12/20 08:29 02/13/20 07:40 Assessment and Plan Plan: Assessment: 1. Acute kidney injury mostly prerenal secondary to diuresis. Creatinine peaked at 1.54 this admission and is 1.33 today. Baseline creatinine near 1. U A fairly benign. 2. Wound on the buttock with culture positive for MRSA maintained on vancomycin. 3. Hypokalemia secondary to diuresis. Magnesium was also on the lower side as of yesterday which was replaced. 4. Hypomagnesemia secondary to diuretics. Improved posterior placement. 5. Chronic diastolic CHF. 6. Bradycardia. Cardiology following. Patient was refusing pacemaker. Plan: Replace potassium. 60 mEq total today. Hold Lasix. Maintain spironolactone. Check urine potassium. Avoid nephrotoxins. Monitor vancomycin levels. Dose to be adjusted for renal function. Repeat electrolytes in the morning. Thank you for the consultation. I will continue to follow the patient with you during his hospital stay.
[2020-02-13] MEDS: LACTULOSE 20 GM/30 ML CUP PO SCH ×4 (12:45→14:59)
[2020-02-13] MEDS ORDERED: POTASSIUM CHLORIDE ER 20 MEQ TAB.ER PO SCH (13:00)
--- NOTE | 2020-02-13 16:40 | PN ---
PROGRESS NOTE DATE OF SERVICE: 02/13/2020 This is a 79-year-old gentleman who was admitted with multiple medical abnormalities, also complains of rectal pain. Patient found to have considerable constipation. Surgery is following the patient closely. Patient also had severe bradycardia with atrial fibrillation. Nephrology is also following the patient closely. Cardiology saw the patient and thought that the patient is not a candidate for pacemaker implantation because of infections and patient refuses any implantation anyway, so that conservative line of management is continued. PT, OT is evaluating the patient closely and ECF rehab is also being contemplated. CT of the brain was done to complete the workup which showed no acute abnormality. Age-related abnormality was noted. PAST MEDICAL HISTORY: Reviewed. REVIEW OF SYSTEMS: CARDIOVASCULAR SYSTEM: No angina. RESPIRATION: As mentioned earlier. GI: As mentioned earlier. : No dysuria. NERVOUS SYSTEM: No numbness or weakness. CURRENT MEDICATIONS: Reviewed and include: Tylenol, Mulga 5 mg, Xanax, Eliquis, vitamin C. Doses are reviewed. PHYSICAL EXAMINATION: Patient alert and oriented x2. Pulse 42, blood pressure 120/43, respirations 16, temperature 97.2, pulse ox 97% on 2 L. HEENT: Conjunctivae normal. NECK: No jugular venous distension. CARDIOVASCULAR SYSTEM: S1, S2, muffled. RESPIRATION: Breath sounds diminished at the bases, a few scattered rhonchi, no crackles. ABDOMEN: Soft, nontender. LEGS: No edema. No swelling. NERVOUS SYSTEM: No focal deficits. LABS: WBC 15.8, hemoglobin 12.2, potassium 3.2, creatinine is 1.33. Magnesium is normalized at 2.2, vancomycin 24.7. ASSESSMENT: 1. Multiple sacral decubitus with severe pain with surrounding cellulitis. 2. Atrial fibrillation with severe bradycardia. 3. History of nonsustained ventricular tachycardia. 4. Rectal pain and fecal impaction. 5. Change in mental status, acute metabolic encephalopathy multifactorial with possible sepsis, present on admission. 6. Gait dysfunction. 7. Atrial fibrillation with bradycardia. 8. Severe hypokalemia. 9. Severe hypomagnesemia. 10.Generalized asthenia. 11.Troponin 0.07, unlikely to be acute coronary event per Cardiology. 12.Hypokalemia. 13.Increased bilirubin. 14.Anemia, normocytic possibly multifactorial. 15.History of atrial fibrillation, chronic. 16.History of CAD. 17.CHF with chronic diastolic dysfunction. 18.History of COPD, asthma. 19.Hypertension. 20.Hyperlipidemia. 21.History of myocardial infarction. 22.History of right lung cancer with wedge resection. 23.History of severe pulmonary hypertension. 24.Chronic kidney stage 3. 25.History of CAD, CABG. 26.Claustrophobia. 27.Remote history of nicotine dependence. 28.Acute renal failure. 29.FULL CODE. RECOMMENDATION: In this 79-year-old gentleman who presented with multiple complex medical issues, recommend to continue the current management and symptomatic treatment, otherwise, the patient is not a candidate for pacemaker placement. Otherwise, will continue to monitor. Avoid beta blockers. Continue to supplement the lytes closely. Closely follow with Cardiology. Otherwise PT, OT evaluation, possible ECF rehab. Guarded prognosis. Further recommendations to follow. ARJUN / KATE: [id number] /
[2020-02-13] MEDS ORDERED: VANCOMYCIN 1,500 MG in SODIUM CHLORIDE 0.9% 250 ML IVPB SCH (20:00)
[2020-02-13] MEDS: ATORVASTATIN 10 MG TAB PO SCH (20:39)
[2020-02-14 04:21] VITALS: TEMP 97.9
[2020-02-14 08:25] LABS: Calcium 7.7 mg/dL (8.4-10.2); Potassium 3.9 mmol/L (3.5-5.1)
[2020-02-14] MEDS: SYMBICORT 160-4.5 MCG INHALER INHALATION SCH (08:30)
[2020-02-14] MEDS: IPRATROPIUM 0.5 MG/2.5 ML NEBU INHALATION SCH ×2 (08:30→11:37)
[2020-02-14] MEDS: PANTOPRAZOLE 40 MG TABLET PO SCH (08:59)
[2020-02-14] MEDS: SPIRONOLACTONE 25 MG TAB PO SCH (08:59)
[2020-02-14] MEDS: MAGNESIUM OXIDE 400 MG TAB PO SCH (08:59)
[2020-02-14] MEDS: THEOPHYLLINE 24 HOUR 200 MG CAP.ER.24H PO SCH (08:59)
[2020-02-14] MEDS: MULTIVITAMINS, THERA 1 EACH TAB PO SCH (09:00)
[2020-02-14] MEDS: POTASSIUM CHLORIDE ER 20 MEQ TAB.ER PO SCH (09:00)
[2020-02-14] MEDS: THIAMINE 100 MG TAB PO SCH (09:00)
[2020-02-14] MEDS: APIXABAN 2.5 MG TABLET PO SCH (09:00)
[2020-02-14] MEDS: cycloSPORINE 0.05% OPHTH 0.4 ML DROPERETTE BOTH EYES SCH (09:00)
[2020-02-14] MEDS: FERROUS SULFATE 325 MG TAB PO SCH (09:00)
[2020-02-14] MEDS: ASCORBIC ACID 500 MG TAB PO SCH (09:00)
[2020-02-14] MEDS: ISOSORBIDE MONONITRATE ER 30 MG TAB.ER.24H PO SCH (09:00)
[2020-02-14] MEDS: PIPERACILLIN-TAZOBACTAM 3.375 GM in SODIUM CHLORIDE 0.9% 100 ML IVPB SCH (09:01)
[2020-02-14] MEDS: FOLIC ACID 1 MG TAB PO SCH (09:01)
--- NOTE | 2020-02-14 09:27 | P.PN ---
Subjective Progress Note Date: 02/14/20 This is a 79-year-old gentleman with history of ischemic heart disease and prior bypass surgery, who was initially dropped off at the hospital because of aggressive behavior, and being difficult to manage at home. Patient does have a history of atrial fibrillation and was on beta everton in the form of Coreg. The Coreg was held because of significant bradycardia arrhythmias. This morning he continues to have a heart rate in the mid to high 40s. He is not having any dizziness or syncope. He does have significant sacral ulcers as well as diabetes. In view of the infections patient is not a good candidate for pacemaker, and he actually refuses any form of pacemaker. Patient was also having runs of nonsustained ventricular tachycardia, in the last 24 hours he is having some PVCs but no runs of ventricular tachycardia. Patient also has a low potassium, which continues to be low in spite of replacement. It is 3.2 this morning. His magnesium level is much improved today. Patient is getting more potassium supplementation, we will also add Aldactone to his medication regime and recommended consultation with nephrology. 02-14-2020 Patient was seen and examined this morning, overall he does state that he's feeling better, he's complaining of some burning with urination this morning. Blood pressure 158/60 with a heart rate in the 60s to 80s, 97% on room air. Sodium 138, potassium 3.9, BUN 17, creatinine 1.2. Objective - Vital Signs Vital signs: Vital Signs Temp 97.9 F 02/14/20 04:00 Pulse 64 02/14/20 08:41 Resp 18 02/14/20 04:00 BP 159/67 02/14/20 04:00 Pulse Ox 97 02/14/20 04:00 Intake & Output 02/13/20 02/14/20 02/14/20 18:59 06:59 18:59 Intake Total 600 240 Output Total 200 3 Balance 400 237 Weight 93 kg Intake: Oral 600 240 Output: Urine 200 3 Other: Voiding Method Urinal Urinal # Voids 540 # Bowel Movements 3 - Exam GENERAL EXAM: Patient is alert and oriented and appears to be in distress because of abdominal discomfort. HEENT: Normocephalic. NECK: No masses, no nuchal rigidity. CHEST: No chest wall deformity. LUNGS: Equal air entry with no crackles or wheeze. HEART: S1 and S2 normal. Regular heart sounds ABDOMEN: As per surgical exam SKIN: No rashes CENTRAL NERVOUS SYSTEM: No focal deficits. EXTREMITIES: No cyanosis, clubbing or edema. - Labs CBC & Chem 7: 02/12/20 08:29 02/14/20 07:02 Labs: Abnormal Lab Results - Last 24 Hours (Table) 02/14/20 Range/Units 07:02 Calcium 7.7 L (8.4-10.2) mg/dL Microbiology - Last 24 Hours (Table) 02/09/20 11:48 Blood Culture - Preliminary Blood No Growth after 96 hours Assessment and Plan Plan: Assessment and plan #1 sinus bradycardia, patient not a candidate for pacemaker implantation because of infections. Patient refuses any implantation of a pacemaker anyway. #2 hypokalemia, persistent in spite of replacement therapy #3 hypomagnesemia, replaced #4 persistent atrial fibrillation #5 diastolic congestive heart failure acute on chronic #6 nonsustained ventricular tachycardiac, likely related to hypokalemia, no further V. tach in the past 12 hours #7 coronary artery disease with prior bypass surgery #8 hypertension #9 hyperlipidemia #10 COPD Plan From cardiology's perspective, we'll continue the patient on his current medications. We will have a urinalysis obtained to rule out possibility of a urinary tract infection. DNP note has been reviewed, I agree with a documented findings and plan of care. Patient was seen and examined.
--- NOTE | 2020-02-14 10:15 | P.PN ---
Subjective Patient is seen in follow-up for acute kidney injury and electrolytes imbalance. Renal function improving. Potassium level normal today. Denies chest pain or shortness of breath. Oral intake fair. Vital signs are stable. General: The patient appeared well nourished and normally developed. HEENT: Head exam is unremarkable. Neck is without jugular venous distension. LUNGS: Breath sounds decreased. HEART: Rate and Rhythm are regular. ABDOMEN: Soft, nontender. EXTREMITITES: Trace edema. Objective - Vital Signs Vital signs: Vital Signs Temp 97.9 F 02/14/20 04:00 Pulse 64 02/14/20 08:41 Resp 18 02/14/20 04:00 BP 159/67 02/14/20 04:00 Pulse Ox 97 02/14/20 04:00 Intake & Output 02/13/20 02/14/20 02/14/20 18:59 06:59 18:59 Intake Total 600 240 Output Total 200 3 Balance 400 237 Weight 93 kg Intake: Oral 600 240 Output: Urine 200 3 Other: Voiding Method Urinal Urinal # Voids 540 # Bowel Movements 3 - Labs CBC & Chem 7: 02/12/20 08:29 02/14/20 07:02 Labs: Abnormal Lab Results - Last 24 Hours (Table) 02/14/20 Range/Units 07:02 Calcium 7.7 L (8.4-10.2) mg/dL Microbiology - Last 24 Hours (Table) 02/09/20 11:48 Blood Culture - Preliminary Blood No Growth after 96 hours Assessment and Plan Plan: Assessment: 1. Acute kidney injury mostly prerenal secondary to diuresis. Creatinine peaked at 1.54 this admission and is 1.22 today. Baseline creatinine near 1. UA fairly benign. 2. Wound on the buttock with culture positive for MRSA maintained on vancomycin. 3. Hypokalemia secondary to diuresis. Magnesium was also on the lower side which was replaced. Better today. Urine potassium 56 suggestive of renal potassium wasting. 4. Hypomagnesemia secondary to diuretics. Improved posterior placement. 5. Chronic diastolic CHF. 6. Bradycardia. Cardiology following. Patient was refusing pacemaker. Plan: Hold Lasix. Maintain spironolactone. Avoid nephrotoxins. Monitor vancomycin levels. Dose to be adjusted for renal function. Repeat electrolytes in the morning. Check UA and urine culture.
[2020-02-14 10:52] VITALS: BP 119/66; PULSE 75; RESP 20
--- NOTE | 2020-02-14 10:58 | P.PN ---
Subjective Progress Note Date: 02/14/20 CHIEF COMPLAINT: Rectal pain and fecal impaction HISTORY OF PRESENT ILLNESS: Patient is being followed for fecal impaction. He had 3 more bowel movements with the lactulose. Patient reports no further re ctal pain. Denies any abdominal pain. He denies any nausea or vomiting. He is tolerating diet. He is followed by cardiology for his bradycardia. Afebrile. Potassium 3.9 PHYSICAL EXAM: VITAL SIGNS: Reviewed. GENERAL: Well-developed in no acute distress. HEENT: No sclera icterus. Extraocular movements grossly intact. Moist buccal mucosa. Head is atraumatic, normocephalic. ABDOMEN: Soft. Nondistended. Nontender. NEUROLOGIC: Alert and oriented. Cranial nerves II through XII grossly intact. ASSESSMENT: 1. Rectal fecal impaction with rectal pain resolved with soapsuds enemas and lactulose 2. Multiple sacral decubitus ulcers followed by wound care service 3. Bradycardia followed by cardiology 4. Acute kidney injury 5. Hypokalemia improved 6. 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 Signing provider agrees with the documented findings, assessment, and plan of care. Objective - Vital Signs Vital signs: Vital Signs Temp 97.9 F 02/14/20 08:00 Pulse 64 02/14/20 08:41 Resp 20 02/14/20 08:00 BP 119/66 02/14/20 08:00 Pulse Ox 97 02/14/20 08:00 Intake & Output 02/13/20 02/14/20 02/14/20 18:59 06:59 18:59 Intake Total 600 240 Output Total 200 3 Balance 400 237 Weight 93 kg Intake: Oral 600 240 Output: Urine 200 3 Other: Voiding Method Urinal Urinal # Voids 540 # Bowel Movements 3 - Labs CBC & Chem 7: 02/12/20 08:29 02/14/20 07:02 Labs: Abnormal Lab Results - Last 24 Hours (Table) 02/14/20 Range/Units 07:02 Calcium 7.7 L (8.4-10.2) mg/dL Microbiology - Last 24 Hours (Table) 02/09/20 11:48 Blood Culture - Preliminary Blood No Growth after 96 hours
[2020-02-14 11:28] LABS: Appearance,Urine Clear (Clear); Bilirubin,Urine Negative (Negative); Blood,Urine Negative (Negative); Color,Urine Yellow; Glucose,Urine (UA) Negative (Negative); Ketones,Urine Negative (Negative); Leukocyte Esterase,Urine Negative (Negative); Nitrite,Urine Negative (Negative); PH, Urine 7.5 (5.0-8.0); Protein,Urine Negative (Negative); Specific Gravity,Urine 1.022 (1.001-1.035)
--- NOTE | 2020-02-14 13:35 | P.DS ---
Providers Date of admission: 02/09/20 12:30 Expected date of discharge: 02/14/20 Attending physician: Sam Sorto MD Consults: 02/09/20 13:47 Consult Physician Stat Consulting Provider: Priyank Chamorro Consult Reason/Comments: bradycardia, elevated trop Do you want consulting provider notified?: Yes 02/12/20 10:45 Consult Physician Stat Consulting Provider: Ian Sierra Consult Reason/Comments: rectal pain/ fecal impaction Do you want consulting provider notified?: Yes 02/13/20 10:51 Consult Physician Urgent Consulting Provider: Ghassan Arcos Consult Reason/Comments: increased creat, low potassium Do you want consulting provider notified?: Already Contacted Primary care physician: [facility] Hospital Course: Final diagnosis Multiple sacral decubitus with severe pain with surrounding cellulitis Atrial fibrillation with severe bradycardia History of nonsustained ventricular tachycardia Rectal pain and fecal impaction Change in mental status, acute metabolic encephalopathy, multifactorial with possible sepsis, present on admission Gait dysfunction Atrial fibrillation with bradycardia Severe hypokalemia Severe hypomagnesemia Generalized asthenia Troponin 0.07, unlikely to be acute coronary event per cardiology Increased bilirubin Anemia, normocytic possibly multifactorial History of atrial fibrillation, chronic history of CAD CHF with chronic diastolic dysfunction History of COPD, asthma Hypertension Hyperlipidemia history of myocardial infarction History of right lung cancer with wedge resection History of severe pulmonary hypertension Chronic kidney disease stage III history of coronary artery disease, CABG Claustrophobia Remote history of nicotine dependence Acute renal failure Full code Discharge disposition Patient is being discharged in a stable condition with guarded prognosis to [facility] for continued PT/OT therapy. Patient will follow-up with the [facility] in the outpatient setting upon discharge. Patient will continue on oral antibiotics in the form of Bactrim twice daily for the next 7 days to complete the course and then may discontinue. Total time taken is greater than 35 minutes. History of present illness This is an 79-year-old male who was recently admitted with rectal pain and considerable constipation and is being closely monitored. Patient was also found to have severe bradycardia with atrial fibrillation and cardiology evaluated the patient and patient is not a candidate for pacemaker placement and patient subsequently refused pacemaker as well. Patient also had multiple medical issues including electrode abnormalities and acute renal failure and was being followed by nephrology. Patient was maintained on IV antibiotics in the form of vancomycin and Zosyn and cultures finalized showing MRSA in his sacral decubitus ulcers. During hospitalization patient did receive a midline. Patient was also evaluated by surgery for rectal pain and fecal impaction and underwent soapsuds enema and patient is having bowel movements. Patient continued to be weak and was evaluated by rehab recommending F for continued PT/OT therapy. Patient will be going to [facility] today. Currently no reports of chest pain, shortness of breath, or palpitations. Patient is afebrile. No reports of nausea or vomiting and patient is tolerating diet. Patient will be going to [facility] today. On exam vital signs are stable. Temp is 97.9F, pulse is 75, respirations are 20, blood pressure is 119/66, oxygen saturation is 97% on room air. Cardio S1, S2 are muffled. Respiratory system shows diminished breath sounds at the bases with no wheezing or rhonchi noted. Abdomen is soft and and nontender. Nervous system shows diffuse weakness. Please refer to medication reconciliation sheet for a list of medications. Patient Condition at Discharge: Stable Plan - Discharge Summary Discharge Rx Participant: Yes New Discharge Prescriptions: New Spironolactone [Aldactone] 25 mg PO DAILY tab Potassium Chloride ER [K-Dur 20] 40 meq PO BID tab.er.prt Magnesium Oxide [Mag-Ox] 400 mg PO BID tab Ibuprofen [Motrin] 400 mg PO Q6HR PRN tab PRN Reason: Mild Pain Or Fever > 100.5 Pantoprazole [Protonix] 40 mg PO DAILY tablet. Theophylline 24 Hour [Fabrice-24] 200 mg PO DAILY cap.er.24h Acetaminophen Tab [Tylenol] 650 mg PO Q6HR PRN tab PRN Reason: Mild Pain Or Fever > 100.5 Thiamine [Vitamin B-1] 100 mg PO DAILY@1200 tab Continue Tiotropium 18 Mcg/Puff [Spiriva] 1 cap INHALATION RT-DAILY Nitroglycerin Sl Tabs [Nitrostat] 0.4 mg SUBLINGUAL Q5M PRN PRN Reason: Chest Pain Ferrous Sulfate [Iron] 325 mg PO TID Isosorbide Mononitrate [Isosorbide Mononitrate ER] 30 mg PO BID Simvastatin [Zocor] 20 mg PO HS Ipratropium-Albuterol Nebulize [Duoneb 0.5 mg-3 mg/3 ml Soln] 3 ml INHALATION RT-QID PRN PRN Reason: Shortness Of Breath Apixaban [Eliquis] 2.5 mg PO BID Budesonide-Formot 160-4.5 Mcg [Symbicort 160-4.5 Mcg Inhaler] 2 puff INHALATION RT-BID Folic Acid 1 mg PO DAILY Ascorbic Acid [Vitamin C] 250 mg PO DAILY cycloSPORINE 0.05% OPHTH SOLN [Restasis] 1 applicator BOTH EYES Q12H Multivitamins, Thera [Multivitamin (formulary)] 1 tab PO DAILY Discontinued Furosemide [Lasix] 80 mg PO BID Carvedilol [Coreg] 12.5 mg PO BID metOLazone [Zaroxolyn] 2.5 mg PO Q48H Potassium Chloride ER [K-Dur 20] 20 meq PO DAILY Discharge Medication List Tiotropium 18 Mcg/Puff [Spiriva] 1 cap INHALATION RT-DAILY 07/13/13 [History] Nitroglycerin Sl Tabs [Nitrostat] 0.4 mg SUBLINGUAL Q5M PRN 03/19/16 [History] Ferrous Sulfate [Iron] 325 mg PO TID 11/09/17 [History] Isosorbide Mononitrate [Isosorbide Mononitrate ER] 30 mg PO BID 11/09/17 [History] Simvastatin [Zocor] 20 mg PO HS 01/01/18 [History] Ipratropium-Albuterol Nebulize [Duoneb 0.5 mg-3 mg/3 ml Soln] 3 ml INHALATION RT-QID PRN 03/22/18 [History] Apixaban [Eliquis] 2.5 mg PO BID 09/27/18 [History] Budesonide-Formot 160-4.5 Mcg [Symbicort 160-4.5 Mcg Inhaler] 2 puff INHALATION RT-BID 09/25/19 [History] Folic Acid 1 mg PO DAILY 09/25/19 [History] Ascorbic Acid [Vitamin C] 250 mg PO DAILY 02/09/20 [History] Multivitamins, Thera [Multivitamin (formulary)] 1 tab PO DAILY 02/09/20 [History] cycloSPORINE 0.05% OPHTH SOLN [Restasis] 1 applicator BOTH EYES Q12H 02/09/20 [History] Acetaminophen Tab [Tylenol] 650 mg PO Q6HR PRN tab 02/14/20 [Rx] Ibuprofen [Motrin] 400 mg PO Q6HR PRN tab 02/14/20 [Rx] Magnesium Oxide [Mag-Ox] 400 mg PO BID tab 02/14/20 [Rx] Pantoprazole [Protonix] 40 mg PO DAILY tablet.dr 02/14/20 [Rx] Potassium Chloride ER [K-Dur 20] 40 meq PO BID tab.er.prt 02/14/20 [Rx] Spironolactone [Aldactone] 25 mg PO DAILY tab 02/14/20 [Rx] Theophylline 24 Hour [Fabrice-24] 200 mg PO DAILY cap.er.24h 02/14/20 [Rx] Thiamine [Vitamin B-1] 100 mg PO DAILY@1200 tab 02/14/20 [Rx] Follow up Appointment(s)/Referral(s): [facility],Clinic [Primary Care Provider] - 1-2 days Ambulatory/Diagnostic Orders: Basic Metabolic Panel [LAB.AMB] Time Frame: 2 Days, Location: None Selected Magnesium [LAB.AMB] Time Frame: 2 Days, Location: None Selected Activity/Diet/Wound Care/Special Instructions: Awaiting acceptance at [facility]/ antibiotics on discharge Activity as tolerated Continue with dysphagia 3 Diet Repeat BMP, mag labs in 2-3 days Wound care to the coccyx and sacrum is daily and cleanse the area with normal saline and apply zinc to the site daily or if becomes soiled. Discharge Disposition: TRANSFER TO SNF/ECF
[2020-02-14 14:13] VITALS: BMI 27.8
--- NOTE | 2020-02-14 14:15 | CDI ---
Documentation Clarification Form Date: 02/14/2020 01:45:11 PM From: Suellen Dorado RN, CCDS Admit Date: 02/09/2020 12:30:00 PM Patient Name: Khanh Mahmood Visit Number: [id number] Discharge Date: ATTENTION: The Clinical Documentation Specialists (CDI) and [facility] Coding Staff appreciate your assistance in clarifying documentation. Please respond to the clarification below the line at the bottom and electronically sign. The CDI & [facility] Coding staff will review the response and follow-up if needed. Please note: Queries are made part of the Legal Health Record. If you have any questions, please contact the author of this message via ITS. Dr. Beau Gaston Multiple sacral decubitus ulcer was documented in the H/P and subsequent progress notes. 02/08 ED: Large stage II pressure ulcer over the sacrum and coccyx. There is areas of skin breakdown leading to stage 3 ulceration 02/08 Nursing wound care assessment: left buttock stage II, right buttock stage II 02/11 Wound care consult: Full thickness pressure ulcer stage II the right gluteus (sacral region.) Please render your opinion on the number, location and stage of decubitus ulcers. History/Risk Factors: Atrial fibrillation, COPD, Hypertension, CHF, CAD Clinical Indicators: 79-year-old male present on 02/08 with progressive weakness and developed ulcers and sores in the buttock area and the rectum area. He was complaining of severe pain. He has poor hygiene. Location: sacral region per wound care Wound description: see wound consult Treatment: Apply Zinc barrier cream to the site daily Zosyn 3.375 gm IV Q 8 hrs Vancomycin 1,500 mg iv q 24 hrs PTD Wound Consults: Full thickness pressure ulcer stage II the right gluteus measuring approximately 0.2x0.2x0.1 cm granulation seen throughout the wound bed with minimal slough. Elements for accurate and compliant documentation of an ulcer: *The location/laterality of the ulcer *Etiology (decubitus/pressure, diabetic, PVD) *Stage I-IV, Unstageable, Suspected Deep Tissue Injury (To the deepest stage) *If the ulcer was present at admission (POA) or occurred after admission In your professional opinion, can you please clarify the diagnosis, location, laterality and whether present on admission (POA): Stage 1 Pressure/Decubitus Ulcer (intact skin, non-blanching redness of local area) Stage 2 Pressure/Decubitus Ulcer (Partial thickness, loss of dermis, pink wound bed) Stage 3 Pressure/Decubitus Ulcer (Full thickness tissue loss) Stage 4 Pressure/Decubitus Ulcer (Full thickness tissue loss with exposed bone, tendon, or muscle. May have slough or eschar present) Unstageable Other condition, please specify Unable to determine Please indicate etiology of pressure ulcer (if known). (Last Revision: December 2016) Stage 2 Pressure/Decubitus Ulcer (Partial thickness, loss of dermis, pink wound bed) MTDD
--- NOTE | 2020-02-17 09:14 | PCN ---
PROCEDURE NOTE DATE OF SERVICE: 02/16/2020 PROCEDURE: Temporary pacemaker implantation. HISTORY: This patient was admitted to the hospital with severe bradycardia and hyperkalemia. Underlying heart rhythm is atrial fibrillation. The patient is advised to have a temporary pacemaker. External pacemaker has been on for a few hours. PROCEDURE: The patient was brought to the lab in a fasting state. He was prepped and draped in the usual fashion. The right groin was infiltrated with lidocaine. The right femoral vein was entered using Seldinger technique and a 6-Moroccan sheath was left in place. A 5-Moroccan balloon tipped temporary pacemaker wire was advanced into the right ventricular apical region. Satisfactory position was obtained. was excellent. The pacing threshold was less than 1 mV. The pacemaker was set at a rate of 40 and output of 3. The pacemaker was sutured to the floor. The sheath was sutured to the floor. The patient tolerated the procedure well. IMPRESSION: Successful implantation of temporary pacemaker under fluoroscopy. PLAN: Patient will be transferred to ICU for further monitoring. MMODL / IJN: [id number] /
== END 2020-02-14 15:51 | DRG 871 ==
LOC: EC 10:10 → 4SSUR 12:30 → 3SCARD 14:32
PROVIDERS: ADMIT Internal Medicine; ATTEND Internal Medicine
PROC: 05HB33Z Insertion of Infusion Device into Right Basilic Vein, Percutaneous Approach (ICD-10-PCS; principal; 2020-02-12 21:05)
DX: A41.02 Sepsis due to Methicillin resistant Staphylococcus aureus (principal); G93.41 Metabolic encephalopathy; I50.33 Acute on chronic diastolic (congestive) heart failure; I48.19 Other persistent atrial fibrillation; N17.9 Acute kidney failure, unspecified; I13.0 Hypertensive heart and chronic kidney disease with heart failure and stage 1 through stage 4 chronic kidney disease, or unspecified chronic kidney disease; I47.2 Ventricular tachycardia; L03.115 Cellulitis of right lower limb; E78.5 Hyperlipidemia, unspecified; I25.10 Atherosclerotic heart disease of native coronary artery without angina pectoris; E87.6 Hypokalemia; L89.152 Pressure ulcer of sacral region, stage 2; E83.42 Hypomagnesemia; Z20.828 Contact with and (suspected) exposure to other viral communicable diseases; I27.20 Pulmonary hypertension, unspecified; K56.41 Fecal impaction; K44.9 Diaphragmatic hernia without obstruction or gangrene; R53.81 Other malaise; F40.240 Claustrophobia; D53.9 Nutritional anemia, unspecified; R26.9 Unspecified abnormalities of gait and mobility; N18.30 Chronic kidney disease, stage 3 unspecified; I49.3 Ventricular premature depolarization; R53.1 Weakness; K80.20 Calculus of gallbladder without cholecystitis without obstruction; J44.9 Chronic obstructive pulmonary disease, unspecified; T50.2X5A Adverse effect of carbonic-anhydrase inhibitors, benzothiadiazides and other diuretics, initial encounter; I25.2 Old myocardial infarction; Z79.01 Long term (current) use of anticoagulants; Z79.51 Long term (current) use of inhaled steroids; Z79.899 Other long term (current) drug therapy; Z80.0 Family history of malignant neoplasm of digestive organs; Z83.3 Family history of diabetes mellitus; Z85.118 Personal history of other malignant neoplasm of bronchus and lung; Z95.1 Presence of aortocoronary bypass graft; Z87.891 Personal history of nicotine dependence
CPT/HCPCS: 36410; 36415; 70450; 71045; 74176; 76937; 80048; 80051; 80053; 80061; 80202; 81003; 82272; 82565; 82570; 83735; 83880; 84132; 84133; 84443; 84484; 85025; 85610; 85730; 87040; 87070; 87077; 87186; 87205; 93005; 93306; 94640; 96365; 96366; 96367; 96375; 99285

== ENCOUNTER 2020-02-15 19:05 | Inpatient (IN) | payer OTHER, MEDICARE ==
[2020-02-15] MEDS ORDERED: SODIUM CHLORIDE 0.9% 500 ML 500 ML IV STA (19:09)
--- NOTE | 2020-02-15 19:18 | ED ---
General Adult HPI - General Stated complaint: Chest pain Time Seen by Provider: 02/15/20 19:05 Source: RN notes reviewed, old records reviewed - History of Present Illness Initial comments: This is a 79-year-old male who presents emergency Department complaining shortness of breath and fatigue. Patient states he was just in the hospital recently and they told him he needed a pacemaker because his heart rate was in the 30s and 40s but the time he didn't want have it done so they [facility]. Patient states at this point time he would like to have a pacemaker done as possible. Patient denies any chest pain or palpitations. Patient denies any recent fever chills or cough. Patient denies any lighth eadedness or dizziness. Patient denies any abdominal pain patient denies nausea vomiting diarrhea. Patient does not ambulate on his own. Patient does have chronic edema to the legs. - Related Data Home Medications Medication Instructions Recorded Confirmed Tiotropium 18 Mcg/Puff [Spiriva] 1 cap INHALATION RT-DAILY@0800 07/13/13 02/15/20 Nitroglycerin Sl Tabs [Nitrostat] 0.4 mg SL Q5M PRN 03/19/16 02/15/20 Ferrous Sulfate [Iron] 325 mg PO TID@0800,1200,17011/09/17 02/15/20 Isosorbide Mononitrate [Isosorbide 30 mg PO BID@0800,1700 11/09/17 02/15/20 Mononitrate ER] Ipratropium-Albuterol Nebulize 3 ml INHALATION RT-QID PRN 03/22/18 02/15/20 [Duoneb 0.5 mg-3 mg/3 ml Soln] Apixaban [Eliquis] 2.5 mg PO BID@0800,1700 09/27/18 02/15/20 Budesonide-Formot 160-4.5 Mcg 2 puff INHALATION RT-BID@0800,1700 09/25/19 02/15/20 [Symbicort 160-4.5 Mcg Inhaler] Folic Acid 1 mg PO DAILY@1700 09/25/19 02/15/20 Ascorbic Acid [Vitamin C] 250 mg PO DAILY@1700 02/09/20 02/15/20 Multivitamins, Thera [Multivitamin 1 tab PO DAILY@1700 02/09/20 02/15/20 (formulary)] cycloSPORINE 0.05% OPHTH SOLN 1 drop BOTH EYES Q12H 02/09/20 02/15/20 [Restasis] Acetaminophen Tab [Tylenol] 650 mg PO Q6H PRN 02/15/20 02/15/20 Ensure Clear 120 ml PO TID@0800,1200,1700 02/15/20 02/15/20 Linezolid 600 mg PO BID@0800,2100 02/15/20 02/15/20 Magnesium Hydroxide [Milk of 7,200 mg PO Q48H PRN 02/15/20 02/15/20 Magnesia Concentrate] Magnesium Oxide [Mag-Ox] 400 mg PO BID@0800,1700 02/15/20 02/15/20 Na Phos,M-B/Na Phos,Di-Ba [Fleet 133 ml RECTAL DAILY PRN 02/15/20 02/15/20 Adult] Pantoprazole [Protonix] 40 mg PO DAILY@0600 02/15/20 02/15/20 Potassium Chloride ER [K-Dur 20] 40 meq PO BID@0800,1700 02/15/20 02/15/20 Simvastatin [Zocor] 20 mg PO HS@209902/15/20 02/15/20 Spironolactone [Aldactone] 25 mg PO DAILY@0600 02/15/20 02/15/20 Sulfamethox-Tmp 800-160Mg [Bactrim 1 tab PO BID@0800,2100 02/15/20 02/15/20 DS 800-160 mg] Tamsulosin HCl [Flomax] 0.4 mg PO BID@0800,1700 02/15/20 02/15/20 Theophylline 24 Hour [Fabrice-24] 200 mg PO DAILY@0800 02/15/20 02/15/20 bisacodyL [Bisacodyl] 10 mg RECTAL DAILY PRN 02/15/20 02/15/20 Previous Rx's Medication Instructions Recorded Ibuprofen [Motrin] 400 mg PO Q6HR PRN tab 02/14/20 Thiamine [Vitamin B-1] 100 mg PO DAILY@1200 tab 02/14/20 Allergies Allergy/AdvReac Type Severity Reaction Status Date / Time No Known Allergies Allergy Verified 02/15/20 19:26 Review of Systems ROS Statement: Those systems with pertinent positive or pertinent negative responses have been documented in the HPI. ROS Other: All systems not noted in ROS Statement are negative. Past Medical History Past Medical History: Atrial Fibrillation, Coronary Artery Disease (CAD), Cancer, Heart Failure, COPD, Hyperlipidemia, Hypertension, Myocardial Infarction (NM), Renal Disease Additional Past Medical History / Comment(s): R lung cancer with wedge resection-no chemo or radiation, severe pulmonary HTN, CKD stage III, anemia,hiatal hernia, constipation/benign polyp, bradycardia. Last Myocardial Infarction Date:: 2002 History of Any Multi-Drug Resistant Organisms: MRSA Date of last positivie culture/infection: 02/10/20 MDRO Source:: Buttock Past Surgical History: Appendectomy, Coronary Bypass/CABG, Heart Catheterization, Orthopedic Surgery Additional Past Surgical History / Comment(s): 2002 CABG 3 vessel, cardiac angioplasty, R lung wedge resection, R hip closed reduction/ORIF, EGD, colonoscopies/polypectgomies. Past Anesthesia/Blood Transfusion Reactions: No Reported Reaction Additional Past Anesthesia/Blood Transfusion Reaction / Comment(s): CLAUSTERPHOBIA. Pt has received blood in past without reaction. Smoking Status: Former smoker - Past Family History Father Family Medical History: Cancer Additional Family Medical History / Comment(s): of pancreatic cancer Mother Family Medical History: Diabetes Mellitus Additional Family Medical History / Comment(s): AT AGE 90 WAS IN PRETTY GOOD HEALTH FROM OLD AGE Brother(s) Family Medical History: Diabetes Mellitus Additional Family Medical History / Comment(s): 2 BROTHERS HAVE DIABETES General Exam - General Exam Comments Initial Comments: GENERAL: Patient is well-developed and well-nourished. Patient is nontoxic and well- hydrated and is in no acute distress. ENT: Neck is soft and supple. No significant lymphadenopathy is noted. Oropharynx is clear. Moist mucous membranes. Neck has full range of motion without eliciting any pain. EYES: The sclera were anicteric and conjunctiva were pink and moist. Extraocular movements were intact and pupils were equal round and reactive to light. Eyelids were unremarkable. PULMONARY: Unlabored respirations. Good breath sounds bilaterally. No audible rales rhonchi or wheezing was noted. CARDIOVASCULAR: There is a regular rate and rhythm without any murmurs gallops or rubs. Femoral pulses are equal bilaterally ABDOMEN: Soft and nontender with normal bowel sounds. SKIN: Skin is clear with no lesions or rashes and otherwise unremarkable. NEUROLOGIC: Patient is alert and oriented x3. Cranial nerves II through XII are grossly intact. Motor and sensory are also intact. Normal speech, volume and content. Symmetrical smile. MUSCULOSKELETAL: Normal extremities with adequate strength and full range of motion. 2+ edema LYMPHATICS: No significant lymphadenopathy is noted PSYCHIATRIC: Normal psychiatric evaluation. Course Vital Signs 02/15/20 02/15/20 02/15/20 19:08 19:29 19:50 Temperature 97.4 F L Pulse Rate 35 L 35 L Respiratory 17 30 H Rate Blood Pressure 133/50 133/50 90/52 O2 Sat by Pulse 97 99 Oximetry 02/15/20 02/15/20 20:00 20:10 Temperature Pulse Rate 42 L 36 L Respiratory 28 H 34 H Rate Blood Pressure 90/52 123/58 O2 Sat by Pulse 99 99 Oximetry Medical Decision Making - Medical Decision Making EKG shows a ventricular rate of 46 beats a minute QRS is 122 QT interval 654 and QTC is 572. Patient is occasional PVC Patient's troponin is mildly elevated however on the last 2 draws it was the same. Patient needs to be admitted for bradycardia I with [facility] agreed to admit the patient admitted the patient I wrote admitting orders I consult cardiology - Lab Data Result diagrams: 02/15/20 19:30 02/15/20 19:30 Lab Results 02/15/20 02/15/20 02/15/20 Range/Units 19:30 19:30 19:30 WBC 11.4 H (3.8-10.6) k/uL RBC 4.00 L (4.30-5.90) m/uL Hgb 12.8 L (13.0-17.5) gm/dL Hct 38.8 L (39.0-53.0) % MCV 97.1 (80.0-100.0) fL MCH 32.2 (25.0-35.0) pg MCHC 33.1 (31.0-37.0) g/dL RDW 15.3 (11.5-15.5) % Plt Count 186 (150-450) k/uL MPV 9.7 Neutrophils % 84 % Lymphocytes % 8 % Monocytes % 5 % Eosinophils % 1 % Basophils % 0 % Neutrophils # 9.6 H (1.3-7.7) k/uL Lymphocytes # 0.9 L (1.0-4.8) k/uL Monocytes # 0.6 (0-1.0) k/uL Eosinophils # 0.1 (0-0.7) k/uL Basophils # 0.0 (0-0.2) k/uL PT 13.2 H (9.0-12.0) sec INR 1.3 H (<1.2) APTT 27.7 (22.0-30.0) sec Sodium 137 (137-145) mmol/L Potassium 5.5 H (3.5-5.1) mmol/L Chloride 107 (98-107) mmol/L Carbon Dioxide 24 (22-30) mmol/L Anion Gap 6 mmol/L BUN 19 (9-20) mg/dL Creatinine 1.44 H (0.66-1.25) mg/dL Est GFR (CKD-EPI)AfAm 53 (>60 ml/min/1.73 sqM) Est GFR (CKD-EPI)NonAf 46 (>60 ml/min/1.73 sqM) Glucose 117 H (74-99) mg/dL Calcium 8.6 (8.4-10.2) mg/dL Magnesium 2.4 H (1.6-2.3) mg/dL Total Bilirubin 1.4 H (0.2-1.3) mg/dL AST 22 (17-59) U/L ALT 19 (4-49) U/L Alkaline Phosphatase 38 (38-126) U/L Troponin I (0.000-0.034) ng/mL Total Protein 6.4 (6.3-8.2) g/dL Albumin 2.8 L (3.5-5.0) g/dL 02/15/20 Range/Units 19:30 WBC (3.8-10.6) k/uL RBC (4.30-5.90) m/uL Hgb (13.0-17.5) gm/dL Hct (39.0-53.0) % MCV (80.0-100.0) fL MCH (25.0-35.0) pg MCHC (31.0-37.0) g/dL RDW (11.5-15.5) % Plt Count (150-450) k/uL MPV Neutrophils % % Lymphocytes % % Monocytes % % Eosinophils % % Basophils % % Neutrophils # (1.3-7.7) k/uL Lymphocytes # (1.0-4.8) k/uL Monocytes # (0-1.0) k/uL Eosinophils # (0-0.7) k/uL Basophils # (0-0.2) k/uL PT (9.0-12.0) sec INR (<1.2) APTT (22.0-30.0) sec Sodium (137-145) mmol/L Potassium (3.5-5.1) mmol/L Chloride (98-107) mmol/L Carbon Dioxide (22-30) mmol/L Anion Gap mmol/L BUN (9-20) mg/dL Creatinine (0.66-1.25) mg/dL Est GFR (CKD-EPI)AfAm (>60 ml/min/1.73 sqM) Est GFR (CKD-EPI)NonAf (>60 ml/min/1.73 sqM) Glucose (74-99) mg/dL Calcium (8.4-10.2) mg/dL Magnesium (1.6-2.3) mg/dL Total Bilirubin (0.2-1.3) mg/dL AST (17-59) U/L ALT (4-49) U/L Alkaline Phosphatase (38-126) U/L Troponin I 0.067 H* (0.000-0.034) ng/mL Total Protein (6.3-8.2) g/dL Albumin (3.5-5.0) g/dL Disposition Clinical Impression: Bradycardia Disposition: ADMITTED IP TO THIS HOSP Referrals: [facility],Clinic [Primary Care Provider] - 1-2 days Time of Disposition: 20:39
[2020-02-15 19:39] LABS: Basophils % (A) 0 %; Eosinophils # (A) 0.1 k/uL (0-0.7); Eosinophils % (A) 1 %; HCT 38.8 % (39.0-53.0); HGB 12.8 gm/dL (13.0-17.5); Lymphocytes # (A) 0.9 k/uL (1.0-4.8); Lymphocytes % (A) 8 %; MCH 32.2 pg (25.0-35.0); MCHC 33.1 g/dL (31.0-37.0); MCV 97.1 fL (80.0-100.0); Mean Platelet Volume 9.7; Monocytes # (A) 0.6 k/uL (0-1.0); Monocytes % (A) 5 %; Neutrophils # (A) 9.6 k/uL (1.3-7.7); Neutrophils % (A) 84 %; Platelet Count 186 k/uL (150-450); RDW 15.3 % (11.5-15.5); WBC 11.4 k/uL (3.8-10.6)
[2020-02-15 19:55] LABS: INR 1.3 (<1.2); Partial Thromboplastin Time 27.7 sec (22.0-30.0); Prothrombin Time 13.2 sec (9.0-12.0)
--- NOTE | 2020-02-15 20:03 | XR ---
EXAMINATION TYPE: XR chest 2V DATE OF EXAM: 02/15/2020 COMPARISON: 02/12/2020 HISTORY: Hypoxemia. Chest pain TECHNIQUE: 2 views FINDINGS: There is some blunting of the costophrenic angles more on the right side than the left. The re are sternal wires. Heart is borderline enlarged. Bony thorax is intact. There are no hilar masses. Lungs are clear of consolidation. IMPRESSION: Bilateral small pleural effusions are increased compared to recent exam. Minimal heart fa ilure is possible.
[2020-02-15 20:11] LABS: Albumin 2.8 g/dL (3.5-5.0); Calcium 8.6 mg/dL (8.4-10.2); Magnesium 2.4 mg/dL (1.6-2.3); Total Bilirubin 1.4 mg/dL (0.2-1.3); Total Protein 6.4 g/dL (6.3-8.2)
[2020-02-15 20:28] LABS: Potassium 5.5 mmol/L (3.5-5.1)
[2020-02-15] MEDS ORDERED: NITROGLYCERIN SL TABS 0.4 MG TAB SUBLINGUAL PRN (20:39)
[2020-02-16] MEDS ORDERED: ATROPINE SULFATE 0.1 MG/ML 10ML SYRINGE IV STA (04:20)
[2020-02-16] MEDS ORDERED: CALCIUM GLUCONATE 2 GM in SODIUM CHLORIDE 0.9% 100 ML IVPB ONE (04:20)
[2020-02-16] MEDS: DOPamine DRIP 800 MG in DEXTROSE/WATER 1 250ML.BAG IV SCH (05:59)
[2020-02-16 06:44] LABS: Calcium 9.2 mg/dL (8.4-10.2); Magnesium 2.4 mg/dL (1.6-2.3); Potassium 5.8 mmol/L (3.5-5.1)
[2020-02-16 08:04] LABS: Glucose,Whole Blood 112 mg/dL (75-99)
[2020-02-16] MEDS ORDERED: SODIUM POLYSTYRENE SULFONATE 15 GM/60 ML BOTTLE PO STA (08:20)
[2020-02-16] MEDS: ASPIRIN 325 MG TAB PO SCH (08:48)
[2020-02-16] MEDS ORDERED: SODIUM POLYSTYRENE SULFONATE 30 GM/120 ML BOTTLE RECTAL STA (09:03)
[2020-02-16] MEDS ORDERED: LORazepam 2 MG/ML INJ ONE (09:07)
[2020-02-16] MEDS ORDERED: MAGNESIUM HYDROXIDE 2,400 MG/10 ML CUP PO PRN (10:31)
[2020-02-16] MEDS ORDERED: NA PHOS,M-B/NA PHOS,DI-BA 133 ML ENEMA RECTAL PRN (10:31)
[2020-02-16] MEDS ORDERED: NITROGLYCERIN SL TABS 0.4 MG TAB SUBLINGUAL PRN (10:31)
--- NOTE | 2020-02-16 10:54 | P.CRDCN ---
History of Present Illness Consult date: 02/16/20 Chief complaint: Dizziness, hyperkalemia History of present illness: This is a pleasant 79-year-old gentleman who was recently discharged to [facility]. He had just been in the hospital with a sinus bradycardia, hypokalemia, hypomagnesemia. Patient has past medical history significant for atrial fibrillation, COPD, hypertension, hyperlipidemia, coronary artery disease with prior bypass surgery. On this most recent admission, his beta everton had been held because of significant bradycardia arrhythmias. Patient was also running a low potassium level, ultimately Aldactone had been added and patient's potassium was remaining stable. While at the [facility], patient was quite dizzy, lightheaded, and his heart rate was noted to be in the 30s, he was also having PVCs. He was readmitted to the hospital and seen in the intensive care unit this morning. His blood pressure 135/60, heart rate in the 30s to 40s. He is having evidence of significant pauses this morning. White blood cell count 11.4, hemoglobin 12.8, platelet count 186. Sodium 136, potassium 5.8, BUN 19, creatinine 1.5. Magnesium 2.4. BNP level 1120. Troponins 0.06, 0.06, 0.06. EKG on presentation here showed atrial fibrillation with right axis deviation and nonspecific ST-T wave changes, Patient is complaining of feeling quite nauseated, still complains of significant dizziness. We had ordered Kayexalate for the patient, however because of the nausea and vomiting he was unable to take that. The nurse attempted to given rectally, but patient continued to have significant pauses. For this reason patient was scheduled to undergo implantation of a temporary pacemaker. This will be performed this morning by Dr. Hair. Chest x-ray shows bilateral small pleural effusions increase as compared with recent exam. Past Medical History Past Medical History: Atrial Fibrillation, Coronary Artery Disease (CAD), Cancer, Heart Failure, COPD, Hyperlipidemia, Hypertension, Myocardial Infarction (TN), Renal Disease Additional Past Medical History / Comment(s): R lung cancer with wedge resection-no chemo or radiation, severe pulmonary HTN, CKD stage III, anemia,hiatal hernia, constipation/benign polyp, bradycardia. Last Myocardial Infarction Date:: 2002 History of Any Multi-Drug Resistant Organisms: MRSA Date of last positivie culture/infection: 02/10/20 MDRO Source:: Buttock Past Surgical History: Appendectomy, Coronary Bypass/CABG, Heart Catheterization, Orthopedic Surgery Additional Past Surgical History / Comment(s): 2002 CABG 3 vessel, cardiac angioplasty, R lung wedge resection, R hip closed reduction/ORIF, EGD, colonoscopies/polypectgomies. Past Anesthesia/Blood Transfusion Reactions: No Reported Reaction Additional Past Anesthesia/Blood Transfusion Reaction / Comment(s): CLAUSTERPHOBIA. Pt has received blood in past without reaction. Past Psychological History: No Psychological Hx Reported Additional Psychological History / Comment(s): Pt resides at [facility]. Smoking Status: Former smoker Past Alcohol Use History: None Reported Additional Past Alcohol Use History / Comment(s): started smoking at age 18 (19 59), quit 2001 smoked 1 ppd. Past Drug Use History: None Reported - Past Family History Father Family Medical History: Cancer Additional Family Medical History / Comment(s): of pancreatic cancer Mother Family Medical History: Diabetes Mellitus Additional Family Medical History / Comment(s): AT AGE 90 WAS IN PRETTY GOOD HEALTH FROM OLD AGE Brother(s) Family Medical History: Diabetes Mellitus Additional Family Medical History / Comment(s): 2 BROTHERS HAVE DIABETES Medications and Allergies Home Medications Medication Instructions Recorded Confirmed Type Tiotropium 18 Mcg/Puff [Spiriva] 1 cap INHALATION RT-DAILY@0800 07/13/13 02/15/20 History Nitroglycerin Sl Tabs [Nitrostat] 0.4 mg SL Q5M PRN 03/19/16 02/15/20 History Ferrous Sulfate [Iron] 325 mg PO TID@0800,1200,1700 11/09/17 02/15/20 History Isosorbide Mononitrate [Isosorbide 30 mg PO BID@0800,1700 11/09/17 02/15/20 History Mononitrate ER] Ipratropium-Albuterol Nebulize 3 ml INHALATION RT-QID PRN 03/22/18 02/15/20 History [Duoneb 0.5 mg-3 mg/3 ml Soln] Apixaban [Eliquis] 2.5 mg PO BID@0800,1700 09/27/18 02/15/20 History Budesonide-Formot 160-4.5 Mcg 2 puff INHALATION RT-BID@0800,1700 09/25/19 02/15/20 History [Symbicort 160-4.5 Mcg Inhaler] Folic Acid 1 mg PO DAILY@1700 09/25/19 02/15/20 History Ascorbic Acid [Vitamin C] 250 mg PO DAILY@1700 02/09/20 02/15/20 History Multivitamins, Thera [Multivitamin 1 tab PO DAILY@1700 02/09/20 02/15/20 History (formulary)] cycloSPORINE 0.05% OPHTH SOLN 1 drop BOTH EYES Q12H 02/09/20 02/15/20 History [Restasis] Ibuprofen [Motrin] 400 mg PO Q6HR PRN tab 02/14/20 02/15/20 Rx Thiamine [Vitamin B-1] 100 mg PO DAILY@1200 tab 02/14/20 02/15/20 Rx Acetaminophen Tab [Tylenol] 650 mg PO Q6H PRN 02/15/20 02/15/20 History Ensure Clear 120 ml PO TID@0800,1200,1700 02/15/20 02/15/20 History Linezolid 600 mg PO BID@0800,209902/15/20 02/15/20 History Magnesium Hydroxide [Milk of 7,200 mg PO Q48H PRN 02/15/20 02/15/20 History Magnesia Concentrate] Magnesium Oxide [Mag-Ox] 400 mg PO BID@0800,1700 02/15/20 02/15/20 History Na Phos,M-B/Na Phos,Di-Ba [Fleet 133 ml RECTAL DAILY PRN 02/15/20 02/15/20 History Adult] Pantoprazole [Protonix] 40 mg PO DAILY@0600 02/15/20 02/15/20 History Potassium Chloride ER [K-Dur 20] 40 meq PO BID@0800,1700 02/15/20 02/15/20 History Simvastatin [Zocor] 20 mg PO HS@209902/15/20 02/15/20 History Spironolactone [Aldactone] 25 mg PO DAILY@0600 02/15/20 02/15/20 History Sulfamethox-Tmp 800-160Mg [Bactrim 1 tab PO BID@0800,209902/15/20 02/15/20 History DS 800-160 mg] Tamsulosin HCl [Flomax] 0.4 mg PO BID@0800,1700 02/15/20 02/15/20 History Theophylline 24 Hour [Fabrice-24] 200 mg PO DAILY@0800 02/15/20 02/15/20 History bisacodyL [Bisacodyl] 10 mg RECTAL DAILY PRN 02/15/20 02/15/20 History Allergies Allergy/AdvReac Type Severity Reaction Status Date / Time No Known Allergies Allergy Verified 02/15/20 19:26 Physical Exam Vitals: Vital Signs Temp Pulse Resp BP Pulse Ox 02/16/20 10:00 40 L 26 H 135/59 100 02/16/20 09:15 80 26 H 146/73 97 02/16/20 09:00 37 L 20 89/43 97 02/16/20 08:15 97.6 F 60 28 H 139/75 98 02/16/20 06:32 33 L 20 113/51 99 02/16/20 06:12 31 L 26 H 107/73 02/16/20 04:00 63 16 152/66 99 02/16/20 03:10 56 L 18 108/88 99 02/16/20 02:30 56 L 27 H 94/56 100 02/16/20 02:00 33 L 23 154/97 100 02/16/20 01:30 41 L 26 H 148/97 100 02/16/20 01:00 40 L 27 H 148/68 100 02/16/20 00:30 34 L 28 H 138/99 100 02/16/20 00:00 32 L 27 H 137/67 100 02/15/20 23:30 42 L 28 H 128/55 100 02/15/20 23:23 38 L 24 128/55 100 02/15/20 23:20 33 L 24 128/55 100 02/15/20 23:10 25 H 128/55 99 02/15/20 23:00 23 148/105 98 02/15/20 22:50 31 L 20 148/105 99 02/15/20 22:40 30 L 24 148/105 99 02/15/20 22:30 34 L 20 146/109 99 02/15/20 22:20 32 L 19 146/109 100 02/15/20 22:10 32 L 27 H 146/109 99 02/15/20 22:00 32 L 28 H 90/63 99 02/15/20 21:50 36 L 29 H 90/63 100 02/15/20 21:40 41 L 29 H 90/63 100 02/15/20 21:30 34 L 0 L 79/62 100 02/15/20 21:20 37 L 22 79/62 100 02/15/20 21:10 33 L 30 H 79/62 100 02/15/20 21:00 43 L 30 H 136/52 99 02/15/20 20:50 37 L 35 H 136/52 99 02/15/20 20:40 34 L 28 H 136/52 99 02/15/20 20:30 35 L 15 123/58 100 02/15/20 20:10 36 L 34 H 123/58 99 02/15/20 20:00 42 L 28 H 90/52 99 02/15/20 19:50 90/52 02/15/20 19:29 35 L 30 H 133/50 99 02/15/20 19:08 97.4 F L 35 L 17 133/50 97 Intake and Output 02/15/20 02/16/20 02/16/20 22:59 06:59 14:59 Other: Voiding Method Urinal Weight 92.4 kg PHYSICAL EXAMINATION: GENERAL: 79-year-old gentleman in no acute distress at the time of my examination HEENT: Head is atraumatic, normocephalic. Pupils equal, round. Sclera anicteric. Conjunctiva are clear. Mucous membranes of the mouth are moist. Neck is supple. There is no elevated jugular venous pressure. No carotid bruit is heard. HEART EXAMINATION: [Heart S1, S2 irregularly irregular CHEST EXAMINATION: Lungs reveal mild diminished air entry to the bases bilaterally ABDOMEN: Soft, nontender. Bowel sounds are heard. No organomegaly noted. EXTREMITIES:1+ peripheral pulses with evidence of peripheral edema , chronic venous stasis . Full thickness pressure ulcer stage II at the right gluteus NEUROLOGIC patient is awake, alert and oriented 2 . . Results 02/15/20 19:30 02/16/20 06:23 Cardiac Enzymes 02/15/20 02/15/20 02/15/20 Range/Units 19:30 19:30 20:57 AST 22 (17-59) U/L Troponin I 0.067 H* 0.066 H* (0.000-0.034) ng/mL 02/15/20 Range/Units 23:51 AST (17-59) U/L Troponin I 0.066 H* (0.000-0.034) ng/mL Coagulation 02/15/20 Range/Units 19:30 PT 13.2 H (9.0-12.0) sec APTT 27.7 (22.0-30.0) sec CBC 02/15/20 Range/Units 19:30 WBC 11.4 H (3.8-10.6) k/uL RBC 4.00 L (4.30-5.90) m/uL Hgb 12.8 L (13.0-17.5) gm/dL Hct 38.8 L (39.0-53.0) % Plt Count 186 (150-450) k/uL Comprehensive Metabolic Panel 02/15/20 02/16/20 Range/Units 19:30 06:23 Sodium 137 136 L (137-145) mmol/L Potassium 5.5 H 5.8 H (3.5-5.1) mmol/L Chloride 107 111 H (98-107) mmol/L Carbon Dioxide 24 19 L (22-30) mmol/L BUN 19 19 (9-20) mg/dL Creatinine 1.44 H 1.50 H (0.66-1.25) mg/dL Glucose 117 H 115 H (74-99) mg/dL Calcium 8.6 9.2 (8.4-10.2) mg/dL AST 22 (17-59) U/L ALT 19 (4-49) U/L Alkaline Phosphatase 38 (38-126) U/L Total Protein 6.4 (6.3-8.2) g/dL Albumin 2.8 L (3.5-5.0) g/dL Current Medications Generic Name Dose Route Start Last Admin Trade Name Freq PRN Reason Stop Dose Admin Albuterol/Ipratropium 3 ml 02/16/20 10:31 Ipratropium-Albuterol 3 Ml Neb INHALATION RT-QID PRN Shortness Of Breath Aspirin 325 mg 02/16/20 09:00 02/16/20 08:48 Aspirin 325 Mg Tab PO 325 mg DAILY [facility] Administration Budesonide/Formoterol Fumarate 2 puff 02/16/20 17:00 Symbicort 160-4.5 Mcg Inhaler INHALATION RT-BID@0800,1700 [facility] Dopamine HCl/Dextrose 800 mg/ 250 mls @ 3.249 mls/hr 02/16/20 05:15 02/16/20 05:59 IV Solution IV 2 mcg/kg/min .Q24H [facility] 3.249 mls/hr Administration Protocol 2 MCG/KG/MIN Sodium Chloride 1,000 mls @ 50 mls/hr 02/16/20 09:45 Saline 0.9% IV .Q20H [facility] Sodium Chloride 1,000 mls @ 50 mls/hr 02/16/20 09:45 Saline 0.9% IV .Q20H [facility] Isosorbide Mononitrate 30 mg 02/16/20 17:00 Isosorbide Mononitrate Er 30 Mg Tab.Er.24h PO BID@0800,1700 [facility] Linezolid 600 mg 02/16/20 21:00 Linezolid 600 Mg Tab PO BID@0800,2100 [facility] Magnesium Hydroxide 7,200 mg 02/16/20 10:31 Magnesium Hydroxide 2,400 Mg/10 Ml Cup PO Q48H PRN Constipation Magnesium Oxide 400 mg 02/16/20 17:00 Magnesium Oxide 400 Mg Tab PO BID@0800,1700 [facility] Nitroglycerin 0.4 mg 02/15/20 20:39 Nitroglycerin Sl Tabs 0.4 Mg Tab SUBLINGUAL Q5M PRN Chest Pain Nitroglycerin 0.4 mg 02/16/20 10:31 Nitroglycerin Sl Tabs 0.4 Mg Tab SUBLINGUAL Q5M PRN Chest Pain Non-Formulary Medication 1 cap 02/17/20 08:00 Tiotropium 18 Mcg/Puff INHALATION RT-DAILY@0800 [facility] Non-Formulary Medication 20 mg 02/16/20 21:00 Simvastatin [Zocor] PO HS@2100 [facility] Non-Formulary Medication 250 mg 02/16/20 17:00 Ascorbic Acid [Vitamin C] PO DAILY@1700 [facility] Pantoprazole Sodium 40 mg 02/17/20 06:00 Pantoprazole 40 Mg Tablet PO DAILY@0600 [facility] Sodium Biphosphate/Sodium Phosphate 133 ml 02/16/20 10:31 Na Phos,M-B/Na Phos,Di-Ba 133 Ml Enema RECTAL DAILY PRN Constipation Spironolactone 25 mg 02/17/20 06:00 Spironolactone 25 Mg Tab PO DAILY@0600 [facility] Tamsulosin HCl 0.4 mg 02/16/20 17:00 Tamsulosin 0.4 Mg Cap.Er.24h PO BID@0800,1700 [facility] Theophylline 200 mg 02/17/20 08:00 Theophylline 24 Hour 200 Mg Cap.Er.24h PO DAILY@0800 [facility] Thiamine HCl 100 mg 02/16/20 12:00 Thiamine 100 Mg Tab PO DAILY@1200 [facility] Intake and Output 02/15/20 02/16/20 02/16/20 22:59 06:59 14:59 Other: Voiding Method Urinal Weight 92.4 kg 02/15/20 19:30 02/16/20 06:23 EKG Interpretations (text) EKG shows atrial fibrillation with a slow ventricular response Assessment and Plan Plan: Assessment and plan #1 bradycardia with evidence of significant pauses, could be secondary to hyperkalemia #2 hyperkalemia, potassium 5.8 #3 recent hospitalization with hypokalemia #4 persistent atrial fibrillation #5 coronary artery disease with prior bypass surgery #6 hypertension #7 hyperlipidemia #8 COPD #9 pressure ulcer of the sacral region, stage II Plan Patient has been connected to the external pacer, Kayexalate has been ordered. Patient has been advised to undergo temporary pacemaker placement. Continue dopamine drip. Further recommendations to follow. DNP note has been reviewed, I agree with a documented findings and plan of care. Patient was seen and examined.
[2020-02-16] MEDS ORDERED: LIDOCAINE 1% INJ 10MG/ML (20 ML MDV) ONE (11:01)
--- NOTE | 2020-02-16 11:02 | P.HPIM ---
History of Present Illness This is a pleasant 79 years old male with multiple medical problems as below, who was recently discharged from the hospital 1-2 days ago. That time he had bradycardia with heart rate in the 30s or 40s but he refused to do pacemaker after he went to prison he change his mind and decided to come to the hospital to place pacemaker . On admission his heart rate was low as 20, he was admitted to the ICU for further monitoring with some symptoms of nausea and vomiting, at certain point it became unresponsive and was going to code him however he woke up and now is going for temporal pacemaker . Patient also placed on normal saline at 50 mL per hour and dopamine drip at 2 mics. Cardiology team on the case. Patient was on liquids which is ordered, discussed with staff to check with cartilage team prior to giving it to the patient Labs and leukocytosis of 11.4 K. INR is 1.3. Sodium 136, potassium 5.8, creatinine 1.5. Troponin is 0.063. TSH is normal at 2.2 EKG showing quiet QRS rhythm with ventricular escape complexes at 46. QTC is 572 Chest x-ray: No acute process. Bilateral small pleural effusions and increased compared to recent exam. Minimal heart failure is possible Review of Systems CONSTITUTIONAL: No fever, no malaise, no fatigue. HEENT: No recent visual problems or hearing problems. Denied any sore throat. CARDIOVASCULAR: No orthopnea, PND, no palpitations, no syncope. PULMONARY: No shortness of breath, no cough, no hemoptysis. GASTROINTESTINAL: No diarrhea, no nausea, no vomiting, no abdominal pain. Normoactive bowel sounds. NEUROLOGICAL: No headaches, no weakness, no numbness. HEMATOLOGICAL: Denies any bleeding or petechiae. GENITOURINARY: Denies any burning micturition, frequency, or urgency. MUSCULOSKELETAL/RHEUMATOLOGICAL: Denies any joint pain, swelling, or any muscle pain. ENDOCRINE: Denies any polyuria or polydipsia. Past Medical History Past Medical History: Atrial Fibrillation, Coronary Artery Disease (CAD), Cancer, Heart Failure, COPD, Hyperlipidemia, Hypertension, Myocardial Infarction ([place]), Renal Disease Additional Past Medical History / Comment(s): R lung cancer with wedge resection-no chemo or radiation, severe pulmonary HTN, CKD stage III, anemia,hiatal hernia, constipation/benign polyp, bradycardia. Last Myocardial Infarction Date:: 2002 History of Any Multi-Drug Resistant Organisms: MRSA Date of last positivie culture/infection: 02/10/20 MDRO Source:: Buttock Past Surgical History: Appendectomy, Coronary Bypass/CABG, Heart Catheterization, Orthopedic Surgery Additional Past Surgical History / Comment(s): 2002 CABG 3 vessel, cardiac angioplasty, R lung wedge resection, R hip closed reduction/ORIF, EGD, colonoscopies/polypectgomies. Past Anesthesia/Blood Transfusion Reactions: No Reported Reaction Additional Past Anesthesia/Blood Transfusion Reaction / Comment(s): CLAUSTERPHOBIA. Pt has received blood in past without reaction. Past Psychological History: No Psychological Hx Reported Additional Psychological History / Comment(s): Pt resides at [facility] [place] for rehab. Smoking Status: Former smoker Past Alcohol Use History: None Reported Additional Past Alcohol Use History / Comment(s): started smoking at age 18 (1959), quit 2001 smoked 1 ppd. Past Drug Use History: None Reported - Past Family History Father Family Medical History: Cancer Additional Family Medical History / Comment(s): of pancreatic cancer Mother Family Medical History: Diabetes Mellitus Additional Family Medical History / Comment(s): AT AGE 90 WAS IN PRETTY GOOD HEALTH FROM OLD AGE Brother(s) Family Medical History: Diabetes Mellitus Additional Family Medical History / Comment(s): 2 BROTHERS HAVE DIABETES Medications and Allergies Home Medications Medication Instructions Recorded Confirmed Type Tiotropium 18 Mcg/Puff [Spiriva] 1 cap INHALATION RT-DAILY@0800 07/13/13 02/15/20 History Nitroglycerin Sl Tabs [Nitrostat] 0.4 mg SL Q5M PRN 03/19/16 02/15/20 History Ferrous Sulfate [Iron] 325 mg PO TID@0800,1200,1700 11/09/17 02/15/20 History Isosorbide Mononitrate [Isosorbide 30 mg PO BID@0800,1700 11/09/17 02/15/20 History Mononitrate ER] Ipratropium-Albuterol Nebulize 3 ml INHALATION RT-QID PRN 03/22/18 02/15/20 History [Duoneb 0.5 mg-3 mg/3 ml Soln] Apixaban [Eliquis] 2.5 mg PO BID@0800,1700 09/27/18 02/15/20 History Budesonide-Formot 160-4.5 Mcg 2 puff INHALATION RT-BID@0800,1700 09/25/19 02/15/20 History [Symbicort 160-4.5 Mcg Inhaler] Folic Acid 1 mg PO DAILY@1700 09/25/19 02/15/20 History Ascorbic Acid [Vitamin C] 250 mg PO DAILY@1700 02/09/20 02/15/20 History Multivitamins, Thera [Multivitamin 1 tab PO DAILY@1700 02/09/20 02/15/20 History (formulary)] cycloSPORINE 0.05% OPHTH SOLN 1 drop BOTH EYES Q12H 02/09/20 02/15/20 History [Restasis] Ibuprofen [Motrin] 400 mg PO Q6HR PRN tab 02/14/20 02/15/20 Rx Thiamine [Vitamin B-1] 100 mg PO DAILY@1200 tab 02/14/20 02/15/20 Rx Acetaminophen Tab [Tylenol] 650 mg PO Q6H PRN 02/15/20 02/15/20 History Ensure Clear 120 ml PO TID@0800,1200,1700 02/15/20 02/15/20 History Linezolid 600 mg PO BID@0800,2100 02/15/20 02/15/20 History Magnesium Hydroxide [Milk of 7,200 mg PO Q48H PRN 02/15/20 02/15/20 History Magnesia Concentrate] Magnesium Oxide [Mag-Ox] 400 mg PO BID@0800,1700 02/15/20 02/15/20 History Na Phos,M-B/Na Phos,Di-Ba [Fleet 133 ml RECTAL DAILY PRN 02/15/20 02/15/20 History Adult] Pantoprazole [Protonix] 40 mg PO DAILY@0600 02/15/20 02/15/20 History Potassium Chloride ER [K-Dur 20] 40 meq PO BID@0800,1700 02/15/20 02/15/20 History Simvastatin [Zocor] 20 mg PO HS@2100 02/15/20 02/15/20 History Spironolactone [Aldactone] 25 mg PO DAILY@0600 02/15/20 02/15/20 History Sulfamethox-Tmp 800-160Mg [Bactrim 1 tab PO BID@0800,2100 02/15/20 02/15/20 History DS 800-160 mg] Tamsulosin HCl [Flomax] 0.4 mg PO BID@0800,1700 02/15/20 02/15/20 History Theophylline 24 Hour [Fabrice-24] 200 mg PO DAILY@0800 02/15/20 02/15/20 History bisacodyL [Bisacodyl] 10 mg RECTAL DAILY PRN 02/15/20 02/15/20 History Allergies Allergy/AdvReac Type Severity Reaction Status Date / Time No Known Allergies Allergy Verified 02/15/20 19:26 Physical Exam Vitals: Vital Signs Temp Pulse Resp BP Pulse Ox 02/16/20 06:32 33 L 20 113/51 99 02/16/20 06:12 31 L 26 H 107/73 02/16/20 04:00 63 16 152/66 99 02/16/20 03:10 56 L 18 108/88 99 02/16/20 02:30 56 L 27 H 94/56 100 02/16/20 02:00 33 L 23 154/97 100 02/16/20 01:30 41 L 26 H 148/97 100 02/16/20 01:00 40 L 27 H 148/68 100 02/16/20 00:30 34 L 28 H 138/99 100 02/16/20 00:00 32 L 27 H 137/67 100 02/15/20 23:30 42 L 28 H 128/55 100 02/15/20 23:23 38 L 24 128/55 100 02/15/20 23:20 33 L 24 128/55 100 02/15/20 23:10 25 H 128/55 99 02/15/20 23:00 23 148/105 98 02/15/20 22:50 31 L 20 148/105 99 02/15/20 22:40 30 L 24 148/105 99 02/15/20 22:30 34 L 20 146/109 99 02/15/20 22:20 32 L 19 146/109 100 02/15/20 22:10 32 L 27 H 146/109 99 02/15/20 22:00 32 L 28 H 90/63 99 02/15/20 21:50 36 L 29 H 90/63 100 02/15/20 21:40 41 L 29 H 90/63 100 02/15/20 21:30 34 L 0 L 79/62 100 02/15/20 21:20 37 L 22 79/62 100 02/15/20 21:10 33 L 30 H 79/62 100 02/15/20 21:00 43 L 30 H 136/52 99 02/15/20 20:50 37 L 35 H 136/52 99 02/15/20 20:40 34 L 28 H 136/52 99 02/15/20 20:30 35 L 15 123/58 100 02/15/20 20:10 36 L 34 H 123/58 99 02/15/20 20:00 42 L 28 H 90/52 99 02/15/20 19:50 90/52 02/15/20 19:29 35 L 30 H 133/50 99 02/15/20 19:08 97.4 F L 35 L 17 133/50 97 Intake and Output 02/15/20 02/16/20 02/16/20 22:59 06:59 14:59 Other: Weight 92.4 kg -GENERAL: The patient is alert and oriented x3, not in any acute distress. Generally weak HEENT: Pupils are round and equally reacting to light. EOMI. No scleral icterus. No conjunctival pallor. Normocephalic, atraumatic. No pharyngeal erythema. No thyromegaly. CARDIOVASCULAR: S1 and S2 present. No murmurs, rubs, or gallops. PULMONARY: Chest is clear to auscultation, no wheezing or crackles. ABDOMEN: Soft, nontender, nondistended, normoactive bowel sounds. No palpable organomegaly. MUSCULOSKELETAL: No joint swelling or deformity. EXTREMITIES: No cyanosis, clubbing, or pedal edema. NEUROLOGICAL: Gross neurological examination did not reveal any focal deficits. SKIN: No rashes. No petechiae Results CBC & Chem 7: 02/15/20 19:30 02/16/20 06:23 Labs: Abnormal Lab Results - Last 24 Hours (Table) 02/15/20 02/15/20 02/15/20 Range/Units 19:30 19:30 19:30 WBC 11.4 H (3.8-10.6) k/uL RBC 4.00 L (4.30-5.90) m/uL Hgb 12.8 L (13.0-17.5) gm/dL Hct 38.8 L (39.0-53.0) % Neutrophils # 9.6 H (1.3-7.7) k/uL Lymphocytes # 0.9 L (1.0-4.8) k/uL PT 13.2 H (9.0-12.0) sec INR 1.3 H (<1.2) Sodium (137-145) mmol/L Potassium 5.5 H (3.5-5.1) mmol/L Chloride (98-107) mmol/L Carbon Dioxide (22-30) mmol/L Creatinine 1.44 H (0.66-1.25) mg/dL Glucose 117 H (74-99) mg/dL POC Glucose (mg/dL) (75-99) mg/dL Magnesium 2.4 H (1.6-2.3) mg/dL Total Bilirubin 1.4 H (0.2-1.3) mg/dL Troponin I (0.000-0.034) ng/mL Albumin 2.8 L (3.5-5.0) g/dL 02/15/20 02/15/20 02/15/20 Range/Units 19:30 20:57 23:51 WBC (3.8-10.6) k/uL RBC (4.30-5.90) m/uL Hgb (13.0-17.5) gm/dL Hct (39.0-53.0) % Neutrophils # (1.3-7.7) k/uL Lymphocytes # (1.0-4.8) k/uL PT (9.0-12.0) sec INR (<1.2) Sodium (137-145) mmol/L Potassium (3.5-5.1) mmol/L Chloride (98-107) mmol/L Carbon Dioxide (22-30) mmol/L Creatinine (0.66-1.25) mg/dL Glucose (74-99) mg/dL POC Glucose (mg/dL) (75-99) mg/dL Magnesium (1.6-2.3) mg/dL Total Bilirubin (0.2-1.3) mg/dL Troponin I 0.067 H* 0.066 H* 0.066 H* (0.000-0.034) ng/mL Albumin (3.5-5.0) g/dL 02/16/20 02/16/20 Range/Units 06:23 08:02 WBC (3.8-10.6) k/uL RBC (4.30-5.90) m/uL Hgb (13.0-17.5) gm/dL Hct (39.0-53.0) % Neutrophils # (1.3-7.7) k/uL Lymphocytes # (1.0-4.8) k/uL PT (9.0-12.0) sec INR (<1.2) Sodium 136 L (137-145) mmol/L Potassium 5.8 H (3.5-5.1) mmol/L Chloride 111 H (98-107) mmol/L Carbon Dioxide 19 L (22-30) mmol/L Creatinine 1.50 H (0.66-1.25) mg/dL Glucose 115 H (74-99) mg/dL POC Glucose (mg/dL) 112 H (75-99) mg/dL Magnesium 2.4 H (1.6-2.3) mg/dL Total Bilirubin (0.2-1.3) mg/dL Troponin I (0.000-0.034) ng/mL Albumin (3.5-5.0) g/dL Thrombosis Risk Factor Assmnt - Choose All That Apply Any of the Below Risk Factors Present?: Yes Each Factor Represents 1 point: Medical pt on bed rest, Obesity (BMI >25) Other Risk Factors: Yes Each Risk Factor Represents 3 Points: Age 75 years or older Other congenital or acquired thrombophilia - If yes, enter type in comment: No Thrombosis Risk Factor Assessment Total Risk Factor Score: 5 Thrombosis Risk Factor Assessment Level: High Risk Assessment and Plan Assessment: severe bradycardia (related to Chronic Atrial fibrillation with), admitted for pacemaker placement Multiple sacral decubitus with severe pain with surrounding cellulitis, culture is growing MRSA. Hyperkalemia Acute on chronic kidney injury History of nonsustained ventricular tachycardia History of Rectal pain and fecal impaction chronic Gait dysfunction Atrial fibrillation with bradycardia Generalized weaknessin Anemia, normocytic possibly multifactorial history of CAD CHF with chronic diastolic dysfunction History of COPD, asthma Hypertension Hyperlipidemia history of myocardial infarction History of right lung cancer with wedge resection History of severe pulmonary hypertension Chronic kidney disease stage III history of coronary artery disease, CABG Claustrophobia Remote history of nicotine dependence Acute renal failure Plan: this is a pleasant 79 years old male who presents with severe bradycardia. Mike feliz continued to be monitored in the ICU, cardiology consulted patient may need permanent pacemaker. Continue with Zyvox home medication for his MRSA in decubitus ulcer. Nephrology consult. One at the potassium level Labs and medication were reviewed.. Continue same treatment. Continue with s ymptomatic treatment. Resume home medication. Monitor lytes and vitals. DVT and GI prophylaxis. Further recommendations depends on the clinical course of the patient DVT prophylaxis: On Eliquis GI Prophylaxis: Ppi Prognosis is guarded
[2020-02-16] MEDS ORDERED: IV FLUID CONTINUATION 1,000 ML IV ONE (11:03)
[2020-02-16] MEDS ORDERED: fentaNYL (PF) 50 MCG/ML 2 ML AMP ONE (11:24)
[2020-02-16] MEDS ORDERED: LIDOCAINE 1% INJ 10MG/ML (20 ML MDV) SQ ONE (11:26)
[2020-02-16] MEDS ORDERED: fentaNYL (PF) 50 MCG/ML 2 ML AMP IVP ONE (11:28)
[2020-02-16] MEDS ORDERED: MIDAZOLAM 2 MG/2 ML VIAL IVP ONE (11:28)
[2020-02-16] MEDS: THIAMINE 100 MG TAB PO SCH (12:06)
[2020-02-16] MEDS: SODIUM CHLORIDE 0.9% 1,000 ML IV SCH ×2 (12:07→12:08)
[2020-02-16] MEDS ORDERED: INSULIN REGULAR 100 UNIT/ML VIAL IV ONE (12:27)
[2020-02-16] MEDS ORDERED: SODIUM BICARB 8.4% 50 ML SYR (1 MEQ/ML) IV STA (12:27)
[2020-02-16] MEDS ORDERED: DEXTROSE 50% SYRINGE 50 ML IVP STA (12:28)
--- NOTE | 2020-02-16 12:56 | P.NPCON ---
History of Present Illness - Reason for Consult acute renal failure - History of Present Illness Reason for consultation: Acute kidney injury History of present illness: Patient is a 79-year-old male seen in consultation for acute kidney injury. Patient's creatinine was 1.44 on admission and is 1.5 today. Patient was recently admitted earlier this week with weakness. He was noted to be bradycardic done but was refusing pacemaker placement. He was discharged to extended care facility but was sent back again due to shortness of breath and fatigue. Patient's heart rate was low in the 30s and this morning he required external pacing in the ICU. He just returned from temporary pacemaker placement . He is currently quite lethargic. Blood pressure is stable. He is on dopamine. Rivera catheter will be inserted. Potassium level was 5.5 yesterday and was 5.8 this morning. Kayexalate was ordered but wasn't given. Recent UA was benign. Baseline creatinine is near 1. He is on 0.9 at 50. Diuretics are held. He was also maintained on spironolactone outpatient. Potassium was actually low prior admission. Vital signs are stable. General: The patient appeared well nourished and normally developed. HEENT: Head exam is unremarkable. Neck is without jugular venous distension. LUNGS: Breath sounds decreased. HEART: Rate and Rhythm are regular. ABDOMEN: Soft, nontender. EXTREMITITES: 1+ edema. Past Medical History Past Medical History: Atrial Fibrillation, Coronary Artery Disease (CAD), Cancer, Heart Failure, COPD, Hyperlipidemia, Hypertension, Myocardial Infarction ([place]), Renal Disease Additional Past Medical History / Comment(s): R lung cancer with wedge resection-no chemo or radiation, severe pulmonary HTN, CKD stage III, anemia,hiatal hernia, constipation/benign polyp, bradycardia. Last Myocardial Infarction Date:: 2002 History of Any Multi-Drug Resistant Organisms: MRSA Date of last positivie culture/infection: 02/10/20 MDRO Source:: Buttock Past Surgical History: Appendectomy, Coronary Bypass/CABG, Heart Catheterization, Orthopedic Surgery Additional Past Surgical History / Comment(s): 2002 CABG 3 vessel, cardiac angioplasty, R lung wedge resection, R hip closed reduction/ORIF, EGD, colonoscopies/polypectgomies. Past Anesthesia/Blood Transfusion Reactions: No Reported Reaction Additional Past Anesthesia/Blood Transfusion Reaction / Comment(s): CLAUSTERPHOBIA. Pt has received blood in past without reaction. Past Psychological History: No Psychological Hx Reported Additional Psychological History / Comment(s): Pt resides at [facility] for rehab. Smoking Status: Former smoker Past Alcohol Use History: None Reported Additional Past Alcohol Use History / Comment(s): started smoking at age 18 (1959), quit 2001 smoked 1 ppd. Past Drug Use History: None Reported - Past Family History Father Family Medical History: Cancer Additional Family Medical History / Comment(s): of pancreatic cancer Mother Family Medical History: Diabetes Mellitus Additional Family Medical History / Comment(s): AT AGE 90 WAS IN PRETTY GOOD HEALTH FROM OLD AGE Brother(s) Family Medical History: Diabetes Mellitus Additional Family Medical History / Comment(s): 2 BROTHERS HAVE DIABETES Medications and Allergies Home Medications Medication Instructions Recorded Confirmed Type Tiotropium 18 Mcg/Puff [Spiriva] 1 cap INHALATION RT-DAILY@0800 07/13/13 02/15/20 History Nitroglycerin Sl Tabs [Nitrostat] 0.4 mg SL Q5M PRN 03/19/16 02/15/20 History Ferrous Sulfate [Iron] 325 mg PO TID@0800,1200,1700 11/09/17 02/15/20 History Isosorbide Mononitrate [Isosorbide 30 mg PO BID@0800,1700 11/09/17 02/15/20 History Mononitrate ER] Ipratropium-Albuterol Nebulize 3 ml INHALATION RT-QID PRN 03/22/18 02/15/20 History [Duoneb 0.5 mg-3 mg/3 ml Soln] Apixaban [Eliquis] 2.5 mg PO BID@0800,1700 09/27/18 02/15/20 History Budesonide-Formot 160-4.5 Mcg 2 puff INHALATION RT-BID@0800,1700 09/25/19 02/15/20 History [Symbicort 160-4.5 Mcg Inhaler] Folic Acid 1 mg PO DAILY@0 09/25/19 02/15/20 History Ascorbic Acid [Vitamin C] 250 mg PO DAILY@1700 02/09/20 02/15/20 History Multivitamins, Thera [Multivitamin 1 tab PO DAILY@1700 02/09/20 02/15/20 History (formulary)] cycloSPORINE 0.05% OPHTH SOLN 1 drop BOTH EYES Q12H 02/09/20 02/15/20 History [Restasis] Ibuprofen [Motrin] 400 mg PO Q6HR PRN tab 02/14/20 02/15/20 Rx Thiamine [Vitamin B-1] 100 mg PO DAILY@1200 tab 02/14/20 02/15/20 Rx Acetaminophen Tab [Tylenol] 650 mg PO Q6H PRN 02/15/20 02/15/20 History Ensure Clear 120 ml PO TID@0800,1200,1700 02/15/20 02/15/20 History Linezolid 600 mg PO BID@0800,2100 02/15/20 02/15/20 History Magnesium Hydroxide [Milk of 7,200 mg PO Q48H PRN 02/15/20 02/15/20 History Magnesia Concentrate] Magnesium Oxide [Mag-Ox] 400 mg PO BID@0800,1700 02/15/20 02/15/20 History Na Phos,M-B/Na Phos,Di-Ba [Fleet 133 ml RECTAL DAILY PRN 02/15/20 02/15/20 History Adult] Pantoprazole [Protonix] 40 mg PO DAILY@0600 02/15/20 02/15/20 History Potassium Chloride ER [K-Dur 20] 40 meq PO BID@0800,1700 02/15/20 02/15/20 History Simvastatin [Zocor] 20 mg PO HS@209902/15/20 02/15/20 History Spironolactone [Aldactone] 25 mg PO DAILY@0600 02/15/20 02/15/20 History Sulfamethox-Tmp 800-160Mg [Bactrim 1 tab PO BID@0800,2100 02/15/20 02/15/20 History DS 800-160 mg] Tamsulosin HCl [Flomax] 0.4 mg PO BID@0800,1700 02/15/20 02/15/20 History Theophylline 24 Hour [Fabrice-24] 200 mg PO DAILY@0800 02/15/20 02/15/20 History bisacodyL [Bisacodyl] 10 mg RECTAL DAILY PRN 02/15/20 02/15/20 History Allergies Allergy/AdvReac Type Severity Reaction Status Date / Time No Known Allergies Allergy Verified 02/15/20 19:26 Physical Exam Vitals: Vital Signs Temp Pulse Resp BP Pulse Ox 02/16/20 10:30 45 L 15 135/66 96 02/16/20 10:15 36 L 15 138/59 98 02/16/20 10:00 40 L 26 H 135/59 100 02/16/20 09:15 80 26 H 146/73 97 02/16/20 09:00 37 L 20 89/43 97 02/16/20 08:15 97.6 F 60 28 H 139/75 98 02/16/20 06:32 33 L 20 113/51 99 02/16/20 06:12 31 L 26 H 107/73 02/16/20 04:00 63 16 152/66 99 02/16/20 03:10 56 L 18 108/88 99 02/16/20 02:30 56 L 27 H 94/56 100 02/16/20 02:00 33 L 23 154/97 100 02/16/20 01:30 41 L 26 H 148/97 100 02/16/20 01:00 40 L 27 H 148/68 100 02/16/20 00:30 34 L 28 H 138/99 100 02/16/20 00:00 32 L 27 H 137/67 100 02/15/20 23:30 42 L 28 H 128/55 100 02/15/20 23:23 38 L 24 128/55 100 02/15/20 23:20 33 L 24 128/55 100 02/15/20 23:10 25 H 128/55 99 02/15/20 23:00 23 148/105 98 02/15/20 22:50 31 L 20 148/105 99 02/15/20 22:40 30 L 24 148/105 99 02/15/20 22:30 34 L 20 146/109 99 02/15/20 22:20 32 L 19 146/109 100 02/15/20 22:10 32 L 27 H 146/109 99 02/15/20 22:00 32 L 28 H 90/63 99 02/15/20 21:50 36 L 29 H 90/63 100 02/15/20 21:40 41 L 29 H 90/63 100 02/15/20 21:30 34 L 0 L 79/62 100 02/15/20 21:20 37 L 22 79/62 100 02/15/20 21:10 33 L 30 H 79/62 100 02/15/20 21:00 43 L 30 H 136/52 99 02/15/20 20:50 37 L 35 H 136/52 99 02/15/20 20:40 34 L 28 H 136/52 99 02/15/20 20:30 35 L 15 123/58 100 02/15/20 20:10 36 L 34 H 123/58 99 02/15/20 20:00 42 L 28 H 90/52 99 02/15/20 19:50 90/52 02/15/20 19:29 35 L 30 H 133/50 99 02/15/20 19:08 97.4 F L 35 L 17 133/50 97 Intake and Output 02/15/20 02/16/20 02/16/20 22:59 06:59 14:59 Intake Total 95 Output Total 0 Balance 95 Intake: IV 95 0.9 20 Output: Urine 0 Other: Voiding Method Urinal Weight 92.4 kg Results - Lab Results Most recent lab results Calcium 9.2 mg/dL (8.4-10.2) 02/16/20 06:23 Magnesium 2.4 mg/dL (1.6-2.3) H 02/16/20 06:23 02/15/20 19:30 02/16/20 06:23 Assessment and Plan Plan: Assessment: 1. Acute kidney injury secondary to ATN secondary to hemodynamic instability with component of cardiorenal syndrome. Creatinine 1.5 today. Recent UA benign. No hydronephrosis noted on recent CT. 2. Symptomatic bradycardia status post temporary pacer placement. Currently on dopamine. 3. Hyperkalemia secondary to spironolactone, acute kidney injury and metabolic acidosis. 4. Chronic diastolic CHF. 5. Metabolic acidosis secondary to acute kidney injury. Plan: 2 A of bicarb IV push, 10 units of IV insulin with an amp of D50 now. Repeat potassium level at 5 PM. Insert Rivera catheter. Strict is and os. Hold spironolactone. Avoid nephrotoxins. Continue to monitor renal function and urine output. Thank you for the consultation. I will continue to follow the patient with you during his hospital stay.
[2020-02-16] MEDS ORDERED: POTASSIUM CHLORIDE ER 20 MEQ TAB.ER PO SCH (17:00)
[2020-02-16] MEDS: SYMBICORT 160-4.5 MCG INHALER INHALATION SCH (19:16)
[2020-02-16] MEDS: MAGNESIUM OXIDE 400 MG TAB PO SCH (19:44)
[2020-02-16] MEDS: ASCORBIC ACID 500 MG TAB PO SCH (19:44)
[2020-02-16] MEDS: TAMSULOSIN 0.4 MG CAP.ER.24H PO SCH (19:44)
[2020-02-16] MEDS: ATORVASTATIN 10 MG TAB PO SCH (20:02)
[2020-02-16] MEDS: SODIUM BICARBONATE TAB 650 MG TAB PO SCH (20:02)
[2020-02-16] MEDS: APIXABAN 2.5 MG TABLET PO SCH (20:12)
[2020-02-16] MEDS: LINEZOLID 600 MG TAB PO SCH (20:12)
[2020-02-16] MEDS: ISOSORBIDE MONONITRATE ER 30 MG TAB.ER.24H PO SCH (20:12)
--- NOTE | 2020-02-16 22:57 | PCN ---
PROCEDURE NOTE DATE OF SERVICE: February 15, 2020 PERFORMING PHYSICIAN: Augustine Samayoa MD. PROCEDURE PERFORMED: Successful placement of transvenous temporary pacemaker from right common femoral vein. INDICATION: This is a 79-year-old gentleman who was admitted to the hospital earlier today with complete heart block and underwent transvenous temporary pacemaker by Dr. Hair. He was not capturing earlier today where he was brought down to the molder labels. APPROACH: Right common femoral vein. COMPLICATION: None. LEVEL OF SEDATION: Moderate with sedation length of 15 minutes. PROCEDURE DESCRIPTION: Under fluoroscopy guidance, I tried to adjust the prior pacemaker lead, but that was unsuccessful. Because of that, the lead was pulled out and I placed a new lead under fluoroscopic guidance with a balloon tip. The lead was advanced all the way to the right ventricle. The pacer was checked under fluoroscopic guidance before the patient leaving the room. The pacer was placed on 60 heart beats per minute with the 5 of amp. POSTPROCEDURE MANAGEMENT: 1. Secure the pacer lead in the in the right groin. 2. Follow up with the patient. MMODL / IJN: [id number] /
[2020-02-17 05:39] LABS: Basophils # (A) 0.1 k/uL (0-0.2); Basophils % (A) 0 %; Eosinophils # (A) 0.1 k/uL (0-0.7); Eosinophils % (A) 1 %; HCT 40.5 % (39.0-53.0); HGB 12.9 gm/dL (13.0-17.5); Lymphocytes # (A) 0.8 k/uL (1.0-4.8); Lymphocytes % (A) 5 %; MCH 31.5 pg (25.0-35.0); MCV 98.6 fL (80.0-100.0); Macrocytosis Slight; Mean Platelet Volume 8.1; Monocytes # (A) 0.9 k/uL (0-1.0); Monocytes % (A) 6 %; Neutrophils # (A) 12.9 k/uL (1.3-7.7); Neutrophils % (A) 86 %; Platelet Count 165 k/uL (150-450); RBC 4.11 m/uL (4.30-5.90); RDW 15.5 % (11.5-15.5); WBC 15.1 k/uL (3.8-10.6)
[2020-02-17 05:53] LABS: Albumin 2.7 g/dL (3.5-5.0); Calcium 8.5 mg/dL (8.4-10.2); Potassium 4.8 mmol/L (3.5-5.1); Total Bilirubin 1.6 mg/dL (0.2-1.3); Total Protein 6.4 g/dL (6.3-8.2)
[2020-02-17] MEDS ORDERED: SPIRONOLACTONE 25 MG TAB PO SCH (06:00)
[2020-02-17] MEDS: SODIUM CHLORIDE 0.9% 1,000 ML IV SCH ×2 (06:20→06:21)
[2020-02-17] MEDS: DOPamine DRIP 800 MG in DEXTROSE/WATER 1 250ML.BAG IV SCH (06:21)
[2020-02-17] MEDS: PANTOPRAZOLE 40 MG TABLET PO SCH (06:29)
[2020-02-17] MEDS: SYMBICORT 160-4.5 MCG INHALER INHALATION SCH ×2 (09:53→19:31)
[2020-02-17] MEDS: IPRATROPIUM 0.5 MG/2.5 ML NEBU INHALATION SCH ×4 (09:53→19:55)
[2020-02-17] MEDS: LINEZOLID 600 MG TAB PO SCH ×2 (10:07→20:54)
[2020-02-17] MEDS: SODIUM BICARBONATE TAB 650 MG TAB PO SCH ×2 (10:07→20:54)
[2020-02-17] MEDS: ASPIRIN 325 MG TAB PO SCH (10:07)
[2020-02-17] MEDS: APIXABAN 2.5 MG TABLET PO SCH ×2 (10:07→17:12)
[2020-02-17] MEDS: MAGNESIUM OXIDE 400 MG TAB PO SCH ×2 (10:08→17:12)
[2020-02-17] MEDS: TAMSULOSIN 0.4 MG CAP.ER.24H PO SCH ×2 (10:08→17:12)
[2020-02-17] MEDS: THEOPHYLLINE 24 HOUR 200 MG CAP.ER.24H PO SCH (10:08)
--- NOTE | 2020-02-17 10:10 | P.PN ---
Subjective Patient is seen in follow-up for acute kidney injury. Renal function better. Hemodynamically stable. Awake and alert. Currently on 4 L nasal cannula. Vital signs are stable. General: The patient appeared well nourished and normally developed. HEENT: Head exam is unremarkable. Neck is without jugular venous distension. LUNGS: Breath sounds decreased. HEART: Rate and Rhythm are regular. ABDOMEN: Soft, nontender. EXTREMITITES: 1+ edema. Objective - Vital Signs Vital signs: Vital Signs Temp 98.0 F 02/17/20 04:00 Pulse 60 02/17/20 07:30 Resp 18 02/17/20 07:30 BP 133/79 02/17/20 07:30 Pulse Ox 96 02/17/20 07:00 Intake & Output 02/16/20 02/17/20 02/17/20 18:59 06:59 18:59 Intake Total 345 840 200 Output Total 225 560 145 Balance 120 280 55 Weight 91.4 kg Intake: IV 345 600 200 0.9 270 600 200 Oral 240 Output: Urine 225 560 145 Other: Voiding Method Indwelling Catheter Indwelling Catheter - Labs CBC & Chem 7: 02/17/20 05:10 02/17/20 05:10 Labs: Abnormal Lab Results - Last 24 Hours (Table) 02/16/20 02/17/20 02/17/20 Range/Units 16:51 05:10 05:10 WBC 15.1 H (3.8-10.6) k/uL RBC 4.11 L (4.30-5.90) m/uL Hgb 12.9 L (13.0-17.5) gm/dL Neutrophils # 12.9 H (1.3-7.7) k/uL Lymphocytes # 0.8 L (1.0-4.8) k/uL Potassium 5.2 H (3.5-5.1) mmol/L Chloride 113 H (98-107) mmol/L BUN 22 H (9-20) mg/dL Glucose 100 H (74-99) mg/dL Total Bilirubin 1.6 H (0.2-1.3) mg/dL Alkaline Phosphatase 34 L (38-126) U/L Albumin 2.7 L (3.5-5.0) g/dL Assessment and Plan Plan: Assessment: 1. Acute kidney injury secondary to ATN secondary to hemodynamic instability with component of cardiorenal syndrome. Creatinine 1.24 today. Recent UA benign. No hydronephrosis noted on recent CT. 2. Symptomatic bradycardia status post temporary pacer placement. Currently on dopamine. 3. Hyperkalemia secondary to spironolactone, acute kidney injury and metabolic acidosis. Improved. 4. Chronic diastolic CHF. 5. Metabolic acidosis secondary to acute kidney injury. Better. Maintained on oral bicarbonate. Plan: Avoid nephrotoxins. Continue to monitor renal function and urine output. Wean dopamine per cardiology. Diet to be initiated. Permanent pacemaker pending.
[2020-02-17] MEDS: ISOSORBIDE MONONITRATE ER 30 MG TAB.ER.24H PO SCH ×2 (10:34→17:12)
[2020-02-17] MEDS: THIAMINE 100 MG TAB PO SCH (12:20)
--- NOTE | 2020-02-17 13:10 | P.PN ---
Subjective Progress Note Date: 02/17/20 HISTORY OF PRESENT ILLNESS: patient examined this morning at the bedside. Patient remains slightly confused and impulsive. Patients temperature pacemaker became dislodged yesterday and patient underwent a new temporary pacemaker insertion per Dr. Samayoa yesterday. patient also remains on dopamine drip. He denies chest pain or pressure. Denies shortness of breath. patient's potassium 4.8 today. PHYSICAL EXAM: VITAL SIGNS: Reviewed. GENERAL: Well-developed in no acute distress. NECK: Supple. No JVD or thyromegaly LUNGS: Respirations even and unlabored. Lungs essentially clear to auscultation bilaterally. HEART: Telemetry reveals paced rhythm at 60 bpm. Regular rate and rhythm. S1 and S2 heard. EXTREMITIES: Normal range of motion. No clubbing or cyanosis. Peripheral pulses intact. No lower extremity edema ASSESSMENT: #1 bradycardia with evidence of significant pauses, could be secondary to hyperkalemia #2 hyperkalemia, potassium 5.8 #3 recent hospitalization with hypokalemia #4 persistent atrial fibrillation #5 coronary artery disease with prior bypass surgery #6 hypertension #7 hyperlipidemia #8 COPD #9 pressure ulcer of the sacral region, stage II PLAN: Case discussed with Dr. Hair via phone today. He states patient is a poor candidate for pacemaker insertion secondary to infected decubitus pressure ulcer. He also states patient did not want a permanent pacemaker placed during his previous admission to the hospital. He is hoping that patient's bradycardia and pauses will resolve now that potassium is within normal limits. He recommends turning pacemaker down to 40bpm to see if patient can tolerate. Discussed with nursing. Further recommendations pending patient course. Nurse practitioner note has been reviewed by physician. Signing provider agrees with the documented findings, assessment, and plan of care. Objective - Vital Signs Vital signs: Vital Signs Temp 97.8 F 02/17/20 12:00 Pulse 60 02/17/20 12:00 Resp 24 02/17/20 12:00 BP 140/65 02/17/20 12:00 Pulse Ox 96 02/17/20 12:00 Intake & Output 02/16/20 02/17/20 02/17/20 18:59 06:59 18:59 Intake Total 345 840 300 Output Total 225 560 205 Balance 120 280 95 Weight 91.4 kg 91.4 kg Intake: IV 345 600 300 0.9 270 600 300 Oral 240 Output: Urine 225 560 205 Other: Voiding Method Indwelling Catheter Indwelling Catheter Indwelling Catheter - Labs CBC & Chem 7: 02/17/20 05:10 02/17/20 05:10 Labs: Abnormal Lab Results - Last 24 Hours (Table) 02/16/20 02/17/20 02/17/20 Range/Units 16:51 05:10 05:10 WBC 15.1 H (3.8-10.6) k/uL RBC 4.11 L (4.30-5.90) m/uL Hgb 12.9 L (13.0-17.5) gm/dL Neutrophils # 12.9 H (1.3-7.7) k/uL Lymphocytes # 0.8 L (1.0-4.8) k/uL Potassium 5.2 H (3.5-5.1) mmol/L Chloride 113 H (98-107) mmol/L BUN 22 H (9-20) mg/dL Glucose 100 H (74-99) mg/dL Total Bilirubin 1.6 H (0.2-1.3) mg/dL Alkaline Phosphatase 34 L (38-126) U/L Albumin 2.7 L (3.5-5.0) g/dL
[2020-02-17] MEDS ORDERED: FUROSEMIDE 10 MG/ML 2 ML VIAL IV ONE (16:00)
[2020-02-17] MEDS: IPRATROPIUM-ALBUTEROL 3 ML NEB INHALATION PRN ×2 (16:01→19:30)
[2020-02-17] MEDS: ASCORBIC ACID 500 MG TAB PO SCH (17:12)
[2020-02-17] MEDS: ATORVASTATIN 10 MG TAB PO SCH (20:54)
--- NOTE | 2020-02-17 21:08 | P.PN ---
Subjective Progress Note Date: 02/17/20 Principal diagnosis: Bradycardia This patient was cared for during of federal and state declared state of emergency secondary to COVID 19 Mr. Mahmood is a 79-year-old male with a past medical history of coronary artery disease, atrial fibrillation, congestive heart failure, COPD, hypertension, hyperlipidemia, CKD stage III admitted to the ICU for bradycardia. At the time of admission patient's heart rate was as low as 20. Patient was recently discharged from the hospital, at that time his heart rate was in 30s to 40s but he refused to have a pacemaker placed. [facility] and was sent here for bradycardia. Patient is seen and examined in the ICU today. As per nursing staff report no acute events. He is on a temporary maker. He is on a dopamine drip. He is resting comfortably in bed appears to be in no acute distress. He denies having any fevers chills or rigors. No chest pain or palpitations. No abdominal pain nausea vomiting or diarrhea. On reviewing the patient's vitals blood pressure 125/56, heart rate he is paced to 40, saturating at 98% on room air. Reviewing the labs white count of 10 point hemoglobin 12 sodium 142, potassium 4.8, chloride 113, BUN 22, creatinine one- point. Albumin 2.7. Active Medications Albuterol/Ipratropium (Ipratropium-Albuterol 3 Ml Neb) 3 ml INHALATION RT-QID PRN PRN Reason: Shortness Of Breath Last Admin: 02/17/20 19:30 Dose: 3 ml Documented by: Apixaban (Apixaban 2.5 Mg Tablet) 2.5 mg PO BID@0800,1700 [facility] Last Admin: 02/17/20 17:12 Dose: 2.5 mg Documented by: Ascorbic Acid (Ascorbic Acid 500 Mg Tab) 500 mg PO DAILY@1700 [facility] Last Admin: 02/17/20 17:12 Dose: 500 mg Documented by: Aspirin (Aspirin 325 Mg Tab) 325 mg PO DAILY [facility] Last Admin: 02/17/20 10:07 Dose: 325 mg Documented by: Atorvastatin Calcium (Atorvastatin 10 Mg Tab) 10 mg PO HS@2100 [facility] Last Admin: 02/17/20 20:54 Dose: 10 mg Documented by: Budesonide/Formoterol Fumarate (Symbicort 160-4.5 Mcg Inhaler) 2 puff INHALATION RT-BID@0800,1700 [facility] Last Admin: 02/17/20 19:31 Dose: 2 puff Documented by: Dopamine HCl/Dextrose 800 mg/ (IV Solution) 250 mls @ 3.249 mls/hr IV .Q24H [facility]; Protocol Last Titration: 02/17/20 16:28 Dose: 0 mcg/kg/min, 0 mls/hr Documented by: Sodium Chloride (Saline 0.9%) 1,000 mls @ 50 mls/hr IV .Q20H [facility] Last Admin: 02/17/20 06:20 Dose: 50 mls/hr Documented by: Sodium Chloride (Saline 0.9%) 1,000 mls @ 50 mls/hr IV .Q20H [facility] Last Admin: 02/17/20 06:21 Dose: Not Given Documented by: Ipratropium [place] (Ipratropium 0.5 Mg/2.5 Ml Nebu) 0.5 mg INHALATION RT-QID [facility] Last Admin: 02/17/20 19:55 Dose: Not Given Documented by: Isosorbide Mononitrate (Isosorbide Mononitrate Er 30 Mg Tab.Er.24h) 30 mg PO BID@0800,1700 [facility] Last Admin: 02/17/20 17:12 Dose: 30 mg Documented by: Linezolid (Linezolid 600 Mg Tab) 600 mg PO BID@0800,2100 [facility] Last Admin: 02/17/20 20:54 Dose: 600 mg Documented by: Magnesium Hydroxide (Magnesium Hydroxide 2,400 Mg/10 Ml Cup) 7,200 mg PO Q48H PRN PRN Reason: Constipation Magnesium Oxide (Magnesium Oxide 400 Mg Tab) 400 mg PO BID@0800,1700 [facility] Last Admin: 02/17/20 17:12 Dose: 400 mg Documented by: Nitroglycerin (Nitroglycerin Sl Tabs 0.4 Mg Tab) 0.4 mg SUBLINGUAL Q5M PRN PRN Reason: Chest Pain Pantoprazole Sodium (Pantoprazole 40 Mg Tablet) 40 mg PO DAILY@0600 [facility] Last Admin: 02/17/20 06:29 Dose: 40 mg Documented by: Sodium Bicarbonate (Sodium Bicarbonate Tab 650 Mg Tab) 650 mg PO BID [facility] Last Admin: 02/17/20 20:54 Dose: 650 mg Documented by: Sodium Biphosphate/Sodium Phosphate (Na Phos,M-B/Na Phos,Di-Ba 133 Ml Enema) 133 ml RECTAL DAILY PRN PRN Reason: Constipation Tamsulosin HCl (Tamsulosin 0.4 Mg Cap.Er.24h) 0.4 mg PO BID@0800,1700 [facility] Last Admin: 02/17/20 17:12 Dose: 0.4 mg Documented by: Theophylline (Theophylline 24 Hour 200 Mg Cap.Er.24h) 200 mg PO DAILY@0800 [facility] Last Admin: 02/17/20 10:08 Dose: 200 mg Documented by: Thiamine HCl (Thiamine 100 Mg Tab) 100 mg PO DAILY@1200 [facility] Last Admin: 02/17/20 12:20 Dose: 100 mg Documented by: Objective - Vital Signs Vital signs: Vital Signs Temp 98.2 F 02/17/20 16:00 Pulse 63 02/17/20 17:00 Resp 20 02/17/20 17:00 BP 138/78 02/17/20 17:00 Pulse Ox 96 02/17/20 17:00 Intake & Output 02/16/20 02/17/20 02/17/20 18:59 06:59 18:59 Intake Total 345 840 662.036 Output Total 225 560 320 Balance 120 280 342.036 Weight 91.4 kg 91.4 kg Intake: IV 345 600 550 0.9 270 600 550 Intake, IV Titration 112.036 Amount DOPamine DRIP 800 mg In 112.036 Dextrose/Water 1 250ml. bag @ 2 MCG/KG/MIN 3.249 mls/hr IV .Q24H [facility] Rx#: [id number] Oral 240 Output: Urine 225 560 320 Other: Voiding Method Indwelling Catheter Indwelling Catheter Indwelling Catheter - Exam GENERAL: The patient is alert and oriented x3 . Chronically ill appearing. HEENT: No pallor or octerus CARDIOVASCULAR: S1 and S2 present. No murmurs, rubs, or gallops. PULMONARY: Chest is clear to auscultation, no wheezing or crackles. ABDOMEN: Soft, nontender, nondistended, normoactive bowel sounds. No palpable organomegaly. MUSCULOSKELETAL: No joint swelling or deformity. EXTREMITIES: Mild pedal edema. NEUROLOGICAL: Gross neurological examination did not reveal any focal deficits. SKIN: Stage 2 sacral decubitus ulcer - Labs CBC & Chem 7: 02/17/20 05:10 02/17/20 05:10 Labs: Abnormal Lab Results - Last 24 Hours (Table) 02/17/20 02/17/20 Range/Units 05:10 05:10 WBC 15.1 H (3.8-10.6) k/uL RBC 4.11 L (4.30-5.90) m/uL Hgb 12.9 L (13.0-17.5) gm/dL Neutrophils # 12.9 H (1.3-7.7) k/uL Lymphocytes # 0.8 L (1.0-4.8) k/uL Chloride 113 H (98-107) mmol/L BUN 22 H (9-20) mg/dL Glucose 100 H (74-99) mg/dL Total Bilirubin 1.6 H (0.2-1.3) mg/dL Alkaline Phosphatase 34 L (38-126) U/L Albumin 2.7 L (3.5-5.0) g/dL Assessment and Plan Assessment: ASSESSMENT Severe bradycardia had temporary pacemaker placement Multiple sacral decubitus with severe pain with surrounding cellulitis, culture is growing MRSA. Hyperkalemia Acute on chronic kidney injury History of nonsustained ventricular tachycardia History of Rectal pain and fecal impaction chronic Gait dysfunction Atrial fibrillation with bradycardia Generalized weaknessin Anemia, normocytic possibly multifactorial history of CAD CHF with chronic diastolic dysfunction History of COPD, asthma Hypertension Hyperlipidemia history of myocardial infarction History of right lung cancer with wedge resection History of severe pulmonary hypertension Chronic kidney disease stage III history of coronary artery disease, CABG Claustrophobia Remote history of nicotine dependence Plan: Patient to be monitored in the ICU setting. He has a temporary pacemaker, cardiology on board and planning on permanent pacemaker placement. Patient has history of MRSA infection of the sacral decubitus ulcers. He is continued on Zyvox and ID consult has been placed. Due to acute kidney injury patient is being followed up by nephrology. Continue with the rest of his current medication regimen. Continue with GI/DVT prophylaxis. Further recommendations to follow depending on the progress of the patient.
[2020-02-18] MEDS: SODIUM CHLORIDE 0.9% 1,000 ML IV SCH ×3 (02:09→21:01)
[2020-02-18 03:46] LABS: Basophils % (A) 0 %; Eosinophils # (A) 0.2 k/uL (0-0.7); Eosinophils % (A) 2 %; HCT 33.4 % (39.0-53.0); HGB 10.9 gm/dL (13.0-17.5); Lymphocytes # (A) 0.6 k/uL (1.0-4.8); Lymphocytes % (A) 6 %; MCHC 32.5 g/dL (31.0-37.0); MCV 98.5 fL (80.0-100.0); Macrocytosis Slight; Mean Platelet Volume 8.4; Monocytes % (A) 10 %; Neutrophils # (A) 7.7 k/uL (1.3-7.7); Neutrophils % (A) 81 %; Platelet Count 143 k/uL (150-450); RBC 3.39 m/uL (4.30-5.90); RDW 15.3 % (11.5-15.5); WBC 9.6 k/uL (3.8-10.6)
[2020-02-18 04:01] LABS: Albumin 2.2 g/dL (3.5-5.0); C Reactive Protein 68.4 mg/L (<10.0); Calcium 7.7 mg/dL (8.4-10.2); Potassium 3.9 mmol/L (3.5-5.1); Total Bilirubin 1.3 mg/dL (0.2-1.3); Total Protein 5.3 g/dL (6.3-8.2)
[2020-02-18 04:49] LABS: Erythrocyte Sedimentation Rate 22 mm/hr (0-15)
[2020-02-18] MEDS: DOPamine DRIP 800 MG in DEXTROSE/WATER 1 250ML.BAG IV SCH (05:16)
[2020-02-18] MEDS: PANTOPRAZOLE 40 MG TABLET PO SCH (06:21)
[2020-02-18] MEDS: IPRATROPIUM 0.5 MG/2.5 ML NEBU INHALATION SCH ×4 (07:41→20:42)
[2020-02-18] MEDS: SYMBICORT 160-4.5 MCG INHALER INHALATION SCH ×2 (07:41→20:42)
--- NOTE | 2020-02-18 09:41 | P.PN ---
Subjective Progress Note Date: 02/18/20 HISTORY OF PRESENT ILLNESS: Patient examined this morning at the bedside. Patient remains slightly confused. Telemetry reveals atrial fibrillation with heart rate in the 80s. Temporary venous pacer remains intact and on standby. Dopamine discontinued yesterday. PHYSICAL EXAM: VITAL SIGNS: Reviewed. GENERAL: Well-developed in no acute distress. NECK: Supple. No JVD or thyromegaly LUNGS: Respirations even and unlabored. Lungs essentially clear to auscultation bilaterally. HEART: Irregular rate and rhythm. S1 and S2 heard. EXTREMITIES: Normal range of motion. No clubbing or cyanosis. Peripheral pulses intact. No lower extremity edema ASSESSMENT: #1 bradycardia with evidence of significant pauses, could be secondary to hyper kalemia #2 hyperkalemia, potassium 5.8 #3 recent hospitalization with hypokalemia #4 persistent atrial fibrillation #5 coronary artery disease with prior bypass surgery #6 hypertension #7 hyperlipidemia #8 COPD #9 pressure ulcer of the sacral region, stage II PLAN: Patients heart rate has improved. He is currently not being paced and is in afib with a heart rate in the 80s. Leave TVP in at this time and continue to monitor telemetry Further recommendations pending patient course Nurse practitioner note has been reviewed by physician. Signing provider agrees with the documented findings, assessment, and plan of care. Objective - Vital Signs Vital signs: Vital Signs Temp 97.5 F L 02/18/20 09:00 Pulse 59 L 02/18/20 09:00 Resp 20 02/18/20 09:00 BP 124/66 02/18/20 09:00 Pulse Ox 95 02/18/20 09:00 Intake & Output 02/17/20 02/18/20 02/18/20 18:59 06:59 18:59 Intake Total 694.951 4948 150 Output Total 570 875 110 Balance 192.036 155 40 Weight 91.4 kg 90.5 kg Intake: IV 650 550 150 0.9 650 550 150 Intake, IV Titration 112.036 Amount DOPamine DRIP 800 mg In 112.036 Dextrose/Water 1 250ml. bag @ 2 MCG/KG/MIN 3.249 mls/hr IV .Q24H [facility] Rx#: [id number] Oral 480 Output: Urine 570 875 110 Other: Voiding Method Indwelling Catheter Indwelling Catheter - Labs CBC & Chem 7: 02/18/20 03:38 12/06/20 03:38 Labs: Abnormal Lab Results - Last 24 Hours (Table) 02/18/20 02/18/20 Range/Units 03:38 03:38 RBC 3.39 L (4.30-5.90) m/uL Hgb 10.9 L (13.0-17.5) gm/dL Hct 33.4 L (39.0-53.0) % Plt Count 143 L (150-450) k/uL Lymphocytes # 0.6 L (1.0-4.8) k/uL ESR 22 H (0-15) mm/hr Sodium 134 L (137-145) mmol/L Chloride 108 H (98-107) mmol/L Glucose 127 H (74-99) mg/dL Calcium 7.7 L (8.4-10.2) mg/dL Alkaline Phosphatase 32 L (38-126) U/L C-Reactive Protein 68.4 H (<10.0) mg/L Total Protein 5.3 L (6.3-8.2) g/dL Albumin 2.2 L (3.5-5.0) g/dL
--- NOTE | 2020-02-18 10:04 | P.PN ---
Subjective Patient is seen in follow-up for acute kidney injury. Renal function continues to improve. Hemodynamically stable. Awake and alert. Currently on 4 L nasal cannula. He is in A. fib. Vital signs are stable. General: The patient appeared well nourished and normally developed. HEENT: Head exam is unremarkable. Neck is without jugular venous distension. LUNGS: Breath sounds decreased. HEART: Rate and Rhythm are regular. ABDOMEN: Soft, nontender. EXTREMITITES: 1+ edema. Objective - Vital Signs Vital signs: Vital Signs Temp 97.5 F L 02/18/20 09:00 Pulse 59 L 02/18/20 09:00 Resp 20 02/18/20 09:00 BP 124/66 02/18/20 09:00 Pulse Ox 95 02/18/20 09:00 Intake & Output 02/17/20 02/18/20 02/18/20 18:59 06:59 18:59 Intake Total 991.642 2069 150 Output Total 570 875 110 Balance 192.036 155 40 Weight 91.4 kg 90.5 kg Intake: IV 650 550 150 0.9 650 550 150 Intake, IV Titration 112.036 Amount DOPamine DRIP 800 mg In 112.036 Dextrose/Water 1 250ml. bag @ 2 MCG/KG/MIN 3.249 mls/hr IV .Q24H [facility] Rx#: [id number] Oral 480 Output: Urine 570 875 110 Other: Voiding Method Indwelling Catheter Indwelling Catheter - Labs CBC & Chem 7: 02/18/20 03:38 02/18/20 03:38 Labs: Abnormal Lab Results - Last 24 Hours (Table) 02/18/20 02/18/20 Range/Units 03:38 03:38 RBC 3.39 L (4.30-5.90) m/uL Hgb 10.9 L (13.0-17.5) gm/dL Hct 33.4 L (39.0-53.0) % Plt Count 143 L (150-450) k/uL Lymphocytes # 0.6 L (1.0-4.8) k/uL ESR 22 H (0-15) mm/hr Sodium 134 L (137-145) mmol/L Chloride 108 H (98-107) mmol/L Glucose 127 H (74-99) mg/dL Calcium 7.7 L (8.4-10.2) mg/dL Alkaline Phosphatase 32 L (38-126) U/L C-Reactive Protein 68.4 H (<10.0) mg/L Total Protein 5.3 L (6.3-8.2) g/dL Albumin 2.2 L (3.5-5.0) g/dL Assessment and Plan Plan: Assessment: 1. Acute kidney injury secondary to ATN secondary to hemodynamic instability with component of cardiorenal syndrome. Creatinine 1.1 today. Recent UA benign. No hydronephrosis noted on recent CT. 2. Symptomatic bradycardia status post temporary pacer placement. Status post dopamine. 3. Hyperkalemia secondary to spironolactone, acute kidney injury and metabolic acidosis. Improved. 4. Chronic diastolic CHF. 5. Metabolic acidosis secondary to acute kidney injury. Better. Maintained on oral bicarbonate. 6. A. fib. Cardiology following. 7. Lower extremity edema. Plan: Avoid nephrotoxins. Continue to monitor renal function and urine output. Permanent pacemaker pending. Repeat Lasix 20 mg IV once today. Replace potassium. 20 mEq once today.
[2020-02-18] MEDS ORDERED: Potassium Replacement Protocol 1 EACH MISC MISCELLANE PRN (10:14)
[2020-02-18] MEDS: ISOSORBIDE MONONITRATE ER 30 MG TAB.ER.24H PO SCH ×2 (10:15→16:43)
[2020-02-18] MEDS: TAMSULOSIN 0.4 MG CAP.ER.24H PO SCH ×2 (10:15→16:43)
[2020-02-18] MEDS: ASPIRIN 325 MG TAB PO SCH (10:16)
[2020-02-18] MEDS: THEOPHYLLINE 24 HOUR 200 MG CAP.ER.24H PO SCH (10:16)
[2020-02-18] MEDS: LINEZOLID 600 MG TAB PO SCH ×2 (10:17→21:01)
[2020-02-18] MEDS: MAGNESIUM OXIDE 400 MG TAB PO SCH ×2 (10:17→18:17)
[2020-02-18] MEDS: APIXABAN 2.5 MG TABLET PO SCH ×2 (10:17→18:17)
[2020-02-18] MEDS: SODIUM BICARBONATE TAB 650 MG TAB PO SCH ×2 (10:17→21:01)
[2020-02-18] MEDS ORDERED: POTASSIUM BICARBONATE/CIT AC 20 MEQ TABLET.EFF NG-TUBE ONE (10:30)
[2020-02-18] MEDS ORDERED: FUROSEMIDE 10 MG/ML 2 ML VIAL IV ONE (11:00)
[2020-02-18] MEDS: THIAMINE 100 MG TAB PO SCH (12:25)
[2020-02-18] MEDS: ASCORBIC ACID 500 MG TAB PO SCH (18:17)
[2020-02-18] MEDS: ATORVASTATIN 10 MG TAB PO SCH (21:01)
--- NOTE | 2020-02-18 21:52 | P.CONS ---
History of Present Illness - Reason for Consult Consult date: 02/18/20 MRSA wound and need for pacemaker Requesting physician: Sharon Montes - Chief Complaint weakness x few days - History of Present Illness Patient is a 79-year male presenting to the ER at [facility] on February 15, 2020 for evaluation of shortness of breath and fatigue apparently the patient was in the hospital recently with similar symptoms the patient was noticed to have heart rate in 30s and 40s and was advised a pacemaker however the patient refused and the patient was sent home without a pacemaker insertion patient presented back with similar symptoms and was noticed to have a significant bradycardia arrhythmia with heart rates in the 30s patient has been evaluated by cardiology services in this patient who did have a transvenous temporary pacemaker from the right common femoral we will and the patient heart rate is currently within normal limits patient apparently needs a permanent pacemaker placement however he was noticed to have a small wound on his right gluteal area which was cultured possible on his last visit on 1127 which grew MRSA I was asked to see the patient regarding clearance for the pacemaker placement patient is currently afebrile patient is breathing comfortably denies having any chest pain, no vomiting or pain to the gluteal wound area. Review of Systems Positive point has been mentioned in HPI rest of the systems are negative. Past Medical History Past Medical History: Atrial Fibrillation, Coronary Artery Disease (CAD), Cancer, Heart Failure, COPD, Hyperlipidemia, Hypertension, Myocardial Infarction ([place]), Renal Disease Additional Past Medical History / Comment(s): R lung cancer with wedge resection-no chemo or radiation, severe pulmonary HTN, CKD stage III, anemia,hiatal hernia, constipation/benign polyp, bradycardia. Last Myocardial Infarction Date:: 2002 History of Any Multi-Drug Resistant Organisms: MRSA Year Discovered:: 02/10/20 MDRO Source:: Buttock Past Surgical History: Appendectomy, Coronary Bypass/CABG, Heart Catheterization, Orthopedic Surgery Additional Past Surgical History / Comment(s): 2002 CABG 3 vessel, cardiac angioplasty, R lung wedge resection, R hip closed reduction/ORIF, EGD, colonoscopies/polypectgomies. Past Anesthesia/Blood Transfusion Reactions: No Reported Reaction Additional Past Anesthesia/Blood Transfusion Reaction / Comm: CLAUSTERPHOBIA. Pt has received blood in past without reaction. Past Psychological History: No Psychological Hx Reported Additional Psychological History / Comment(s): Pt resides at [facility] for rehab. Smoking Status: Former smoker Past Alcohol Use History: None Reported Additional Past Alcohol Use History / Comment(s): started smoking at age 18 (1959), quit 2001 smoked 1 ppd. Past Drug Use History: None Reported - Past Family History Father Family Medical History: Cancer Additional Family Medical History / Comment(s): of pancreatic cancer Mother Family Medical History: Diabetes Mellitus Additional Family Medical History / Comment(s): AT AGE 90 WAS IN PRETTY GOOD HEALTH FROM OLD AGE Brother(s) Family Medical History: Diabetes Mellitus Additional Family Medical History / Comment(s): 2 BROTHERS HAVE DIABETES Medications and Allergies Home Medications Medication Instructions Recorded Confirmed Type Tiotropium 18 Mcg/Puff [Spiriva] 1 cap INHALATION RT-DAILY@0800 07/13/13 02/15/20 History Nitroglycerin Sl Tabs [Nitrostat] 0.4 mg SL Q5M PRN 03/19/16 02/15/20 History Ferrous Sulfate [Iron] 325 mg PO TID@0800,1200,1700 11/09/17 02/15/20 History Isosorbide Mononitrate [Isosorbide 30 mg PO BID@0800,1700 11/09/17 02/15/20 History Mononitrate ER] Ipratropium-Albuterol Nebulize 3 ml INHALATION RT-QID PRN 03/22/18 02/15/20 History [Duoneb 0.5 mg-3 mg/3 ml Soln] Apixaban [Eliquis] 2.5 mg PO BID@0800,1700 09/27/18 02/15/20 History Budesonide-Formot 160-4.5 Mcg 2 puff INHALATION RT-BID@0800,1700 09/25/19 02/15/20 History [Symbicort 160-4.5 Mcg Inhaler] Folic Acid 1 mg PO DAILY@169909/25/19 02/15/20 History Ascorbic Acid [Vitamin C] 250 mg PO DAILY@169902/09/20 02/15/20 History Multivitamins, Thera [Multivitamin 1 tab PO DAILY@0 02/09/20 02/15/20 History (formulary)] cycloSPORINE 0.05% OPHTH SOLN 1 drop BOTH EYES Q12H 02/09/20 02/15/20 History [Restasis] Ibuprofen [Motrin] 400 mg PO Q6HR PRN tab 02/14/20 02/15/20 Rx Thiamine [Vitamin B-1] 100 mg PO DAILY@1200 tab 02/14/20 02/15/20 Rx Acetaminophen Tab [Tylenol] 650 mg PO Q6H PRN 02/15/20 02/15/20 History Ensure Clear 120 ml PO TID@0800,1200,1700 02/15/20 02/15/20 History Linezolid 600 mg PO BID@0800,2100 02/15/20 02/15/20 History Magnesium Hydroxide [Milk of 7,200 mg PO Q48H PRN 02/15/20 02/15/20 History Magnesia Concentrate] Magnesium Oxide [Mag-Ox] 400 mg PO BID@0800,1700 02/15/20 02/15/20 History Na Phos,M-B/Na Phos,Di-Ba [Fleet 133 ml RECTAL DAILY PRN 02/15/20 02/15/20 His tory Adult] Pantoprazole [Protonix] 40 mg PO DAILY@0600 02/15/20 02/15/20 History Potassium Chloride ER [K-Dur 20] 40 meq PO BID@0800,1700 02/15/20 02/15/20 History Simvastatin [Zocor] 20 mg PO HS@209902/15/20 02/15/20 History Spironolactone [Aldactone] 25 mg PO DAILY@0600 02/15/20 02/15/20 History Sulfamethox-Tmp 800-160Mg [Bactrim 1 tab PO BID@0800,2100 02/15/20 02/15/20 History DS 800-160 mg] Tamsulosin HCl [Flomax] 0.4 mg PO BID@0800,1700 02/15/20 02/15/20 History Theophylline 24 Hour [Fabrice-24] 200 mg PO DAILY@0800 02/15/20 02/15/20 History bisacodyL [Bisacodyl] 10 mg RECTAL DAILY PRN 02/15/20 02/15/20 History Allergies Allergy/AdvReac Type Severity Reaction Status Date / Time No Known Allergies Allergy Verified 02/15/20 19:26 Physical Exam Vitals: Vital Signs Temp Pulse Resp BP Pulse Ox 02/18/20 20:54 97 16 02/18/20 20:42 77 16 02/18/20 20:00 97.8 F 98 14 136/70 95 02/18/20 19:30 94 18 127/101 02/18/20 19:00 108 H 20 115/78 93 L 02/18/20 18:30 70 21 127/94 02/18/20 18:00 94 22 135/91 02/18/20 17:30 100 20 146/69 93 L 02/18/20 17:00 75 20 132/65 93 L 02/18/20 16:30 92 15 134/76 02/18/20 16:00 97.4 F L 72 22 125/86 93 L 02/18/20 15:30 93 24 135/80 02/18/20 15:00 67 25 H 123/67 92 L 02/18/20 14:30 75 33 H 135/81 02/18/20 14:00 63 19 126/55 93 L 02/18/20 13:30 55 L 24 147/64 94 L 02/18/20 13:24 56 L 02/18/20 13:13 54 L 02/18/20 13:00 49 L 20 100/64 02/18/20 12:30 61 17 118/51 93 L 02/18/20 12:00 97.9 F 45 L 22 134/56 93 L 02/18/20 11:30 63 21 90/50 93 L 02/18/20 11:00 50 L 25 H 101/84 02/18/20 10:30 61 25 H 129/63 97 02/18/20 10:00 77 20 105/41 96 02/18/20 09:30 72 21 117/52 95 02/18/20 09:00 97.5 F L 59 L 20 124/66 95 02/18/20 08:30 75 24 108/97 02/18/20 08:00 78 20 121/65 96 02/18/20 07:53 97 02/18/20 07:42 95 02/18/20 07:30 86 22 109/60 95 02/18/20 07:00 92 19 107/65 94 L 02/18/20 06:30 93 15 112/65 93 L 02/18/20 06:00 89 19 110/54 92 L 02/18/20 05:30 85 18 93 L 02/18/20 05:00 90 20 117/54 96 02/18/20 04:30 97 11 L 110/61 96 02/18/20 04:00 97.8 F 93 17 117/53 96 02/18/20 03:30 98 20 132/58 95 02/18/20 03:00 98 15 128/75 96 02/18/20 02:30 94 14 130/88 02/18/20 02:00 105 H 22 130/63 98 02/18/20 01:30 88 23 114/68 97 02/18/20 01:00 112 H 23 118/73 95 02/18/20 00:37 88 17 02/18/20 00:30 98 28 H 115/71 02/18/20 00:00 98.6 F 75 23 113/64 98 02/17/20 23:30 93 15 111/58 97 02/17/20 23:00 98 20 93/53 96 02/17/20 22:30 93 19 103/85 99 02/17/20 22:00 112 H 20 90/65 97 Intake and Output 02/18/20 02/18/20 02/18/20 06:59 14:59 22:59 Intake Total 880 300 150 Output Total 525 190 310 Balance 355 110 -160 Intake: IV 400 300 150 0.9 400 300 150 Oral 480 Output: Urine 525 190 310 Other: Voiding Method Indwelling Catheter Indwelling Catheter Indwelling Catheter Weight 90.5 kg GENERAL DESCRIPTION: Elderly male lying in bed, no distress. No tachypnea or accessory muscle of respiration use. HEENT: Shows Pallor , no scleral icterus. Oral mucous membrane is dry. NECK: Trachea central, no thyromegaly. LUNGS: Unlabored breathing. Decreased breath sound at the base. No wheeze or crackle. HEART: S1, S2, regular rate and rhythm. ABDOMEN: Soft, no tenderness , guarding or rigidity EXTREMITIES: No edema of feet. SKIN: No rash, no masses palpable. Patient did have a small stage I pressure ulcer on the right gluteal area with no surrounding swelling redness induration or drainage NEUROLOGICAL: The patient is awake, alert, oriented x3, mood and affect normal. Results CBC & Chem 7: 02/18/20 03:38 02/18/20 03:38 Labs: Abnormal Lab Results - Last 24 Hours (Table) 02/18/20 02/18/20 02/18/20 Range/Units 03:38 03:38 03:38 RBC 3.39 L (4.30-5.90) m/uL Hgb 10.9 L (13.0-17.5) gm/dL Hct 33.4 L (39.0-53.0) % Plt Count 143 L (150-450) k/uL Lymphocytes # 0.6 L (1.0-4.8) k/uL ESR 22 H (0-15) mm/hr Sodium 134 L (137-145) mmol/L Chloride 108 H (98-107) mmol/L Glucose 127 H (74-99) mg/dL Calcium 7.7 L (8.4-10.2) mg/dL Alkaline Phosphatase 32 L (38-126) U/L C-Reactive Protein 68.4 H (<10.0) mg/L Total Protein 5.3 L (6.3-8.2) g/dL Albumin 2.2 L (3.5-5.0) g/dL Procalcitonin 0.18 H (0.02-0.09) ng/mL Assessment and Plan Assessment: -patient here with small wound on the right gluteal area with no evidence of any cellulitis culture done on 09 February did grew MRSA possible colonization of that area as is no evidence of any secondary cellulitis, patient currently with significant bradycardia arrhythmia and need for permanent pacemaker in this patient currently with no fever or any suspicious for bacteremia he did have blood cultures obtained this morning which are negative so far (1) MRSA (methicillin resistant staph aureus) culture positive Current Visit: Yes Status: Acute Code(s): Z22.322 - CARRIER OR SUSPECTED CARRIER OF METHICILLIN RESIS STAPH SNOMED Code(s): 103768484 (2) Pressure ulcer of sacral region, stage 2 Current Visit: No Status: Acute Code(s): L89.152 - PRESSURE ULCER OF SACRAL REGION, STAGE 2 SNOMED Code(s): 823394586 Plan: 1-if the blood cultures obtained this morning which are negative at 72-hour patient able to go for permanent pacemaker placement 2 calmoseptine lotion-to the right gluteal wound area 3-patient should received vancomycin perioperatively and postoperatively to decrease risk of infection We will follow on clinical condition and cultures to further adjust medication if needed Thank you for this consultation we will follow the patient along with you
--- NOTE | 2020-02-18 23:22 | P.PN ---
Subjective Progress Note Date: 02/18/20 Principal diagnosis: Bradycardia This patient was cared for during of federal and state declared state of emergency secondary to COVID 19 Mr. Mahmood is a 79-year-old male with a past medical history of coronary artery disease, atrial fibrillation, congestive heart failure, COPD, hypertension, hyperlipidemia, CKD stage III admitted to the ICU for bradycardia. At the time of admission patient's heart rate was as low as 20. Patient was recently discharged from the hospital, at that time his heart rate was in 30s to 40s but he refused to have a pacemaker placed. He was discharged to the detention and was sent here for bradycardia. Patient is seen and examined in the ICU today. As per nursing staff report no acute events. He is on a temporary maker. He is on a dopamine drip. He is resting comfortably in bed appears to be in no acute distress. He denies having any fevers chills or rigors. No chest pain or palpitations. No abdominal pain nausea vomiting or diarrhea. On reviewing the patient's vitals blood pressure 125/56, heart rate he is paced to 40, saturating at 98% on room air. Reviewing the labs white count of 10 point hemoglobin 12 sodium 142, potassium 4.8, chloride 113, BUN 22, creatinine one- point. Albumin 2.7. On 02/18/2020 patient is seen and examined in the ICU. Patient has no active complaints. He denies having any fevers chills or rigors. No chest pain or palpitations. He denies having any cough or difficulty in breathing. On reviewing the vitals patient's blood pressure 140 x 85 saturating at 94% on room air heart rate in 40s to 50s which is paced. He has a temporary venous pacemaker. He is off of dopamine drip since last night. Patient has labs done today showing white count of 9 point, platelets 143. Active Medications Albuterol/Ipratropium (Ipratropium-Albuterol 3 Ml Neb) 3 ml INHALATION RT-QID PRN PRN Reason: Shortness Of Breath Last Admin: 02/17/20 19:30 Dose: 3 ml Documented by: Apixaban (Apixaban 2.5 Mg Tablet) 2.5 mg PO BID@0800,1700 [facility] Last Admin: 02/18/20 18:17 Dose: 2.5 mg Documented by: Ascorbic Acid (Ascorbic Acid 500 Mg Tab) 500 mg PO DAILY@1700 [facility] Last Admin: 02/18/20 18:17 Dose: 500 mg Documented by: Aspirin (Aspirin 325 Mg Tab) 325 mg PO DAILY [facility] Last Admin: 02/18/20 10:16 Dose: 325 mg Documented by: Atorvastatin Calcium (Atorvastatin 10 Mg Tab) 10 mg PO HS@2100 [facility] Last Admin: 02/18/20 21:01 Dose: 10 mg Documented by: Budesonide/Formoterol Fumarate (Symbicort 160-4.5 Mcg Inhaler) 2 puff INHALATION RT-BID@0800,1700 [facility] Last Admin: 02/18/20 20:42 Dose: 2 puff Documented by: Dopamine HCl/Dextrose 800 mg/ (IV Solution) 250 mls @ 3.249 mls/hr IV .Q24H [facility]; Protocol Last Admin: 02/18/20 05:16 Dose: Not Given Documented by: Sodium Chloride (Saline 0.9%) 1,000 mls @ 30 mls/hr IV .Q24H [facility] Last Admin: 02/18/20 21:01 Dose: 30 mls/hr Documented by: Ipratropium [place] (Ipratropium 0.5 Mg/2.5 Ml Nebu) 0.5 mg INHALATION RT-QID [facility] Last Admin: 02/18/20 20:42 Dose: 0.5 mg Documented by: Isosorbide Mononitrate (Isosorbide Mononitrate Er 30 Mg Tab.Er.24h) 30 mg PO BID@0800,1700 [facility] Last Admin: 02/18/20 16:43 Dose: Not Given Documented by: Linezolid (Linezolid 600 Mg Tab) 600 mg PO BID@0800,2100 [facility] Last Admin: 02/18/20 21:01 Dose: 600 mg Documented by: Magnesium Hydroxide (Magnesium Hydroxide 2,400 Mg/10 Ml Cup) 7,200 mg PO Q48H PRN PRN Reason: Constipation Magnesium Oxide (Magnesium Oxide 400 Mg Tab) 400 mg PO BID@0800,1700 [facility] Last Admin: 02/18/20 18:17 Dose: 400 mg Documented by: Miscellaneous Information (Potassium Replacement Protocol 1 Each Misc) 1 each MISCELLANE DAILY PRN; Protocol PRN Reason: Per Protocol Nitroglycerin (Nitroglycerin Sl Tabs 0.4 Mg Tab) 0.4 mg SUBLINGUAL Q5M PRN PRN Reason: Chest Pain Pantoprazole Sodium (Pantoprazole 40 Mg Tablet) 40 mg PO DAILY@0600 [facility] Last Admin: 02/18/20 06:21 Dose: 40 mg Documented by: Sodium Bicarbonate (Sodium Bicarbonate Tab 650 Mg Tab) 650 mg PO BID [facility] Last Admin: 02/18/20 21:01 Dose: 650 mg Documented by: Sodium Biphosphate/Sodium Phosphate (Na Phos,M-B/Na Phos,Di-Ba 133 Ml Enema) 133 ml RECTAL DAILY PRN PRN Reason: Constipation Tamsulosin HCl (Tamsulosin 0.4 Mg Cap.Er.24h) 0.4 mg PO BID@0800,1700 [facility] Last Admin: 02/18/20 16:43 Dose: Not Given Documented by: Theophylline (Theophylline 24 Hour 200 Mg Cap.Er.24h) 200 mg PO DAILY@0800 [facility] Last Admin: 02/18/20 10:16 Dose: Not Given Documented by: Thiamine HCl (Thiamine 100 Mg Tab) 100 mg PO DAILY@1200 [facility] Last Admin: 02/18/20 12:25 Dose: 100 mg Documented by: Objective - Vital Signs Vital signs: Vital Signs Temp 97.9 F 02/18/20 12:00 Pulse 63 02/18/20 14:00 Resp 19 02/18/20 14:00 BP 126/55 02/18/20 14:00 Pulse Ox 93 L 02/18/20 14:00 Intake & Output 02/17/20 02/18/20 02/18/20 18:59 06:59 18:59 Intake Total 641.615 9748 300 Output Total 570 875 190 Balance 192.036 155 110 Weight 91.4 kg 90.5 kg Intake: IV 650 550 300 0.9 650 550 300 Intake, IV Titration 112.036 Amount DOPamine DRIP 800 mg In 112.036 Dextrose/Water 1 250ml. bag @ 2 MCG/KG/MIN 3.249 mls/hr IV .Q24H [facility] Rx#: [id number] Oral 480 Output: Urine 570 875 190 Other: Voiding Method Indwelling Catheter Indwelling Catheter Indwelling Catheter - Exam GENERAL: The patient is alert and oriented x3 . Chronically ill appearing. HEENT: No pallor or octerus CARDIOVASCULAR: S1 and S2 present. . PULMONARY: Chest is clear to auscultation, no wheezing or crackles. ABDOMEN: Soft, nontender, nondistended, normoactive bowel sounds. No palpable organomegaly. MUSCULOSKELETAL: No joint swelling or deformity. EXTREMITIES: Mild pedal edema. NEUROLOGICAL: Gross neurological examination did not reveal any focal deficits. SKIN: Stage 2 sacral decubitus ulcer - Labs CBC & Chem 7: 02/18/20 03:38 02/18/20 03:38 Labs: Abnormal Lab Results - Last 24 Hours (Table) 02/18/20 02/18/20 02/18/20 Range/Units 03:38 03:38 03:38 RBC 3.39 L (4.30-5.90) m/uL Hgb 10.9 L (13.0-17.5) gm/dL Hct 33.4 L (39.0-53.0) % Plt Count 143 L (150-450) k/uL Lymphocytes # 0.6 L (1.0-4.8) k/uL ESR 22 H (0-15) mm/hr Sodium 134 L (137-145) mmol/L Chloride 108 H (98-107) mmol/L Glucose 127 H (74-99) mg/dL Calcium 7.7 L (8.4-10.2) mg/dL Alkaline Phosphatase 32 L (38-126) U/L C-Reactive Protein 68.4 H (<10.0) mg/L Total Protein 5.3 L (6.3-8.2) g/dL Albumin 2.2 L (3.5-5.0) g/dL Procalcitonin 0.18 H (0.02-0.09) ng/mL Assessment and Plan Assessment: ASSESSMENT Severe bradycardia had temporary pacemaker placement Multiple sacral decubitus with severe pain with surrounding cellulitis, culture is growing MRSA. Hyperkalemia Acute on chronic kidney injury History of nonsustained ventricular tachycardia History of Rectal pain and fecal impaction chronic Gait dysfunction Atrial fibrillation with bradycardia Generalized weaknessin Anemia, normocytic possibly multifactorial history of CAD CHF with chronic diastolic dysfunction History of COPD, asthma Hypertension Hyperlipidemia history of myocardial infarction History of right lung cancer with wedge resection History of severe pulmonary hypertension Chronic kidney disease stage III history of coronary artery disease, CABG Claustrophobia Remote history of nicotine dependence Plan: Patient to be monitored in the ICU setting. He has a temporary pacemaker, cardiology on board and probably permanent pacemaker placement. Patient has h istory of MRSA infection of the sacral decubitus ulcers. He is continued on Zyvox and ID Dr. Olivo following. Due to acute kidney injury patient is being followed up by nephrology. Continue with the rest of his current medication regimen. Continue with GI/DVT prophylaxis. Further recommendations to follow depending on the progress of the patient.
[2020-02-19 04:23] LABS: Basophils % (A) 0 %; Eosinophils # (A) 0.2 k/uL (0-0.7); Eosinophils % (A) 2 %; HCT 33.7 % (39.0-53.0); Lymphocytes # (A) 0.8 k/uL (1.0-4.8); Lymphocytes % (A) 9 %; MCH 32.1 pg (25.0-35.0); MCHC 32.6 g/dL (31.0-37.0); MCV 98.5 fL (80.0-100.0); Macrocytosis Slight; Mean Platelet Volume 8.7; Monocytes # (A) 0.6 k/uL (0-1.0); Monocytes % (A) 7 %; Neutrophils # (A) 6.8 k/uL (1.3-7.7); Neutrophils % (A) 79 %; Platelet Count 132 k/uL (150-450); RBC 3.42 m/uL (4.30-5.90); RDW 15.4 % (11.5-15.5); WBC 8.6 k/uL (3.8-10.6)
[2020-02-19 04:31] LABS: Calcium 7.6 mg/dL (8.4-10.2); Potassium 4.1 mmol/L (3.5-5.1)
[2020-02-19] MEDS: DOPamine DRIP 800 MG in DEXTROSE/WATER 1 250ML.BAG IV SCH (05:02)
[2020-02-19] MEDS: PANTOPRAZOLE 40 MG TABLET PO SCH (05:51)
[2020-02-19] MEDS: IPRATROPIUM 0.5 MG/2.5 ML NEBU INHALATION SCH ×5 (07:33→20:16)
[2020-02-19] MEDS: SYMBICORT 160-4.5 MCG INHALER INHALATION SCH ×2 (07:33→19:59)
[2020-02-19] MEDS: ISOSORBIDE MONONITRATE ER 30 MG TAB.ER.24H PO SCH (09:25)
[2020-02-19] MEDS: TAMSULOSIN 0.4 MG CAP.ER.24H PO SCH ×2 (09:25→17:36)
[2020-02-19] MEDS: LINEZOLID 600 MG TAB PO SCH ×2 (09:25→20:40)
[2020-02-19] MEDS: MAGNESIUM OXIDE 400 MG TAB PO SCH ×2 (09:25→17:36)
[2020-02-19] MEDS: THEOPHYLLINE 24 HOUR 200 MG CAP.ER.24H PO SCH (09:25)
[2020-02-19] MEDS: ASPIRIN 325 MG TAB PO SCH (09:26)
[2020-02-19] MEDS: APIXABAN 2.5 MG TABLET PO SCH ×2 (09:29→17:36)
[2020-02-19] MEDS: SODIUM BICARBONATE TAB 650 MG TAB PO SCH (09:31)
[2020-02-19] MEDS: THIAMINE 100 MG TAB PO SCH (11:56)
--- NOTE | 2020-02-19 12:32 | PN ---
PROGRESS NOTE This gentleman has severe comorbid conditions including chronic atrial fibrillation came in with hyperkalemia and went on to have bradycardia requiring a temporary pacemaker. It is almost 18-20 hours that he has not used the pacemaker at all. He is in atrial fibrillation, rate is in the 80s, hemodynamically stable. I am recommending that we will probably discontinue the pacemaker this afternoon or early tomorrow and he may not require a pacemaker. It is important to keep his potassium in the normal range. The patient has CAD, prior bypass surgery, chronic atrial fibrillation and also he has some MRSA infections in the past and also has a sacral wound and given these multiple issues, I think it is best to avoid any pacemaker yet, keep his potassium level in the normal range so that we do not have any bradycardia issues. I discussed my thoughts in detail with the patient. We will probably take the pacemaker out if he does not use it and hold off on any permanent pacemaker placement for this patient. Physical examination revealed blood pressure of 130/70, pulse in the 80-85, irregular. JVD 1 cm, no carotid bruit, S1, S2 heard normally. Lungs reveal diminished air entry. Abdomen and lower extremity exam unchanged. Continue to monitor and probable discontinue pacemaker this afternoon or tomorrow. No permanent pacemaker for this patient. Keep his potassium in the normal range. MMODL / IJN: [id number] /
--- NOTE | 2020-02-19 15:32 | PN ---
PROGRESS NOTE Patient is seen for followup for acute kidney injury. Renal function has improved, creatinine staying at about 1.1 mg/dL. The patient was initially admitted for bradycardia to the ICU. He has a transvenous pacer. His heart rate is currently staying at 104 to 85 beats per minute. PHYSICAL EXAMINATION: On examination today, blood pressure was 122/71, heart rate of 85 per minute, patient is afebrile. Examination of the heart S1, S2. Examination of the lungs, decreased breath sounds at bases. Abdomen is soft, nontender. Examination of the lower extremities shows 1+ edema. LABS: Show sodium 135, potassium 4.1, chloride 106, CO2 is 26, BUN 17, creatinine 1.1. ASSESSMENT: 1. Acute kidney injury, currently improving. 2. Bradycardia status post transfer the transvenous pacemaker placement, scheduled for permanent pacemaker placement sometime today. 3. Hyperkalemia secondary to acute kidney injury. Spironolactone acidosis currently improved. 4. Atrial fibrillation. 5. Chronic diastolic congestive heart failure. PLAN: Continue to diurese patient gently. Continue off IV fluids. DC sodium bicarb. MMODL / IJN: [id number] /
[2020-02-19] MEDS ORDERED: ATROPINE SULFATE 0.1 MG/ML 10ML SYRINGE ONE (16:55)
[2020-02-19] MEDS: NITROGLYCERIN OINT 1 INCH/GM PACKET TOPICAL SCH (17:37)
[2020-02-19] MEDS: ASCORBIC ACID 500 MG TAB PO SCH (17:37)
[2020-02-19] MEDS: IPRATROPIUM-ALBUTEROL 3 ML NEB INHALATION PRN (19:59)
[2020-02-19] MEDS: ATORVASTATIN 10 MG TAB PO SCH (20:40)
[2020-02-19] MEDS: SODIUM CHLORIDE 0.9% 1,000 ML IV SCH (20:40)
--- NOTE | 2020-02-19 22:18 | P.PN ---
Subjective Progress Note Date: 02/19/20 Principal diagnosis: Bradycardia This patient was cared for during of federal and state declared state of emergency secondary to COVID 19 Mr. Mahmood is a 79-year-old male with a past medical history of coronary artery disease, atrial fibrillation, congestive heart failure, COPD, hypertension, hyperlipidemia, CKD stage III admitted to the ICU for bradycardia. At the time of admission patient's heart rate was as low as 20. Patient was recently discharged from the hospital, at that time his heart rate was in 30s to 40s but he refused to have a pacemaker placed. [facility] and was sent here for bradycardia. Patient is seen and examined in the ICU today. As per nursing staff report no acute events. He is on a temporary maker. He is on a dopamine drip. He is resting comfortably in bed appears to be in no acute distress. He denies having any fevers chills or rigors. No chest pain or palpitations. No abdominal pain nausea vomiting or diarrhea. On reviewing the patient's vitals blood pressure 125/56, heart rate he is paced to 40, saturating at 98% on room air. Reviewing the labs white count of 10 point hemoglobin 12 sodium 142, potassium 4.8, chloride 113, BUN 22, creatinine one- point. Albumin 2.7. On 02/18/2020 patient is seen and examined in the ICU. Patient has no active complaints. He denies having any fevers chills or rigors. No chest pain or palpitations. He denies having any cough or difficulty in breathing. On reviewing the vitals patient's blood pressure 140 x 85 saturating at 94% on room air heart rate in 40s to 50s which is paced. He has a temporary venous pacemaker. He is off of dopamine drip since last night. Patient has labs done today showing white count of 9 point, platelets 143. On 02/19/2020 patient was seen and examined in the ICU. No acute events reported by nursing staff overnight. Patient denies having any fevers chills or rigors. No chest pain or palpitations. On reviewing the vitals patient's temperature is 97.9, heart rate 90s to 110s and in atrial fibrillation. Respiratory rate 17, blood pressure 127 x 68 saturating at 98% on room air. On reviewing the labs wh ite count of 8.6, hemoglobin 11, platelets 132. Sodium 135, potassium 4.1, chloride 106, bicarb 26. BUN 79 creatinine of 1.11. Active Medications Albuterol/Ipratropium (Ipratropium-Albuterol 3 Ml Neb) 3 ml INHALATION RT-QID PRN PRN Reason: Shortness Of Breath Last Admin: 02/19/20 19:59 Dose: 3 ml Documented by: Apixaban (Apixaban 2.5 Mg Tablet) 2.5 mg PO BID@0800,1700 [facility] Last Admin: 02/19/20 17:36 Dose: 2.5 mg Documented by: Ascorbic Acid (Ascorbic Acid 500 Mg Tab) 500 mg PO DAILY@1700 [facility] Last Admin: 02/19/20 17:37 Dose: 500 mg Documented by: Aspirin (Aspirin 325 Mg Tab) 325 mg PO DAILY [facility] Last Admin: 02/19/20 09:26 Dose: 325 mg Documented by: Atorvastatin Calcium (Atorvastatin 10 Mg Tab) 10 mg PO HS@2100 [facility] Last Admin: 02/19/20 20:40 Dose: 10 mg Documented by: Budesonide/Formoterol Fumarate (Symbicort 160-4.5 Mcg Inhaler) 2 puff INHALATION RT-BID@0800,1700 [facility] Last Admin: 02/19/20 19:59 Dose: 2 puff Documented by: Dopamine HCl/Dextrose 800 mg/ (IV Solution) 250 mls @ 3.249 mls/hr IV .Q24H [facility]; Protocol Last Admin: 02/19/20 05:02 Dose: Not Given Documented by: Sodium Chloride (Saline 0.9%) 1,000 mls @ 30 mls/hr IV .Q24H [facility] Last Admin: 02/19/20 20:40 Dose: 30 mls/hr Documented by: Ipratropium [place] (Ipratropium 0.5 Mg/2.5 Ml Nebu) 0.5 mg INHALATION RT-QID [facility] Last Admin: 02/19/20 20:16 Dose: Not Given Documented by: Linezolid (Linezolid 600 Mg Tab) 600 mg PO BID@0800,2100 [facility] Last Admin: 02/19/20 20:40 Dose: 600 mg Documented by: Magnesium Hydroxide (Magnesium Hydroxide 2,400 Mg/10 Ml Cup) 7,200 mg PO Q48H PRN PRN Reason: Constipation Magnesium Oxide (Magnesium Oxide 400 Mg Tab) 400 mg PO BID@0800,1700 [facility] Last Admin: 02/19/20 17:36 Dose: 400 mg Documented by: Miscellaneous Information (Potassium Replacement Protocol 1 Each Misc) 1 each MISCELLANE DAILY PRN; Protocol PRN Reason: Per Protocol Nitroglycerin (Nitroglycerin Sl Tabs 0.4 Mg Tab) 0.4 mg SUBLINGUAL Q5M PRN PRN Reason: Chest Pain Nitroglycerin (Nitroglycerin Oint 1 Inch/Gm Packet) 1 inch TOPICAL Q6HR [facility] Last Admin: 02/19/20 17:37 Dose: 1 inch Documented by: Pantoprazole Sodium (Pantoprazole 40 Mg Tablet) 40 mg PO DAILY@0600 [facility] Last Admin: 02/19/20 05:51 Dose: 40 mg Documented by: Sodium Biphosphate/Sodium Phosphate (Na Phos,M-B/Na Phos,Di-Ba 133 Ml Enema) 133 ml RECTAL DAILY PRN PRN Reason: Constipation Tamsulosin HCl (Tamsulosin 0.4 Mg Cap.Er.24h) 0.4 mg PO BID@0800,1700 [facility] Last Admin: 02/19/20 17:36 Dose: 0.4 mg Documented by: Theophylline (Theophylline 24 Hour 200 Mg Cap.Er.24h) 200 mg PO DAILY@0800 [facility] Last Admin: 02/19/20 09:25 Dose: 200 mg Documented by: Thiamine HCl (Thiamine 100 Mg Tab) 100 mg PO DAILY@1200 [facility] Last Admin: 02/19/20 11:56 Dose: 100 mg Documented by: Objective - Vital Signs Vital signs: Vital Signs Temp 97.7 F 02/19/20 08:00 Pulse 85 02/19/20 11:15 Resp 16 02/19/20 10:00 BP 122/71 02/19/20 10:00 Pulse Ox 95 02/19/20 10:00 Intake & Output 02/18/20 02/19/20 02/19/20 18:59 06:59 18:59 Intake Total 420 360 120 Output Total 470 390 140 Balance -50 -30 -20 Weight 93.1 kg Intake: IV 420 360 120 0.9 420 360 120 Output: Urine 470 390 140 Other: Voiding Method Indwelling Catheter Indwelling Catheter - Exam Physical Exam GENERAL: The patient is alert and oriented x3 . Chronically ill appearing. HEENT: No pallor or octerus CARDIOVASCULAR: S1 and S2 present. . PULMONARY: Chest is clear to auscultation, no wheezing or crackles. ABDOMEN: Soft, nontender, nondistended, normoactive bowel sounds. No palpable organomegaly. MUSCULOSKELETAL: No joint swelling or deformity. EXTREMITIES: Mild pedal edema. NEUROLOGICAL: Gross neurological examination did not reveal any focal deficits. SKIN: Stage 2 sacral decubitus ulcer - Labs CBC & Chem 7: 02/19/20 04:00 02/19/20 04:00 Labs: Abnormal Lab Results - Last 24 Hours (Table) 02/19/20 02/19/20 Range/Units 04:00 04:00 RBC 3.42 L (4.30-5.90) m/uL Hgb 11.0 L (13.0-17.5) gm/dL Hct 33.7 L (39.0-53.0) % Plt Count 132 L (150-450) k/uL Lymphocytes # 0.8 L (1.0-4.8) k/uL Sodium 135 L (137-145) mmol/L Glucose 100 H (74-99) mg/dL Calcium 7.6 L (8.4-10.2) mg/dL Microbiology - Last 24 Hours (Table) 02/18/20 03:38 Blood Culture - Preliminary Blood No Growth after 24 hours Assessment and Plan Assessment: ASSESSMENT Severe bradycardia has temporary pacemaker placement Multiple sacral decubitus with severe pain with surrounding cellulitis, culture is growing MRSA. Hyperkalemia Acute on chronic kidney injury History of nonsustained ventricular tachycardia History of Rectal pain and fecal impaction chronic Gait dysfunction Atrial fibrillation with bradycardia Generalized weaknessin Anemia, normocytic possibly multifactorial history of CAD CHF with chronic diastolic dysfunction History of COPD, asthma Hypertension Hyperlipidemia history of myocardial infarction History of right lung cancer with wedge resection History of severe pulmonary hypertension Chronic kidney disease stage III history of coronary artery disease, CABG Claustrophobia Remote history of nicotine dependence Plan: Patient to be monitored in the ICU setting. He has a temporary pacemaker, cardiology on board and deciding on permanent pace maker placement. Patient has history of MRSA infection of the sacral decubitus ulcers. He is continued on Zyvox and ID Dr. Olivo following. Due to acute kidney injury patient is being followed up by nephrology, his craetinine is trending down significantly. Cont inue with the rest of his current medication regimen. Continue with GI/DVT prophylaxis. Further recommendations to follow depending on the progress of the patient.
[2020-02-20] MEDS: NITROGLYCERIN OINT 1 INCH/GM PACKET TOPICAL SCH ×2 (01:55→05:57)
[2020-02-20] MEDS: DOPamine DRIP 800 MG in DEXTROSE/WATER 1 250ML.BAG IV SCH (04:27)
[2020-02-20 04:53] LABS: Basophils % (A) 0 %; Eosinophils # (A) 0.1 k/uL (0-0.7); Eosinophils % (A) 2 %; HCT 34.7 % (39.0-53.0); HGB 10.9 gm/dL (13.0-17.5); Hypochromasia Slight; Lymphocytes # (A) 0.7 k/uL (1.0-4.8); Lymphocytes % (A) 8 %; MCH 31.2 pg (25.0-35.0); MCHC 31.5 g/dL (31.0-37.0); MCV 99.1 fL (80.0-100.0); Macrocytosis Slight; Mean Platelet Volume 8.9; Monocytes # (A) 0.4 k/uL (0-1.0); Monocytes % (A) 5 %; Neutrophils # (A) 6.9 k/uL (1.3-7.7); Neutrophils % (A) 83 %; Platelet Count 134 k/uL (150-450); RDW 15.6 % (11.5-15.5); WBC 8.4 k/uL (3.8-10.6)
[2020-02-20 05:03] LABS: Calcium 7.8 mg/dL (8.4-10.2); Potassium 4.4 mmol/L (3.5-5.1)
[2020-02-20] MEDS: PANTOPRAZOLE 40 MG TABLET PO SCH (05:54)
[2020-02-20] MEDS: SYMBICORT 160-4.5 MCG INHALER INHALATION SCH ×2 (07:21→19:03)
[2020-02-20] MEDS: IPRATROPIUM 0.5 MG/2.5 ML NEBU INHALATION SCH ×4 (07:21→19:03)
--- NOTE | 2020-02-20 09:22 | PN ---
PROGRESS NOTE Mr. Mahmood is in atrial fibrillation, rate is good. No further bradycardia. Pacemaker was discontinued yesterday evening by me, sheath has been out. The right groin is clean and dry, blood pressure is 128/70, pulse rate is 80 per minute, regular. I will discontinue aspirin, continue Eliquis at 2.5 mg b.i.d., switch him from nitroglycerin paste to Imdur since he is swallowing very well. He can be moved to the medical floor and increase activity. S1-S2 heard normally, irregular rhythm noted, short systolic murmur noted. Lungs reveal improved air entry. Abdomen and lower extremity exam are unchanged. Prognosis remains guarded. MMODL / IJN: [id number] /
[2020-02-20] MEDS: THEOPHYLLINE 24 HOUR 200 MG CAP.ER.24H PO SCH (09:48)
[2020-02-20] MEDS: MAGNESIUM OXIDE 400 MG TAB PO SCH ×2 (09:48→18:59)
[2020-02-20] MEDS: LINEZOLID 600 MG TAB PO SCH ×2 (09:48→23:34)
[2020-02-20] MEDS: TAMSULOSIN 0.4 MG CAP.ER.24H PO SCH ×2 (09:48→18:58)
[2020-02-20] MEDS: APIXABAN 2.5 MG TABLET PO SCH ×2 (09:48→18:58)
[2020-02-20] MEDS: THIAMINE 100 MG TAB PO SCH (09:49)
--- NOTE | 2020-02-20 13:07 | PN ---
PROGRESS NOTE Patient is seen for followup for acute kidney injury. Renal function fairly stable. Serum creatinine has improved to 1.05. There are no plans for pacemaker placement. PHYSICAL EXAMINATION: On examination today, blood pressure was 123/58, heart rate 92 per minute, patient is afebrile. Examination of the heart S1, S2. Examination of the lungs, bilateral breath sounds are heard. Abdomen is soft, nontender. Examination of lower extremities shows edema trace bilaterally. 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 Chronic skin changes noted on lower extremities. LABS: Show sodium 134, potassium 4.4, chloride 107, CO2 is 24, BUN 17, creatinine 1.05, hemoglobin 10.9 g/dL. ASSESSMENT: 1. Acute kidney injury, currently improved, nonoliguric. 2. Bradycardia, now improved. No need for pacemaker placement per Cardiology. 3. Hyperkalemia associated with acute kidney injury, acidosis and from spironolactone, currently improved. 4. Chronic diastolic CHF. PLAN: Encourage increased oral intake. Monitor electrolytes. MMODL / IJN: [id number] /
--- NOTE | 2020-02-20 13:26 | P.PN ---
Subjective History of present illness This is a pleasant 79 years old male with multiple medical problems as below, who was recently discharged from the hospital 1-2 days ago. That time he had bradycardia with heart rate in the 30s or 40s but he refused to do pacemaker after he went to senior living he change his mind and decided to come to the hospital to place pacemaker . On admission his heart rate was low as 20, he was admitted to the ICU for further monitoring with some symptoms of nausea and vomiting, at certain point it became unresponsive and was going to code him however he woke up and now is going for temporal pacemaker . Patient also placed on normal saline at 50 mL per hour and dopamine drip at 2 mics. Cardiology team on the case. Patient was on liquids which is ordered, discussed with staff to check with cartilage team prior to giving it to the patient Labs and leukocytosis of 11.4 K. INR is 1.3. Sodium 136, potassium 5.8, creati nine 1.5. Troponin is 0.063. TSH is normal at 2.2 EKG showing quiet QRS rhythm with ventricular escape complexes at 46. QTC is 572 Chest x-ray: No acute process. Bilateral small pleural effusions and increased compared to recent exam. Minimal heart failure is possible Subjective: (Patient has been followed by my colleague for the last 3 days) 02/20/2020 Patient is found no need for pacemaker per cardiology team, I discussed the case with Dr. Dunaway and recommended to stop potassium, lisinopril and Aldactone. Patient is currently lying in bed comfortable, no complaint and he thinks he can go back to his rehab whenever he is ready. He denies chest pain or dyspnea, no abdominal pain, no nausea vomiting. No diarrhea. No fever Heart rate is currently in the 90s. I discussed the case with his miss Jacobson and updated here about his problems and management plan and she agrees that he goes back to rehab when he is ready, possibly tomorrow Objective - Vital Signs Vital signs: Vital Signs Temp 97.7 F 02/20/20 04:00 Pulse 97 02/20/20 11:10 Resp 19 02/20/20 07:00 BP 123/58 02/20/20 07:00 Pulse Ox 96 02/20/20 07:00 Intake & Output 02/19/20 02/20/20 02/20/20 18:59 06:59 18:59 Intake Total 360 360 30 Output Total 350 330 20 Balance 10 30 10 Weight 97.1 kg Intake: IV 360 360 30 0.9 360 360 30 Output: Urine 350 330 20 Other: Voiding Method Indwelling Catheter Indwelling Catheter - Exam -GENERAL: The patient is alert and oriented x3, not in any acute distress. Generally weak HEENT: Pupils are round and equally reacting to light. EOMI. No scleral icterus. No conjunctival pallor. Normocephalic, atraumatic. No pharyngeal erythema. No thyromegaly. CARDIOVASCULAR: S1 and S2 present. No murmurs, rubs, or gallops. PULMONARY: Chest is clear to auscultation, no wheezing or crackles. ABDOMEN: Soft, nontender, nondistended, normoactive bowel sounds. No palpable organomegaly. MUSCULOSKELETAL: No joint swelling or deformity. EXTREMITIES: No cyanosis, clubbing, or pedal edema. NEUROLOGICAL: Gross neurological examination did not reveal any focal deficits. SKIN: No rashes. no petechiae. - Labs CBC & Chem 7: 02/20/20 03:41 02/20/20 03:41 Labs: Abnormal Lab Results - Last 24 Hours (Table) 02/20/20 02/20/20 Range/Units 03:41 03:41 RBC 3.50 L (4.30-5.90) m/uL Hgb 10.9 L (13.0-17.5) gm/dL Hct 34.7 L (39.0-53.0) % RDW 15.6 H (11.5-15.5) % Plt Count 134 L (150-450) k/uL Lymphocytes # 0.7 L (1.0-4.8) k/uL Sodium 134 L (137-145) mmol/L Glucose 104 H (74-99) mg/dL Calcium 7.8 L (8.4-10.2) mg/dL Microbiology - Last 24 Hours (Table) 02/18/20 03:38 Blood Culture - Preliminary Blood No Growth after 48 hours Assessment and Plan Assessment: severe bradycardia (related to Chronic Atrial fibrillation with) secondary to hyperkalemia, no need for pacemaker placement. 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 Hyperkalemia Acute on chronic kidney injury History of nonsustained ventricular tachycardia History of Rectal pain and fecal impaction chronic Gait dysfunction Atrial fibrillation with bradycardia Generalized weaknessin Anemia, normocytic possibly multifactorial history of CAD CHF with chronic diastolic dysfunction History of COPD, asthma Hypertension Hyperlipidemia history of myocardial infarction History of right lung cancer with wedge resection History of severe pulmonary hypertension Chronic kidney disease stage III history of coronary artery disease, CABG Claustrophobia Remote history of nicotine dependence Acute renal failure Plan: this is a pleasant 79 years old male who presents with severe bradycardia. Patient can removed out of the ICU, cardiology following the case and the recommended no pacemaker, they recommended to discontinue lisinopril, spironolactone and potassium. Continue monitoring for 24 hours and if his stable and he can be transferred back to his rehab. Continue with Zyvox. Nephrology and infectious disease team on the case as well Monitor potassium level Labs and medication were reviewed.. Continue same treatment. Continue with symptomatic treatment. Resume home medication. Monitor lytes and vitals. DVT and GI prophylaxis. Further recommendations depends on the clinical course of the patient DVT prophylaxis: On Eliquis GI Prophylaxis: Ppi Prognosis is guarded possible discharge in 24-48 hours
[2020-02-20 13:33] VITALS: BMI 29.0
[2020-02-20] MEDS: ISOSORBIDE MONONITRATE ER 30 MG TAB.ER.24H PO SCH (14:46)
[2020-02-20] MEDS: ASCORBIC ACID 500 MG TAB PO SCH (18:59)
[2020-02-20] MEDS: ATORVASTATIN 10 MG TAB PO SCH (21:20)
[2020-02-21] MEDS: SODIUM CHLORIDE 0.9% 1,000 ML IV SCH (00:39)
--- NOTE | 2020-02-21 00:47 | PN ---
PROGRESS NOTE DATE OF SERVICE: 02/20/2020 REASON FOR FOLLOWUP: Right gluteal pressure ulcer with previous positive culture with MRSA. INTERVAL HISTORY: Patient is currently afebrile. The patient is breathing comfortably. Patient denies having any chest pain. No shortness of breath or cough. No nausea. No abdominal pain. No diarrhea. PHYSICAL EXAMINATION: Blood pressure 140/70 with pulse 100. Temp is 97.8. He is 94% on room air. General description: The patient is an elderly male lying in bed in no distress. Respiratory system: Unlabored breathing with decreased breath sounds in the base. No wheeze. Heart S1, S2. Regular rate and rhythm. ABDOMEN: Soft, nontender. LABORATORY DATA: BUN of 17 and creatinine 1.05. Hemoglobin is 10.1, white count 8.4. Blood culture has been negative. DIAGNOSTIC IMPRESSION AND PLAN: Patient with significant bradyarrhythmia requiring a temporary pacemaker and need for permanent pacemaker placement. The patient blood culture has been negative. Did have a small wound on the right gluteal area with culture positive for MRSA, but no evidence of any acute cellulitis. The patient should be able to go for a pacemaker based on infectious disease standpoint. Continue supportive care. MMODL / IJN: [id number] /
[2020-02-21] MEDS: DOPamine DRIP 800 MG in DEXTROSE/WATER 1 250ML.BAG IV SCH (05:41)
[2020-02-21] MEDS: PANTOPRAZOLE 40 MG TABLET PO SCH (06:04)
[2020-02-21] MEDS: IPRATROPIUM 0.5 MG/2.5 ML NEBU INHALATION SCH ×3 (07:17→15:29)
[2020-02-21] MEDS: SYMBICORT 160-4.5 MCG INHALER INHALATION SCH (07:18)
[2020-02-21] MEDS: MAGNESIUM OXIDE 400 MG TAB PO SCH ×2 (08:32→16:48)
[2020-02-21] MEDS: THEOPHYLLINE 24 HOUR 200 MG CAP.ER.24H PO SCH (08:32)
[2020-02-21] MEDS: TAMSULOSIN 0.4 MG CAP.ER.24H PO SCH ×2 (08:33→16:48)
[2020-02-21] MEDS: ISOSORBIDE MONONITRATE ER 30 MG TAB.ER.24H PO SCH (08:33)
[2020-02-21] MEDS: APIXABAN 2.5 MG TABLET PO SCH ×2 (08:33→16:48)
[2020-02-21] MEDS: LINEZOLID 600 MG TAB PO SCH (08:33)
--- NOTE | 2020-02-21 10:40 | P.PN ---
Subjective HISTORY OF PRESENTING ILLNESS This is a pleasant 79-year-old gentleman who was recently discharged to [facility]. He had just been in the hospital with a sinus bradycardia, hypokalemia, hypomagnesemia. Patient has past medical history significant for atrial fibrillation, COPD, hypertension, hyperlipidemia, coronary artery disease with prior bypass surgery. On this most recent admission, his beta everton had been held because of significant bradycardia arrhythmias. Patient was also running a low potassium level, ultimately Aldactone had been added and patient's potassium was remaining stable. While at the [facility] care facility, patient was quite dizzy, lightheaded, and his heart rate was noted to be in the 30s, he was also having PVCs. He was readmitted to the hospital and seen in the intensive care unit this morning. His blood pressure 135/60, heart rate in the 30s to 40s. He is having evidence of significant pauses this morning. White blood cell count 11.4, hemoglobin 12.8, platelet count 186. Sodium 136, potassium 5.8, BUN 19, creatinine 1.5. Magnesium 2.4. BNP level 1120. Troponins 0.06, 0.06, 0.06. EKG on presentation here showed atrial fibrillation with right axis deviation and nonspecific ST-T wave changes, Patient is complaining of feeling quite nauseated, still complains of significant dizziness. We had ordered Kayexalate for the patient, however because of the nausea and vomiting he was unable to take that. The nurse attempted to given rectally, but patient continued to have significant pauses. For this reason patient was scheduled to undergo implantation of a temporary pacemaker. This will be performed this morning by Dr. Hair. Chest x-ray shows bilateral small pleural effusions increase as compared with recent exam. 02/21/2020: Patient was monitored and potassium corrected with bradycardia improved and therefore decision was made to take out TVP which was successfully taken out yesterday. Right femoral site looks clean and without significant hematoma. No further significant bradycardic episodes noted on telemetry. Patient denies any chest pain or pressure, shortness of breath. Still is very debilitated and weak. Patient anxious about hopefully going home today. PHYSICAL EXAMINATION Blood pressure 138/61 heart rate 93 afebrile and maintaining oxygen saturation on room air. CONSTITUTIONAL: No apparent distress. Chronically ill-appearing, poor recall of much of his medical history HEENT: Head is normocephalic. Pupils are equal, round. Sclerae anicteric. Mucous membranes of the mouth are moist. No JVD. No carotid bruit. CHEST EXAMINATION: Lungs are clear to auscultation. No chest wall tenderness is noted on palpation or with deep breathing. HEART EXAMINATION: Irregularly irregular rate and rhythm. S1, S2 heard. No murmurs, gallops or rub. ABDOMEN: Soft, nontender. Positive bowel sounds. EXTREMITIES: 2+ peripheral pulses, 2+ chronic lower extremity edema and no calf tenderness. NEUROLOGIC EXAMINATION: Patient is awake, alert and oriented x3. ASSESSMENT Assessment and plan #1 bradycardia with evidence of significant pauses, appears predominantly secondary to hyperkalemia #2 hyperkalemia, potassium 5.8 on presentation #3 recent hospitalization with hypokalemia #4 persistent atrial fibrillation #5 coronary artery disease with prior bypass surgery #6 hypertension #7 hyperlipidemia #8 COPD #9 pressure ulcer of the sacral region, stage II PLAN Patient's TVP was discontinued and heart rates appear improved with improvement and potassium. Patient chronically ill-appearing and with multiple medical comorbidities. Prognosis is guarded however patient appears stable for discharge from cardiology standpoint. Continue to hold spironolactone and GARY inhibitor/ARB and monitor K+. Objective - Vital Signs Vital signs: Vital Signs Temp 97.4 F L 02/21/20 07:03 Pulse 108 H 02/21/20 07:32 Resp 18 02/21/20 07:03 BP 138/61 02/21/20 07:03 Pulse Ox 94 L 02/21/20 07:03 Intake & Output 02/20/20 02/21/20 02/21/20 18:59 06:59 18:59 Intake Total 60 Output Total 40 300 Balance 20 -300 Weight 97.1 kg Intake: IV 60 0.9 60 Output: Urine 40 300 Other: Voiding Method Indwelling Catheter Indwelling Catheter - Labs CBC & Chem 7: 02/20/20 03:41 02/20/20 03:41 Labs: Microbiology - Last 24 Hours (Table) 02/18/20 03:38 Blood Culture - Preliminary Blood No Growth after 72 hours
--- NOTE | 2020-02-21 12:29 | P.DS ---
Providers Date of admission: 02/15/20 20:39 Attending physician: Beau Gaston Consults: 02/15/20 20:39 Consult Physician Urgent Consulting Provider: [facility] Consult Reason/Comments: Bradycardia Do you want consulting provider notified?: Yes 02/16/20 10:55 Consult Physician Urgent Consulting Provider: Ghassan Arcos Consult Reason/Comments: aleah, hyperkalemia Do you want consulting provider notified?: Yes 02/17/20 15:46 Consult Physician Routine Consulting Provider: Fior Olivo Consult Reason/Comments: History of MRSA in wound, needs permanent pacemaker. Do you want consulting provider notified?: Yes Primary care physician: [facility] Hospital Course: Diagnoses: -severe bradycardia (related to Chronic Atrial fibrillation with) secondary to hyperkalemia, no need for pacemaker placement per Quality Worker, however patient should avoid medication like lisinopril, spironolactone and potassium supplementation -Multiple sacral decubitus with severe pain with surrounding cellulitis, culture is growing MRSA. -Hyperkalemia , improved potassium to normal -Acute on chronic kidney injury -History of nonsustained ventricular tachycardia -History of Rectal pain and fecal impaction -chronic Gait dysfunction -Atrial fibrillation with bradycardia -Generalized weaknessin -Anemia, normocytic possibly multifactorial -history of CAD -CHF with chronic diastolic dysfunction -History of COPD, asthma -Hypertension -Hyperlipidemia -history of myocardial infarction -History of right lung cancer with wedge resection -History of severe pulmonary hypertension -Chronic kidney disease stage III --history of coronary artery disease, CABG -Claustrophobia -Remote history of nicotine dependence -Acute renal failure Hospital course: History of present illness This is a pleasant 79 years old male with multiple medical problems as below, who was recently discharged from the hospital 1-2 days ago. That time he had bradycardia with heart rate in the 30s or 40s but he refused to do pacemaker after he went to group home he change his mind and decided to come to the hospital to place pacemaker . On admission his heart rate was low as 20, he was admitted to the ICU for further monitoring . On admission his potassium was elevated to 5.5-5.8 associated with acute kidney injury 1.4-1.5, patient was treated appropriately with protocol and his creatinine back to normal at 1.0 and potassium was normal for 0.4. With the correction of the potassium his heart rate get back to normal that it is ranging between 50s to 110, no need for pacemaker per practice billing associate however patient needs to avoid medication which causes hyperkalemia, he needs to avoid lisinopril or other GARY inhibitor or arbs, avoid spironolactone, avoid potassium supplements Patient is on Zyvox for cellulitis of buttocks from previous admission Patient was cleared for discharge by all consultants including practice billing associate, certified low vision therapist and infectious disease Attempt to the patient and his yesterday and they agreement for the patient to go back to his rehab to continue his physical therapy prior to going home Problems and management plan were discussed with the patient and he verbalized understanding and acceptance Patient was found stable and can be discharged home however he needs follow-up as an outpatient. Patient was instructed to follow up with PCP within one week and patient agrees Gen: patient is a AAOx3, no distress. Generally weak CVS: S1-S2, RRR, no murmur Lungs: B/L CTA, no wheezing Abdomen: soft, no distention, no tenderness, positive bowel sounds Extremity: no leg edema or induration Time spent more than 35 minutes Plan - Discharge Summary Discharge Rx Participant: Yes New Discharge Prescriptions: No Action Tiotropium 18 Mcg/Puff [Spiriva] 1 cap INHALATION RT-DAILY@0800 Nitroglycerin Sl Tabs [Nitrostat] 0.4 mg SL Q5M PRN PRN Reason: Chest Pain Ferrous Sulfate [Iron] 325 mg PO TID@0800,1200,1700 Isosorbide Mononitrate [Isosorbide Mononitrate ER] 30 mg PO BID@0800,1700 Ipratropium-Albuterol Nebulize [Duoneb 0.5 mg-3 mg/3 ml Soln] 3 ml INHALATION RT-QID PRN PRN Reason: Shortness Of Breath Apixaban [Eliquis] 2.5 mg PO BID@0800,1700 Budesonide-Formot 160-4.5 Mcg [Symbicort 160-4.5 Mcg Inhaler] 2 puff INHALATION RT-BID@0800,1700 Folic Acid 1 mg PO DAILY@1700 Ascorbic Acid [Vitamin C] 250 mg PO DAILY@1700 cycloSPORINE 0.05% OPHTH SOLN [Restasis] 1 drop BOTH EYES Q12H Multivitamins, Thera [Multivitamin (formulary)] 1 tab PO DAILY@1700 Ibuprofen [Motrin] 400 mg PO Q6HR PRN tab PRN Reason: Mild Pain Or Fever > 100.5 Thiamine [Vitamin B-1] 100 mg PO DAILY@1200 tab Acetaminophen Tab [Tylenol] 650 mg PO Q6H PRN PRN Reason: Mild Pain Or Fever > 100.5 bisacodyL [Bisacodyl] 10 mg RECTAL DAILY PRN PRN Reason: Constipation Ensure Clear 120 ml PO TID@0800,1200,1700 Linezolid 600 mg PO BID@0800,2100 Magnesium Hydroxide [Milk of Magnesia Concentrate] 7,200 mg PO Q48H PRN PRN Reason: Constipation Magnesium Oxide [Mag-Ox] 400 mg PO BID@0800,1700 Na Phos,M-B/Na Phos,Di-Ba [Fleet Adult] 133 ml RECTAL DAILY PRN PRN Reason: Constipation Pantoprazole [Protonix] 40 mg PO DAILY@0600 Potassium Chloride ER [K-Dur 20] 40 meq PO BID@0800,1700 Simvastatin [Zocor] 20 mg PO HS@2100 Spironolactone [Aldactone] 25 mg PO DAILY@0600 Sulfamethox-Tmp 800-160Mg [Bactrim DS 800-160 mg] 1 tab PO BID@0800,2100 Tamsulosin HCl [Flomax] 0.4 mg PO BID@0800,1700 Theophylline 24 Hour [Fabrice-24] 200 mg PO DAILY@0800 Discharge Medication List Tiotropium 18 Mcg/Puff [Spiriva] 1 cap INHALATION RT-DAILY@0800 07/13/13 [History] Nitroglycerin Sl Tabs [Nitrostat] 0.4 mg SL Q5M PRN 03/19/16 [History] Ferrous Sulfate [Iron] 325 mg PO TID@0800,1200,1700 11/09/17 [History] Isosorbide Mononitrate [Isosorbide Mononitrate ER] 30 mg PO BID@0800,1700 11/09/17 [History] Ipratropium-Albuterol Nebulize [Duoneb 0.5 mg-3 mg/3 ml Soln] 3 ml INHALATION RT-QID PRN 03/22/18 [History] Apixaban [Eliquis] 2.5 mg PO BID@0800,1700 09/27/18 [History] Budesonide-Formot 160-4.5 Mcg [Symbicort 160-4.5 Mcg Inhaler] 2 puff INHALATION RT-BID@0800,169909/25/19 [History] Folic Acid 1 mg PO DAILY@169909/25/19 [History] Ascorbic Acid [Vitamin C] 250 mg PO DAILY@169902/09/20 [History] Multivitamins, Thera [Multivitamin (formulary)] 1 tab PO DAILY@169902/09/20 [History] cycloSPORINE 0.05% OPHTH SOLN [Restasis] 1 drop BOTH EYES Q12H 02/09/20 [History] Ibuprofen [Motrin] 400 mg PO Q6HR PRN tab 02/14/20 [Rx] Thiamine [Vitamin B-1] 100 mg PO DAILY@1200 tab 02/14/20 [Rx] Acetaminophen Tab [Tylenol] 650 mg PO Q6H PRN 02/15/20 [History] Ensure Clear 120 ml PO TID@0800,1200,169902/15/20 [History] Linezolid 600 mg PO BID@0800,209902/15/20 [History] Magnesium Hydroxide [Milk of Magnesia Concentrate] 7,200 mg PO Q48H PRN 02/15/20 [History] Magnesium Oxide [Mag-Ox] 400 mg PO BID@0800,169902/15/20 [History] Na Phos,M-B/Na Phos,Di-Ba [Fleet Adult] 133 ml RECTAL DAILY PRN 02/15/20 [History] Pantoprazole [Protonix] 40 mg PO DAILY@0602/15/20 [History] Potassium Chloride ER [K-Dur 20] 40 meq PO BID@0800,169902/15/20 [History] Simvastatin [Zocor] 20 mg PO HS@209902/15/20 [History] Spironolactone [Aldactone] 25 mg PO DAILY@0600 02/15/20 [History] Sulfamethox-Tmp 800-160Mg [Bactrim DS 800-160 mg] 1 tab PO BID@0800,209902/15/20 [History] Tamsulosin HCl [Flomax] 0.4 mg PO BID@0800,169902/15/20 [History] Theophylline 24 Hour [Fabrice-24] 200 mg PO DAILY@0800 02/15/20 [History] bisacodyL [Bisacodyl] 10 mg RECTAL DAILY PRN 02/15/20 [History] Follow up Appointment(s)/Referral(s): [facility],Clinic [Primary Care Provider] - 1-2 days
[2020-02-21 12:34] VITALS: BP 155/54; RESP 20; TEMP 98.2
--- NOTE | 2020-02-21 14:02 | PN ---
PROGRESS NOTE DATE OF SERVICE: 02/21/2020 REASON FOR FOLLOWUP: Right gluteal wound and positive culture. INTERVAL HISTORY: The patient is currently afebrile, patient is breathing comfortably. The patient transvenous pacemaker was removed yesterday and so far no evidence of any significant arrhythmia. Cardiology does not want any permanent pacemaker. The patient denies having any chest pain, cough or abdominal pain. The patient really wants to go home. PHYSICAL EXAMINATION: Blood pressure 155/54 with a pulse of 88, temperature 98.2 he is 99% on 2 L nasal cannula. General description is an elderly male up in the bed, in no distress. RESPIRATORY SYSTEM: Unlabored breathing, clear to auscultation anteriorly. HEART: S1, S2. Regular rate and rhythm. ABDOMEN: Soft, no tenderness. LABS: Hemoglobin is 10, white count 8.4, BUN of 17, creatinine 0.5. IMPRESSION/PLAN: Patient with positive culture from his right gluteal site, most superficial possible colonized with no evidence of any cellulitis. Recommend no antibiotic on discharge, local care to continue with Calmoseptine lotion. MMODL / IJN: [id number] /
[2020-02-21 14:49] VITALS: PULSE 100
[2020-02-21] MEDS: ASCORBIC ACID 500 MG TAB PO SCH (16:48)
[2020-02-21] MEDS: THIAMINE 100 MG TAB PO SCH (16:49)
== END 2020-02-21 17:40 | DRG 260 ==
LOC: EC 19:05 → 3SCARD 20:39 → 2SICU 02-16 05:31 → 5NMEDONC 02-20 15:32
PROVIDERS: ADMIT Hospitalist; ATTEND Hospitalist
PROC: 5A1223Z Performance of Cardiac Pacing, Continuous (ICD-10-PCS; 2020-02-16)
PROC: 02HK3JZ Insertion of Pacemaker Lead into Right Ventricle, Percutaneous Approach (ICD-10-PCS; principal; 2020-02-16 13:00)
PROC: 02P Heart and Great Vessels, Removal (ICD-10-PCS; 2020-02-19)
DX: I44.2 Atrioventricular block, complete (principal); N17.0 Acute kidney failure with tubular necrosis; L03.818 Cellulitis of other sites; I50.32 Chronic diastolic (congestive) heart failure; I13.0 Hypertensive heart and chronic kidney disease with heart failure and stage 1 through stage 4 chronic kidney disease, or unspecified chronic kidney disease; E87.2 Acidosis; L89.152 Pressure ulcer of sacral region, stage 2; I27.20 Pulmonary hypertension, unspecified; D63.1 Anemia in chronic kidney disease; L89.311 Pressure ulcer of right buttock, stage 1; N18.30 Chronic kidney disease, stage 3 unspecified; I48.19 Other persistent atrial fibrillation; J44.9 Chronic obstructive pulmonary disease, unspecified; R00.1 Bradycardia, unspecified; Z20.828 Contact with and (suspected) exposure to other viral communicable diseases; B95.62 Methicillin resistant Staphylococcus aureus infection as the cause of diseases classified elsewhere; E87.5 Hyperkalemia; K44.9 Diaphragmatic hernia without obstruction or gangrene; I25.10 Atherosclerotic heart disease of native coronary artery without angina pectoris; E78.5 Hyperlipidemia, unspecified; K59.00 Constipation, unspecified; I25.2 Old myocardial infarction; R26.9 Unspecified abnormalities of gait and mobility; T50.0X5A Adverse effect of mineralocorticoids and their antagonists, initial encounter; Z79.01 Long term (current) use of anticoagulants; Z79.51 Long term (current) use of inhaled steroids; Z79.899 Other long term (current) drug therapy; Z87.891 Personal history of nicotine dependence; Z90.2 Acquired absence of lung [part of]; Z85.118 Personal history of other malignant neoplasm of bronchus and lung; Z86.010 Personal history of colon polyps; Z86.14 Personal history of Methicillin resistant Staphylococcus aureus infection; Z86.79 Personal history of other diseases of the circulatory system; Z90.49 Acquired absence of other specified parts of digestive tract; Z95.1 Presence of aortocoronary bypass graft; Z98.890 Other specified postprocedural states; Z87.81 Personal history of (healed) traumatic fracture; Z80.0 Family history of malignant neoplasm of digestive organs; Z83.3 Family history of diabetes mellitus
CPT/HCPCS: 33210; 36415; 71046; 80048; 80053; 83735; 83880; 84132; 84145; 84443; 84484; 85025; 85610; 85652; 85730; 86140; 87040; 87635; 92953; 93005; 94640; 96361; 96365; 96366; 96368; 96375; 99285

== ENCOUNTER 2020-02-25 11:35 | Inpatient (IN) | payer OTHER, MEDICARE ==
[2020-02-25] MEDS ORDERED: MIDAZOLAM 1 MG/ML 5 ML VIAL IV STA (11:51)
[2020-02-25 11:54] LABS: Basophils % (A) 0 %; Eosinophils # (A) 0.1 k/uL (0-0.7); Eosinophils % (A) 1 %; HCT 35.8 % (39.0-53.0); HGB 11.3 gm/dL (13.0-17.5); Hypochromasia Slight; Lymphocytes # (A) 1.6 k/uL (1.0-4.8); Lymphocytes % (A) 17 %; MCH 31.2 pg (25.0-35.0); MCHC 31.5 g/dL (31.0-37.0); MCV 99.1 fL (80.0-100.0); Macrocytosis Slight; Monocytes # (A) 0.4 k/uL (0-1.0); Monocytes % (A) 5 %; Neutrophils % (A) 75 %; Platelet Count 127 k/uL (150-450); RBC 3.61 m/uL (4.30-5.90); WBC 9.3 k/uL (3.8-10.6)
[2020-02-25 11:56] LABS: Glucose,Whole Blood 167 mg/dL (75-99)
[2020-02-25 12:03] LABS: Albumin 2.7 g/dL (3.5-5.0); Calcium 8.2 mg/dL (8.4-10.2); Magnesium 2.2 mg/dL (1.6-2.3); Potassium 4.9 mmol/L (3.5-5.1); Total Bilirubin 1.3 mg/dL (0.2-1.3); Total Protein 6.5 g/dL (6.3-8.2)
[2020-02-25 12:13] LABS: INR 1.3 (<1.2); Partial Thromboplastin Time 24.3 sec (22.0-30.0); Prothrombin Time 13.4 sec (9.0-12.0)
[2020-02-25 12:20] LABS: D-Dimer 1.94 mg/L FEU (<0.60)
[2020-02-25 12:34] LABS: Appearance,Urine Turbid (Clear); Bacteria,Urine Occasional /hpf; Bilirubin,Urine Negative (Negative); Blood,Urine Moderate (Negative); Color,Urine Yellow; Glucose,Urine (UA) Negative (Negative); Ketones,Urine Negative (Negative); Leukocyte Esterase,Urine Small (Negative); Nitrite,Urine Negative (Negative); PH, Urine 5.5 (5.0-8.0); Protein,Urine 2+ (Negative); RBC,Urine 65 /hpf (0-5); Specific Gravity,Urine 1.019 (1.001-1.035); Urobilinogen,Urine <2.0 mg/dL (<2.0); WBC,Urine >182 /hpf (0-5)
--- NOTE | 2020-02-25 13:00 | CT ---
EXAMINATION TYPE: CT brain chelseyine wo con DATE OF EXAM: 02/25/2020 COMPARISON: 02/12/2020 HISTORY: Patient found unresponsive, possible injury CT DLP: 1494.8 mGycm, Automated exposure control for dose reduction was used. CONTRAST: Patient injected with 0 mL of Isovue 300. CT of the brain is performed utilizing 3 mm thick sections through the posterior fossa and 3 mm thick sections through the remaining calvarium. Study is performed within 24 hours of arrival to the hospital. No abnormal hyperdensity is present to suggest an acute intracranial hemorrhage. No mass lesion is evident. No acute infarcts are evident. Periventricular white matter hypodensity is present, likely on the ba sis of chronic white matter ischemic changes Ventricles and sulci are prominent for the patient age. All mucosal thickenings within ethmoid air cells. Remaining paranasal sinuses and mastoid air cells a re clear. IMPRESSIONS: 1. Atrophy with periventricular white matter ischemic changes CT cervical spine. COMPARISON: None CT of the cervical spine is performed in the axial plane at 2 mm thick sections. Reconstructed image s in the coronal, and sagittal plane are reviewed on the computer. No acute fractures are evident. Prevertebral space is normal. There is anterior compression of C7 of indeterminate age. Remaining vertebral body heights are preser trey. No posterior wall displacement is evident. There is mild disc space narrowing C3-4. Endplate spurring has mild anterior thecal sac flattening. U ncovertebral joint hypertrophy has moderate left and severe right foraminal stenosis. No spinal canal stenosis is evident. IMPRESSIONS: 1. Compression deformity of C7 of indeterminate age. This may be slightly progressive from the 2019 exam. 2. Chronic changes throughout the cervical spine
[2020-02-25 13:06] LABS: ABG Base Excess -2.3 mmol/L; ABG HCO3 23 mmol/L (21-25); ABG PCO2 39 mmHg (35-45); ABG PH 7.38 (7.35-7.45); ABG PO2 >400 mmHg (83-108); ABG TCO2 24 mmol/L (19-24); Allen Test Performed? Yes
--- NOTE | 2020-02-25 13:10 | XR ---
EXAMINATION TYPE: XR soft tissue neck DATE OF EXAM: 02/25/2020 COMPARISON: 11/08/2018 HISTORY: Mass TECHNIQUE: 2 view soft tissue neck FINDINGS: Endotracheal tube is present with the tip above the kendy. Prevertebral space appears norm al. IMPRESSION: 1. Endotracheal tube tip above kendy
--- NOTE | 2020-02-25 13:12 | XR ---
EXAMINATION TYPE: XR chest 1V portable DATE OF EXAM: 02/25/2020 COMPARISON: 02/15/2020 INDICATION: Chest pain TECHNIQUE: Single frontal view of the chest is obtained. FINDINGS: The heart size is normal. The pulmonary vasculature is normal. Mild nonspecific infiltrate is in the right lung. IMPRESSION: 1. Mild right midlung infiltrate.
--- NOTE | 2020-02-25 13:47 | ED ---
CPR HPI - General Chief Complaint: Cardiac Arrest/CPR Stated Complaint: Cardiac Arrest Time Seen by Provider: 02/25/20 11:35 Source: EMS, RN notes reviewed, old records reviewed Mode of arrival: EMS Limitations: altered mental status - History of Present Illness Initial Comments: This is a 78-year-old male who presented from a [facility] after he was found be unresponsive. CPR was initiated patient required intubation. He did have return of spontaneous circulation and again was intubated by paramedics. He was brought here for further evaluation. Patient apparently been awake this prior to this. No falls reported. Initially this was unknown. MD Complaint: found unresponsive, stopped breathing - Related Data Home Medications Medication Instructions Recorded Confirmed Tiotropium 18 Mcg/Puff [Spiriva] 1 cap INHALATION RT-DAILY@0800 07/13/13 02/15/20 Nitroglycerin Sl Tabs [Nitrostat] 0.4 mg SL Q5M PRN 03/19/16 02/15/20 Ferrous Sulfate [Iron] 325 mg PO TID@0800,1200,1700 11/09/17 02/15/20 Isosorbide Mononitrate [Isosorbide 30 mg PO BID@0800,1700 11/09/17 02/15/20 Mononitrate ER] Ipratropium-Albuterol Nebulize 3 ml INHALATION RT-QID PRN 03/22/18 02/15/20 [Duoneb 0.5 mg-3 mg/3 ml Soln] Apixaban [Eliquis] 2.5 mg PO BID@0800,1700 09/27/18 02/15/20 Budesonide-Formot 160-4.5 Mcg 2 puff INHALATION RT-BID@0800,1700 09/25/19 02/15/20 [Symbicort 160-4.5 Mcg Inhaler] Folic Acid 1 mg PO DAILY@1700 09/25/19 02/15/20 Ascorbic Acid [Vitamin C] 250 mg PO DAILY@1700 02/09/20 02/15/20 Multivitamins, Thera [Multivitamin 1 tab PO DAILY@1700 02/09/20 02/15/20 (formulary)] cycloSPORINE 0.05% OPHTH SOLN 1 drop BOTH EYES Q12H 02/09/20 02/15/20 [Restasis] Acetaminophen Tab [Tylenol] 650 mg PO Q6H PRN 02/15/20 02/15/20 Ensure Clear 120 ml PO TID@0800,1200,1700 02/15/20 02/15/20 Magnesium Hydroxide [Milk of 7,200 mg PO Q48H PRN 02/15/20 02/15/20 Magnesia Concentrate] Magnesium Oxide [Mag-Ox] 400 mg PO BID@0800,1700 02/15/20 02/15/20 Na Phos,M-B/Na Phos,Di-Ba [Fleet 133 ml RECTAL DAILY PRN 02/15/20 02/15/20 Adult] Pantoprazole [Protonix] 40 mg PO DAILY@0600 02/15/20 02/15/20 Simvastatin [Zocor] 20 mg PO HS@2100 02/15/20 02/15/20 Tamsulosin HCl [Flomax] 0.4 mg PO BID@0800,1700 02/15/20 02/15/20 Theophylline 24 Hour [Fabrice-24] 200 mg PO DAILY@0800 02/15/20 02/15/20 bisacodyL [Bisacodyl] 10 mg RECTAL DAILY PRN 02/15/20 02/15/20 Linezolid 600 mg PO Q12H 02/25/20 02/25/20 Nystatin 100,000 Unit/ml Susp 5 ml PO QID 02/25/20 02/25/20 [Mycostatin Oral Susp] bisacodyL [Dulcolax] 10 mg RECTAL DAILY PRN 02/25/20 02/25/20 Previous Rx's Medication Instructions Recorded Thiamine [Vitamin B-1] 100 mg PO DAILY@1200 tab 02/14/20 Allergies Allergy/AdvReac Type Severity Reaction Status Date / Time No Known Allergies Allergy Verified 02/25/20 14:46 Review of Systems ROS Statement: Those systems with pertinent positive or pertinent negative responses have been documented in the HPI. ROS Other: All systems not noted in ROS Statement are negative. Limitations: ROS unobtainable due to patients medical condition Past Medical History Past Medical History: Atrial Fibrillation, Coronary Artery Disease (CAD), Cancer, Heart Failure, COPD, Hyperlipidemia, Hypertension, Myocardial Infarction (CA), Renal Disease Additional Past Medical History / Comment(s): R lung cancer with wedge r esection-no chemo or radiation, severe pulmonary HTN, CKD stage III, anemia,hiatal hernia, constipation/benign polyp, bradycardia. Last Myocardial Infarction Date:: 2002 History of Any Multi-Drug Resistant Organisms: MRSA Date of last positivie culture/infection: 02/10/20 MDRO Source:: Buttock Past Surgical History: Appendectomy, Coronary Bypass/CABG, Heart Catheterization , Orthopedic Surgery Additional Past Surgical History / Comment(s): 2002 CABG 3 vessel, cardiac angioplasty, R lung wedge resection, R hip closed reduction/ORIF, EGD, colonosc opies/polypectgomies. Past Anesthesia/Blood Transfusion Reactions: No Reported Reaction Additional Past Anesthesia/Blood Transfusion Reaction / Comment(s): CLAUSTERPHOBIA. Pt has received blood in past without reaction. Past Psychological History: No Psychological Hx Reported Smoking Status: Former smoker Past Alcohol Use History: None Reported Past Drug Use History: None Reported - Past Family History Father Family Medical History: Cancer Additional Family Medical History / Comment(s): of pancreatic cancer Mother Family Medical History: Diabetes Mellitus Additional Family Medical History / Comment(s): AT AGE 90 WAS IN PRETTY GOOD HEALTH FROM OLD AGE Brother(s) Family Medical History: Diabetes Mellitus Additional Family Medical History / Comment(s): 2 BROTHERS HAVE DIABETES General Exam - General Exam Comments Initial Comments: This a well-developed well-nourished unresponsive male who is currently on breast or assistance the endotracheal tube Limitations: altered mental status General appearance: other (Responsive) Head exam: Present: atraumatic, normocephalic, normal inspection Eye exam: Present: other (The patient demonstrated bilateral upper gaze with pupils approximately 3 mm and unreactive). Absent: scleral icterus, conjunctival injection, periorbital swelling ENT exam: Present: mucous membranes moist, other (Oral tracheal tube in place) Neck exam: Present: normal inspection, other (No stridor JVD or bruits). Absent: tenderness, meningismus, lymphadenopathy Respiratory exam: Present: normal lung sounds bilaterally. Absent: respiratory distress, wheezes, rales, rhonchi, stridor Cardiovascular Exam: Present: regular rate, normal rhythm, normal heart sounds. Absent: systolic murmur, diastolic murmur, rubs, gallop, clicks GI/Abdominal exam: Present: soft, normal bowel sounds. Absent: distended, tenderness, guarding, rebound, rigid Extremities exam: Present: normal inspection, normal capillary refill. Absent: full ROM, tenderness, pedal edema, joint swelling, calf tenderness Back exam: Present: normal inspection Neurological exam: Present: altered Psychiatric exam: Present: other (To evaluate) Skin exam: Present: warm, dry, intact, normal color. Absent: rash Course Vital Signs 02/25/20 02/25/20 02/25/20 11:38 12:00 12:01 Temperature 97.8 F Pulse Rate 65 64 Respiratory 18 15 18 Rate Blood Pressure 127/72 106/57 O2 Sat by Pulse 100 99 Oximetry 02/25/20 02/25/20 02/25/20 12:05 12:10 12:15 Temperature Pulse Rate 57 L 53 L Respiratory 13 15 Rate Blood Pressure 110/49 129/58 124/57 O2 Sat by Pulse 99 100 Oximetry 02/25/20 02/25/20 02/25/20 12:30 12:35 12:40 Temperature Pulse Rate 45 L 52 L 50 L Respiratory 12 14 13 Rate Blood Pressure 84/60 120/53 131/63 O2 Sat by Pulse 100 95 97 Oximetry 02/25/20 02/25/20 02/25/20 12:45 12:50 12:55 Temperature Pulse Rate 54 L 53 L 48 L Respiratory 14 12 16 Rate Blood Pressure 138/67 133/59 134/68 O2 Sat by Pulse 100 89 L 95 Oximetry 02/25/20 02/25/20 02/25/20 13:00 13:05 13:10 Temperature Pulse Rate 51 L 58 L 47 L Respiratory 11 L 15 18 Rate Blood Pressure 129/56 135/56 124/61 O2 Sat by Pulse 100 100 100 Oximetry 02/25/20 02/25/20 02/25/20 13:15 13:20 13:25 Temperature Pulse Rate 57 L 55 L 48 L Respiratory 15 17 17 Rate Blood Pressure 132/55 126/65 130/66 O2 Sat by Pulse 100 100 100 Oximetry 02/25/20 02/25/20 02/25/20 13:30 13:35 13:40 Temperature Pulse Rate 59 L 55 L Respiratory 15 13 Rate Blood Pressure 141/58 123/66 123/66 O2 Sat by Pulse 100 100 Oximetry 02/25/20 02/25/20 02/25/20 13:55 14:00 14:05 Temperature Pulse Rate 61 52 L 59 L Respiratory 12 14 17 Rate Blood Pressure 145/60 145/60 O2 Sat by Pulse 100 100 Oximetry Medical Decision Making - Medical Decision Making I did discuss the findings with the patient's also with Dr. Hernandez and Dr. Naik who did come to see the patient. He will be admitted additionally cardiology will be consulted - Lab Data Result diagrams: 02/25/20 11:45 02/25/20 11:45 Lab Results 02/25/20 02/25/20 02/25/20 Range/Units 11:45 11:45 11:45 WBC 9.3 (3.8-10.6) k/uL RBC 3.61 L (4.30-5.90) m/uL Hgb 11.3 L (13.0-17.5) gm/dL Hct 35.8 L (39.0-53.0) % MCV 99.1 (80.0-100.0) fL MCH 31.2 (25.0-35.0) pg MCHC 31.5 (31.0-37.0) g/dL RDW 16.0 H (11.5-15.5) % Plt Count 127 L (150-450) k/uL MPV 9.0 Neutrophils % 75 % Lymphocytes % 17 % Monocytes % 5 % Eosinophils % 1 % Basophils % 0 % Neutrophils # 7.0 (1.3-7.7) k/uL Lymphocytes # 1.6 (1.0-4.8) k/uL Monocytes # 0.4 (0-1.0) k/uL Eosinophils # 0.1 (0-0.7) k/uL Basophils # 0.0 (0-0.2) k/uL Hypochromasia Slight Macrocytosis Slight PT 13.4 H (9.0-12.0) sec INR 1.3 H (<1.2) APTT 24.3 (22.0-30.0) sec D-Dimer 1.94 H (<0.60) mg/L FEU Sample Site ABG pH (7.35-7.45) ABG pCO2 (35-45) mmHg ABG pO2 (83-108) mmHg ABG HCO3 (21-25) mmol/L ABG Total CO2 (19-24) mmol/L ABG O2 Saturation (94-97) % ABG Base Excess mmol/L Zach Test FiO2 % Sodium 136 L (137-145) mmol/L Potassium 4.9 (3.5-5.1) mmol/L Chloride 108 H (98-107) mmol/L Carbon Dioxide 20 L (22-30) mmol/L Anion Gap 8 mmol/L BUN 16 (9-20) mg/dL Creatinine 1.18 (0.66-1.25) mg/dL Est GFR (CKD-EPI)AfAm 68 (>60 ml/min/1.73 sqM) Est GFR (CKD-EPI)NonAf 58 (>60 ml/min/1.73 sqM) Glucose 129 H (74-99) mg/dL POC Glucose (mg/dL) (75-99) mg/dL POC Glu Steel Fabricator ID Lactic Ac Sepsis Rflx Plasma Lactic Acid Savage (0.7-2.0) mmol/L Calcium 8.2 L (8.4-10.2) mg/dL Magnesium 2.2 (1.6-2.3) mg/dL Total Bilirubin 1.3 (0.2-1.3) mg/dL AST 59 (17-59) U/L ALT 28 (4-49) U/L Alkaline Phosphatase 40 (38-126) U/L Creatine Kinase 41 L (55-170) U/L Troponin I (0.000-0.034) ng/mL NT-Pro-B Natriuret Pep pg/mL Total Protein 6.5 (6.3-8.2) g/dL Albumin 2.7 L (3.5-5.0) g/dL Lipase 64 (23-300) U/L Urine Color Urine Appearance (Clear) Urine pH (5.0-8.0) Ur Specific [place] (1.001-1.035) Urine Protein (Negative) Urine Glucose (UA) (Negative) Urine Ketones (Negative) Urine Blood (Negative) Urine Nitrite (Negative) Urine Bilirubin (Negative) Urine Urobilinogen (<2.0) mg/dL Ur Leukocyte Esterase (Negative) Urine RBC (0-5) /hpf Urine WBC (0-5) /hpf Urine WBC Clumps (None) /hpf Urine Bacteria (None) /hpf 02/25/20 02/25/20 02/25/20 Range/Units 11:45 11:45 11:46 WBC (3.8-10.6) k/uL RBC (4.30-5.90) m/uL Hgb (13.0-17.5) gm/dL Hct (39.0-53.0) % MCV (80.0-100.0) fL MCH (25.0-35.0) pg MCHC (31.0-37.0) g/dL RDW (11.5-15.5) % Plt Count (150-450) k/uL MPV Neutrophils % % Lymphocytes % % Monocytes % % Eosinophils % % Basophils % % Neutrophils # (1.3-7.7) k/uL Lymphocytes # (1.0-4.8) k/uL Monocytes # (0-1.0) k/uL Eosinophils # (0-0.7) k/uL Basophils # (0-0.2) k/uL Hypochromasia Macrocytosis PT (9.0-12.0) sec INR (<1.2) APTT (22.0-30.0) sec D-Dimer (<0.60) mg/L FEU Sample Site ABG pH (7.35-7.45) ABG pCO2 (35-45) mmHg ABG pO2 (83-108) mmHg ABG HCO3 (21-25) mmol/L ABG Total CO2 (19-24) mmol/L ABG O2 Saturation (94-97) % ABG Base Excess mmol/L Zach Test FiO2 % Sodium (137-145) mmol/L Potassium (3.5-5.1) mmol/L Chloride (98-107) mmol/L Carbon Dioxide (22-30) mmol/L Anion Gap mmol/L BUN (9-20) mg/dL Creatinine (0.66-1.25) mg/dL Est GFR (CKD-EPI)AfAm (>60 ml/min/1.73 sqM) Est GFR (CKD-EPI)NonAf (>60 ml/min/1.73 sqM) Glucose (74-99) mg/dL POC Glucose (mg/dL) (75-99) mg/dL POC Glu Steel Fabricator ID Lactic Ac Sepsis Rflx Plasma Lactic Acid Savage 4.6 H* (0.7-2.0) mmol/L Calcium (8.4-10.2) mg/dL Magnesium (1.6-2.3) mg/dL Total Bilirubin (0.2-1.3) mg/dL AST (17-59) U/L ALT (4-49) U/L Alkaline Phosphatase (38-126) U/L Creatine Kinase (55-170) U/L Troponin I 0.043 H* (0.000-0.034) ng/mL NT-Pro-B Natriuret Pep 1640 pg/mL Total Protein (6.3-8.2) g/dL Albumin (3.5-5.0) g/dL Lipase (23-300) U/L Urine Color Urine Appearance (Clear) Urine pH (5.0-8.0) Ur Specific [place] (1.001-1.035) Urine Protein (Negative) Urine Glucose (UA) (Negative) Urine Ketones (Negative) Urine Blood (Negative) Urine Nitrite (Negative) Urine Bilirubin (Negative) Urine Urobilinogen (<2.0) mg/dL Ur Leukocyte Esterase (Negative) Urine RBC (0-5) /hpf Urine WBC (0-5) /hpf Urine WBC Clumps (None) /hpf Urine Bacteria (None) /hpf 02/25/20 02/25/20 02/25/20 Range/Units 11:49 11:57 12:39 WBC (3.8-10.6) k/uL RBC (4.30-5.90) m/uL Hgb (13.0-17.5) gm/dL Hct (39.0-53.0) % MCV (80.0-100.0) fL MCH (25.0-35.0) pg MCHC (31.0-37.0) g/dL RDW (11.5-15.5) % Plt Count (150-450) k/uL MPV Neutrophils % % Lymphocytes % % Monocytes % % Eosinophils % % Basophils % % Neutrophils # (1.3-7.7) k/uL Lymphocytes # (1.0-4.8) k/uL Monocytes # (0-1.0) k/uL Eosinophils # (0-0.7) k/uL Basophils # (0-0.2) k/uL Hypochromasia Macrocytosis PT (9.0-12.0) sec INR (<1.2) APTT (22.0-30.0) sec D-Dimer (<0.60) mg/L FEU Sample Site ABG pH (7.35-7.45) ABG pCO2 (35-45) mmHg ABG pO2 (83-108) mmHg ABG HCO3 (21-25) mmol/L ABG Total CO2 (19-24) mmol/L ABG O2 Saturation (94-97) % ABG Base Excess mmol/L Zach Test FiO2 % Sodium (137-145) mmol/L Potassium (3.5-5.1) mmol/L Chloride (98-107) mmol/L Carbon Dioxide (22-30) mmol/L Anion Gap mmol/L BUN (9-20) mg/dL Creatinine (0.66-1.25) mg/dL Est GFR (CKD-EPI)AfAm (>60 ml/min/1.73 sqM) Est GFR (CKD-EPI)NonAf (>60 ml/min/1.73 sqM) Glucose (74-99) mg/dL POC Glucose (mg/dL) 167 H (75-99) mg/dL POC Glu Steel Fabricator ID Cookie Morris Lactic Ac Sepsis Rflx Y Plasma Lactic Acid Savage (0.7-2.0) mmol/L Calcium (8.4-10.2) mg/dL Magnesium (1.6-2.3) mg/dL Total Bilirubin (0.2-1.3) mg/dL AST (17-59) U/L ALT (4-49) U/L Alkaline Phosphatase (38-126) U/L Creatine Kinase (55-170) U/L Troponin I (0.000-0.034) ng/mL NT-Pro-B Natriuret Pep pg/mL Total Protein (6.3-8.2) g/dL Albumin (3.5-5.0) g/dL Lipase (23-300) U/L Urine Color Yellow Urine Appearance Turbid (Clear) Urine pH 5.5 (5.0-8.0) Ur Specific [place] 1.019 (1.001-1.035) Urine Protein 2+ H (Negative) Urine Glucose (UA) Negative (Negative) Urine Ketones Negative (Negative) Urine Blood Moderate H (Negative) Urine Nitrite Negative (Negative) Urine Bilirubin Negative (Negative) Urine Urobilinogen <2.0 (<2.0) mg/dL Ur Leukocyte Esterase Small H (Negative) Urine RBC 65 H (0-5) /hpf Urine WBC >182 H (0-5) /hpf Urine WBC Clumps Moderate H (None) /hpf Urine Bacteria Occasional H (None) /hpf 02/25/20 Range/Units 13:03 WBC (3.8-10.6) k/uL RBC (4.30-5.90) m/uL Hgb (13.0-17.5) gm/dL Hct (39.0-53.0) % MCV (80.0-100.0) fL MCH (25.0-35.0) pg MCHC (31.0-37.0) g/dL RDW (11.5-15.5) % Plt Count (150-450) k/uL MPV Neutrophils % % Lymphocytes % % Monocytes % % Eosinophils % % Basophils % % Neutrophils # (1.3-7.7) k/uL Lymphocytes # (1.0-4.8) k/uL Monocytes # (0-1.0) k/uL Eosinophils # (0-0.7) k/uL Basophils # (0-0.2) k/uL Hypochromasia Macrocytosis PT (9.0-12.0) sec INR (<1.2) APTT (22.0-30.0) sec D-Dimer (<0.60) mg/L FEU Sample Site rrad ABG pH 7.38 (7.35-7.45) ABG pCO2 39 (35-45) mmHg ABG pO2 >400 H (83-108) mmHg ABG HCO3 23 (21-25) mmol/L ABG Total CO2 24 (19-24) mmol/L ABG O2 Saturation 100.0 H (94-97) % ABG Base Excess -2.3 mmol/L Zach Test Yes FiO2 100 % Sodium (137-145) mmol/L Potassium (3.5-5.1) mmol/L Chloride (98-107) mmol/L Carbon Dioxide (22-30) mmol/L Anion Gap mmol/L BUN (9-20) mg/dL Creatinine (0.66-1.25) mg/dL Est GFR (CKD-EPI)AfAm (>60 ml/min/1.73 sqM) Est GFR (CKD-EPI)NonAf (>60 ml/min/1.73 sqM) Glucose (74-99) mg/dL POC Glucose (mg/dL) (75-99) mg/dL POC Glu Steel Fabricator ID Lactic Ac Sepsis Rflx Plasma Lactic Acid [place] (0.7-2.0) mmol/L Calcium (8.4-10.2) mg/dL Magnesium (1.6-2.3) mg/dL Total Bilirubin (0.2-1.3) mg/dL AST (17-59) U/L ALT (4-49) U/L Alkaline Phosphatase (38-126) U/L Creatine Kinase (55-170) U/L Troponin I (0.000-0.034) ng/mL NT-Pro-B Natriuret Pep pg/mL Total Protein (6.3-8.2) g/dL Albumin (3.5-5.0) g/dL Lipase (23-300) U/L Urine Color Urine Appearance (Clear) Urine pH (5.0-8.0) Ur Specific [place] (1.001-1.035) Urine Protein (Negative) Urine Glucose (UA) (Negative) Urine Ketones (Negative) Urine Blood (Negative) Urine Nitrite (Negative) Urine Bilirubin (Negative) Urine Urobilinogen (<2.0) mg/dL Ur Leukocyte Esterase (Negative) Urine RBC (0-5) /hpf Urine WBC (0-5) /hpf Urine WBC Clumps (None) /hpf Urine Bacteria (None) /hpf - Radiology Data Radiology results: report reviewed (Imaging reviewed evidence some effusion (right no PE please see complete report), image reviewed Critical Care Time Critical Care Time: Yes Total Critical Care Time: 49 Critical Care Time: Includes the initial presentation history physical labs x-rays orders discussed with paramedics, multiple reevaluation the patient discussed with family discussion with Dr. Hernandez admission orders and documentation of the above Disposition Clinical Impression: Cardiac arrest, Signs of return of spontaneous circulation, Chronic a-fib, Cerebral anoxia, Acute respiratory failure Disposition: ADMITTED IP TO THIS [facility] Condition: Critical Referrals: Pete Childs DO [Primary Care Provider] - 1-2 days
--- NOTE | 2020-02-25 14:26 | CT ---
CT CHEST FOR PULMONARY EMBOLISM. EXAMINATION TYPE: CT angio chest DATE OF EXAM: 02/25/2020 INDICATION: pe suspected CT DLP: 893 mGycm, Automated exposure control for dose reduction was used. CONTRAST: Patient injected with 100 mL of Isovue 370. COMPARISON: 09/02/2019 TECHNIQUE: CT of the chest is performed on a spiral scan at 2 mm thick sections. Study is performed with intravenous contrast timed for evaluation for pulmonary embolism. This will limit additional po rtions of the evaluation. 3-D MIP images reconstructed by the technologist are reviewed on the compu ter in the coronal and sagittal planes. FINDINGS: The patient is intubated. Endotracheal tube tip is above the kendy. No persistent filling defects are evident to suggest an acute pulmonary embolism. No mediastinal or hilar adenopathy enlarged by CT criteria is evident. The ascending aorta diameter at the level of the main pulmonary artery is 2.8 cm. The main pulmonary artery diameter at the bifur cation is 3.2 cm. Consider pulmonary hypertension within the differential There is a moderate left and a minimal right pleural effusion. No right heart strain is evident. Mild emphysematous changes are evident within the upper lung horton. Limited CT section through the upper abdomen are unremarkable. IMPRESSIONS: 1. No acute pulmonary embolism. 2. Moderate left and minimal right pleural effusion. 3. Mild Emphysematous changes within the upper lung. 4. Endotracheal tube tip above kendy horton
[2020-02-25] MEDS ORDERED: NALOXONE 0.4 MG/ML 1 ML VIAL IV PRN (14:55)
--- NOTE | 2020-02-25 15:15 | P.CNPUL ---
History of Present Illness Consult date: 02/25/20 Chief complaint: Cardiac arrest History of present illness: 78-year-old male patient was brought into the emergency department after he was involved in a cardiac arrest at the longterm. The patient was found to be unresponsive. The EMS sheet is not available. I discussed the case with the emergency physician. Apparently the patient was found to be asystolic. The patient was started CPR. He was having agonal breathing. He was intubated and placed on a mechanical ventilator. There was return of spontaneous circulation at the longterm. The patient was intubated and the patient was brought in to the emergency department intubated on a mechanical ventilator. He is an assist-control mode rate of 12 with tidal volume of 450 and FiO2 of 50% with a PEEP of 5. CT angiogram was done and the patient was found to have no evidence of any pulmonary embolism. He has a moderate-sized left-sided pleural effusion and small right-sided pleural effusion along with some background emphysema. The patient has a A. fib rhythm based on the EKG. He is running bradycardic at this point in time when his heart rate in the mid 40s. He is currently on propofol running at 20 g per KG per minute is well sedated. His most recent blood pressure is 145/60 and he is on no pressors for now. His white cell count is at 9.3 with hemoglobin 11.3. Platelet count is 127. Post intubation blood gas showed a pH of 7.38 with a pCO2 of 39 and pO2 of more than 400. D-dimer is at 1.94 and this is a coagulation profile is within normal limits. His lactic acid level is at 4.6. Potassium level is at 4.9. Liver function tests are within normal limits. First set of troponin 0.04. UA is abnormal. ProBNP level is 1640. Review of Systems ROS unobtainable: due to endotracheal tube Past Medical History Past Medical History: Atrial Fibrillation, Coronary Artery Disease (CAD), Cancer, Heart Failure, COPD, Hyperlipidemia, Hypertension, Myocardial Infarction ([place]), Renal Disease Additional Past Medical History / Comment(s): R lung cancer with wedge resection-no chemo or radiation, severe pulmonary HTN, CKD stage III, anemia,hiatal hernia, constipation/benign polyp, bradycardia. Last Myocardial Infarction Date:: 2002 History of Any Multi-Drug Resistant Organisms: MRSA Date of last positivie culture/infection: 02/10/20 MDRO Source:: Buttock Past Surgical History: Appendectomy, Coronary Bypass/CABG, Heart C atheterization, Orthopedic Surgery Additional Past Surgical History / Comment(s): 2002 CABG 3 vessel, cardiac angioplasty, R lung wedge resection, R hip closed reduction/ORIF, EGD, colonoscopies/polypectgomies. Past Anesthesia/Blood Transfusion Reactions: No Reported Reaction Additional Past Anesthesia/Blood Transfusion Reaction / Comment(s): CLAUSTERPHOBIA. Pt has received blood in past without reaction. Past Psychological History: No Psychological Hx Reported Smoking Status: Former smoker Past Alcohol Use History: None Reported Past Drug Use History: None Reported - Past Family History Father Family Medical History: Cancer Additional Family Medical History / Comment(s): of pancreatic cancer Mother Family Medical History: Diabetes Mellitus Additional Family Medical History / Comment(s): AT AGE 90 WAS IN PRETTY GOOD HEALTH FROM OLD AGE Brother(s) Family Medical History: Diabetes Mellitus Additional Family Medical History / Comment(s): 2 BROTHERS HAVE DIABETES Medications and Allergies Home Medications Medication Instructions Recorded Confirmed Type Tiotropium 18 Mcg/Puff [Spiriva] 1 cap INHALATION RT-DAILY@0800 07/13/13 02/25/20 History Nitroglycerin Sl Tabs [Nitrostat] 0.4 mg SL Q5M PRN 03/19/16 02/25/20 History Ferrous Sulfate [Iron] 325 mg PO TID@0800,1200,1700 11/09/17 02/25/20 History Isosorbide Mononitrate [Isosorbide 30 mg PO BID@0800,1700 11/09/17 02/25/20 History Mononitrate ER] Ipratropium-Albuterol Nebulize 3 ml INHALATION RT-QID PRN 03/22/18 02/25/20 History [Duoneb 0.5 mg-3 mg/3 ml Soln] Apixaban [Eliquis] 2.5 mg PO BID@0800,1700 09/27/18 02/25/20 History Budesonide-Formot 160-4.5 Mcg 2 puff INHALATION RT-BID@0800,1700 09/25/19 02/25/20 History [Symbicort 160-4.5 Mcg Inhaler] Folic Acid 1 mg PO DAILY@1700 09/25/19 02/25/20 History Ascorbic Acid [Vitamin C] 250 mg PO DAILY@1700 02/09/20 02/25/20 History Multivitamins, Thera [Multivitamin 1 tab PO DAILY@1700 02/09/20 02/25/20 History (formulary)] cycloSPORINE 0.05% OPHTH SOLN 1 drop BOTH EYES Q12H 02/09/20 02/25/20 History [Restasis] Thiamine [Vitamin B-1] 100 mg PO DAILY@1200 tab 02/14/20 02/25/20 Rx Acetaminophen Tab [Tylenol] 650 mg PO Q6H PRN 02/15/20 02/25/20 History Ensure Clear 120 ml PO TID@0800,1200,1700 02/15/20 02/25/20 History Magnesium Hydroxide [Milk of 7,200 mg PO Q48H PRN 02/15/20 02/25/20 History Magnesia Concentrate] Magnesium Oxide [Mag-Ox] 400 mg PO BID@0800,1700 02/15/20 02/25/20 History Na Phos,M-B/Na Phos,Di-Ba [Fleet 133 ml RECTAL DAILY PRN 02/15/20 02/25/20 History Adult] Pantoprazole [Protonix] 40 mg PO DAILY@0600 02/15/20 02/25/20 History Simvastatin [Zocor] 20 mg PO HS@2100 02/15/20 02/25/20 History Tamsulosin HCl [Flomax] 0.4 mg PO BID@0800,1700 02/15/20 02/25/20 History Theophylline 24 Hour [Fabrice-24] 200 mg PO DAILY@0800 02/15/20 02/25/20 History bisacodyL [Bisacodyl] 10 mg RECTAL DAILY PRN 02/15/20 02/25/20 History Linezolid 600 mg PO Q12H 02/25/20 02/25/20 History Nystatin 100,000 Unit/ml Susp 5 ml PO QID 02/25/20 02/25/20 History [Mycostatin Oral Susp] bisacodyL [Dulcolax] 10 mg RECTAL DAILY PRN 02/25/20 02/25/20 History Allergies Allergy/AdvReac Type Severity Reaction Status Date / Time No Known Allergies Allergy Verified 02/25/20 14:46 Physical Exam Vitals: Vital Signs Temp Pulse Resp BP Pulse Ox 02/25/20 14:05 59 L 17 145/60 100 02/25/20 14:00 52 L 14 145/60 100 02/25/20 13:55 61 12 02/25/20 13:40 123/66 02/25/20 13:35 55 L 13 123/66 100 02/25/20 13:30 59 L 15 141/58 100 02/25/20 13:25 48 L 17 130/66 100 02/25/20 13:20 55 L 17 126/65 100 02/25/20 13:15 57 L 15 132/55 100 02/25/20 13:10 47 L 18 124/61 100 02/25/20 13:05 58 L 15 135/56 100 02/25/20 13:00 51 L 11 L 129/56 100 02/25/20 12:55 48 L 16 134/68 95 02/25/20 12:50 53 L 12 133/59 89 L 02/25/20 12:45 54 L 14 138/67 100 02/25/20 12:40 50 L 13 131/63 97 02/25/20 12:35 52 L 14 120/53 95 02/25/20 12:30 45 L 12 84/60 100 02/25/20 12:15 124/57 02/25/20 12:10 53 L 15 129/58 100 02/25/20 12:05 57 L 13 110/49 99 02/25/20 12:01 18 02/25/20 12:00 64 15 106/57 99 02/25/20 11:38 97.8 F 65 18 127/72 100 Intake and Output 02/24/20 02/25/20 02/25/20 22:59 06:59 14:59 Other: Weight 80.739 kg The patient is unresponsive, comfortable active distress currently on sedated. He is currently on propofol. Orogastric and orotracheal tube in place. Head exam was generally normal. There was no scleral icterus or corneal arcus. Mucous membranes were moist. Neck was supple and without jugular venous distension, thyromegaly, or carotid bruits. Carotids were easily palpable bilaterally. There was no adenopathy. Lungs sounds are diminished in the patient is equal and symmetrical breath sounds bilaterally slightly diminished on the left Heart sounds are irregular consistent with atrial fibrillation. The patient is relatively bradycardic. No significant murmurs appreciated. Abdominal exam revealed normal bowel sounds. The abdomen was soft, non-tender, and without masses, organomegaly, or appreciable enlargement of the abdominal aorta. Examination of the extremities revealed easily palpable radial, femoral and pedal pulses. There was no cyanosis, clubbing and the patient has extensive edema in lower extremity is bilaterally along with diminished pulses in the feet. Extremities are essentially warm at this point in time. Neurologically the patient is coughing. The patient has equal and symmetrical. Was around 4 mm in size and sluggishly reactive to light. Motor function cannot be assessed. Sensory function cannot be assessed. He has a positive cough and gag. Results - Laboratory Findings CBC and BMP: 02/25/20 11:45 02/25/20 11:45 ABG ABG pH 7.38 (7.35-7.45) 02/25/20 13:03 ABG pCO2 39 mmHg (35-45) 02/25/20 13:03 ABG pO2 >400 mmHg (83-108) H 02/25/20 13:03 ABG O2 Saturation 100.0 % (94-97) H 02/25/20 13:03 PT/INR, D-dimer PT 13.4 sec (9.0-12.0) H 02/25/20 11:45 INR 1.3 (<1.2) H 02/25/20 11:45 D-Dimer 1.94 mg/L FEU (<0.60) H 02/25/20 11:45 Abnormal lab findings: Abnormal Labs 02/25/20 02/25/20 02/25/20 11:45 11:45 11:45 RBC 3.61 L Hgb 11.3 L Hct 35.8 L RDW 16.0 H Plt Count 127 L PT 13.4 H INR 1.3 H D-Dimer 1.94 H ABG pO2 ABG O2 Saturation Sodium 136 L Chloride 108 H Carbon Dioxide 20 L Glucose 129 H POC Glucose (mg/dL) Plasma Lactic Acid Savage Calcium 8.2 L Creatine Kinase 41 L Troponin I Albumin 2.7 L Urine Protein Urine Blood Ur Leukocyte Esterase Urine RBC Urine WBC Urine WBC Clumps Urine Bacteria 02/25/20 02/25/2002/24/20 11:45 11:46 11:49 RBC Hgb Hct RDW Plt Count PT INR D-Dimer ABG pO2 ABG O2 Saturation Sodium Chloride Carbon Dioxide Glucose POC Glucose (mg/dL) 167 H Plasma Lactic Acid Savage 4.6 H* Calcium Creatine Kinase Troponin I 0.043 H* Albumin Urine Protein Urine Blood Ur Leukocyte Esterase Urine RBC Urine WBC Urine WBC Clumps Urine Bacteria 02/25/20 02/25/20 11:57 13:03 RBC Hgb Hct RDW Plt Count PT INR D-Dimer ABG pO2 >400 H ABG O2 Saturation 100.0 H Sodium Chloride Carbon Dioxide Glucose POC Glucose (mg/dL) Plasma Lactic Acid Savage Calcium Creatine Kinase Troponin I Albumin Urine Protein 2+ H Urine Blood Moderate H Ur Leukocyte Esterase Small H Urine RBC 65 H Urine WBC >182 H Urine WBC Clumps Moderate H Urine Bacteria Occasional H - Diagnostic Findings Chest x-ray: image reviewed CT scan - chest: image reviewed Assessment and Plan Plan: 1 acute cardiac arrest, likely in asystole, the patient received CPR, unknown down time and patient was resuscitated and received CPR and following that there was return of his continuous circulation. The patient was intubated and longterm and the patient was brought into the hospital. Currently is h emodynamically stable on no pressors, intubated on mechanical ventilator. First set of cardiac enzyme with troponin is negative. The EKG showing chronic atrial fibrillation with a relatively bradycardic response. CT angiographic showed no evidence of any pulmonary embolism. There is a moderate-sized left- sided pleural effusion which probably is chronic along with background emphysema. 2 acute hypoxic respiratory failure secondary to above 3 known history of severe bradycardia (related to Chronic Atrial fibrillation with) , no need for pacemaker placement per [employer] during his most recent hospital stay 4 Multiple sacral decubitus with severe pain with surrounding cellulitis, culture is growing MRSA. 5 chronic stage III kidney injury/disease 6 history of nonsustained ventricular tachycardia 7 CHF/diastolic heart failure 8 COPD 9 hypertension 10 hyperlipidemia 11 coronary artery disease with previous myocardial infarction and the patient has undergone previous coronary artery bypass surgery 12 history of lung cancer with a previous right lung lobectomy/resection 13 claustrophobia 14 longterm resident and the patient arrived to us from [facility]. 15 sacral wound with infection with MRSA and apparently the patient was taken Zyvox on outpatient basis to monitor the wound is healed for now and there is a stage I ulceration of his coccyx on examination. 16 chronic lower extremity edema Plan Continue ventilator support and wean down the FiO2 slowly to maintain a saturation above 90%. The FiO2 can be dropped down to 60% for now. Monitor the cardiac rhythm and the patient is in atrial fibrillation. We'll consult with cardiology. No need for pressors for now Continue propofol for now at 20 g per KG per minute. Triple-lumen catheter was established IV fluids with normal state rate of 75 mL an hour Rivera catheter has been inserted CAT scan of the brain and the neck showed no acute abnormalities Resume all medication including his anticoagulants Cardiology consultation Transferred to the intensive care unit Condition is critical and will continue to follow.
--- NOTE | 2020-02-25 15:24 | XR ---
EXAMINATION TYPE: XR chest 1V confirm line [facility] DATE OF EXAM: 02/25/2020 COMPARISON: Earlier same day. HISTORY: Line placement. TECHNIQUE: Single frontal view of the chest is obtained. FINDINGS: There is interval placement of a left central venous catheter with tip overlying the cauda l SVC. The endotracheal tube remains in place. There is unchanged diffuse mild hazy and streaky opaci ties, greater on the right. No significant pleural effusion or pneumothorax. Stable cardiomediastinal silhouette and cardiothoracic postsurgical changes. The osseous structures are otherwise intact. IMPRESSION: As above.
[2020-02-25] MEDS: SODIUM CHLORIDE 0.9% 1,000 ML IV SCH (15:35)
[2020-02-25] MEDS: IPRATROPIUM-ALBUTEROL 3 ML NEB INHALATION SCH ×2 (16:09→20:06)
[2020-02-25 16:18] LABS: Glucose,Whole Blood 142 mg/dL (75-99)
[2020-02-25] MEDS: TAMSULOSIN 0.4 MG CAP.ER.24H PO SCH (16:30)
[2020-02-25] MEDS: PIPERACILLIN-TAZOBACTAM 3.375 GM in SODIUM CHLORIDE 0.9% 100 ML IVPB SCH (16:46)
[2020-02-25] MEDS ORDERED: APIXABAN 2.5 MG TABLET PO SCH (17:00)
--- NOTE | 2020-02-25 19:04 | P.PCN ---
Date of Procedure: 02/25/20 Preoperative Diagnosis: Cardiac arrest Postoperative Diagnosis: cardiac arrest Procedure(s) Performed: Central line insertion Anesthesia: local Surgeon: Rebecca Naik Estimated Blood Loss (ml): 0 Pathology: other Condition: critical Disposition: ICU Operative Findings: Indication: Hemodynamic monitoring/Intravenous access. A time-out was completed verifying correct patient, procedure, site, positioning, and implant(s) or special equipment if applicable. The patient was placed in a dependent position appropriate for central line placement based on the vein to be cannulated. The patients left chest was prepped and draped in sterile fashion. 1% Lidocaine was used to anesthetize the surrounding skin area. A triple lumen 9F Cordis catheter was introduced into the left subclavian vein using Seldinger technique. The catheter was threaded smoothly over the guide wire and appropriate blood return was obtained. Each lumen of the catheter was evacuated of air and flushed with sterile saline. The catheter was then sutured in place to the skin and a sterile dressing applied. Perfusion to the extremity distal to the point of catheter insertion was checked and found to be adequate. The patient tolerated the procedure well and there were no complications.
[2020-02-25] MEDS: ENOXAPARIN 100 MG/ML SYRINGE SQ SCH (22:00)
[2020-02-25] MEDS: CHLORHEXIDINE GLUCONATE 15 ML CUP MUCOUS MEM SCH (22:00)
[2020-02-25] MEDS: ATORVASTATIN 10 MG TAB PO SCH (22:01)
[2020-02-26] MEDS: SODIUM CHLORIDE 0.9% 1,000 ML IV SCH ×3 (00:15→09:07)
[2020-02-26] MEDS: PIPERACILLIN-TAZOBACTAM 3.375 GM in SODIUM CHLORIDE 0.9% 100 ML IVPB SCH ×3 (00:30→15:36)
[2020-02-26 00:41] LABS: Glucose,Whole Blood 111 mg/dL (75-99)
[2020-02-26 04:14] LABS: HGB 10.1 gm/dL (13.0-17.5); Hypochromasia Slight; MCH 32.4 pg (25.0-35.0); MCHC 32.6 g/dL (31.0-37.0); MCV 99.5 fL (80.0-100.0); Macrocytosis Slight; Mean Platelet Volume 9.1; RBC 3.11 m/uL (4.30-5.90); RDW 15.5 % (11.5-15.5); WBC 6.5 k/uL (3.8-10.6)
[2020-02-26 04:41] LABS: Platelet Count 72 k/uL (150-450)
[2020-02-26 04:53] LABS: Calcium 7.7 mg/dL (8.4-10.2); Magnesium 2.1 mg/dL (1.6-2.3); Potassium 4.4 mmol/L (3.5-5.1)
[2020-02-26 05:31] LABS: ABG Base Excess -1.4 mmol/L; ABG HCO3 24 mmol/L (21-25); ABG PCO2 39 mmHg (35-45); ABG PH 7.39 (7.35-7.45); ABG PO2 191 mmHg (83-108); ABG TCO2 25 mmol/L (19-24); Allen Test Performed? Yes
[2020-02-26] MEDS: PANTOPRAZOLE 40 MG TABLET PO SCH (06:08)
[2020-02-26 06:54] LABS: Glucose,Whole Blood 71 mg/dL (75-99)
[2020-02-26] MEDS: IPRATROPIUM-ALBUTEROL 3 ML NEB INHALATION SCH ×4 (07:02→19:58)
[2020-02-26] MEDS: TAMSULOSIN 0.4 MG CAP.ER.24H PO SCH ×2 (08:10→16:44)
[2020-02-26] MEDS ORDERED: FUROSEMIDE 10 MG/ML 4 ML VIAL IV STA (08:38)
[2020-02-26] MEDS: CHLORHEXIDINE GLUCONATE 15 ML CUP MUCOUS MEM SCH ×2 (09:06→21:47)
--- NOTE | 2020-02-26 09:33 | XR ---
EXAMINATION TYPE: XR chest 1V portable DATE OF EXAM: 02/26/2020 COMPARISON: 02/25/2020 HISTORY: Central line placement TECHNIQUE: Single frontal view of the chest is obtained. FINDINGS: Left-sided central line seen with the tip overlying the SVC. ET tube stable. Bilateral low er lobe infiltrate and pleural effusion. Cardiomegaly and underlying COPD noted. Postoperative change . No sizable pneumothorax. Arthropathy of the shoulders. IMPRESSION: 1. COPD with bilateral lower lobe infiltrate and small effusion.
--- NOTE | 2020-02-26 11:03 | P.PN ---
Subjective Progress Note Date: 02/26/20 Principal diagnosis: cardiac arrest 78-year-old male patient was brought into the emergency department after he was [facility]. The patient was found to be unresponsive. The EMS sheet is not available. I discussed the case with the emergency physician. Apparently the patient was found to be asystolic. The patient was started CPR. He was having agonal breathing. He was intubated and placed on a mechanical ventilator. There was return of spontaneous circulation at the jail. The patient was intubated and the patient was brought in to the emergency department intubated on a mechanical ventilator. He is an assist-control mode rate of 12 with tidal volume of 450 and FiO2 of 50% with a PEEP of 5. CT angiogram was done and the patient was found to have no evidence of any pulmonary embolism. He has a moderate-sized left-sided pleural effusion and small right-sided pleural effusion along with some background emphysema. The patient has a A. fib rhythm based on the EKG. He is running bradycardic at this point in time when his heart rate in the mid 40s. He is currently on propofol running at 20 g per KG per minute is well sedated. His most recent blood pressure is 145/60 and he is on no pressors for now. His w elgin cell count is at 9.3 with hemoglobin 11.3. Platelet count is 127. Post intubation blood gas showed a pH of 7.38 with a pCO2 of 39 and pO2 of more than 400. D-dimer is at 1.94 and this is a coagulation profile is within normal limits. His lactic acid level is at 4.6. Potassium level is at 4.9. Liver function tests are within normal limits. First set of troponin 0.04. UA is abnormal. ProBNP level is 1640. On 02/26/2020 patient seen in follow-up in intensive care unit. He remains se dated, and intubated on mechanical ventilator with assist control mode of ventilation with a rate of 12, tidal volumes of 450, FiO2 is 40% and PEEP of 5, displaced blood gases were reviewed showing pO2 191 with pCO2 of 39 pH of 7.39. Currently patient is on 0.9 normal saline at a rate of 135 ML per hour, Diprivan is a 20 mics per kilo per minute, no vasoactive infusions. Today's chest x-ray shows bilateral pleural effusions, bilateral lower lobe infiltrates, on a background of COPD. Patient is in A. fib on the monitor with a rate of 92 BPM, hemodynamically stable, appears very sedated, in no generally swollen, but the significant lower extremity edema. His labs have been reviewed showing white blood cell count of 6.5, hemoglobin of 10.1, sodium of 137, potassium is 4.4, chloride is 110, CO2 is 23, BUN 17 creatinine is 1.19, lactic acid came down to 1.9, he was adequately fluid resuscitated, and he is on Zosyn for empiric antibiotics coverage, after sedation was held, patient started to wake up, and following simple commands, we will proceed with the spontaneous breathing trials with pressure-support and CPAP. Microbiology culture reviewed, urine and sputum cultures have been negative. Objective - Vital Signs Vital signs: Vital Signs Temp 97.5 F L 02/26/20 08:00 Pulse 92 02/26/20 10:00 Resp 21 02/26/20 10:00 BP 120/88 02/26/20 10:00 Pulse Ox 96 02/26/20 10:00 Intake & Output 02/25/20 02/26/20 02/26/20 18:59 06:59 18:59 Intake Total 082.559 9599 504.173 Output Total 240 440 395 Balance 630.386 1666 109.173 Weight 95.9 kg 96 kg Intake: IV 415 1530 410 Piperacillin-Tazobactam 3 100 100 75 .375 gm In Sodium Chloride 0.9% 100 ml @ 25 mls/hr IVPB Q8HR [facility] Rx# :[id number] Sodium Chloride 0.9% 1, 315 1430 335 000 ml @ 50 mls/hr IV . Q20H [facility] Rx#:[id number] Intake, IV Titration 20.346 94.173 Amount propofoL 1,000 mg In 13.079 Empty Bag 1 bag @ Titrate IV .Q0M [facility] Rx#: [id number] propofoL 1,000 mg In 7.267 94.173 Empty Bag 1 bag @ Titrate IV .Q0M [facility] Rx#: [id number] Output: Urine 240 440 395 Other: Voiding Method Indwelling Catheter Indwelling Catheter - Exam GENERAL EXAM: Sedated, intubated, 79-year-old white male, on assist-control mode of ventilation, with FiO2 of 40% comfortable in no apparent distress. HEAD: Normocephalic/atraumatic. EYES: Normal reaction of pupils, equal size. Conjunctiva pink, sclera white. NOSE: Clear with pink turbinates. THROAT: No erythema or exudates. NECK: No masses, no JVD, no thyroid enlargement, no adenopathy. CHEST: No chest wall deformity. Symmetrical expansion. LUNGS: Equal air entry with no crackles, wheeze, rhonchi or dullness. CVS: Irregular rate and rhythm, normal S1 and S2, no gallops, no murmurs, no rubs ABDOMEN: Soft, nontender. No hepatosplenomegaly, normal bowel sounds, no guarding or rigidity. EXTREMITIES: No clubbing, 2 +plus lower extremity edema, no cyanosis, 2+ pulses and upper and lower extremities. MUSCULOSKELETAL: Muscle strength and tone normal. SPINE: No scoliosis or deformity SKIN: No rashes CENTRAL NERVOUS SYSTEM: Sedated, intubated. No focal deficits, tone is normal in all 4 extremities. - Labs CBC & Chem 7: 02/26/20 03:50 02/26/20 03:50 Labs: Abnormal Lab Results - Last 24 Hours (Table) 02/25/20 02/25/20 02/25/20 Range/Units 11:45 11:45 11:45 RBC 3.61 L (4.30-5.90) m/uL Hgb 11.3 L (13.0-17.5) gm/dL Hct 35.8 L (39.0-53.0) % RDW 16.0 H (11.5-15.5) % Plt Count 127 L (150-450) k/uL PT 13.4 H (9.0-12.0) sec INR 1.3 H (<1.2) D-Dimer 1.94 H (<0.60) mg/L FEU ABG pO2 (83-108) mmHg ABG Total CO2 (19-24) mmol/L ABG O2 Saturation (94-97) % Sodium 136 L (137-145) mmol/L Chloride 108 H (98-107) mmol/L Carbon Dioxide 20 L (22-30) mmol/L Glucose 129 H (74-99) mg/dL POC Glucose (mg/dL) (75-99) mg/dL Plasma Lactic Acid Savage (0.7-2.0) mmol/L Calcium 8.2 L (8.4-10.2) mg/dL Creatine Kinase 41 L (55-170) U/L Troponin I (0.000-0.034) ng/mL Albumin 2.7 L (3.5-5.0) g/dL Urine Protein (Negative) Urine Blood (Negative) Ur Leukocyte Esterase (Negative) Urine RBC (0-5) /hpf Urine WBC (0-5) /hpf Urine WBC Clumps (None) /hpf Urine Bacteria (None) /hpf 02/25/20 02/25/20 02/25/20 Range/Units 11:45 11:46 11:49 RBC (4.30-5.90) m/uL Hgb (13.0-17.5) gm/dL Hct (39.0-53.0) % RDW (11.5-15.5) % Plt Count (150-450) k/uL PT (9.0-12.0) sec INR (<1.2) D-Dimer (<0.60) mg/L FEU ABG pO2 (83-108) mmHg ABG Total CO2 (19-24) mmol/L ABG O2 Saturation (94-97) % Sodium (137-145) mmol/L Chloride (98-107) mmol/L Carbon Dioxide (22-30) mmol/L Glucose (74-99) mg/dL POC Glucose (mg/dL) 167 H (75-99) mg/dL Plasma Lactic Acid Savage 4.6 H* (0.7-2.0) mmol/L Calcium (8.4-10.2) mg/dL Creatine Kinase (55-170) U/L Troponin I 0.043 H* (0.000-0.034) ng/mL Albumin (3.5-5.0) g/dL Urine Protein (Negative) Urine Blood (Negative) Ur Leukocyte Esterase (Negative) Urine RBC (0-5) /hpf Urine WBC (0-5) /hpf Urine WBC Clumps (None) /hpf Urine Bacteria (None) /hpf 02/25/20 02/25/20 02/25/20 Range/Units 11:57 13:03 15:44 RBC (4.30-5.90) m/uL Hgb (13.0-17.5) gm/dL Hct (39.0-53.0) % RDW (11.5-15.5) % Plt Count (150-450) k/uL PT (9.0-12.0) sec INR (<1.2) D-Dimer (<0.60) mg/L FEU ABG pO2 >400 H (83-108) mmHg ABG Total CO2 (19-24) mmol/L ABG O2 Saturation 100.0 H (94-97) % Sodium (137-145) mmol/L Chloride (98-107) mmol/L Carbon Dioxide (22-30) mmol/L Glucose (74-99) mg/dL POC Glucose (mg/dL) (75-99) mg/dL Plasma Lactic Acid Savage 2.4 H* (0.7-2.0) mmol/L Calcium (8.4-10.2) mg/dL Creatine Kinase (55-170) U/L Troponin I (0.000-0.034) ng/mL Albumin (3.5-5.0) g/dL Urine Protein 2+ H (Negative) Urine Blood Moderate H (Negative) Ur Leukocyte Esterase Small H (Negative) Urine RBC 65 H (0-5) /hpf Urine WBC >182 H (0-5) /hpf Urine WBC Clumps Moderate H (None) /hpf Urine Bacteria Occasional H (None) /hpf 02/25/20 02/26/20 02/26/20 Range/Units 16:16 00:39 03:50 RBC (4.30-5.90) m/uL Hgb (13.0-17.5) gm/dL Hct (39.0-53.0) % RDW (11.5-15.5) % Plt Count (150-450) k/uL PT (9.0-12.0) sec INR (<1.2) D-Dimer (<0.60) mg/L FEU ABG pO2 (83-108) mmHg ABG Total CO2 (19-24) mmol/L ABG O2 Saturation (94-97) % Sodium (137-145) mmol/L Chloride 110 H (98-107) mmol/L Carbon Dioxide (22-30) mmol/L Glucose (74-99) mg/dL POC Glucose (mg/dL) 142 H 111 H (75-99) mg/dL Plasma Lactic Acid Savage (0.7-2.0) mmol/L Calcium 7.7 L (8.4-10.2) mg/dL Creatine Kinase (55-170) U/L Troponin I (0.000-0.034) ng/mL Albumin (3.5-5.0) g/dL Urine Protein (Negative) Urine Blood (Negative) Ur Leukocyte Esterase (Negative) Urine RBC (0-5) /hpf Urine WBC (0-5) /hpf Urine WBC Clumps (None) /hpf Urine Bacteria (None) /hpf 02/26/20 02/26/20 02/26/20 Range/Units 03:50 05:28 06:53 RBC 3.11 L (4.30-5.90) m/uL Hgb 10.1 L (13.0-17.5) gm/dL Hct 31.0 L (39.0-53.0) % RDW (11.5-15.5) % Plt Count 72 L (150-450) k/uL PT (9.0-12.0) sec INR (<1.2) D-Dimer (<0.60) mg/L FEU ABG pO2 191 H (83-108) mmHg ABG Total CO2 25 H (19-24) mmol/L ABG O2 Saturation 100.0 H (94-97) % Sodium (137-145) mmol/L Chloride (98-107) mmol/L Carbon Dioxide (22-30) mmol/L Glucose (74-99) mg/dL POC Glucose (mg/dL) 71 L (75-99) mg/dL Plasma Lactic Acid Savage (0.7-2.0) mmol/L Calcium (8.4-10.2) mg/dL Creatine Kinase (55-170) U/L Troponin I (0.000-0.034) ng/mL Albumin (3.5-5.0) g/dL Urine Protein (Negative) Urine Blood (Negative) Ur Leukocyte Esterase (Negative) Urine RBC (0-5) /hpf Urine WBC (0-5) /hpf Urine WBC Clumps (None) /hpf Urine Bacteria (None) /hpf Microbiology - Last 24 Hours (Table) 02/25/20 13:16 Gram Stain - Preliminary Sputum Sputum Culture - Preliminary 02/25/20 11:57 Urine Culture - Preliminary Urine,Voided Assessment and Plan Plan: Assessment: 1 acute cardiac arrest, likely in asystole, the patient received CPR, unknown down time and patient was resuscitated and received CPR and following that there was return of his continuous circulation. The patient was intubated and jail and the patient was brought into the hospital. Currently is hemodynamically stable on no pressors, intubated on mechanical ventilator. First set of cardiac enzyme with troponin is negative. The EKG showing chronic atrial fibrillation with a relatively bradycardic response. CT angiographic showed no evidence of any pulmonary embolism. There is a moderate-sized left- sided pleural effusion which probably is chronic along with background emphysema. On 02/26/2020 patient is intubated and sedated on mechanical ventilator, hemodynamically stable, no arrhythmias overnight, remains in A. fib with a controlled rate, vital signs have been stable, we'll proceed with spontaneous awakening is pending his breathing trials today 2 acute hypoxic respiratory failure secondary to above 3 known history of severe bradycardia (related to Chronic Atrial fibrillation with) , no need for pacemaker placement per Palaeontologist during his most recent hospital stay 4 Multiple sacral decubitus with severe pain with surrounding cellulitis, culture is growing MRSA. 5 chronic stage III kidney injury/disease 6 history of nonsustained ventricular tachycardia 7 CHF/diastolic heart failure 8 COPD 9 hypertension 10 hyperlipidemia 11 coronary artery disease with previous myocardial infarction and the patient has undergone previous coronary artery bypass surgery 12 history of lung cancer with a previous right lung lobectomy/resection 13 claustrophobia 14 jail resident and the patient arrived to us from [facility]. 15 sacral wound with infection with MRSA and apparently the patient was taken Zyvox on outpatient basis to monitor the wound is healed for now and there is a stage I ulceration of his coccyx on examination. 16 chronic lower extremity edema Plan: Sedation, was patient is fully awake proceed with the pressure support trials for 30-45 minutes, blood gas, and the senna weaning parameters, and now will attempt to extubate the patient today, we'll give 01 dose of Lasix, IV fluids down to KVO, continue with empiric Zosyn, ultrasound negative thus far. No vasoactive drips, patient was adequately fluid resuscitated, we'll contact IV fluids to KVO. Continue GI and DVT prophylaxis, will continue breathing treatments, continue home medications, cardiology evaluation is pending. Continue to closely monitor in the intensive care unit I performed a history & physical examination of the patient and discussed their management with my nurse practitioner, Marie Mahmood. I reviewed the nurse practitioner's note and agree with the documented findings and plan of care. Lung sounds are positive for diminished breath sounds. The findings and the impression was discussed with the patient. I attest to the documentation by the nurse practitioner. Time with Patient: Greater than 30
[2020-02-26] MEDS: cycloSPORINE 0.05% OPHTH 0.4 ML DROPERETTE BOTH EYES SCH (11:25)
[2020-02-26] MEDS: FERROUS SULFATE 325 MG TAB PO SCH ×2 (11:26→16:43)
[2020-02-26] MEDS: THIAMINE 100 MG TAB PO SCH (11:27)
[2020-02-26 11:32] LABS: Glucose,Whole Blood 86 mg/dL (75-99)
[2020-02-26 11:42] LABS: ABG HCO3 22 mmol/L (21-25); ABG PCO2 36 mmHg (35-45); ABG PO2 178 mmHg (83-108); ABG TCO2 23 mmol/L (19-24); Allen Test Performed? Yes
[2020-02-26] MEDS: ISOSORBIDE MONONITRATE ER 30 MG TAB.ER.24H PO SCH (16:43)
[2020-02-26] MEDS: ASCORBIC ACID 500 MG TAB PO SCH (16:43)
[2020-02-26] MEDS: FOLIC ACID 1 MG TAB PO SCH (16:43)
[2020-02-26] MEDS: MULTIVITAMINS, THERA 1 EACH TAB PO SCH (16:43)
[2020-02-26 18:18] LABS: Glucose,Whole Blood 82 mg/dL (75-99)
[2020-02-26] MEDS: SYMBICORT 160-4.5 MCG INHALER INHALATION SCH (19:59)
--- NOTE | 2020-02-26 20:47 | CE ---
CARDIAC ELECTROPHYSIOLOGY REPORT Khanh Mahmood is a 79-year-old male patient. He presented to the hospital with cardiac arrest from a [facility]. He was found to be unresponsive. CPR was initiated and he was intubated and had return of circulation. His initial ECG showed a heart rate of 59 beats per minute. Cardiac arrest occurred secondary to acute respiratory failure. There was no evidence for any significant bradycardia to account for this arrest. He was admitted to the ICU for asystolic cardiac arrest with agonal breathing secondary to acute respiratory failure. CT angiography did not reveal any evidence for pulmonary embolism. He has bilateral pleural effusions, left greater than right, and underlying emphysema. He has underlying atrial fibrillation and his heart rate runs in the 50s. He was intubated when we saw him. No evidence for any bradycardia. Underlying atrial fibrillation, rate controlled. PAST MEDICAL HISTORY: Atrial fibrillation, coronary artery disease, history of hyperkalemia-induced bradycardia. He remains sedated, intubated on a mechanical ventilator. He is being started on Zosyn for empiric antibiotic coverage and he is undergoing spontaneous breathing trials with pressure support and CPAP. LABS: Labs are reviewed. Hemoglobin 10.1. His sodium was 136, potassium 4.9, BUN 16, creatinine 1.18, GFR normal. Troponin 0.043. LFTs normal. PHYSICAL EXAMINATION: On examination, his heart rate is in the 50s. Blood pressure 141/48 and 128/43 mmHg. Breath sounds are reduced bilaterally. Abdomen is soft. Heart sounds with soft systolic murmur. IMPRESSION: 1. Acute respiratory failure with asystolic cardiac arrest with immediate recovery, normal potassium. 2. Atrial fibrillation, rate controlled. SUGGEST: Continue with ICU monitoring and ICU management and extubation. Avoid drugs that would increase his potassium since he has a history of hyperkalemia-induced bradycardia. However, this episode was precipitated by an acute respiratory failure, not hyperkalemia. This was not a bradyarrhythmic event. Permanent pacemaker not indicated. MMODL / IJN: [id number] /
[2020-02-26] MEDS: ATORVASTATIN 10 MG TAB PO SCH (21:35)
[2020-02-26] MEDS: ENOXAPARIN 100 MG/ML SYRINGE SQ SCH (21:47)
[2020-02-27 01:04] LABS: Glucose,Whole Blood 86 mg/dL (75-99)
[2020-02-27] MEDS: cycloSPORINE 0.05% OPHTH 0.4 ML DROPERETTE BOTH EYES SCH ×3 (01:58→22:24)
[2020-02-27] MEDS: PIPERACILLIN-TAZOBACTAM 3.375 GM in SODIUM CHLORIDE 0.9% 100 ML IVPB SCH ×3 (01:59→17:18)
[2020-02-27 05:08] LABS: ABG Base Excess -3.5 mmol/L; ABG HCO3 22 mmol/L (21-25); ABG PCO2 38 mmHg (35-45); ABG PH 7.37 (7.35-7.45); ABG PO2 182 mmHg (83-108); ABG TCO2 23 mmol/L (19-24); Allen Test Performed? Yes
[2020-02-27] MEDS: PANTOPRAZOLE 40 MG TABLET PO SCH (05:14)
[2020-02-27 05:17] LABS: HCT 39.2 % (39.0-53.0); Hypochromasia Slight; MCH 30.4 pg (25.0-35.0); MCHC 30.6 g/dL (31.0-37.0); MCV 99.5 fL (80.0-100.0); Macrocytosis Slight; Mean Platelet Volume 10.6; RBC 3.94 m/uL (4.30-5.90); RDW 15.9 % (11.5-15.5); WBC 9.4 k/uL (3.8-10.6)
[2020-02-27 05:20] LABS: Calcium 8.1 mg/dL (8.4-10.2); Magnesium 2.1 mg/dL (1.6-2.3); Potassium 4.5 mmol/L (3.5-5.1)
[2020-02-27 05:28] LABS: Platelet Count 65 k/uL (150-450)
[2020-02-27 06:41] LABS: Glucose,Whole Blood 75 mg/dL (75-99)
--- NOTE | 2020-02-27 08:48 | XR ---
EXAMINATION TYPE: XR chest 1V portable DATE OF EXAM: 02/27/2020 COMPARISON: 02/26/2020 HISTORY: Shortness of breath TECHNIQUE: Single frontal view of the chest is obtained. FINDINGS: ET tube is seen and is a left-sided PICC line. Heart is stable in size and there is postop erative change with bilateral consolidation and pleural effusion. Interstitial pattern seen. No pneum othorax. IMPRESSION: 1. Stable pleural-parenchymal changes with bilateral infiltrate and pleural effusion.
[2020-02-27] MEDS: SYMBICORT 160-4.5 MCG INHALER INHALATION SCH ×2 (09:26→18:37)
[2020-02-27] MEDS: IPRATROPIUM-ALBUTEROL 3 ML NEB INHALATION SCH ×4 (09:26→18:37)
[2020-02-27] MEDS: TAMSULOSIN 0.4 MG CAP.ER.24H PO SCH ×2 (09:54→17:11)
[2020-02-27] MEDS: THEOPHYLLINE 24 HOUR 200 MG CAP.ER.24H PO SCH (09:54)
[2020-02-27] MEDS: ISOSORBIDE MONONITRATE ER 30 MG TAB.ER.24H PO SCH ×2 (10:02→17:11)
[2020-02-27] MEDS: FERROUS SULFATE 325 MG TAB PO SCH ×3 (10:02→17:11)
[2020-02-27] MEDS: CHLORHEXIDINE GLUCONATE 15 ML CUP MUCOUS MEM SCH (10:02)
[2020-02-27] MEDS: SODIUM CHLORIDE 0.9% 1,000 ML IV SCH (10:03)
[2020-02-27] MEDS: FUROSEMIDE 10 MG/ML 4 ML VIAL IV SCH ×3 (10:47→22:28)
[2020-02-27 10:59] LABS: Hemoglobin A1C 4.9 % (4.0-6.0)
--- NOTE | 2020-02-27 11:22 | P.HPIM ---
History of Present Illness This is a pleasant 79 years old male with multiple medical problems as below. He was recently in this hospital twice, he was discharged on severe bradycardia secondary to hyperkalemia during which time he did not need pacemak er and cotton presser and cleared him for discharge while avoiding any potassium sparing drugs like Collins inhibitors, Aldactone or potassium supplements. He was discharged in a stable condition back to his half-way where he is finishing his rehab treatment. This is patient is intubated so it could not provide information and it was obtained from the records and staff. It looks like the patient became unresponsive found was an half-way and CPR was initiated and eventually patient got intubated and transferred to emergency room by EMS, he was already intubated and currently he is on mechanical ventilation. There was a concern for a systolic and cardiac arrest. When I saw the patient in the ICU he was still intubated however he was some more awake and moving his arms and open his eyes spontaneously but then he goes back to sleep. He is kept sedated and CLOSELY by the pulmonary/critical care team. His heart rate now is bradycardic at 50s and cotton presser team were consulted Review of Systems N/a Past Medical History Past Medical History: Atrial Fibrillation, Coronary Artery Disease (CAD), Cancer, Heart Failure, COPD, Hyperlipidemia, Hypertension, Myocardial Infarction (MT), Renal Disease Additional Past Medical History / Comment(s): R lung cancer with wedge resection-no chemo or radiation, severe pulmonary HTN, CKD stage III, anemia,hiatal hernia, constipation/benign polyp, bradycardia. First degree Heart Block 01/2020. Last Myocardial Infarction Date:: 2002 History of Any Multi-Drug Resistant Organisms: MRSA Date of last positivie culture/infection: 02/10/20 MDRO Source:: Buttock Past Surgical History: Appendectomy, Coronary Bypass/CABG, Heart Catheterization, Orthopedic Surgery Additional Past Surgical History / Comment(s): 2002 CABG 3 vessel, cardiac angioplasty, R lung wedge resection, R hip closed reduction/ORIF, EGD, colonoscopies/polypectgomies. Past Anesthesia/Blood Transfusion Reactions: No Reported Reaction Additional Past Anesthesia/Blood Transfusion Reaction / Comment(s): CLAUSTERPHOBIA. Pt has received blood in past without reaction. Past Psychological History: No Psychological Hx Reported Additional Psychological History / Comment(s): Pt resides at [facility] for rehab. Smoking Status: Former smoker Past Alcohol Use History: None Reported Additional Past Alcohol Use History / Comment(s): started smoking at age 18 (195 9), quit 2001 smoked 1 ppd. Past Drug Use History: None Reported - Past Family History Father Family Medical History: Cancer Additional Family Medical History / Comment(s): of pancreatic cancer Mother Family Medical History: Diabetes Mellitus Additional Family Medical History / Comment(s): AT AGE 90 WAS IN PRETTY GOOD HEALTH FROM OLD AGE Brother(s) Family Medical History: Diabetes Mellitus Additional Family Medical History / Comment(s): 2 BROTHERS HAVE DIABETES Medications and Allergies Home Medications Medication Instructions Recorded Confirmed Type Tiotropium 18 Mcg/Puff [Spiriva] 1 cap INHALATION RT-DAILY@0800 07/13/13 02/25/20 History Nitroglycerin Sl Tabs [Nitrostat] 0.4 mg SL Q5M PRN 03/19/16 02/25/20 History Ferrous Sulfate [Iron] 325 mg PO TID@0800,1200,1700 11/09/17 02/25/20 History Isosorbide Mononitrate [Isosorbide 30 mg PO BID@0800,1700 11/09/17 02/25/20 History Mononitrate ER] Ipratropium-Albuterol Nebulize 3 ml INHALATION RT-QID PRN 03/22/18 02/25/20 History [Duoneb 0.5 mg-3 mg/3 ml Soln] Apixaban [Eliquis] 2.5 mg PO BID@0800,1700 09/27/18 02/25/20 History Budesonide-Formot 160-4.5 Mcg 2 puff INHALATION RT-BID@0800,1700 09/25/19 02/25/20 History [Symbicort 160-4.5 Mcg Inhaler] Folic Acid 1 mg PO DAILY@169909/25/19 02/25/20 History Ascorbic Acid [Vitamin C] 250 mg PO DAILY@169902/09/20 02/25/20 History Multivitamins, Thera [Multivitamin 1 tab PO DAILY@0 02/09/20 02/25/20 History (formulary)] cycloSPORINE 0.05% OPHTH SOLN 1 drop BOTH EYES Q12H 02/09/20 02/25/20 History [Restasis] Thiamine [Vitamin B-1] 100 mg PO DAILY@1200 tab 02/14/20 02/25/20 Rx Acetaminophen Tab [Tylenol] 650 mg PO Q6H PRN 02/15/20 02/25/20 History Ensure Clear 120 ml PO TID@0800,1200,1700 02/15/20 02/25/20 History Magnesium Hydroxide [Milk of 7,200 mg PO Q48H PRN 02/15/20 02/25/20 History Magnesia Concentrate] Magnesium Oxide [Mag-Ox] 400 mg PO BID@0800,1700 02/15/20 02/25/20 History Na Phos,M-B/Na Phos,Di-Ba [Fleet 133 ml RECTAL DAILY PRN 02/15/20 02/25/20 History Adult] Pantoprazole [Protonix] 40 mg PO DAILY@0600 02/15/20 02/25/20 History Simvastatin [Zocor] 20 mg PO HS@2100 02/15/20 02/25/20 History Tamsulosin HCl [Flomax] 0.4 mg PO BID@0800,1700 02/15/20 02/25/20 History Theophylline 24 Hour [Fabrice-24] 200 mg PO DAILY@0800 02/15/20 02/25/20 History bisacodyL [Bisacodyl] 10 mg RECTAL DAILY PRN 02/15/20 02/25/20 History Linezolid 600 mg PO Q12H 02/25/20 02/25/20 History Nystatin 100,000 Unit/ml Susp 5 ml PO QID 02/25/20 02/25/20 History [Mycostatin Oral Susp] bisacodyL [Dulcolax] 10 mg RECTAL DAILY PRN 02/25/20 02/25/20 History Allergies Allergy/AdvReac Type Severity Reaction Status Date / Time No Known Allergies Allergy Verified 02/25/20 14:46 Physical Exam Vitals: Vital Signs Temp Pulse Resp BP Pulse Ox 02/26/20 10:00 92 21 120/88 96 02/26/20 09:00 88 17 122/70 100 02/26/20 08:00 97.5 F L 96 12 121/59 99 02/26/20 07:10 90 02/26/20 07:03 98 02/26/20 07:00 83 18 119/87 100 02/26/20 06:00 86 12 113/59 100 02/26/20 05:00 72 11 L 118/60 100 02/26/20 04:00 80 11 L 102/51 100 02/26/20 03:00 72 14 124/68 100 02/26/20 02:00 84 14 99/55 99 02/26/20 01:00 78 17 111/65 100 02/26/20 00:00 98.4 F 79 17 131/68 100 02/25/20 23:15 67 18 131/68 100 02/25/20 23:00 72 21 119/73 100 02/25/20 22:00 75 14 117/56 100 02/25/20 21:00 76 14 114/64 100 02/25/20 20:19 82 02/25/20 20:07 77 02/25/20 20:00 98.2 F 75 16 107/63 100 02/25/20 19:00 74 12 115/55 100 02/25/20 18:00 83 13 138/66 100 02/25/20 17:00 76 11 L 136/80 100 02/25/20 16:20 96.4 F L 84 24 144/80 100 02/25/20 16:10 145/60 02/25/20 16:05 145/60 02/25/20 16:00 73 24 145/60 100 02/25/20 15:55 79 12 100 02/25/20 15:50 87 12 145/60 100 02/25/20 15:45 58 L 10 L 145/60 100 02/25/20 15:40 46 L 15 145/60 100 02/25/20 15:35 80 10 L 145/60 100 02/25/20 15:30 59 L 14 145/60 100 02/25/20 15:25 71 11 L 145/60 100 02/25/20 15:20 79 12 145/60 100 02/25/20 15:15 49 L 16 145/60 100 02/25/20 15:10 55 L 15 145/60 100 02/25/20 15:05 11 L 145/60 100 02/25/20 15:00 49 L 18 145/60 100 02/25/20 14:55 44 L 24 145/60 100 02/25/20 14:50 67 10 L 145/60 100 02/25/20 14:45 63 13 145/60 100 02/25/20 14:40 55 L 16 145/60 100 02/25/20 14:35 50 L 13 145/60 100 02/25/20 14:30 48 L 12 145/60 100 02/25/20 14:25 53 L 13 145/60 100 02/25/20 14:20 57 L 15 145/60 100 02/25/20 14:15 56 L 13 145/60 100 02/25/20 14:10 56 L 15 145/60 100 02/25/20 14:05 59 L 17 145/60 100 02/25/20 14:00 52 L 14 145/60 100 02/25/20 13:55 61 12 02/25/20 13:40 123/66 02/25/20 13:35 55 L 13 123/66 100 02/25/20 13:30 59 L 15 141/58 100 02/25/20 13:25 48 L 17 130/66 100 02/25/20 13:20 55 L 17 126/65 100 02/25/20 13:15 57 L 15 132/55 100 02/25/20 13:10 47 L 18 124/61 100 02/25/20 13:05 58 L 15 135/56 100 02/25/20 13:00 51 L 11 L 129/56 100 02/25/20 12:55 48 L 16 134/68 95 02/25/20 12:50 53 L 12 133/59 89 L 02/25/20 12:45 54 L 14 138/67 100 02/25/20 12:40 50 L 13 131/63 97 02/25/20 12:35 52 L 14 120/53 95 02/25/20 12:30 45 L 12 84/60 100 Intake and Output 02/25/20 02/26/20 02/26/20 22:59 06:59 14:59 Intake Total 824.945 9240 504.173 Output Total 370 310 395 Balance 447.717 830 109.173 Intake: IV 805 1140 410 Piperacillin-Tazobactam 3 100 100 75 .375 gm In Sodium Chloride 0.9% 100 ml @ 25 mls/hr IVPB Q8HR [facility] Rx# :[id number] Sodium Chloride 0.9% 1, 705 1040 335 000 ml @ 50 mls/hr IV . Q20H [facility] Rx#:[id number] Intake, IV Titration 12.717 94.173 Amount propofoL 1,000 mg In 5.45 Empty Bag 1 bag @ Titrate IV .Q0M [facility] Rx#: [id number] propofoL 1,000 mg In 7.267 94.173 Empty Bag 1 bag @ Titrate IV .Q0M [facility] Rx#: [id number] Output: Urine 370 310 395 Other: Voiding Method Indwelling Catheter Indwelling Catheter Weight 95.9 kg 96 kg GENERAL: The patient is intubated and sedated HEENT: Pupils are round and equally reacting to light. EOMI. No scleral icterus. No conjunctival pallor. Normocephalic, atraumatic. No pharyngeal erythema. No thyromegaly. CARDIOVASCULAR: S1 and S2 present. No murmurs, rubs, or gallops. PULMONARY: Chest is clear to auscultation, no wheezing or crackles. ABDOMEN: Soft, nontender, nondistended, normoactive bowel sounds. No palpable organomegaly. MUSCULOSKELETAL: No joint swelling or deformity. EXTREMITIES: No cyanosis, clubbing, or pedal edema. NEUROLOGICAL: Gross neurological examination did not reveal any focal deficits. SKIN: No rashes. no petechiae. Results CBC & Chem 7: 02/27/20 04:27 02/27/20 04:27 Labs: Abnormal Lab Results - Last 24 Hours (Table) 02/25/20 02/25/20 02/25/20 Range/Units 11:45 11:45 11:45 RBC (4.30-5.90) m/uL Hgb (13.0-17.5) gm/dL Hct (39.0-53.0) % Plt Count (150-450) k/uL PT 13.4 H (9.0-12.0) sec INR 1.3 H (<1.2) D-Dimer 1.94 H (<0.60) mg/L FEU ABG pO2 (83-108) mmHg ABG Total CO2 (19-24) mmol/L ABG O2 Saturation (94-97) % Sodium 136 L (137-145) mmol/L Chloride 108 H (98-107) mmol/L Carbon Dioxide 20 L (22-30) mmol/L Glucose 129 H (74-99) mg/dL POC Glucose (mg/dL) (75-99) mg/dL Plasma Lactic Acid Savage (0.7-2.0) mmol/L Calcium 8.2 L (8.4-10.2) mg/dL Creatine Kinase 41 L (55-170) U/L Troponin I 0.043 H* (0.000-0.034) ng/mL Albumin 2.7 L (3.5-5.0) g/dL Urine Protein (Negative) Urine Blood (Negative) Ur Leukocyte Esterase (Negative) Urine RBC (0-5) /hpf Urine WBC (0-5) /hpf Urine WBC Clumps (None) /hpf Urine Bacteria (None) /hpf 02/25/20 02/25/20 02/25/20 Range/Units 11:46 11:57 13:03 RBC (4.30-5.90) m/uL Hgb (13.0-17.5) gm/dL Hct (39.0-53.0) % Plt Count (150-450) k/uL PT (9.0-12.0) sec INR (<1.2) D-Dimer (<0.60) mg/L FEU ABG pO2 >400 H (83-108) mmHg ABG Total CO2 (19-24) mmol/L ABG O2 Saturation 100.0 H (94-97) % Sodium (137-145) mmol/L Chloride (98-107) mmol/L Carbon Dioxide (22-30) mmol/L Glucose (74-99) mg/dL POC Glucose (mg/dL) (75-99) mg/dL Plasma Lactic Acid Savage 4.6 H* (0.7-2.0) mmol/L Calcium (8.4-10.2) mg/dL Creatine Kinase (55-170) U/L Troponin I (0.000-0.034) ng/mL Albumin (3.5-5.0) g/dL Urine Protein 2+ H (Negative) Urine Blood Moderate H (Negative) Ur Leukocyte Esterase Small H (Negative) Urine RBC 65 H (0-5) /hpf Urine WBC >182 H (0-5) /hpf Urine WBC Clumps Moderate H (None) /hpf Urine Bacteria Occasional H (None) /hpf 02/25/20 02/25/2020 Range/Units 15:44 16:16 00:39 RBC (4.30-5.90) m/uL Hgb (13.0-17.5) gm/dL Hct (39.0-53.0) % Plt Count (150-450) k/uL PT (9.0-12.0) sec INR (<1.2) D-Dimer (<0.60) mg/L FEU ABG pO2 (83-108) mmHg ABG Total CO2 (19-24) mmol/L ABG O2 Saturation (94-97) % Sodium (137-145) mmol/L Chloride (98-107) mmol/L Carbon Dioxide (22-30) mmol/L Glucose (74-99) mg/dL POC Glucose (mg/dL) 142 H 111 H (75-99) mg/dL Plasma Lactic Acid Savage 2.4 H* (0.7-2.0) mmol/L Calcium (8.4-10.2) mg/dL Creatine Kinase (55-170) U/L Troponin I (0.000-0.034) ng/mL Albumin (3.5-5.0) g/dL Urine Protein (Negative) Urine Blood (Negative) Ur Leukocyte Esterase (Negative) Urine RBC (0-5) /hpf Urine WBC (0-5) /hpf Urine WBC Clumps (None) /hpf Urine Bacteria (None) /hpf 02/26/20 02/26/20 02/26/20 Range/Units 03:50 03:50 05:28 RBC 3.11 L (4.30-5.90) m/uL Hgb 10.1 L (13.0-17.5) gm/dL Hct 31.0 L (39.0-53.0) % Plt Count 72 L (150-450) k/uL PT (9.0-12.0) sec INR (<1.2) D-Dimer (<0.60) mg/L FEU ABG pO2 191 H (83-108) mmHg ABG Total CO2 25 H (19-24) mmol/L ABG O2 Saturation 100.0 H (94-97) % Sodium (137-145) mmol/L Chloride 110 H (98-107) mmol/L Carbon Dioxide (22-30) mmol/L Glucose (74-99) mg/dL POC Glucose (mg/dL) (75-99) mg/dL Plasma Lactic Acid Savage (0.7-2.0) mmol/L Calcium 7.7 L (8.4-10.2) mg/dL Creatine Kinase (55-170) U/L Troponin I (0.000-0.034) ng/mL Albumin (3.5-5.0) g/dL Urine Protein (Negative) Urine Blood (Negative) Ur Leukocyte Esterase (Negative) Urine RBC (0-5) /hpf Urine WBC (0-5) /hpf Urine WBC Clumps (None) /hpf Urine Bacteria (None) /hpf 02/26/20 02/26/20 Range/Units 06:53 11:40 RBC (4.30-5.90) m/uL Hgb (13.0-17.5) gm/dL Hct (39.0-53.0) % Plt Count (150-450) k/uL PT (9.0-12.0) sec INR (<1.2) D-Dimer (<0.60) mg/L FEU ABG pO2 178 H (83-108) mmHg ABG Total CO2 (19-24) mmol/L ABG O2 Saturation 100.0 H (94-97) % Sodium (137-145) mmol/L Chloride (98-107) mmol/L Carbon Dioxide (22-30) mmol/L Glucose (74-99) mg/dL POC Glucose (mg/dL) 71 L (75-99) mg/dL Plasma Lactic Acid Savage (0.7-2.0) mmol/L Calcium (8.4-10.2) mg/dL Creatine Kinase (55-170) U/L Troponin I (0.000-0.034) ng/mL Albumin (3.5-5.0) g/dL Urine Protein (Negative) Urine Blood (Negative) Ur Leukocyte Esterase (Negative) Urine RBC (0-5) /hpf Urine WBC (0-5) /hpf Urine WBC Clumps (None) /hpf Urine Bacteria (None) /hpf Microbiology - Last 24 Hours (Table) 02/25/20 13:16 Gram Stain - Preliminary Sputum Sputum Culture - Preliminary Gram Neg Bacilli 02/25/20 11:57 Urine Culture - Preliminary Urine,Voided Thrombosis Risk Factor Assmnt - Choose All That Apply Any of the Below Risk Factors Present?: Yes Each Factor Represents 1 point: Medical pt on bed rest, Swollen legs (current) Each Risk Factor Represents 2 Points: Age 61-74 years, Central venous access, Patient confined to bed Thrombosis Risk Factor Assessment Total Risk Factor Score: 8 Thrombosis Risk Factor Assessment Level: High Risk Assessment and Plan Assessment: -Status post cardiac arrest and CPR with immediate recovery. He is currently bradycardic and cardiology team is consulted -Acute hypoxic respiratory failure needing intubation and mechanical ventilation -Recent history of severe bradycardia (related to Chronic Atrial fibrillation with) secondary to hyperkalemia, no need for pacemaker placement per [employer], however patient should avoid medication like lisinopril, spironolactone and potassium supplementation. Patient was discharged to rehab last week and a stable condition. Potassium was normal. -Multiple sacral decubitus with severe pain with surrounding cellulitis, culture is growing MRSA. -Hyperkalemia , improved potassium to normal -Acute on chronic kidney injury -History of nonsustained ventricular tachycardia -History of Rectal pain and fecal impaction -chronic Gait dysfunction -Atrial fibrillation with bradycardia -Generalized weaknessin -Anemia, normocytic possibly multifactorial -history of CAD -CHF with chronic diastolic dysfunction -History of COPD, asthma -Hypertension -Hyperlipidemia -history of myocardial infarction -History of right lung cancer with wedge resection -History of severe pulmonary hypertension -Chronic kidney disease stage III --history of coronary artery disease, CABG -Claustrophobia -Remote history of nicotine dependence -Acute renal failure
[2020-02-27 12:45] LABS: Glucose,Whole Blood 89 mg/dL (75-99)
[2020-02-27 12:50] LABS: ABG Base Excess -3.7 mmol/L; ABG HCO3 22 mmol/L (21-25); ABG PCO2 38 mmHg (35-45); ABG PH 7.37 (7.35-7.45); ABG PO2 182 mmHg (83-108); ABG TCO2 23 mmol/L (19-24); Allen Test Performed? Yes
--- NOTE | 2020-02-27 13:20 | P.PN ---
Subjective Progress Note Date: 02/27/20 Principal diagnosis: Acute hypoxic respiratory failure secondary to cardiac arrest/asystole. 78-year-old male patient was brought into the emergency department after [facility]. The patient was found to be unresponsive. The EMS sheet is not available. I discussed the case with the emergency physician. Apparently the patient was found to be asystolic. The patient was started CPR. He was having agonal breathing. He was intubated and placed on a mechanical ventilator. There was return of spontaneous circulation [facility] the [facility]. The patient was intubated and the patient was brought in to the emergency department intubated on a mechanical ventilator. He is an assist-control mode rate of 12 with tidal volume of 450 and FiO2 of 50% with a PEEP of 5. CT angiogram was done and the patient was found to have no evidence of any pulmonary embolism. He has a moderate-sized left-sided pleural effusion and small right-sided pleural effusion along with some background emphysema. The patient has a A. fib rhythm based on the EKG. He is running bradycardic at this point in time when his heart rate in the mid 40s. He is currently on propofol running at 20 g per KG per minute is well sedated. His most recent blood pressure is 145/60 and he is on no pressors for now. His white cell count is at 9.3 with hemoglobin 11.3. Platelet count is 127. Post intubation blood gas showed a pH of 7.38 with a pCO2 of 39 and pO2 of more than 400. D-dimer is at 1.94 and this is a coagulation profile is within normal limits. His lactic acid level is at 4.6. Potassium level is at 4.9. Liver function tests are within normal limits. First set of troponin 0.04. UA is abnormal. ProBNP level is 1640. On 02/26/2020 patient seen in follow-up in intensive care unit. He remains sedated, and intubated on mechanical ventilator with assist control mode of ventilation with a rate of 12, tidal volumes of 450, FiO2 is 40% and PEEP of 5, displaced blood gases were reviewed showing pO2 191 with pCO2 of 39 pH of 7.39. Currently patient is on 0.9 normal saline at a rate of 135 ML per hour, Diprivan is a 20 mics per kilo per minute, no vasoactive infusions. Today's chest x-ray shows bilateral pleural effusions, bilateral lower lobe infiltrates, on a background of COPD. Patient is in A. fib on the monitor with a rate of 92 BPM, hemodynamically stable, appears very sedated, in no generally swollen, but the significant lower extremity edema. His labs have been reviewed showing white blood cell count of 6.5, hemoglobin of 10.1, sodium of 137, potassium is 4.4, chloride is 110, CO2 is 23, BUN 17 creatinine is 1.19, lactic acid came down to 1.9, he was adequately fluid resuscitated, and he is on Zosyn for empiric an tibiotics coverage, after sedation was held, patient started to wake up, and following simple commands, we will proceed with the spontaneous breathing trials with pressure-support and CPAP. Microbiology culture reviewed, urine and sputum cultures have been negative. Patient was reevaluated today on 02/27/20, patient remains in the ICU, intubated and mechanically ventilated. He is now on assist control rate of 12 tidal volume is 450 FiO2 is 40% and PEEP is 5. His ABG showed a pO2 of 182 pCO2 of 38 pH of 7.37. Patient is on propofol at 20 mcg/kg/m, not requiring any pressors. Patient is noted to be bradycardic, he has a atrial fibrillation/flutter rhythm, rate is 44/m. Patient is arousable, follows simple instructions, hence I plan to give the patient a trial of pressure support of 8 and CPAP, and if tolerated I will pursue further weaning and possibly extubate the patient today. In the meantime I have stopped his propofol, cardiology is evaluating the patient, no plans had been made whether the patient will require a pacemaker placement, undecided yet about the pacemaker although I believe the patient would benefit from a pacemaker placement considering his presentation and his profound bradycardia times not to mention the patient had cardiac arrest, and it was asystole. Patient tested negative for covid 19. His sputum came back positive for Citrobacter, sensitive to most antibiotics. Patient is empirically on Zosyn which seems to be appropriate at this time. Objective - Vital Signs Vital signs: Vital Signs Temp 95.8 F L 02/27/20 12:00 Pulse 43 L 02/27/20 13:00 Resp 15 02/27/20 13:00 BP 123/51 12/15/20 13:00 Pulse Ox 100 02/27/20 13:00 Intake & Output 02/26/20 02/27/20 02/27/20 18:59 06:59 18:59 Intake Total 954.173 652.88 370.68 Output Total 865 360 480 Balance 89.173 292.88 -109.32 Weight 96.5 kg Intake: IV 860 650 275 Piperacillin-Tazobactam 3 200 100 100 .375 gm In Sodium Chloride 0.9% 100 ml @ 25 mls/hr IVPB Q8HR [facility] Rx# :[id number] Sodium Chloride 0.9% 1, 660 550 175 000 ml @ 50 mls/hr IV . Q20H [facility] Rx#:[id number] Intake, IV Titration 94.173 2.88 95.68 Amount propofoL 1,000 mg In 94.173 2.88 95.68 Empty Bag 1 bag @ Titrate IV .Q0M [facility] Rx#: [id number] Output: Urine 865 360 480 Other: Voiding Method Indwelling Catheter Indwelling Catheter - Exam GENERAL EXAM: Sedated, intubated, 79-year-old white male, on assist-control mode of ventilation HEAD: Normocephalic/atraumatic. ENT: PERRLA, EOMI, neck, dry mucous membranes. CHEST: No chest wall deformity. Symmetrical expansion. LUNGS: Equal air entry with no crackles, wheeze, rhonchi or dullness. CVS: Irregular rate and rhythm, normal S1 and S2, no gallops, no murmurs, no rubs ABDOMEN: Soft, nontender. No hepatosplenomegaly, normal bowel sounds, no guarding or rigidity. EXTREMITIES: No clubbing, 2 +plus lower extremity +3 edema, no cyanosis, 2+ pulses and upper and lower extremities. MUSCULOSKELETAL: Muscle strength and tone normal. SPINE: No scoliosis or deformity SKIN: No rashes CENTRAL NERVOUS SYSTEM: Arousable, follows simple instructions. Psychiatric could not be assessed patient has a blunt affect, and seems to follow instructions well while intubated and mechanically ventilated - Labs CBC & Chem 7: 02/27/20 04:27 02/27/20 04:27 Labs: Abnormal Lab Results - Last 24 Hours (Table) 02/27/20 02/27/20 02/27/20 Range/Units 04:27 04:27 05:04 RBC 3.94 L (4.30-5.90) m/uL Hgb 12.0 L (13.0-17.5) gm/dL MCHC 30.6 L (31.0-37.0) g/dL RDW 15.9 H (11.5-15.5) % Plt Count 65 L (150-450) k/uL ABG pO2 182 H (83-108) mmHg ABG O2 Saturation 100.0 H (94-97) % Chloride 113 H (98-107) mmol/L Carbon Dioxide 17 L (22-30) mmol/L Creatinine 1.49 H (0.66-1.25) mg/dL Calcium 8.1 L (8.4-10.2) mg/dL 02/27/20 Range/Units 12:50 RBC (4.30-5.90) m/uL Hgb (13.0-17.5) gm/dL MCHC (31.0-37.0) g/dL RDW (11.5-15.5) % Plt Count (150-450) k/uL ABG pO2 182 H (83-108) mmHg ABG O2 Saturation 100.0 H (94-97) % Chloride (98-107) mmol/L Carbon Dioxide (22-30) mmol/L Creatinine (0.66-1.25) mg/dL Calcium (8.4-10.2) mg/dL Microbiology - Last 24 Hours (Table) 02/25/20 13:16 Gram Stain - Final Sputum Sputum Culture - Final Citrobacter freundii 02/25/20 11:57 Urine Culture - Preliminary Urine,Voided Yeast species Assessment and Plan Assessment: 1 acute cardiac arrest, likely in asystole, 2 acute hypoxic respiratory failure secondary to above 3 known history of severe bradycardia (related to Chronic Atrial fibrillation with) cardiology is undecided about pacemaker implantation at this point yet. 4 Multiple sacral decubitus with severe pain with surrounding cellulitis, culture is growing MRSA. 5 chronic stage III kidney injury/disease 6 history of nonsustained ventricular tachycardia 7 CHF/diastolic heart failure 8 COPD 9 hypertension 10 hyperlipidemia 11 coronary artery disease with previous myocardial infarction and the patient has undergone previous coronary artery bypass surgery 12 history of lung cancer with a previous right lung lobectomy/resection 13 claustrophobia 14 penitentiary resident and the patient [facility]. 15 sacral wound with infection with MRSA and apparently the patient was taken Zyvox on outpatient basis to monitor the wound is healed for now and there is a stage I ulceration of his coccyx on examination. 16 chronic lower extremity edema Recommendation: Patient will be given a weaning trial today. Discontinue propofol. Switch patient to pressure support and CPAP mode of mechanical ventilation and if tolerated consider extubating the patient today. Continue antibiotics including Zosyn. Continue nutritional support. Continue GI and DVT prophylaxis. Resume home meds. Continue diuretics /Lasix. Continue updrafts. Continue Protonix. Continue cardiac meds that he was previously on including indoor. Will give the patient a trial of weaning and possibly extubate today. Remains critically ill, critical care time is 35 minutes Time with Patient: Greater than 30
[2020-02-27] MEDS ORDERED: VANCOMYCIN IV PER PHARMACY 1 EACH MISC MISCELLANE PRN (13:28)
[2020-02-27] MEDS: THIAMINE 100 MG TAB PO SCH (13:31)
[2020-02-27] MEDS: VANCOMYCIN 1,750 MG in SODIUM CHLORIDE 0.9% 500 ML 500 ML IVPB SCH (14:18)
--- NOTE | 2020-02-27 14:56 | P.PN ---
Subjective 79 years old male with multiple medical problems as below. He was recently in this hospital twice, he was discharged on severe bradycardia secondary to hyperkalemia during which time he did not need pacemaker and industrial maintenance repairer and cleared him for discharge while avoiding any potassium sparing drugs like Collins inhibitors, Aldactone or potassium supplements. He was discharged in a stable condition back to his [facility] where he is finishing his rehab treatment. This is patient is intubated so it could not provide information and it was obtained from the records and staff. It looks like the patient became unresponsive found was an [facility] and CPR was initiated and eventually patient got intubated and transferred to emergency room by EMS, he was already intubated and currently he is on mechanical ventilation. There was a concern for a systolic and cardiac arrest. When I saw the patient in the ICU he was still intubated however he was some more awake and moving his arms and open his eyes spontaneously but then he goes back to sleep. He is kept sedated and CLOSELY by the pulmonary/critical care team. His heart rate now is bradycardic at 50s and industrial maintenance repairer team were consulted 02/27/2020 Patient is extubated patient is presently on his Lanoxin does have swelling of the right thumb along with redness local is of temperature and there is a localized swelling just distal to the elbow appears to be previous IV line site. We will obtain ultrasound of that area patient will be started on vancomycin had history of MRSA in the past patient does have stage II decubitus ulceration which although doesn't appear to be infected. Patient is presently in atrial fibrillation with heart rate of 44. Cardiology evaluated the patient then not recommending any pacemaker placement at this time. Patient initially presented with profound bradycardia and the patient had a cardiac arrest at that time. Patient is negative for code 19. Constitutional: Denied any fatigue denied any fever. Cardio vascular: denied any chest pain, palpitations Gastrointestinal denied any nausea vomiting Pulmonary: Denied any shortness of breath cough Neurologic denied any new focal deficits All inpatient medications were reviewed and appropriate changes in these medications as dictated in the interval history and assessment and plan. Objective - Vital Signs Vital signs: Vital Signs Temp 95.8 F L 02/27/20 12:00 Pulse 42 L 02/27/20 14:00 Resp 40 H 02/27/20 14:00 BP 131/53 02/27/20 14:00 Pulse Ox 100 02/27/20 14:00 Intake & Output 02/26/20 02/27/20 02/27/20 18:59 06:59 18:59 Intake Total 954.173 652.88 470.68 Output Total 865 360 705 Balance 89.173 292.88 -234.32 Weight 96.5 kg Intake: IV 860 650 375 Piperacillin-Tazobactam 3 200 100 100 .375 gm In Sodium Chloride 0.9% 100 ml @ 25 mls/hr IVPB Q8HR [facility] Rx# :[id number] Sodium Chloride 0.9% 1, 660 550 275 000 ml @ 50 mls/hr IV . Q20H [facility] Rx#:[id number] Intake, IV Titration 94.173 2.88 95.68 Amount propofoL 1,000 mg In 94.173 2.88 95.68 Empty Bag 1 bag @ Titrate IV .Q0M [facility] Rx#: [id number] Output: Urine 865 360 705 Other: Voiding Method Indwelling Catheter Indwelling Catheter - Exam PHYSICAL EXAMINATION: GENERAL: The patient is alert and oriented x3, not in any acute distress. Well developed, well nourished. HEENT: Pupils are round and equally reacting to light. EOMI. No scleral icterus. No conjunctival pallor. Normocephalic, atraumatic. No pharyngeal erythema. No thyromegaly. CARDIOVASCULAR: S1 and S2 present. No murmurs, rubs, or gallops. PULMONARY: Chest is clear to auscultation, no wheezing or crackles. ABDOMEN: Soft, nontender, nondistended, normoactive bowel sounds. No palpable organomegaly. MUSCULOSKELETAL: No joint swelling or deformity. EXTREMITIES: No cyanosis, clubbing, or pedal edema. NEUROLOGICAL: Gross neurological examination did not reveal any focal deficits. SKIN: Is to sacral decubitus ulcers mentionable and redness in the right upper extremity swelling with local is of temperature. - Labs CBC & Chem 7: 02/27/20 04:27 02/27/20 04:27 Labs: Abnormal Lab Results - Last 24 Hours (Table) 02/27/20 02/27/20 02/27/20 Range/Units 04:27 04:27 05:04 RBC 3.94 L (4.30-5.90) m/uL Hgb 12.0 L (13.0-17.5) gm/dL MCHC 30.6 L (31.0-37.0) g/dL RDW 15.9 H (11.5-15.5) % Plt Count 65 L (150-450) k/uL ABG pO2 182 H (83-108) mmHg ABG O2 Saturation 100.0 H (94-97) % Chloride 113 H (98-107) mmol/L Carbon Dioxide 17 L (22-30) mmol/L Creatinine 1.49 H (0.66-1.25) mg/dL Calcium 8.1 L (8.4-10.2) mg/dL 02/27/20 Range/Units 12:50 RBC (4.30-5.90) m/uL Hgb (13.0-17.5) gm/dL MCHC (31.0-37.0) g/dL RDW (11.5-15.5) % Plt Count (150-450) k/uL ABG pO2 182 H (83-108) mmHg ABG O2 Saturation 100.0 H (94-97) % Chloride (98-107) mmol/L Carbon Dioxide (22-30) mmol/L Creatinine (0.66-1.25) mg/dL Calcium (8.4-10.2) mg/dL Microbiology - Last 24 Hours (Table) 02/25/20 13:16 Gram Stain - Final Sputum Sputum Culture - Final Citrobacter freundii 02/25/20 11:57 Urine Culture - Preliminary Urine,Voided Yeast species Assessment and Plan Plan: -Status post cardiac arrest and CPR with immediate recovery. He is currently bradycardic and cardiology evaluated the patient for possible pacemaker placement, not requiring any pacemaker placement but the recommending avoidance of medications that increase potassium. Patient apparently had an asystole. -Swelling of the right upper extremity we'll rule out any DVT or superficial thrombosis. Patient will be started on vancomycin for cellulitis of the right upper extremity. Patient's creatinine is 1.4 by need to closely monitor kidney function with vancomycin. -Acute hypoxic respiratory failure needing intubation and mechanical ventilation secondary to chronic pulmonary arrest patient is presently extubated patient is extubated on 02/27/2020 -Recent history of severe bradycardia (related to Chronic Atrial fibrillation with) secondary to hyperkalemia, no need for pacemaker placement per [employer] Debeader, however patient should avoid medication like lisinopril, spironolactone and potassium supplementation. Patient was discharged to rehab last week and a stable condition. Potassium was normal. -Acute on chronic kidney injury : Acute renal failure secondary to prerenal azotemia from heart failure -History of nonsustained ventricular tachycardia -Atrial fibrillation with bradycardia, patient is presently on Lovenox if kidney function continued to worse when it to this continue Lovenox possibly switch him to heparin IV -Generalized weaknessin -Anemia, normocytic possibly multifactorial -history of CAD -CHF with chronic diastolic dysfunction with acute exacerbation patient is on IV Lasix at this time -History of COPD, asthma -Hypertension -Hyperlipidemia -Coronary artery disease with history of CABG in the past -History of right lung cancer with wedge resection severe pulmonary hypertension -Chronic kidney disease stage III: Etiology is not known
--- NOTE | 2020-02-27 15:16 | US ---
EXAMINATION TYPE: US venous doppler duplex UE RT DATE OF EXAM: 02/27/2020 COMPARISON: NONE CLINICAL HISTORY: R/O DVT. Ecchymosis to right anteromedial arm with skin tears. Patient has ProPad a t right subclavian area for defibrillation purposes, along with cardiac leads at right subclavian ar ea, thus limited US vein assessment at this level. SIDE PERFORMED: right Right Arm: Negative for DVT. Negative for SVT as was only able to see Right Basilic Vein. Edema Chann els are noted posterior to ecchymosis at medial right arm. IMPRESSION: Grayscale, color doppler, spectral doppler imaging performed of the deep veins of the upper extremiti es. There is normal flow, compressibility and vascular waveforms.
[2020-02-27 16:57] LABS: Glucose,Whole Blood 83 mg/dL (75-99)
[2020-02-27] MEDS: MULTIVITAMINS, THERA 1 EACH TAB PO SCH (17:11)
[2020-02-27] MEDS: ASCORBIC ACID 500 MG TAB PO SCH (17:11)
[2020-02-27] MEDS: FOLIC ACID 1 MG TAB PO SCH (17:11)
[2020-02-27] MEDS ORDERED: ATROPINE SULFATE 0.1 MG/ML 10ML SYRINGE IV STA (21:10)
[2020-02-27 22:21] LABS: Albumin 2.2 g/dL (3.5-5.0); Potassium 3.5 mmol/L (3.5-5.1); Total Bilirubin 1.1 mg/dL (0.2-1.3); Total Protein 5.4 g/dL (6.3-8.2)
[2020-02-27] MEDS: ENOXAPARIN 100 MG/ML SYRINGE SQ SCH (22:24)
[2020-02-27] MEDS: ATORVASTATIN 10 MG TAB PO SCH (22:24)
[2020-02-27] MEDS: POTASSIUM CHLORIDE 20 MEQ in WATER FOR INJECTION 1 100ML.BAG IVPB SCH (23:32)
[2020-02-27 23:44] LABS: Glucose,Whole Blood 63 mg/dL (75-99)
[2020-02-28 00:04] LABS: Glucose,Whole Blood 83 mg/dL (75-99)
[2020-02-28] MEDS: POTASSIUM CHLORIDE 10 MEQ in WATER FOR INJECTION 1 100ML.BAG IVPB SCH ×2 (00:35→02:10)
[2020-02-28] MEDS: PIPERACILLIN-TAZOBACTAM 3.375 GM in SODIUM CHLORIDE 0.9% 100 ML IVPB SCH ×3 (00:35→16:29)
[2020-02-28] MEDS: POTASSIUM CHLORIDE 20 MEQ in WATER FOR INJECTION 1 100ML.BAG IVPB SCH (00:36)
[2020-02-28 04:52] LABS: HCT 35.3 % (39.0-53.0); HGB 11.3 gm/dL (13.0-17.5); Hypochromasia Slight; MCH 32.5 pg (25.0-35.0); MCHC 32.1 g/dL (31.0-37.0); MCV 101.4 fL (80.0-100.0); Macrocytosis Slight; Mean Platelet Volume 10.4; RBC 3.49 m/uL (4.30-5.90); RDW 15.5 % (11.5-15.5)
[2020-02-28 04:56] LABS: Platelet Count 56 k/uL (150-450)
[2020-02-28 05:08] LABS: Calcium 8.2 mg/dL (8.4-10.2); Potassium 4.2 mmol/L (3.5-5.1)
[2020-02-28] MEDS: PANTOPRAZOLE 40 MG TABLET PO SCH (05:28)
[2020-02-28] MEDS: FUROSEMIDE 10 MG/ML 4 ML VIAL IV SCH ×3 (05:39→20:57)
[2020-02-28] MEDS: SODIUM CHLORIDE 0.9% 1,000 ML IV SCH ×2 (06:14→12:13)
[2020-02-28] MEDS: ISOSORBIDE MONONITRATE ER 30 MG TAB.ER.24H PO SCH ×2 (08:14→20:57)
[2020-02-28] MEDS: TAMSULOSIN 0.4 MG CAP.ER.24H PO SCH ×2 (08:15→20:57)
[2020-02-28] MEDS: THEOPHYLLINE 24 HOUR 200 MG CAP.ER.24H PO SCH (08:15)
[2020-02-28] MEDS: FERROUS SULFATE 325 MG TAB PO SCH ×3 (08:16→20:57)
[2020-02-28] MEDS: VANCOMYCIN 1,750 MG in SODIUM CHLORIDE 0.9% 500 ML 500 ML IVPB SCH (08:19)
--- NOTE | 2020-02-28 09:04 | XR ---
EXAMINATION TYPE: XR chest 1V portable DATE OF EXAM: 02/28/2020 COMPARISON: 02/27/2020 HISTORY: Shortness of breath TECHNIQUE: Single frontal view of the chest is obtained. FINDINGS: Left-sided central line is no longer seen. No evidence of pneumothorax. Postoperative hendrix ges and cardiomegaly stable. Bilateral infiltrate and pleural effusion stable. Underlying COPD suspec latia. Diffuse osteopenia and arthropathy shoulders. Atherosclerotic change aorta. IMPRESSION: 1. Bilateral infiltrate and pleural effusion stable.
[2020-02-28] MEDS ORDERED: ceFAZolin 1,000 MG in SODIUM CHLORIDE 0.9% IRRIGATIO 250 ML IRRIGATION ONE (09:19)
[2020-02-28] MEDS ORDERED: SODIUM CHLORIDE 0.9% 1,000 ML IV SCH (09:30)
[2020-02-28] MEDS: SYMBICORT 160-4.5 MCG INHALER INHALATION SCH ×2 (10:26→20:49)
[2020-02-28] MEDS: IPRATROPIUM-ALBUTEROL 3 ML NEB INHALATION SCH ×4 (10:26→20:49)
[2020-02-28 11:06] LABS: Glucose,Whole Blood 90 mg/dL (75-99)
[2020-02-28] MEDS ORDERED: ENOXAPARIN 40 MG/0.4 ML SYRINGE SQ ONE (12:00)
[2020-02-28] MEDS: THIAMINE 100 MG TAB PO SCH (12:14)
[2020-02-28] MEDS: cycloSPORINE 0.05% OPHTH 0.4 ML DROPERETTE BOTH EYES SCH (12:15)
--- NOTE | 2020-02-28 12:51 | P.PN ---
Subjective Patient was extubated. He has underlying atrial fibrillation with a slow ventricular response in the 40s he is developing bradycardia with pauses related torsade, nonsustained no syncope he is asymptomatic but is having frequent episodes Hemoglobin 11.3 platelet count 56,000 on Lovenox. His been a steady drop in platelet count At lites and normal, specifically potassium is 4.2 Creatinine is 1.55 On examination blood pressure 127 of 73 mmHg pulse rate 35-50 beats a minute respirations 18 Afebrile Breath sounds are reduced bilaterally no rhonchi or crackles Soft heart sounds irregular Impression Severe bradycardia with bradycardia related nonsust /PMVT Normal potassium Underlying atrial fibrillation Status post near possibly related to Lovenox I discussed this with Dr. Dunaway I discussed this with the son I would recommend omen pacing and reinitiation of ELIQUIS and stopping Lovenox and Bleakley I had a detailed discussion with the son Explained that the indication for permanent pacing is very different from his condition previously This time his bradycardia is unrelated to hyperkalemia and is associated with the nonsustained arrhythmias and agree important to proceed with permanent pacing today He has a higher risk of infection because he has a history of of MRSA Risk of cardiac puncture and lung puncture of at least 1% Risk of long-term infection Risk of bleeding This time the patient has an absolute indication for permanent pacing The following were also explained to the son However I also explained that when the patient came in with an asystolic cardiac arrest that was respiratory in nature, hypoxic and a permanent pacemaker will not prevent that It was also not address bradycardia secondary to hyperkalemia This patient has multiple medical problems and implantation of a permanent pacemaker is only going to address a small part of his medical issues Son understood and gave consent for permanent pacing. The nurse spoke to him thereafter, nurse Ortiz Objective - Vital Signs Vital signs: Vital Signs Temp 97.7 F 02/28/20 09:00 Pulse 82 02/28/20 11:00 Resp 18 02/28/20 11:00 BP 127/73 02/28/20 11:00 Pulse Ox 98 02/28/20 11:00 Intake & Output 02/27/20 02/28/20 02/28/20 18:59 06:59 18:59 Intake Total 1270.68 950 850 Output Total 905 390 550 Balance 365.68 560 300 Intake: IV 1175 950 850 Piperacillin-Tazobactam 3 200 100 100 .375 gm In Sodium Chloride 0.9% 100 ml @ 25 mls/hr IVPB Q8HR [facility] Rx# :[id number] Potassium Chloride 10 meq 200 In Water For Injection 1 100ml.bag @ 100 mls/hr IVPB Q1H [facility] Rx#: [id number] Potassium Chloride 20 meq 50 In Water For Injection 1 100ml.bag @ 50 mls/hr IVPB Q2H [facility] Rx#: [id number] Sodium Chloride 0.9% 1, 475 600 250 000 ml @ 50 mls/hr IV . Q20H [facility] Rx#:[id number] Vancomycin 1,750 mg In 500 500 Sodium Chloride 0.9% 500 ml 500 ml @ 167 mls/hr IVPB DAILY [facility] Rx#: [id number] Intake, IV Titration 95.68 Amount propofoL 1,000 mg In 95.68 Empty Bag 1 bag @ Titrate IV .Q0M [facility] Rx#: [id number] Output: Urine 905 390 550 Other: Voiding Method Indwelling Catheter Indwelling Catheter - Labs CBC & Chem 7: 02/28/20 04:09 02/28/20 04:09 Labs: Abnormal Lab Results - Last 24 Hours (Table) 02/27/20 02/27/20 02/27/20 Range/Units 12:50 21:45 23:43 RBC (4.30-5.90) m/uL Hgb (13.0-17.5) gm/dL Hct (39.0-53.0) % MCV (80.0-100.0) fL Plt Count (150-450) k/uL ABG pO2 182 H (83-108) mmHg ABG O2 Saturation 100.0 H (94-97) % Chloride 112 H (98-107) mmol/L Carbon Dioxide (22-30) mmol/L BUN 23 H (9-20) mg/dL Creatinine 1.48 H (0.66-1.25) mg/dL POC Glucose (mg/dL) 63 L (75-99) mg/dL Calcium 8.0 L (8.4-10.2) mg/dL Alkaline Phosphatase 34 L (38-126) U/L Total Protein 5.4 L (6.3-8.2) g/dL Albumin 2.2 L (3.5-5.0) g/dL 02/28/20 02/28/20 Range/Units 04:09 04:09 RBC 3.49 L (4.30-5.90) m/uL Hgb 11.3 L (13.0-17.5) gm/dL Hct 35.3 L (39.0-53.0) % MCV 101.4 H (80.0-100.0) fL Plt Count 56 L (150-450) k/uL ABG pO2 (83-108) mmHg ABG O2 Saturation (94-97) % Chloride 115 H (98-107) mmol/L Carbon Dioxide 19 L (22-30) mmol/L BUN 24 H (9-20) mg/dL Creatinine 1.55 H (0.66-1.25) mg/dL POC Glucose (mg/dL) (75-99) mg/dL Calcium 8.2 L (8.4-10.2) mg/dL Alkaline Phosphatase (38-126) U/L Total Protein (6.3-8.2) g/dL Albumin (3.5-5.0) g/dL Microbiology - Last 24 Hours (Table) 02/25/20 11:57 Urine Culture - Final Urine,Voided Rasheeda albicans 02/25/20 13:16 Gram Stain - Final Sputum Sputum Culture - Final Citrobacter freundii
[2020-02-28] MEDS ORDERED: IOPAMIDOL-370 50ML BTL INJ ONE (12:56)
[2020-02-28] MEDS ORDERED: LIDOCAINE 1% INJ 10MG/ML (20 ML MDV) ONE ×2 (12:59→13:12)
[2020-02-28] MEDS ORDERED: IV FLUID CONTINUATION 400 ML IV ONE ×2 (13:00)
[2020-02-28] MEDS ORDERED: LIDOCAINE 1% INJ 10MG/ML (20 ML MDV) SQ ONE ×3 (13:03→13:21)
[2020-02-28] MEDS ORDERED: MIDAZOLAM 2 MG/2 ML VIAL IVP ONE (13:23)
--- NOTE | 2020-02-28 14:07 | P.PN ---
Subjective Progress Note Date: 02/28/20 Principal diagnosis: Acute hypoxic respiratory failure secondary to cardiac arrest/asystole. 78-year-old male patient was brought into the emergency department after he was involved in a cardiac arrest at the retirement. The patient was found to be unresponsive. The EMS sheet is not available. I discussed the case with the emergency physician. Apparently the patient was found to be asystolic. The patient was started CPR. He was having agonal breathing. He was intubated and placed on a mechanical ventilator. There was return of spontaneous circulation at the retirement. The patient was intubated and the patient was brought in to the emergency department intubated on a mechanical ventilator. He is an assist-control mode rate of 12 with tidal volume of 450 and FiO2 of 50% with a PEEP of 5. CT angiogram was done and the patient was found to have no evidence of any pulmonary embolism. He has a moderate-sized left-sided pleural effusion and small right-sided pleural effusion along with some background emphysema. The patient has a A. fib rhythm based on the EKG. He is running bradycardic at this point in time when his heart rate in the mid 40s. He is currently on propofol running at 20 g per KG per minute is well sedated. His most recent blood pressure is 145/60 and he is on no pressors for now. His white cell count is at 9.3 with hemoglobin 11.3. Platelet count is 127. Post intubation blood gas showed a pH of 7.38 with a pCO2 of 39 and pO2 of more than 400. D-dimer is at 1.94 and this is a coagulation profile is within normal limits. His lactic acid level is at 4.6. Potassium level is at 4.9. Liver function tests are within normal limits. First set of troponin 0.04. UA is abnormal. ProBNP level is 1640. On 02/26/2020 patient seen in follow-up in intensive care unit. He remains sedated, and intubated on mechanical ventilator with assist control mode of ventilation with a rate of 12, tidal volumes of 450, FiO2 is 40% and PEEP of 5, displaced blood gases were reviewed showing pO2 191 with pCO2 of 39 pH of 7.39. Currently patient is on 0.9 normal saline at a rate of 135 ML per hour, Diprivan is a 20 mics per kilo per minute, no vasoactive infusions. Today's chest x-ray shows bilateral pleural effusions, bilateral lower lobe infiltrates, on a background of COPD. Patient is in A. fib on the monitor with a rate of 92 BPM, hemodynamically stable, appears very sedated, in no generally swollen, but the significant lower extremity edema. His labs have been reviewed showing white blood cell count of 6.5, hemoglobin of 10.1, sodium of 137, potassium is 4.4, chloride is 110, CO2 is 23, BUN 17 creatinine is 1.19, lactic acid came down to 1.9, he was adequately fluid resuscitated, and he is on Zosyn for empiric an tibiotics coverage, after sedation was held, patient started to wake up, and following simple commands, we will proceed with the spontaneous breathing trials with pressure-support and CPAP. Microbiology culture reviewed, urine and sputum cultures have been negative. Patient was reevaluated today on 02/27/20, patient remains in the ICU, intubated and mechanically ventilated. He is now on assist control rate of 12 tidal volume is 450 FiO2 is 40% and PEEP is 5. His ABG showed a pO2 of 182 pCO2 of 38 pH of 7.37. Patient is on propofol at 20 mcg/kg/m, not requiring any pressors. Patient is noted to be bradycardic, he has a atrial fibrillation/flutter rhythm, rate is 44/m. Patient is arousable, follows simple instructions, hence I plan to give the patient a trial of pressure support of 8 and CPAP, and if tolerated I will pursue further weaning and possibly extubate the patient today. In the meantime I have stopped his propofol, cardiology is evaluating the patient, no plans had been made whether the patient will require a pacemaker placement, undecided yet about the pacemaker although I believe the patient would benefit from a pacemaker placement considering his presentation and his profound bradycardia times not to mention the patient had cardiac arrest, and it was asystole. Patient tested negative for covid 19. His sputum came back positive for Citrobacter, sensitive to most antibiotics. Patient is empirically on Zosyn which seems to be appropriate at this time. Reevaluated today on 02/28/20, patient was extubated yesterday, and he tolerated the extubation quite well so far. Patient was seen by cardiology today, continues to have atrial fibrillation with slow ventricular response in the 40s, and he is developing bradycardia with pauses. Considering his severe bradycardia and considering that clinical presentation of this patient, patient was seen by cardiology, and now he is definitely going for a pacemaker implantation. Labs today were reviewed, CBC is relatively normal except for low hemoglobin. His electrolytes are normal BUN is 24 creatinine is 1.55, obviously patient sustained acute kidney injury since his presentation on 02/25/20. Nonetheless, the patient is doing fairly well, and unclear given for permanent pacemaker implantation to be done today. Chest x-ray today showed bibasilar atelectasis and small bilateral pleural effusions. Objective - Vital Signs Vital signs: Vital Signs Temp 97.6 F 02/28/20 12:00 Pulse 73 02/28/20 12:00 Resp 24 02/28/20 12:00 BP 118/67 02/28/20 12:00 Pulse Ox 100 02/28/20 12:00 Intake & Output 02/27/20 02/28/20 02/28/20 18:59 06:59 18:59 Intake Total 1270.68 950 850 Output Total 905 390 550 Balance 365.68 560 300 Intake: IV 1175 950 850 Piperacillin-Tazobactam 3 200 100 100 .375 gm In Sodium Chloride 0.9% 100 ml @ 25 mls/hr IVPB Q8HR [facility] Rx# :[id number] Potassium Chloride 10 meq 200 In Water For Injection 1 100ml.bag @ 100 mls/hr IVPB Q1H [facility] Rx#: [id number] Potassium Chloride 20 meq 50 In Water For Injection 1 100ml.bag @ 50 mls/hr IVPB Q2H [facility] Rx#: [id number] Sodium Chloride 0.9% 1, 475 600 250 000 ml @ 50 mls/hr IV . Q20H [facility] Rx#:[id number] Vancomycin 1,750 mg In 500 500 Sodium Chloride 0.9% 500 ml 500 ml @ 167 mls/hr IVPB DAILY [facility] Rx#: [id number] Intake, IV Titration 95.68 Amount propofoL 1,000 mg In 95.68 Empty Bag 1 bag @ Titrate IV .Q0M [facility] Rx#: [id number] Output: Urine 905 390 550 Other: Voiding Method Indwelling Catheter Indwelling Catheter Indwelling Catheter - Exam GENERAL EXAM: Sedated, intubated, 79-year-old white male, on nasal cannula. Patient is on 4 L nasal cannula with O2 saturation 100%. HEAD: Normocephalic/atraumatic. ENT: PERRLA, EOMI, neck, dry mucous membranes. CHEST: No chest wall deformity. Symmetrical expansion. LUNGS: Diminished breath sounds at the bases was fine crackles CVS: Irregular rate and rhythm, normal S1 and S2, no gallops, no murmurs, no rubs ABDOMEN: Soft, nontender. No hepatosplenomegaly, normal bowel sounds, no guarding or rigidity. EXTREMITIES: No clubbing, 2 +plus lower extremity +3 edema, no cyanosis, 2+ pulses and upper and lower extremities. MUSCULOSKELETAL: Muscle strength and tone normal. SPINE: No scoliosis or deformity SKIN: No rashes CENTRAL NERVOUS SYSTEM: Alert and oriented 3, no gross focal neurologic deficits. - Labs CBC & Chem 7: 02/28/20 04:09 02/28/20 04:09 Labs: Abnormal Lab Results - Last 24 Hours (Table) 02/27/20 02/27/20 02/28/20 Range/Units 21:45 23:43 04:09 RBC (4.30-5.90) m/uL Hgb (13.0-17.5) gm/dL Hct (39.0-53.0) % MCV (80.0-100.0) fL Plt Count (150-450) k/uL Chloride 112 H 115 H (98-107) mmol/L Carbon Dioxide 19 L (22-30) mmol/L BUN 23 H 24 H (9-20) mg/dL Creatinine 1.48 H 1.55 H (0.66-1.25) mg/dL POC Glucose (mg/dL) 63 L (75-99) mg/dL Calcium 8.0 L 8.2 L (8.4-10.2) mg/dL Alkaline Phosphatase 34 L (38-126) U/L Total Protein 5.4 L (6.3-8.2) g/dL Albumin 2.2 L (3.5-5.0) g/dL 02/28/20 Range/Units 04:09 RBC 3.49 L (4.30-5.90) m/uL Hgb 11.3 L (13.0-17.5) gm/dL Hct 35.3 L (39.0-53.0) % MCV 101.4 H (80.0-100.0) fL Plt Count 56 L (150-450) k/uL Chloride (98-107) mmol/L Carbon Dioxide (22-30) mmol/L BUN (9-20) mg/dL Creatinine (0.66-1.25) mg/dL POC Glucose (mg/dL) (75-99) mg/dL Calcium (8.4-10.2) mg/dL Alkaline Phosphatase (38-126) U/L Total Protein (6.3-8.2) g/dL Albumin (3.5-5.0) g/dL Microbiology - Last 24 Hours (Table) 02/25/20 11:57 Urine Culture - Final Urine,Voided Rasheeda albicans 02/25/20 13:16 Gram Stain - Final Sputum Sputum Culture - Final Citrobacter freundii Assessment and Plan Assessment: 1 acute cardiac arrest, likely in asystole, 2 acute hypoxic respiratory failure secondary to above 3 known history of severe bradycardia (related to Chronic Atrial fibrillation with) cardiology is undecided about pacemaker implantation at this point yet. 4 Multiple sacral decubitus with severe pain with surrounding cellulitis, culture is growing MRSA. 5 chronic stage III kidney injury/disease 6 history of nonsustained ventricular tachycardia 7 CHF/diastolic heart failure 8 COPD 9 hypertension 10 hyperlipidemia 11 coronary artery disease with previous myocardial infarction and the patient has undergone previous coronary artery bypass surgery 12 history of lung cancer with a previous right lung lobectomy/resection 13 claustrophobia 14 retirement resident and the patient arrived to us from [facility]. 15 sacral wound with infection with MRSA and apparently the patient was taken Zyvox on outpatient basis to monitor the wound is healed for now and there is a stage I ulceration of his coccyx on examination. 16 chronic lower extremity edema 17 Patient was extubated on 02/27/20, tolerated the extubation well. Recommendation: Agree with permanent pacemaker implantation. Discussed his condition with the concrete placement equipment operator. Patient could possibly be sent to a monitor bed on selective after pacemaker implantation. Continue incentive spirometry. Continue antibiotics including Zosyn. encourage oral intake and nutrition. Continue GI and DVT prophylaxis. Continue diuretics. Continue updrafts. Continue Protonix. We'll continue to follow Time with Patient: Less than 30
--- NOTE | 2020-02-28 14:32 | P.PN ---
Subjective 79 years old male with multiple medical problems as below. He was recently in this hospital twice, he was discharged on severe bradycardia secondary to hyperkalemia during which time he did not need pacemaker and travel ot and cleared him for discharge while avoiding any potassium sparing drugs like Collins inhibitors, Aldactone or potassium supplements. He was discharged in a stable condition back to his [facility] where he is finishing his rehab treatment. This is patient is intubated so it could not provide information and it was obtained from the records and staff. It looks like the patient became unresponsive found was an halfway and CPR was initiated and eventually patient got intubated and transferred to emergency room by EMS, he was already intubated and currently he is on mechanical ventilation. There was a concern for a systolic and cardiac arrest. When I saw the patient in the ICU he was still intubated however he was some more awake and moving his arms and open his eyes spontaneously but then he goes back to sleep. He is kept sedated and CLOSELY by the pulmonary/critical care team. His heart rate now is bradycardic at 50s and travel ot team were consulted 02/27/2020 Patient is extubated patient is presently on his Lanoxin does have swelling of the right thumb along with redness local is of temperature and there is a localized swelling just distal to the elbow appears to be previous IV line site. We will obtain ultrasound of that area patient will be started on vancomycin had history of MRSA in the past patient does have stage II decubitus ulceration which although doesn't appear to be infected. Patient is presently in atrial fibrillation with heart rate of 44. Cardiology evaluated the patient then not recommending any pacemaker placement at this time. Patient initially presented with profound bradycardia and the patient had a cardiac arrest at that time. Patient is negative for covid19. 02/28/2020 Patient had episodes of went to tachycardia because of which patient will un dergo pacemaker implantation. Patient creatinine went up to 1.55 because of which were dyspnea vancomycin) right upper extremity redness significant improved ultrasound did not show any thrombosis or thrombophlebitis, since there is no clear evidence that the patient has cellulitis or disc any vancomycin considering that patient kidney function is bit worse compared to yesterday. Patient remains on IV Lasix. Constitutional: Denied any fatigue denied any fever. Cardio vascular: denied any chest pain, palpitations Gastrointestinal denied any nausea vomiting Pulmonary: Denied any shortness of breath cough Neurologic denied any new focal deficits All inpatient medications were reviewed and appropriate changes in these medications as dictated in the interval history and assessment and plan. Objective - Vital Signs Vital signs: Vital Signs Temp 97.6 F 02/28/20 12:00 Pulse 73 02/28/20 12:00 Resp 24 02/28/20 12:00 BP 118/67 02/28/20 12:00 Pulse Ox 100 02/28/20 12:00 Intake & Output 02/27/20 02/28/20 02/28/20 18:59 06:59 18:59 Intake Total 1270.68 950 850 Output Total 905 390 550 Balance 365.68 560 300 Intake: IV 1175 950 850 Piperacillin-Tazobactam 3 200 100 100 .375 gm In Sodium Chloride 0.9% 100 ml @ 25 mls/hr IVPB Q8HR [facility] Rx# :[id number] Potassium Chloride 10 meq 200 In Water For Injection 1 100ml.bag @ 100 mls/hr IVPB Q1H [facility] Rx#: [id number] Potassium Chloride 20 meq 50 In Water For Injection 1 100ml.bag @ 50 mls/hr IVPB Q2H [facility] Rx#: [id number] Sodium Chloride 0.9% 1, 475 600 250 000 ml @ 50 mls/hr IV . Q20H [facility] Rx#:[id number] Vancomycin 1,750 mg In 500 500 Sodium Chloride 0.9% 500 ml 500 ml @ 167 mls/hr IVPB DAILY [facility] Rx#: [id number] Intake, IV Titration 95.68 Amount propofoL 1,000 mg In 95.68 Empty Bag 1 bag @ Titrate IV .Q0M [facility] Rx#: [id number] Output: Urine 905 390 550 Other: Voiding Method Indwelling Catheter Indwelling Catheter Indwelling Catheter - Exam PHYSICAL EXAMINATION: GENERAL: The patient is alert and oriented x3, not in any acute distress. Well developed, well nourished. HEENT: Pupils are round and equally reacting to light. EOMI. No scleral icterus. No conjunctival pallor. Normocephalic, atraumatic. No pharyngeal erythema. No thyromegaly. CARDIOVASCULAR: S1 and S2 present. No murmurs, rubs, or gallops. PULMONARY: Chest is clear to auscultation, no wheezing or crackles. ABDOMEN: Soft, nontender, nondistended, normoactive bowel sounds. No palpable o rganomegaly. MUSCULOSKELETAL: No joint swelling or deformity. EXTREMITIES: No cyanosis, clubbing, or pedal edema. NEUROLOGICAL: Gross neurological examination did not reveal any focal deficits. SKIN: Is to sacral decubitus ulcers mentionable and redness in the right upper extremity and swelling resolved - Labs CBC & Chem 7: 02/28/20 04:09 02/28/20 04:09 Labs: Abnormal Lab Results - Last 24 Hours (Table) 02/27/20 02/27/20 02/28/20 Range/Units 21:45 23:43 04:09 RBC (4.30-5.90) m/uL Hgb (13.0-17.5) gm/dL Hct (39.0-53.0) % MCV (80.0-100.0) fL Plt Count (150-450) k/uL Chloride 112 H 115 H (98-107) mmol/L Carbon Dioxide 19 L (22-30) mmol/L BUN 23 H 24 H (9-20) mg/dL Creatinine 1.48 H 1.55 H (0.66-1.25) mg/dL POC Glucose (mg/dL) 63 L (75-99) mg/dL Calcium 8.0 L 8.2 L (8.4-10.2) mg/dL Alkaline Phosphatase 34 L (38-126) U/L Total Protein 5.4 L (6.3-8.2) g/dL Albumin 2.2 L (3.5-5.0) g/dL 02/28/20 Range/Units 04:09 RBC 3.49 L (4.30-5.90) m/uL Hgb 11.3 L (13.0-17.5) gm/dL Hct 35.3 L (39.0-53.0) % MCV 101.4 H (80.0-100.0) fL Plt Count 56 L (150-450) k/uL Chloride (98-107) mmol/L Carbon Dioxide (22-30) mmol/L BUN (9-20) mg/dL Creatinine (0.66-1.25) mg/dL POC Glucose (mg/dL) (75-99) mg/dL Calcium (8.4-10.2) mg/dL Alkaline Phosphatase (38-126) U/L Total Protein (6.3-8.2) g/dL Albumin (3.5-5.0) g/dL Microbiology - Last 24 Hours (Table) 02/25/20 11:57 Urine Culture - Final Urine,Voided Rasheeda albicans 02/25/20 13:16 Gram Stain - Final Sputum Sputum Culture - Final Citrobacter freundii Assessment and Plan Plan: -Status post cardiac arrest and CPR with immediate recovery. He is currently bradycardic, episodes of nonsustained VT patient will undergo pacemaker placement most probably tomorrow -Swelling of the right upper extremity which resolved an ultrasound is negative for DVT or superficial thrombosis. Patient's creatinine went up because of which had this can he vancomycin as there is no clear evidence that patient has cellulitis. Patient remains on Zosyn at this time -Acute hypoxic respiratory failure needing intubation and mechanical ventilation secondary to chronic pulmonary arrest patient is presently extubated patient is extubated on 02/27/2020 -Recent history of severe bradycardia (related to Chronic Atrial fibrillation with) secondary to hyperkalemia, no need for pacemaker placement per Insurance Claims Clerk, however patient should avoid medication like lisinopril, spironolactone and potassium supplementation. Patient was discharged to rehab last week and a stable condition. Potassium was normal. -Acute on chronic kidney injury : Acute renal failure secondary to prerenal azotemia from heart failure was receiving IV Lasix there is mild worsening of symptoms creatinine -History of nonsustained ventricular tachycardia -Atrial fibrillation with bradycardia, patient's Lovenox was discontinued which is appropriate constraining worsening creatinine. I'll leave the decision of IV heparin to cardiology -Generalized weaknessin -Anemia, normocytic possibly multifactorial -history of CAD -CHF with chronic diastolic dysfunction with acute exacerbation patient is on IV Lasix at this time -History of COPD, asthma -Hypertension -Hyperlipidemia -Coronary artery disease with history of CABG in the past -History of right lung cancer with wedge resection severe pulmonary hypertension -Chronic kidney disease stage III: Etiology is not known
[2020-02-28] MEDS ORDERED: ACETAMINOPHEN TAB 325 MG TAB PO PRN (14:47)
--- NOTE | 2020-02-28 16:00 | XR ---
EXAMINATION TYPE: XR chest 1V portable DATE OF EXAM: 02/28/2020 HISTORY: Shortness of breath. COMPARISON: 02/28/2020 TECHNIQUE: Single view of the chest is submitted. FINDINGS: Demonstrated are scattered senescent parenchymal change. Basilar infiltrates have significantly improved. Single-lead pacer device is noted with its distal le ads within the right ventricle. No evidence for pneumothorax. The heart is stable. Hilar and mediastinal structures are within normal limits. Degenerative changes are seen of the dorsal spine. IMPRESSION: 1. Basilar infiltrates have significantly improved. Single-lead pacer device is noted with its dista l leads within the right ventricle. No evidence for pneumothorax.
--- NOTE | 2020-02-28 16:57 | PCN ---
PROCEDURE NOTE DATE OF SERVICE: 02/28/2020 PACEMAKER PROCEDURE REPORT: PROCEDURE: 1. Temporary transvenous pacemaker from right femoral venous approach. 2. Permanent single-chamber pacemaker from left infraclavicular approach. PERFORMED BY: Dr. Alysha Dunaway. Moderate conscious sedation time was 97 minutes. Patient was administered Versed. His oxygen saturation, hemodynamics and EKG were monitored closely. CLINICAL INFORMATION: Mr. Khanh Mahmood is a 79-year-old gentleman with a history of CAD, prior aortocoronary bypass surgery, chronic atrial fibrillation, past history of smoking with severe COPD requiring steroids. He also had issues with hyperkalemia recently with bradycardia. He was in the hospital a couple of times with bradycardia in the setting of hyperkalemia. However, he was discharged for 2 reasons. The pacemaker was not placed one is because his bradycardia occurred in the setting of hyperkalemia and he also has a wound on his low back with some MRSA colonization. However, patient came back this time, had a significant bradycardia without hyperkalemia and also had a bradycardia induced torsade and therefore Dr. Mororw evaluated him and recommended a pacemaker. I spoke to the patient at length. I spoke to his in person and to his son by phone, explained the rationale, risks, benefits, options. I explained the high risk of infection and high risk of complication given the fact he has underlying emphysema. PROCEDURE NOTE: Under local anesthesia and strict aseptic precautions, a 6-Nepalese introducer was placed in the right femoral vein. A transvenous balloon tipped pacemaker was positioned in the right ventricular apex with a good threshold of 0.5 mV. Pacemaker was set at a backup rate of 50 with an mA of 5. I then unscrubbed and rescrubbed again. Under strict aseptic precautions and local anesthesia, I tried to gain access under fluoroscopic guidance with a micropuncture needle into the axillary vein. Initially, I hit the vein. I did not get a good return and after that I was unable to access the vein easily. Multiple times, I hit the subclavian artery which was quite pulsatile. After multiple attempts, I was able to get a venous access very securely. The wire was advanced under fluoroscopic guidance. A sheath was also placed. Under fluoroscopic guidance, a ventricular lead was placed in the right ventricular apex. A good thresholds and R-waves were achieved. The pacemaker wire was screwed into the right ventricular apex. The lead was checked both in IRANIAN and JLUES projections. I also did a 10 V pacing. After satisfying that, the lead position was good, the threshold and R- waves and impedance was good. I then secured the lead to the underlying muscle with 0 silk. The pulse generator was then connected to the lead. Pulse generator was also secured to the underlying muscle in the line of the incision. The pocket was irrigated with antibiotic and an antibiotic sponge was left in the pocket. There was a lot of oozing noted and I applied some D Stat. The wound was closed in 2 layers. Good hemostasis was secured. The patient will be sent to the ICU. He will have a portable chest x-ray today and a two-view chest x-ray tomorrow if possible. Device will be checked again in the morning. 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, [employer], MRI [id number], serial #[id number]. Ventricular lead, mechanic and welder [employer], model Tendril 2088 CC-58, serial #[id number]. The threshold was 0.5 V at 0.4 milliseconds. R-wave was 5.6 V. Lead impedance was 460 ohms. The pacemaker was set in a more of a VVIR, low rate was 70, high rate was 120. The patient tolerated the procedure well. The details were discussed with the patient, his in person and with his son by phone. ARJUN / KATE: [id number] /
[2020-02-28 17:42] LABS: Glucose,Whole Blood 110 mg/dL (75-99)
[2020-02-28] MEDS: FOLIC ACID 1 MG TAB PO SCH (20:57)
[2020-02-28] MEDS: ASCORBIC ACID 500 MG TAB PO SCH (20:57)
[2020-02-28] MEDS: ATORVASTATIN 10 MG TAB PO SCH (20:57)
[2020-02-28] MEDS: MULTIVITAMINS, THERA 1 EACH TAB PO SCH (20:57)
[2020-02-29] MEDS: cycloSPORINE 0.05% OPHTH 0.4 ML DROPERETTE BOTH EYES SCH ×2 (00:13→08:37)
[2020-02-29] MEDS: PIPERACILLIN-TAZOBACTAM 3.375 GM in SODIUM CHLORIDE 0.9% 100 ML IVPB SCH ×3 (00:17→18:47)
[2020-02-29] MEDS: PANTOPRAZOLE 40 MG TABLET PO SCH (06:21)
[2020-02-29] MEDS: SODIUM CHLORIDE 0.9% 1,000 ML IV SCH (06:45)
[2020-02-29] MEDS: FERROUS SULFATE 325 MG TAB PO SCH ×3 (08:35→18:48)
[2020-02-29] MEDS: ISOSORBIDE MONONITRATE ER 30 MG TAB.ER.24H PO SCH ×2 (08:35→18:47)
[2020-02-29] MEDS: THIAMINE 100 MG TAB PO SCH (08:35)
[2020-02-29] MEDS: TAMSULOSIN 0.4 MG CAP.ER.24H PO SCH ×2 (08:35→18:47)
[2020-02-29] MEDS: THEOPHYLLINE 24 HOUR 200 MG CAP.ER.24H PO SCH (08:36)
[2020-02-29] MEDS: FUROSEMIDE 10 MG/ML 4 ML VIAL IV SCH ×2 (08:36→20:42)
--- NOTE | 2020-02-29 09:04 | P.PN ---
Subjective 79 years old male with multiple medical problems as below. He was recently in this hospital twice, he was discharged on severe bradycardia secondary to hyperkalemia during which time he did not need pacemaker and it analyst and cleared him for discharge while avoiding any potassium sparing drugs like Collins inhibitors, Aldactone or potassium supplements. He was discharged in a stable condition [facility] where [facility] is [facility] treatment. This is patient is intubated so it could not provide information and it was obtained from the records and staff. It looks like the patient became unresponsive found was an [facility] and CPR was initiated and eventually patient got intubated and transferred to emergency room by EMS, he was already intubated and currently he is on mechanical ventilation. There was a concern for a systolic and cardiac arrest. When I saw the patient in the ICU he was still intubated however he was some more awake and moving his arms and open his eyes spontaneously but then he goes back to sleep. He is kept sedated and CLOSELY by the pulmonary/critical care team. His heart rate now is bradycardic at 50s and it analyst team were consulted 02/27/2020 Patient is extubated patient is presently on his Lanoxin does have swelling of the right thumb along with redness local is of temperature and there is a localized swelling just distal to the elbow appears to be previous IV line site. We will obtain ultrasound of that area patient will be started on vancomycin had history of MRSA in the past patient does have stage II decubitus ulceration which although doesn't appear to be infected. Patient is presently in atrial fibrillation with heart rate of 44. Cardiology evaluated the patient then not recommending any pacemaker placement at this time. Patient initially presented with profound bradycardia and the patient had a cardiac arrest at that time. Patient is negative for covid19. 02/28/2020 Patient had episodes of went to tachycardia because of which patient will un dergo pacemaker implantation. Patient creatinine went up to 1.55 because of which were dyspnea vancomycin) right upper extremity redness significant improved ultrasound did not show any thrombosis or thrombophlebitis, since there is no clear evidence that the patient has cellulitis or disc any vancomycin considering that patient kidney function is bit worse compared to yesterday. Patient remains on IV Lasix. 02/29/2020 Patient had a pacemaker and single-chamber AICD. Patient respiratory status improved still has some crackles in the lung exam still has infiltrate on the chest x-ray patient still remains on IV Lasix patient also requirements have gone down and is presently on 2 L of oxygen. She didn't does have cough feeling much better. Constitutional: Denied any fatigue denied any fever. Cardio vascular: denied any chest pain, palpitations Gastrointestinal denied any nausea vomiting Pulmonary: Denied any shortness of breath cough Neurologic denied any new focal deficits All inpatient medications were reviewed and appropriate changes in these medications as dictated in the interval history and assessment and plan. Objective - Vital Signs Vital signs: Vital Signs Temp 98.1 F 02/29/20 03:50 Pulse 70 02/29/20 03:50 Resp 18 02/29/20 03:50 BP 117/56 02/29/20 03:50 Pulse Ox 94 L 02/29/20 03:50 Intake & Output 02/28/20 02/29/20 02/29/20 18:59 06:59 18:59 Intake Total 1050 100 Output Total 1075 1425 Balance -25 -1325 Weight 98.5 kg Intake: IV 1050 100 Piperacillin-Tazobactam 3 100 100 .375 gm In Sodium Chloride 0.9% 100 ml @ 25 mls/hr IVPB Q8HR [facility] Rx# :[id number] Sodium Chloride 0.9% 1, 300 000 ml @ 50 mls/hr IV . Q20H [facility] Rx#:[id number] Vancomycin 1,750 mg In 500 Sodium Chloride 0.9% 500 ml 500 ml @ 167 mls/hr IVPB DAILY [facility] Rx#: [id number] Oral 0 Output: Urine 1075 1425 Other: Voiding Method Indwelling Catheter Indwelling Catheter # Bowel Movements 0 - Exam PHYSICAL EXAMINATION: GENERAL: The patient is alert and oriented x3, not in any acute distress. Well developed, well nourished. HEENT: Pupils are round and equally reacting to light. EOMI. No scleral icterus. No conjunctival pallor. Normocephalic, atraumatic. No pharyngeal erythema. No thyromegaly. CARDIOVASCULAR: S1 and S2 present. No murmurs, rubs, or gallops. pacemaker generator on the left side of the chest which, with possible hematoma PULMONARY: Chest is clear to auscultation, no wheezing or crackles. ABDOMEN: Soft, nontender, nondistended, normoactive bowel sounds. No palpable organomegaly. MUSCULOSKELETAL: No joint swelling or deformity. EXTREMITIES: No cyanosis, clubbing, or pedal edema. NEUROLOGICAL: Gross neurological examination did not reveal any focal deficits. SKIN: Is to sacral decubitus ulcers mentionable and redness in the right upper extremity and swelling resolved - Labs CBC & Chem 7: 02/28/20 04:09 02/28/20 04:09 Labs: Abnormal Lab Results - Last 24 Hours (Table) 02/28/20 Range/Units 17:13 POC Glucose (mg/dL) 110 H (75-99) mg/dL Assessment and Plan Plan: -Status post cardiac arrest and CPR with immediate recovery. With episodes of bradycardia with atrial fibrillation and nonsustained VT, patient is status post pacemaker and single-chamber AICD placement -Swelling of the right upper extremity which resolved an ultrasound is negative for DVT or superficial thrombosis. Patient's creatinine went up because of which had this can he vancomycin as there is no clear evidence that patient has cellulitis. She and is on ceftezolin Zosyn will be discontinued -Acute hypoxic respiratory failure needing intubation and mechanical ventilation secondary to chronic pulmonary arrest patient is presently extubated patient is extubated on 02/27/2020 -Recent history of severe bradycardia (related to Chronic Atrial fibrillation with) secondary to hyperkalemia, -Acute on chronic kidney injury : Acute renal failure secondary to prerenal az otemia from heart failure was receiving IV Lasix there is mild worsening of creatinine is stable creatinine. -History of nonsustained ventricular tachycardia -Atrial fibrillation with bradycardia, patient's Lovenox was discontinued which is appropriate constraining worsening creatinine. -Generalized weaknessin -Anemia, normocytic possibly multifactorial -history of CAD -CHF with chronic diastolic dysfunction with acute exacerbation patient is on IV Lasix at this time -History of COPD, asthma -Hypertension -Hyperlipidemia -Coronary artery disease with history of CABG in the past -History of right lung cancer with wedge resection severe pulmonary hypertension -Chronic kidney disease stage III: Etiology is not known
--- NOTE | 2020-02-29 09:07 | P.CONS ---
History of Present Illness - Reason for Consult Consult date: 02/29/20 wound care - History of Present Illness is a 79-year-old male being seen by the wound care center for a nonhealing ulceration to the sacrum. Patient denies any ulcerations. He states that he did not have anything prior to arrival to the hospital. Patient's past medical history significant for atrophic relation, coronary artery disease, chronic kidney disease stage III, right lung cancer with a wedge resection no chemo or radiation. Severe pulmonary hypertension, Review of Systems Review Of Systems: Constitutional: No fever, no chills, no night sweats. No weight change. No weakness, fatigue or lethargy. No daytime sleepiness. Integumentary:denies wounds, no lesions. No rash or pruritus. No unusual bruising. No change in hair or nails. Past Medical History Past Medical History: Atrial Fibrillation, Coronary Artery Disease (CAD), Cancer, Heart Failure, COPD, Hyperlipidemia, Hypertension, Myocardial Infarction (PR), Renal Disease Additional Past Medical History / Comment(s): R lung cancer with wedge resection-no chemo or radiation, severe pulmonary HTN, CKD stage III, anemia,hia miriam hernia, constipation/benign polyp, bradycardia. First degree Heart Block 01/2020. Last Myocardial Infarction Date:: 2002 History of Any Multi-Drug Resistant Organisms: MRSA Year Discovered:: 02/10/20 MDRO Source:: Buttock Past Surgical History: Appendectomy, Coronary Bypass/CABG, Heart Catheterization, Orthopedic Surgery Additional Past Surgical History / Comment(s): 2002 CABG 3 vessel, cardiac angioplasty, R lung wedge resection, R hip closed reduction/ORIF, EGD, colonoscopies/polypectgomies. Past Anesthesia/Blood Transfusion Reactions: No Reported Reaction Additional Past Anesthesia/Blood Transfusion Reaction / Comm: CLAUSTERPHOBIA. Pt has received blood in past without reaction. Past Psychological History: No Psychological Hx Reported Additional Psychological History / Comment(s): Pt resides at [facility] for rehab. Smoking Status: Former smoker Past Alcohol Use History: None Reported Additional Past Alcohol Use History / Comment(s): started smoking at age 18 (1959), quit 2001 smoked 1 ppd. Past Drug Use History: None Reported - Past Family History Father Family Medical History: Cancer Additional Family Medical History / Comment(s): of pancreatic cancer Mother Family Medical History: Diabetes Mellitus Additional Family Medical History / Comment(s): AT AGE 90 WAS IN PRETTY GOOD HEALTH FROM OLD AGE Brother(s) Family Medical History: Diabetes Mellitus Additional Family Medical History / Comment(s): 2 BROTHERS HAVE DIABETES Medications and Allergies Home Medications Medication Instructions Recorded Confirmed Type Tiotropium 18 Mcg/Puff [Spiriva] 1 cap INHALATION RT-DAILY@0800 07/13/13 02/25/20 History Nitroglycerin Sl Tabs [Nitrostat] 0.4 mg SL Q5M PRN 03/19/16 02/25/20 History Ferrous Sulfate [Iron] 325 mg PO TID@0800,1200,1700 11/09/17 02/25/20 History Isosorbide Mononitrate [Isosorbide 30 mg PO BID@0800,1700 11/09/17 02/25/20 History Mononitrate ER] Ipratropium-Albuterol Nebulize 3 ml INHALATION RT-QID PRN 03/22/18 02/25/20 History [Duoneb 0.5 mg-3 mg/3 ml Soln] Apixaban [Eliquis] 2.5 mg PO BID@0800,1700 09/27/18 02/25/20 History Budesonide-Formot 160-4.5 Mcg 2 puff INHALATION RT-BID@0800,1700 09/25/19 02/25/20 History [Symbicort 160-4.5 Mcg Inhaler] Folic Acid 1 mg PO DAILY@1700 09/25/19 02/25/20 History Ascorbic Acid [Vitamin C] 250 mg PO DAILY@1700 02/09/20 02/25/20 History Multivitamins, Thera [Multivitamin 1 tab PO DAILY@1700 02/09/20 02/25/20 History (formulary)] cycloSPORINE 0.05% OPHTH SOLN 1 drop BOTH EYES Q12H 02/09/20 02/25/20 History [Restasis] Thiamine [Vitamin B-1] 100 mg PO DAILY@1200 tab 02/14/20 02/25/20 Rx Acetaminophen Tab [Tylenol] 650 mg PO Q6H PRN 02/15/20 02/25/20 History Ensure Clear 120 ml PO TID@0800,1200,1700 02/15/20 02/25/20 History Magnesium Hydroxide [Milk of 7,200 mg PO Q48H PRN 02/15/20 02/25/20 History Magnesia Concentrate] Magnesium Oxide [Mag-Ox] 400 mg PO BID@0800,1700 02/15/20 02/25/20 History Na Phos,M-B/Na Phos,Di-Ba [Fleet 133 ml RECTAL DAILY PRN 02/15/20 02/25/20 History Adult] Pantoprazole [Protonix] 40 mg PO DAILY@0600 02/15/20 02/25/20 History Simvastatin [Zocor] 20 mg PO HS@2100 02/15/20 02/25/20 History Tamsulosin HCl [Flomax] 0.4 mg PO BID@0800,1700 02/15/20 02/25/20 History Theophylline 24 Hour [Fabrice-24] 200 mg PO DAILY@0800 02/15/20 02/25/20 History bisacodyL [Bisacodyl] 10 mg RECTAL DAILY PRN 02/15/20 02/25/20 History Linezolid 600 mg PO Q12H 02/25/20 02/25/20 History Nystatin 100,000 Unit/ml Susp 5 ml PO QID 02/25/20 02/25/20 History [Mycostatin Oral Susp] bisacodyL [Dulcolax] 10 mg RECTAL DAILY PRN 02/25/20 02/25/20 History Allergies Allergy/AdvReac Type Severity Reaction Status Date / Time No Known Allergies Allergy Verified 02/25/20 14:46 Physical Exam Vitals: Vital Signs Temp Pulse Pulse Resp BP BP Pulse Ox 02/29/20 03:50 98.1 F 70 18 117/56 94 L 02/29/20 01:12 16 02/29/20 00:54 98.4 F 70 16 164/70 94 L 02/28/20 21:02 72 02/28/20 20:50 72 02/28/20 20:15 98.1 F 70 16 133/76 93 L 02/28/20 18:32 70 16 132/63 98 02/28/20 17:32 70 16 151/68 98 02/28/20 16:00 73 14 134/61 98 02/28/20 15:51 70 17 02/28/20 15:45 68 14 122/56 100 02/28/20 15:44 70 16 02/28/20 15:30 98 F 70 19 118/67 97 02/28/20 15:15 118/67 02/28/20 15:00 118/67 02/28/20 14:45 118/67 02/28/20 14:30 118/67 02/28/20 14:15 118/67 02/28/20 14:00 118/67 02/28/20 12:00 97.6 F 73 24 118/67 100 02/28/20 11:00 82 18 127/73 98 02/28/20 10:00 35 L 16 129/80 100 02/28/20 09:00 97.7 F 41 L 14 115/96 100 Intake and Output 02/28/20 02/29/20 02/29/20 22:59 06:59 14:59 Intake Total 50 100 Output Total 1650 300 Balance -1600 -200 Intake: IV 50 100 Piperacillin-Tazobactam 3 100 .375 gm In Sodium Chloride 0.9% 100 ml @ 25 mls/hr IVPB Q8HR [facility] Rx# :[id number] Sodium Chloride 0.9% 1, 50 000 ml @ 50 mls/hr IV . Q20H [facility] Rx#:[id number] Oral 0 Output: Urine 1650 300 Other: Voiding Method Indwelling Catheter Indwelling Catheter # Bowel Movements 0 Weight 98.5 kg Physical exam: General Appearance: Alert, cooperative, no distress, appears stated age. Skin: patient has a stage I pressure ulcer to the sacrum with redness. There is no open ulcerations at this time. Patient does have abrasions related to defibrillator pads to the left flank area.all other Skin color, texture, tugor normal, no rashes or lesions. Neurologic: Alert oriented x3 Results CBC & Chem 7: 02/28/20 04:09 02/28/20 04:09 Labs: Abnormal Lab Results - Last 24 Hours (Table) 02/28/20 Range/Units 17:13 POC Glucose (mg/dL) 110 H (75-99) mg/dL Assessment and Plan (1) Stage I pressure ulcer of sacral region Current Visit: Yes Status: Acute Code(s): L89.151 - PRESSURE ULCER OF SACRAL REGION, STAGE 1 SNOMED Code(s): 841541334 Plan: applying zinc and sacrum foam dressing change every other day. Thank you for the consultation any questions please contact the wound care center DNP note has been reviewed and discussed with Dr. Lemus and the impression and plan of care has been directed as dictated.
[2020-02-29] MEDS: IPRATROPIUM-ALBUTEROL 3 ML NEB INHALATION SCH ×4 (09:10→19:16)
[2020-02-29] MEDS: SYMBICORT 160-4.5 MCG INHALER INHALATION SCH ×2 (09:16→19:16)
--- NOTE | 2020-02-29 09:34 | XR ---
EXAMINATION TYPE: XR chest 2V DATE OF EXAM: 02/29/2020 COMPARISON: 02/28/2020 TECHNIQUE: PA and lateral views submitted. HISTORY: Lead placement check FINDINGS: Cardiac device stable and there is bilateral infiltrate and pleural effusion with interstitial patter n unchanged. Postoperative changes seen. Arthropathy of the shoulders. No pneumothorax. Heart size st able. IMPRESSION: 1. Bilateral infiltrate and pleural effusion stable correlate for CHF otherwise consider pneumonia.
--- NOTE | 2020-02-29 14:23 | P.PN ---
Subjective Progress Note Date: 02/29/20 HISTORY OF PRESENT ILLNESS: Patient examined this morning at bedside. He is status post permanent single-chamber pacemaker with Dr. Dunaway. Postop day #1. Patient denies chest pain or pressure. He denies shortness of breath. He does have frequent coughing this morning upon examination. He does report some tenderness at his pacemaker site. He does have a hematoma at his pacemaker site. Platelet count 56. Chest x-ray reveals bilateral infiltrates and pleural effusion. PHYSICAL EXAM: VITAL SIGNS: Reviewed. GENERAL: Well-developed in no acute distress. NECK: Supple. No JVD or thyromegaly LUNGS: Respirations even and unlabored. Lungs diminished with crackles to the bilateral bases HEART: Regular rate and rhythm. S1 and S2 heard. Pacemaker site to left chest wall with hematoma noted. EXTREMITIES: Normal range of motion. No clubbing or cyanosis. Peripheral pulses intact. 1-2+ bilateral lower extremity edema ASSESSMENT: Acute cardiac arrest Acute hypoxic respiratory failure Severe bradycardia, s/p PPM insertion Chronic persistent atrial fibrillation COPD Coronary artery disease with previous CABG PLAN: Nursing to hold pressure at hematoma site and then apply pressure dressing Continue to hold Eliquis due to hematoma Further recommendations pending patient course Nurse practitioner note has been reviewed by physician. Signing provider agrees with the documented findings, assessment, and plan of care. Objective - Vital Signs Vital signs: Vital Signs Temp 98.1 F 02/29/20 03:50 Pulse 72 02/29/20 09:22 Resp 18 02/29/20 03:50 BP 117/56 02/29/20 03:50 Pulse Ox 94 L 02/29/20 03:50 Intake & Output 02/28/20 02/29/20 02/29/20 18:59 06:59 18:59 Intake Total 1050 100 Output Total 1075 1425 Balance -25 -1325 Weight 98.5 kg 98.5 kg Intake: IV 1050 100 Piperacillin-Tazobactam 3 100 100 .375 gm In Sodium Chloride 0.9% 100 ml @ 25 mls/hr IVPB Q8HR [facility] Rx# :[id number] Sodium Chloride 0.9% 1, 300 000 ml @ 50 mls/hr IV . Q20H [facility] Rx#:[id number] Vancomycin 1,750 mg In 500 Sodium Chloride 0.9% 500 ml 500 ml @ 167 mls/hr IVPB DAILY [facility] Rx#: [id number] Oral 0 Output: Urine 1075 1425 Other: Voiding Method Indwelling Catheter Indwelling Catheter # Bowel Movements 0 - Labs CBC & Chem 7: 02/28/20 04:09 02/28/20 04:09 Labs: Abnormal Lab Results - Last 24 Hours (Table) 02/28/20 Range/Units 17:13 POC Glucose (mg/dL) 110 H (75-99) mg/dL
--- NOTE | 2020-02-29 14:44 | CDI ---
Documentation Clarification Form Date: 02/29/2020 02:11:39 PM From: Jammie Cancino RN CCDS Admit Date: 02/25/2020 02:55:00 PM Patient Name: Khanh Mahmood Visit Number: [id number] Discharge Date: ATTENTION: The Clinical Documentation Specialists (CDI) and [facility] Coding Staff appreciate your assistance in clarifying documentation. Please respond to the clarification below the line at the bottom and electronically sign. The CDI & [facility] Coding staff will review the response and follow-up if needed. Please note: Queries are made part of the Legal Health Record. If you have any questions, please contact the author of this message via ITS. Dr. Anne Marie Powers Conflicting documentation has been found in the medical record: Stage II decubitus ulceration is documented in the Internal Medicine Progress Notes 02/26 & 02/28 Stage I pressure ulcer of the sacral region is documented in the Wound Consult 02/28 History/Risk Factors: 79 y/o male presents to the ED via EMS from ECF s/p cardiac arrest. Medical history: Anemia, Bradycardia, CHF, HTN, CKD III Clinical Indicators: Wound Care Consult 02/28: Skin: patient has a stage I pressure ulcer to the sacrum with redness. There is no open ulcerations at this time. Patient does have abrasions related to defibrillator pads to the left flank area. all other skin color, texture, turgor normal, no rashes or lesions. Treatment: Zinc and sacrum foam dressing change every other day. Turn 2 Q Hours In your opinion, what is the most clinically appropriate diagnosis for this patient? Stage I pressure ulcer of the sacral region Stage II pressure ulcer of the sacral region Other explanation of clinical findings Unable to determine (no explanation for clinical findings) (Last Revision: June 2017) My impression is as per my documentation MTDD
--- NOTE | 2020-02-29 16:00 | CDI ---
Documentation Clarification Form Date: 02/29/2020 03:43:18 PM From: Jammie Cancino Admit Date: 02/25/2020 02:55:00 PM Patient Name: Khanh Mahmood Visit Number: [id number] Discharge Date: ATTENTION: The Clinical Documentation Specialists (CDI) and [facility] Coding Staff appreciate your assistance in clarifying documentation. Please respond to the clarification below the line at the bottom and electronically sign. The CDI & [facility] Coding staff will review the response and follow-up if needed. Please note: Queries are made part of the Legal Health Record. If you have any questions, please contact the author of this message via ITS. Dr. Anne Marie Powers Increased Metabolic demand for wound healing as evidenced by pressure injury Is documented in the Nutritional Assessment 02/28 History/Risk Factors: 79 y/o male presents to the ED via EMS from ECF s/p cardiac arrest. Medical history: Anemia, Afib; Bradycardia, CHF, HTN, CKD III, Lung CA with wedge resection Clinical Indicators: Nutritional Assessment 02/28 Referral Source: NPO/Clear Liquid > 4Days Nutrition Intake: Poor; Percent consumed 0%, NPO for 3 days; Nutrition concerns Difficulty in swallowing. 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 Related to: Increased metabolic demand for wound healing; pressure injury. Nutrition Goals: Increased PO intake from 50%-75%; meeting 75% of estimated nutritional needs. Improved skin integrity. Treatment: Dietary Consult: See above Nutritional Assessment Supplements: Magic Cups TID Lab monitoring: Albumin Other: Texture -modified diet, energy modified diet In your professional opinion, can you please clarify if these findings signify one of the following conditions? Mild Protein-Calorie Malnutrition Moderate Protein-Calorie Malnutrition Other condition, please specify Unable to determine (Last Revision: September 2018) No malnutrition MTDD
[2020-02-29] MEDS: MULTIVITAMINS, THERA 1 EACH TAB PO SCH (18:47)
[2020-02-29] MEDS: ASCORBIC ACID 500 MG TAB PO SCH (18:48)
[2020-02-29] MEDS: FOLIC ACID 1 MG TAB PO SCH (18:48)
[2020-02-29] MEDS: ATORVASTATIN 10 MG TAB PO SCH (20:42)
[2020-03-01] MEDS: cycloSPORINE 0.05% OPHTH 0.4 ML DROPERETTE BOTH EYES SCH ×3 (00:01→23:56)
[2020-03-01] MEDS: PIPERACILLIN-TAZOBACTAM 3.375 GM in SODIUM CHLORIDE 0.9% 100 ML IVPB SCH ×4 (00:18→23:56)
[2020-03-01] MEDS: PANTOPRAZOLE 40 MG TABLET PO SCH (06:39)
[2020-03-01 08:30] LABS: HCT 28.1 % (39.0-53.0); MCH 32.2 pg (25.0-35.0); MCHC 32.9 g/dL (31.0-37.0); MCV 97.8 fL (80.0-100.0); Macrocytosis Slight; Mean Platelet Volume 11.8; RBC 2.87 m/uL (4.30-5.90); RDW 15.6 % (11.5-15.5); WBC 8.2 k/uL (3.8-10.6)
[2020-03-01 08:34] LABS: HGB 9.2 gm/dL (13.0-17.5); Platelet Count 46 k/uL (150-450)
[2020-03-01 09:00] LABS: Calcium 7.9 mg/dL (8.4-10.2)
[2020-03-01 09:07] LABS: Potassium 2.5 mmol/L (3.5-5.1)
[2020-03-01] MEDS: ISOSORBIDE MONONITRATE ER 30 MG TAB.ER.24H PO SCH ×2 (09:10→17:26)
[2020-03-01] MEDS: TAMSULOSIN 0.4 MG CAP.ER.24H PO SCH ×2 (09:10→17:25)
[2020-03-01] MEDS: FUROSEMIDE 10 MG/ML 4 ML VIAL IV SCH (09:10)
[2020-03-01] MEDS: FERROUS SULFATE 325 MG TAB PO SCH ×3 (09:10→17:26)
[2020-03-01] MEDS: THIAMINE 100 MG TAB PO SCH (09:10)
[2020-03-01] MEDS: THEOPHYLLINE 24 HOUR 200 MG CAP.ER.24H PO SCH (09:11)
[2020-03-01] MEDS: IPRATROPIUM-ALBUTEROL 3 ML NEB INHALATION SCH ×4 (10:00→19:40)
[2020-03-01] MEDS: SYMBICORT 160-4.5 MCG INHALER INHALATION SCH ×2 (10:49→19:39)
[2020-03-01] MEDS ORDERED: POTASSIUM CHLORIDE ER 20 MEQ TAB.ER PO STA ×2 (12:07)
--- NOTE | 2020-03-01 12:23 | P.PN ---
Subjective 79 years old male with multiple medical problems as below. He was recently in this hospital twice, he was discharged on severe bradycardia secondary to hyperkalemia during which time he did not need pacemaker and corporate development intern and cleared him for discharge while avoiding any potassium sparing drugs like Collins inhibitors, Aldactone or potassium supplements. He was discharged in a stable condition back to his [facility] where he is finishing his rehab treatment. This is patient is intubated so it could not provide information and it was obtained from the records and staff. It looks like the patient became unresponsive found was an [facility] and CPR was initiated and eventually patient got intubated and transferred to emergency room by EMS, he was already intubated and currently he is on mechanical ventilation. There was a concern for a systolic and cardiac arrest. When I saw the patient in the ICU he was still intubated however he was some more awake and moving his arms and open his eyes spontaneously but then he goes back to sleep. He is kept sedated and CLOSELY by the pulmonary/critical care team. His heart rate now is bradycardic at 50s and corporate development intern team were consulted 02/27/2020 Patient is extubated patient is presently on his Lanoxin does have swelling of the right thumb along with redness local is of temperature and there is a localized swelling just distal to the elbow appears to be previous IV line site. We will obtain ultrasound of that area patient will be started on vancomycin had history of MRSA in the past patient does have stage II decubitus ulceration which although doesn't appear to be infected. Patient is presently in atrial fibrillation with heart rate of 44. Cardiology evaluated the patient then not recommending any pacemaker placement at this time. Patient initially presented with profound bradycardia and the patient had a cardiac arrest at that time. Patient is negative for covid19. 02/28/2020 Patient had episodes of went to tachycardia because of which patient will un dergo pacemaker implantation. Patient creatinine went up to 1.55 because of which were dyspnea vancomycin) right upper extremity redness significant improved ultrasound did not show any thrombosis or thrombophlebitis, since there is no clear evidence that the patient has cellulitis or disc any vancomycin considering that patient kidney function is bit worse compared to yesterday. Patient remains on IV Lasix. 02/29/2020 Patient had a pacemaker and single-chamber AICD. Patient respiratory status improved still has some crackles in the lung exam still has infiltrate on the chest x-ray patient still remains on IV Lasix patient also requirements have gone down and is presently on 2 L of oxygen. She didn't does have cough feeling much better. 03/01/2020 Patient the will probably has a hematoma on the low side of the chest and there is drop in hemoglobin by 2 points because of which are cardiology wanted to monitor the patient with repeat hemoglobin tomorrow. Patient Lasix dose was als o decreased to 40 mg daily patient underwent speech therapy evaluation. Patient remains on Zosyn may not require any antibiotics upon discharge. Patient's serum creatinine remains stable at 1.5. Patient looks much better. Constitutional: Denied any fatigue denied any fever. Cardio vascular: denied any chest pain, palpitations Gastrointestinal denied any nausea vomiting Pulmonary: Denied any shortness of breath cough Neurologic denied any new focal deficits All inpatient medications were reviewed and appropriate changes in these medications as dictated in the interval history and assessment and plan. Objective - Vital Signs Vital signs: Vital Signs Temp 98.4 F 03/01/20 03:50 Pulse 75 03/01/20 10:58 Resp 18 03/01/20 03:50 BP 134/62 03/01/20 03:50 Pulse Ox 96 03/01/20 10:49 Intake & Output 02/29/20 03/01/20 03/01/20 18:59 06:59 18:59 Intake Total 640 340 125 Output Total 500 400 Balance 640 -160 -275 Weight 98.5 kg 97 kg Intake: IV 400 100 Piperacillin-Tazobactam 3 100 100 .375 gm In Sodium Chloride 0.9% 100 ml @ 25 mls/hr IVPB Q8HR [facility] Rx# :[id number] Sodium Chloride 0.9% 1, 300 000 ml @ 50 mls/hr IV . Q20H [facility] Rx#:[id number] Oral 240 240 125 Output: Urine 500 400 Other: Voiding Method Indwelling Catheter Indwelling Catheter - Exam PHYSICAL EXAMINATION: GENERAL: The patient is alert and oriented x3, not in any acute distress. Well developed, well nourished. HEENT: Pupils are round and equally reacting to light. EOMI. No scleral icterus. No conjunctival pallor. Normocephalic, atraumatic. No pharyngeal erythema. No thyromegaly. CARDIOVASCULAR: S1 and S2 present. No murmurs, rubs, or gallops. pacemaker generator on the left side of the chest which, with possible hematoma PULMONARY: Chest is clear to auscultation, no wheezing or crackles. ABDOMEN: Soft, nontender, nondistended, normoactive bowel sounds. No palpable organomegaly. MUSCULOSKELETAL: No joint swelling or deformity. EXTREMITIES: No cyanosis, clubbing, or pedal edema. NEUROLOGICAL: Gross neurological examination did not reveal any focal deficits. SKIN: Is to sacral decubitus ulcers mentionable and redness in the right upper extremity and swelling resolved - Labs CBC & Chem 7: 03/01/20 07:48 03/01/20 07:48 Labs: Abnormal Lab Results - Last 24 Hours (Table) 03/01/20 03/01/20 Range/Units 07:48 07:48 RBC 2.87 L (4.30-5.90) m/uL Hgb 9.2 L D (13.0-17.5) gm/dL Hct 28.1 L (39.0-53.0) % RDW 15.6 H (11.5-15.5) % Sodium 146 H (137-145) mmol/L Potassium 2.5 L* (3.5-5.1) mmol/L Chloride 113 H (98-107) mmol/L BUN 22 H (9-20) mg/dL Creatinine 1.52 H (0.66-1.25) mg/dL Glucose 123 H (74-99) mg/dL Calcium 7.9 L (8.4-10.2) mg/dL Assessment and Plan Plan: -Status post cardiac arrest and CPR with immediate recovery. With episodes of bradycardia with atrial fibrillation and nonsustained VT, patient is status post pacemaker and single-chamber AICD placement. Patient the probably has a postprocedural hematoma in the chest hemoglobin did drop by 2 points patient is more being monitored and patient's anticoagulation is on hold -Swelling of the right upper extremity which resolved an ultrasound is negative for DVT or superficial thrombosis. Patient's creatinine went up because of which had this can he vancomycin as there is no clear evidence that patient has cellulitis. She and is on ceftezolin Zosyn will be discontinued -Acute hypoxic respiratory failure needing intubation and mechanical ventilation secondary to chronic pulmonary arrest patient is presently extubated patient is extubated on 02/27/2020 -Recent history of severe bradycardia (related to Chronic Atrial fibrillation with) secondary to hyperkalemia, -Acute on chronic kidney injury : Acute renal failure secondary to prerenal azotemia from heart failure was receiving IV Lasix creatinine remains stable today. -History of nonsustained ventricular tachycardia -Atrial fibrillation with bradycardia, patient's Lovenox was discontinued which is appropriate constraining worsening creatinine. -Generalized weaknessin -Anemia, normocytic possibly multifactorial -history of CAD -CHF with chronic diastolic dysfunction with acute exacerbation patient is on IV Lasix at this time -History of COPD, asthma -Hypertension -Hyperlipidemia -Coronary artery disease with history of CABG in the past -History of right lung cancer with wedge resection severe pulmonary hypertension -Chronic kidney disease stage III: Etiology is not known
--- NOTE | 2020-03-01 13:51 | CDI ---
Documentation Clarification Form Date: 03/01/2020 01:21:45 PM From: Jammie Cancino RN CCDS Admit Date: 02/25/2020 02:55:00 PM Patient Name: Khanh Mahmood Visit Number: [id number] Discharge Date: ATTENTION: The Clinical Documentation Specialists (CDI) and [facility] Coding Staff appreciate your assistance in clarifying documentation. Please respond to the clarification below the line at the bottom and electronically sign. The CDI & [facility] Coding staff will review the response and follow-up if needed. Please note: Queries are made part of the Legal Health Record. If you have any questions, please contact the author of this message via ITS. Dr. Ravi Dunaway Post procedural hematoma in the chest is documented in the Internal Medicine Progress note 03/01/20 Patients Admitting Diagnosis: S/P Cardiac arrest; Atrial Fibrillation with Bradycardia Procedure performed: Permanent single-chamber pacemaker from left infraclavicular approach. History/Risk Factors: 79 y/o male presents to the ED via EMS from ECF s/p cardiac arrest. Medical history: Anemia, Afib; Bradycardia, CHF, HTN, CKD III Clinical Indicators: LABS: 02/27: Hgb 11.3; PLT: 56 03/01: Hgb 9.2; PLT 46 Cardiology Progress note 02/29/20 He does report some tenderness at the pacemaker site. He does have a hematoma at his pacemaker site. Internal Medicine 03/01 Patient probably has a hematoma on the low side of the chest and there is a drop in Hemoglobin by 2 points because of which are cardiology wanted to monitor the patient with repeat hemoglobin tomorrow. Medication: 02/24 Lovenox 100mg SQ HS d/c after 02/26 dose. 02/27 Lovenox SQ 40mg x1 Treatment: Cardiology Progress note 02/28 Hold pressure to hematoma site, then apply pressure dressing. Continue to hold Eliquis due to hematoma. In order to accurately reflect this patients severity of illness, please clarify if the Hematoma: -is a complication of surgical procedure -is an expected outcome of the surgical procedure -is related to co-morbid condition(s) of -Other please specify -Unable to determine Documented in Cardiology Progress Note 03/01 [employer] Fernandez: * Postprocedural hematoma at pacemaker site, an unexpected but potential outcome of the surgical procedure in view of patient's thrombocytopenia Acute blood loss anemia (Last Revision: April 2019) DARRIOND
--- NOTE | 2020-03-01 14:05 | P.PN ---
Subjective Progress Note Date: 03/01/20 HISTORY OF PRESENT ILLNESS: Patient examined this morning at bedside. He is status post permanent single-chamber pacemaker with Dr. Dunaway. Postop day #2. Patient denies chest pain or pressure. He denies shortness of breath. He continues to report some mild tenderness at his pacemaker site. Patient has a small residual hematoma at the pacemaker site. Platelet count 46. Hemoglobin 9.2, down from 11.3. Potassium 2.5. His Eliquis remains on hold. PHYSICAL EXAM: VITAL SIGNS: Reviewed. GENERAL: Well-developed in no acute distress. NECK: Supple. No JVD or thyromegaly LUNGS: Respirations even and unlabored. Lungs diminished with crackles to the bilateral bases HEART: Regular rate and rhythm. S1 and S2 heard. Pacemaker site to left chest wall with hematoma noted. EXTREMITIES: Normal range of motion. No clubbing or cyanosis. Peripheral pulses intact. 1-2+ bilateral lower extremity edema ASSESSMENT: Acute cardiac arrest Acute hypoxic respiratory failure Severe bradycardia, s/p PPM insertion Chronic persistent atrial fibrillation COPD Coronary artery disease with previous CABG Thrombocytopenia Postprocedural hematoma at pacemaker site, an unexpected but potential outcome of the surgical procedure in view of patient's thrombocytopenia Acute blood loss anemia PLAN: Continue to hold Eliquis Monitor hemoglobin Monitor pacemaker site Decrease Lasix to 40mg IV daily Further recommendations pending patient course Nurse practitioner note has been reviewed by physician. Signing provider agrees with the documented findings, assessment, and plan of care. Objective - Vital Signs Vital signs: Vital Signs Temp 98.4 F 03/01/20 03:50 Pulse 75 03/01/20 10:58 Resp 18 03/01/20 03:50 BP 134/62 03/01/20 03:50 Pulse Ox 96 03/01/20 10:49 Intake & Output 02/29/20 03/01/20 03/01/20 18:59 06:59 18:59 Intake Total 640 340 125 Output Total 500 400 Balance 640 -160 -275 Weight 98.5 kg 97 kg Intake: IV 400 100 Piperacillin-Tazobactam 3 100 100 .375 gm In Sodium Chloride 0.9% 100 ml @ 25 mls/hr IVPB Q8HR [facility] Rx# :[id number] Sodium Chloride 0.9% 1, 300 000 ml @ 50 mls/hr IV . Q20H [facility] Rx#:[id number] Oral 240 240 125 Output: Urine 500 400 Other: Voiding Method Indwelling Catheter Indwelling Catheter - Labs CBC & Chem 7: 03/01/20 07:48 03/01/20 07:48 Labs: Abnormal Lab Results - Last 24 Hours (Table) 03/01/20 03/01/20 Range/Units 07:48 07:48 RBC 2.87 L (4.30-5.90) m/uL Hgb 9.2 L D (13.0-17.5) gm/dL Hct 28.1 L (39.0-53.0) % RDW 15.6 H (11.5-15.5) % Plt Count 46 L (150-450) k/uL Sodium 146 H (137-145) mmol/L Potassium 2.5 L* (3.5-5.1) mmol/L Chloride 113 H (98-107) mmol/L BUN 22 H (9-20) mg/dL Creatinine 1.52 H (0.66-1.25) mg/dL Glucose 123 H (74-99) mg/dL Calcium 7.9 L (8.4-10.2) mg/dL
[2020-03-01] MEDS: POTASSIUM CHLORIDE 10 MEQ in WATER FOR INJECTION 1 100ML.BAG IVPB SCH ×4 (17:25→23:56)
[2020-03-01] MEDS: MULTIVITAMINS, THERA 1 EACH TAB PO SCH (17:26)
[2020-03-01] MEDS: FOLIC ACID 1 MG TAB PO SCH (17:26)
[2020-03-01] MEDS: ASCORBIC ACID 500 MG TAB PO SCH (17:26)
[2020-03-01] MEDS: ATORVASTATIN 10 MG TAB PO SCH (21:33)
[2020-03-02 00:22] LABS: Glucose,Whole Blood 169 mg/dL (75-99)
[2020-03-02] MEDS: POTASSIUM CHLORIDE 10 MEQ in WATER FOR INJECTION 1 100ML.BAG IVPB SCH ×2 (01:02→02:17)
[2020-03-02] MEDS: PANTOPRAZOLE 40 MG TABLET PO SCH (05:58)
[2020-03-02] MEDS: SYMBICORT 160-4.5 MCG INHALER INHALATION SCH ×2 (07:50→19:37)
[2020-03-02] MEDS: IPRATROPIUM-ALBUTEROL 3 ML NEB INHALATION SCH ×4 (07:53→19:37)
[2020-03-02 08:25] LABS: HCT 26.1 % (39.0-53.0); HGB 8.6 gm/dL (13.0-17.5); Hypochromasia Slight; MCH 32.5 pg (25.0-35.0); MCHC 32.9 g/dL (31.0-37.0); MCV 98.6 fL (80.0-100.0); Macrocytosis Slight; RBC 2.65 m/uL (4.30-5.90); RDW 15.6 % (11.5-15.5); WBC 7.9 k/uL (3.8-10.6)
[2020-03-02 08:27] LABS: Platelet Count 49 k/uL (150-450)
[2020-03-02 08:35] LABS: Calcium 7.9 mg/dL (8.4-10.2)
[2020-03-02] MEDS ORDERED: Potassium Replacement Protocol 1 EACH MISC MISCELLANE PRN (08:38)
[2020-03-02] MEDS: PIPERACILLIN-TAZOBACTAM 3.375 GM in SODIUM CHLORIDE 0.9% 100 ML IVPB SCH ×2 (08:46→17:32)
[2020-03-02] MEDS: TAMSULOSIN 0.4 MG CAP.ER.24H PO SCH ×2 (08:46→17:33)
[2020-03-02] MEDS: FERROUS SULFATE 325 MG TAB PO SCH ×3 (08:46→17:33)
[2020-03-02] MEDS: POTASSIUM CHLORIDE ER 20 MEQ TAB.ER PO SCH ×2 (08:46→13:01)
[2020-03-02] MEDS: ISOSORBIDE MONONITRATE ER 30 MG TAB.ER.24H PO SCH ×2 (08:46→17:33)
[2020-03-02] MEDS: THEOPHYLLINE 24 HOUR 200 MG CAP.ER.24H PO SCH (08:46)
[2020-03-02] MEDS ORDERED: FUROSEMIDE 10 MG/ML 4 ML VIAL IV SCH (09:00)
--- NOTE | 2020-03-02 10:16 | P.PN ---
Subjective 79 years old male with multiple medical problems as below. He was recently in this hospital twice, he was discharged on severe bradycardia secondary to hyperkalemia during which time he did not need pacemaker and director specialty and cleared him for discharge while avoiding any potassium sparing drugs like Collins inhibitors, Aldactone or potassium supplements. He was discharged in a stable condition back to his snf where he is finishing his rehab treatment. This is patient is intubated so it could not provide information and it was obtained from the records and staff. It looks like the patient became unresponsive found was an snf and CPR was initiated and eventually patient got intubated and transferred to emergency room by EMS, he was already intubated and currently he is on mechanical ventilation. There was a concern for a systolic and cardiac arrest. When I saw the patient in the ICU he was still intubated however he was some more awake and moving his arms and open his eyes spontaneously but then he goes back to sleep. He is kept sedated and CLOSELY by the pulmonary/critical care team. His heart rate now is bradycardic at 50s and director specialty team were consulted 02/27/2020 Patient is extubated patient is presently on his Lanoxin does have swelling of the right thumb along with redness local is of temperature and there is a localized swelling just distal to the elbow appears to be previous IV line site. We will obtain ultrasound of that area patient will be started on vancomycin had history of MRSA in the past patient does have stage II decubitus ulceration which although doesn't appear to be infected. Patient is presently in atrial fibrillation with heart rate of 44. Cardiology evaluated the patient then not recommending any pacemaker placement at this time. Patient initially presented with profound bradycardia and the patient had a cardiac arrest at that time. Patient is negative for covid19. 02/28/2020 Patient had episodes of went to tachycardia because of which patient will un dergo pacemaker implantation. Patient creatinine went up to 1.55 because of which were dyspnea vancomycin) right upper extremity redness significant improved ultrasound did not show any thrombosis or thrombophlebitis, since there is no clear evidence that the patient has cellulitis or disc any vancomycin considering that patient kidney function is bit worse compared to yesterday. Patient remains on IV Lasix. 02/29/2020 Patient had a pacemaker and single-chamber AICD. Patient respiratory status improved still has some crackles in the lung exam still has infiltrate on the chest x-ray patient still remains on IV Lasix patient also requirements have gone down and is presently on 2 L of oxygen. She didn't does have cough feeling much better. 03/01/2020 Patient the will probably has a hematoma on the low side of the chest and there is drop in hemoglobin by 2 points because of which are cardiology wanted to monitor the patient with repeat hemoglobin tomorrow. Patient Lasix dose was als o decreased to 40 mg daily patient underwent speech therapy evaluation. Patient remains on Zosyn may not require any antibiotics upon discharge. Patient's serum creatinine remains stable at 1.5. Patient looks much better. 03/02/2020 Patient hemoglobin is still down to 8.6 because of which cardiology is according monitoring for his hematoma for 1 more day. Patient is from snf possibly patient will be discharged on Wednesday. Patient's sodium is bit on the higher side 147 remains on Lasix. Patient's creatinine continued to get better and presently 1.39 patient is on 40 mg IV Lasix at this time. Potassium is low because of Lasix which will be replaced by protocol Constitutional: Denied any fatigue denied any fever. Cardio vascular: denied any chest pain, palpitations Gastrointestinal denied any nausea vomiting Pulmonary: Denied any shortness of breath cough Neurologic denied any new focal deficits All inpatient medications were reviewed and appropriate changes in these me dications as dictated in the interval history and assessment and plan. Objective - Vital Signs Vital signs: Vital Signs Temp 97.6 F 03/02/20 00:00 Pulse 72 03/02/20 08:05 Resp 18 03/02/20 04:00 BP 146/67 03/02/20 04:00 Pulse Ox 100 03/02/20 04:00 Intake & Output 03/01/20 03/02/20 03/02/20 18:59 06:59 18:59 Intake Total 485 1000 240 Output Total 1000 475 Balance -515 525 240 Weight 98 kg Intake: IV 750 Piperacillin-Tazobactam 3 200 .375 gm In Sodium Chloride 0.9% 100 ml @ 25 mls/hr IVPB Q8HR [facility] Rx# :[id number] Sodium Chloride 0.9% 1, 550 000 ml @ 50 mls/hr IV . Q20H [facility] Rx#:[id number] Intake, IV Titration 100 Amount Potassium Chloride 10 meq 100 In Water For Injection 1 100ml.bag @ 100 mls/hr IVPB Q1HR [facility] Rx#: [id number] Oral 485 150 240 Output: Urine 1000 475 Other: Voiding Method Indwelling Catheter Indwelling Catheter # Bowel Movements 0 - Exam PHYSICAL EXAMINATION: GENERAL: The patient is alert and oriented x3, not in any acute distress. Well developed, well nourished. HEENT: Pupils are round and equally reacting to light. EOMI. No scleral icterus. No conjunctival pallor. Normocephalic, atraumatic. No pharyngeal erythema. No thyromegaly. CARDIOVASCULAR: S1 and S2 present. No murmurs, rubs, or gallops. pacemaker generator on the left side of the chest with hematoma. Size remains the same as yesterday PULMONARY: Chest is clear to auscultation, no wheezing or crackles. ABDOMEN: Soft, nontender, nondistended, normoactive bowel sounds. No palpable organomegaly. MUSCULOSKELETAL: No joint swelling or deformity. EXTREMITIES: No cyanosis, clubbing, or pedal edema. NEUROLOGICAL: Gross neurological examination did not reveal any focal deficits. SKIN: Is to sacral decubitus ulcers mentionable and redness in the right upper extremity and swelling resolved - Labs CBC & Chem 7: 03/02/20 07:39 03/02/20 07:39 Labs: Abnormal Lab Results - Last 24 Hours (Table) 03/01/20 03/02/20 03/02/20 Range/Units 07:48 00:10 07:39 RBC 2.65 L (4.30-5.90) m/uL Hgb 8.6 L (13.0-17.5) gm/dL Hct 26.1 L (39.0-53.0) % RDW 15.6 H (11.5-15.5) % Plt Count 46 L 49 L (150-450) k/uL Sodium (137-145) mmol/L Potassium (3.5-5.1) mmol/L Chloride (98-107) mmol/L Carbon Dioxide (22-30) mmol/L Creatinine (0.66-1.25) mg/dL Glucose (74-99) mg/dL POC Glucose (mg/dL) 169 H (75-99) mg/dL Calcium (8.4-10.2) mg/dL 03/02/20 Range/Units 07:39 RBC (4.30-5.90) m/uL Hgb (13.0-17.5) gm/dL Hct (39.0-53.0) % RDW (11.5-15.5) % Plt Count (150-450) k/uL Sodium 147 H (137-145) mmol/L Potassium 3.0 L (3.5-5.1) mmol/L Chloride 113 H (98-107) mmol/L Carbon Dioxide 31 H (22-30) mmol/L Creatinine 1.39 H (0.66-1.25) mg/dL Glucose 130 H (74-99) mg/dL POC Glucose (mg/dL) (75-99) mg/dL Calcium 7.9 L (8.4-10.2) mg/dL Assessment and Plan Plan: -Status post cardiac arrest and CPR with immediate recovery. With episodes of bradycardia with atrial fibrillation and nonsustained VT, patient is status post pacemaker and single-chamber AICD placement. Patient the probably has a postprocedural hematoma in the chest hemoglobin did drop by 2 points patient is more being monitored and patient's anticoagulation is on hold -Swelling of the right upper extremity which resolved an ultrasound is negative for DVT or superficial thrombosis. Patient's creatinine went up because of which had this can he vancomycin as there is no clear evidence that patient has cellulitis. Patient finished a course of Zosyn probably will not need any more antibiotics. -Acute hypoxic respiratory failure needing intubation and mechanical ventilation secondary to chronic pulmonary arrest patient is presently extubated patient is extubated on 02/27/2020 -Recent history of severe bradycardia (related to Chronic Atrial fibrillation with) secondary to hyperkalemia, -Acute on chronic kidney injury : Acute renal failure secondary to prerenal azotemia from heart failure was receiving IV Lasix creatinine continue to improve with IV Lasix -hypokalemia secondary to Lasix potassium will be replaced -History of nonsustained ventricular tachycardia -Atrial fibrillation with bradycardia, patient's Lovenox was discontinued which is appropriate constraining worsening creatinine. -Generalized weakness -Anemia, normocytic possibly multifactorial -history of CAD -CHF with chronic diastolic dysfunction with acute exacerbation patient is on IV Lasix at this time -History of COPD, asthma -Hypertension -Hyperlipidemia -Coronary artery disease with history of CABG in the past -History of right lung cancer with wedge resection severe pulmonary hypertension -Chronic kidney disease stage III: Etiology is not known
--- NOTE | 2020-03-02 11:59 | P.PN ---
Subjective Progress Note Date: 03/02/20 HISTORY OF PRESENT ILLNESS: Patient examined this morning at bedside. He is status post permanent single-chamber pacemaker with Dr. Dunaway. Postop day #3. Patient denies chest pain or pressure. He denies shortness of breath. Patient has a small residual hematoma at the pacemaker site. Platelet count 49. Hemoglobin 8.6. His Eliquis remains on hold. PHYSICAL EXAM: VITAL SIGNS: Reviewed. GENERAL: Well-developed in no acute distress. NECK: Supple. No JVD or thyromegaly LUNGS: Respirations even and unlabored. Lungs diminished. HEART: Regular rate and rhythm. S1 and S2 heard. Pacemaker site to left chest wall with small hematoma noted. EXTREMITIES: Normal range of motion. No clubbing or cyanosis. Peripheral pulses intact. 1+ bilateral lower extremity edema ASSESSMENT: Acute cardiac arrest Acute hypoxic respiratory failure Severe bradycardia, s/p PPM insertion Chronic persistent atrial fibrillation COPD Coronary artery disease with previous CABG Acute exacerbation of chronic diastolic congestive heart failure Thrombocytopenia Postprocedural hematoma at pacemaker site, an unexpected but potential outcome of the surgical procedure in view of patient's thrombocytopenia Acute blood loss anemia Hypokalemia PLAN: Continue to hold Eliquis. Monitor platelet count and hemoglobin. Recommend resuming Eliquis when platelet count is near 70,000 Change lasix to oral: 40mg daily Further recommendations pending patient course Nurse practitioner note has been reviewed by physician. Signing provider agrees with the documented findings, assessment, and plan of care. Objective - Vital Signs Vital signs: Vital Signs Temp 97.8 F 03/02/20 08:00 Pulse 72 03/02/20 08:05 Resp 19 03/02/20 08:00 BP 132/60 03/02/20 08:00 Pulse Ox 99 03/02/20 08:00 Intake & Output 03/01/20 03/02/20 03/02/20 18:59 06:59 18:59 Intake Total 485 1000 240 Output Total 1000 475 Balance -515 525 240 Weight 98 kg Intake: IV 750 Piperacillin-Tazobactam 3 200 .375 gm In Sodium Chloride 0.9% 100 ml @ 25 mls/hr IVPB Q8HR [facility] Rx# :[id number] Sodium Chloride 0.9% 1, 550 000 ml @ 50 mls/hr IV . Q20H [facility] Rx#:[id number] Intake, IV Titration 100 Amount Potassium Chloride 10 meq 100 In Water For Injection 1 100ml.bag @ 100 mls/hr IVPB Q1HR [facility] Rx#: [id number] Oral 485 150 240 Output: Urine 1000 475 Other: Voiding Method Indwelling Catheter Indwelling Catheter Indwelling Catheter # Bowel Movements 0 0 - Labs CBC & Chem 7: 03/02/20 07:39 03/02/20 07:39 Labs: Abnormal Lab Results - Last 24 Hours (Table) 03/01/20 03/02/20 03/02/20 Range/Units 07:48 00:10 07:39 RBC 2.65 L (4.30-5.90) m/uL Hgb 8.6 L (13.0-17.5) gm/dL Hct 26.1 L (39.0-53.0) % RDW 15.6 H (11.5-15.5) % Plt Count 46 L 49 L (150-450) k/uL Sodium (137-145) mmol/L Potassium (3.5-5.1) mmol/L Chloride (98-107) mmol/L Carbon Dioxide (22-30) mmol/L Creatinine (0.66-1.25) mg/dL Glucose (74-99) mg/dL POC Glucose (mg/dL) 169 H (75-99) mg/dL Calcium (8.4-10.2) mg/dL 03/02/20 Range/Units 07:39 RBC (4.30-5.90) m/uL Hgb (13.0-17.5) gm/dL Hct (39.0-53.0) % RDW (11.5-15.5) % Plt Count (150-450) k/uL Sodium 147 H (137-145) mmol/L Potassium 3.0 L (3.5-5.1) mmol/L Chloride 113 H (98-107) mmol/L Carbon Dioxide 31 H (22-30) mmol/L Creatinine 1.39 H (0.66-1.25) mg/dL Glucose 130 H (74-99) mg/dL POC Glucose (mg/dL) (75-99) mg/dL Calcium 7.9 L (8.4-10.2) mg/dL
[2020-03-02] MEDS: cycloSPORINE 0.05% OPHTH 0.4 ML DROPERETTE BOTH EYES SCH (13:01)
[2020-03-02] MEDS: THIAMINE 100 MG TAB PO SCH (13:08)
[2020-03-02] MEDS: MULTIVITAMINS, THERA 1 EACH TAB PO SCH (17:33)
[2020-03-02] MEDS: ASCORBIC ACID 500 MG TAB PO SCH (17:33)
[2020-03-02] MEDS: FOLIC ACID 1 MG TAB PO SCH (17:33)
[2020-03-02] MEDS: ATORVASTATIN 10 MG TAB PO SCH (21:16)
[2020-03-03] MEDS: PIPERACILLIN-TAZOBACTAM 3.375 GM in SODIUM CHLORIDE 0.9% 100 ML IVPB SCH ×3 (00:02→15:12)
[2020-03-03] MEDS: cycloSPORINE 0.05% OPHTH 0.4 ML DROPERETTE BOTH EYES SCH ×3 (00:02→23:10)
[2020-03-03] MEDS: PANTOPRAZOLE 40 MG TABLET PO SCH (05:21)
[2020-03-03] MEDS: SYMBICORT 160-4.5 MCG INHALER INHALATION SCH ×2 (07:30→21:03)
[2020-03-03] MEDS: IPRATROPIUM-ALBUTEROL 3 ML NEB INHALATION SCH ×4 (07:30→21:03)
--- NOTE | 2020-03-03 07:45 | P.PN ---
Subjective 79 years old male with multiple medical problems as below. 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 He was discharged in a stable condition back to his snf where he is finishing his rehab treatment. This is patient is intubated so it could not provide information and it was obtained from the records and staff. It looks like the patient became unresponsive found was an snf and CPR was initiated and eventually patient got intubated and transferred to emergency room by EMS, he was already intubated and currently he is on mechanical ventilation. There was a concern for a systolic and cardiac arrest. When I saw the patient in the ICU he was still intubated however he was some more awake and moving his arms and open his eyes spontaneously but then he goes back to sleep. He is kept sedated and CLOSELY by the pulmonary/critical care team. His heart rate now is bradycardic at 50s and fender mechanic apprentice team were consulted 02/27/2020 Patient is extubated patient is presently on his Lanoxin does have swelling of the right thumb along with redness local is of temperature and there is a localized swelling just distal to the elbow appears to be previous IV line site. We will obtain ultrasound of that area patient will be started on vancomycin had history of MRSA in the past patient does have stage II decubitus ulceration which although doesn't appear to be infected. Patient is presently in atrial fibrillation with heart rate of 44. Cardiology evaluated the patient then not recommending any pacemaker placement at this time. Patient initially presented with profound bradycardia and the patient had a cardiac arrest at that time. Patient is negative for covid19. 02/28/2020 Patient had episodes of went to tachycardia because of which patient will un dergo pacemaker implantation. Patient creatinine went up to 1.55 because of which were dyspnea vancomycin) right upper extremity redness significant improved ultrasound did not show any thrombosis or thrombophlebitis, since there is no clear evidence that the patient has cellulitis or disc any vancomycin considering that patient kidney function is bit worse compared to yesterday. Patient remains on IV Lasix. 02/29/2020 Patient had a pacemaker and single-chamber AICD. Patient respiratory status improved still has some crackles in the lung exam still has infiltrate on the chest x-ray patient still remains on IV Lasix patient also requirements have gone down and is presently on 2 L of oxygen. She didn't does have cough feeling much better. 03/01/2020 Patient the will probably has a hematoma on the low side of the chest and there is drop in hemoglobin by 2 points because of which are cardiology wanted to monitor the patient with repeat hemoglobin tomorrow. Patient Lasix dose was als o decreased to 40 mg daily patient underwent speech therapy evaluation. Patient remains on Zosyn may not require any antibiotics upon discharge. Patient's serum creatinine remains stable at 1.5. Patient looks much better. 03/02/2020 Patient hemoglobin is still down to 8.6 because of which cardiology is according monitoring for his hematoma for 1 more day. Patient is from snf possibly patient will be discharged on Wednesday. Patient's sodium is bit on the higher side 147 remains on Lasix. Patient's creatinine continued to get better and presently 1.39 patient is on 40 mg IV Lasix at this time. Potassium is low because of Lasix which will be replaced by protocol. 03/03/2020 I do not have any laboratory data available at this time since patient's platelets are low cardiology wanted to monitor him 1 more day repeat labs today and if her platelet count is about 70,000 will resume on Eliquis. Patient denied any symptoms at this time, possibility of discharge tomorrow to subacute rehabilitation Constitutional: Denied any fatigue denied any fever. Cardio vascular: denied any chest pain, palpitations Gastrointestinal denied any nausea vomiting Pulmonary: Denied any shortness of breath cough Neurologic denied any new focal deficits All inpatient medications were reviewed and appropriate changes in these medications as dictated in the interval history and assessment and plan. Objective - Vital Signs Vital signs: Vital Signs Temp 98.4 F 03/03/20 04:00 Pulse 71 03/03/20 04:00 Resp 18 03/03/20 04:00 BP 130/53 03/03/20 04:00 Pulse Ox 97 03/03/20 04:00 Intake & Output 03/02/20 03/03/20 03/03/20 18:59 06:59 18:59 Intake Total 1620 150 Output Total 500 300 Balance 1120 -150 Weight 100.5 kg Intake: IV 240 100 0.9 140 Piperacillin-Tazobactam 3 100 .375 gm In Sodium Chloride 0.9% 100 ml @ 25 mls/hr IVPB Q8HR [facility] Rx# :[id number] Sodium Chloride 0.9% 1, 100 000 ml @ 50 mls/hr IV . Q20H [facility] Rx#:[id number] Oral 1380 50 Output: Urine 500 300 Other: Voiding Method Indwelling Catheter Indwelling Catheter # Bowel Movements 0 1 1 - Exam PHYSICAL EXAMINATION: GENERAL: The patient is alert and oriented x3, not in any acute distress. Well developed, well nourished. HEENT: Pupils are round and equally reacting to light. EOMI. No scleral icterus. No conjunctival pallor. Normocephalic, atraumatic. No pharyngeal erythema. No thyromegaly. CARDIOVASCULAR: S1 and S2 present. No murmurs, rubs, or gallops. pacemaker generator on the left side of the chest with hematoma. Size remains the same as yesterday PULMONARY: Chest is clear to auscultation, no wheezing or crackles. ABDOMEN: Soft, nontender, nondistended, normoactive bowel sounds. No palpable organomegaly. MUSCULOSKELETAL: No joint swelling or deformity. EXTREMITIES: No cyanosis, clubbing, or pedal edema. NEUROLOGICAL: Gross neurological examination did not reveal any focal deficits. SKIN: Is to sacral decubitus ulcers mentionable and redness in the right upper extremity and swelling resolved - Labs CBC & Chem 7: 03/02/20 07:39 03/02/20 07:39 Labs: Abnormal Lab Results - Last 24 Hours (Table) 03/02/20 03/02/20 Range/Units 07:39 07:39 RBC 2.65 L (4.30-5.90) m/uL Hgb 8.6 L (13.0-17.5) gm/dL Hct 26.1 L (39.0-53.0) % RDW 15.6 H (11.5-15.5) % Plt Count 49 L (150-450) k/uL Sodium 147 H (137-145) mmol/L Potassium 3.0 L (3.5-5.1) mmol/L Chloride 113 H (98-107) mmol/L Carbon Dioxide 31 H (22-30) mmol/L Creatinine 1.39 H (0.66-1.25) mg/dL Glucose 130 H (74-99) mg/dL Calcium 7.9 L (8.4-10.2) mg/dL Assessment and Plan Plan: -Status post cardiac arrest and CPR with immediate recovery. With episodes of bradycardia with atrial fibrillation and nonsustained VT, patient is status post pacemaker and single-chamber AICD placement. Patient the probably has a postprocedural hematoma in the chest hemoglobin did drop by 2 points patient is more being monitored and patient's anticoagulation is on hold. Once the platelet count is about 70,000 plan is to start him back on anticoagulation possibility of discharge tomorrow -Swelling of the right upper extremity which resolved an ultrasound is negative for DVT or superficial thrombosis. Patient finished a course of Zosyn probably will not need any more antibiotics. -Acute hypoxic respiratory failure needing intubation and mechanical ventilation secondary to chronic pulmonary arrest patient is presently extubated patient is extubated on 02/27/2020 -Recent history of severe bradycardia (related to Chronic Atrial fibrillation with) secondary to hyperkalemia, -Acute on chronic kidney injury : Acute renal failure secondary to prerenal azotemia from heart failure was receiving IV Lasix creatinine continue to improve with IV Lasix -hypokalemia secondary to Lasix potassium will be replaced -History of nonsustained ventricular tachycardia -Atrial fibrillation with bradycardia, patient's Lovenox was discontinued which is appropriate constraining worsening creatinine. -Generalized weakness -Anemia, normocytic possibly multifactorial -history of CAD -CHF with chronic diastolic dysfunction with acute exacerbation patient is on IV Lasix at this time -History of COPD, asthma -Hypertension -Hyperlipidemia -Coronary artery disease with history of CABG in the past -History of right lung cancer with wedge resection severe pulmonary hypertension -Chronic kidney disease stage III: Etiology is not known
[2020-03-03] MEDS: THEOPHYLLINE 24 HOUR 200 MG CAP.ER.24H PO SCH (08:04)
[2020-03-03] MEDS: ISOSORBIDE MONONITRATE ER 30 MG TAB.ER.24H PO SCH ×2 (08:04→17:12)
[2020-03-03] MEDS: TAMSULOSIN 0.4 MG CAP.ER.24H PO SCH ×2 (08:04→17:12)
[2020-03-03] MEDS: THIAMINE 100 MG TAB PO SCH (08:04)
[2020-03-03] MEDS: FERROUS SULFATE 325 MG TAB PO SCH ×3 (08:04→17:12)
[2020-03-03] MEDS: FUROSEMIDE 40 MG TAB PO SCH (08:05)
[2020-03-03 11:23] LABS: Anisocytosis Slight; HCT 25.8 % (39.0-53.0); HGB 8.2 gm/dL (13.0-17.5); Hypochromasia Slight; MCH 31.5 pg (25.0-35.0); MCHC 31.8 g/dL (31.0-37.0); MCV 98.8 fL (80.0-100.0); Macrocytosis Slight; Mean Platelet Volume 11.2; RBC 2.61 m/uL (4.30-5.90); RDW 16.5 % (11.5-15.5); WBC 7.5 k/uL (3.8-10.6)
[2020-03-03 11:31] LABS: Platelet Count 58 k/uL (150-450)
[2020-03-03 11:33] LABS: Calcium 7.8 mg/dL (8.4-10.2)
[2020-03-03 11:46] LABS: Potassium 3.3 mmol/L (3.5-5.1)
--- NOTE | 2020-03-03 11:56 | P.PN ---
Subjective Progress Note Date: 03/03/20 HISTORY OF PRESENT ILLNESS: Patient examined this morning at bedside. He is status post permanent single-chamber pacemaker with Dr. Dunaway. Postop day #4. Patient denies chest pain or pressure. He denies shortness of breath. Patient has a small residual hematoma at the pacemaker site. Platelet count 58. Hemoglobin 8.2. His Eliquis remains on hold. PHYSICAL EXAM: VITAL SIGNS: Reviewed. GENERAL: Well-developed in no acute distress. NECK: Supple. No JVD or thyromegaly LUNGS: Respirations even and unlabored. Lungs diminished. HEART: Regular rate and rhythm. S1 and S2 heard. Pacemaker site to left chest wall with small hematoma noted. EXTREMITIES: Normal range of motion. No clubbing or cyanosis. Peripheral pulses intact. 1+ bilateral lower extremity edema ASSESSMENT: Acute cardiac arrest Acute hypoxic respiratory failure Severe bradycardia, s/p PPM insertion Chronic persistent atrial fibrillation COPD Coronary artery disease with previous CABG Acute exacerbation of chronic diastolic congestive heart failure Thrombocytopenia Postprocedural hematoma at pacemaker site, an unexpected but potential outcome of the surgical procedure in view of patient's thrombocytopenia Acute blood loss anemia Hypokalemia PLAN: Continue to hold Eliquis. Monitor platelet count and hemoglobin. Recommend resuming Eliquis when platelet count is near 70,000 Continue additional cardiac medications Continue supportive care Further recommendations pending patient course Nurse practitioner note has been reviewed by physician. Signing provider agrees with the documented findings, assessment, and plan of care. Objective - Vital Signs Vital signs: Vital Signs Temp 97.7 F 03/03/20 08:11 Pulse 91 03/03/20 11:10 Resp 18 03/03/20 08:11 BP 126/57 03/03/20 08:11 Pulse Ox 98 03/03/20 08:11 Intake & Output 03/02/20 03/03/20 03/03/20 18:59 06:59 18:59 Intake Total 1620 150 Output Total 500 300 Balance 1120 -150 Weight 100.5 kg Intake: IV 240 100 0.9 140 Piperacillin-Tazobactam 3 100 .375 gm In Sodium Chloride 0.9% 100 ml @ 25 mls/hr IVPB Q8HR [facility] Rx# :[id number] Sodium Chloride 0.9% 1, 100 000 ml @ 50 mls/hr IV . Q20H [facility] Rx#:[id number] Oral 1380 50 Output: Urine 500 300 Other: Voiding Method Indwelling Catheter Indwelling Catheter # Bowel Movements 0 1 1 - Labs CBC & Chem 7: 03/03/20 10:53 03/03/20 10:53 Labs: Abnormal Lab Results - Last 24 Hours (Table) 03/03/20 03/03/20 Range/Units 10:53 10:53 RBC 2.61 L (4.30-5.90) m/uL Hgb 8.2 L (13.0-17.5) gm/dL Hct 25.8 L (39.0-53.0) % RDW 16.5 H (11.5-15.5) % Plt Count 58 L (150-450) k/uL Potassium 3.3 L (3.5-5.1) mmol/L Chloride 110 H (98-107) mmol/L Carbon Dioxide 31 H (22-30) mmol/L Glucose 113 H (74-99) mg/dL Calcium 7.8 L (8.4-10.2) mg/dL
[2020-03-03 14:36] VITALS: BMI 30.9
[2020-03-03] MEDS: POTASSIUM CHLORIDE ER 20 MEQ TAB.ER PO SCH (15:11)
[2020-03-03] MEDS: ASCORBIC ACID 500 MG TAB PO SCH (17:11)
[2020-03-03] MEDS: FOLIC ACID 1 MG TAB PO SCH (17:12)
[2020-03-03] MEDS: MULTIVITAMINS, THERA 1 EACH TAB PO SCH (17:12)
[2020-03-03] MEDS: ATORVASTATIN 10 MG TAB PO SCH (20:03)
[2020-03-04] MEDS: PANTOPRAZOLE 40 MG TABLET PO SCH (05:57)
[2020-03-04] MEDS: IPRATROPIUM-ALBUTEROL 3 ML NEB INHALATION SCH ×3 (08:01→15:19)
[2020-03-04] MEDS: SYMBICORT 160-4.5 MCG INHALER INHALATION SCH (08:01)
[2020-03-04 10:14] LABS: Calcium 7.9 mg/dL (8.4-10.2); Potassium 3.4 mmol/L (3.5-5.1)
[2020-03-04 10:39] LABS: Anisocytosis Slight; Basophils % (A) 0 %; Eosinophils # (A) 0.1 k/uL (0-0.7); Eosinophils % (A) 1 %; HCT 28.3 % (39.0-53.0); HGB 9.1 gm/dL (13.0-17.5); Hypochromasia Slight; Lymphocytes # (A) 1.2 k/uL (1.0-4.8); Lymphocytes % (A) 14 %; MCH 31.5 pg (25.0-35.0); MCHC 32.1 g/dL (31.0-37.0); MCV 98.2 fL (80.0-100.0); Macrocytosis Slight; Mean Platelet Volume 10.5; Monocytes # (A) 0.4 k/uL (0-1.0); Monocytes % (A) 5 %; Neutrophils # (A) 6.5 k/uL (1.3-7.7); Neutrophils % (A) 77 %; RBC 2.88 m/uL (4.30-5.90); RDW 17.2 % (11.5-15.5); WBC 8.4 k/uL (3.8-10.6)
[2020-03-04 10:49] LABS: Platelet Count 85 k/uL (150-450)
--- NOTE | 2020-03-04 11:48 | P.DS ---
Providers Date of admission: 02/25/20 14:55 Attending physician: Whitney Long MD Consults: 02/25/20 14:55 Consult Physician Stat Consulting Provider: Rebecca Naik Consult Reason/Comments: Acute respiratory failure, return to spontaneous circulation Do you want consulting provider notified?: Already Contacted Consult Physician Urgent Consulting Provider: Priyank Chamorro Consult Reason/Comments: CPR, return of spontaneous circulation, acute respiratory failure Do you want consulting provider notified?: Already Contacted Primary care physician: [facility] Course: 79 years old male with multiple medical problems as below. 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 He was discharged in a stable condition back to his [facility] where he is finishing his rehab treatment. This is patient is intubated so it could not provide information and it was obtained from the records and staff. It looks like the patient became unresponsive found was an [facility] and CPR was initiated and eventually patient got intubated and transferred to emergency room by EMS, he was already intubated and currently he is on mechanical ventilation. There was a concern for a systolic and cardiac arrest. When I saw the patient in the ICU he was still intubated however he was some more awake and moving his arms and open his eyes spontaneously but then he goes back to sleep. He is kept sedated and CLOSELY by the pulmonary/critical care team. His heart rate now is bradycardic at 50s and right of way buyer team were consulted 02/27/2020 Patient is extubated patient is presently on his Lanoxin does have swelling of the right thumb along with redness local is of temperature and there is a localized swelling just distal to the elbow appears to be previous IV line site. We will obtain ultrasound of that area patient will be started on vancomycin had history of MRSA in the past patient does have stage II decubitus ulceration which although doesn't appear to be infected. Patient is presently in atrial fibrillation with heart rate of 44. Cardiology evaluated the patient then not recommending any pacemaker placement at this time. Patient initially presented with profound bradycardia and the patient had a cardiac arrest at that time. Patient is negative for covid19. 02/28/2020 Patient had episodes of went to tachycardia because of which patient will undergo pacemaker implantation. Patient creatinine went up to 1.55 because of which were dyspnea vancomycin) right upper extremity redness significant improved ultrasound did not show any thrombosis or thrombophlebitis, since there is no clear evidence that the patient has cellulitis or disc any vancomycin considering that patient kidney function is bit worse compared to yesterday. Patient remains on IV Lasix. 02/29/2020 Patient had a pacemaker and single-chamber AICD. Patient respiratory status improved still has some crackles in the lung exam still has infiltrate on the chest x-ray patient still remains on IV Lasix patient also requirements have gone down and is presently on 2 L of oxygen. She didn't does have cough feeling much better. 03/01/2020 Patient the will probably has a hematoma on the low side of the chest and there is drop in hemoglobin by 2 points because of which are cardiology wanted to monitor the patient with repeat hemoglobin tomorrow. Patient Lasix dose was also decreased to 40 mg daily patient underwent speech therapy evaluation. Patient remains on Zosyn may not require any antibiotics upon discharge. Patient's serum creatinine remains stable at 1.5. Patient looks much better. 03/02/2020 Patient hemoglobin is still down to 8.6 because of which cardiology is according monitoring for his hematoma for 1 more day. Patient is from [facility] possibly patient will be discharged on Wednesday. Patient's sodium is bit on the higher side 147 remains on Lasix. Patient's creatinine continued to get better and presently 1.39 patient is on 40 mg IV Lasix at this time. Potassium is low because of Lasix which will be replaced by protocol. 03/03/2020 I do not have any laboratory data available at this time since patient's platelets are low cardiology wanted to monitor him 1 more day repeat labs today and if her platelet count is about 70,000 will resume on Eliquis. Patient denied any symptoms at this time, possibility of discharge tomorrow to subacute rehabilitation PHYSICAL EXAMINATION: GENERAL: The patient is alert and oriented x3, not in any acute distress. Well developed, well nourished. HEENT: Pupils are round and equally reacting to light. EOMI. No scleral icterus. No conjunctival pallor. Normocephalic, atraumatic. No pharyngeal erythema. No thyromegaly. CARDIOVASCULAR: S1 and S2 present. No murmurs, rubs, or gallops. pacemaker generator on the left side of the chest with hematoma. Size remains the same as yesterday PULMONARY: Chest is clear to auscultation, no wheezing or crackles. ABDOMEN: Soft, nontender, nondistended, normoactive bowel sounds. No palpable organomegaly. MUSCULOSKELETAL: No joint swelling or deformity. EXTREMITIES: No cyanosis, clubbing, or pedal edema. NEUROLOGICAL: Gross neurological examination did not reveal any focal deficits. SKIN: Is to sacral decubitus ulcers mentionable and redness in the right upper extremity and swelling resolved Assessment and Plan Plan: -Status post cardiac arrest and CPR with immediate recovery. With episodes of bradycardia with atrial fibrillation and nonsustained VT, patient is status post pacemaker and single-chamber AICD placement. Patient the probably has a postprocedural hematoma in the chest. hemoglobin is stable now. Patient had acute blood loss anemia after the placement of AICD due to hematoma. Patient's platelet count is above 80,000 patient will be resumed on Eliquis today -Patient was recently hospitalized was discharged on Zyvox for cellulitis of the buttock, discussed with infectious disease is recommending continuation of antibiotics for 1 more week -Swelling of the right upper extremity which resolved an ultrasound is negative for DVT or superficial thrombosis. Patient will be discharged on Zyvox although there is no evidence of cellulitis of the right upper extremity -Acute hypoxic respiratory failure needing intubation and mechanical ventilation secondary to chronic pulmonary arrest patient is presently extubated patient is extubated on 02/27/2020 -Recent history of severe bradycardia (related to Chronic Atrial fibrillation with) secondary to hyperkalemia, -Acute on chronic kidney injury : Acute renal failure secondary to prerenal azotemia from heart failure. Patient has significant improvement in serum creatinine present serum creatinine is 1.2 patient will be discharged on oral Lasix and potassium supplementation -Atrial fibrillation with bradycardia, patient's Lovenox was discontinued which is appropriate constraining worsening creatinine. -Generalized weakness -Anemia, normocytic possibly multifactorial -history of CAD -CHF with chronic diastolic dysfunction with acute exacerbation. -History of COPD, asthma -Hypertension -Hyperlipidemia -Coronary artery disease with history of CABG in the past -History of right lung cancer with wedge resection severe pulmonary hypertension -Chronic kidney disease stage III: Etiology is not known Patient Condition at Discharge: Critical Plan - Discharge Summary New Discharge Prescriptions: New Furosemide [Lasix] 40 mg PO DAILY tab Continue Tiotropium 18 Mcg/Puff [Spiriva] 1 cap INHALATION RT-DAILY@0800 Nitroglycerin Sl Tabs [Nitrostat] 0.4 mg SL Q5M PRN PRN Reason: Chest Pain Ferrous Sulfate [Iron] 325 mg PO TID@0800,1200,1700 Isosorbide Mononitrate [Isosorbide Mononitrate ER] 30 mg PO BID@0800,1700 Ipratropium-Albuterol Nebulize [Duoneb 0.5 mg-3 mg/3 ml Soln] 3 ml INHALATION RT-QID PRN PRN Reason: Shortness Of Breath Apixaban [Eliquis] 2.5 mg PO BID@0800,1700 Budesonide-Formot 160-4.5 Mcg [Symbicort 160-4.5 Mcg Inhaler] 2 puff INHALATI ON RT-BID@0800,1700 Folic Acid 1 mg PO DAILY@1700 Ascorbic Acid [Vitamin C] 250 mg PO DAILY@1700 cycloSPORINE 0.05% OPHTH SOLN [Restasis] 1 drop BOTH EYES Q12H Multivitamins, Thera [Multivitamin (formulary)] 1 tab PO DAILY@1700 Thiamine [Vitamin B-1] 100 mg PO DAILY@1200 tab Acetaminophen Tab [Tylenol] 650 mg PO Q6H PRN PRN Reason: Mild Pain Or Fever > 100.5 bisacodyL [Bisacodyl] 10 mg RECTAL DAILY PRN PRN Reason: Constipation Ensure Clear 120 ml PO TID@0800,1200,1700 Magnesium Hydroxide [Milk of Magnesia Concentrate] 7,200 mg PO Q48H PRN PRN Reason: Constipation Magnesium Oxide [Mag-Ox] 400 mg PO BID@0800,1700 Na Phos,M-B/Na Phos,Di-Ba [Fleet Adult] 133 ml RECTAL DAILY PRN PRN Reason: Constipation Pantoprazole [Protonix] 40 mg PO DAILY@0600 Simvastatin [Zocor] 20 mg PO HS@2100 Tamsulosin HCl [Flomax] 0.4 mg PO BID@0800,1700 Theophylline 24 Hour [Fabrice-24] 200 mg PO DAILY@0800 bisacodyL [Dulcolax] 10 mg RECTAL DAILY PRN PRN Reason: Constipation Nystatin 100,000 Unit/ml Susp [Mycostatin Oral Susp] 5 ml PO QID Linezolid 600 mg PO Q12H #0 Discharge Medication List Tiotropium 18 Mcg/Puff [Spiriva] 1 cap INHALATION RT-DAILY@0800 07/13/13 [History] Nitroglycerin Sl Tabs [Nitrostat] 0.4 mg SL Q5M PRN 03/19/16 [History] Ferrous Sulfate [Iron] 325 mg PO TID@0800,1200,17011/09/17 [History] Isosorbide Mononitrate [Isosorbide Mononitrate ER] 30 mg PO BID@0800,17011/09/17 [History] Ipratropium-Albuterol Nebulize [Duoneb 0.5 mg-3 mg/3 ml Soln] 3 ml INHALATION RT-QID PRN 03/22/18 [History] Apixaban [Eliquis] 2.5 mg PO BID@0800,1700 09/27/18 [History] Budesonide-Formot 160-4.5 Mcg [Symbicort 160-4.5 Mcg Inhaler] 2 puff INHALATION RT-BID@0800,1700 09/25/19 [History] Folic Acid 1 mg PO DAILY@169909/25/19 [History] Ascorbic Acid [Vitamin C] 250 mg PO DAILY@169902/09/20 [History] Multivitamins, Thera [Multivitamin (formulary)] 1 tab PO DAILY@169902/09/20 [History] cycloSPORINE 0.05% OPHTH SOLN [Restasis] 1 drop BOTH EYES Q12H 02/09/20 [History] Thiamine [Vitamin B-1] 100 mg PO DAILY@1200 tab 02/14/20 [Rx] Acetaminophen Tab [Tylenol] 650 mg PO Q6H PRN 02/15/20 [History] Ensure Clear 120 ml PO TID@0800,1200,17002/15/20 [History] Magnesium Hydroxide [Milk of Magnesia Concentrate] 7,200 mg PO Q48H PRN 02/15/20 [History] Magnesium Oxide [Mag-Ox] 400 mg PO BID@0800,1700 02/15/20 [History] Na Phos,M-B/Na Phos,Di-Ba [Fleet Adult] 133 ml RECTAL DAILY PRN 02/15/20 [History] Pantoprazole [Protonix] 40 mg PO DAILY@0600 02/15/20 [History] Simvastatin [Zocor] 20 mg PO HS@2100 02/15/20 [History] Tamsulosin HCl [Flomax] 0.4 mg PO BID@0800,1700 02/15/20 [History] Theophylline 24 Hour [Fabrice-24] 200 mg PO DAILY@0800 02/15/20 [History] bisacodyL [Bisacodyl] 10 mg RECTAL DAILY PRN 02/15/20 [History] Nystatin 100,000 Unit/ml Susp [Mycostatin Oral Susp] 5 ml PO QID 02/25/20 [History] bisacodyL [Dulcolax] 10 mg RECTAL DAILY PRN 02/25/20 [History] Furosemide [Lasix] 40 mg PO DAILY tab 03/04/20 [Rx] Linezolid 600 mg PO Q12H #0 03/04/20 [Rx] Follow up Appointment(s)/Referral(s): Pete Childs DO [Primary Care Provider] - 1-2 days Ravi Dunaway MD [STAFF PHYSICIAN] - 3 Days Discharge Disposition: TRANSFER TO SNF/ECF
[2020-03-04] MEDS: FUROSEMIDE 40 MG TAB PO SCH (12:11)
[2020-03-04] MEDS: FERROUS SULFATE 325 MG TAB PO SCH ×2 (12:11→12:13)
[2020-03-04] MEDS: ISOSORBIDE MONONITRATE ER 30 MG TAB.ER.24H PO SCH (12:11)
[2020-03-04] MEDS: cycloSPORINE 0.05% OPHTH 0.4 ML DROPERETTE BOTH EYES SCH (12:12)
[2020-03-04] MEDS: THIAMINE 100 MG TAB PO SCH (12:12)
[2020-03-04] MEDS: TAMSULOSIN 0.4 MG CAP.ER.24H PO SCH (12:12)
[2020-03-04] MEDS: THEOPHYLLINE 24 HOUR 200 MG CAP.ER.24H PO SCH (12:13)
--- NOTE | 2020-03-04 13:04 | P.PN ---
Subjective Progress Note Date: 03/04/20 HISTORY OF PRESENT ILLNESS: Patient examined this morning at bedside. He is status post permanent single-chamber pacemaker with Dr. Dunaway. Postop day #5. Patient denies chest pain or pressure. He denies shortness of breath. Patient has a small residual hematoma at the pacemaker site. Platelet count 85. Hemoglobin 9.1. His Eliquis remains on hold. PHYSICAL EXAM: VITAL SIGNS: Reviewed. GENERAL: Well-developed in no acute distress. NECK: Supple. No JVD or thyromegaly LUNGS: Respirations even and unlabored. Lungs diminished. HEART: Regular rate and rhythm. S1 and S2 heard. Pacemaker site to left chest wall with small hematoma noted. EXTREMITIES: Normal range of motion. No clubbing or cyanosis. Peripheral pulses intact. 1+ bilateral lower extremity edema ASSESSMENT: Acute cardiac arrest Acute hypoxic respiratory failure Severe bradycardia, s/p PPM insertion Chronic persistent atrial fibrillation COPD Coronary artery disease with previous CABG Acute exacerbation of chronic diastolic congestive heart failure Thrombocytopenia Postprocedural hematoma at pacemaker site, an unexpected but potential outcome of the surgical procedure in view of patient's thrombocytopenia Acute blood loss anemia Hypokalemia PLAN: May resume Eliquis today Monitor hemoglobin and platelet count Patient may be discharged today from a cardiac perspective Patient to follow up with Dr. Dunaway Nurse practitioner note has been reviewed by physician. Signing provider agrees with the documented findings, assessment, and plan of care. Objective - Vital Signs Vital signs: Vital Signs Temp 97.8 F 03/04/20 09:35 Pulse 84 03/04/20 11:35 Resp 18 03/04/20 09:35 BP 124/56 03/04/20 09:35 Pulse Ox 92 L 03/04/20 09:35 Intake & Output 03/03/20 03/04/20 03/04/20 18:59 06:59 18:59 Intake Total 900 Output Total 1100 850 Balance -200 -850 Weight 100.5 kg 101 kg Intake: Oral 900 Output: Urine 1100 850 Other: Voiding Method Indwelling Catheter Indwelling Catheter # Bowel Movements 1 - Labs CBC & Chem 7: 03/04/20 08:58 03/04/20 08:58 Labs: Abnormal Lab Results - Last 24 Hours (Table) 03/04/20 03/04/20 Range/Units 08:58 08:58 RBC 2.88 L (4.30-5.90) m/uL Hgb 9.1 L (13.0-17.5) gm/dL Hct 28.3 L (39.0-53.0) % RDW 17.2 H (11.5-15.5) % Plt Count 85 L (150-450) k/uL Potassium 3.4 L (3.5-5.1) mmol/L Chloride 111 H (98-107) mmol/L Creatinine 1.28 H (0.66-1.25) mg/dL Glucose 116 H (74-99) mg/dL Calcium 7.9 L (8.4-10.2) mg/dL
[2020-03-04 15:28] VITALS: BP 152/72; RESP 18; TEMP 97.9
[2020-03-04 15:33] VITALS: PULSE 72
--- NOTE | 2020-03-06 14:33 | CDI ---
Documentation Clarification Form Date: 03/06/20 From: Esha Fontenot Phone: Please call Di Haddad at from 8-5pm for questions Admit Date: 02/25/2020 02:55:00 PM Patient Name: Khanh Mahmood Visit Number: [id number] Discharge Date: 03/04/2020 03:35:00 PM ATTENTION: The Clinical Documentation Specialists (CDI) and [facility] Coding Staff appreciate your assistance in clarifying documentation. Please respond to the clarification below the line at the bottom and electronically sign. The CDI & [facility] Coding staff will review the response and follow-up if needed. Please note: Queries are made part of the Legal Health Record. If you have any questions, please contact the author of this message via ITS. Dr. Ravi Dunaway, Your patient has the documented diagnosis of cardiac arrest in ED notes, H&P, consults, PNs, procedure notes and DS. A relationship between diagnoses cannot be assumed unless documented. In order to capture the severity of condition; please document the relationship, if any, between these diagnoses. History/Risk Factors: Known history of severe bradycardia (related to Chronic Atrial fibrillation with), no need for pacemaker placement per [employer] during his most recent hospital stay. Acute hypoxic respiratory failure, anoxic brain damage, HTN w CKD III and acute on chronic diastolic CHF Clinical Indicators: Acute cardiac arrest, likely in asystole, the patient received CPR, unknown down time and patient was resuscitated and received CPR and following that there was return of his continuous circulation. The patient was intubated and detention and the patient was brought into the hospital. Treatment: CPR by EMS, single lead pacemaker implanted Please clarify and document your clinical opinion in the progress notes and discharge summary if any relationship (due to, caused by, secondary to) exist. Please include clinical findings supporting your diagnosis. Severe bradycardia such as SSS Other explanation of clinical findings (please specify) Unable to determine (no explanation for clinical findings) i cannot determine.check with ER doc or initial parts consultant MTDD
--- NOTE | 2020-03-11 08:14 | FL ---
EXAMINATION TYPE: FL barium swallow w video DATE OF EXAM: 03/01/2020 COMPARISON: NONE HISTORY: Dysphagia TECHNIQUE: Fluoroscopy. FINDINGS: Fluoroscopic guidance was provided for the procedure performed in conjunction with the [facility] pathology department. Please see complete report forthcoming from the Speech Pathology departmen t. Various consistencies from thin liquid to solids were administered. Fluoroscopy time 2 minutes 53 seconds. Number of images: 0. Multiple consistencies were performed. Multiple episodes of penetration with some aspiration with nec tar thick consistency was observed. The procedure was terminated. IMPRESSION: 1. Aspiration with various consistencies attempted.
== END 2020-03-04 15:35 | DRG 981 ==
LOC: EC 11:35 → 2SICU 14:55 → 3SCARD 02-28 16:37
PROVIDERS: ADMIT Internal Medicine; ATTEND Internal Medicine
PROC: 0BH17EZ Insertion of Endotracheal Airway into Trachea, Via Natural or Artificial Opening (ICD-10-PCS; 2020-02-25)
PROC: 5A1945Z Respiratory Ventilation, 24-96 Consecutive Hours (ICD-10-PCS; 2020-02-25)
PROC: 0D9670Z Drainage of Stomach with Drainage Device, Via Natural or Artificial Opening (ICD-10-PCS; 2020-02-25)
PROC: 02HV33Z Insertion of Infusion Device into Superior Vena Cava, Percutaneous Approach (ICD-10-PCS; 2020-02-25)
PROC: 02HK3JZ Insertion of Pacemaker Lead into Right Ventricle, Percutaneous Approach (ICD-10-PCS; principal; 2020-02-28 16:20)
PROC: 0JH604Z Insertion of Pacemaker, Single Chamber into Chest Subcutaneous Tissue and Fascia, Open Approach (ICD-10-PCS; principal; 2020-02-28 16:20)
DX: J96.01 Acute respiratory failure with hypoxia (principal); I46.8 Cardiac arrest due to other underlying condition; I50.33 Acute on chronic diastolic (congestive) heart failure; G93.1 Anoxic brain damage, not elsewhere classified; I13.0 Hypertensive heart and chronic kidney disease with heart failure and stage 1 through stage 4 chronic kidney disease, or unspecified chronic kidney disease; D62 Acute posthemorrhagic anemia; N17.9 Acute kidney failure, unspecified; I47.2 Ventricular tachycardia; I48.19 Other persistent atrial fibrillation; I48.92 Unspecified atrial flutter; L03.818 Cellulitis of other sites; J98.11 Atelectasis; L03.113 Cellulitis of right upper limb; I27.20 Pulmonary hypertension, unspecified; D69.6 Thrombocytopenia, unspecified; L89.159 Pressure ulcer of sacral region, unspecified stage; N18.30 Chronic kidney disease, stage 3 unspecified; J43.9 Emphysema, unspecified; Z20.828 Contact with and (suspected) exposure to other viral communicable diseases; R00.1 Bradycardia, unspecified; I44.4 Left anterior fascicular block; B95.62 Methicillin resistant Staphylococcus aureus infection as the cause of diseases classified elsewhere; I25.10 Atherosclerotic heart disease of native coronary artery without angina pectoris; E78.5 Hyperlipidemia, unspecified; E87.6 Hypokalemia; R26.9 Unspecified abnormalities of gait and mobility; K59.00 Constipation, unspecified; F40.240 Claustrophobia; I25.2 Old myocardial infarction; Z79.01 Long term (current) use of anticoagulants; Z79.51 Long term (current) use of inhaled steroids; Z79.899 Other long term (current) drug therapy; Z87.891 Personal history of nicotine dependence; Z90.2 Acquired absence of lung [part of]; Z85.118 Personal history of other malignant neoplasm of bronchus and lung; Z87.19 Personal history of other diseases of the digestive system; Z86.010 Personal history of colon polyps; Z86.14 Personal history of Methicillin resistant Staphylococcus aureus infection; Z90.49 Acquired absence of other specified parts of digestive tract; Z87.81 Personal history of (healed) traumatic fracture; Z98.890 Other specified postprocedural states; Z95.1 Presence of aortocoronary bypass graft; Z80.0 Family history of malignant neoplasm of digestive organs; Z83.3 Family history of diabetes mellitus
CPT/HCPCS: 33207; 36415; 36600; 70360; 70450; 71045; 71046; 71275; 72125; 74230; 80048; 80053; 81001; 82550; 82805; 83036; 83605; 83690; 83735; 83880; 84484; 85025; 85027; 85379; 85610; 85730; 86850; 86900; 86901; 87070; 87077; 87086; 87186; 87205; 87635; 93005; 94002; 94003; 94640; 94760; 96374; 99291

== ENCOUNTER 2020-03-10 12:19 | Inpatient (IN) | payer OTHER, MEDICARE ==
[2020-03-10] MEDS ORDERED: SODIUM CHLORIDE 0.9% 1,000 ML IV ONE (12:51)
--- NOTE | 2020-03-10 12:56 | ED ---
General Adult HPI - General Chief complaint: Altered Mental Status Stated complaint: altered Time Seen by Provider: 03/10/20 12:27 Source: EMS, RN notes reviewed, old records reviewed Mode of arrival: EMS Limitations: altered mental status, physical limitation - History of Present Illness Initial comments: Patient is a pleasant 79-year-old male presenting to the emergency Department with reported altered mental status. Further history is limited. Patient admits he does not feel well however unclear why. Patient reportedly has not been eating or drinking well. Patient denies cough or shortness of breath. Patient does feel fatigued. No isolated area of weakness. There is also reported concern for leg edema. Patient denies calf pain or discomfort. Patient was recently in the hospital. - Related Data Home Medications Medication Instructions Recorded Confirmed Tiotropium 18 Mcg/Puff [Spiriva] 1 cap INHALATION RT-DAILY@0800 07/13/13 03/10/20 Nitroglycerin Sl Tabs [Nitrostat] 0.4 mg SL Q5M PRN 03/19/16 03/10/20 Ferrous Sulfate [Iron] 325 mg PO TID@0800,1200,1700 11/09/17 03/10/20 Isosorbide Mononitrate [Isosorbide 30 mg PO BID@0800,1700 11/09/17 03/10/20 Mononitrate ER] Ipratropium-Albuterol Nebulize 3 ml INHALATION RT-QID PRN 03/22/18 03/10/20 [Duoneb 0.5 mg-3 mg/3 ml Soln] Apixaban [Eliquis] 2.5 mg PO DIRECTED 09/27/18 03/10/20 Budesonide-Formot 160-4.5 Mcg 2 puff INHALATION RT-BID@0800,1700 09/25/19 03/10/20 [Symbicort 160-4.5 Mcg Inhaler] Folic Acid 1 mg PO DAILY@1700 09/25/19 03/10/20 Ascorbic Acid [Vitamin C] 250 mg PO DAILY@1700 02/09/20 03/10/20 Multivitamins, Thera [Multivitamin 1 tab PO DAILY@1700 02/09/20 03/10/20 (formulary)] cycloSPORINE 0.05% OPHTH SOLN 1 drop BOTH EYES BID@0800,2100 02/09/2020 [Restasis] Acetaminophen Tab [Tylenol] 650 mg PO Q6H PRN 02/15/20 03/10/20 Ensure Clear 120 ml PO TID@0800,1200,1700 02/15/20 03/10/20 Magnesium Hydroxide [Milk of 7,200 mg PO Q48H PRN 02/15/20 03/10/20 Magnesia Concentrate] Magnesium Oxide [Mag-Ox] 400 mg PO BID@0800,1700 02/15/20 03/10/20 Na Phos,M-B/Na Phos,Di-Ba [Fleet 133 ml RECTAL DAILY PRN 02/15/20 03/10/20 Adult] Pantoprazole [Protonix] 40 mg PO DAILY@0600 02/15/20 03/10/20 Simvastatin [Zocor] 20 mg PO HS@209902/15/20 03/10/20 Tamsulosin HCl [Flomax] 0.4 mg PO BID@0800,1700 02/15/20 03/10/20 Theophylline 24 Hour [Fabrice-24] 200 mg PO DAILY@0800 02/15/20 03/10/20 bisacodyL [Dulcolax] 10 mg RECTAL DAILY PRN 02/25/20 03/10/20 Furosemide [Lasix] 40 mg PO DAILY@0800 03/10/20 03/10/20 Linezolid 600 mg PO BID@0800,2100 03/10/20 03/10/20 Metoprolol Tartrate [Lopressor] 25 mg PO BID@0800,1700 03/10/20 03/10/20 Potassium Chloride ER [K-Dur 20] 20 meq PO DAILY@0800 03/10/20 03/10/20 Previous Rx's Medication Instructions Recorded Thiamine [Vitamin B-1] 100 mg PO DAILY@1200 tab 02/14/20 Allergies Allergy/AdvReac Type Severity Reaction Status Date / Time No Known Allergies Allergy Verified 03/10/20 12:46 Review of Systems ROS Statement: Those systems with pertinent positive or pertinent negative responses have been documented in the HPI. ROS Other: All systems not noted in ROS Statement are negative. Eyes: Denies: eye pain ENT: Denies: ear pain Respiratory: Denies: cough Cardiovascular: Denies: chest pain Endocrine: Reports: fatigue Gastrointestinal: Denies: abdominal pain Genitourinary: Denies: dysuria Musculoskeletal: Denies: back pain Skin: Denies: rash Neurological: Denies: headache Past Medical History Past Medical History: Atrial Fibrillation, Coronary Artery Disease (CAD), Cancer, Heart Failure, COPD, Hyperlipidemia, Hypertension, Myocardial Infarction (SD), Renal Disease Additional Past Medical History / Comment(s): R lung cancer with wedge resection-no chemo or radiation, severe pulmonary HTN, CKD stage III, anemia,hiatal hernia, constipation/benign polyp, bradycardia. First degree Heart Block 01/2020. Last Myocardial Infarction Date:: 2002 History of Any Multi-Drug Resistant Organisms: MRSA Date of last positivie culture/infection: 02/10/20 MDRO Source:: Buttock Past Surgical History: Appendectomy, Coronary Bypass/CABG, Heart Catheterization, Orthopedic Surgery Additional Past Surgical History / Comment(s): 2002 CABG 3 vessel, cardiac angioplasty, R lung wedge resection, R hip closed reduction/ORIF, EGD, colonoscopies/polypectgomies. Past Anesthesia/Blood Transfusion Reactions: No Reported Reaction Additional Past Anesthesia/Blood Transfusion Reaction / Comment(s): CLAUSTERPHOBIA. Pt has received blood in past without reaction. Past Psychological History: No Psychological Hx Reported Smoking Status: Former smoker Past Alcohol Use History: None Reported Past Drug Use History: None Reported - Past Family History Father Family Medical History: Cancer Additional Family Medical History / Comment(s): of pancreatic cancer Mother Family Medical History: Diabetes Mellitus Additional Family Medical History / Comment(s): AT AGE 90 WAS IN PRETTY GOOD HEALTH FROM OLD AGE Brother(s) Family Medical History: Diabetes Mellitus Additional Family Medical History / Comment(s): 2 BROTHERS HAVE DIABETES General Exam Limitations: altered mental status, physical limitation General appearance: alert, in no apparent distress Head exam: Present: atraumatic Eye exam: Present: normal appearance, PERRL, EOMI ENT exam: Present: mucous membranes dry Neck exam: Present: normal inspection Respiratory exam: Present: normal lung sounds bilaterally Cardiovascular Exam: Present: regular rate, normal rhythm GI/Abdominal exam: Present: soft. Absent: tenderness Extremities exam: Present: pedal edema (+2 bilateral). Absent: calf tenderness Neurological exam: Present: alert, oriented X3. Absent: motor sensory deficit Expanded Neurological exam: Present: protecting the airway Patient oriented to: Present: person, place, time Motor strength exam: RUE: 5, LUE: 5, RLE: 5, LLE: 5 Eye Response: (4) open spontaneously Motor Response: (6) obeys commands Verbal Response: (5) oriented Psychiatric exam: Present: flat affect Skin exam: Present: normal color Course Vital Signs 03/10/20 03/10/20 03/10/20 12:29 13:05 13:58 Temperature 97.1 F L 98.5 F Pulse Rate 70 70 70 Respiratory 18 18 18 Rate Blood Pressure 102/46 101/54 O2 Sat by Pulse 100 100 92 L Oximetry EKG Findings - EKG Comments: EKG Findings:: Paced rhythm with a rate of 70. Wide QRS complex 196. QT 5:30. QTC 572. [place] indeterminate. Diffuse Q waves. Borderline ST depression V2. Medical Decision Making - Medical Decision Making Patient reevaluated and updated. Case discussed with Dr. Noland, covering for Dr. Hernandez, who will admit covering for Dr. Childs. - Lab Data Result diagrams: 03/10/20 12:54 03/10/20 12:54 Lab Results 03/10/20 03/10/20 03/10/20 Range/Units 12:54 12:54 12:54 WBC 6.0 (3.8-10.6) k/uL RBC 3.01 L (4.30-5.90) m/uL Hgb 9.2 L (13.0-17.5) gm/dL Hct 28.9 L (39.0-53.0) % MCV 96.1 (80.0-100.0) fL MCH 30.6 (25.0-35.0) pg MCHC 31.8 (31.0-37.0) g/dL RDW 17.4 H (11.5-15.5) % Plt Count 249 D (150-450) k/uL MPV 8.8 Neutrophils % 86 % Lymphocytes % 5 % Monocytes % 7 % Eosinophils % 0 % Basophils % 0 % Neutrophils # 5.1 (1.3-7.7) k/uL Lymphocytes # 0.3 L (1.0-4.8) k/uL Monocytes # 0.4 (0-1.0) k/uL Eosinophils # 0.0 (0-0.7) k/uL Basophils # 0.0 (0-0.2) k/uL Hypochromasia Slight Anisocytosis Slight Macrocytosis Slight PT 15.7 H (9.0-12.0) sec INR 1.6 H (<1.2) APTT 34.6 H (22.0-30.0) sec Sodium 138 (137-145) mmol/L Potassium 2.9 L (3.5-5.1) mmol/L Chloride 100 (98-107) mmol/L Carbon Dioxide 34 H (22-30) mmol/L Anion Gap 4 mmol/L BUN 27 H (9-20) mg/dL Creatinine 1.69 H (0.66-1.25) mg/dL Est GFR (CKD-EPI)AfAm 44 (>60 ml/min/1.73 sqM) Est GFR (CKD-EPI)NonAf 38 (>60 ml/min/1.73 sqM) Glucose 98 (74-99) mg/dL Calcium 7.9 L (8.4-10.2) mg/dL Total Bilirubin 1.5 H (0.2-1.3) mg/dL AST 26 (17-59) U/L ALT 15 (4-49) U/L Alkaline Phosphatase 40 (38-126) U/L Creatine Kinase <20 L (55-170) U/L Troponin I (0.000-0.034) ng/mL NT-Pro-B Natriuret Pep pg/mL Total Protein 5.6 L (6.3-8.2) g/dL Albumin 2.2 L (3.5-5.0) g/dL Urine Color Urine Appearance (Clear) Urine pH (5.0-8.0) Ur Specific [place] (1.001-1.035) Urine Protein (Negative) Urine Glucose (UA) (Negative) Urine Ketones (Negative) Urine Blood (Negative) Urine Nitrite (Negative) Urine Bilirubin (Negative) Urine Urobilinogen (<2.0) mg/dL Ur Leukocyte Esterase (Negative) Urine RBC (0-5) /hpf Urine WBC (0-5) /hpf Amorphous Sediment (None) /hpf Hyaline Casts (0-2) /lpf Urine Mucus (None) /hpf Ur Yeast w Hyphae (None) /hpf Urine Yeast (Budding) (None) /hpf Coronavirus (PCR) (Not Detectd) 03/10/20 03/10/20 03/10/20 Range/Units 12:54 12:54 12:56 WBC (3.8-10.6) k/uL RBC (4.30-5.90) m/uL Hgb (13.0-17.5) gm/dL Hct (39.0-53.0) % MCV (80.0-100.0) fL MCH (25.0-35.0) pg MCHC (31.0-37.0) g/dL RDW (11.5-15.5) % Plt Count (150-450) k/uL MPV Neutrophils % % Lymphocytes % % Monocytes % % Eosinophils % % Basophils % % Neutrophils # (1.3-7.7) k/uL Lymphocytes # (1.0-4.8) k/uL Monocytes # (0-1.0) k/uL Eosinophils # (0-0.7) k/uL Basophils # (0-0.2) k/uL Hypochromasia Anisocytosis Macrocytosis PT (9.0-12.0) sec INR (<1.2) APTT (22.0-30.0) sec Sodium (137-145) mmol/L Potassium (3.5-5.1) mmol/L Chloride (98-107) mmol/L Carbon Dioxide (22-30) mmol/L Anion Gap mmol/L BUN (9-20) mg/dL Creatinine (0.66-1.25) mg/dL Est GFR (CKD-EPI)AfAm (>60 ml/min/1.73 sqM) Est GFR (CKD-EPI)NonAf (>60 ml/min/1.73 sqM) Glucose (74-99) mg/dL Calcium (8.4-10.2) mg/dL Total Bilirubin (0.2-1.3) mg/dL AST (17-59) U/L ALT (4-49) U/L Alkaline Phosphatase (38-126) U/L Creatine Kinase (55-170) U/L Troponin I 0.074 H* (0.000-0.034) ng/mL NT-Pro-B Natriuret Pep 1810 pg/mL Total Protein (6.3-8.2) g/dL Albumin (3.5-5.0) g/dL Urine Color Urine Appearance (Clear) Urine pH (5.0-8.0) Ur Specific [place] (1.001-1.035) Urine Protein (Negative) Urine Glucose (UA) (Negative) Urine Ketones (Negative) Urine Blood (Negative) Urine Nitrite (Negative) Urine Bilirubin (Negative) Urine Urobilinogen (<2.0) mg/dL Ur Leukocyte Esterase (Negative) Urine RBC (0-5) /hpf Urine WBC (0-5) /hpf Amorphous Sediment (None) /hpf Hyaline Casts (0-2) /lpf Urine Mucus (None) /hpf Ur Yeast w Hyphae (None) /hpf Urine Yeast (Budding) (None) /hpf Coronavirus (PCR) Detected A (Not Detectd) 03/10/20 Range/Units 13:04 WBC (3.8-10.6) k/uL RBC (4.30-5.90) m/uL Hgb (13.0-17.5) gm/dL Hct (39.0-53.0) % MCV (80.0-100.0) fL MCH (25.0-35.0) pg MCHC (31.0-37.0) g/dL RDW (11.5-15.5) % Plt Count (150-450) k/uL MPV Neutrophils % % Lymphocytes % % Monocytes % % Eosinophils % % Basophils % % Neutrophils # (1.3-7.7) k/uL Lymphocytes # (1.0-4.8) k/uL Monocytes # (0-1.0) k/uL Eosinophils # (0-0.7) k/uL Basophils # (0-0.2) k/uL Hypochromasia Anisocytosis Macrocytosis PT (9.0-12.0) sec INR (<1.2) APTT (22.0-30.0) sec Sodium (137-145) mmol/L Potassium (3.5-5.1) mmol/L Chloride (98-107) mmol/L Carbon Dioxide (22-30) mmol/L Anion Gap mmol/L BUN (9-20) mg/dL Creatinine (0.66-1.25) mg/dL Est GFR (CKD-EPI)AfAm (>60 ml/min/1.73 sqM) Est GFR (CKD-EPI)NonAf (>60 ml/min/1.73 sqM) Glucose (74-99) mg/dL Calcium (8.4-10.2) mg/dL Total Bilirubin (0.2-1.3) mg/dL AST (17-59) U/L ALT (4-49) U/L Alkaline Phosphatase (38-126) U/L Creatine Kinase (55-170) U/L Troponin I (0.000-0.034) ng/mL NT-Pro-B Natriuret Pep pg/mL Total Protein (6.3-8.2) g/dL Albumin (3.5-5.0) g/dL Urine Color Yellow Urine Appearance Clear (Clear) Urine pH 5.0 (5.0-8.0) Ur Specific [place] 1.009 (1.001-1.035) Urine Protein Negative (Negative) Urine Glucose (UA) Negative (Negative) Urine Ketones Negative (Negative) Urine Blood Small H (Negative) Urine Nitrite Negative (Negative) Urine Bilirubin Negative (Negative) Urine Urobilinogen <2.0 (<2.0) mg/dL Ur Leukocyte Esterase Moderate H (Negative) Urine RBC 9 H (0-5) /hpf Urine WBC 18 H (0-5) /hpf Amorphous Sediment Rare H (None) /hpf Hyaline Casts 20 H (0-2) /lpf Urine Mucus Rare H (None) /hpf Ur Yeast w Hyphae Rare (None) /hpf Urine Yeast (Budding) Occasional H (None) /hpf Coronavirus (PCR) (Not Detectd) - Radiology Data Radiology results: report reviewed (Computed tomography scan of the brain shows stable ventriculomegaly. Mild to moderate small vessel chronic ischemic changes. No acute intercranial abnormality.), image reviewed (Chest x-ray shows cardiomegaly and interstitial changes.) Disposition Clinical Impression: COVID-19, UTI (urinary tract infection), Dehydration Disposition: ADMITTED IP TO THIS HOSP Is patient prescribed a controlled substance at d/c from ED?: No Referrals: Pete Childs DO [Primary Care Provider] - 1-2 days Decision Time: 14:18
[2020-03-10 13:11] LABS: Anisocytosis Slight; Basophils % (A) 0 %; Eosinophils % (A) 0 %; HCT 28.9 % (39.0-53.0); HGB 9.2 gm/dL (13.0-17.5); Hypochromasia Slight; Lymphocytes # (A) 0.3 k/uL (1.0-4.8); Lymphocytes % (A) 5 %; MCH 30.6 pg (25.0-35.0); MCHC 31.8 g/dL (31.0-37.0); MCV 96.1 fL (80.0-100.0); Macrocytosis Slight; Mean Platelet Volume 8.8; Monocytes # (A) 0.4 k/uL (0-1.0); Monocytes % (A) 7 %; Neutrophils # (A) 5.1 k/uL (1.3-7.7); Neutrophils % (A) 86 %; RBC 3.01 m/uL (4.30-5.90); RDW 17.4 % (11.5-15.5)
[2020-03-10 13:13] LABS: Platelet Count 249 k/uL (150-450)
[2020-03-10 13:14] LABS: ALT 15 U/L (4-49); AST 26 U/L (17-59); African American GFR (CKD) 44 (>60 ml/min/1.73 sqM); Albumin 2.2 g/dL (3.5-5.0); Alkaline Phosphatase 40 U/L (38-126); Anion Gap 4 mmol/L; Blood Urea Nitrogen 27 mg/dL (9-20); Calcium 7.9 mg/dL (8.4-10.2); Carbon Dioxide 34 mmol/L (22-30); Chloride 100 mmol/L (98-107); Creatine Kinase <20 U/L (55-170); Glucose 98 mg/dL (74-99); Non-African American GFR(CKD) 38 (>60 ml/min/1.73 sqM); Potassium 2.9 mmol/L (3.5-5.1); Sodium 138 mmol/L (137-145); Total Bilirubin 1.5 mg/dL (0.2-1.3); Total Protein 5.6 g/dL (6.3-8.2)
[2020-03-10 13:22] LABS: INR 1.6 (<1.2); Partial Thromboplastin Time 34.6 sec (22.0-30.0); Prothrombin Time 15.7 sec (9.0-12.0)
[2020-03-10 13:23] LABS: Amorphous Sediment,Urine Rare /hpf; Appearance,Urine Clear (Clear); Bilirubin,Urine Negative (Negative); Blood,Urine Small (Negative); Budding Yeast,Urine Occasional /hpf; Color,Urine Yellow; Glucose,Urine (UA) Negative (Negative); Hyaline Casts,Urine 20 /lpf (0-2); Hyphae Yeast, Urine Rare /hpf; Ketones,Urine Negative (Negative); Leukocyte Esterase,Urine Moderate (Negative); Mucus,Urine Rare /hpf; Nitrite,Urine Negative (Negative); Protein,Urine Negative (Negative); RBC,Urine 9 /hpf (0-5); Specific Gravity,Urine 1.009 (1.001-1.035); Urobilinogen,Urine <2.0 mg/dL (<2.0); WBC,Urine 18 /hpf (0-5)
--- NOTE | 2020-03-10 13:44 | CT ---
EXAMINATION TYPE: CT brain wo con DATE OF EXAM: 03/10/2020 COMPARISON: 02/25/2020 HISTORY: 79-year-old male confusion, altered mental status TECHNIQUE: Examination was done in axial plane without intravenous contrast. Coronal and sagittal r econstructions performed. CT DLP: 1099.4 mGycm Automated exposure control for dose reduction was used. FINDINGS: There is no evidence of acute intracranial hemorrhage, acute ischemic changes, mass, mass-effect, or extra-axial fluid collection. There is no effacement of cerebral sulci or basal subarachnoid cister ns. Mild hydrocephalus. There is no midline shift. Grover-white matter distinction is preserved. Moderate patchy periventricular white matter hypodensities are unchanged. Cerumen right external auditory canal. IMPRESSION: 1. Stable mild ventriculomegaly likely ex vacuo enlargement from central cerebral atrophy. Correlate to exclude a component of NPH. 2. Stable mild to moderate patchy burden of chronic small vessel ischemic disease. No acute intracran ial abnormality seen.
--- NOTE | 2020-03-10 13:45 | XR ---
EXAMINATION TYPE: XR chest 2V DATE OF EXAM: 03/10/2020 COMPARISON: 02/29/2020 HISTORY: 79-year-old male confusion, altered mental status TECHNIQUE: AP and lateral views FINDINGS: Median sternotomy wires. Left anterior chest wall pacemaker generator with right ventricular lead. He art mildly enlarged. Bilateral hilar prominence is suspected large right and left pulmonary arteries. There are moderate effusions with patchy mid and lower lung opacities, increased from prior exam. IMPRESSION: Cardiomegaly with interstitial change, possible pulmonary arterial hypertension, and moderate effusio ns with adjacent atelectasis and/or consolidation. Findings worsened from 02/29/2020. Consider worsen ing CHF versus underlying pneumonia.
[2020-03-10] MEDS ORDERED: POTASSIUM CHLORIDE ER 20 MEQ TAB.ER PO STA (14:09)
[2020-03-10] MEDS ORDERED: ZINC SULFATE 220 MG CAP PO STA (14:14)
[2020-03-10] MEDS ORDERED: CHOLECALCIFEROL 1,000 UNIT TAB PO STA (14:15)
[2020-03-10] MEDS ORDERED: NALOXONE 0.4 MG/ML 1 ML VIAL IV PRN (14:19)
[2020-03-10] MEDS ORDERED: ACETAMINOPHEN TAB 325 MG TAB PO PRN (14:19)
[2020-03-10] MEDS: POTASSIUM CHLORIDE ER 20 MEQ TAB.ER PO SCH ×2 (21:18→21:25)
[2020-03-10] MEDS: ASCORBIC ACID 500 MG TAB PO SCH ×2 (21:18→21:25)
[2020-03-10] MEDS ORDERED: Potassium Replacement Protocol 1 EACH MISC MISCELLANE PRN (21:44)
[2020-03-10] MEDS: POTASSIUM CHLORIDE 20 MEQ in WATER FOR INJECTION 1 100ML.BAG IVPB SCH (22:50)
[2020-03-11] MEDS: POTASSIUM CHLORIDE 20 MEQ in WATER FOR INJECTION 1 100ML.BAG IVPB SCH ×4 (00:51→15:01)
[2020-03-11 07:38] LABS: Anisocytosis Slight; Basophils % (A) 1 %; Eosinophils % (A) 1 %; HCT 29.8 % (39.0-53.0); HGB 9.7 gm/dL (13.0-17.5); Hypochromasia Moderate; Lymphocytes % (A) 9 %; MCH 31.8 pg (25.0-35.0); MCHC 32.6 g/dL (31.0-37.0); MCV 97.8 fL (80.0-100.0); Macrocytosis Slight; Mean Platelet Volume 8.4; Monocytes % (A) 14 %; Neutrophils % (A) 74 %; Platelet Count 209 k/uL (150-450); RBC 3.05 m/uL (4.30-5.90); RDW 16.9 % (11.5-15.5); WBC 5.5 k/uL (3.8-10.6)
[2020-03-11 07:39] LABS: Lymphocytes # (A) 0.5 k/uL (1.0-4.8); Monocytes # (A) 0.8 k/uL (0-1.0)
[2020-03-11 08:01] LABS: Calcium 7.7 mg/dL (8.4-10.2); Potassium 3.4 mmol/L (3.5-5.1)
[2020-03-11] MEDS: CHOLECALCIFEROL 1,000 UNIT TAB PO SCH (09:15)
[2020-03-11] MEDS: POTASSIUM CHLORIDE ER 20 MEQ TAB.ER PO SCH ×2 (09:16→20:00)
[2020-03-11] MEDS: ASCORBIC ACID 500 MG TAB PO SCH ×2 (09:16→20:00)
[2020-03-11] MEDS: ZINC SULFATE 220 MG CAP PO SCH (09:16)
[2020-03-11] MEDS ORDERED: Potassium Replacement Protocol 1 EACH MISC MISCELLANE PRN (10:49)
--- NOTE | 2020-03-11 18:41 | P.HPIM ---
History of Present Illness H&P Date: 03/11/20 Chief Complaint: Generalized weakness failure to thrive This is a 79-year-old male came into the hospital with generalized weakness along with altered mental status, data cannot be obtained from the patient, patient has not been feeling well for some period of time, her appetite has been poor not eating or drinking much denies any chest pain or shortness of breath, overall a poor historian, most of the data has been obtained from the chart, patient does have a history of chronic atrial fibrillation and has been on direct oral anticoagulant, also history of coronary artery disease COPD dyslipidemia hypertension hypertensive cardiovascular disease, patient does have a history of lung cancer he is status post VATS and wedge resection of the right-sided lung mass, patient had end-stage COPD severe pulmonary hypertension along with chronic kidney disease, he has prior history of coronary artery bypass surgery 2002, on arrival his blood pressure was slightly on the low side, no significant tachypnea is noted oxygen saturation is 90-100%, patient sees Dr. ford for primary care activity, his labs were significant for mild anemia,, urine is stable troponin is mildly elevated patient has been found to be covid positive, his computed tomography scan of the head is positive for mild normal pressure hydrocephalus, chest x-ray shows interstitial pneumonia patient is started on zinc with IV Rocephin, we will also put him on Decadron and IV REMdesivir Review of Systems ROS unobtainable: due to mental status Past Medical History Past Medical History: Atrial Fibrillation, Coronary Artery Disease (CAD), Cancer, Heart Failure, COPD, Hyperlipidemia, Hypertension, Myocardial Infarction (SC), Renal Disease Additional Past Medical History / Comment(s): R lung cancer with wedge resection-no chemo or radiation, severe pulmonary HTN, CKD stage III, anemia,hiatal hernia, constipation/benign polyp, bradycardia. First degree Heart Block 01/2020. Last Myocardial Infarction Date:: 2002 History of Any Multi-Drug Resistant Organisms: MRSA Date of last positivie culture/infection: 02/10/20 MDRO Source:: Buttock Past Surgical History: Appendectomy, Coronary Bypass/CABG, Heart Catheterization, Orthopedic Surgery, Pacemaker Additional Past Surgical History / Comment(s): 2002 CABG 3 vessel, cardiac angioplasty, R lung wedge resection, R hip closed reduction/ORIF, EGD, colonoscopies/polypectgomies. Past Anesthesia/Blood Transfusion Reactions: No Reported Reaction Additional Past Anesthesia/Blood Transfusion Reaction / Comment(s): CLAUSTERPHOBIA. Pt has received blood in past without reaction. Type of Cardiac Device: Permanent Pacemaker Device Placement Date:: 02/25/20 Past Psychological History: No Psychological Hx Reported Additional Psychological History / Comment(s): Pt resides at [facility] for rehab. Smoking Status: Former smoker Past Alcohol Use History: None Reported Additional Past Alcohol Use History / Comment(s): started smoking at age 18 (1959), quit 2001 smoked 1 ppd. Past Drug Use History: None Reported - Past Family History Father Family Medical History: Cancer Additional Family Medical History / Comment(s): of pancreatic cancer Mother Family Medical History: Diabetes Mellitus Additional Family Medical History / Comment(s): AT AGE 90 WAS IN PRETTY GOOD HEALTH FROM OLD AGE Brother(s) Family Medical History: Diabetes Mellitus Additional Family Medical History / Comment(s): 2 BROTHERS HAVE DIABETES Medications and Allergies Home Medications Medication Instructions Recorded Confirmed Type Tiotropium 18 Mcg/Puff [Spiriva] 1 cap INHALATION RT-DAILY@0800 07/13/13 03/10/20 History Nitroglycerin Sl Tabs [Nitrostat] 0.4 mg SL Q5M PRN 03/19/16 03/10/20 History Ferrous Sulfate [Iron] 325 mg PO TID@0800,1200,1700 11/09/17 03/10/20 History Isosorbide Mononitrate [Isosorbide 30 mg PO BID@0800,1700 11/09/17 03/10/20 History Mononitrate ER] Ipratropium-Albuterol Nebulize 3 ml INHALATION RT-QID PRN 03/22/18 03/10/20 History [Duoneb 0.5 mg-3 mg/3 ml Soln] Apixaban [Eliquis] 2.5 mg PO DIRECTED 09/27/18 03/10/20 History Budesonide-Formot 160-4.5 Mcg 2 puff INHALATION RT-BID@0800,1700 09/25/19 03/10/20 History [Symbicort 160-4.5 Mcg Inhaler] Folic Acid 1 mg PO DAILY@1700 09/25/19 03/10/20 History Ascorbic Acid [Vitamin C] 250 mg PO DAILY@1700 02/09/20 03/10/20 History Multivitamins, Thera [Multivitamin 1 tab PO DAILY@1700 02/09/20 03/10/20 History (formulary)] cycloSPORINE 0.05% OPHTH SOLN 1 drop BOTH EYES BID@0800,2100 02/09/20 03/10/20 History [Restasis] Thiamine [Vitamin B-1] 100 mg PO DAILY@1200 tab 02/14/20 03/10/20 Rx Acetaminophen Tab [Tylenol] 650 mg PO Q6H PRN 02/15/20 03/10/20 History Ensure Clear 120 ml PO TID@0800,1200,1700 02/15/20 03/10/20 History Magnesium Hydroxide [Milk of 7,200 mg PO Q48H PRN 02/15/20 03/10/20 History Magnesia Concentrate] Magnesium Oxide [Mag-Ox] 400 mg PO BID@0800,1700 02/15/20 03/10/20 History Na Phos,M-B/Na Phos,Di-Ba [Fleet 133 ml RECTAL DAILY PRN 02/15/20 03/10/20 History Adult] Pantoprazole [Protonix] 40 mg PO DAILY@0600 02/15/20 03/10/20 History Simvastatin [Zocor] 20 mg PO HS@209902/15/20 03/10/20 History Tamsulosin HCl [Flomax] 0.4 mg PO BID@0800,1700 02/15/20 03/10/20 History Theophylline 24 Hour [Fabrice-24] 200 mg PO DAILY@0800 02/15/20 03/10/20 History bisacodyL [Dulcolax] 10 mg RECTAL DAILY PRN 02/25/20 03/10/20 History Furosemide [Lasix] 40 mg PO DAILY@0800 03/10/20 03/10/20 History Linezolid 600 mg PO BID@0800,209903/10/20 03/10/20 History Metoprolol Tartrate [Lopressor] 25 mg PO BID@0800,1700 03/10/20 03/10/20 History Potassium Chloride ER [K-Dur 20] 20 meq PO DAILY@0800 03/10/20 03/10/20 History Allergies Allergy/AdvReac Type Severity Reaction Status Date / Time No Known Allergies Allergy Verified 03/10/20 12:46 Physical Exam Vitals: Vital Signs Temp Pulse Resp BP Pulse Ox 03/11/20 16:00 75 16 136/66 100 03/11/20 12:00 96.4 F L 71 17 130/69 99 03/11/20 08:00 97.2 F L 71 16 144/66 100 03/11/20 03:06 97.3 F L 85 19 150/64 98 03/10/20 23:09 97.2 F L 71 17 127/58 97 03/10/20 20:00 97.2 F L 74 17 121/56 95 Intake and Output 03/11/20 03/11/20 03/11/20 06:59 14:59 22:59 Intake Total 50 1250 Output Total 500 Balance -299 10 7247 Intake: Intake, IV Titration 50 1250 Amount Potassium Chloride 20 meq 100 In Water For Injection 1 100ml.bag @ 50 mls/hr IVPB Q2H [facility] Rx#: [id number] Potassium Chloride 20 meq 100 In Water For Injection 1 100ml.bag @ 50 mls/hr IVPB Q2H [facility] Rx#: [id number] Sodium Chloride 0.9% 1, 1000 000 ml @ 75 mls/hr IV . [id number] ONE Rx#:[id number] cefTRIAXone 1 gm In 50 50 Sodium Chloride 0.9% 50 ml @ 100 mls/hr IVPB Q24HR [facility] Rx#:[id number] Output: Urine 500 Other: Voiding Method Indwelling Catheter Indwelling Catheter # Bowel Movements 1 Weight 87.5 kg 87.5 kg - Constitutional General appearance: average body habitus, disheveled - EENT Eyes: PERRLA Ears: bilateral: normal - Neck Carotids: bilateral: upstroke normal Thyroid: bilateral: normal size - Respiratory Respiratory: bilateral: diminished - Cardiovascular Rhythm: regular Heart sounds: normal: S1, S2 - Gastrointestinal General gastrointestinal: soft - Neurologic Neurologic: CNII-XII intact - Musculoskeletal Musculoskeletal: generalized weakness, strength equal bilaterally - Psychiatric Psychiatric: A&O x's 3 Results CBC & Chem 7: 03/11/20 07:11 03/11/20 07:11 Labs: Abnormal Lab Results - Last 24 Hours (Table) 03/10/20 03/10/20 03/11/20 Range/Units 19:04 21:00 07:11 RBC 3.05 L (4.30-5.90) m/uL Hgb 9.7 L (13.0-17.5) gm/dL Hct 29.8 L (39.0-53.0) % RDW 16.9 H (11.5-15.5) % Lymphocytes # 0.5 L (1.0-4.8) k/uL Potassium 2.9 L (3.5-5.1) mmol/L Carbon Dioxide (22-30) mmol/L BUN (9-20) mg/dL Creatinine (0.66-1.25) mg/dL Calcium (8.4-10.2) mg/dL Troponin I 0.084 H* (0.000-0.034) ng/mL 03/11/20 Range/Units 07:11 RBC (4.30-5.90) m/uL Hgb (13.0-17.5) gm/dL Hct (39.0-53.0) % RDW (11.5-15.5) % Lymphocytes # (1.0-4.8) k/uL Potassium 3.4 L (3.5-5.1) mmol/L Carbon Dioxide 31 H (22-30) mmol/L BUN 30 H (9-20) mg/dL Creatinine 1.60 H (0.66-1.25) mg/dL Calcium 7.7 L (8.4-10.2) mg/dL Troponin I (0.000-0.034) ng/mL Microbiology - Last 24 Hours (Table) 03/10/20 13:04 Urine Culture - Preliminary Urine,Catheterized Chest x-ray: report reviewed, image reviewed Thrombosis Risk Factor Assmnt - Choose All That Apply Each Factor Represents 1 point: Swollen legs (current) Each Risk Factor Represents 3 Points: Age 75 years or older Thrombosis Risk Factor Assessment Total Risk Factor Score: 4 Thrombosis Risk Factor Assessment Level: Moderate Risk Assessment and Plan Assessment: Acute covid 19 pneumonia Altered mental status confusion multifactorial may be related to above and hypoxia Hypoxic respiratory failure Chronic atrial fibrillation Coronary artery disease Normal pressure hydrocephalus Plan: Start usual therapy of Covid 19 pneumonia Consults neurology We'll follow clinical course closely Time with Patient: Greater than 30
[2020-03-11] MEDS: DEXAMETHASONE SOD PHOSPHATE 10 MG/ML 1 ML VIAL IV SCH (19:07)
[2020-03-11] MEDS: ENOXAPARIN 40 MG/0.4 ML SYRINGE SQ SCH (20:00)
[2020-03-11] MEDS ORDERED: REMDESIVIR 200 MG in SODIUM CHLORIDE 0.9% 250 ML IVPB ONE (20:00)
[2020-03-12 06:37] LABS: Anisocytosis Slight; HCT 33.4 % (39.0-53.0); HGB 10.6 gm/dL (13.0-17.5); Hypochromasia Marked; MCHC 31.6 g/dL (31.0-37.0); MCV 101.2 fL (80.0-100.0); Macrocytosis Moderate; Mean Platelet Volume 9.3; Platelet Count 179 k/uL (150-450); RDW 16.9 % (11.5-15.5); WBC 4.4 k/uL (3.8-10.6)
[2020-03-12 06:48] LABS: Calcium 7.6 mg/dL (8.4-10.2); Magnesium 2.1 mg/dL (1.6-2.3); Potassium 4.1 mmol/L (3.5-5.1)
[2020-03-12] MEDS: ENOXAPARIN 40 MG/0.4 ML SYRINGE SQ SCH ×2 (08:42→21:15)
[2020-03-12] MEDS: DEXAMETHASONE SOD PHOSPHATE 10 MG/ML 1 ML VIAL IV SCH (08:43)
--- NOTE | 2020-03-12 09:11 | CDI ---
Documentation Clarification Form Date: 03/12/2020 08:49:07 AM From: Jammie Cancino RN CCDS Admit Date: 03/11/2020 11:38:00 AM Patient Name: Khanh Mahmood Visit Number: [id number] Discharge Date: ATTENTION: The Clinical Documentation Specialists (CDI) and [facility] Coding Staff appreciate your assistance in clarifying documentation. Please respond to the clarification below the line at the bottom and electronically sign. The CDI & [facility] Coding staff will review the response and follow-up if needed. Please note: Queries are made part of the Legal Health Record. If you have any questions, please contact the author of this message via ITS. Dr. Harvinder Noland A stage 2 pressure ulcer Bilateral Buttock was documented in the Nursing wound assessment. History/Risk Factors: 79-year-old male presents to the ED with altered mental status, not feeling well and not eating or drinking. Medical History: Lung Ca with VATS and wedge resection of the right sided lung mass, End Stage COPD, Hypertensive cardiovascular disease, Severe pulmonary hypertension and Chronic kidney disease. Clinical Indicators: Location: Bilateral Buttock Wound description: Stage 2 pressure ulcer; POA; No drainage Treatment: Hydrocolloid; Turn Q2HR Elements for accurate and compliant documentation of an ulcer: *The location/laterality of the ulcer *Etiology (decubitus/pressure, diabetic, PVD) *Stage I-IV, Unstageable, Suspected Deep Tissue Injury (To the deepest stage) *If the ulcer was present at admission (POA) or occurred after admission In your professional opinion, can you please clarify the diagnosis, location, laterality and whether present on admission (POA): Unable to determine Please indicate etiology of pressure ulcer (if known). (Last Revision: December 2016) DARRIOND
--- NOTE | 2020-03-12 09:36 | CDI ---
Documentation Clarification Form Date: 03/13/2020 09:58:29 AM From: Jammie Cancino RN CCDS Admit Date: 03/11/2020 11:38:00 AM Patient Name: Khanh Mahmood Visit Number: [id number] Discharge Date: ATTENTION: The Clinical Documentation Specialists (CDI) and [facility] Coding Staff appreciate your assistance in clarifying documentation. Please respond to the clarification below the line at the bottom and electronically sign. The CDI & [facility] Coding staff will review the response and follow-up if needed. Please note: Queries are made part of the Legal Health Record. If you have any questions, please contact the author of this message via ITS. Dr. Autumn Hairston MD Altered Mental Status, likely related to mild encephalopathy from underlying respiratory dysfunction. Neurology Consult 03/12 History/Risk Factors: 79-year-old male presents to the ED with altered mental status, not feeling well and not eating or drinking. Medical History: Lung Ca with VATS and wedge resection of the right sided lung mass, End Stage COPD, Hypertensive cardiovascular disease, Severe pulmonary hypertension and Chronic kidney disease. Clinical Indicators: HP 03/11: Altered mental status confusion multifactorial maybe related to above (Acute COVID 19 Pneumonia) and Hypoxia Labs 03/10: Wbc 6.0; Lymph 0.3; Coronavirus (PCR) Detected A CXR 03/10: Cardiomegaly with interstitial change, possible pulmonary arterial hypertension and moderate effusions with adjacent atelectasis and/or consolidation. Brain CT 03/10: Stable mild ventriculomegaly likely ex vacuo enlargement from central cerebral atrophy. Stable mild to moderate patchy burden of chronic small vessel ischemic disease. Treatment: 03/10 Vitamin C PO; Rocephin Ivpb Q24HR; 03/11 Decadron IV Daily; Remdesivir Ivpb x 5 bags. In your professional opinion, please clarify the specific type of Encephalopathy, if known. Metabolic Encephalopathy (specify Type and Underlying Medical Illness) Other condition (please specify) Unable to determine (Last Revision: June 2017) In my opinion it is toxic metabolic encephalopathy, probably multifactorial, due to acute Covid 19 pneumonia, Rasheeda albicans UTI, dehydration, anemia, hypernatremia, mild renal insufficiency. Autumn Hairston MD [facility]
[2020-03-12] MEDS: ASCORBIC ACID 500 MG TAB PO SCH ×2 (09:37→21:11)
[2020-03-12] MEDS: POTASSIUM CHLORIDE ER 20 MEQ TAB.ER PO SCH ×2 (09:37→21:11)
[2020-03-12] MEDS: CHOLECALCIFEROL 1,000 UNIT TAB PO SCH (09:37)
[2020-03-12] MEDS: ZINC SULFATE 220 MG CAP PO SCH (09:37)
--- NOTE | 2020-03-12 13:45 | P.PN ---
Subjective Progress Note Date: 03/12/20 Principal diagnosis: Acute covid 19 pneumonia Altered mental status confusion multifactorial may be related to above and hypoxia Hypoxic respiratory failure Chronic atrial fibrillation Coronary artery disease Normal pressure hydrocephalus 03/12/2020, patient seen eval reexamined, patient is being eval by speech therapist soft mechanical diet is okay with honey thick patient is not suited for straws, high risk for aspiration, neurology evaluation pending, This is a 79-year-old male came into the hospital with generalized weakness along with altered mental status, data cannot be obtained from the patient, patient has not been feeling well for some period of time, her appetite has been poor not eating or drinking much denies any chest pain or shortness of breath, overall a poor historian, most of the data has been obtained from the chart, patient does have a history of chronic atrial fibrillation and has been on direct oral anticoagulant, also history of coronary artery disease COPD dyslipidemia hypertension hypertensive cardiovascular disease, patient does have a history of lung cancer he is status post VATS and wedge resection of the right-sided lung mass, patient had end-stage COPD severe pulmonary hypertension along with chronic kidney disease, he has prior history of coronary artery bypass surgery 2002, on arrival his blood pressure was slightly on the low side, no significant tachypnea is noted oxygen saturation is 90-100%, patient sees Dr. ford for primary care activity, his labs were significant for mild anemia,, urine is stable troponin is mildly elevated patient has been found to be covid positive, his computed tomography scan of the head is positive for mild normal pressure hydrocephalus, chest x-ray shows interstitial pneumonia patient is started on zinc with IV Rocephin, we will also put him on Decadron and IV REMdesivir Objective - Vital Signs Vital signs: Vital Signs Temp 97.5 F L 03/12/20 08:37 Pulse 62 03/12/20 12:32 Resp 20 03/12/20 12:32 BP 157/68 03/12/20 12:32 Pulse Ox 92 L 03/12/20 12:32 Intake & Output 03/11/20 03/12/20 03/12/20 18:59 06:59 18:59 Intake Total 1300 240 Output Total 825 Balance 1300 -825 240 Weight 87.5 kg 90 kg Intake: Intake, IV Titration 1300 Amount Potassium Chloride 20 meq 100 In Water For Injection 1 100ml.bag @ 50 mls/hr IVPB Q2H [facility] Rx#: [id number] Potassium Chloride 20 meq 100 In Water For Injection 1 100ml.bag @ 50 mls/hr IVPB Q2H [facility] Rx#: [id number] Sodium Chloride 0.9% 1, 1000 000 ml @ 75 mls/hr IV . [id number] ONE Rx#:[id number] cefTRIAXone 1 gm In 100 Sodium Chloride 0.9% 50 ml @ 100 mls/hr IVPB Q24HR [facility] Rx#:[id number] Oral 240 Output: Urine 825 Other: Voiding Method Indwelling Catheter Indwelling Catheter Indwelling Catheter # Voids 2 - Exam - Constitutional General appearance: average body habitus, disheveled - EENT Eyes: PERRLA Ears: bilateral: normal - Neck Carotids: bilateral: upstroke normal Thyroid: bilateral: normal size - Respiratory Respiratory: bilateral: diminished - Cardiovascular Rhythm: regular Heart sounds: normal: S1, S2 - Gastrointestinal General gastrointestinal: soft - Neurologic Neurologic: CNII-XII intact - Musculoskeletal Musculoskeletal: generalized weakness, strength equal bilaterally - Psychiatric Psychiatric: A&O x's 3 - Labs CBC & Chem 7: 03/12/20 05:58 03/12/20 05:58 Labs: Abnormal Lab Results - Last 24 Hours (Table) 03/12/20 03/12/20 Range/Units 05:58 05:58 RBC 3.30 L (4.30-5.90) m/uL Hgb 10.6 L (13.0-17.5) gm/dL Hct 33.4 L (39.0-53.0) % MCV 101.2 H (80.0-100.0) fL RDW 16.9 H (11.5-15.5) % BUN 33 H (9-20) mg/dL Creatinine 1.40 H (0.66-1.25) mg/dL Glucose 108 H (74-99) mg/dL Calcium 7.6 L (8.4-10.2) mg/dL Assessment and Plan Assessment: Acute covid 19 pneumonia Altered mental status confusion multifactorial may be related to above and hypoxia Hypoxic respiratory failure Chronic atrial fibrillation Coronary artery disease Normal pressure hydrocephalus Plan: Continue usual therapy of Covid 19 pneumonia Speech Therapy evaluation Consults neurology We'll follow clinical course closely Time with Patient: Greater than 30
--- NOTE | 2020-03-12 15:06 | P.CNNES ---
History of Present Illness Consult date: 03/12/20 Requesting physician: Harvinder Noland Reason for Consult: Hydrocephalus History of Present Illness: Patient is a 79-year-old male came to the hospital on 03/10/2020 by ambulance for altered mental status. He has mentioned that he was not feeling well but could not tell the details. As per ED report, he has not been eating or drinking well. Patient denied cough or shortness of breath. However when I asked the patient why he came to the hospital, states due to difficulty breathing. Denies any focal symptoms. Patient's vitals on arrival was blood pressure 102/46, pulse rate 70 temperature 97.1 Patient had computed tomography scan of the head, which revealed stable mild ventriculomegaly likely ex vacuo enlargement from central cerebral atrophy. Correlate to exclude a component of NPH. Stable mild to moderate patchy burden of chronic small vessel ischemic disease. No acute intracranial abnormalities seen. Chest x-ray showed cardiomegaly with interstitial change, possible pulmonary arterial hypertension and moderate effusions with adjacent atelectasis and/or consolidation. Findings worsen from 02/29/2020. Consider worsening CHF versus underlying pneumonia. EKG shows wide QRS rhythm, nonspecific intrav entricular block. Possible right ventricle hypertrophy. Patient's scott virus PCR came positive on 03/10/2020. Patient's WBC 4.4 hemoglobin 10.6 with elevated MCV 101.2, platelets 179. ESR 22, normal electrolytes, BUN 33, creatinine 1.40. Patient's hemoglobin A1c 4.9 on 02/27/2020. Hepatic panel is normal, troponin mildly elevated. UA shows moderate leukocyte esterase, 18 WBCs and occasional bacteria. Urine culture so far negative. Patient's previous B12 was 946 on 06/25/2015, folate 20. Patient appears to be in moderate respiratory distress. He is coughing. Patient denies problems with memory or problems with control of bladder. He states he does have problem with gait and uses wheelchair. Patient not able to provide detailed history because of mental status. Review of Systems Requested as above. ROS unobtainable: due to mental status Past Medical History Past Medical History: Atrial Fibrillation, Coronary Artery Disease (CAD), Cancer, Heart Failure, COPD, Hyperlipidemia, Hypertension, Myocardial Infarction (PR), Renal Disease Additional Past Medical History / Comment(s): R lung cancer with wedge resection-no chemo or radiation, severe pulmonary HTN, CKD stage III, anemia,hiatal hernia, constipation/benign polyp, bradycardia. First degree Heart Block 01/2020. Last Myocardial Infarction Date:: 2002 History of Any Multi-Drug Resistant Organisms: MRSA Date of last positivie culture/infection: 02/10/20 MDRO Source:: Buttock Past Surgical History: Appendectomy, Coronary Bypass/CABG, Heart Catheterization, Orthopedic Surgery, Pacemaker Additional Past Surgical History / Comment(s): 2002 CABG 3 vessel, cardiac angioplasty, R lung wedge resection, R hip closed reduction/ORIF, EGD, colonoscopies/polypectgomies. Past Anesthesia/Blood Transfusion Reactions: No Reported Reaction Additional Past Anesthesia/Blood Transfusion Reaction / Comment(s): CLAUSTERPHOBIA. Pt has received blood in past without reaction. Type of Cardiac Device: Permanent Pacemaker Device Placement Date:: 02/25/20 Past Psychological History: No Psychological Hx Reported Additional Psychological History / Comment(s): Pt resides at [facility] for rehab. Smoking Status: Former smoker Past Alcohol Use History: None Reported Additional Past Alcohol Use History / Comment(s): started smoking at age 18 (1959), quit 2001 smoked 1 ppd. Past Drug Use History: None Reported - Past Family History Father Family Medical History: Cancer Additional Family Medical History / Comment(s): of pancreatic cancer Mother Family Medical History: Diabetes Mellitus Additional Family Medical History / Comment(s): AT AGE 90 WAS IN PRETTY GOOD HEALTH FROM OLD AGE Brother(s) Family Medical History: Diabetes Mellitus Additional Family Medical History / Comment(s): 2 BROTHERS HAVE DIABETES Medications and Allergies Home Medications Medication Instructions Recorded Confirmed Type Tiotropium 18 Mcg/Puff [Spiriva] 1 cap INHALATION RT-DAILY@0800 07/13/13 03/10/20 History Nitroglycerin Sl Tabs [Nitrostat] 0.4 mg SL Q5M PRN 03/19/16 03/10/20 History Ferrous Sulfate [Iron] 325 mg PO TID@0800,1200,1700 11/09/17 03/10/20 History Isosorbide Mononitrate [Isosorbide 30 mg PO BID@0800,1700 11/09/17 03/10/20 History Mononitrate ER] Ipratropium-Albuterol Nebulize 3 ml INHALATION RT-QID PRN 03/22/18 03/10/20 History [Duoneb 0.5 mg-3 mg/3 ml Soln] Apixaban [Eliquis] 2.5 mg PO DIRECTED 09/27/18 03/10/20 History Budesonide-Formot 160-4.5 Mcg 2 puff INHALATION RT-BID@0800,1700 09/25/19 03/10/20 History [Symbicort 160-4.5 Mcg Inhaler] Folic Acid 1 mg PO DAILY@1700 09/25/19 03/10/20 History Ascorbic Acid [Vitamin C] 250 mg PO DAILY@1700 02/09/20 03/10/20 History Multivitamins, Thera [Multivitamin 1 tab PO DAILY@1700 02/09/20 03/10/20 History (formulary)] cycloSPORINE 0.05% OPHTH SOLN 1 drop BOTH EYES BID@0800,2100 02/09/20 03/10/20 History [Restasis] Thiamine [Vitamin B-1] 100 mg PO DAILY@1200 tab 02/14/20 03/10/20 Rx Acetaminophen Tab [Tylenol] 650 mg PO Q6H PRN 02/15/20 03/10/20 History Ensure Clear 120 ml PO TID@0800,1200,1700 02/15/20 03/10/20 History Magnesium Hydroxide [Milk of 7,200 mg PO Q48H PRN 02/15/20 03/10/20 History Magnesia Concentrate] Magnesium Oxide [Mag-Ox] 400 mg PO BID@0800,1700 02/15/20 03/10/20 History Na Phos,M-B/Na Phos,Di-Ba [Fleet 133 ml RECTAL DAILY PRN 02/15/20 03/10/20 History Adult] Pantoprazole [Protonix] 40 mg PO DAILY@0600 02/15/20 03/10/20 History Simvastatin [Zocor] 20 mg PO HS@2100 02/15/20 03/10/20 History Tamsulosin HCl [Flomax] 0.4 mg PO BID@0800,1700 02/15/20 03/10/20 History Theophylline 24 Hour [Fabrice-24] 200 mg PO DAILY@0800 02/15/20 03/10/20 History bisacodyL [Dulcolax] 10 mg RECTAL DAILY PRN 02/25/20 03/10/20 History Furosemide [Lasix] 40 mg PO DAILY@0800 03/10/20 03/10/20 History Linezolid 600 mg PO BID@0800,2100 03/10/20 03/10/20 History Metoprolol Tartrate [Lopressor] 25 mg PO BID@0800,1700 03/10/20 03/10/20 History Potassium Chloride ER [K-Dur 20] 20 meq PO DAILY@0800 03/10/20 03/10/20 History Allergies Allergy/AdvReac Type Severity Reaction Status Date / Time No Known Allergies Allergy Verified 03/10/20 12:46 Physical Examination - Vital Signs Vital Signs: Vital Signs Temp Pulse Resp BP Pulse Ox 03/12/20 08:37 97.5 F L 74 24 160/74 99 03/12/20 03:15 97.2 F L 74 17 160/72 98 03/11/20 23:11 97.2 F L 72 17 157/80 98 03/11/20 20:00 96.8 F L 70 17 147/70 98 03/11/20 16:00 75 16 136/66 100 03/11/20 12:00 96.4 F L 71 17 130/69 99 Intake and Output 03/11/20 03/12/20 03/12/20 22:59 06:59 14:59 Intake Total 1250 240 Output Total 625 200 Balance 625 -200 240 Intake: Intake, IV Titration 1250 Amount Potassium Chloride 20 meq 100 In Water For Injection 1 100ml.bag @ 50 mls/hr IVPB Q2H [facility] Rx#: [id number] Potassium Chloride 20 meq 100 In Water For Injection 1 100ml.bag @ 50 mls/hr IVPB Q2H [facility] Rx#: [id number] Sodium Chloride 0.9% 1, 1000 000 ml @ 75 mls/hr IV . [id number] Rx#:[id number] cefTRIAXone 1 gm In 50 Sodium Chloride 0.9% 50 ml @ 100 mls/hr IVPB Q24HR [facility] Rx#:[id number] Oral 240 Output: Urine 625 200 Other: Voiding Method Indwelling Catheter Indwelling Catheter # Voids 2 Weight 90 kg On examination patient is an elderly male, who is in [id number] respiratory distress, coughing. He has oxygen by nasal cannula. Patient is somewhat groggy, but arousable. He is edentulous. Patient speaks with very low volume, difficult to understand. Patient is fully oriented, knows it is February 2020 and that he is in [facility]. No aphasia or dysarthria. On cranial examination pupils are round and reactive to light, visual horton are full on confrontation, extraocular muscles are intact with no nystagmus. Face is symmetric, tongue protrudes the midline. Palatal elevation and sensation normal, hearing and shoulder shrug normal. On muscle strength testing there is no pronator drift and the strength is normal in the arms and legs. He has some myoclonic jerks of outstretched hands. Reflexes are symmetric and plantars are withdrawal bilaterally. Sensory touch is equal with no neglect. No ataxia for [id number] testing. Gait deferred. On general examination there is no obvious bruit, S1 and S2 audible. Patient has some crackles. Peripheral edema present. Abdomen soft nontender. Results - Laboratory Findings CBC and BMP: 03/12/20 05:58 03/12/20 05:58 Abnormal Lab Findings: Abnormal Labs 03/10/20 03/10/20 03/10/20 12:54 12:54 12:54 RBC 3.01 L Hgb 9.2 L Hct 28.9 L MCV RDW 17.4 H Lymphocytes # 0.3 L PT 15.7 H INR 1.6 H APTT 34.6 H Potassium 2.9 L Carbon Dioxide 34 H BUN 27 H Creatinine 1.69 H Glucose Calcium 7.9 L Total Bilirubin 1.5 H Creatine Kinase <20 L Troponin I Total Protein 5.6 L Albumin 2.2 L Urine Blood Ur Leukocyte Esterase Urine RBC Urine WBC Amorphous Sediment Hyaline Casts Urine Mucus Urine Yeast (Budding) Coronavirus (PCR) 03/10/20 03/10/20 03/10/20 12:54 12:56 13:04 RBC Hgb Hct MCV RDW Lymphocytes # PT INR APTT Potassium Carbon Dioxide BUN Creatinine Glucose Calcium Total Bilirubin Creatine Kinase Troponin I 0.074 H* Total Protein Albumin Urine Blood Small H Ur Leukocyte Esterase Moderate H Urine RBC 9 H Urine WBC 18 H Amorphous Sediment Rare H Hyaline Casts 20 H Urine Mucus Rare H Urine Yeast (Budding) Occasional H Coronavirus (PCR) Detected A 03/10/20 03/10/20 03/10/20 15:52 19:04 21:00 RBC Hgb Hct MCV RDW Lymphocytes # PT INR APTT Potassium 2.9 L Carbon Dioxide BUN Creatinine Glucose Calcium Total Bilirubin Creatine Kinase Troponin I 0.086 H* 0.084 H* Total Protein Albumin Urine Blood Ur Leukocyte Esterase Urine RBC Urine WBC Amorphous Sediment Hyaline Casts Urine Mucus Urine Yeast (Budding) Coronavirus (PCR) 03/11/20 03/11/20 03/12/20 07:11 07:11 05:58 RBC 3.05 L 3.30 L Hgb 9.7 L 10.6 L Hct 29.8 L 33.4 L MCV 101.2 H RDW 16.9 H 16.9 H Lymphocytes # 0.5 L PT INR APTT Potassium 3.4 L Carbon Dioxide 31 H BUN 30 H Creatinine 1.60 H Glucose Calcium 7.7 L Total Bilirubin Creatine Kinase Troponin I Total Protein Albumin Urine Blood Ur Leukocyte Esterase Urine RBC Urine WBC Amorphous Sediment Hyaline Casts Urine Mucus Urine Yeast (Budding) Coronavirus (PCR) 03/12/20 05:58 RBC Hgb Hct MCV RDW Lymphocytes # PT INR APTT Potassium Carbon Dioxide BUN 33 H Creatinine 1.40 H Glucose 108 H Calcium 7.6 L Total Bilirubin Creatine Kinase Troponin I Total Protein Albumin Urine Blood Ur Leukocyte Esterase Urine RBC Urine WBC Amorphous Sediment Hyaline Casts Urine Mucus Urine Yeast (Budding) Coronavirus (PCR) Assessment and Plan Assessment: * Altered mental status, likely related to mild encephalopathy from underlying respiratory dysfunction. Patient has acute COVID-19 pneumonia. * Mild hydrocephalus noted on brain CAT scan. Patient does have significant generalized cortical atrophy, but slightly more prominence of the ventricles, raising concern for possible NPH. * Atrial fibrillation, on anticoagulation. * Pacemaker * Coronary artery disease * Hypertension Plan: * Patient's computed tomography scan of the head was reviewed. There is generalized cerebral atrophy, but slightly more prominence of the ventricles as compared to the cortical atrophy. This raises concern for mild NPH. At this time patient is critically sick because of acute COVID-19 pneumonia. * Once the patient has recovered from his pneumonia, would recommend follow-up with a neurologist as an outpatient, for further evaluation of possible NPH. Patient cannot have MRI because of pacemaker. He may need large volume spinal tap to see if his gait function improves. However all of this can be performed once he has recovered from Covid 19 infection. * We will follow patient sporadically while in the hospital.
[2020-03-12] MEDS: REMDESIVIR 100 MG in SODIUM CHLORIDE 0.9% 250 ML IVPB SCH (21:15)
[2020-03-13] MEDS ORDERED: hydrALAZINE HCL 20 MG/ML 1 ML VIAL IVP PRN (00:08)
[2020-03-13] MEDS: METOPROLOL TARTRATE 5 MG/5 ML VIAL IVP SCH ×4 (05:41→23:57)
[2020-03-13 08:10] LABS: Anisocytosis Slight; HCT 38.6 % (39.0-53.0); HGB 11.4 gm/dL (13.0-17.5); Hypochromasia Marked; MCH 30.8 pg (25.0-35.0); MCHC 29.6 g/dL (31.0-37.0); Macrocytosis Moderate; Mean Platelet Volume 9.4; Platelet Count 197 k/uL (150-450); RBC 3.71 m/uL (4.30-5.90); RDW 17.1 % (11.5-15.5); WBC 5.9 k/uL (3.8-10.6)
[2020-03-13 08:19] LABS: Calcium 8.2 mg/dL (8.4-10.2); Potassium 4.1 mmol/L (3.5-5.1)
[2020-03-13] MEDS: ENOXAPARIN 40 MG/0.4 ML SYRINGE SQ SCH ×3 (09:33→20:44)
[2020-03-13] MEDS: DEXAMETHASONE SOD PHOSPHATE 10 MG/ML 1 ML VIAL IV SCH (09:33)
[2020-03-13] MEDS: ASCORBIC ACID 500 MG TAB PO SCH ×2 (09:52→20:44)
[2020-03-13] MEDS: CHOLECALCIFEROL 1,000 UNIT TAB PO SCH (09:52)
[2020-03-13] MEDS: ZINC SULFATE 220 MG CAP PO SCH (09:52)
[2020-03-13] MEDS: POTASSIUM CHLORIDE ER 20 MEQ TAB.ER PO SCH ×2 (14:03→20:44)
--- NOTE | 2020-03-13 15:10 | P.PN ---
Subjective Progress Note Date: 03/13/20 Principal diagnosis: Acute covid 19 pneumonia Altered mental status confusion multifactorial may be related to above and hypoxia Hypoxic respiratory failure Chronic atrial fibrillation Coronary artery disease Normal pressure hydrocephalus 03/13/2020, patient seen and evaluated examined patient has problems associated with swallowing pills even crushed with applesauce, general surgery has been consulted for PEG tube placement, reviewed CBC stable however sodium is up to 1 50, BUN/creatinine remains stable, patient currently nothing by mouth 03/12/2020, patient seen eval reexamined, patient is being eval by speech therapist soft mechanical diet is okay with honey thick patient is not suited for straws, high risk for aspiration, neurology evaluation pending, This is a 79-year-old male came into the hospital with generalized weakness along with altered mental status, data cannot be obtained from the patient, patient has not been feeling well for some period of time, her appetite has been poor not eating or drinking much denies any chest pain or shortness of breath, overall a poor historian, most of the data has been obtained from the chart, patient does have a history of chronic atrial fibrillation and has been on direct oral anticoagulant, also history of coronary artery disease COPD dyslipidemia hypertension hypertensive cardiovascular disease, patient does have a history of lung cancer he is status post VATS and wedge resection of the right-sided lung mass, patient had end-stage COPD severe pulmonary hypertension along with chronic kidney disease, he has prior history of coronary artery bypass surgery 2002, on arrival his blood pressure was slightly on the low side, no significant tachypnea is noted oxygen saturation is 90-100%, patient sees Dr. ford for primary care activity, his labs were significant for mild anemia,, urine is stable troponin is mildly elevated patient has been found to be covid positive, his computed tomography scan of the head is positive for mild normal pressure hydrocephalus, chest x-ray shows interstitial pneumonia patient is started on zinc with IV Rocephin, we will also put him on Decadron and IV REMdesivir Objective - Vital Signs Vital signs: Vital Signs Temp 97.3 F L 03/13/20 12:00 Pulse 69 03/13/20 12:00 Resp 16 03/13/20 12:00 BP 149/70 03/13/20 12:00 Pulse Ox 95 03/13/20 12:00 Intake & Output 03/12/20 03/13/20 03/13/20 18:59 06:59 18:59 Intake Total 620 100 Output Total 275 400 Balance 345 -400 100 Weight 88 kg 88 kg Intake: Intake, IV Titration 50 100 Amount cefTRIAXone 1 gm In 50 100 Sodium Chloride 0.9% 50 ml @ 100 mls/hr IVPB Q24HR [facility] Rx#:[id number] Oral 570 Output: Urine 275 400 Other: Voiding Method Indwelling Catheter Indwelling Catheter Indwelling Catheter # Bowel Movements 0 - Exam - Constitutional General appearance: average body habitus, disheveled, arousable but poorly responsive - EENT Eyes: PERRLA Ears: bilateral: normal - Neck Carotids: bilateral: upstroke normal Thyroid: bilateral: normal size - Respiratory Respiratory: bilateral: diminished - Cardiovascular Rhythm: regular Heart sounds: normal: S1, S2 - Gastrointestinal General gastrointestinal: soft - Neurologic Neurologic: CNII-XII intact - Musculoskeletal Musculoskeletal: generalized weakness, strength equal bilaterally - Psychiatric Psychiatric: Arousable - Labs CBC & Chem 7: 03/13/20 07:52 03/13/20 07:52 Labs: Abnormal Lab Results - Last 24 Hours (Table) 03/13/20 03/13/20 Range/Units 07:52 07:52 RBC 3.71 L (4.30-5.90) m/uL Hgb 11.4 L (13.0-17.5) gm/dL Hct 38.6 L (39.0-53.0) % MCV 104.0 H (80.0-100.0) fL MCHC 29.6 L (31.0-37.0) g/dL RDW 17.1 H (11.5-15.5) % Sodium 150 H (137-145) mmol/L Chloride 112 H (98-107) mmol/L Carbon Dioxide 31 H (22-30) mmol/L BUN 42 H (9-20) mg/dL Creatinine 1.43 H (0.66-1.25) mg/dL Glucose 117 H (74-99) mg/dL Calcium 8.2 L (8.4-10.2) mg/dL Microbiology - Last 24 Hours (Table) 03/10/20 13:04 Urine Culture - Final Urine,Catheterized Rasheeda albicans Assessment and Plan Assessment: Protein calorie malnourishment Hypernatremia High risk for aspiration and aspiration related complications Acute covid 19 pneumonia Altered mental status confusion multifactorial may be related to above and hypoxia Hypoxic respiratory failure Chronic atrial fibrillation Coronary artery disease Normal pressure hydrocephalus Plan: D5 for hypernatremia Gen. surgery consult for PEG tube placement Continue usual therapy of Covid 19 pneumonia Speech Therapy evaluation Consults neurology We'll follow clinical course closely
--- NOTE | 2020-03-13 16:58 | P.PN ---
Subjective Progress Note Date: 03/13/20 Patient was seen for a follow-up. Patient is laying comfortably in the bed. Still appears to be in distress. Coughing. Denies any new numbness tingling. Objective - Vital Signs Vital signs: Vital Signs Temp 97.3 F L 03/13/20 12:00 Pulse 69 03/13/20 12:00 Resp 16 03/13/20 12:00 BP 149/70 03/13/20 12:00 Pulse Ox 95 03/13/20 12:00 Intake & Output 03/12/20 03/13/20 03/13/20 18:59 06:59 18:59 Intake Total 620 100 Output Total 275 400 Balance 345 -400 100 Weight 88 kg 88 kg Intake: Intake, IV Titration 50 100 Amount cefTRIAXone 1 gm In 50 100 Sodium Chloride 0.9% 50 ml @ 100 mls/hr IVPB Q24HR [facility] Rx#:[id number] Oral 570 0 Output: Urine 275 400 Other: Voiding Method Indwelling Catheter Indwelling Catheter Indwelling Catheter # Bowel Movements 0 - Exam On examination patient appears to be in moderate respiratory distress. He is slightly delirious. Patient does wake up, answers appropriately. He states it's March and the year is . He knows he is in the hospital. Speaks with low volume. Muscle strength is normal in the arms and legs. Plantars are downgoing. - Labs CBC & Chem 7: 03/13/20 07:52 03/13/20 07:52 Labs: Abnormal Lab Results - Last 24 Hours (Table) 03/13/20 03/13/20 Range/Units 07:52 07:52 RBC 3.71 L (4.30-5.90) m/uL Hgb 11.4 L (13.0-17.5) gm/dL Hct 38.6 L (39.0-53.0) % MCV 104.0 H (80.0-100.0) fL MCHC 29.6 L (31.0-37.0) g/dL RDW 17.1 H (11.5-15.5) % Sodium 150 H (137-145) mmol/L Chloride 112 H (98-107) mmol/L Carbon Dioxide 31 H (22-30) mmol/L BUN 42 H (9-20) mg/dL Creatinine 1.43 H (0.66-1.25) mg/dL Glucose 117 H (74-99) mg/dL Calcium 8.2 L (8.4-10.2) mg/dL Microbiology - Last 24 Hours (Table) 03/10/20 13:04 Urine Culture - Final Urine,Catheterized Rasheeda albicans Assessment and Plan Assessment: * Altered mental status, likely related to mild encephalopathy from underlying respiratory dysfunction. Patient has acute COVID-19 pneumonia. * Mild hydrocephalus noted on brain CAT scan. Patient does have significant generalized cortical atrophy, but slightly more prominence of the ventricles, raising concern for possible NPH. * Atrial fibrillation, on anticoagulation. * Pacemaker * Coronary artery disease * Hypertension Plan: * Patient's computed tomography scan of the head was reviewed. There is generalized cerebral atrophy, but slightly more prominence of the ventricles a s compared to the cortical atrophy. This raises concern for mild NPH. At this time patient is critically sick because of acute COVID-19 pneumonia. * Once the patient has recovered from his pneumonia, would recommend follow-up with a neurologist as an outpatient, for further evaluation of possible NPH. Patient cannot have MRI because of pacemaker. He may need large volume spinal tap to see if his gait function improves. However all of this can be performed once he has recovered from Covid 19 infection. * Patient appears slightly more encephalopathic as compared to yesterday. * Telemetry monitoring showing V-paced, atrial flutter. He had a transient run of V. tach. Suggest cardiology eval. * Medical management as per IM/pulmonary.
--- NOTE | 2020-03-13 18:31 | P.GSCN ---
History of Present Illness Consult date: 03/13/20 Reason for Consult: Malnutrition History of present illness: 79-year-old male with recent admission for Covid pneumonia. Patient with multiple underlying medical issues. Currently very weak and having difficulty maintaining his own secretions. Patient has been demonstrating evidence of aspiration and for that reason along with generalized malnutrition we were consulted for PEG tube placement. Denies pain. Pleasantly confused. Past Medical History Past Medical History: Atrial Fibrillation, Coronary Artery Disease (CAD), Cancer, Heart Failure, COPD, Hyperlipidemia, Hypertension, Myocardial Infarction (GA), Renal Disease Additional Past Medical History / Comment(s): R lung cancer with wedge resection-no chemo or radiation, severe pulmonary HTN, CKD stage III, anemia ,hiatal hernia, constipation/benign polyp, bradycardia. First degree Heart Block 01/2020. Last Myocardial Infarction Date:: 2002 History of Any Multi-Drug Resistant Organisms: MRSA Year Discovered:: 02/10/20 MDRO Source:: Buttock Past Surgical History: Appendectomy, Coronary Bypass/CABG, Heart Catheterization, Orthopedic Surgery, Pacemaker Additional Past Surgical History / Comment(s): 2002 CABG 3 vessel, cardiac angioplasty, R lung wedge resection, R hip closed reduction/ORIF, EGD, colonoscopies/polypectgomies. Past Anesthesia/Blood Transfusion Reactions: No Reported Reaction Additional Past Anesthesia/Blood Transfusion Reaction / Comm: CLAUSTERPHOBIA. Pt has received blood in past without reaction. Type of Cardiac Device: Permanent Pacemaker Device Placement Date:: 02/25/20 Past Psychological History: No Psychological Hx Reported Additional Psychological History / Comment(s): Pt resides at [facility] for rehab. Smoking Status: Former smoker Past Alcohol Use History: None Reported Additional Past Alcohol Use History / Comment(s): started smoking at age 18 (1959), quit 2001 smoked 1 ppd. Past Drug Use History: None Reported - Past Family History Father Family Medical History: Cancer Additional Family Medical History / Comment(s): of pancreatic cancer Mother Family Medical History: Diabetes Mellitus Additional Family Medical History / Comment(s): AT AGE 90 WAS IN PRETTY GOOD HEALTH FROM OLD AGE Brother(s) Family Medical History: Diabetes Mellitus Additional Family Medical History / Comment(s): 2 BROTHERS HAVE DIABETES Medications and Allergies Home Medications Medication Instructions Recorded Confirmed Type Tiotropium 18 Mcg/Puff [Spiriva] 1 cap INHALATION RT-DAILY@0800 05/01/14 12/27/20 History Nitroglycerin Sl Tabs [Nitrostat] 0.4 mg SL Q5M PRN 03/19/16 03/10/20 History Ferrous Sulfate [Iron] 325 mg PO TID@0800,1200,1700 11/09/17 03/10/20 History Isosorbide Mononitrate [Isosorbide 30 mg PO BID@0800,1700 11/09/17 03/10/20 History Mononitrate ER] Ipratropium-Albuterol Nebulize 3 ml INHALATION RT-QID PRN 03/22/18 03/10/20 History [Duoneb 0.5 mg-3 mg/3 ml Soln] Apixaban [Eliquis] 2.5 mg PO DIRECTED 09/27/18 03/10/20 History Budesonide-Formot 160-4.5 Mcg 2 puff INHALATION RT-BID@0800,1700 09/25/19 03/10/20 History [Symbicort 160-4.5 Mcg Inhaler] Folic Acid 1 mg PO DAILY@1700 09/25/19 03/10/20 History Ascorbic Acid [Vitamin C] 250 mg PO DAILY@1700 02/09/20 03/10/20 History Multivitamins, Thera [Multivitamin 1 tab PO DAILY@1700 02/09/20 03/10/20 History (formulary)] cycloSPORINE 0.05% OPHTH SOLN 1 drop BOTH EYES BID@0800,2100 02/09/20 03/10/20 History [Restasis] Thiamine [Vitamin B-1] 100 mg PO DAILY@1200 tab 02/14/20 03/10/20 Rx Acetaminophen Tab [Tylenol] 650 mg PO Q6H PRN 02/15/20 03/10/20 History Ensure Clear 120 ml PO TID@0800,1200,1700 02/15/20 03/10/20 History Magnesium Hydroxide [Milk of 7,200 mg PO Q48H PRN 02/15/20 03/10/20 History Magnesia Concentrate] Magnesium Oxide [Mag-Ox] 400 mg PO BID@0800,1700 02/15/20 03/10/20 History Na Phos,M-B/Na Phos,Di-Ba [Fleet 133 ml RECTAL DAILY PRN 02/15/20 03/10/20 History Adult] Pantoprazole [Protonix] 40 mg PO DAILY@0600 02/15/20 03/10/20 History Simvastatin [Zocor] 20 mg PO HS@2100 02/15/20 03/10/20 History Tamsulosin HCl [Flomax] 0.4 mg PO BID@0800,1700 02/15/20 03/10/20 History Theophylline 24 Hour [Fabrice-24] 200 mg PO DAILY@0800 02/15/20 03/10/20 History bisacodyL [Dulcolax] 10 mg RECTAL DAILY PRN 02/25/20 03/10/20 History Furosemide [Lasix] 40 mg PO DAILY@0800 03/10/20 03/10/20 History Linezolid 600 mg PO BID@0800,2100 03/10/20 03/10/20 History Metoprolol Tartrate [Lopressor] 25 mg PO BID@0800,1700 03/10/20 03/10/20 History Potassium Chloride ER [K-Dur 20] 20 meq PO DAILY@0800 03/10/20 03/10/20 History Allergies Allergy/AdvReac Type Severity Reaction Status Date / Time No Known Allergies Allergy Verified 03/10/20 12:46 Surgical - Exam Vital Signs Temp Pulse Resp Pulse Ox 97.1 F L 70 18 100 03/10/20 12:29 03/10/20 12:29 03/10/20 12:29 03/10/20 12:29 Physical exam: General: Elderly male, mild shortness of breath, confused, appears malnourished and quite ill HEENT: Normocephalic, sclerae nonicteric Abdomen: Nontender, nondistended Extremities: Generalized edema Neuro: Alert and confused Results - Labs 03/13/20 07:52 03/13/20 07:52 Abnormal Lab Results - Last 24 Hours (Table) 03/13/20 03/13/20 Range/Units 07:52 07:52 RBC 3.71 L (4.30-5.90) m/uL Hgb 11.4 L (13.0-17.5) gm/dL Hct 38.6 L (39.0-53.0) % MCV 104.0 H (80.0-100.0) fL MCHC 29.6 L (31.0-37.0) g/dL RDW 17.1 H (11.5-15.5) % Sodium 150 H (137-145) mmol/L Chloride 112 H (98-107) mmol/L Carbon Dioxide 31 H (22-30) mmol/L BUN 42 H (9-20) mg/dL Creatinine 1.43 H (0.66-1.25) mg/dL Glucose 117 H (74-99) mg/dL Calcium 8.2 L (8.4-10.2) mg/dL Microbiology - Last 24 Hours (Table) 03/10/20 13:04 Urine Culture - Final Urine,Catheterized Rasheeda albicans Diabetes panel 03/13/20 Range/Units 07:52 Sodium 150 H (137-145) mmol/L Potassium 4.1 (3.5-5.1) mmol/L Chloride 112 H (98-107) mmol/L Carbon Dioxide 31 H (22-30) mmol/L BUN 42 H (9-20) mg/dL Creatinine 1.43 H (0.66-1.25) mg/dL Glucose 117 H (74-99) mg/dL Calcium 8.2 L (8.4-10.2) mg/dL Calcium panel 03/13/20 Range/Units 07:52 Calcium 8.2 L (8.4-10.2) mg/dL Pituitary panel 03/13/20 Range/Units 07:52 Sodium 150 H (137-145) mmol/L Potassium 4.1 (3.5-5.1) mmol/L Chloride 112 H (98-107) mmol/L Carbon Dioxide 31 H (22-30) mmol/L BUN 42 H (9-20) mg/dL Creatinine 1.43 H (0.66-1.25) mg/dL Glucose 117 H (74-99) mg/dL Calcium 8.2 L (8.4-10.2) mg/dL Adrenal panel 03/13/20 Range/Units 07:52 Sodium 150 H (137-145) mmol/L Potassium 4.1 (3.5-5.1) mmol/L Chloride 112 H (98-107) mmol/L Carbon Dioxide 31 H (22-30) mmol/L BUN 42 H (9-20) mg/dL Creatinine 1.43 H (0.66-1.25) mg/dL Glucose 117 H (74-99) mg/dL Calcium 8.2 L (8.4-10.2) mg/dL Assessment and Plan (1) Moderate protein malnutrition Narrative/Plan: 79-year-old male with moderate protein calorie malnutrition along with aspiration. Hiatal hernia listed in the patient's past medical history. No large hiatal hernia seen on recent CAT scan chest. Patient high risk for any surgical intervention including PEG tube placement currently. We'll discuss further with both anesthesia and pulmonary. We'll also discuss with the patient's son. Current Visit: Yes Status: Acute Code(s): E44.0 - MODERATE PROTEIN-CALORIE MALNUTRITION SNOMED Code(s): 828606774
[2020-03-13] MEDS: DEXTROSE 5% IN WATER 1,000 ML IV SCH (18:38)
[2020-03-13] MEDS: REMDESIVIR 100 MG in SODIUM CHLORIDE 0.9% 250 ML IVPB SCH (20:43)
[2020-03-14] MEDS: METOPROLOL TARTRATE 5 MG/5 ML VIAL IVP SCH ×4 (07:01→22:56)
[2020-03-14 08:01] LABS: Anisocytosis Slight; Hypochromasia Marked; MCH 31.6 pg (25.0-35.0); MCHC 30.7 g/dL (31.0-37.0); MCV 102.7 fL (80.0-100.0); Macrocytosis Moderate; Mean Platelet Volume 9.9; Platelet Count 173 k/uL (150-450); RDW 17.1 % (11.5-15.5); WBC 7.3 k/uL (3.8-10.6)
[2020-03-14 08:31] LABS: Calcium 8.2 mg/dL (8.4-10.2); Magnesium 2.3 mg/dL (1.6-2.3); Potassium 4.1 mmol/L (3.5-5.1)
[2020-03-14] MEDS: ASCORBIC ACID 500 MG TAB PO SCH ×2 (09:23→19:54)
[2020-03-14] MEDS: DEXAMETHASONE SOD PHOSPHATE 10 MG/ML 1 ML VIAL IV SCH (09:33)
[2020-03-14] MEDS: ZINC SULFATE 220 MG CAP PO SCH (09:34)
[2020-03-14] MEDS: ENOXAPARIN 40 MG/0.4 ML SYRINGE SQ SCH ×2 (09:34→22:54)
[2020-03-14] MEDS: CHOLECALCIFEROL 1,000 UNIT TAB PO SCH (09:34)
--- NOTE | 2020-03-14 10:41 | P.PN ---
Subjective Progress Note Date: 03/14/20 Principal diagnosis: Malnutrition Patient fatigue this morning. Pulse ox 91% on 2 L. White blood cell count 7.3. Appears confused. No distress. Objective - Vital Signs Vital signs: Vital Signs Temp 98.6 F 03/14/20 04:00 Pulse 62 03/14/20 04:00 Resp 18 03/14/20 04:00 BP 130/67 03/14/20 04:00 Pulse Ox 92 L 03/14/20 04:00 Intake & Output 03/13/20 03/14/20 03/14/20 18:59 06:59 18:59 Intake Total 100 250 Output Total 300 Balance 100 -50 Weight 88 kg 90 kg Intake: Intake, IV Titration 100 250 Amount Remdesivir 100 mg In 250 Sodium Chloride 0.9% 250 ml @ 250 mls/hr IVPB DAILY@2000 [facility] Rx#: [id number] cefTRIAXone 1 gm In 100 Sodium Chloride 0.9% 50 ml @ 100 mls/hr IVPB Q24HR [facility] Rx#:[id number] Oral 0 Output: Urine 300 Other: Voiding Method Indwelling Catheter Indwelling Catheter # Bowel Movements 0 - Exam Abdomen: Soft, nontender, nondistended - Labs CBC & Chem 7: 03/14/20 07:39 03/14/20 07:39 Labs: Abnormal Lab Results - Last 24 Hours (Table) 03/14/20 03/14/20 Range/Units 07:39 07:39 RBC 3.80 L (4.30-5.90) m/uL Hgb 12.0 L (13.0-17.5) gm/dL MCV 102.7 H (80.0-100.0) fL MCHC 30.7 L (31.0-37.0) g/dL RDW 17.1 H (11.5-15.5) % Sodium 150 H (137-145) mmol/L Chloride 114 H (98-107) mmol/L BUN 51 H (9-20) mg/dL Creatinine 1.53 H (0.66-1.25) mg/dL Glucose 116 H (74-99) mg/dL Calcium 8.2 L (8.4-10.2) mg/dL Assessment and Plan (1) Moderate protein malnutrition Narrative/Plan: Patient with protein calorie malnutrition. Will discuss further with pulmonary regarding PEG tube placement. He has been tentatively scheduled for EGD with PEG tube on 03/16. Current Visit: Yes Status: Acute Code(s): E44.0 - MODERATE PROTEIN-CALORIE M ALNUTRITION SNOMED Code(s): 608382393
[2020-03-14 11:40] VITALS: BMI 26.9
[2020-03-14 12:29] LABS: Glucose,Whole Blood 111 mg/dL (75-99)
[2020-03-14] MEDS: DEXTROSE 5% IN WATER 1,000 ML IV SCH (14:36)
--- NOTE | 2020-03-14 16:08 | P.PN ---
Subjective Progress Note Date: 03/14/20 Patient was seen for a follow-up. Patient's mentation is getting further worse. He is having more labored breathing. NG tube is being placed. Patient appears to be in more respiratory distress, coughing. Objective - Vital Signs Vital signs: Vital Signs Temp 97.5 F L 03/14/20 12:00 Pulse 73 03/14/20 12:00 Resp 18 03/14/20 12:00 BP 147/65 03/14/20 12:00 Pulse Ox 95 03/14/20 12:00 Intake & Output 03/13/20 03/14/20 03/14/20 18:59 06:59 18:59 Intake Total 100 250 0 Output Total 300 Balance 100 -50 0 Weight 88 kg 90 kg 90 kg Intake: Intake, IV Titration 100 250 Amount Remdesivir 100 mg In 250 Sodium Chloride 0.9% 250 ml @ 250 mls/hr IVPB DAILY@2000 [facility] Rx#: [id number] cefTRIAXone 1 gm In 100 Sodium Chloride 0.9% 50 ml @ 100 mls/hr IVPB Q24HR [facility] Rx#:[id number] Oral 0 0 Output: Urine 300 Other: Voiding Method Indwelling Catheter Indwelling Catheter Indwelling Catheter # Bowel Movements 0 - Exam Patient's mentation has further worsened. Detailed examination deferred, as patient is undergoing NG tube placement. - Labs CBC & Chem 7: 03/14/20 07:39 03/14/20 07:39 Labs: Abnormal Lab Results - Last 24 Hours (Table) 03/14/20 03/14/20 03/14/20 Range/Units 07:39 07:39 12:23 RBC 3.80 L (4.30-5.90) m/uL Hgb 12.0 L (13.0-17.5) gm/dL MCV 102.7 H (80.0-100.0) fL MCHC 30.7 L (31.0-37.0) g/dL RDW 17.1 H (11.5-15.5) % Sodium 150 H (137-145) mmol/L Chloride 114 H (98-107) mmol/L BUN 51 H (9-20) mg/dL Creatinine 1.53 H (0.66-1.25) mg/dL Glucose 116 H (74-99) mg/dL POC Glucose (mg/dL) 111 H (75-99) mg/dL Calcium 8.2 L (8.4-10.2) mg/dL Assessment and Plan Assessment: * Altered mental status, likely related to toxic metabolic encephalopathy from underlying respiratory dysfunction. Patient has acute COVID-19 pneumonia. Patient's mentation and encephalopathy is getting worse. * Mild hydrocephalus noted on brain CAT scan. Patient does have significant generalized cortical atrophy, but slightly more prominence of the ventricles, raising concern for possible NPH. * Atrial fibrillation, on anticoagulation. * Pacemaker * Coronary artery disease * Hypertension Plan: * Patient's computed tomography scan of the head was reviewed. There is generalized cerebral atrophy, but slightly more prominence of the ventricles as compared to the cortical atrophy. This raises concern for mild NPH. At this time patient is critically sick because of acute COVID-19 pneumonia. * Once the patient has recovered from his pneumonia, would recommend follow-up with a neurologist as an outpatient, for further evaluation of possible NPH. Patient cannot have MRI because of pacemaker. He may need large volume spinal tap to see if his gait function improves. However all of this can be performed once he has recovered from Covid 19 infection. * Patient appears slightly more encephalopathic as compared to yesterday. * Telemetry monitoring showing V-paced, atrial flutter. * Medical management as per IM/pulmonary. * Patient's primary issue is cardiopulmonary status. Neurology will sign off. Please reconsult neurology if any concerns.
[2020-03-14 17:39] LABS: Glucose,Whole Blood 120 mg/dL (75-99)
[2020-03-14] MEDS: REMDESIVIR 100 MG in SODIUM CHLORIDE 0.9% 250 ML IVPB SCH (20:05)
[2020-03-14 20:17] LABS: Glucose,Whole Blood 129 mg/dL (75-99)
[2020-03-15 06:19] LABS: Glucose,Whole Blood 109 mg/dL (75-99)
[2020-03-15] MEDS: METOPROLOL TARTRATE 5 MG/5 ML VIAL IVP SCH ×3 (06:34→16:56)
[2020-03-15 07:56] LABS: Anisocytosis Slight; HCT 38.4 % (39.0-53.0); HGB 11.9 gm/dL (13.0-17.5); Hypochromasia Marked; MCHC 31.1 g/dL (31.0-37.0); Macrocytosis Moderate; Mean Platelet Volume 10.3; Platelet Count 103 k/uL (150-450); RBC 3.73 m/uL (4.30-5.90); RDW 16.7 % (11.5-15.5)
[2020-03-15 08:18] LABS: Calcium 7.8 mg/dL (8.4-10.2); Magnesium 2.2 mg/dL (1.6-2.3); Phosphorus 4.6 mg/dL (2.5-4.5)
[2020-03-15 08:39] LABS: Potassium 4.5 mmol/L (3.5-5.1)
--- NOTE | 2020-03-15 09:12 | CT ---
EXAMINATION TYPE: CT brain wo con DATE OF EXAM: 03/15/2020 HISTORY: R/O CVA, neuro deficit persistent CT DLP: 1268.4 mGycm. Automated Exposure Control for Dose Reduction was Utilized. TECHNIQUE: CT scan of the head is performed without contrast. COMPARISON: CT brain 5 days ago and February 25, 2020. FINDINGS: There is no acute intracranial hemorrhage or midline shift identified. There is diffuse v entricular and sulcal prominence consistent with diffuse age-related cerebral atrophy. There is low- attenuation in the periventricular white matter consistent with chronic small vessel ischemic change. The globes are intact and the visualized sinuses are clear. IMPRESSION: No acute intracranial hemorrhage or midline shift. There is mild to moderate diffuse ag e-related cerebral atrophy and moderate chronic small vessel ischemic change redemonstrated. No sign ificant change from recent studies.
--- NOTE | 2020-03-15 09:46 | P.PN ---
Subjective Progress Note Date: 03/15/20 Principal diagnosis: Malnutrition Patient more lethargic over the last 12-24 hours. Intermittent episodes of tachypnea identified. Patient went for CT brain this morning which was negative. Neurology signed off yesterday. Patient is afebrile. Pulse ox 92%. White blood cell count mildly elevated. Objective - Vital Signs Vital signs: Vital Signs Temp 97.7 F 03/15/20 03:12 Pulse 58 L 03/15/20 03:12 Resp 16 03/15/20 03:12 BP 146/73 03/15/20 03:12 Pulse Ox 92 L 03/15/20 03:12 Intake & Output 03/14/20 03/15/20 03/15/20 18:59 06:59 18:59 Intake Total 0 Balance 0 Weight 90 kg Intake: Oral 0 Other: Voiding Method Indwelling Catheter Indwelling Catheter - Exam Abdomen: Soft, nontender, nondistended - Labs CBC & Chem 7: 03/15/20 07:42 03/15/20 07:42 Labs: Abnormal Lab Results - Last 24 Hours (Table) 03/14/20 03/14/20 03/14/20 Range/Units 12:23 17:35 20:14 WBC (3.8-10.6) k/uL RBC (4.30-5.90) m/uL Hgb (13.0-17.5) gm/dL Hct (39.0-53.0) % MCV (80.0-100.0) fL RDW (11.5-15.5) % Plt Count (150-450) k/uL Sodium (137-145) mmol/L Chloride (98-107) mmol/L BUN (9-20) mg/dL Creatinine (0.66-1.25) mg/dL Glucose (74-99) mg/dL POC Glucose (mg/dL) 111 H 120 H 129 H (75-99) mg/dL Calcium (8.4-10.2) mg/dL Phosphorus (2.5-4.5) mg/dL 03/15/20 03/15/20 03/15/20 Range/Units 06:18 07:42 07:42 WBC 12.0 H (3.8-10.6) k/uL RBC 3.73 L (4.30-5.90) m/uL Hgb 11.9 L (13.0-17.5) gm/dL Hct 38.4 L (39.0-53.0) % MCV 103.0 H (80.0-100.0) fL RDW 16.7 H (11.5-15.5) % Plt Count 103 L (150-450) k/uL Sodium 149 H (137-145) mmol/L Chloride 115 H (98-107) mmol/L BUN 55 H (9-20) mg/dL Creatinine 1.53 H (0.66-1.25) mg/dL Glucose 118 H (74-99) mg/dL POC Glucose (mg/dL) 109 H (75-99) mg/dL Calcium 7.8 L (8.4-10.2) mg/dL Phosphorus 4.6 H (2.5-4.5) mg/dL Assessment and Plan (1) Moderate protein malnutrition Narrative/Plan: Patient clinically deteriorating over the last 48 hours. Apparently the patient's son is coming to visit today and further discussions regarding CODE STATUS to take place at that time. Agree with holding plans for PEG tube given the patient's lethargy and declining condition for now. Will follow. Current Visit: Yes Status: Acute Code(s): E44.0 - MODERATE PROTEIN-CALORIE MALNUTRITION SNOMED Code(s): 535411911
[2020-03-15] MEDS: ENOXAPARIN 40 MG/0.4 ML SYRINGE SQ SCH ×2 (10:07→20:20)
[2020-03-15] MEDS: DEXAMETHASONE SOD PHOSPHATE 10 MG/ML 1 ML VIAL IV SCH (10:08)
[2020-03-15] MEDS: CHOLECALCIFEROL 1,000 UNIT TAB PO SCH (11:46)
[2020-03-15] MEDS: ZINC SULFATE 220 MG CAP PO SCH (11:46)
[2020-03-15] MEDS: ASCORBIC ACID 500 MG TAB PO SCH ×2 (11:46→20:20)
--- NOTE | 2020-03-15 12:00 | P.PN ---
Subjective Progress Note Date: 03/15/20 Came to see patient because patient had a follow-up computed tomography scan of head performed today. Patient's and son were present today. Patient's mentation is getting further worse. Per nurse, his breathing is okay, saturation is well. However when patient is getting worse. Patient not able to swallow any pills. Patient need PEG placement. Patient's son informed that the patient has been getting in and out of the hospital for the last 47 days. The first time he came it was for constipation. He was sent to [facility], then returned to the hospital with bradycardia with heart rate of 30s. He was not placed on pacemaker, sent to the [facility] again. The third time he came was for a cardiac arrest and was hospitalized, defibrillator placed. He was sent back to rehab facility at [facility]. He came back for dehydration, significant peripheral edema. Patient's blood test shows WBC 12.0 hemoglobin 11.9, platelets 13. Sodium is 149, potassium 4.5, BUN 55, creatinine 1.53. TSH is normal. Last troponin is mildly elevated. Patient has UTI with urine scoring Rasheeda albicans. Objective - Vital Signs Vital signs: Vital Signs Temp 97.6 F 03/15/20 08:00 Pulse 72 03/15/20 08:00 Resp 16 03/15/20 08:00 BP 140/64 03/15/20 08:00 Pulse Ox 100 03/15/20 08:00 Intake & Output 03/14/20 03/15/20 03/15/20 18:59 06:59 18:59 Intake Total 0 Balance 0 Weight 90 kg 90 kg Intake: Oral 0 Other: Voiding Method Indwelling Catheter Indwelling Catheter Indwelling Catheter - Exam Patient is obtunded, slightly lethargic, but does open his eyes, but patient's family answers yes and no appropriately. Patient denies headache. Patient's pupils are round and reactive to light. Gaze is midline. Extraocular muscles are intact. No preference. Face is symmetric. Mouth is dry. Skin is dry. Patient moves his arms and legs equally. He has significant peripheral edema. He response to plantar stimulus and very equally. His strength in the arms appears fine. - Labs CBC & Chem 7: 03/15/20 07:42 03/15/20 07:42 Labs: Abnormal Lab Results - Last 24 Hours (Table) 03/14/20 03/14/20 03/14/20 Range/Units 12:23 17:35 20:14 WBC (3.8-10.6) k/uL RBC (4.30-5.90) m/uL Hgb (13.0-17.5) gm/dL Hct (39.0-53.0) % MCV (80.0-100.0) fL RDW (11.5-15.5) % Plt Count (150-450) k/uL Sodium (137-145) mmol/L Chloride (98-107) mmol/L BUN (9-20) mg/dL Creatinine (0.66-1.25) mg/dL Glucose (74-99) mg/dL POC Glucose (mg/dL) 111 H 120 H 129 H (75-99) mg/dL Calcium (8.4-10.2) mg/dL Phosphorus (2.5-4.5) mg/dL 03/15/20 03/15/20 03/15/20 Range/Units 06:18 07:42 07:42 WBC 12.0 H (3.8-10.6) k/uL RBC 3.73 L (4.30-5.90) m/uL Hgb 11.9 L (13.0-17.5) gm/dL Hct 38.4 L (39.0-53.0) % MCV 103.0 H (80.0-100.0) fL RDW 16.7 H (11.5-15.5) % Plt Count 103 L (150-450) k/uL Sodium 149 H (137-145) mmol/L Chloride 115 H (98-107) mmol/L BUN 55 H (9-20) mg/dL Creatinine 1.53 H (0.66-1.25) mg/dL Glucose 118 H (74-99) mg/dL POC Glucose (mg/dL) 109 H (75-99) mg/dL Calcium 7.8 L (8.4-10.2) mg/dL Phosphorus 4.6 H (2.5-4.5) mg/dL Assessment and Plan Assessment: * Altered mental status, likely related to toxic metabolic encephalopathy, probably multifactorial due to acute COVID-19 pneumonia, Rasheeda albicans UTI, dehydration, anemia, hypernatremia, mild renal insufficiency. Patient's mentation and encephalopathy is getting worse. * Hydrocephalus noted on brain CAT scan. He did had computed tomography scan of head done today, which revealed slightly more prominence of the lateral ventricles, suggestive of NPH. * Dysphagia, probably due to #1. * Atrial fibrillation, on anticoagulation. Patient was on Apixaban, but not able to take oral medications, now on full dose anticoagulation with Lovenox. * Pacemaker * Coronary artery disease * Hypertension Plan: * Patient had repeat computed tomography scan of head performed today, which revealed generalized atrophy, with prominence of the ventricles suggestive of possible NPH. On my review, suspect slightly more prominence of the ventricles as compared to the last CAT scan. I spoke to patient's son, who states that patient had no problems with his gait, or memory functions or any signs of dementia before he started getting hospitalization 47 days ago. 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 Patient did have some frequency of urination but was related to use of diuretic. No incontinence. We will proceed with diagnostic and therapeutic lumbar puncture. Patient's son agreed for the lumbar puncture. Interventional radiology consulted. However they are not available until Wednesday. I cannot perform lumbar puncture today because patient has received Lovenox short while ago. I think lumbar puncture by Wednesday should be fine. * Chest x-ray today showed improving bibasilar infiltrates. Patient is somewhat dehydrated, therefore probably not showing signs of congestion. * Telemetry monitoring showing V-paced, atrial flutter. * Medical management as per IM/pulmonary. * Neurology service not available over the weekend. Please perfect serve over the weekend if any concerns. Dr. Romeo Porter will resume neurology service on Wednesday.
[2020-03-15 12:10] LABS: Glucose,Whole Blood 89 mg/dL (75-99)
--- NOTE | 2020-03-15 12:44 | XR ---
EXAMINATION TYPE: XR chest 1V DATE OF EXAM: 03/15/2020 COMPARISON: 03/10/2020 INDICATION: Pneumonia TECHNIQUE: Single frontal view of the chest is obtained. FINDINGS: The heart size is normal. The pulmonary vasculature is normal. Bibasilar infiltrates are present. Small left pleural effusion may be present. Findings are improving from comparison. This may cover is on the left chest. Sternotomy wires are in the midline. IMPRESSION: 1. Improving bibasilar infiltrates.
[2020-03-15] MEDS: DEXTROSE 5% IN WATER 1,000 ML IV SCH (14:16)
--- NOTE | 2020-03-15 15:51 | P.PN ---
Subjective Progress Note Date: 03/14/20 Principal diagnosis: Acute covid 19 pneumonia Altered mental status confusion multifactorial may be related to above and hypoxia Hypoxic respiratory failure Chronic atrial fibrillation Coronary artery disease Normal pressure hydrocephalus 03/14/2020, patient seen eval examined mental status remains marginal barely arousable patient remains nothing by mouth due to high risk of aspiration, multiple attempts for placement GD have been unsuccessful neurology have been consulted multiple times discussed with the family 03/13/2020, patient seen and evaluated examined patient has problems associated with swallowing pills even crushed with applesauce, general surgery has been consulted for PEG tube placement, reviewed CBC stable however sodium is up to 150, BUN/creatinine remains stable, patient currently nothing by mouth 03/12/2020, patient seen eval reexamined, patient is being eval by speech therapist soft mechanical diet is okay with honey thick patient is not suited for straws, high risk for aspiration, neurology evaluation pending, This is a 79-year-old male came into the hospital with generalized weakness along with altered mental status, data cannot be obtained from the patient, patient has not been feeling well for some period of time, her appetite has been poor not eating or drinking much denies any chest pain or shortness of breath, overall a poor historian, most of the data has been obtained from the chart, patient does have a history of chronic atrial fibrillation and has been on direct oral anticoagulant, also history of coronary artery disease COPD dyslipidemia hypertension hypertensive cardiovascular disease, patient does have a history of lung cancer he is status post VATS and wedge resection of the right-sided lung mass, patient had end-stage COPD severe pulmonary hypertension along with chronic kidney disease, he has prior history of coronary artery bypass surgery 2002, on arrival his blood pressure was slightly on the low side, no significant tachypnea is noted oxygen saturation is 90-100%, patient sees Dr. ford for primary care activity, his labs were significant for mild anemia,, urine is stable troponin is mildly elevated patient has been found to be covid positive, his computed tomography scan of the head is positive for mild normal pressure hydrocephalus, chest x-ray shows interstitial pneumonia patient is started on zinc with IV Rocephin, we will also put him on Decadron and IV REMdesivir Objective - Vital Signs Vital signs: Vital Signs Temp 97.5 F L 03/14/20 12:00 Pulse 73 03/14/20 12:00 Resp 18 03/14/20 12:00 BP 147/65 03/14/20 12:00 Pulse Ox 95 03/14/20 12:00 Intake & Output 03/13/20 03/14/20 03/14/20 18:59 06:59 18:59 Intake Total 100 250 0 Output Total 300 Balance 100 -50 0 Weight 88 kg 90 kg 90 kg Intake: Intake, IV Titration 100 250 Amount Remdesivir 100 mg In 250 Sodium Chloride 0.9% 250 ml @ 250 mls/hr IVPB DAILY@2000 [facility] Rx#: [id number] cefTRIAXone 1 gm In 100 Sodium Chloride 0.9% 50 ml @ 100 mls/hr IVPB Q24HR [facility] Rx#:[id number] Oral 0 0 Output: Urine 300 Other: Voiding Method Indwelling Catheter Indwelling Catheter Indwelling Catheter # Bowel Movements 0 - Exam - Constitutional General appearance: average body habitus, disheveled, arousable but poorly responsive - EENT Eyes: PERRLA Ears: bilateral: normal - Neck Carotids: bilateral: upstroke normal Thyroid: bilateral: normal size - Respiratory Respiratory: bilateral: diminished - Cardiovascular Rhythm: regular Heart sounds: normal: S1, S2 - Gastrointestinal General gastrointestinal: soft - Neurologic Neurologic: CNII-XII intact - Musculoskeletal Musculoskeletal: generalized weakness, strength equal bilaterally - Psychiatric Psychiatric: Arousable - Labs CBC & Chem 7: 03/15/20 07:42 03/15/20 07:42 Labs: Abnormal Lab Results - Last 24 Hours (Table) 03/14/20 03/14/20 03/14/20 Range/Units 07:39 07:39 12:23 RBC 3.80 L (4.30-5.90) m/uL Hgb 12.0 L (13.0-17.5) gm/dL MCV 102.7 H (80.0-100.0) fL MCHC 30.7 L (31.0-37.0) g/dL RDW 17.1 H (11.5-15.5) % Sodium 150 H (137-145) mmol/L Chloride 114 H (98-107) mmol/L BUN 51 H (9-20) mg/dL Creatinine 1.53 H (0.66-1.25) mg/dL Glucose 116 H (74-99) mg/dL POC Glucose (mg/dL) 111 H (75-99) mg/dL Calcium 8.2 L (8.4-10.2) mg/dL Assessment and Plan Assessment: Protein calorie malnourishment Hypernatremia High risk for aspiration and aspiration related complications Acute covid 19 pneumonia Altered mental status confusion multifactorial may be related to above and hypoxia Hypoxic respiratory failure Chronic atrial fibrillation Coronary artery disease Normal pressure hydrocephalus Plan: D5 for hypernatremia Gen. surgery consult for PEG tube placement Continue usual therapy of Covid 19 pneumonia Speech Therapy evaluation Consults neurology We'll follow clinical course closely Time with Patient: Greater than 30
--- NOTE | 2020-03-15 15:54 | P.PN ---
Subjective Progress Note Date: 03/15/20 Principal diagnosis: Acute covid 19 pneumonia Altered mental status confusion multifactorial may be related to above and hypoxia Hypoxic respiratory failure Chronic atrial fibrillation Coronary artery disease Normal pressure hydrocephalus 03/15/2020, patient seen eval examined during the rounds labs reviewed medications reviewed, sodium is slowly improving mental status remains poor patient not unable to place NG tube, general surgery is been following the feel patient is a high risk candidate for PEG tube placement, neurology also evaluating the patient, patient remains on usual therapy for Covid 19 pneumonia and rehydration 03/14/2020, patient seen eval examined mental status remains marginal barely arousable patient remains nothing by mouth due to high risk of aspiration, multiple attempts for placement GD have been unsuccessful neurology have been consulted multiple times discussed with the family 03/13/2020, patient seen and evaluated examined patient has problems associated with swallowing pills even crushed with applesauce, general surgery has been c onsulted for PEG tube placement, reviewed CBC stable however sodium is up to 150, BUN/creatinine remains stable, patient currently nothing by mouth 03/12/2020, patient seen eval reexamined, patient is being eval by speech therapist soft mechanical diet is okay with honey thick patient is not suited for straws, high risk for aspiration, neurology evaluation pending, This is a 79-year-old male came into the hospital with generalized weakness along with altered mental status, data cannot be obtained from the patient, patient has not been feeling well for some period of time, her appetite has been poor not eating or drinking much denies any chest pain or shortness of breath, overall a poor historian, most of the data has been obtained from the chart, patient does have a history of chronic atrial fibrillation and has been on direct oral anticoagulant, also history of coronary artery disease COPD dyslipidemia hypertension hypertensive cardiovascular disease, patient does have a history of lung cancer he is status post VATS and wedge resection of the right-sided lung mass, patient had end-stage COPD severe pulmonary hypertension along with chronic kidney disease, he has prior history of coronary artery bypass surgery 2002, on arrival his blood pressure was slightly on the low side, no significant tachypnea is noted oxygen saturation is 90-100%, patient sees Dr. ford for primary care activity, his labs were significant for mild anemia,, urine is stable troponin is mildly elevated patient has been found to be covid positive, his computed tomography scan of the head is positive for mild normal pressure hydrocephalus, chest x-ray shows interstitial pneumonia patient is started on zinc with IV Rocephin, we will also put him on Decadron and IV REMdesivir Objective - Vital Signs Vital signs: Vital Signs Temp 97.4 F L 03/15/20 12:00 Pulse 68 03/15/20 12:00 Resp 16 03/15/20 14:00 BP 125/59 03/15/20 12:00 Pulse Ox 100 03/15/20 12:00 Intake & Output 03/14/20 03/15/20 03/15/20 18:59 06:59 18:59 Intake Total 0 450 Output Total 200 Balance 0 250 Weight 90 kg 90 kg Intake: IV 450 Dextrose 5% in Water 1, 400 000 ml @ 50 mls/hr IV . Q20H [facility] Rx#:[id number] cefTRIAXone 1 gm In 50 Sodium Chloride 0.9% 50 ml @ 100 mls/hr IVPB Q24HR [facility] Rx#:[id number] Oral 0 Output: Urine 200 Other: Voiding Method Indwelling Catheter Indwelling Catheter Indwelling Catheter - Exam - Constitutional General appearance: average body habitus, disheveled, arousable but poorly responsive - EENT Eyes: PERRLA Ears: bilateral: normal - Neck Carotids: bilateral: upstroke normal Thyroid: bilateral: normal size - Respiratory Respiratory: bilateral: diminished - Cardiovascular Rhythm: regular Heart sounds: normal: S1, S2 - Gastrointestinal General gastrointestinal: soft - Neurologic Neurologic: CNII-XII intact - Musculoskeletal Musculoskeletal: generalized weakness, somnolent - Psychiatric Psychiatric: Arousable - Labs CBC & Chem 7: 03/15/20 07:42 03/15/20 07:42 Labs: Abnormal Lab Results - Last 24 Hours (Table) 03/14/20 03/14/20 03/15/20 Range/Units 17:35 20:14 06:18 WBC (3.8-10.6) k/uL RBC (4.30-5.90) m/uL Hgb (13.0-17.5) gm/dL Hct (39.0-53.0) % MCV (80.0-100.0) fL RDW (11.5-15.5) % Plt Count (150-450) k/uL Sodium (137-145) mmol/L Chloride (98-107) mmol/L BUN (9-20) mg/dL Creatinine (0.66-1.25) mg/dL Glucose (74-99) mg/dL POC Glucose (mg/dL) 120 H 129 H 109 H (75-99) mg/dL Calcium (8.4-10.2) mg/dL Phosphorus (2.5-4.5) mg/dL 03/15/20 03/15/20 Range/Units 07:42 07:42 WBC 12.0 H (3.8-10.6) k/uL RBC 3.73 L (4.30-5.90) m/uL Hgb 11.9 L (13.0-17.5) gm/dL Hct 38.4 L (39.0-53.0) % MCV 103.0 H (80.0-100.0) fL RDW 16.7 H (11.5-15.5) % Plt Count 103 L (150-450) k/uL Sodium 149 H (137-145) mmol/L Chloride 115 H (98-107) mmol/L BUN 55 H (9-20) mg/dL Creatinine 1.53 H (0.66-1.25) mg/dL Glucose 118 H (74-99) mg/dL POC Glucose (mg/dL) (75-99) mg/dL Calcium 7.8 L (8.4-10.2) mg/dL Phosphorus 4.6 H (2.5-4.5) mg/dL Assessment and Plan Assessment: Protein calorie malnourishment Hypernatremia High risk for aspiration and aspiration related complications Acute covid 19 pneumonia Altered mental status confusion multifactorial may be related to above and hypoxia Hypoxic respiratory failure Chronic atrial fibrillation Coronary artery disease Normal pressure hydrocephalus Plan: D5 for hypernatremia Aspiration precautions Gen. surgery consult for PEG tube placement Continue usual therapy of Covid 19 pneumonia Speech Therapy evaluation Consults neurology We'll follow clinical course closely Family updated on multiple occasions multiple times also CODE STATUS discussed they still would like to keep patient for code Time with Patient: Greater than 30
[2020-03-15 16:36] LABS: Glucose,Whole Blood 68 mg/dL (75-99)
[2020-03-15] MEDS ORDERED: DEXTROSE 50% SYRINGE 50 ML IVP ONE (16:38)
[2020-03-15 17:08] LABS: Glucose,Whole Blood 100 mg/dL (75-99)
[2020-03-15 20:02] LABS: Glucose,Whole Blood 139 mg/dL (75-99)
[2020-03-15] MEDS: REMDESIVIR 100 MG in SODIUM CHLORIDE 0.9% 250 ML IVPB SCH (20:20)
[2020-03-15 23:47] VITALS: BP 100/51; PULSE 87; RESP 24; TEMP 96.7
[2020-03-15] MEDS ORDERED: SODIUM BICARB 8.4% 50 ML SYR (1 MEQ/ML) ONE (23:54)
[2020-03-15] MEDS ORDERED: EPINEPHrine 10 ML SYRINGE (0.1 MG/ML) ONE (23:54)
[2020-03-15] MEDS ORDERED: CALCIUM CHLORIDE 100 MG/ML 10 ML SYRINGE ONE (23:54)
[2020-03-16 00:32] LABS: Glucose,Whole Blood 100 mg/dL (75-99)
--- NOTE | 2020-03-16 03:38 | P.EN ---
Code blue note Activated at 2354. Arrived on the scene shortly after. The patient was undergoing CPR. Discussed the case with the RN and reviewed the chart. The patient was admitted to the hospital with Covid pneumonia and AMS. He was scheduled to undergo PEG tube placement in am. The patient was found by the RN to be unresponsive with last well known time 2315. The patient was found pulseless with telemetry reporting no changes in the the patients rhythm prior to the event with a paced rhythm on the monitor. The patient was administered IVP Epinehprine x 3, sodium bicarbonate x 1, and calcium chloride x 1. He was in PEA the entire time with no shocks delivered. The nursing staff notified the next of kin (son) who advised to stop further CPR which was halted at 0008. Please refer to the code sheet for further details. Primary team was notified by RN.
--- NOTE | 2020-03-22 14:39 | P.DS ---
Providers Date of admission: 03/11/20 11:38 Expected date of discharge: 03/16/20 (Pronounced at 12:08 a.m. on 03/16/2020) Attending physician: Harvinder Noland Consults: 03/11/20 19:05 Consult Physician Stat Consulting Provider: Autumn Hairston Consult Reason/Comments: hydrocephalis Do you want consulting provider notified?: Yes 03/13/20 00:06 Consult Physician Routine Consulting Provider: Ian Sierra Consult Reason/Comments: PEG tube evaluation Do you want consulting provider notified?: Yes, Notify in am Primary care physician: [facility] Course: 03/16/2020, patient had a CODE BLUE at 11:54 PM, was initiated CPR, patient was found to be unresponsive with last well-known at 2315 patient was found to be pulseless on telemetry, patient was resuscitated as per ACLS protocol remains in PEA the family decided to stop the CPR, he was pronounced at 12:08 a.m. on 03/16/2020 03/15/2020, patient seen eval examined during the rounds labs reviewed medications reviewed, sodium is slowly improving mental status remains poor patient not unable to place NG tube, general surgery is been following the feel patient is a high risk candidate for PEG tube placement, neurology also evaluating the patient, patient remains on usual therapy for Covid 19 pneumonia and rehydration 03/14/2020, patient seen eval examined mental status remains marginal barely arousable patient remains nothing by mouth due to high risk of aspiration, multiple attempts for placement GD have been unsuccessful neurology have been consulted multiple times discussed with the family 03/13/2020, patient seen and evaluated examined patient has problems associated with swallowing pills even crushed with applesauce, general surgery has been consulted for PEG tube placement, reviewed CBC stable however sodium is up to 150, BUN/creatinine remains stable, patient currently nothing by mouth 03/12/2020, patient seen eval reexamined, patient is being eval by speech therapist soft mechanical diet is okay with honey thick patient is not suited for straws, high risk for aspiration, neurology evaluation pending, This is a 79-year-old male came into the hospital with generalized weakness along with altered mental status, data cannot be obtained from the patient, patient has not been feeling well for some period of time, her appetite has been poor not eating or drinking much denies any chest pain or shortness of breath, overall a poor historian, most of the data has been obtained from the chart, patient does have a history of chronic atrial fibrillation and has been on direct oral anticoagulant, also history of coronary artery disease COPD dyslipidemia hypertension hypertensive cardiovascular disease, patient does have a history of lung cancer he is status post VATS and wedge resection of the right-sided lung mass, patient had end-stage COPD severe pulmonary hypertension along with chronic kidney disease, he has prior history of coronary artery bypass surgery 2002, on arrival his blood pressure was slightly on the low side, no significant tachypnea is noted oxygen saturation is 90-100%, patient sees Dr. ford for primary care activity, his labs were significant for mild anemia,, urine is stable troponin is mildly elevated patient has been found to be covid positive, his computed tomography scan of the head is positive for mild normal pressure hydrocephalus, chest x-ray shows interstitial pneumonia patient is started on zinc with IV Rocephin, we will also put him on Decadron and IV REMdesivir Assessment: Protein calorie malnourishment Hypernatremia High risk for aspiration and aspiration related complications Acute covid 19 pneumonia Altered mental status confusion multifactorial may be related to above and hypoxia Hypoxic respiratory failure Chronic atrial fibrillation Coronary artery disease Normal pressure hydrocephalus Plan - Discharge Summary New Discharge Prescriptions: No Action Tiotropium 18 Mcg/Puff [Spiriva] 1 cap INHALATION RT-DAILY@0800 Nitroglycerin Sl Tabs [Nitrostat] 0.4 mg SL Q5M PRN PRN Reason: Chest Pain Ferrous Sulfate [Iron] 325 mg PO TID@0800,1200,1700 Isosorbide Mononitrate [Isosorbide Mononitrate ER] 30 mg PO BID@0800,1700 Ipratropium-Albuterol Nebulize [Duoneb 0.5 mg-3 mg/3 ml Soln] 3 ml INHALATION RT-QID PRN PRN Reason: Shortness Of Breath Apixaban [Eliquis] 2.5 mg PO DIRECTED Budesonide-Formot 160-4.5 Mcg [Symbicort 160-4.5 Mcg Inhaler] 2 puff INHALATION RT-BID@0800,1700 Folic Acid 1 mg PO DAILY@1700 Ascorbic Acid [Vitamin C] 250 mg PO DAILY@1700 cycloSPORINE 0.05% OPHTH SOLN [Restasis] 1 drop BOTH EYES BID@0800,2100 Multivitamins, Thera [Multivitamin (formulary)] 1 tab PO DAILY@1700 Thiamine [Vitamin B-1] 100 mg PO DAILY@1200 tab Acetaminophen Tab [Tylenol] 650 mg PO Q6H PRN PRN Reason: Mild Pain Or Fever > 100.5 Ensure Clear 120 ml PO TID@0800,1200,1700 Magnesium Hydroxide [Milk of Magnesia Concentrate] 7,200 mg PO Q48H PRN PRN Reason: Constipation Magnesium Oxide [Mag-Ox] 400 mg PO BID@0800,1700 Na Phos,M-B/Na Phos,Di-Ba [Fleet Adult] 133 ml RECTAL DAILY PRN PRN Reason: Constipation Pantoprazole [Protonix] 40 mg PO DAILY@0600 Simvastatin [Zocor] 20 mg PO HS@2100 Tamsulosin HCl [Flomax] 0.4 mg PO BID@0800,1700 Theophylline 24 Hour [Fabrice-24] 200 mg PO DAILY@0800 bisacodyL [Dulcolax] 10 mg RECTAL DAILY PRN PRN Reason: Constipation Linezolid 600 mg PO BID@0800,2100 Potassium Chloride ER [K-Dur 20] 20 meq PO DAILY@0800 Furosemide [Lasix] 40 mg PO DAILY@0800 Metoprolol Tartrate [Lopressor] 25 mg PO BID@0800,1700 Discharge Medication List Tiotropium 18 Mcg/Puff [Spiriva] 1 cap INHALATION RT-DAILY@0800 07/13/13 [History] Nitroglycerin Sl Tabs [Nitrostat] 0.4 mg SL Q5M PRN 03/19/16 [History] Ferrous Sulfate [Iron] 325 mg PO TID@0800,1200,1700 11/09/17 [History] Isosorbide Mononitrate [Isosorbide Mononitrate ER] 30 mg PO BID@0800,1700 11/09/17 [History] Ipratropium-Albuterol Nebulize [Duoneb 0.5 mg-3 mg/3 ml Soln] 3 ml INHALATION RT-QID PRN 03/22/18 [History] Apixaban [Eliquis] 2.5 mg PO DIRECTED 07/16/19 [History] Budesonide-Formot 160-4.5 Mcg [Symbicort 160-4.5 Mcg Inhaler] 2 puff INHALATION RT-BID@0800,1700 09/25/19 [History] Folic Acid 1 mg PO DAILY@169909/25/19 [History] Ascorbic Acid [Vitamin C] 250 mg PO DAILY@17002/09/20 [History] Multivitamins, Thera [Multivitamin (formulary)] 1 tab PO DAILY@169902/09/20 [History] cycloSPORINE 0.05% OPHTH SOLN [Restasis] 1 drop BOTH EYES BID@0800,209902/09/20 [History] Thiamine [Vitamin B-1] 100 mg PO DAILY@1200 tab 02/14/20 [Rx] Acetaminophen Tab [Tylenol] 650 mg PO Q6H PRN 02/15/20 [History] Ensure Clear 120 ml PO TID@0800,1200,1700 02/15/20 [History] Magnesium Hydroxide [Milk of Magnesia Concentrate] 7,200 mg PO Q48H PRN 02/15/20 [History] Magnesium Oxide [Mag-Ox] 400 mg PO BID@0800,17002/15/20 [History] Na Phos,M-B/Na Phos,Di-Ba [Fleet Adult] 133 ml RECTAL DAILY PRN 02/15/20 [History] Pantoprazole [Protonix] 40 mg PO DAILY@0600 02/15/20 [History] Simvastatin [Zocor] 20 mg PO HS@209902/15/20 [History] Tamsulosin HCl [Flomax] 0.4 mg PO BID@0800,169902/15/20 [History] Theophylline 24 Hour [Fabrice-24] 200 mg PO DAILY@0800 02/15/20 [History] bisacodyL [Dulcolax] 10 mg RECTAL DAILY PRN 02/25/20 [History] Furosemide [Lasix] 40 mg PO DAILY@0803/10/20 [History] Linezolid 600 mg PO BID@0800,209903/10/20 [History] Metoprolol Tartrate [Lopressor] 25 mg PO BID@0800,1700 03/10/20 [History] Potassium Chloride ER [K-Dur 20] 20 meq PO DAILY@0800 03/10/20 [History] Follow up Appointment(s)/Referral(s): Pete Childs DO [Primary Care Provider] - 1-2 days [facility], [NON-STAFF] - Discharge Disposition: - Preliminary Cause of Preliminary Cause of : covid 19 pneumonia
--- NOTE | 2020-03-26 15:44 | CDI ---
Documentation Clarification Form Date: 03/26/2020 03:42:42 PM From: Yanely Caba RN, CCDS Admit Date: 03/11/2020 11:38:00 AM Patient Name: Khanh Mahmood Visit Number: [id number] Discharge Date: 03/16/2020 02:47:00 AM ATTENTION: The Clinical Documentation Specialists (CDI) and [facility] Coding Staff appreciate your assistance in clarifying documentation. Please respond to the clarification below the line at the bottom and electronically sign. The CDI & [facility] Coding staff will review the response and follow-up if needed. Please note: Queries are made part of the Legal Health Record. If you have any questions, please contact the author of this message via ITS. Dr. Harvinder Noland Hypoxic Respiratory failure is documented in your 03/11 H&P through to your 03/16 D/C Summary and requires an acuity. History/Risk Factors: COPD with severe pulmonary HTN, right lung cancer with right wedge resection, HTN, HLD, CKD stage 3 , anemia, CABG, FLOSSER hydrocephalus, altered mental status, Covid 19 pneumonia, aspiration Tobacco use: former smoker Home oxygen: none documented Clinical Indicators: 03/12 Neurology Consult - 03/14 Neurology progress notes: "On examination patient is an elderly male, who is in [id number] respiratory distress, coughing. Assessment: * Altered mental status, likely related to mild encephalopathy from underlying respiratory dysfunction." 03/10 1229 Vital signs: Temp 97.1, HR 70, RR 18, B/P 102/46, Spo2 100% ra Pulse oximetry: 100% ra in creased to 2L NC spo2 95%, increased to 4l nc spo2 97% 03/15 Attending/Pulmonary Lung/Breathing assessment:" Respiratory: bilateral: diminished." Treatment: Breathing tx: none ordered Continuous Pulse ox Per unit protocol O2/: increased from 2-4L NC In your professional opinion, can you please clarify if these findings signify one of the following conditions? Acute Hypoxic Respiratory Failure (Last Query Form Revision: November 2018) MTDD
--- NOTE | 2020-03-26 15:57 | CDI ---
Documentation Clarification Form Date: 03/26/2020 03:47:50 PM From: Yanely Caba RN, CCDS Admit Date: 03/11/2020 11:38:00 AM Patient Name: Khanh Mahmood Visit Number: [id number] Discharge Date: 03/16/2020 02:47:00 AM ATTENTION: The Clinical Documentation Specialists (CDI) and [facility] Coding Staff appreciate your assistance in clarifying documentation. Please respond to the clarification below the line at the bottom and electronically sign. The CDI & [facility] Coding staff will review the response and follow-up if needed. Please note: Queries are made part of the Legal Health Record. If you have any questions, please contact the author of this message via ITS. Dr. Harvinder Noland Heart failure is documented in the PMH of the H&P and Consults and requires further specificity. History/Risk Factors: Heart failure, Atrial fib, CAD w CABG, HTN, HLD, COPD, OR, CKD stage 3, right lung CA with wedge resection, severe pulmonary HTN Clinical Indicators: 03/10 1229 VS/Pulse OX: Temp 97.1, HR 70, RR 18, B/P 102/46, spo2 100% RA 03/10 BNP: 1810 02/10/20 Echocardiogram Results: mild concentric LVH, EF 50-55% 03/15 Chest X Ray:"Improving bibasilar infiltrates." Treatment: Lopressor 5 mg IVP q 6 hrs Home med Lasix 40 mg PO Daily, Imdur 30 mg Po BID, Lopressor 25 mg PO BID In your professional opinion, can you please clarify the acuity and type of CHF if known? Chronic Diastolic Heart Failure: (Last Revision: June 2017) MTDD
== END 2020-03-16 02:47 | disposition expired | DRG 177 ==
LOC: EC 12:19 → 3SCARD 14:31 → OBSVTOIN 03-11 11:38
PROVIDERS: ADMIT Internal Medicine Sleep Medicine; ATTEND Internal Medicine Sleep Medicine
PROC: XW033E5 Introduction of Remdesivir Anti-infective into Peripheral Vein, Percutaneous Approach, New Technology Group 5 (ICD-10-PCS; principal; 2020-03-11)
PROC: 5A12012 Performance of Cardiac Output, Single, Manual (ICD-10-PCS; 2020-03-16)
PROC: 3E033XZ Introduction of Vasopressor into Peripheral Vein, Percutaneous Approach (ICD-10-PCS; 2020-03-16)
DX: U07.1 COVID-19 (principal); G92 Toxic encephalopathy; J12.82 Pneumonia due to coronavirus disease 2019; J96.01 Acute respiratory failure with hypoxia; J44.0 Chronic obstructive pulmonary disease with (acute) lower respiratory infection; I13.0 Hypertensive heart and chronic kidney disease with heart failure and stage 1 through stage 4 chronic kidney disease, or unspecified chronic kidney disease; G91.2 (Idiopathic) normal pressure hydrocephalus; E44.0 Moderate protein-calorie malnutrition; E87.0 Hyperosmolality and hypernatremia; I48.20 Chronic atrial fibrillation, unspecified; B37.49 Other urogenital candidiasis; I50.32 Chronic diastolic (congestive) heart failure; I49.01 Ventricular fibrillation; I27.20 Pulmonary hypertension, unspecified; I46.9 Cardiac arrest, cause unspecified; R13.10 Dysphagia, unspecified; L89.329 Pressure ulcer of left buttock, unspecified stage; L89.319 Pressure ulcer of right buttock, unspecified stage; I25.10 Atherosclerotic heart disease of native coronary artery without angina pectoris; E78.5 Hyperlipidemia, unspecified; K44.9 Diaphragmatic hernia without obstruction or gangrene; N18.30 Chronic kidney disease, stage 3 unspecified; I44.0 Atrioventricular block, first degree; D12.6 Benign neoplasm of colon, unspecified; E86.0 Dehydration; D63.1 Anemia in chronic kidney disease; R62.7 Adult failure to thrive; K59.00 Constipation, unspecified; I45.4 Nonspecific intraventricular block; G93.89 Other specified disorders of brain; Z79.899 Other long term (current) drug therapy; Z79.51 Long term (current) use of inhaled steroids; Z79.01 Long term (current) use of anticoagulants; I25.2 Old myocardial infarction; Z86.14 Personal history of Methicillin resistant Staphylococcus aureus infection; Z90.49 Acquired absence of other specified parts of digestive tract; Z95.5 Presence of coronary angioplasty implant and graft; Z98.890 Other specified postprocedural states; Z95.1 Presence of aortocoronary bypass graft; Z87.891 Personal history of nicotine dependence; Z80.0 Family history of malignant neoplasm of digestive organs; Z83.3 Family history of diabetes mellitus; Z85.118 Personal history of other malignant neoplasm of bronchus and lung
CPT/HCPCS: 36415; 70450; 71045; 71046; 80048; 80053; 81001; 82550; 83735; 83880; 84100; 84132; 84484; 85025; 85027; 85610; 85730; 87086; 87635; 93005; 96361; 96365; 99285